=== PATIENT | female | born 1945 | race Caucasian/White ===

== ENCOUNTER 2024-02-18 20:51 | Observation (INO) | payer MEDICARE, SELFPAY ==
[2024-02-18 20:55] VITALS: BP 126/65; PULSE 62; TEMP 37.3
--- NOTE | 2024-02-18 21:01 | CT_ITS ---
The [address] [address] Patient Name: CRUZ GREEN MRN: [facility]:[id number] date: 1945 Sex: F Assigned Patient Location: ED.MAIN Current Patient Location: ER Accession/Order Number: [id number] Exam Date: 02/18/2024 21:30 Report Date: 02/18/2024 21:51 At the request of: GIRMA MARKER Procedure: CT cervical spine wo con EXAM: CT cervical spine wo con CLINICAL INDICATION: fall COMPARISON: None. TECHNIQUE: CT scanning of the cervical spine was performed in the axial plane. Coronal and sagittal reconstructed images were performed and viewed. FINDINGS: No acute fracture. The spine is in anatomic alignment. Moderate multilevel degenerative disc and facet disease. The prevertebral soft tissues are unremarkable. 9 mm hypoattenuating right thyroid lobe nodule. CT/CT cervical spine wo con IMPRESSION: No acute fracture. Right thyroid lobe nodule. Consider outpatient workup with dedicated thyroid ultrasound if not previously performed. Electronically authenticated by: JULISSA DIAZ Date: 02/18/2024 21:51
--- NOTE | 2024-02-18 21:01 | XR_ITS ---
The [address] [address] Patient Name: CRUZ GREEN MRN: [id number] date: 1945 Sex: F Assigned Patient Location: ED.MAIN Current Patient Location: ER Accession/Order Number: [id number] Exam Date: 02/18/2024 21:30 Report Date: 02/18/2024 22:12 At the request of: GIRMA MARKER Procedure: XR hip LT 2V w/ pelvis EXAM: XR hip LT 2V w/ pelvis HISTORY: fall, hip pain COMPARISON: No comparison pelvic hip imaging available at the time of dictation. TECHNIQUE: 3 views left hip pelvic x-rays FINDINGS: Mild shortening of the left femoral neck on the first 2 images but not seen on the last third image. No dislocation at the hip joint. Diffuse bony demineralization. Severe arthrosis at the bilateral hip joints, bilateral sacroiliac joints, and symphysis pubic joint. XR/XR hip LT 2V w/ pelvis IMPRESSION: Mild shortening of the left femoral neck on the first 2 images but not seen on the last 3rd image. Diffuse bony demineralization make it difficult to assess for any discrete fracture line by radiograph. Recommend cross-sectional imaging to better evaluate for any subtle subcapital impaction fracture line. Electronically authenticated by: PRABHA NAQVI Date: 02/18/2024 22:12
--- NOTE | 2024-02-18 21:02 | ED_ITS ---
HPI HPI - General Adult General Chief complaint: Extremity Injury, Lower Stated complaint: FALL Time Seen by Provider: 02/18/24 20:57 Mode of arrival: ambulance History of Present Illness HPI narrative: This 78-year-old female who is a resident at the [facility] is brought to the emergency department by EMS after she had a fall. The fall was unwitnessed. She initially had a nosebleed which has resolved and was gesturing that her left hip hurt. The patient is status post CVA with aphasia and right hemiparesis. She has been at the [facility] for the past 2 days and has been receiving subcutaneous heparin. Additional history was obtained from the patient's daughter. The patient had a stroke on December 31. She was initially evaluated at [facility] and found to have carotid artery disease. She was transferred to [facility] [place] where she had a carotid surgery that lasted approximately 10 hours. The daughter states that the patient was able to move all of her extremities and speak until after the carotid surgery. After that she has had right hemiparesis any aphasia. She was sent to [facility] in [place] for brief rehab and then transferred to the [facility]. The patient's daughter is very distraught stating that a DNR was supposed to be signed earlier today at the [facility] but did not get signed. The patient is adamant that she does not want to go to [place] [facility] again. The patient's daughter requested that I signed DNR paperwork for her. I explained DNR comfort care versus comfort care arrest and DNR comfort care paperwork was instituted. Related Data Home Medications ?Medication ?Instructions ?Recorded ?Confirmed aspirin 81 mg capsule 81 mg PO DAILY 02/18/24 02/18/24 cholecalciferol (vitamin D3) 50 50 mcg PO DAILY 02/18/24 02/18/24 mcg (2,000 unit) capsule (D3) diclofenac sodium 1 % topical gel 4 g topical QID 02/18/24 02/18/24 (Aspercreme Arthritis Pain) heparin (porcine) 1,000 unit/mL 5,000 unit subcut TID 02/18/24 02/18/24 injection solution levetiracetam 100 mg/mL oral 750 mg PO Q12H 02/18/24 02/18/24 solution lidocaine 4 % topical patch 1 patch topical DAILY 02/18/24 02/18/24 (Aspercreme (lidocaine)) mirtazapine 15 mg tablet 15 mg PO DAILY 02/18/24 02/18/24 oxycodone 5 mg tablet 5 mg PO Q8H PRN pain 02/18/24 02/18/24 ticagrelor 90 mg tablet (Brilinta) 90 mg PO DAILY 02/18/24 02/18/24 Allergies Allergy/AdvReac Type Severity Reaction Status Date / Time No Known Drug Allergies Allergy Verified 02/18/24 21:10 Opioid HPI Opioid Management Most Recent Opioid Data: No Data to Display Review of Systems ROS Status of ROS 10 or more systems reviewed and unremark able except as noted in history and below Exam Narrative Exam Narrative: Nurses note and vital signs reviewed and patient is not hypoxic. General: Awake and alert but a phasic elderly female, she is able to say yes or no, she is use of her left arm and hand. Left lower extremity is mildly shortened and her knee is bent Skin: Warm, dry, no pallor noted. There is no rash noted. Head: Normocephalic, atraumatic Eye: Normal conjunctiva, no drainage, EOMI. PERRL Ears, Nose, Mouth, and Throat: oral mucosa is moist. No notable facial droop,No active nasal bleeding Neck: no appreciable tenderness and pt shakes her head NO when I palpated her neck and asked if her neck hurt Cardiovascular: Regular Rate and Rhythm S1S2, pulses are brisk and equal bilaterally Respiratory: Patient is in no distress, no accessory muscle use, lungs are clear to auscultation, no wheezing, rales or rhonchi Back: non-tender, no CVA tenderness bilaterally to percussion. GI: Normal bowel sounds, no tenderness to palpation, no masses appreciated. No rebound, guarding, or rigidity noted. Musculoskeletal: Right hemiparesis, tenderness to left proximal femur, ROM was not attempted, left knee is bent and she is not using the left lower extremity, it does not appear to be shortened Neurological: aphasic with right hemiparesis Constitutional Vital Signs, click to edit/add: Last Vital Signs Temp 99.2 F 02/18/24 20:55 Pulse 62 02/18/24 20:55 Resp 18 02/18/24 20:55 BP 126/65 02/18/24 20:55 Course Vital Signs Vital signs: Vital Signs Temperature 99.2 F 02/18/24 20:55 Pulse Rate 62 02/18/24 20:55 Respiratory Rate 18 02/18/24 20:55 Blood Pressure 126/65 02/18/24 20:55 Temperature 99.2 F 02/18/24 20:55 Pulse Rate 62 02/18/24 20:55 Respiratory Rate 18 02/18/24 20:55 Blood Pressure 126/65 02/18/24 20:55 Medical Decision Making MDM Narrative Medical decision making narrative: This 78-year-old female was brought to the emergency department by EMS from the [facility] where she had a fall. She has been receiving subcutaneous heparin injections since being there. She had an unwitnessed fall at the [facility]. History is obtained from the [facility] staff, EMS and her daughter. The valentin phan suffered a stroke on December 31 and was taken to [facility] and ultimately transferred to [facility] in [place] where she had carotid surgery. The patient's daughter states that after the carotid surgery she has been aphasic and had right hemiparesis. She was transferred from [facility] to [facility] in [place] and then to the [facility] for rehab. According to EMS the patient was complaining of pain in the left hip area and they were concerned that she had a broken hip. She was given 25 ?g of fentanyl prior to arrival. Patient is able to speak one or 2 words including yes, no and speak her daughter's name. She has some tenderness in the left proximal femur area but is able to bend at the knee. CT scan of the brain, cervical spine and x-ray of the left hip was ordered. CT scan of the brain shows acute subarachnoid hemorrhage. CT scan of the cervical spine is negative for acute fracture. X-ray of the hip show some shortening of the extremity and a CT scan of the hip was ordered. The patient's daughter also explained to me that DNR paperwork was supposed to be signed by the [facility] physician earlier today but did not get signed. The results of the CT scan of the brain was discussed with the patient's daughter as well as the patient. The patient's daughter initially thought transferring her to [place] where she had been in the past would be a good idea , since she had been there in the recent past, however the patient became extremely upset with this and was crying and communicating with her daughter that she did not want to go. The daughter is distraught but does not wish to refuse the patient and her wishes. We discussed the DNR protocols and ultimately DNR comfort care protocol was instituted. I did explain to the patient's daughter that we do not have neurology or neurosurgery here but she could possibly be observed. The daughter verbalizes understanding of this and communicates to me that the DNR comfort care paperwork is appropriate and she does not wish to have her mother transferred. She was medicated with 4mg IV morphine and 4mg IV zofran for the left hip/leg pain. CT scan of the left hip was reviewed by radiology and is negative for fracture. Pt is agreeable to being admitted here overnight and daughter is also in agreement with this plan Case was discussed with the hospitalist and she is accepted for admission, med/surg, observation status Medical Records Medical records narrative: The [address] [address] [address] Scan Report Signed Patient: CRUZ GREEN MR#: [id number] : 1945 Acct:[id number] Age/Sex: 78 / F ADM Date: 02/18/24 Loc: ER Attending Dr: Ordering Physician: Mildred Goldman Date of Service: 02/18/24 Procedure(s): CT cervical spine wo con Accession Number(s): [id number] cc: Dorian Harrison M.D.~ The [address] [address] Patient Name: CRUZ GREEN MRN: [id number] date: 1945 Sex: F Assigned Patient Location: ED.MAIN Current Patient Location: ER Accession/Order Number: [id number] Exam Date: 02/18/2024 21:30 Report Date: 02/18/2024 21:51 At the request of: MILDRED GOLDMAN Procedure: CT cervical spine wo con EXAM: CT cervical spine wo con CLINICAL INDICATION: fall COMPARISON: None. TECHNIQUE: CT scanning of the cervical spine was performed in the axial plane. Coronal and sagittal reconstructed images were performed and viewed. FINDINGS: No acute fracture. The spine is in anatomic alignment. Moderate multilevel degenerative disc and facet disease. The prevertebral soft tissues are unremarkable. 9 mm hypoattenuating right thyroid lobe nodule. CT/CT cervical spine wo con IMPRESSION: No acute fracture. Right thyroid lobe nodule. Consider outpatient workup with dedicated thyroid ultrasound if not previously performed. Electronically authenticated by: JULISSA DIAZ Date: 02/18/2024 21:[address] [address] [address] Scan Report Signed Patient: CRUZ GREEN MR#: [id number] : 1945 Acct:[id number] Age/Sex: 78 / F ADM Date: 02/18/24 Loc: ER Attending Dr: Ordering Physician: Mildred Goldman Date of Service: 02/18/24 Procedure(s): CT head/brain wo con Accession Number(s): [id number] cc: Dorian Harrison M.D.~ The [place] [address] Patient Name: CRUZ GREEN MRN: [id number] date: 1945 Sex: F Assigned Patient Location: ED.MAIN Current Patient Location: ER Accession/Order Number: [id number] Exam Date: 02/18/2024 21:30 Report Date: 02/18/2024 22:04 At the request of: MILDRED GOLDMAN Procedure: CT head/brain wo con INDICATION: 78 years old; Female. Unwitnessed fall. TECHNIQUE: CT Head (ax/cor/sag reformats). Ionizing radiation dose reduced via iterative reconstruction/FBP blend and body size kV/mA adjustment. Comparison: None FINDINGS: POSTOPERATIVE CHANGES: None. BRAIN PARENCHYMA: Subarachnoid hemorrhage is seen within cortical sulci in the left temporoparietal region. No mass effect is seen. No midline shift or herniation is present. Old lacunar infarction is present in the right saima. Old infarctions are seen in the cerebellar hemispheres bilaterally. Old lacunar infarction in the head of the caudate on the left. Old lacunar infarction in the left thalamus. White matter is normal for age. VENTRICLES/EXTRA-AXIAL SPACES: Enlarged, consistent with atrophy. SINUSES/MASTOIDS: Mucoperiosteal thickening within a posterior ethmoid air cell on the left. Bilateral sphenoid sinus thickening. María bullosa on the right. Nasal septal deviation to the left with spur formation. Mastoids and middle ears are clear. There is a degree of mastoid sclerosis on the left. MSK: No displaced or depressed calvarial fracture. OTHER: No hyperdense intraluminal thrombus. Vascular calcifications are present. CT/CT head/brain wo con IMPRESSION: 1. Subarachnoid hemorrhage within cortical sulci in the left temporoparietal region. 2. Multiple areas of chronic infarction and nonspecific white matter changes. 3. Atrophy. 4. Vascular calcifications. A telephone call regarding the findings in examination was made to and acknowledged by Dr. Goldman in the emergency department at 10:04 PM on 02/18/2024. Electronically authenticated by: DORYS SMALL Date: 02/18/2024 22:04 [place] [address] XRay Report Signed Patient: CRUZ GREEN MR#: [id number] : 1945 Acct:[id number] Age/Sex: 78 / F ADM Date: 02/18/24 Loc: ER Attending Dr: Ordering Physician: Mildred Goldman Date of Service: 02/18/24 Procedure(s): XR hip LT 2V w/ pelvis Accession Number(s): [id number] cc: Dorian Harrison M.D.; Mildred Goldman~ [place] [address] Patient Name: CRUZ GREEN MRN: [id number] date: 1945 Sex: F Assigned Patient Location: ED.MAIN Current Patient Location: ER Accession/Order Number: [id number] Exam Date: 02/18/2024 21:30 Report Date: 02/18/2024 22:12 At the request of: MILDRED GOLDMAN Procedure: XR hip LT 2V w/ pelvis EXAM: XR hip LT 2V w/ pelvis HISTORY: fall, hip pain COMPARISON: No comparison pelvic hip imaging available at the time of dictation. TECHNIQUE: 3 views left hip pelvic x-rays FINDINGS: Mild shortening of the left femoral neck on the first 2 images but not seen on the last third image. No dislocation at the hip joint. Diffuse bony demineralization. Severe arthrosis at the bilateral hip joints, bilateral sacroiliac joints, and symphysis pubic joint. XR/XR hip LT 2V w/ pelvis IMPRESSION: Mild shortening of the left femoral neck on the first 2 images but not seen on the last 3rd image. Diffuse bony demineralization make it difficult to assess for any discrete fracture line by radiograph. Recommend cross-sectional imaging to better evaluate for any subtle subcapital impaction fracture line. Electronically authenticated by: PRABHA NAQVI Date: 02/18/2024 22:12 [place] [address] CT Scan Report Draft Patient: CRUZ GREEN MR#: [id number] : 1945 Acct:[id number] Age/Sex: 78 / F ADM Date: 02/18/24 Loc: ER Attending Dr: Ordering Physician: Mildred Goldman Date of Service: 02/18/24 Procedure(s): CT hip LT wo con Accession Number(s): [id number] cc: ~ [place] [address] Patient Name: CRUZ GREEN MRN: [id number] date: 1945 Sex: F Assigned Patient Location: ER Current Patient Location: ER Accession/Order Number: [id number] Exam Date: 02/18/2024 23:15 Report Date: 02/18/2024 23:54 At the request of: MILDRED GOLDMAN Procedure: CT hip LT wo con Initial impression only. CT/CT hip LT wo con IMPRESSION: 1. Osteopenia. No acute fracture is seen. 2. Mild to moderate left hip joint osteoarthritis. Electronically authenticated by: YANET HOLLIDAY Date: 02/18/2024 23:54 Discharge Plan Discharge Chief Complaint: Extremity Injury, Lower Clinical Impression: Fall from standing, Subarachnoid hemorrhage, Contusion of hip, left Patient Disposition: Admitted as Observation Time of Disposition Decision: 00:12 Condition: Fair Prescriptions / Home Meds: No Action levetiracetam 100 mg/mL solution 750 mg PO Q12H mirtazapine 15 mg tablet 15 mg PO DAILY oxycodone 5 mg tablet 5 mg PO Q8H PRN (Reason: pain) Brilinta 90 mg tablet 90 mg PO DAILY aspirin 81 mg capsule 81 mg PO DAILY diclofenac sodium [Aspercreme Arthritis Pain] 1 % gel 4 g topical QID Rx Instructions: apply to single knee, ankle, foot; for foot includes sole/toes/top of foot heparin (porcine) 1,000 unit/mL solution 5,000 unit subcut TID cholecalciferol (vitamin D3) [D3-2000] 50 mcg (2,000 unit) capsule 50 mcg PO DAILY lidocaine [Aspercreme (lidocaine)] 4 % adhesive patch,medicated 1 patch topical DAILY Rx Instructions: may leave on for up to 12 hrs Print Language: Bhutanese Referrals: Dorian Harrison MD [Primary Care Provider] - 1 week
--- NOTE | 2024-02-18 21:45 | CT_ITS ---
The [address] [address] Patient Name: CRUZ GREEN MRN: [id number] date: 1945 Sex: F Assigned Patient Location: ED.MAIN Current Patient Location: ER Accession/Order Number: [id number] Exam Date: 02/18/2024 21:30 Report Date: 02/18/2024 22:04 At the request of: GIRMA GOLDMAN Procedure: CT head/brain wo con INDICATION: 78 years old; Female. Unwitnessed fall. TECHNIQUE: CT Head (ax/cor/sag reformats). Ionizing radiation dose reduced via iterative reconstruction/FBP blend and body size kV/mA adjustment. Comparison: None FINDINGS: POSTOPERATIVE CHANGES: None. BRAIN PARENCHYMA: Subarachnoid hemorrhage is seen within cortical sulci in the left temporoparietal region. No mass effect is seen. No midline shift or herniation is present. Old lacunar infarction is present in the right saima. Old infarctions are seen in the cerebellar hemispheres bilaterally. Old lacunar infarction in the head of the caudate on the left. Old lacunar infarction in the left thalamus. White matter is normal for age. VENTRICLES/EXTRA-AXIAL SPACES: Enlarged, consistent with atrophy. SINUSES/MASTOIDS: Mucoperiosteal thickening within a posterior ethmoid air cell on the left. Bilateral sphenoid sinus thickening. María bullosa on the right. Nasal septal deviation to the left with spur formation. Mastoids and middle ears are clear. There is a degree of mastoid sclerosis on the left. MSK: No displaced or depressed calvarial fracture. OTHER: No hyperdense intraluminal thrombus. Vascular calcifications are present. CT/CT head/brain wo con IMPRESSION: 1. Subarachnoid hemorrhage within cortical sulci in the left temporoparietal region. 2. Multiple areas of chronic infarction and nonspecific white matter changes. 3. Atrophy. 4. Vascular calcifications. A telephone call regarding the findings in examination was made to and acknowledged by Dr. Goldman in the emergency department at 10:04 PM on 02/18/2024. Electronically authenticated by: DORYS SMALL Date: 02/18/2024 22:04
--- NOTE | 2024-02-18 22:18 | CT_ITS ---
The [address] [address] Patient Name: CRUZ GREEN MRN: [id number] date: 1945 Sex: F Assigned Patient Location: ER Current Patient Location: ER Accession/Order Number: [id number] Exam Date: 02/18/2024 23:15 Report Date: 02/19/2024 00:03 At the request of: GIRMA ZAMORA Procedure: CT hip LT wo con EXAM: CT hip LT wo con HISTORY: Fall, hip pain, unwitnessed fall. Left hip pain. COMPARISON: X-rays 02/18/2024. TECHNIQUE: Multiple axial unenhanced CT images of the left hip were supplemented with 2-D coronal and sagittal reformations. Dose reduction techniques were achieved by using automated exposure control and/or adjustment of mA and/or kV according to patient size and/or use of iterative reconstruction technique. FINDINGS: Bones are osteopenic. Bony pelvis appears preserved, as seen. Mild to moderate marginal spur involving the left hip. Left hip is normally located. Left femoral head appears smooth. Left femoral neck is maintained. Mild to moderate calcific plaque is seen. Small left inguinal hernia containing fat. Major tendon origins and insertions along the left hip appear preserved. Left sciatic nerve appears unremarkable. CT/CT hip LT wo con IMPRESSION: 1. Osteopenia. No acute fracture is seen. 2. Mild to moderate left hip joint osteoarthritis. Electronically authenticated by: YANET HOLLIDAY Date: 02/19/2024 00:03
[2024-02-19] MEDS: MORPHINE SULFATE 4 MG/ML VIAL IV (00:08)
[2024-02-19] MEDS: ONDANSETRON PF 4 MG/2 ML VIAL IV (00:09)
[2024-02-19 00:12] VITALS: BP 145/79; PULSE 76; O2SAT 98
[2024-02-19 01:16] VITALS: BP 136/73; PULSE 53; TEMP 36.2; O2SAT 96; BMI 22.2
[2024-02-19 01:35] VITALS: PULSE 53; O2SAT 96
[2024-02-19 02:18] LABS: Prothrombin Time 9.8 sec (9.0-11.6)
[2024-02-19 02:19] LABS: Alanine Aminotransferase 27 U/L (14-59); Albumin Globulin Ratio 0.8; Albumin Level 2.6 g/dL (3.4-5.0); Alkaline Phosphatase 87 U/L (46-116); Anion Gap 11.5; Aspartate Amino Transferase 35 U/L (15-37); BUN Creatinine Ratio 12.9; Bilirubin Total 0.2 mg/dL (0.2-1.0); Carbon Dioxide 24.4 mmol/L (21.0-32.0); Chloride 109 mmol/L (98-107); Estimated GFR (African America 44 (>=60); Estimated GFR (Non-African Ame 36 (>=60); Globulin 3.3 g/dL; Glucose 106 mg/dL (74-106); Potassium 4.9 mmol/L (3.5-5.1); Sodium 140 mmol/L (136-145); Total Protein 5.9 g/dL (6.4-8.2)
[2024-02-19 02:21] LABS: INR <0.93
[2024-02-19 02:37] LABS: Basophils Percent Auto 0.3 % (0.2-2.0); Eosinophils Absolute Auto 0.1 10^3/uL (0.0-0.7); Eosinophils Percent Auto 1.8 % (0.9-7.0); Hematocrit 35.3 % (36.0-48.0); Hemoglobin 10.9 g/dL (12.0-16.0); Immature Granulocytes Abs Auto 0.04 10^3/uL (0.00-0.03); Immature Granulocytes Pct Auto 0.5 % (0.0-0.5); Lymphocytes Absolute Auto 1.4 10^3/uL (1.2-3.8); Lymphocytes Percent Auto 18.7 % (20.5-60.0); Mean Corpuscular HGB Conc 30.9 g/dL (29.9-35.2); Mean Corpuscular Hemoglobin 29.5 pg (26.7-34.0); Mean Corpuscular Volume 95.7 fL (81.0-99.0); Mean Platelet Volume 9.7 fL (9.5-13.5); Monocytes Absolute Auto 0.7 10^3/uL (0.3-0.8); Monocytes Percent Auto 9.2 % (1.7-12.0); Neutrophils Absolute Auto 5.3 10^3/uL (1.4-6.5); Neutrophils Percent Auto 69.5 % (43.0-75.0); Platelet Count 342 10^3/uL (150-450); Red Blood Count 3.69 10^6/uL (4.20-5.40); Red Cell Distribution Width 16.8 % (11.0-15.0); White Blood Count 7.6 10^3/uL (4.0-11.0)
[2024-02-19 03:14] LABS: Bilirubin Urine NEGATIVE (NEGATIVE); Blood Urine NEGATIVE (NEGATIVE); Clarity Urine CLEAR (CLEAR); Color Urine LT. YELLOW (YELLOW); Glucose Urine UA NEGATIVE (NEGATIVE); Ketones Urine TRACE mg/dL (NEGATIVE); Leukocyte Esterase Urine SMALL (NEGATIVE); Nitrite Urine NEGATIVE (NEGATIVE); Protein Urine NEGATIVE (NEG/TRACE); Specific Gravity Urine 1.025 (1.005-1.025); Urobilinogen Urine 0.2 EU/dL (0.2-1.0); pH Urine 5.5 (5.0-9.0)
[2024-02-19 03:20] LABS: Bacteria Urine SMALL #/HPF (NONE SEEN); Cast Seen? SEEN #/LPF (NONE SEEN); Crystals Seen? None Seen #/HPF (None Seen); Mucus Urine NONE SEEN (NONE SEEN); Squamous Epithelial Cell Urine MODERATE #/LPF (NONE/RARE)
[2024-02-19 03:21] LABS: Hyaline Casts Urine RARE; Urine Culture Indicated YES
[2024-02-19 09:00] VITALS: BP 107/45; BP 86/59; PULSE 63; TEMP 37.2; O2SAT 93
--- NOTE | 2024-02-19 09:29 | SWNOTE1 ---
LACEY sent email to Guicho at [facility] and Guicho confirmed that pt is at [facility] skilled for rehab.
[2024-02-19] MEDS: OXYCODONE HCL 5 MG TABLET PO (09:31)
[2024-02-19] MEDS: LEVETIRACETAM 500 MG in 0.9 % SODIUM CHLORIDE 100 ML 420 MG IV (09:31)
[2024-02-19] MEDS: MIRTAZAPINE 15 MG TABLET PO (09:32)
[2024-02-19] MEDS: LIDOCAINE 5% PATCH 1 PATCH TOPICAL (09:32)
[2024-02-19] MEDS: CHOLECALCIFEROL (VITAMIN D3) 25 MCG/1,000 UNITS TABLET 50 MCG PO (09:32)
[2024-02-19] MEDS: 0.9 % SODIUM CHLORIDE 500 ML 250 ML IV (09:38)
--- NOTE | 2024-02-19 09:56 | P.HP_ITS ---
<Statement entered by Sabrina Enriquez, - 02/20/24 09:50> This documentation has been reviewed and approved.I have also seen and assessed patient and agree to the above findings and plan of care. HPI H&P: HPI History of Present Illness Chief complaint: FALL SAH LEFT HIP CONTUSION Narrative: 02/19/24 0900 This is a 78-year-old female patient with a past medical history as outlined below significant for recent CVA (01/01/2024 with subsequent carotid endarterectom y with worsened right-sided symptoms post endarterectomy and seizure activity on EEG; who presented to the ED from a local SNF last night after suffering an unwitnessed fall. Cause of the fall is unclear, but it appears the patient was trying to put herself to bed from her wheelchair and she is unable to stand and walk independently. She complained of left hip pain after the fall and the limb appeared to be shortened. She was brought to the ED for further evaluation. Workup in the ED was negative for acute fracture of the hip. Initial x-ray indicated shortening of the femur with no obvious fracture. A follow-up CT of the hip and pelvis showed no acute fracture or dislocation. CT of the cervical spine was negative for fracture but did show incidental thyroid nodule. CT of the head revealed subarachnoid hemorrhage in the left temporoparietal region, without mass effect, midline shift, or herniation. Multiple old areas of infarction were noted. The patient adamantly refuses transfer to tertiary facility for specialty neurology and neurosurgery care. She was admitted in our facility in observation for neurologic monitoring early this morning. At the time of my exam the patient is resting in bed. She was initially restless and tearful and nodded her head yes to hip pain when questioned. She was repositioned and her pain improved. Her daughter is at the bedside and giv es a full history of the patient's recent medical history. At baseline she has severe residual right-sided hemiparesis and expressive aphasia. She is normally only able to say yes , no , and her daughter's name Nuvia . Interestingly, she was able to be more expressive last night when she was refusing transfer. Per the patient's daughter, the patient's neurologic status is stable at her [facility]. She will be seen by PT/OT/[employer] services today. Nursing will monitor for neurologic changes. If she remains stable discharged back to her local SNF is possible as the patient is a DNR CC and is refusing interventional care for her new subarachnoid hemorrhage. We did briefly discuss possible hospice admission, and the patient's daughter would like to continue pursuing strengthening for now. If the patient shows any further decline in her neurologic status, then hospice would be considered. DISCHARGE: As the pt is at her baseline neurologic status and she is refusing transfer for interventional neurology care, she is being discharged back to her SNF in stable condition. Her home aspirin, brilinta, and heparin have been held d/t her acute subarachnoid hemorrhage. She should follow up with neurology as soon as possible to discuss if these should be resumed. Aggressive PO/OT/[employer] services should be continued at the SNF. Opioid HPI Opioid Management Most Recent Opioid Data: Last Pain Assessment 02/19/24 11:47 Last MAR Pain Assessment 02/19/24 10:30 Last ORT Total Score 0 02/19/24 01:16 Last ORT Risk Category Low Risk 02/19/24 01:16 Review of Systems ROS Status of ROS unobtainable due to medical condition (Near total expressive aphasia) PFSH [facility] Medical History (Updated 02/19/24 @ 11:25 by Kaelyn Calderón NP) Seizure-like activity ?R56.9 - Unspecified convulsions (ICD-10) Hyperlipidemia ?E78.5 - Hyperlipidemia, unspecified (ICD-10) HTN (hypertension) ?I10 - Essential (primary) hypertension (ICD-10) CKD stage 3a, GFR 45-59 ml/min ?N18.31 - Chronic kidney disease, stage 3a (ICD-10) Expressive aphasia ?R47.01 - Aphasia (ICD-10) CVA, old, hemiparesis ?I69.359 - Hemiplegia and hemiparesis following cerebral infarction affecting unspecified side (ICD-10) Family History (Updated 02/19/24 @ 01:24 by Noemi Garcia) Other Family history of cancer Family history of hypertension Family history of myocardial infarction Family history of stroke Social History (Updated 02/19/24 @ 01:25 by Noemi Garcia) Within the past year, how often did you have a drink containing alcohol: never Score interpretation: A score less than 3 is consistent with normal alcohol consumption. Smoking status: Never smoker Non-prescribed substance use: denies use Previous occupational history: Retired Are you now , , , , never or living with a partner: In a typical week, how many times do you talk on the telephone with family, friends, or neighbors: 3 or more times per week How often do you get together with friends or relatives: 3 or more times per week Do you think of yourself as: straight/heterosexual Gender Identity: female Meds Home Medications and Allergies Home Medications ?Medication ?Instructions ?Recorded ?Confirmed ?Type aspirin 81 mg capsule 81 mg PO DAILY 02/18/24 02/18/24 History cholecalciferol (vitamin D3) 50 50 mcg PO DAILY 02/18/24 02/18/24 History mcg (2,000 unit) capsule (D3-2000) diclofenac sodium 1 % topical gel 4 g topical QID 02/18/24 02/18/24 History (Aspercreme Arthritis Pain) heparin (porcine) 1,000 unit/mL 5,000 unit subcut TID 02/18/24 02/18/24 History injection solution levetiracetam 100 mg/mL oral 750 mg PO Q12H 02/18/24 02/18/24 History solution lidocaine 4 % topical patch 1 patch topical DAILY 02/18/24 02/18/24 History (Aspercreme (lidocaine)) mirtazapine 15 mg tablet 15 mg PO DAILY 02/18/24 02/18/24 History oxycodone 5 mg tablet 5 mg PO Q8H PRN pain 02/18/24 02/18/24 History ticagrelor 90 mg tablet (Brilinta) 90 mg PO DAILY 02/18/24 02/18/24 History Allergies Allergy/AdvReac Type Severity Reaction Status Date / Time No Known Drug Allergies Allergy Verified 02/18/24 21:10 Exam Constitutional Vital Signs, click to edit/add: Last Vital Signs Temp 97.2 F L 02/19/24 01:16 Pulse 53 L 02/19/24 01:35 Resp 18 02/19/24 01:35 BP 136/73 02/19/24 01:16 Pulse Ox 96 02/19/24 01:35 O2 Del Method Room Air 02/19/24 01:35 Common normals: alert and well nourished Exam limitations: physical limitations (R side hemiparesis) and other l imitations (Expressive aphasia) General appearance: cooperative (within physical limitations) Orientation/consciousness: Yes awake Other: Unable to fully assess orientation or confusion d/t near total expressive aphasia HENMT Common normals: normocephalic, hearing grossly normal bilaterally, external nose normal and moist oral mucous membranes Head and scalp: normocephalic Eye Common normals: PERRL, EOMs intact bilaterally, conjunctivae normal and no scleral icterus Alignment: alignment normal Eyelid: eyelids normal Neck & C-Spine Common normals: full ROM, supple and no JVD Chest Common normals: inspection of chest normal Chest: symmetrical chest wall rise Respiratory Common normals: normal respiratory effort, no retractions, no use of accessory muscles and clear to auscultation bilaterally Cardio Common normals: no JVD, regular rate, regular rhythm, S1 normal heart sound, S2 normal heart sound, no gallops, no clicks, no murmurs, no rub and peripheral pulses 2+ throughout GI Common normals: Normal to inspection, nondistended, normoactive bowel sounds present, soft to palpation, non-tender, no hepatosplenomegaly, no masses and no bruits Bladder/kidney exam: bladder normal to palpation Extremity Common normals: normal capillary refill General: normal exam except as noted and edema (Tr LLE, 1+ RLE); no clubbing and no cyanosis Left lower extremity: hip joint Left hip: palpation (Tender) Neuro [place] Coma Scale: GCS not evaluated Sensorium/orientation: awake and alert Speech: expressive aphasia (Near total) Motor exam: other (Chronic R side hemiparesis, R facial droop) Psych Speech: other (Near total expressive aphasia) Results Labs Labs: Short CBC 02/19/24 Range/Units 01:56 WBC 7.6 (4.0-11.0) 10^3/uL Hgb 10.9 L (12.0-16.0) g/dL Hct 35.3 L (36.0-48.0) % Plt Count 342 (150-450) 10^3/uL BMP 02/19/24 01:56 Sodium 140 Potassium 4.9 Chloride 109 H Carbon Dioxide 24.4 BUN 18.0 Creatinine 1.40 H Glucose 106 Calcium 10.0 Liver Function 02/19/24 Range/Units 01:56 Total Bilirubin 0.2 (0.2-1.0) mg/dL AST 35 (15-37) U/L ALT 27 (14-59) U/L Alkaline Phosphatase 87 (46-116) U/L Albumin 2.6 L (3.4-5.0) g/dL Urine 02/19/24 Range/Units 03:02 Urine Color Lt. yellow (YELLOW) Urine Clarity Clear (CLEAR) Urine pH 5.5 (5.0-9.0) Ur Specific [place] 1.025 (1.005-1.025) Urine Protein Negative (NEG/TRACE) mg/dL Urine Glucose (UA) Negative (NEGATIVE) mg/dL Pulse Oximetry Attestation: I have reviewed the pertinent pulse oximetry results. Imaging L Hip/Pelvis X-ray: Attestation: I have reviewed the pertinent imaging results. Radiologist's impression: IMPRESSION: Mild shortening of the left femoral neck on the first 2 images but not seen on the last 3rd image. Diffuse bony demineralization make it difficult to assess for any discrete fracture line by radiograph. Recommend cross-sectional imaging to better evaluate for any subtle subcapital impaction fracture line. CT Scan - L Hip/Pelvis: Attestation: I have reviewed the pertinent imaging results. Radiologist's impression: IMPRESSION: 1. Osteopenia. No acute fracture is seen. 2. Mild to moderate left hip joint osteoarthritis. CT scan - head: Attestation: I have reviewed the pertinent imaging results. Radiologist's impression: IMPRESSION: 1. Subarachnoid hemorrhage within cortical sulci in the left temporoparietal region. 2. Multiple areas of chronic infarction and nonspecific white matter changes. 3. Atrophy. 4. Vascular calcifications. CT Scan - Cervical Spine: Attestation: I have reviewed the pertinent imaging results. Radiologist's impression: IMPRESSION: No acute fracture. Right thyroid lobe nodule. Consider outpatient workup with dedicated thyroid ultrasound if not previously performed. Assessment and Plan Assessment and Plan (1) Subarachnoid hemorrhage: Assessment and Plan: Acute * Adm observation * 2/2 to unwitnessed fall last night * Pt refusing transfer to tertiary center or interventional management * Pt made DNR CC in the ED * Neuro checks q8h to monitor for neurologic decline * Per daughter at bedside, pt is at her baseline neurologic status * If no decline is noted for the next several hrs, pt will likely be discharged back to the SNF for continued rehab therapy * Discussed with pt's daughter, if pt experiences neurologic decline then hospice/comfort care could be considered at the SNF. She verbalizes understanding. (2) Unwitnessed fall: Assessment and Plan: Acute * Fall at SNF last night * Family suspects pt was trying to put herself to bed, but she is unable to stand by herself (3) JAMEE (acute kidney injury): Assessment and Plan: Acute * Mild JAMEE on CKD3a * NS 500 ml bolus over 2 hrs * Encourage increased PO fluid intake (4) Contusion of hip, left: Assessment and Plan: Acute * No fracture identified on hip XR or CT hip * PRN IVP MS or Oxycodone (5) CVA, old, hemiparesis: Assessment and Plan: Chronic * R side residual hemiparesis (6) CKD stage 3a, GFR 45-59 ml/min: Assessment and Plan: Chronic * Pt at risk for dehydration and JAMEE d/t expressive aphasia and mild dysphagia from CVA * Push oral fluids (7) Seizure-like activity: Assessment and Plan: Chronic * Continue home Keppra Urinary Catheter Management Urinary Catheter Management Urethral: Cath placed during this visit: yes Urethral indwelling: Yes Reason for continuing: decision to DC catheter Insertion date: 02/19/24 Insertion time: 02:50
--- NOTE | 2024-02-19 10:20 | SWNOTE1 ---
SW did reach out to Guicho at [facility] to see if pt can return within 24 hours since she is in observation and she would not have to be precerted again. LACEY waiting to hear back. Daughter spoke with Guicho at [facility] and daughter is paying to hold the bed.
--- NOTE | 2024-02-19 12:00 | CM.NOTE ---
Rounds made with Dr. Enriquez, pt resting quietly eyes closed. Dr. Enriquez talked with pt's granddaughter regarding plan of care. Pt and family wishes were to not be transferred to a higher level of care for intervention. Code status was changed to DNRCC. Family wishes are to send patient back to attempt to resume skilled therapy, if she were to decline than consult hospice care.
--- NOTE | 2024-02-19 12:12 | SWNOTE1 ---
LACEY called Guicho at [facility] to check if pt can come back without precert. Guicho is waiting to hear from here boss. LACEY did send Guicho an email to let her know the plan is for discharge today. LACEY updated family and let them know we are waiting to hear from the [facility].
--- NOTE | 2024-02-19 13:14 | SWNOTE1 ---
LACEY sent Guicho another email and called. She had someone in her office and they will have her call once done.
[2024-02-19 13:46] VITALS: BP 99/56; PULSE 47; TEMP 37.2; O2SAT 95
[2024-02-19] MEDS: LEVETIRACETAM 250 MG TABLET PO (13:50)
--- NOTE | 2024-02-19 15:55 | CM.NOTE ---
Called and scheduled f/u appt with Dr. Olvera and updated discharge paperwork.
--- NOTE | 2024-02-19 16:04 | SWNOTE1 ---
After several conversations and waiting for phone call back, LACEY did receive phone call from Johanna at [facility]. She apologized for the confusion and voiced they are taking the patient back and to go ahead and set up transport. LACEY set up [facility] for 4:30pm. LACEY notified family and [facility] of time. LACEY took packet out to [facility]. LACEY had already faxed over face sheet, ED note, H&P, med list, PT/OT/ST notes, labs, vitals, daignostic imaging, and med list to [facility] earlier today. LACEY faxed over dc med rec as well. Pt is returning to [facility] skilled.
== END 2024-02-19 16:50 ==
LOC: ER 02-19 00:23 → MS 02-19 01:13
PROVIDERS: Nurse Practitioner Acute Care; Admitting Provider Family Medicine; Emergency Provider Emergency Medicine; PCP Family Medicine; Visit Provider Nurse Practitioner
DX: S06.6X0A Traumatic subarachnoid hemorrhage without loss of consciousness, initial encounter (principal); N17.9 Acute kidney failure, unspecified; N18.31 Chronic kidney disease, stage 3a; S70.02XA Contusion of left hip, initial encounter; I69.351 Hemiplegia and hemiparesis following cerebral infarction affecting right dominant side; R56.9 Unspecified convulsions; E78.5 Hyperlipidemia, unspecified; I12.9 Hypertensive chronic kidney disease with stage 1 through stage 4 chronic kidney disease, or unspecified chronic kidney disease; I25.10 Atherosclerotic heart disease of native coronary artery without angina pectoris; I69.320 Aphasia following cerebral infarction; W19.XXXA Unspecified fall, initial encounter; Z79.82 Long term (current) use of aspirin; Z79.899 Other long term (current) drug therapy; Z66 Do not resuscitate
CPT/HCPCS: 36415; 51702; 70450; 72125; 73502; 73700; 80053; 81001; 85025; 85610; 87086; 92610; 96365; 96375; 97162; 97165; 99285; G0378

== ENCOUNTER 2024-04-13 13:31 | Outpatient (OUT) | payer MEDICARE, SELFPAY ==
--- NOTE | 2024-04-13 | CT_ITS ---
The [address] [address] Patient Name: CRUZ GREEN MRN: [id number] date: 1945 Sex: F Assigned Patient Location: CT Current Patient Location: Accession/Order Number: [id number] Exam Date: 04/13/2024 13:45 Report Date: 04/14/2024 13:31 At the request of: AMARILIS KEITH Procedure: CT head/brain wo con EXAMINATION: CT head/brain wo con HISTORY: Subarachnoid hemorrhage, ischemic stroke ; follow-up COMPARISON: CT head 02/18/2024 TECHNIQUE: Axial CT images were obtained without IV contrast. Dose reduction techniques were achieved by using automated exposure control and/or adjustment of mA and/or kV according to patient size and/or use of iterative reconstruction technique. FINDINGS: BRAIN: Clearing of previously seen subarachnoid blood within left sylvian fissure and temporal lobe sulci. No edema, hemorrhage, mass, acute infarction, or inappropriate atrophy. CSF SPACES: No hydrocephalus, subarachnoid hemorrhage, or mass. Appropriate for age. SKULL: No fracture, mass, or other significant visible lesion. SINUSES: No significant mucosal thickening or fluid on the limited views. ORBITS: No appreciable abnormality on the limited views. OTHER: Negative CT/CT head/brain wo con IMPRESSION: 1. Clearing of previously seen subarachnoid blood. No new or acute findings. 2. Stable age consistent atrophy and chronic small vessel ischemic changes. Electronically authenticated by: DANDRE JONES Date: 04/14/2024 13:31
== END 2024-04-13 13:32 | disposition home or self-care (01) ==
LOC: CT 13:31
PROVIDERS: PCP Family Medicine; Visit Provider Psychiatry & Neurology Neurology
DX: I60.9 Nontraumatic subarachnoid hemorrhage, unspecified (principal); Z86.73 Personal history of transient ischemic attack (TIA), and cerebral infarction without residual deficits; I77.9 Disorder of arteries and arterioles, unspecified
CPT/HCPCS: 70450

== ENCOUNTER 2024-04-17 15:06 | Inpatient (IN) | payer MEDICARE, SELFPAY ==
[2024-04-17] VITALS (17 sets, daily range): BP systolic 77–184; BP diastolic 37–95; PULSE 41–97; TEMP 36.4–36.6; O2SAT 93–99; BMI 22.1; BMI 17.5
--- OUTSIDE RECORDS SUMMARY | 2024-04-17 15:20 | XMS_ITS | CCD ---
Author Organization [facility] Care Team Providers Care Mixer Pigment Name Role Phone UNKNOWN, PCP Unavailable Unavailable KALLI, TAYLOR Unavailable Unavailable KALLI, TAYLOR Unavailable Unavailable COVERDAVENU GERMAIN Unavailable Unavailable STAPLETON, EARL Unavailable Unavailable STAPLETON, EARL Unavailable Unavailable STAPLETON, EARL Unavailable Unavailable Amarilis TORRES Primary Care Physician Amarilis Torres MD Primary Care Provider JENNYFER GUZMAN Attending Unavailable REF PROV, NOT IN SYSTEM Referring Unavaila SAMIR Echavarria Consulting Unavailable PATRICE, RADHA F Admitting Unavailable MARQUITA OSHEA Consulting Unavailable JELANI GIBSON Consulting Unavailable BENJAMÍN GARCIA Consulting Unavailable FERNANDO MCDANIEL Consulting Unavailable GLORIA OMER Consulting Unavailable PATRICE, RADHA F Referring Unavailable AMARILIS TORRES Primary Care Unavailable KEVIN LOPEZ Attending Unavailable KEVIN LOPEZ Admitting Unavailable JULISSA CAVANAUGH Consulting Unavailable DELMY ANDREWS Consulting Unavailable ANA MOLINA Consulting Unavailable BARRETT PALMER Consulting Unavailable KATHE SANTANA Consulting Unavailable COTTOJACLYNEL Consulting Unavailable AUDELIA JOQAUÍN Consulting Unavailable DORYS ROCKWELL Consulting Unavailable CELESTINO COTTO Attending Unavailable JACLYN COTTOEL Referring Unavailable KEANU RHODES Attending Unavailable Amarilis TORRES Primary Care Physician Amarilis TORRES Admitting Unavailable Amarilis TORRES Attending Unavailable Christiano Castillo Consulting Unavailable Daniel Brown Admitting Unavailable Daniel Brown Attending Unavailable MD Christiano Castillo Consulting Unavailable Calumet, Christiano Consulting Unavailable Calumet, Christiano Consulting Unavailable [place]um[place], Christiano Consulting Unavailable [place], Christiano Consulting Unavailable [place], Christiano Consulting Unavailable [place], Christiano Consulting Unavailable [place], Christiano Consulting Unavailable Benjamín Ibanez Attending Unavailable BROWN, Christopher Referring Unavailable BROWN, Christopher Attending Unavailable BROWN, Christopher Referring Unavailable Ayesha Hdz Attending Unavaila ble BROWN, Christopher Attending Unavailable BROWN, Christopher Attending Unavailable BROWN, Christopher Attending Unavailable BROWN, Christopher Attending Unavailable BROWN, Christopher Attending Unavailable BROWN, Christopher Attending Unavailable BROWN, Christopher Admitting Unavailable BROWN, Christopher Attending Unavailable BROWN, Christopher Admitting Unavailable ROZINA BETTENCOURT Attending Unavailable SAGAR, AMARILIS Attending Unavailable HUBERT ANN Referring Unavailable ROZINA BETTENCOURT Attending Unavailable Allergies Allergy Classification Reported Allergen(s) Allergy Type Date of Onset Reaction(s) Facility (1 source) No Known Medication Allergies; Translations: [No Known Medication Allergies] Propensity to adverse reactions (disorder) [facility] Repository Medications Current Medications Medication Drug Class(es) Dates Sig (Normalized) Sig (Original) amLODIPine 2.5 mg oral tablet (13 sources) Dihydropyridine Calcium Channel Salas Start: 11-11-2023 take 1 tablet by mouth once daily amLODIPine 2.5 mg Tab 2.5 mg = 1 tab(s), Oral, Daily, # 90 tab(s), Refills(s) 1, Pharmacy: [facility], 142.2, cm, 11/11/23 18:43:00 EST, Height/Length Dosing, 51.5, kg, 11/11/23 18:43:00 EST, Weight Dosing Start Date: 11/11/23 Status: Ordered Start: 05-10-2022 take 1 tablet by denisse th once daily amLODIPine 2.5 mg Tab 2.5 mg = 1 tab(s), Oral, Daily, # 90 tab(s), Refills(s) 1, Pharmacy: [facility] ([facility] ), 142.2, cm, 05/13/23 18:52:00 EDT, Height/Length Dosing, 55.4, kg, 05/13/23 18:52:00 EDT, Weight Dosing Start Date: 05/13/23 Status: Ordered aspirin 81 mg delayed release oral tablet (14 sources) Platelet Aggregation Inhibitor, Nonsteroidal Anti-inflammatory Drug Start: 05-10-2022 take 1 tablet by mouth once daily aspirin 81 mg Oral EC Tab 81 mg = 1 tab(s), Oral, Daily, # 90 tab(s), Refills(s) 1, Pharmacy: [facility] ([facility] ), 142.2, cm, 05/13/23 18:52:00 EDT, Height/Length Dosing, 55.4, kg, 05/13/23 18:52:00 EDT, Weight Dosing Start Date: 05/13/23 Status: Ordered atorvastatin 80 mg oral tablet (14 sources) HMG-CoA Reductase Inhibitor Start: 05-10-2022 take 1 tablet by mouth at bedtime atorvastatin 80 mg Tab 80 mg = 1 tab(s), Oral, Bedtime, # 90 tab(s), Refills(s) 1, Pharmacy: [facility], 142.2, cm, 11/11/23 18:43:00 EST, Height/Length Dosing, 51.5, kg, 11/11/23 18:43:00 EST, Weight Dosing Start Date: 11/11/23 Status: Ordered escitalopram 10 mg oral tablet (1 source) Serotonin Reuptake Inhibitor Start: 01-19-2024 take 1 tablet by mouth in the morning escitalopram (LEXAPRO) 10 mg tablet Take 1 tablet (10 mg total) by mouth in the morning. 0 01/19/2024 Active levETIRAcetam 750 mg oral tablet (1 source) Start: 01-19-2024 take 1 tablet by mouth in the morning, then take 1 tablet by mouth at bedtime levETIRAcetam (KEPPRA) 750 mg tablet Take 1 tablet (750 mg total) by mouth in the morning and 1 tablet (750 mg total) before bedtime. 0 01/19/2024 Active lisinopril 40 mg oral tablet (14 sources) Angiotensin Converting Enzyme Inhibitor Start: 05-10-2022 take 1 tablet by mouth once daily lisinopril 40 mg Tab 40 mg = 1 tab(s), Oral, Daily, # 90 tab(s), Refills(s) 1, Pharmacy: [facility], 142.2, cm, 11/11/23 18:43:00 EST, Height/Length Dosing, 51.5, kg, 11/11/23 18:43:00 EST, Weight Dosing Start Date: 11/11/23 Status: Ordered ticagrelor 90 mg oral tablet (1 source) Start: 01-19-2024 take 1 tablet by mouth once ticagrelor (BRILINTA) 90 mg tablet Take 1 tablet (90 mg total) by mouth every 12 (twelve) hours. 0 01/19/2024 Active Completed/Discontinued Medications Medication Drug Class(es) Dates Sig (Normalized) Sig (Original) 1 ml heparin sodium, porcine 5000 unt/ml injection (1 source) Unfractionated Heparin, Anti-coagulant Start: 01-19-2024 inject 1 mL by subcutaneous injection every eight hours heparin sodium,porcine (heparin, porcine,) 5,000 unit/mL injection Inject 1 mL (5,000 Units total) under the skin every 8 (eight) hours. VTE ppx, can discontinue once patient more ambulatory 0 01/19/2024 Active potassium chloride 20 meq extended release oral tablet (14 sources) Start: 11-11-2023 take 1 tablet by mouth once daily potassium chloride 20 mEq ER Tab 20 mEq = 1 tab(s), Oral, Daily, # 90 tab(s), Refills(s) 1, Pharmacy: [facility], 142.2, cm, 11/11/23 18:43:00 EST, Height/Length Dosing, 51.5, kg, 11/11/23 18:43:00 EST, Weight Dosing Start Date: 11/11/23 Status: Ordered Start: 05-13-2023 take 1 tablet by denisse th once daily potassium chloride 20 mEq ER Tab 20 mEq = 1 tab(s), Oral, Daily, # 90 tab(s), Refills(s) 1, Pharmacy: [facility] ([facility] ), 142.2, cm, 05/13/23 18:52:00 EDT, Height/Length Dosing, 55.4, kg, 05/13/23 18:52:00 EDT, Weight Dosing Start Date: 05/13/23 Status: Ordered Start: 11-12-2022 take 1 tablet by denisse th once daily potassium chloride 20 mEq ER Tab 20 mEq = 1 tab(s), Oral, Daily, # 90 tab(s), Refills(s) 1, Pharmacy: [facility] ([facility] ), 142.2, cm, 11/12/22 18:20:00 EST, Height/Length Dosing, 55.3, kg, 11/12/22 18:20:00 EST, Weight Dosing Start Date: 11/12/22 Status: Ordered Start: 05-10-2022 take 1 tablet by denisse th once daily potassium chloride 20 mEq ER Tab 20 mEq = 1 tab(s), Oral, Daily, # 90 tab(s), Refills(s) 1, Pharmacy: [facility], 142.2, cm, 05/10/22 16:27:00 EDT, Height/Length Dosing, 55.3, kg, 05/10/22 16:27:00 EDT, Weight Dosing Start Date: 05/10/22 Status: Ordered take 1 tablet by denisse th in the morning potassium chloride (KLOR-CON M 20) 20 MEQ CR tablet Take 1 tablet (20 mEq total) by mouth in the morning. 0 Active Problems Active Problems Problem Classification Problem Date Documented Da te Episodic/Chronic Acute cerebrovascular disease (20 sources) Cerebrovascular accident; Translations: [Cerebral infarction] Onset: 4 03-20-2020 Chronic Acute cerebrovascular disease (1 source) Neurological symptom; Translations: [NIHSS score 2] Episodic Administrative/social admission (2 sources) Other reduced mobility; Translations: [Other reduced mobility] Onset: 4 Episodic Cardiac dysrhythmias (3 sources) Bradycardia, unspecified; Translations: [Bradycardia, unspecified] Onset: 4 Episodic Chronic kidney disease (20 sources) Chronic kidney disease stage 3; Translations: [Chronic kidney disease, stage 3 unspecified] Onset: 2 Chronic Comment on above: linked HTN with CKD per outpatient CDI policy. Coronary atherosclerosis and other heart disease (18 sources) Coronary atherosclerosis; Translations: [Atherosclerotic heart disease of barrow coronary artery without angina pectoris] Onset: 2 Chronic Coronary atherosclerosis and other heart disease (4 sources) Presence of aortocoronary bypass graft; Translations: [Coronary angioplasty status] Onset: 4 Episodic Coronary atherosclerosis and other heart disease (1 source) Coronary atherosclerosis and other heart disease Onset: 8 Disorders of lipid metabolism (18 sources) Mixed hyperlipidemia; Translations: [Mixed hyperlipidemia] Onset: 2 Chronic Diverticulosis and diverticulitis (2 sources) Diverticulitis of large intestine without perforation or abscess without bleeding; Translations: [Diverticulitis of large intestine without perforation or abscess without bleeding] Onset: 4 Chronic E Codes: Fall (2 sources) Fall; Translations: [Unspecified fall, initial encounter] Onset: 4 Episodic E Codes: Place of occurrence (1 source) Bedroom of unspecified non-institutional (private) residence as the place of occurrence of the external cause; Translations: [Place of occurrence of accident or poisoning, noninstitutional place of residence (environment)] Episodic Epilepsy; convulsions (4 sources) Seizure; Translations: [Unspecified convulsions] Onset: 4 01-13-2024 Episodic Essential hypertension (15 sources) Essential hypertension; Translations: [Essential (primary) hypertension] Onset: 2 Chronic Essential hypertension (1 source) Essential hypertension Onset: 8 Hypertension with complications and secondary hypertension (3 sources) Chronic kidney disease due to hypertension; Translations: [Hypertensive chronic kidney disease with stage 1 through stage 4 chronic kidney disease, or unspecified chronic kidney disease] Onset: 3 Chronic Immunizations and screening for infectious disease (1 source) Vaccination given; Translations: [Encounter for immunization] Onset: 3 Episodic Late effects of cerebrovascular disease (12 sources) 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; 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] 03-20-2020 Chronic Malaise and fatigue (1 source) Asthenia; Translations: [Weakness] Onset: 4 Episodic Mood disorders (5 sources) Mood disorders; Translations: [Depression, unspecified] Onset: 4 01-02-2024 Noninfectious gastroenteritis (6 sources) Noninfectious enteritis; Translations: [Noninfective gastroenteritis and colitis, unspecified] Onset: 4 Episodic Occlusion or stenosis of precerebral arteries (6 sources) Carotid artery stenosis; Translations: [Occlusion and stenosis of unspecified carotid artery] Onset: 4 01-02-2024 Chronic Other aftercare (1 source) Long-term current use of aspirin; Translations: [senior care (current) use of aspirin] Episodic Other aftercare (1 source) Long-term current use of drug therapy; Translations: [Other watermaster (current) drug therapy] Episodic Other and ill-defined cerebrovascular disease (4 sources) Cerebral arterial aneurysm; Translations: [Cerebral aneurysm, nonruptured] Onset: 2 Chronic Other and ill-defined cerebrovascular disease (11 sources) Aneurysm of internal carotid artery 09-19-2020 Chronic Other circulatory disease (4 sources) History of transient ischemic attack; Translations: [Personal history of transient ischemic attack (TIA), and cerebral infarction without residual deficits] Onset: 2 Episodic Other circulatory disease (11 sources) History of cerebrovascular accident due to ischemia 03-11-2021 Episodic Other circulatory disease (2 sources) Low blood pressure; Translations: [Hypotension, unspecified] Onset: 4 01-13-2024 Episodic Other circulatory disease (1 source) Hypotension, unspecified; Translations: [Hypotension, unspecified] Onset: 4 Episodic Other connective tissue disease (1 source) Artificial knee joint present; Translations: [Presence of left artificial knee joint] Chronic Other connective tissue disease (7 sources) Recurrent falls ; Translations: [Repeated falls] Onset: 4 Episodic Other gastrointestinal disorders (2 sources) Incontinence of feces 11-14-2023 Episodic Other injuries and conditions due to external causes (1 source) History of fall; Translations: [History of falling] Episodic Other lower respiratory disease (1 source) Pleuritic pain; Translations: [Pleurodynia] Onset: 4 Episodic Other lower respiratory disease (3 sources) Rib pain 11-11-2023 Episodic Other nervous system disorders (2 sources) Dyslexia AND/OR speech dysfunction; Translations: [Dysarthria and anarthria] Onset: 2 Episodic Other nervous system disorders (11 sources) Dysarthria 07-19-2019 Episodic Other nervous system disorders (1 source) Incoordination; Translations: [Unspecified lack of coordination] Episodic Other nutritional; endocrine; and metabolic disorders (15 sources) Overweight; Translations: [Overweight] Onset: 2 Episodic Other nutritional; endocrine; and metabolic disorders (7 sources) Overweight in adulthood with body mass index of 25 or more but less than 30; Translations: [Body mass index (BMI) 27.0-27.9, adult] Onset: 2 Episodic Other nutritional; endocrine; and metabolic disorders (6 sources) Body mass index 25-29 - overweight 11-06-2021 Episodic Other nutritional; endocrine; and metabolic disorders (2 sources) Unintentional weight loss 11-14-2023 Episodic Residual codes; unclassified (2 sources) Peripheral edema 12-22-2023 Episodic Residual codes; unclassified (1 source) Pain, unspecified; Translations: [Pain, unspecified] Onset: 4 Episodic Residual codes; unclassified (2 sources) Other specified health status; Translations: [Other specified health status] Onset: 4 Episodic Residual codes; unclassified (2 sources) Other specified postprocedural states; Translations: [Other specified postprocedural states] Onset: 4 Episodic Thyroid disorders (2 sources) Other specified hypothyroidism; Translations: [Other specified hypothyroidism] Onset: 4 Chronic Unclassified (1 source) Dysarthria and anarthria / R47.1(ICD-10) Onset: 8 Unclassified (2 sources) 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 / I63.22(ICD-10) Onset: 8 Unclassified (1 source) Cerebral aneurysm, nonruptured / I67.1(ICD-10) Onset: 8 Unclassified (1 source) Athscl heart disease of barrow coronary artery w/o ang pctrs / I25.10(ICD-10) Onset: 8 Unclassified (1 source) Presence of left artificial knee joint / Z96.652(ICD-10) Onset: 8 Unclassified (1 source) Presence of aortocoronary bypass graft / Z95.1(ICD-10) Onset: 8 Unclassified (1 source) NIHSS score 1 / R29.701(ICD-10) Onset: 8 Unclassified (1 source) Presence of coronary angioplasty implant and graft / Z95.5(ICD-10) Onset: 8 Unclassified (2 sources) Body mass index 20-24 - normal 12-22-2023 Unclassified (2 sources) History of excision of intestinal structure 11-14-2023 Past or Other Problems Problem Classification Problem Date Documented Da te Episodic/Chronic Developmental disorders (11 sources) Expressive dysphasia Resolved: 05-10-2019 07-19-2019 Chronic Unclassified (1 source) 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; Translations: [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] Onset: 01-06-2018 Results Test Name Value Interpretation Reference Range Facility Office Visiton 03-04-2024 Follow-up visit [id number] Patrick Barrientos 1945 F Date Provider Department Center 03/04/2024 [id number] RHODES CARD [facility] No family history on file Level of Service:01663 [place] OFFICE/OUTPATIENT NEW MODERATE MDM 45 MINUTES Normal [facility] Prealbuminon 02-08-2024 Prealbumin [Mass/Vol] 20.6 mg/dL [facility]40.0 [facility] Comment on above: Performed By: #### C BCWD #### [facility] [address] [place] [id number] Culture, Urineon 02-07-2024 Culture, Urine ORDER#: [id number] OR DERED BY: BELEN HAQUE SOURCE: Urine Clean Catch Urine COLLECTED: 02/07/24 16:00 ANTIBIOTICS AT EARNESTINE.: RECEIVED : 02/07/24 16:00 Culture, Urine FINAL 02/09/24 11:04 Cult,Urine: NO SIGNIFICANT GROWTH Performed at [facility] [employer] [address] [place] [id number] Normal [facility] Comment on above: Performed By: #### C BCWD #### [facility] [address] [place] [id number] Urinalysis, reflex to micros copicon 02-07-2024 Bilirubin Ql (U) Negative Normal Negative [facility] Comment on above: Performed By: #### C BCWD #### [facility] [address] [place] [address] Clarity (U) Clear Normal Clear [facility] Comment on above: Performed By: #### C BCWD #### [facility] [address] [place] [address] Color (U) Yellow Normal Straw/Wheeler [facility] Comment on above: Performed By: #### C BCWD #### [facility] [address] [place] [address] Glucose Ql (U) Negative Normal Negative [facility] Comment on above: Performed By: #### C BCWD #### [facility] [address] [place] [address] Hemoglobin Ql (U) Negative Normal Negative [facility] Comment on above: Performed By: #### C BCWD #### [facility] [address] [place] [address] Ketones Ql (U) Negative Normal Negative [facility] Comment on above: Performed By: #### C BCWD #### [facility] [address] [place] [address] Leukocyte esterase Test strip Ql (U) SMALL Abnormal Negative [facility] Comment on above: Performed By: #### C BCWD #### [facility] [address] [place] [address] Nitrite Ql (U) Negative Normal Negative [facility] Comment on above: Performed By: #### C BCWD #### [facility] [address] [place] [address] pH (U) 5.0 [pH] Normal 5.0-9.0 [facility] Comment on above: Performed By: #### C BCWD #### [facility] [address] [place] [address] Protein Ql (U) Negative Normal Negative [facility] Comment on above: Performed By: #### C BCWD #### [facility] [address] [place] [address] Specific gravity (U) [Rel density] 1.020 Normal 1.005-1.03 [facility] Comment on above: Performed By: #### C BCWD #### [facility] [address] [place] [address] Urobilinogen Qn (U) 0.2 {Chan'U}/dL Normal < 2.0 [facility] Comment on above: Performed By: #### C BCWD #### [facility] [address] [place] [address] Urine Microscopicon 02-07-20 24 Urine Bacteria RARE Abnormal Negative [facility] Comment on above: Performed By: #### U YOUSIF #### [facility] [address] [place] [address] Urine Epithelial Cells Auto 0-2 Normal 0-5 [facility] Comment on above: Performed By: #### U YOUSIF #### [facility] [address] [place] [address] Urine Hyaline Casts Auto 1-3 Normal 0-5 [facility] Comment on above: Performed By: #### U YOUSIF #### [facility] [address] [place] [address] Urine RBC Auto 0-2 Normal 0-5 [facility] Comment on above: Performed By: #### U YOUSIF #### [facility] [address] [place] [address] Urine WBC Auto 20-50 Abnormal 0-5 [facility] Comment on above: Performed By: #### U YOUSIF #### [facility] [address] [place] [address] XR ABDOMEN (KUB) (SINGLE AP VIEW)on 02-07-2024 XR ABDOMEN (KUB) (SINGLE AP VIEW) EXAMINATION: ONE SUPINE XRAY VIEW(S) OF THE ABDOMEN 02/07/2024 11:29 am COMPARISON: None. HISTORY: ORDERING SYSTEM PROVIDED HISTORY: poor appetite TECHNOLOGIST PROVIDED HISTORY: Reason for exam:->poor appetite What reading provider will be dictating this exam?->CRC FINDINGS: Nonspecific bowel gas pattern without evidence of obstruction. No abnormal calcifications. No acute osseous abnormality. Colonic fecal retention involving the sigmoid colon. IMPRESSION: No evidence of bowel obstruction. Colonic fecal retention involving the sigmoid colon. Interpreted by: Donny Valadez MD Signed by: Donny Valadez MD 02/07/24 Final result Normal [facility] Basic Metabolic Panelon 04-1 Anion gap [Moles/Vol] 9 mmol/L Normal 9-15 [facility] Comment on above: Performed By: #### B MP #### [facility] [address] [place] [address] Calcium [Mass/Vol] 9.2 mg/dL Normal 8.5-9.9 [facility] Comment on above: Performed By: #### B MP #### [facility] [address] [place] [address] Chloride [Moles/Vol] 113 mmol/L Critically high 95-107 [facility] Comment on above: Performed By: #### B MP #### [facility] [address] [place] [address] CO2 [Moles/Vol] 17 mmol/L Low 20-31 [facility] Comment on above: Performed By: #### B MP #### [facility] [address] [place] [address] Creatinine [Mass/Vol] 1.03 mg/dL Critically high 0.50-0.90 [facility] Comment on above: Performed By: #### B MP #### [facility] [address] [place] [address] GFR 55.0 Low >60 [facility] Comment on above: Result Comment: Lesley atric calculator link https://www.kidney.org/professionals/kdoqi/gfr_calculatorped Effective Jul 29, 2022 These results are not intended for use in patients <18 years of age. eGFR results are calculated without a race factor using the 2020 CKD-EPI equation. Careful clinical correlation is recommended, particularly when comparing to results calculated using previous equations. The CKD-EPI equation is less accurate in patients with extremes of muscle mass, extra-renal metabolism of creatinine, excessive creatinine ingestion, or following therapy that affects renal tubular secretion. Performed By: #### B MP #### [facility] [address] [place] [address] Glucose [Mass/Vol] 77 mg/dL Normal 70-99 [facility] Comment on above: Performed By: #### B MP #### [facility] [address] [place] [address] Potassium [Moles/Vol] 4.8 mmol/L Normal 3.4-4.9 [facility] Comment on above: Performed By: #### B MP #### [facility] [address] [place] [address] Sodium [Moles/Vol] 139 mmol/L Normal 135-144 [facility] Comment on above: Performed By: #### B MP #### [facility] [address] [place] [address] Urea nitrogen [Mass/Vol] 35 mg/dL Critically high 8-23 [facility] Comment on above: Performed By: #### B MP #### [facility] [address] [place] [address] Basic Metabolic Panelon 04-1 0-2023 Anion gap [Moles/Vol] 11 mmol/L Normal 9-15 [facility] Comment on above: Performed By: #### B MP #### [facility] [address] [place] [address] Calcium [Mass/Vol] 9.7 mg/dL Normal 8.5-9.9 [facility] Comment on above: Performed By: #### B MP #### [facility] [address] [place] [address] Chloride [Moles/Vol] 110 mmol/L Critically high 95-107 [facility] Comment on above: Performed By: #### B MP #### [facility] [address] [place] [address] CO2 [Moles/Vol] 18 mmol/L Low 20-31 [facility] Comment on above: Performed By: #### B MP #### [facility] [address] [place] [address] Creatinine [Mass/Vol] 1.17 mg/dL Critically high 0.50-0.90 [facility] Comment on above: Performed By: #### B MP #### [facility] [address] [place] [address] GFR 47.2 Low >60 [facility] Comment on above: Result Comment: Pedi atric calculator link https://www.kidney.org/professionals/kdoqi/gfr_calculatorped Effective Jul 29, 2022 These results are not intended for use in patients <18 years of age. eGFR results are calculated without a race factor using the 2020 CKD-EPI equation. Careful clinical correlation is recommended, particularly when comparing to results calculated using previous equations. The CKD-EPI equation is less accurate in patients with extremes of muscle mass, extra-renal metabolism of creatinine, excessive creatinine ingestion, or following therapy that affects renal tubular secretion. Performed By: #### B MP #### [facility] [address] [place] [address] Glucose [Mass/Vol] 85 mg/dL Normal 70-99 [facility] Comment on above: Performed By: #### B MP #### [facility] [address] [place] [address] Potassium [Moles/Vol] 4.5 mmol/L Normal 3.4-4.9 [facility] Comment on above: Performed By: #### B MP #### [facility] [address] [place] [address] Sodium [Moles/Vol] 139 mmol/L Normal 135-144 [facility] Comment on above: Performed By: #### B MP #### [facility] [address] [place] [address] Urea nitrogen [Mass/Vol] 39 mg/dL Critically high 8-23 [facility] Comment on above: Performed By: #### B MP #### [facility] [address] [place] [address] Basic Metabolic Panelon 04-0 -2023 Anion gap [Moles/Vol] 8 mmol/L Low 9-15 [facility] Comment on above: Performed By: #### B MP #### [facility] [address] [place] [address] Calcium [Mass/Vol] 10.0 mg/dL Critically high 8.5-9.9 [facility] Comment on above: Performed By: #### B MP #### [facility] [address] [place] [address] Chloride [Moles/Vol] 111 mmol/L Critically high 95-107 [facility] Comment on above: Performed By: #### B MP #### [facility] [address] [place] [address] CO2 [Moles/Vol] 18 mmol/L Low 20-31 [facility] Comment on above: Performed By: #### B MP #### [facility] [address] [place] [address] Creatinine [Mass/Vol] 1.14 mg/dL Critically high 0.50-0.90 [facility] Comment on above: Performed By: #### B MP #### [facility] [address] [place] [address] GFR 48.7 Low >60 [facility] Comment on above: Result Comment: Pedi atric calculator link https://www.kidney.org/professionals/kdoqi/gfr_calculatorped Effective Jul 29, 2022 These results are not intended for use in patients <18 years of age. eGFR results are calculated without a race factor using the 2020 CKD-EPI equation. Careful clinical correlation is recommended, particularly when comparing to results calculated using previous equations. The CKD-EPI equation is less accurate in patients with extremes of muscle mass, extra-renal metabolism of creatinine, excessive creatinine ingestion, or following therapy that affects renal tubular secretion. Performed By: #### B MP #### [facility] [address] [place] [address] Glucose [Mass/Vol] 84 mg/dL Normal 70-99 [facility] Comment on above: Performed By: #### B MP #### [facility] [address] [place] [address] Potassium [Moles/Vol] 5.1 mmol/L Critically high 3.4-4.9 [facility] Comment on above: Performed By: #### B MP #### [facility] [address] [place] [address] Sodium [Moles/Vol] 137 mmol/L Normal 135-144 [facility] Comment on above: Performed By: #### B MP #### [facility] [address] [place] [address] Urea nitrogen [Mass/Vol] 38 mg/dL Critically high 8-23 [facility] Comment on above: Performed By: #### B MP #### [facility] [address] [place] [address] CBC With Platelet and Differ entialon 02-03-2024 Basophils (Bld) [#/Vol] 0.0 10*3/uL Normal 0.0-0.2 [facility] Comment on above: Performed By: #### C BCWD #### [facility] [address] [place] [address] Basophils/100 WBC (Bld) 0.4 % Normal [facility] Comment on above: Performed By: #### C BCWD #### [facility] [address] [place] [address] Eosinophils (Bld) [#/Vol] 0.2 10*3/uL Normal 0.0-0.7 [facility] Comment on above: Performed By: #### C BCWD #### [facility] [address] [place] [address] Eosinophils/100 WBC (Bld) 4.0 % Normal [facility] Comment on above: Performed By: #### C BCWD #### [facility] [address] [place] [address] Erythrocyte distribution width (RBC) [Ratio] 18.2 % Critically high 11.5-14.5 [facility] Comment on above: Performed By: #### C BCWD #### [facility] [address] [place] [address] Hematocrit (Bld) [Volume fraction] 36.7 % Low 37.0-47.0 [facility] Comment on above: Performed By: #### C BCWD #### [facility] [address] [place] [address] Hemoglobin (Bld) [Mass/Vol] 11.3 g/dL Low 12.0-16.0 [facility] Comment on above: Performed By: #### C BCWD #### [facility] [address] [place] [address] Lymphocytes (Bld) [#/Vol] 1.3 10*3/uL Normal 1.0-4.8 [facility] Comment on above: Performed By: #### C BCWD #### [facility] [address] [place] [address] Lymphocytes/100 WBC (Bld) 24.8 % Normal [facility] Comment on above: Performed By: #### C BCWD #### [facility] [address] [place] [address] MCH (RBC) [Entitic mass] 29.0 pg Normal 27.0-31.3 [facility] Comment on above: Performed By: #### C BCWD #### [facility] [address] [place] [address] MCHC 30.8 % Low 33.0-37.0 [facility] Comment on above: Performed By: #### C BCWD #### [facility] [address] [place] [address] MCV (RBC) [Entitic vol] 94.3 fL Normal 79.4-94.8 [facility] Comment on above: Performed By: #### C BCWD #### [facility] [address] [place] [address] Monocytes (Bld) [#/Vol] 0.4 10*3/uL Normal 0.2-0.8 [facility] Comment on above: Performed By: #### C BCWD #### [facility] [address] [place] [address] Monocytes/100 WBC (Bld) 8.0 % Normal [facility] Comment on above: Performed By: #### C BCWD #### [facility] [address] [place] [address] Neutrophils (Bld) [#/Vol] 3.3 10*3/uL Normal 1.4-6.5 [facility] Comment on above: Performed By: #### C BCWD #### [facility] [address] [place] [address] Neutrophils/100 WBC (Bld) 62.4 % Normal [facility] Comment on above: Performed By: #### C BCWD #### [facility] [address] [place] [address] Platelets (Bld) [#/Vol] 220 10*3/uL Normal 130-400 [facility] Comment on above: Performed By: #### C BCWD #### [facility] [address] [place] [address] RBC (Bld) [#/Vol] 3.89 10*6/uL Low 4.20-5.40 [facility] Comment on above: Performed By: #### C BCWD #### [facility] [address] [place] [address] WBC (Bld) [#/Vol] 5.2 10*3/uL Normal 4.8-10.8 [facility] Comment on above: Performed By: #### C BCWD #### [facility] [address] [place] [address] Culture, Urineon 02-02-2024 Culture, Urine ORDER#: [id number] OR DERED BY: BELEN HAQUE SOURCE: Urine Clean Catch Urine COLLECTED: 02/02/24 06:50 ANTIBIOTICS AT EARNESTINE.: RECEIVED : 02/03/24 06:38 Culture, Urine FINAL 02/04/24 10:13 Cult,Urine: NO SIGNIFICANT GROWTH Performed at [address] [address] Normal [facility] Comment on above: Performed By: #### C BCWD #### [facility] [address] [place] [address] Urinalysis, reflex to micros copicon 02-02-2024 Bilirubin Ql (U) Negative Normal Negative [facility] Comment on above: Performed By: #### B MP #### [facility] [address] [place] [address] Clarity (U) Clear Normal Clear [facility] Comment on above: Performed By: #### B MP #### [facility] [address] [place] [address] Color (U) Yellow Normal Straw/Wheeler [facility] Comment on above: Performed By: #### B MP #### [facility] [address] [place] [address] Glucose Ql (U) Negative Normal Negative [facility] Comment on above: Performed By: #### B MP #### [facility] [address] [place] [address] Hemoglobin Ql (U) Negative Normal Negative [facility] Comment on above: Performed By: #### B MP #### [facility] [address] [place] [address] Ketones Ql (U) Negative Normal Negative [facility] Comment on above: Performed By: #### B MP #### [facility] [address] [place] [address] Leukocyte esterase Test strip Ql (U) Negative Normal Negative [facility] Comment on above: Performed By: #### B MP #### [facility] [address] [place] [address] Nitrite Ql (U) Negative Normal Negative [facility] Comment on above: Performed By: #### B MP #### [facility] [address] [place] [address] pH (U) 5.0 [pH] Normal 5.0-9.0 [facility] Comment on above: Performed By: #### B MP #### [facility] [address] [place] [address] Protein Ql (U) Negative Normal Negative [facility] Comment on above: Performed By: #### B MP #### [facility] [address] [place] [address] Specific gravity (U) [Rel density] 1.026 Normal 1.005-1.03 [facility] Comment on above: Performed By: #### B MP #### [facility] [address] [place] [address] Urobilinogen Qn (U) 0.2 {Chan'U}/dL Normal < 2.0 [facility] Comment on above: Performed By: #### B MP #### [facility] [address] [place] [address] Thyroid Peroxidase(TPO) Abon 01-27-2024 Thyroid Peroxidase(TPO) Ab <4.0 Normal 0.0-25.0 [facility] Comment on above: Result Comment: Reference Range: <25.0 Negative 25.0-35.0 Equivocal >35.0 Positive When results are Equivocal, it is recommended to retest after 8-12 weeks. Performed at [facility], [address] [place] [id number] . Thyroxine Freeon 01-26-2024 Thyroxine Free 0.83 ng/dL Low 0.84-1.68 [facility] Comment on above: Performed By: #### F RT4 #### [facility] [address] [place] [address] Basic Metabolic Panelon 03-3 Anion gap [Moles/Vol] 9 mmol/L Normal 9-15 [facility] Comment on above: Performed By: #### B MP #### [facility] [address] [place] [address] Calcium [Mass/Vol] 9.6 mg/dL Normal 8.5-9.9 [facility] Comment on above: Performed By: #### B MP #### [facility] [address] [place] [address] Chloride [Moles/Vol] 107 mmol/L Normal 95-107 [facility] Comment on above: Performed By: #### B MP #### [facility] [address] [place] [address] CO2 [Moles/Vol] 23 mmol/L Normal 20-31 [facility] Comment on above: Performed By: #### B MP #### [facility] [address] [place] [address] Creatinine [Mass/Vol] 1.22 mg/dL Critically high 0.50-0.90 [facility] Comment on above: Performed By: #### B MP #### [facility] [address] [place] [address] GFR 44.9 Low >60 [facility] Comment on above: Result Comment: Pedi atric calculator link https://www.kidney.org/professionals/kdoqi/gfr_calculatorped Effective Jul 29, 2022 These results are not intended for use in patients <18 years of age. eGFR results are calculated without a race factor using the 2020 CKD-EPI equation. Careful clinical correlation is recommended, particularly when comparing to results calculated using previous equations. The CKD-EPI equation is less accurate in patients with extremes of muscle mass, extra-renal metabolism of creatinine, excessive creatinine ingestion, or following therapy that affects renal tubular secretion. Performed By: #### B MP #### [facility] [address] [place] [address] Glucose [Mass/Vol] 107 mg/dL Critically high 70-99 [facility] Comment on above: Performed By: #### B MP #### [facility] [address] [place] [address] Potassium [Moles/Vol] 4.9 mmol/L Normal 3.4-4.9 [facility] Comment on above: Performed By: #### B MP #### [facility] [address] [place] [address] Sodium [Moles/Vol] 139 mmol/L Normal 135-144 [facility] Comment on above: Performed By: #### B MP #### [facility] [address] [place] [address] Urea nitrogen [Mass/Vol] 19 mg/dL Normal 8-23 [facility] Comment on above: Performed By: #### B MP #### [facility] [address] [place] [address] Basic Metabolic Panelon 03-3 0-2023 Anion gap [Moles/Vol] 10 mmol/L Normal 9-15 [facility] Comment on above: Performed By: #### B MP #### [facility] [address] [place] [address] Calcium [Mass/Vol] 9.7 mg/dL Normal 8.5-9.9 [facility] Comment on above: Performed By: #### B MP #### [facility] [address] [place] [address] Chloride [Moles/Vol] 107 mmol/L Normal 95-107 [facility] Comment on above: Performed By: #### B MP #### [facility] [address] [place] [address] CO2 [Moles/Vol] 23 mmol/L Normal 20-31 [facility] Comment on above: Performed By: #### B MP #### [facility] [address] [place] [address] Creatinine [Mass/Vol] 1.22 mg/dL Critically high 0.50-0.90 [facility] Comment on above: Performed By: #### B MP #### [facility] [address] [place] [address] GFR 44.9 Low >60 [facility] Comment on above: Result Comment: Lesley orellanac calculator link https://www.kidney.org/professionals/kdoqi/gfr_calculatorped Effective Jul 29, 2022 These results are not intended for use in patients <18 years of age. eGFR results are calculated without a race factor using the 2020 CKD-EPI equation. Careful clinical correlation is recommended, particularly when comparing to results calculated using previous equations. The CKD-EPI equation is less accurate in patients with extremes of muscle mass, extra-renal metabolism of creatinine, excessive creatinine ingestion, or following therapy that affects renal tubular secretion. Performed By: #### B MP #### [facility] [address] [place] [address] Glucose [Mass/Vol] 81 mg/dL Normal 70-99 [facility] Comment on above: Performed By: #### B MP #### [facility] [address] [place] [address] Potassium [Moles/Vol] 5.1 mmol/L Critically high 3.4-4.9 [facility] Comment on above: Performed By: #### B MP #### [facility] [address] [place] [address] Sodium [Moles/Vol] 140 mmol/L Normal 135-144 [facility] Comment on above: Performed By: #### B MP #### [facility] [address] [place] [address] Urea nitrogen [Mass/Vol] 17 mg/dL Normal 8-23 [facility] Comment on above: Performed By: #### B MP #### [facility] [address] [place] [address] CBC With Platelet and Differ entialon 01-24-2024 Basophils (Bld) [#/Vol] 0.0 10*3/uL Normal 0.0-0.2 [facility] Comment on above: Performed By: #### C BCWD #### [facility] [address] [place] [address] Basophils/100 WBC (Bld) 0.4 % Normal [facility] Comment on above: Performed By: #### C BCWD #### [facility] [address] [place] [address] Eosinophils (Bld) [#/Vol] 0.2 10*3/uL Normal 0.0-0.7 [facility] Comment on above: Performed By: #### C BCWD #### [facility] [address] [place] [address] Eosinophils/100 WBC (Bld) 2.6 % Normal [facility] Comment on above: Performed By: #### C BCWD #### [facility] [address] [place] [address] Erythrocyte distribution width (RBC) [Ratio] 18.8 % Critically high 11.5-14.5 [facility] Comment on above: Performed By: #### C BCWD #### [facility] [address] [place] [address] Hematocrit (Bld) [Volume fraction] 39.1 % Normal 37.0-47.0 [facility] Comment on above: Performed By: #### C BCWD #### [facility] [address] [place] [address] Hemoglobin (Bld) [Mass/Vol] 11.8 g/dL Low 12.0-16.0 [facility] Comment on above: Performed By: #### C BCWD #### [facility] [address] [place] [address] Lymphocytes (Bld) [#/Vol] 1.0 10*3/uL Normal 1.0-4.8 [facility] Comment on above: Performed By: #### C BCWD #### [facility] [address] [place] [address] Lymphocytes/100 WBC (Bld) 14.0 % Normal [facility] Comment on above: Performed By: #### C BCWD #### [facility] [address] [place] [address] MCH (RBC) [Entitic mass] 28.2 pg Normal 27.0-31.3 [facility] Comment on above: Performed By: #### C BCWD #### [facility] [address] [place] [address] MCHC 30.2 % Low 33.0-37.0 [facility] Comment on above: Performed By: #### C BCWD #### [facility] [address] [place] [address] MCV (RBC) [Entitic vol] 93.5 fL Normal 79.4-94.8 [facility] Comment on above: Performed By: #### C BCWD #### [facility] [address] [place] [address] Monocytes (Bld) [#/Vol] 0.6 10*3/uL Normal 0.2-0.8 [facility] Comment on above: Performed By: #### C BCWD #### [facility] [address] [place] [address] Monocytes/100 WBC (Bld) 7.9 % Normal [facility] Comment on above: Performed By: #### C BCWD #### [facility] [address] [place] [address] Neutrophils (Bld) [#/Vol] 5.4 10*3/uL Normal 1.4-6.5 [facility] Comment on above: Performed By: #### C BCWD #### [facility] [address] [place] [address] Neutrophils/100 WBC (Bld) 74.7 % Normal [facility] Comment on above: Performed By: #### C BCWD #### [facility] [address] [place] [address] Platelets (Bld) [#/Vol] 322 10*3/uL Normal 130-400 [facility] Comment on above: Performed By: #### C BCWD #### [facility] [address] [place] [address] RBC (Bld) [#/Vol] 4.18 10*6/uL Low 4.20-5.40 [facility] Comment on above: Performed By: #### C BCWD #### [facility] [address] [place] [address] WBC (Bld) [#/Vol] 7.2 10*3/uL Normal 4.8-10.8 [facility] Comment on above: Performed By: #### C BCWD #### [facility] [address] [place] [address] TSH w/out Reflexon TSH w/out Reflex 45.450 uIU/mL Critically high 0.440-3.86 [facility] Comment on above: Performed By: #### T SH #### [facility] [address] [place] [address] Basic Metabolic Panelon 12-26 Anion gap [Moles/Vol] 9 mmol/L Normal 9-15 [facility] Comment on above: Order Comment: Erin wills has been rescheduled by [facility]ON[facility] at 01/21/2024 08:53 Reason: Pt care Collection has been rescheduled by [facility]ON[facility] at 01/21/2024 09:12 Reason: Patient not in room Performed By: #### B MP #### [facility] [address] [place] [address] Calcium [Mass/Vol] 9.9 mg/dL Normal 8.5-9.9 [facility] Comment on above: Order Comment: Erin ction has been rescheduled by GONMI at 01/21/2024 08:53 Reason: Pt care Collection has been rescheduled by [facility] at 01/21/2024 09:12 Reason: Patient not in room Performed By: #### B MP #### [facility] [address] [place] [address] Chloride [Moles/Vol] 102 mmol/L Normal 95-107 [facility] Comment on above: Order Comment: Erin wills has been rescheduled by GONMI at 01/21/2024 08:53 Reason: Pt care Collection has been rescheduled by [facility]ON[facility] at 01/21/2024 09:12 Reason: Patient not in room Performed By: #### B MP #### [facility] [address] [place] [address] CO2 [Moles/Vol] 24 mmol/L Normal 20-31 [facility] Comment on above: Order Comment: Erin wills has been rescheduled by [facility]ONMI at 01/21/2024 08:53 Reason: Pt care Collection has been rescheduled by [facility]ON[facility] at 01/21/2024 09:12 Reason: Patient not in room Performed By: #### B MP #### [facility] [address] [facility] [address] Creatinine [Mass/Vol] 0.85 mg/dL Normal 0.50-0.90 [facility] Comment on above: Order Comment: Erin wills has been rescheduled by GONMI at 01/21/2024 08:53 Reason: Pt care Collection has been rescheduled by [facility] at 01/21/2024 09:12 Reason: Patient not in room Performed By: #### B MP #### [facility] [address] [facility] [address] GFR 69.3 Normal >60 [facility] Comment on above: Order Comment: Erin wills has been rescheduled by [facility]ONMI at 01/21/2024 08:53 Reason: Pt care Collection has been rescheduled by [facility] at 01/21/2024 09:12 Reason: Patient not in room Result Comment: Lesley atric calculator link https://www.kidney.org/professionals/kdoqi/gfr_calculatorped Effective Jul 29, 2022 These results are not intended for use in patients <18 years of age. eGFR results are calculated without a race factor using the 2020 CKD-EPI equation. Careful clinical correlation is recommended, particularly when comparing to results calculated using previous equations. The CKD-EPI equation is less accurate in patients with extremes of muscle mass, extra-renal metabolism of creatinine, excessive creatinine ingestion, or following therapy that affects renal tubular secretion. Performed By: #### B MP #### [facility] [address] [place] [address] Glucose [Mass/Vol] 93 mg/dL Normal 70-99 [facility] Comment on above: Order Comment: Erin wills has been rescheduled by [facility]ONMI at 01/21/2024 08:53 Reason: Pt care Collection has been rescheduled by [facility] at 01/21/2024 09:12 Reason: Patient not in room Performed By: #### B MP #### [facility] [address] [place] [address] Potassium [Moles/Vol] 4.6 mmol/L Normal 3.4-4.9 [facility] Comment on above: Order Comment: Erin wills has been rescheduled by [facility]ON[facility] at 01/21/2024 08:53 Reason: Pt care Collection has been rescheduled by [facility] at 01/21/2024 09:12 Reason: Patient not in room Performed By: #### B MP #### [facility] [address] [place] [address] Sodium [Moles/Vol] 135 mmol/L Normal 135-144 [facility] Comment on above: Order Comment: Erin wills has been rescheduled by [facility]ONMI at 01/21/2024 08:53 Reason: Pt care Collection has been rescheduled by [facility] at 01/21/2024 09:12 Reason: Patient not in room Performed By: #### B MP #### [facility] [address] [place] [address] Urea nitrogen [Mass/Vol] 14 mg/dL Normal 8-23 [facility] Comment on above: Order Comment: Erin wills has been rescheduled by GONMI at 01/21/2024 08:53 Reason: Pt care Collection has been rescheduled by [facility] at 01/21/2024 09:12 Reason: Patient not in room Performed By: #### B MP #### [facility] [address] [place] [address] CBC With Platelet and Differ entialon 01-21-2024 Basophils (Bld) [#/Vol] 0.0 10*3/uL Normal 0.0-0.2 [facility] Comment on above: Order Comment: Erin wills has been rescheduled by [facility] at 01/21/2024 08:53 Reason: PtcareCollection has been rescheduled by [facility]ONMI at 01/21/2024 09:12 Reason:Patient not in room Performed By: #### C BCWD #### [facility] [address] [place] [address] Basophils/100 WBC (Bld) 0.4 % Normal [facility] Comment on above: Order Comment: Erin wills has been rescheduled by [facility]ONMI at 01/21/2024 08:53 Reason: PtcareCollection has been rescheduled by [facility]ON[facility] at 01/21/2024 09:12 Reason:Patient not in room Performed By: #### C BCWD #### [facility] [facility] [address] [facility] [place] [address] Eosinophils (Bld) [#/Vol] 0.3 10*3/uL Normal 0.0-0.7 [facility] Comment on above: Order Comment: Erin wills has been rescheduled by GONMI at 01/21/2024 08:53 Reason: PtcareCollection has been rescheduled by GONMI at 01/21/2024 09:12 Reason:Patient not in room Performed By: #### C BCWD #### [facility] [address] [place] [address] Eosinophils/100 WBC (Bld) 3.1 % Normal [facility] Comment on above: Order Comment: Erin wills has been rescheduled by GONMI at 01/21/2024 08:53 Reason: PtcareCollection has been rescheduled by GONMI at 01/21/2024 09:12 Reason:Patient not in room Performed By: #### C BCWD #### [facility] [address] [place] [address] Erythrocyte distribution width (RBC) [Ratio] 18.7 % Critically high 11.5-14.5 [facility] Comment on above: Order Comment: Erin ction has been rescheduled by GONMI at 01/21/2024 08:53 Reason: PtcareCollection has been rescheduled by GONMI at 01/21/2024 09:12 Reason:Patient not in room Performed By: #### C BCWD #### [facility] [address] [place] [address] Hematocrit (Bld) [Volume fraction] 39.9 % Normal 37.0-47.0 [facility] Comment on above: Order Comment: Erin ction has been rescheduled by GONMI at 01/21/2024 08:53 Reason: PtcareCollection has been rescheduled by GONMI at 01/21/2024 09:12 Reason:Patient not in room Performed By: #### C BCWD #### [facility] [address] [facility] [address] Hemoglobin (Bld) [Mass/Vol] 12.5 g/dL Normal 12.0-16.0 [facility] Comment on above: Order Comment: Erin wills has been rescheduled by GONMI at 01/21/2024 08:53 Reason: PtcareCollection has been rescheduled by GONMI at 01/21/2024 09:12 Reason:Patient not in room Performed By: #### C BCWD #### [facility] [address] [place] [address] Lymphocytes (Bld) [#/Vol] 1.1 10*3/uL Normal 1.0-4.8 [facility] Comment on above: Order Comment: Erin wills has been rescheduled by GONMI at 01/21/2024 08:53 Reason: PtcareCollection has been rescheduled by GONMI at 01/21/2024 09:12 Reason:Patient not in room Performed By: #### C BCWD #### [facility] [address] [place] [address] Lymphocytes/100 WBC (Bld) 12.7 % Normal [facility] Comment on above: Order Comment: Erin ction has been rescheduled by GONMI at 01/21/2024 08:53 Reason: PtcareCollection has been rescheduled by GONMI at 01/21/2024 09:12 Reason:Patient not in room Performed By: #### C BCWD #### [facility] [address] [place] [address] MCH (RBC) [Entitic mass] 28.5 pg Normal 27.0-31.3 [facility] Comment on above: Order Comment: Erin ction has been rescheduled by GONMI at 01/21/2024 08:53 Reason: PtcareCollection has been rescheduled by GONMI at 01/21/2024 09:12 Reason:Patient not in room Performed By: #### C BCWD #### [facility] [address] [place] [address] MCHC 31.3 % Low 33.0-37.0 [facility] Comment on above: Order Comment: Erin ction has been rescheduled by GONMI at 01/21/2024 08:53 Reason: PtcareCollection has been rescheduled by GONMI at 01/21/2024 09:12 Reason:Patient not in room Performed By: #### C BCWD #### [facility] [address] [facility] [place] [address] MCV (RBC) [Entitic vol] 91.1 fL Normal 79.4-94.8 [facility] Comment on above: Order Comment: Erin ction has been rescheduled by GONMI at 01/21/2024 08:53 Reason: PtcareCollection has been rescheduled by GONMI at 01/21/2024 09:12 Reason:Patient not in room Performed By: #### C BCWD #### [facility] [address] [facility] [place] [address] Monocytes (Bld) [#/Vol] 0.6 10*3/uL Normal 0.2-0.8 [facility] Comment on above: Order Comment: Erin ction has been rescheduled by GONMI at 01/21/2024 08:53 Reason: PtcareCollection has been rescheduled by GONMI at 01/21/2024 09:12 Reason:Patient not in room Performed By: #### C BCWD #### [facility] [address] [place] [address] Monocytes/100 WBC (Bld) 7.7 % Normal [facility] Comment on above: Order Comment: Erin ction has been rescheduled by GONMI at 01/21/2024 08:53 Reason: PtcareCollection has been rescheduled by GONMI at 01/21/2024 09:12 Reason:Patient not in room Performed By: #### C BCWD #### [facility] [address] [facility] [place] [address] Neutrophils (Bld) [#/Vol] 6.2 10*3/uL Normal 1.4-6.5 [facility] Comment on above: Order Comment: Erin ction has been rescheduled by GONMI at 01/21/2024 08:53 Reason: PtcareCollection has been rescheduled by GONMI at 01/21/2024 09:12 Reason:Patient not in room Performed By: #### C BCWD #### [facility] [address] [place] [address] Neutrophils/100 WBC (Bld) 75.3 % Normal [facility] Comment on above: Order Comment: Erin ction has been rescheduled by GONMI at 01/21/2024 08:53 Reason: PtcareCollection has been rescheduled by GONMI at 01/21/2024 09:12 Reason:Patient not in room Performed By: #### C BCWD #### [facility] [address] [place] [address] Platelets (Bld) [#/Vol] 359 10*3/uL Normal 130-400 [facility] Comment on above: Order Comment: Erin ction has been rescheduled by GONMI at 01/21/2024 08:53 Reason: PtcareCollection has been rescheduled by GONMI at 01/21/2024 09:12 Reason:Patient not in room Performed By: #### C BCWD #### [facility] [address] [place] [address] RBC (Bld) [#/Vol] 4.38 10*6/uL Normal 4.20-5.40 [facility] Comment on above: Order Comment: Colle ction has been rescheduled by GONMI at 01/21/2024 08:53 Reason: PtcareCollection has been rescheduled by GONMI at 01/21/2024 09:12 Reason:Patient not in room Performed By: #### C BCWD #### [facility] [address] [place] [address] WBC (Bld) [#/Vol] 8.3 10*3/uL Normal 4.8-10.8 [facility] Comment on above: Order Comment: Colle ction has been rescheduled by GONMI at 01/21/2024 08:53 Reason: PtcareCollection has been rescheduled by GONMI at 01/21/2024 09:12 Reason:Patient not in room Performed By: #### C BCWD #### [facility] [address] [place] [address] FL MODIFIED BARIUM SWALLOW W VIDEOon 01-21-2024 FL MODIFIED BARIUM SWALLOW W VIDEO EXAMINATION: MODIFIED BARIUM SWALLOW WAS PERFORMED IN CONJUNCTION WITH SPEECH PATHOLOGY SERVICES TECHNIQUE: Under fluoroscopic evaluation cineradiography/videoradiog chata recordings were performed in conjunction with the speech-language pathologist (PRODUCTION CLERK). Various liquid, solid and/or semi-solid barium preparations were used to assess swallowing function. FLUOROSCOPY DOSE AND TYPE: Radiation Exposure Index: Entrance dose Kerma mGy, 2.70, DAP 220.03 micro meredith per meter squared COMPARISON: None HISTORY: ORDERING SYSTEM PROVIDED HISTORY: Goal to upgrade diet TECHNOLOGIST PROVIDED HISTORY: Reason for exam:->Goal to upgrade diet What reading provider will be dictating this exam?->CRC FINDINGS: Fluoroscopic assistance was provided during modified barium swallowing study. IMPRESSION: Please see separate speech pathology report for full discussion of findings and recommendations. Interpreted by: Butch Edmonds MD Signed by: Butch Edmonds MD 01/22/24 Final result Normal [facility] Urinalysis, reflex to micros copicon 01-21-2024 Bilirubin Ql (U) Negative Normal Negative [facility] Comment on above: Performed By: #### C BCWD #### [facility] [address] [place] [address] Clarity (U) Clear Normal Clear [facility] Comment on above: Performed By: #### C BCWD #### [facility] [address] [place] [address] Color (U) Yellow Normal Straw/Wheeler [facility] Comment on above: Performed By: #### C BCWD #### [facility] [address] [place] [address] Glucose Ql (U) Negative Normal Negative [facility] Comment on above: Performed By: #### C BCWD #### [facility] [address] [place] [address] Hemoglobin Ql (U) TRACE Abnormal Negative [facility] Comment on above: Performed By: #### C BCWD #### [facility] [address] [place] [address] Ketones Ql (U) Negative Normal Negative [facility] Comment on above: Performed By: #### C BCWD #### [facility] [address] [place] [address] Leukocyte esterase Test strip Ql (U) MODERATE Abnormal Negative [facility] Comment on above: Performed By: #### C BCWD #### [facility] [address] [place] [address] Nitrite Ql (U) Negative Normal Negative [facility] Comment on above: Performed By: #### C BCWD #### [facility] [address] [place] [address] pH (U) 7.0 [pH] Normal 5.0-9.0 [facility] Comment on above: Performed By: #### C BCWD #### [facility] [address] [place] [address] Protein Ql (U) Negative Normal Negative [facility] Comment on above: Performed By: #### C BCWD #### [facility] [address] [place] [address] Specific gravity (U) [Rel density] 1.015 Normal 1.005-1.03 [facility] Comment on above: Performed By: #### C BCWD #### [facility] [address] [place] [address] Urobilinogen Qn (U) 0.2 {Chan'U}/dL Normal < 2.0 [facility] Comment on above: Performed By: #### C BCWD #### [facility] [address] [place] [address] Urine Microscopicon 01-21-20 24 Urine Fine Casts 1-3 Normal 0-5 [facility] Comment on above: Performed By: #### C BCWD #### [facility] [address] [place] [address] Bacteria LM.HPF (Urine sed) [#/Area] Negative Normal Negative [facility] Comment on above: Performed By: #### C BCWD #### [facility] [address] [place] [address] Urine Epithelial Cells Auto 0-2 Normal 0-5 [facility] Comment on above: Performed By: #### C BCWD #### [facility] [address] [place] [address] Urine Hyaline Casts Auto 5-10 Normal 0-5 [facility] Comment on above: Performed By: #### C BCWD #### [facility] [address] [place] [address] Urine RBC Auto 0-2 Normal 0-5 [facility] Comment on above: Performed By: #### C BCWD #### [facility] [address] [place] [address] Urine WBC Auto 20-50 Abnormal 0-5 [facility] Comment on above: Performed By: #### C BCWD #### [facility] [address] [place] [address] BASIC METABOLIC PANLon 01-18 Anion gap [Moles/Vol] 6 mmol/L Normal 5-15 [place] Comment on above: Performed By: #### C BCA #### [facility] ([id number]) [address] [place] [address] Calcium [Mass/Vol] 8.8 mg/dL Normal 8.5-10.5 [facility] Comment on above: Performed By: #### C BCA #### [facility] ([id number]) [address], [address] [place] [address] Chloride [Moles/Vol] 112 mmol/L High 98-109 [facility] Comment on above: Performed By: #### C BCA #### [facility] ([id number]) [address], [address] [place] [address] CO2 [Moles/Vol] 25 mmol/L Normal 22-32 [facility] Comment on above: Performed By: #### C BCA #### [facility] ([id number]) [address], [address] [place] [address] Creatinine [Mass/Vol] 0.93 mg/dL Normal 0.40-1.00 [place] Comment on above: Result Comment: METH OD TRACEABLE TO IDMS STANDARD Performed By: #### C BCA #### [facility] ([id number]) [address], [address] [place] [address] GFR/1.73 sq M.predicted among non-blacks MDRD (S/P/Bld) [Vol rate/Area] 63 mL/min/{1.73_m2} Normal >59 [facility] Comment on above: Result Comment: Reported eGFR is based on the CKD-EPI 2020 equation that does not use a race coefficient. Performed By: #### C BCA #### [facility] ([id number]) [address], [address] [place] [address] Glucose [Mass/Vol] 96 mg/dL Normal 65-99 [facility] Comment on above: Performed By: #### C BCA #### [facility] ([id number]) [address], [address] [place] [address] Potassium [Moles/Vol] 4.4 mmol/L Normal 3.5-5.0 [place] Comment on above: Performed By: #### C BCA #### [facility] ([id number]) [address], [address] [place] [address] Sodium [Moles/Vol] 143 mmol/L Normal 134-146 [facility] Comment on above: Performed By: #### C BCA #### [facility] ([id number]) [address], [address] [place] [address] Urea nitrogen [Mass/Vol] 18 mg/dL Normal 5-27 [facility] Comment on above: Performed By: #### C BCA #### [facility] ([id number]) [address], [address] [place] [address] COMPLETE BLOOD COUNTon 01-18 Erythrocyte distribution width (RBC) [Ratio] 19.3 % High 11.5-15.0 [facility] Comment on above: Performed By: #### C BCA #### [facility] ([id number]) [address], [address] [place] [address] Hematocrit (Bld) [Volume fraction] 34.6 % Low 35-47 [facility] Comment on above: Performed By: #### C BCA #### [facility] ([id number]) [address], [address] [place] [address] Hemoglobin (Bld) [Mass/Vol] 11.1 g/dL Low 11.7-15.5 [facility] Comment on above: Performed By: #### C BCA #### [facility] ([id number]) [address], [address] [place] [address] MCH (RBC) [Entitic mass] 28.5 pg Normal 27-34 [facility] Comment on above: Performed By: #### C BCA #### [facility] ([id number]) [address] [place] [address] MCHC (RBC) [Mass/Vol] 31.9 g/dL Low 32-36 [place] Comment on above: Performed By: #### C BCA #### [facility] ([id number]) [address], [address] [place] [address] MCV (RBC) [Entitic vol] 89 fL Normal 80-100 [facility] Comment on above: Performed By: #### C BCA #### [facility] ([id number]) [address], [address] [place] [address] Platelet mean volume (Bld) [Entitic vol] 8.6 fL Normal 7-12 [facility] Comment on above: Performed By: #### C BCA #### [facility] ([id number]) [address], [address] [place] [address] Platelets (Bld) [#/Vol] 288 10*3/uL Normal 150-450 [facility] Comment on above: Performed By: #### C BCA #### [facility] ([id number]) [address], [address] [place] [address] RBC COUNT 3.88 X10E12/L Normal 3.80-5.20 [facility] Comment on above: Performed By: #### C BCA #### [facility] ([id number]) [address], [address] [place] [address] WBC (Bld) [#/Vol] 9.9 10*3/uL Normal 4.0-11.0 [facility] Comment on above: Performed By: #### C BCA #### [facility] ([id number]) [address] [facility] [place] [address] Glucose Glucometer (BldC) [M ass/Vol]on 01-19-2024 Glucose [Mass/Vol] 106 mg/dL High 65-99 [facility] Glucose [Mass/Vol] 157 mg/dL High 65-99 [facility] Glucose [Mass/Vol] 106 mg/dL High 65-99 [facility] BASIC METABOLIC PANLon 01-17 Anion gap [Moles/Vol] 8 mmol/L Normal 5-15 [place] Comment on above: Performed By: #### C BCA #### [facility] ([id number]) [address] [facility] [place] [address] Calcium [Mass/Vol] 8.9 mg/dL Normal 8.5-10.5 [facility] Comment on above: Performed By: #### C BCA #### [facility] ([id number]) [address] [facility] [place] [address] Chloride [Moles/Vol] 112 mmol/L High 98-109 [facility] Comment on above: Performed By: #### C BCA #### [facility] ([id number]) [address] [facility] [place] [address] CO2 [Moles/Vol] 23 mmol/L Normal 22-32 [facility] Comment on above: Performed By: #### C BCA #### [facility] ([id number]) [address], [address] [place] [address] Creatinine [Mass/Vol] 1.07 mg/dL High 0.40-1.00 [place] Comment on above: Result Comment: METH OD TRACEABLE TO IDMS STANDARD Performed By: #### C BCA #### [facility] ([id number]) [address] [address] [place] [address] GFR/1.73 sq M.predicted among non-blacks MDRD (S/P/Bld) [Vol rate/Area] 53 mL/min/{1.73_m2} Low >59 [facility] Comment on above: Result Comment: Reported eGFR is based on the CKD-EPI 2020 equation that does not use a race coefficient. Performed By: #### C BCA #### [facility] ([id number]) [address] [address] [place] [address] Glucose [Mass/Vol] 109 mg/dL High 65-99 [facility] Comment on above: Performed By: #### C BCA #### [facility] ([id number]) [address] [address] [place] [address] Potassium [Moles/Vol] 3.6 mmol/L Normal 3.5-5.0 [place] Comment on above: Performed By: #### C BCA #### [facility] ([id number]) [address], [address] [place] [address] Sodium [Moles/Vol] 143 mmol/L Normal 134-146 [facility] Comment on above: Performed By: #### C BCA #### [facility] ([id number]) [address] [address] [place] [address] Urea nitrogen [Mass/Vol] 21 mg/dL Normal 5-27 [facility] Comment on above: Performed By: #### C BCA #### [facility] ([id number]) [address] [address] [place] [address] COMPLETE BLOOD COUNTon 01-17 Erythrocyte distribution width (RBC) [Ratio] 18.9 % High 11.5-15.0 [facility] Comment on above: Performed By: #### C BCA #### [facility] ([id number]) [address] [place] [address] Hematocrit (Bld) [Volume fraction] 35.0 % Normal 35-47 [facility] Comment on above: Performed By: #### C BCA #### [facility] ([id number]) [address], [address] [place] [address] Hemoglobin (Bld) [Mass/Vol] 11.6 g/dL Low 11.7-15.5 [facility] Comment on above: Performed By: #### C BCA #### [facility] ([id number]) [address], [address] [place] [address] MCH (RBC) [Entitic mass] 28.8 pg Normal 27-34 [facility] Comment on above: Performed By: #### C BCA #### [facility] ([id number]) [address], [address] [place] [address] MCHC (RBC) [Mass/Vol] 33.1 g/dL Normal 32-36 [place] Comment on above: Performed By: #### C BCA #### [facility] ([id number]) [address], [address] [place] [address] MCV (RBC) [Entitic vol] 87 fL Normal 80-100 [facility] Comment on above: Performed By: #### C BCA #### [facility] ([id number]) [address], [address] [place] [address] Platelet mean volume (Bld) [Entitic vol] 8.3 fL Normal 7-12 [facility] Comment on above: Performed By: #### C BCA #### [facility] ([id number]) [address] [place] [address] Platelets (Bld) [#/Vol] 331 10*3/uL Normal 150-450 [facility] Comment on above: Performed By: #### C BCA #### [facility] ([id number]) [address] [place] [address] RBC COUNT 4.03 X10E12/L Normal 3.80-5.20 [facility] Comment on above: Performed By: #### C BCA #### [facility] ([id number]) [address], [address] [place] [address] WBC (Bld) [#/Vol] 10.5 10*3/uL Normal 4.0-11.0 [facility] Comment on above: Performed By: #### C BCA #### [facility] ([id number]) [address] [place] [address] Glucose Glucometer (BldC) [M ass/Vol]on 01-18-2024 Glucose [Mass/Vol] 124 mg/dL High 65-99 [facility] Glucose [Mass/Vol] 149 mg/dL High 65-99 [facility] BASIC METABOLIC PANLon 01-16 Anion gap [Moles/Vol] 10 mmol/L Normal 5-15 [place] Comment on above: Performed By: #### C BCA #### [facility] ([id number]) [address], [address] [place] [address] Calcium [Mass/Vol] 8.6 mg/dL Normal 8.5-10.5 [facility] Comment on above: Performed By: #### C BCA #### [facility] ([id number]) [address] [place] [address] Chloride [Moles/Vol] 111 mmol/L High 98-109 [facility] Comment on above: Performed By: #### C BCA #### [facility] ([id number]) [address] [place] [address] CO2 [Moles/Vol] 19 mmol/L Low 22-32 [facility] Comment on above: Performed By: #### C BCA #### [facility] ([id number]) [address], [address] [place] [address] Creatinine [Mass/Vol] 0.94 mg/dL Normal 0.40-1.00 [place] Comment on above: Result Comment: METH OD TRACEABLE TO IDMS STANDARD Performed By: #### C BCA #### [facility] ([id number]) [address], [address] [place] [address] GFR/1.73 sq M.predicted among non-blacks MDRD (S/P/Bld) [Vol rate/Area] 62 mL/min/{1.73_m2} Normal >59 [facility] Comment on above: Result Comment: Reported eGFR is based on the CKD-EPI 2020 equation that does not use a race coefficient. Performed By: #### C BCA #### [facility] ([id number]) [address] [place] [address] Glucose [Mass/Vol] 72 mg/dL Normal 65-99 [facility] Comment on above: Performed By: #### C BCA #### [facility] ([id number]) [address], [address] [place] [address] Potassium [Moles/Vol] 3.9 mmol/L Normal 3.5-5.0 [place] Comment on above: Performed By: #### C BCA #### [facility] ([id number]) [address], [address] [place] [address] Sodium [Moles/Vol] 140 mmol/L Normal 134-146 [facility] Comment on above: Performed By: #### C BCA #### [facility] ([id number]) [address], [address] [place] [address] Urea nitrogen [Mass/Vol] 15 mg/dL Normal 5-27 [facility] Comment on above: Performed By: #### C BCA #### [facility] ([id number]) [address], [address] [place] [address] COMPLETE BLOOD COUNTon 01-16 Erythrocyte distribution width (RBC) [Ratio] 18.5 % High 11.5-15.0 [facility] Comment on above: Performed By: #### C BCA #### [facility] ([id number]) [address] [place] [address] Hematocrit (Bld) [Volume fraction] 35.3 % Normal 35-47 [facility] Comment on above: Performed By: #### C BCA #### [facility] ([id number]) [address] [place] [address] Hemoglobin (Bld) [Mass/Vol] 11.4 g/dL Low 11.7-15.5 [facility] Comment on above: Performed By: #### C BCA #### [facility] ([id number]) [address] [place] [address] MCH (RBC) [Entitic mass] 28.5 pg Normal 27-34 [facility] Comment on above: Performed By: #### C BCA #### [facility] ([id number]) [address] [place] [address] MCHC (RBC) [Mass/Vol] 32.3 g/dL Normal 32-36 [place] Comment on above: Performed By: #### C BCA #### [facility] ([id number]) [address], [address] [place] [address] MCV (RBC) [Entitic vol] 88 fL Normal 80-100 [facility] Comment on above: Performed By: #### C BCA #### [facility] ([id number]) [address], [address] [place] [address] Platelet mean volume (Bld) [Entitic vol] 8.5 fL Normal 7-12 [facility] Comment on above: Performed By: #### C BCA #### [facility] ([id number]) [address], [address] [place] [address] Platelets (Bld) [#/Vol] 332 10*3/uL Normal 150-450 [facility] Comment on above: Performed By: #### C BCA #### [facility] ([id number]) [address], [address] [place] [address] RBC COUNT 4.00 X10E12/L Normal 3.80-5.20 [facility] Comment on above: Performed By: #### C BCA #### [facility] ([id number]) [address], [address] [place] [address] WBC (Bld) [#/Vol] 10.3 10*3/uL Normal 4.0-11.0 [facility] Comment on above: Performed By: #### C BCA #### [facility] ([id number]) [address], [address] [place] [address] Glucose Glucometer (dC) [M ass/Vol]on 01-17-2024 Glucose [Mass/Vol] 137 mg/dL High 65-99 [facility] Glucose [Mass/Vol] 102 mg/dL High 65-99 [facility] Glucose [Mass/Vol] 75 mg/dL Normal 65-99 [facility] Glucose [Mass/Vol] 90 mg/dL Normal 65-99 [facility] MR BRAIN WO CONTon MR BRAIN WO CONT MR BRAIN WO CONT STUDY: MRI brain without contrast CLINICAL HISTORY: Neuro deficit, acute, stroke suspected COMPARISON: 01/10/2024. TECHNIQUE: Routine multiplanar multisequence MR imaging of the brain was performed without contrast. FINDINGS: Acute infarct left basal ganglia. Left-sided watershed distribution ischemia. No No ventricular outflow obstruction. No acute intracranial hemorrhage. Punctate microhemorrhage right perirolandic region, left parietal lobe. Asymmetric restricted diffusion left hippocampus, subtle findings within the right hippocampus or less readily evident [but likely present]. Mild/moderate global parenchymal volume loss with striking disproportionate hippocampal volume loss. Multifocal cerebellar insufflation, sequelae nonacute lacunar infarct right putamen. Cruciate sign within the central saima [series 6 image #8]. Unremarkable intracranial vascular flow voids. Unremarkable visualized suprahyoid neck, orbits, scalp soft tissues. Asymmetric left greater than right mastoid fluid. IMPRESSION: 1. Acute infarct left basal ganglia. Evolution of prior left watershed distribution ischemic change [no subacute]. 2. Asymmetric left greater than right hippocampal signal changes, suspect acute post ictal changes. 3. Strikingly disproportionate cerebellar volume loss, particularly affecting white matter. Findings may relate to sequelae of prior rhomboencephalitis, neurodegenerative condition [such as multisystem atrophy], end-stage Langerhans' cell histiocytosis, etc. Finalized by Min Fair MD on 01/17/2024 7:10 PM Normal [facility] BASIC METABOLIC PANLon 01-15 Anion gap [Moles/Vol] 9 mmol/L Normal 5-15 [place] Comment on above: Performed By: #### C BCA #### [facility] ([id number]) [address], [address] [place] [address] Calcium [Mass/Vol] 8.5 mg/dL Normal 8.5-10.5 [facility] Comment on above: Performed By: #### C BCA #### [facility] ([id number]) [address], [address] [place] [address] Chloride [Moles/Vol] 111 mmol/L High 98-109 [facility] Comment on above: Performed By: #### C BCA #### [facility] ([id number]) [address], [address] [place] [address] CO2 [Moles/Vol] 21 mmol/L Low 22-32 [facility] Comment on above: Performed By: #### C BCA #### [facility] ([id number]) [address], [address] [place] [address] Creatinine [Mass/Vol] 0.96 mg/dL Normal 0.40-1.00 [place] Comment on above: Result Comment: METH OD TRACEABLE TO IDMS STANDARD Performed By: #### C BCA #### [facility] ([id number]) [address], [address] [place] [address] GFR/1.73 sq M.predicted among non-blacks MDRD (S/P/Bld) [Vol rate/Area] 60 mL/min/{1.73_m2} Normal >59 [facility] Comment on above: Result Comment: Reported eGFR is based on the CKD-EPI 2020 equation that does not use a race coefficient. Performed By: #### C BCA #### [facility] ([id number]) [address], [address] [place] [address] Glucose [Mass/Vol] 88 mg/dL Normal 65-99 [facility] Comment on above: Performed By: #### C BCA #### [facility] ([id number]) [address], [address] [place] [address] Potassium [Moles/Vol] 4.1 mmol/L Normal 3.5-5.0 [place] Comment on above: Performed By: #### C BCA #### [facility] ([id number]) [address], [address] [place] [address] Sodium [Moles/Vol] 141 mmol/L Normal 134-146 [facility] Comment on above: Performed By: #### C BCA #### [facility] ([id number]) [address], [address] [place] [address] Urea nitrogen [Mass/Vol] 19 mg/dL Normal 5-27 [facility] Comment on above: Performed By: #### C BCA #### [facility] ([id number]) [address], [address] [place] [address] COMPLETE BLOOD COUNTon 01-15 Erythrocyte distribution width (RBC) [Ratio] 18.0 % High 11.5-15.0 [facility] Comment on above: Performed By: #### C BCA #### [facility] ([id number]) [address], [address] [place] [address] Hematocrit (Bld) [Volume fraction] 37.3 % Normal 35-47 [facility] Comment on above: Performed By: #### C BCA #### [facility] ([id number]) [address], [address] [place] [address] Hemoglobin (Bld) [Mass/Vol] 11.9 g/dL Normal 11.7-15.5 [facility] Comment on above: Performed By: #### C BCA #### [facility] ([id number]) [address], [address] [place] [address] MCH (RBC) [Entitic mass] 28.2 pg Normal 27-34 [facility] Comment on above: Performed By: #### C BCA #### [facility] ([id number]) [address], [address] [place] [address] MCHC (RBC) [Mass/Vol] 31.9 g/dL Low 32-36 [place] Comment on above: Performed By: #### C BCA #### [facility] ([id number]) [address], [address] [place] [address] MCV (RBC) [Entitic vol] 88 fL Normal 80-100 [facility] Comment on above: Performed By: #### C BCA #### [facility] ([id number]) [address], [address] [place] [address] Platelet mean volume (Bld) [Entitic vol] 8.1 fL Normal 7-12 [facility] Comment on above: Performed By: #### C BCA #### [facility] ([id number]) [address], [address] [place] [address] Platelets (Bld) [#/Vol] 340 10*3/uL Normal 150-450 [facility] Comment on above: Performed By: #### C BCA #### [facility] ([id number]) [address], [address] [place] [address] RBC COUNT 4.22 X10E12/L Normal 3.80-5.20 [facility] Comment on above: Performed By: #### C BCA #### [facility] ([id number]) [address], [address] [place] [address] WBC (Bld) [#/Vol] 11.7 10*3/uL High 4.0-11.0 [facility] Comment on above: Performed By: #### C BCA #### [facility] ([id number]) [address], [address] [place] [address] Glucose Glucometer (BldC) [M ass/Vol]on 01-16-2024 Glucose [Mass/Vol] 77 mg/dL Normal 65-99 [facility] Glucose [Mass/Vol] 85 mg/dL Normal 65-99 [facility] Glucose [Mass/Vol] 85 mg/dL Normal 65-99 [facility] Glucose [Mass/Vol] 102 mg/dL High 65-99 [facility] BASIC METABOLIC PANLon 01-14 Anion gap [Moles/Vol] 10 mmol/L Normal 5-15 [place] Comment on above: Performed By: #### C BCA #### [facility] ([id number]) [address], [address] [place] [address] Calcium [Mass/Vol] 8.7 mg/dL Normal 8.5-10.5 [facility] Comment on above: Performed By: #### C BCA #### [facility] ([id number]) [address], [address] [place] [address] Chloride [Moles/Vol] 111 mmol/L High 98-109 [facility] Comment on above: Performed By: #### C BCA #### [facility] ([id number]) [address], [address] [place] [address] CO2 [Moles/Vol] 22 mmol/L Normal 22-32 [facility] Comment on above: Performed By: #### C BCA #### [facility] ([id number]) [address], [address] [place] [address] Creatinine [Mass/Vol] 0.99 mg/dL Normal 0.40-1.00 [place] Comment on above: Result Comment: METH OD TRACEABLE TO IDMS STANDARD Performed By: #### C BCA #### [facility] ([id number]) [address], [address] [place] [address] GFR/1.73 sq M.predicted among non-blacks MDRD (S/P/Bld) [Vol rate/Area] 58 mL/min/{1.73_m2} Low >59 [facility] Comment on above: Result Comment: Reported eGFR is based on the CKD-EPI 2020 equation that does not use a race coefficient. Performed By: #### C BCA #### [facility] ([id number]) [address], [address] [place] [address] Glucose [Mass/Vol] 72 mg/dL Normal 65-99 [facility] Comment on above: Performed By: #### C BCA #### [facility] ([id number]) [address], [address] [place] [address] Potassium [Moles/Vol] 3.9 mmol/L Normal 3.5-5.0 [place] Comment on above: Performed By: #### C BCA #### [facility] ([id number]) [address], [address] [place] [address] Sodium [Moles/Vol] 143 mmol/L Normal 134-146 [facility] Comment on above: Performed By: #### C BCA #### [facility] ([id number]) [address], [address] [place] [address] Urea nitrogen [Mass/Vol] 18 mg/dL Normal 5-27 [facility] Comment on above: Performed By: #### C BCA #### [facility] ([id number]) [address], [address] [place] [address] COMPLETE BLOOD COUNTon 01-14 Erythrocyte distribution width (RBC) [Ratio] 17.4 % High 11.5-15.0 [facility] Comment on above: Performed By: #### C BCA #### [facility] ([id number]) [address], [address] [place] [address] Hematocrit (Bld) [Volume fraction] 35.7 % Normal 35-47 [facility] Comment on above: Performed By: #### C BCA #### [facility] ([id number]) [address], [address] [place] [address] Hemoglobin (Bld) [Mass/Vol] 11.4 g/dL Low 11.7-15.5 [facility] Comment on above: Performed By: #### C BCA #### [facility] ([id number]) [address], [address] [place] [address] MCH (RBC) [Entitic mass] 28.1 pg Normal 27-34 [facility] Comment on above: Performed By: #### C BCA #### [facility] ([id number]) [address], [address] [place] [address] MCHC (RBC) [Mass/Vol] 32.1 g/dL Normal 32-36 [place] Comment on above: Performed By: #### C BCA #### [facility] ([id number]) [address], [address] [place] [address] MCV (RBC) [Entitic vol] 88 fL Normal 80-100 [facility] Comment on above: Performed By: #### C BCA #### [facility] ([id number]) [address], [facility] [address] [place] [address] Platelet mean volume (Bld) [Entitic vol] 8.2 fL Normal 7-12 [facility] Comment on above: Performed By: #### C BCA #### [facility] ([id number]) [address] [address] [place] [address] Platelets (Bld) [#/Vol] 371 10*3/uL Normal 150-450 [facility] Comment on above: Performed By: #### C BCA #### [facility] ([id number]) [address], [facility] [address] [place] [address] RBC COUNT 4.07 X10E12/L Normal 3.80-5.20 [facility] Comment on above: Performed By: #### C BCA #### [facility] ([id number]) [address], [address] [address] WBC (Bld) [#/Vol] 12.1 10*3/uL High 4.0-11.0 [facility] Comment on above: Performed By: #### C BCA #### [facility] ([id number]) [address], [address] [place] [address] Glucose Glucometer (dC) [M ass/Vol]on 01-15-2024 Glucose [Mass/Vol] 90 mg/dL Normal 65-99 [facility] Glucose [Mass/Vol] 83 mg/dL Normal 65-99 [facility] Glucose [Mass/Vol] 63 mg/dL Low 65-99 [facility] Glucose [Mass/Vol] 67 mg/dL Normal 65-99 [facility] Glucose [Mass/Vol] 76 mg/dL Normal 65-99 [facility] Glucose [Mass/Vol] 67 mg/dL Normal 65-99 [facility] Glucose [Mass/Vol] 66 mg/dL Normal 65-99 [facility] BASIC METABOLIC PANLon 01-13 Anion gap [Moles/Vol] 10 mmol/L Normal 5-15 [place] Comment on above: Performed By: #### C BCA #### [facility] ([id number]) [address], [address] [place] [address] Calcium [Mass/Vol] 8.5 mg/dL Normal 8.5-10.5 [facility] Comment on above: Performed By: #### C BCA #### [facility] ([id number]) [address], [address] [place] [address] Chloride [Moles/Vol] 109 mmol/L Normal 98-109 [facility] Comment on above: Performed By: #### C BCA #### [facility] ([id number]) [address], [address] [place] [address] CO2 [Moles/Vol] 22 mmol/L Normal 22-32 [facility] Comment on above: Performed By: #### C BCA #### [facility] ([id number]) [address], [address] [place] [address] Creatinine [Mass/Vol] 0.93 mg/dL Normal 0.40-1.00 [place] Comment on above: Result Comment: METH OD TRACEABLE TO IDMS STANDARD Performed By: #### C BCA #### [facility] ([id number]) [address], [address] [place] [address] GFR/1.73 sq M.predicted among non-blacks MDRD (S/P/Bld) [Vol rate/Area] 63 mL/min/{1.73_m2} Normal >59 [facility] Comment on above: Result Comment: Reported eGFR is based on the CKD-EPI 2020 equation that does not use a race coefficient. Performed By: #### C BCA #### [facility] ([id number]) [address], [address] [place] [address] Glucose [Mass/Vol] 77 mg/dL Normal 65-99 [facility] Comment on above: Performed By: #### C BCA #### [facility] ([id number]) [address], [address] [place] [address] Potassium [Moles/Vol] 4.7 mmol/L Normal 3.5-5.0 [place] Comment on above: Result Comment: SPEC IMEN HEMOLYZED, RESULTS INCREASED MODERATELY HEMOLYZED Performed By: #### C BCA #### [facility] ([id number]) [address] [place] [address] Sodium [Moles/Vol] 141 mmol/L Normal 134-146 [facility] Comment on above: Performed By: #### C BCA #### [facility] ([id number]) [address], [address] [place] [address] Urea nitrogen [Mass/Vol] 18 mg/dL Normal 5-27 [facility] Comment on above: Performed By: #### C BCA #### [facility] ([id number]) [address], [address] [place] [address] COMPLETE BLOOD COUNTon 01-13 Erythrocyte distribution width (RBC) [Ratio] 17.5 % High 11.5-15.0 [facility] Comment on above: Performed By: #### C BCA #### [facility] ([id number]) [address], [address] [place] [address] Hematocrit (Bld) [Volume fraction] 35.4 % Normal 35-47 [facility] Comment on above: Performed By: #### C BCA #### [facility] ([id number]) [address], [address] [place] [address] Hemoglobin (Bld) [Mass/Vol] 11.6 g/dL Low 11.7-15.5 [facility] Comment on above: Performed By: #### C BCA #### [facility] ([id number]) [address], [address] [place] [address] MCH (RBC) [Entitic mass] 28.2 pg Normal 27-34 [facility] Comment on above: Performed By: #### C BCA #### [facility] ([id number]) [address], [address] [place] [address] MCHC (RBC) [Mass/Vol] 32.7 g/dL Normal 32-36 [place] Comment on above: Performed By: #### C BCA #### [facility] ([id number]) [address], [address] [place] [address] MCV (RBC) [Entitic vol] 86 fL Normal 80-100 [facility] Comment on above: Performed By: #### C BCA #### [facility] ([id number]) [address], [address] [place] [address] Platelet mean volume (Bld) [Entitic vol] 8.1 fL Normal 7-12 [facility] Comment on above: Performed By: #### C BCA #### [facility] ([id number]) [address], [address] [place] [address] Platelets (Bld) [#/Vol] 378 10*3/uL Normal 150-450 [facility] Comment on above: Performed By: #### C BCA #### [facility] ([id number]) [address], [address] [place] [address] RBC COUNT 4.10 X10E12/L Normal 3.80-5.20 [facility] Comment on above: Performed By: #### C BCA #### [facility] ([id number]) [address], [address] [place] [address] WBC (Bld) [#/Vol] 12.8 10*3/uL High 4.0-11.0 [facility] Comment on above: Performed By: #### C BCA #### [facility] ([id number]) [address], [address] [place] [address] Glucose Glucometer (BldC) [M ass/Vol]on 01-14-2024 Glucose [Mass/Vol] 69 mg/dL Normal 65-99 [facility] Glucose [Mass/Vol] 69 mg/dL Normal 65-99 [facility] Glucose [Mass/Vol] 73 mg/dL Normal 65-99 [facility] Glucose [Mass/Vol] 66 mg/dL Normal 65-99 [facility] Glucose [Mass/Vol] 72 mg/dL Normal 65-99 [facility] Glucose [Mass/Vol] 83 mg/dL Normal 65-99 [facility] XR ABDOMEN AP 1 VWon 024 XR ABDOMEN AP 1 VW XR ABDOMEN AP 1 VW Abdomen: HISTORY: Enteric tube placement. Single view of the abdomen was obtained. Enteric tube tip is within the mid stomach. Bowel gas pattern is nonspecific. No free air. IMPRESSION: Enteric tube tip within mid stomach. Finalized by Rojas Iglesias MD on 01/14/2024 7:42 PM Normal [facility] BASIC METABOLIC PANLon 01-12 Anion gap [Moles/Vol] 9 mmol/L Normal 5-15 [facility] Comment on above: Performed By: #### C BCA #### [facility] ([id number]) [address], [address] [place] [address] Calcium [Mass/Vol] 8.8 mg/dL Normal 8.5-10.5 [facility] Comment on above: Performed By: #### C BCA #### [facility] ([id number]) [address], [address] [place] [address] Chloride [Moles/Vol] 108 mmol/L Normal 98-109 [facility] Comment on above: Performed By: #### C BCA #### [facility] ([id number]) [address], [address] [place] [address] CO2 [Moles/Vol] 26 mmol/L Normal 22-32 [facility] Comment on above: Performed By: #### C BCA #### [facility] ([id number]) [address], [address] [place] [address] Creatinine [Mass/Vol] 0.96 mg/dL Normal 0.40-1.00 [place] Comment on above: Result Comment: METH OD TRACEABLE TO IDMS STANDARD Performed By: #### C BCA #### [facility] ([id number]) [address], [address] [place] [address] GFR/1.73 sq M.predicted among non-blacks MDRD (S/P/Bld) [Vol rate/Area] 60 mL/min/{1.73_m2} Normal >59 [facility] Comment on above: Result Comment: Reported eGFR is based on the CKD-EPI 2020 equation that does not use a race coefficient. Performed By: #### C BCA #### [facility] ([id number]) [address], [address] [place] [address] Glucose [Mass/Vol] 98 mg/dL Normal 65-99 [facility] Comment on above: Performed By: #### C BCA #### [facility] ([id number]) [address], [address] [place] [address] Potassium [Moles/Vol] 3.2 mmol/L Low 3.5-5.0 [place] Comment on above: Performed By: #### C BCA #### [facility] ([id number]) [address], [address] [place] [address] Sodium [Moles/Vol] 143 mmol/L Normal 134-146 [facility] Comment on above: Performed By: #### C BCA #### [facility] ([id number]) [address], [address] [place] [address] Urea nitrogen [Mass/Vol] 22 mg/dL Normal 5-27 [facility] Comment on above: Performed By: #### C BCA #### [facility] ([id number]) [address], [address] [place] [address] COMPLETE BLOOD COUNTon 01-12 Erythrocyte distribution width (RBC) [Ratio] 17.0 % High 11.5-15.0 [facility] Comment on above: Performed By: #### C BCA #### [facility] ([id number]) [address], [address] [place] [address] Hematocrit (Bld) [Volume fraction] 32.4 % Low 35-47 [facility] Comment on above: Performed By: #### C BCA #### [facility] ([id number]) [address], [address] [place] [address] Hemoglobin (Bld) [Mass/Vol] 10.7 g/dL Low 11.7-15.5 [facility] Comment on above: Performed By: #### C BCA #### [facility] ([id number]) [address], [address] [place] [address] MCH (RBC) [Entitic mass] 28.6 pg Normal 27-34 [facility] Comment on above: Performed By: #### C BCA #### [facility] ([id number]) [address], [address] [place] [address] MCHC (RBC) [Mass/Vol] 33.0 g/dL Normal 32-36 [place] Comment on above: Performed By: #### C BCA #### [facility] ([id number]) [address], [address] [place] [address] MCV (RBC) [Entitic vol] 87 fL Normal 80-100 [facility] Comment on above: Performed By: #### C BCA #### [facility] ([id number]) [address] [address] Platelet mean volume (Bld) [Entitic vol] 7.5 fL Normal 7-12 [facility] Comment on above: Performed By: #### C BCA #### [facility] ([id number]) [address], [address] [address] Platelets (Bld) [#/Vol] 374 10*3/uL Normal 150-450 [facility] Comment on above: Performed By: #### C BCA #### [facility] ([id number]) [address] [address] RBC COUNT 3.74 X10E12/L Low 3.80-5.20 [facility] Comment on above: Performed By: #### C BCA #### [facility] ([id number]) [address], [address] [address] WBC (Bld) [#/Vol] 10.8 10*3/uL Normal 4.0-11.0 [facility] Comment on above: Performed By: #### C BCA #### [facility] ([id number]) [address] [address] Glucose Glucometer (BldC) [M ass/Vol]on 01-13-2024 Glucose [Mass/Vol] 81 mg/dL Normal 65-99 [facility] Glucose [Mass/Vol] 91 mg/dL Normal 65-99 [facility] Glucose [Mass/Vol] 86 mg/dL Normal 65-99 [facility] Glucose [Mass/Vol] 85 mg/dL Normal 65-99 [facility] Glucose [Mass/Vol] 79 mg/dL Normal 65-99 [facility] POTASSIUMon 03-19-2024 Potassium [Moles/Vol] 3.5 mmol/L Normal 3.5-5.0 [place] Comment on above: Performed By: #### C BCA #### [facility] ([id number]) [address] [place] [address], [address] [place] [address] URINALYSISon 01-13-2024 Bilirubin Ql (U) Negative Normal NEG [facility] [facility] BLOOD/HGB Small Abnormal NEG [facility] Color (U) YELLOW Normal YELLOW [facility] Glucose Ql (U) Negative Normal NEG [facility] Ketones Ql (U) Negative Normal NEG [facility] Leukocyte esterase Test strip Ql (U) Large Abnormal NEG [facility] MUCOUS PRESENT Abnormal [facility] Nitrite Ql (U) Negative Normal NEG [facility] pH (U) 7.0 [pH] Normal 5.0-8.5 [facility] Protein Ql (U) 30 mg/dL Abnormal NEG [facility] R.B.CELLS 23 /hpf High 0-5 [facility] RENAL EPITHELIUM 4 /hpf High 0 [facility] Specific gravity (U) [Rel density] 1.012 Normal 1.003-1.03 5 [facility] TRANSITIONAL EPITH 1 /hpf High 0 [facility] TURBIDITY CLOUDY Abnormal CLEAR [facility] Urobilinogen Qn (U) 2 {Chan'U}/dL High <1.1 [facility] W.B.CELLS >720 High 0-5 [facility] WBC CLUMPS MANY Abnormal [facility] URINE CULTUREon 01-13-2024 Bacteria identified Cx Nom (U) CULTURE RESULTS >100,000 ORGANISMS/mL ESCHERICHIA COLI <1000 ORGANISMS/ML NORMAL URO GENITAL ILDA [ S = SUSCEPTIBLE R = RESISTANT I = INTERMEDIATE S-DO = Susceptible-dose dependent NS = Non-suscceptible NO = No Interpretation ] Organism: ESCHERICHIA COLI Antibiotic Interpretation YOUSIF Status AMPICILLIN S 8 F AMP/SULBACTAM S <=2/1 F CEFAZOLIN S <=4 F CEFTRIAXONE S <=1 F CIPROFLOXACIN S <=0.25 F GENTAMICIN S <=1 F LEVOFLOXACIN S <=0.12 F NITROFURANTOIN S <=16 F PIPERACIL/TAZOBACTAM S <=4 F TOBRAMYCIN S <=1 F TRIMETH/SULFAMETHOXAZOLE S <=/ F Susceptible [facility] Comment on above: Performed By: #### C BCA #### [facility] ([id number]) [address], [address] [place] [address] BASIC METABOLIC PANLon 01-11 Anion gap [Moles/Vol] 10 mmol/L Normal 5-15 [place] Comment on above: Performed By: #### C BCA #### [facility] ([id number]) [address], [address] [place] [address] Calcium [Mass/Vol] 9.1 mg/dL Normal 8.5-10.5 [facility] Comment on above: Performed By: #### C BCA #### [facility] ([id number]) [address], [address] [place] [address] Chloride [Moles/Vol] 109 mmol/L Normal 98-109 [facility] Comment on above: Performed By: #### C BCA #### [facility] ([id number]) [address], [address] [place] [address] CO2 [Moles/Vol] 24 mmol/L Normal 22-32 [facility] Comment on above: Performed By: #### C BCA #### [facility] ([id number]) [address], [address] [place] [address] Creatinine [Mass/Vol] 0.96 mg/dL Normal 0.40-1.00 [place] Comment on above: Result Comment: METH OD TRACEABLE TO IDMS STANDARD Performed By: #### C BCA #### [facility] ([id number]) [address], [address] [place] [address] GFR/1.73 sq M.predicted among non-blacks MDRD (S/P/Bld) [Vol rate/Area] 60 mL/min/{1.73_m2} Normal >59 [facility] Comment on above: Result Comment: Reported eGFR is based on the CKD-EPI 2020 equation that does not use a race coefficient. Performed By: #### C BCA #### [facility] ([id number]) [address], [address] [place] [address] Glucose [Mass/Vol] 84 mg/dL Normal 65-99 [facility] Comment on above: Performed By: #### C BCA #### [facility] ([id number]) [address] [address] [place] [address] Potassium [Moles/Vol] 3.7 mmol/L Normal 3.5-5.0 [place] Comment on above: Performed By: #### C BCA #### [facility] ([id number]) [address] [address] [place] [address] Sodium [Moles/Vol] 143 mmol/L Normal 134-146 [facility] Comment on above: Performed By: #### C BCA #### [facility] ([id number]) [address], [address] [place] [address] Urea nitrogen [Mass/Vol] 23 mg/dL Normal 5-27 [facility] Comment on above: Performed By: #### C BCA #### [facility] ([id number]) [address] [address] [place] [address] COMPLETE BLOOD COUNTon 01-11 Erythrocyte distribution width (RBC) [Ratio] 17.0 % High 11.5-15.0 [facility] Comment on above: Performed By: #### C BCA #### [facility] ([id number]) [address] [address] [place] [address] Hematocrit (Bld) [Volume fraction] 31.8 % Low 35-47 [facility] Comment on above: Performed By: #### C BCA #### [facility] ([id number]) [address], [address] [place] [address] Hemoglobin (Bld) [Mass/Vol] 10.6 g/dL Low 11.7-15.5 [facility] Comment on above: Performed By: #### C BCA #### [facility] ([id number]) [address], [address] [place] [address] MCH (RBC) [Entitic mass] 28.7 pg Normal 27-34 [facility] Comment on above: Performed By: #### C BCA #### [facility] ([id number]) [address], [address] [place] [address] MCHC (RBC) [Mass/Vol] 33.4 g/dL Normal 32-36 [place] Comment on above: Performed By: #### C BCA #### [facility] ([id number]) [address], [address] [place] [address] MCV (RBC) [Entitic vol] 86 fL Normal 80-100 [facility] Comment on above: Performed By: #### C BCA #### [facility] ([id number]) [address], [address] [place] [address] Platelet mean volume (Bld) [Entitic vol] 7.5 fL Normal 7-12 [facility] Comment on above: Performed By: #### C BCA #### [facility] ([id number]) [address], [address] [place] [address] Platelets (Bld) [#/Vol] 367 10*3/uL Normal 150-450 [facility] Comment on above: Performed By: #### C BCA #### [facility] ([id number]) [address] [place] [address] RBC COUNT 3.69 X10E12/L Low 3.80-5.20 [facility] Comment on above: Performed By: #### C BCA #### [facility] ([id number]) [address], [address] [address] WBC (Bld) [#/Vol] 10.9 10*3/uL Normal 4.0-11.0 [facility] Comment on above: Performed By: #### C BCA #### [facility] ([id number]) [address] [address] Glucose Glucometer (BldC) [M ass/Vol]on 01-12-2024 Glucose [Mass/Vol] 82 mg/dL Normal 65-99 [facility] Glucose [Mass/Vol] 69 mg/dL Normal 65-99 [facility] Glucose [Mass/Vol] 84 mg/dL Normal 65-99 [facility] Laboratory comment Luan (Repo rt)on 01-12-2024 SARS-CoV-2 (COVID-19) RNA ELSI+probe Ql (Unsp spec) [facility] Labs Report to Follow. Normal [facility] Comment on above: Performed By: #### C BCA #### [facility] ([id number]) [address], [address] [address] MAGNESIUMon 01-12-2024 Magnesium [Mass/Vol] 2.0 mg/dL Normal 1.8-2.6 [facility] Comment on above: Performed By: #### C BCA #### [facility] ([id number]) [address] [address] SARS CoV2 by NAAT/Molecularo n 01-12-2024 SARS-CoV-2 (COVID-19) RNA ELSI+probe Ql (Resp) SARS CoV 2 Not detected (qualifier value) NOTE The Xpert Xpress SARS-CoV-2 Plus test is a real-time RT-PCR test intended for the qualitative detection of nucleic acid from the SARS-CoV-2 from individuals suspected of COVID-19 by their healthcare provider. This test has not been validated in asymptomatic patients. The Xpert Xpress SARS-CoV-2 Plus test is intended for use by qualified and trained operators who are performing tests using either [employer] or [employer] systems and is limited to laboratories that meet the CLIA requirements to perform high and moderate complexity tests. The Xpert Xpress SARS-CoV-2 Plus test is only for use under the Food and Drug Administration's Emergency Use Authorization. Results are for the detection and identification of SARS-CoV-2 RNA, which is generally detectable in upper respiratory samples during the acute phase of infection. Positive results are indicative of active infection with SARS-CoV-2; clinical correlation with patient history and other diagnostic information is necessary to determine patient infection status. Positive results do not rule out bacterial infection or co-infection with other viruses. The agent detected may not be the definite cause of disease. Negative results do not preclude SARS-CoV-2 infection and should not be used as the sole basis for treatment or other patient management decisions. Negative results must be combined with clinical observations, patient history, and epidemiological information. An Invalid Result may occur with specimen-associated inhibition unable to be resolved with specimen repeat. Fact Sheet for Healthcare Providers: https://www.fda.gov/media/1 34007/download Fact Sheet for Patients: https://www.fda.gov/media/1 02126/download Normal NDET [facility] Comment on above: Performed By: #### C BCA #### [facility] ([id number]) [address] [address] BASIC METABOLIC PANLon 01-10 Anion gap [Moles/Vol] 13 mmol/L Normal 5-15 [place] Comment on above: Performed By: #### C BCA #### [facility] ([id number]) [address] [address] Calcium [Mass/Vol] 9.1 mg/dL Normal 8.5-10.5 [facility] Comment on above: Performed By: #### C BCA #### [facility] ([id number]) [address] [place] [address] Chloride [Moles/Vol] 106 mmol/L Normal 98-109 [facility] Comment on above: Performed By: #### C BCA #### [facility] ([id number]) [address], [address] [place] [address] CO2 [Moles/Vol] 22 mmol/L Normal 22-32 [facility] Comment on above: Performed By: #### C BCA #### [facility] ([id number]) [address] [address] [place] [address] Creatinine [Mass/Vol] 0.95 mg/dL Normal 0.40-1.00 [place] Comment on above: Result Comment: METH OD TRACEABLE TO IDMS STANDARD Performed By: #### C BCA #### [facility] ([id number]) [address], [address] [place] [address] GFR/1.73 sq M.predicted among non-blacks MDRD (S/P/Bld) [Vol rate/Area] 61 mL/min/{1.73_m2} Normal >59 [facility] Comment on above: Result Comment: Reported eGFR is based on the CKD-EPI 2020 equation that does not use a race coefficient. Performed By: #### C BCA #### [facility] ([id number]) [address], [address] [place] [address] Glucose [Mass/Vol] 86 mg/dL Normal 65-99 [facility] Comment on above: Performed By: #### C BCA #### [facility] ([id number]) [address] [address] [place] [address] Potassium [Moles/Vol] 3.5 mmol/L Normal 3.5-5.0 [place] Comment on above: Performed By: #### C BCA #### [facility] ([id number]) [address], [address] [place] [address] Sodium [Moles/Vol] 141 mmol/L Normal 134-146 [facility] Comment on above: Performed By: #### C BCA #### [facility] ([id number]) [address], [address] [place] [address] Urea nitrogen [Mass/Vol] 24 mg/dL Normal 5-27 [facility] Comment on above: Performed By: #### C BCA #### [facility] ([id number]) [address], [address] [place] [address] COMPLETE BLOOD COUNTon 01-10 Erythrocyte distribution width (RBC) [Ratio] 17.2 % High 11.5-15.0 [facility] Comment on above: Performed By: #### C BCA #### [facility] ([id number]) [address], [address] [place] [address] Hematocrit (Bld) [Volume fraction] 31.1 % Low 35-47 [facility] Comment on above: Performed By: #### C BCA #### [facility] ([id number]) [address], [address] [place] [address] Hemoglobin (Bld) [Mass/Vol] 10.4 g/dL Low 11.7-15.5 [facility] Comment on above: Performed By: #### C BCA #### [facility] ([id number]) [address], [address] [place] [address] MCH (RBC) [Entitic mass] 28.6 pg Normal 27-34 [facility] Comment on above: Performed By: #### C BCA #### [facility] ([id number]) [address], [address] [place] [address] MCHC (RBC) [Mass/Vol] 33.4 g/dL Normal 32-36 [place] Comment on above: Performed By: #### C BCA #### [facility] ([id number]) [address], [address] [place] [address] MCV (RBC) [Entitic vol] 86 fL Normal 80-100 [facility] Comment on above: Performed By: #### C BCA #### [facility] ([id number]) [address], [address] [place] [address] Platelet mean volume (Bld) [Entitic vol] 7.5 fL Normal 7-12 [facility] Comment on above: Performed By: #### C BCA #### [facility] ([id number]) [address] [address] [place] [address] Platelets (Bld) [#/Vol] 382 10*3/uL Normal 150-450 [facility] Comment on above: Performed By: #### C BCA #### [facility] ([id number]) [address], [facility] [address] [place] [address] RBC COUNT 3.63 X10E12/L Low 3.80-5.20 [facility] Comment on above: Performed By: #### C BCA #### [facility] ([id number]) [address], [address] [address] WBC (Bld) [#/Vol] 9.4 10*3/uL Normal 4.0-11.0 [facility] Comment on above: Performed By: #### C BCA #### [facility] ([id number]) [address], [address] [place] [address] CEREBRAL PERF ANALYSISon 01-11-[address]IS [address] CEREBRAL PERF ANALYSIS History: Carotid artery stenosis stroke, neurologic deficit. Comparison:Brain MRI 01/10/2024. Procedure: CT brain perfusion study performed using IV contrast without complication. Examination was performed with postprocessing in the 3-D lab under concurrent supervision on an independent workstation. Parametric maps generated included mean transit time, cerebral blood volume and cerebral blood flow. Contrast: 40 mL Omnipaque 350 Findings: Image quality: Excellent Arterial input function JC selected: Left MCA Venous outflow function JC: Torcula CT perfusion characteristics: Subtle subtle prolonged Tmax left watershed territory; similar subtle prolongation of Tmax . CBF<30% volume: 0 mL Tmax>6.0s volume: 0 mL Tmax>4.0s volume: 0 mL Mismatch volume: 0 mL Mismatch ratio: none Impression: Subtle prolonged Tmax left watershed territory, site of prior ischemia on recent brain MRI All CT scans at this facility use dose modulation, iterative reconstruction, and/or weight based dosing when appropriate to reduce radiation dose to as low as reasonably achievable. Finalized by Min Fair MD on 01/10/2024 10:50 PM Normal [facility] Glucose Glucometer (BldC) [M ass/Vol]on 01-11-2024 Glucose [Mass/Vol] 76 mg/dL Normal 65-99 [facility] Glucose [Mass/Vol] 93 mg/dL Normal 65-99 [facility] Glucose [Mass/Vol] 86 mg/dL Normal 65-99 [facility] Glucose [Mass/Vol] 71 mg/dL Normal 65-99 [facility] Glucose [Mass/Vol] 75 mg/dL Normal 65-99 [facility] MAGNESIUMon 01-11-2024 Magnesium [Mass/Vol] 2.0 mg/dL Normal 1.8-2.6 [facility] Comment on above: Performed By: #### C BCA #### [facility] ([id number]) [address], [address] [place] [address] POTASSIUMon 01-11-2024 Potassium [Moles/Vol] 4.1 mmol/L Normal 3.5-5.0 [place] Comment on above: Performed By: #### C BCA #### [facility] ([id number]) [address] [place] [address] Potassium [Moles/Vol] 3.6 mmol/L Normal 3.5-5.0 [place] Comment on above: Performed By: #### C BCA #### [facility] ([id number]) [address], [address] [place] [address] BASIC METABOLIC PANLon 01-09 Anion gap [Moles/Vol] 9 mmol/L Normal 5-15 [place] Comment on above: Performed By: #### C BCA, 62966-2, BMP, 55301-3 #### [facility] ([id number]) [address], [address] [place] [address] Calcium [Mass/Vol] 9.1 mg/dL Normal 8.5-10.5 [facility] Comment on above: Performed By: #### C BCA, 97802-3, BMP, 05041-0 #### [facility] ([id number]) [address], [address] [place] [address] Chloride [Moles/Vol] 106 mmol/L Normal 98-109 [facility] Comment on above: Performed By: #### C BCA, 42304-7, BMP, 28789-8 #### [facility] ([id number]) [address], [address] [place] [address] CO2 [Moles/Vol] 23 mmol/L Normal 22-32 [facility] Comment on above: Performed By: #### C BCA, 60317-0, BMP, 63884-3 #### [facility] ([id number]) [address], [address] [place] [address] Creatinine [Mass/Vol] 0.91 mg/dL Normal 0.40-1.00 [place] Comment on above: Result Comment: METH OD TRACEABLE TO IDMS STANDARD Performed By: #### C BCA, 31837-1, BMP, 75287-8 #### [facility] ([id number]) [address] [place] [address] GFR/1.73 sq M.predicted among non-blacks MDRD (S/P/Bld) [Vol rate/Area] 64 mL/min/{1.73_m2} Normal >59 [facility] Comment on above: Result Comment: Reported eGFR is based on the CKD-EPI 2020 equation that does not use a race coefficient. Performed By: #### C BCA, 20074-6, BMP, 14794-9 #### [facility] ([id number]) [address], [address] [place] [address] Glucose [Mass/Vol] 90 mg/dL Normal 65-99 [facility] Comment on above: Performed By: #### C BCA, 11438-1, BMP, 90780-5 #### [facility] ([id number]) [address] [address] [place] [address] Potassium [Moles/Vol] 3.8 mmol/L Normal 3.5-5.0 [place] Comment on above: Performed By: #### C BCA, 21142-3, BMP, 49531-3 #### [facility] ([id number]) [address], [address] [place] [address] Sodium [Moles/Vol] 138 mmol/L Normal 134-146 [facility] Comment on above: Performed By: #### C BCA, 29468-1, BMP, 80686-4 #### [facility] ([id number]) [address] [address] [place] [address] Urea nitrogen [Mass/Vol] 21 mg/dL Normal 5-27 [facility] Comment on above: Performed By: #### C BCA, 76235-3, BMP, 49373-4 #### [facility] ([id number]) [address] [address] [place] [address] COMPLETE BLOOD COUNTon 01-09 Erythrocyte distribution width (RBC) [Ratio] 17.0 % High 11.5-15.0 [facility] Comment on above: Performed By: #### C BCA, 57323-7, BMP, 07889-9 #### [facility] ([id number]) [address] [address] [place] [address] Hematocrit (Bld) [Volume fraction] 31.1 % Low 35-47 [facility] Comment on above: Performed By: #### Vidya ARTEAGA, 65245-1, BMP, 31386-6 #### [facility] ([id number]) [address], [facility] [address] [place] [address] Hemoglobin (Bld) [Mass/Vol] 10.2 g/dL Low 11.7-15.5 [facility] Comment on above: Performed By: #### Vidya ARTEAGA, 33744-9, BMP, 41850-6 #### [facility] ([id number]) [address] [facility] [address] [place] [address] MCH (RBC) [Entitic mass] 28.1 pg Normal 27-34 [facility] Comment on above: Performed By: #### Vidya ARTEAGA, 85275-5, BMP, 14123-1 #### [facility] ([id number]) [address], [facility] [address] [place] [address] MCHC (RBC) [Mass/Vol] 32.8 g/dL Normal 32-36 [place] Comment on above: Performed By: #### Vidya ARTEAGA, 20566-3, BMP, 73563-8 #### [facility] ([id number]) [address], [facility] [address] [place] [address] MCV (RBC) [Entitic vol] 86 fL Normal 80-100 [facility] Comment on above: Performed By: #### Vidya ARTEAGA, 79067-8, BMP, 14696-7 #### [facility] ([id number]) [address], [facility] [address] [place] [address] Platelet mean volume (Bld) [Entitic vol] 7.7 fL Normal 7-12 [facility] Comment on above: Performed By: #### Vidya ARTEAGA, 56741-9, BMP, 25227-5 #### [facility] ([id number]) [address], [address] [place] [address] Platelets (Bld) [#/Vol] 392 10*3/uL Normal 150-450 [facility] Comment on above: Performed By: #### Vidya ARTEAGA, 42730-8, BMP, 57222-7 #### [facility] ([id number]) [address] [place] [address] RBC COUNT 3.63 X10E12/L Low 3.80-5.20 [facility] Comment on above: Performed By: #### Vidya ARTEAGA, 86773-1, BMP, 82291-3 #### [facility] ([id number]) [address] [place] [address] WBC (Bld) [#/Vol] 13.9 10*3/uL High 4.0-11.0 [facility] Comment on above: Performed By: #### Vidya ARTEAGA, 04928-6, BMP, 52522-1 #### [facility] ([id number]) [address] [place] [address] Glucose Glucometer ([facility]) [M ass/Vol]on 01-10-2024 Glucose [Mass/Vol] 78 mg/dL Normal 65-99 [facility] Glucose [Mass/Vol] 75 mg/dL Normal 65-99 [facility] Glucose [Mass/Vol] 83 mg/dL Normal 65-99 [facility] MAGNESIUMon 01-10-2024 Magnesium [Mass/Vol] 2.0 mg/dL Normal 1.8-2.6 [facility] Comment on above: Performed By: #### Vidya ARTEAGA, 98359-3, BMP, 83288-4 #### [facility] ([id number]) [address] [place] [address] MR BRAIN WO CONTon MR BRAIN WO CONT MR BRAIN WO CONT MRI brain: HISTORY: Right-sided weakness. CVA. Multisequence multiplanar imaging of the brain was obtained and compared to prior exam dated 01/01/2024 chronic small vessel ischemic changes noted. There is cerebral and cerebellar atrophy. The diffusion-weighted images and corresponding ADC map show small focus of diffusion restriction within the left coronal radiata, left frontal subcortical white matter, and left parietal periventricular white matter. This is also seen on prior exam dated 01/01/2024. No new focus of diffusion restriction appreciated. There is no mass or shift. No evidence of acute intracranial ischemia. Chronic small vessel anemia changes present, moderate. Ventricles are nondilated. Paranasal sinuses appear clear. IMPRESSION: Multiple small foci of subacute ischemia within the left cerebral hemisphere superimposed upon atrophy and chronic ischemic changes. Finalized by Rojas Iglesias MD on 01/10/2024 6:26 PM Normal [facility] BASIC METABOLIC PANLon 01-08 Anion gap [Moles/Vol] 9 mmol/L Normal 5-15 [place] Comment on above: Performed By: #### 1 0839-9 #### [facility] ([id number]) [address] [place] [address] Calcium [Mass/Vol] 8.9 mg/dL Normal 8.5-10.5 [facility] Comment on above: Performed By: #### 1 0839-9 #### [facility] ([id number]) [address] [place] [address] Chloride [Moles/Vol] 107 mmol/L Normal 98-109 [facility] Comment on above: Performed By: #### 1 0839-9 #### [facility] ([id number]) [address], [address] [place] [address] CO2 [Moles/Vol] 24 mmol/L Normal 22-32 [facility] Comment on above: Performed By: #### 1 0839-9 #### [facility] ([id number]) [address], [address] [place] [address] Creatinine [Mass/Vol] 0.87 mg/dL Normal 0.40-1.00 [place] Comment on above: Result Comment: METH OD TRACEABLE TO IDMS STANDARD Performed By: #### 1 0839-9 #### [facility] ([id number]) [address], [address] [place] [address] GFR/1.73 sq M.predicted among non-blacks MDRD (S/P/Bld) [Vol rate/Area] 68 mL/min/{1.73_m2} Normal >59 [facility] Comment on above: Result Comment: Reported eGFR is based on the CKD-EPI 2020 equation that does not use a race coefficient. Performed By: #### 1 0839-9 #### [facility] ([id number]) [address], [address] [place] [address] Glucose [Mass/Vol] 107 mg/dL High 65-99 [facility] Comment on above: Performed By: #### 1 0839-9 #### [facility] ([id number]) [address], [address] [place] [address] Potassium [Moles/Vol] 3.9 mmol/L Normal 3.5-5.0 [place] Comment on above: Performed By: #### 1 0839-9 #### [facility] ([id number]) [address], [address] [place] [address] Sodium [Moles/Vol] 140 mmol/L Normal 134-146 [facility] Comment on above: Performed By: #### 1 0839-9 #### [facility] ([id number]) [address], [address] [place] [address] Urea nitrogen [Mass/Vol] 14 mg/dL Normal 5-27 [facility] Comment on above: Performed By: #### 1 0839-9 #### [facility] ([id number]) [address], [address] [place] [address] COMPLETE BLOOD COUNTon 01-08 Erythrocyte distribution width (RBC) [Ratio] 16.6 % High 11.5-15.0 [facility] Comment on above: Performed By: #### 1 0839-9 #### [facility] ([id number]) [address], [address] [place] [address] Hematocrit (Bld) [Volume fraction] 32.0 % Low 35-47 [facility] Comment on above: Performed By: #### 1 0839-9 #### [facility] ([id number]) [address], [address] [place] [address] Hemoglobin (Bld) [Mass/Vol] 10.6 g/dL Low 11.7-15.5 [facility] Comment on above: Performed By: #### 1 0839-9 #### [facility] ([id number]) [address], [address] [place] [address] MCH (RBC) [Entitic mass] 28.2 pg Normal 27-34 [facility] Comment on above: Performed By: #### 1 0839-9 #### [facility] ([id number]) [address], [address] [place] [address] MCHC (RBC) [Mass/Vol] 33.0 g/dL Normal 32-36 [place] Comment on above: Performed By: #### 1 0839-9 #### [facility] ([id number]) [address], [address] [place] [address] MCV (RBC) [Entitic vol] 86 fL Normal 80-100 [facility] Comment on above: Performed By: #### 1 0839-9 #### [facility] ([id number]) [address], [address] [place] [address] Platelet mean volume (Bld) [Entitic vol] 7.5 fL Normal 7-12 [facility] Comment on above: Performed By: #### 1 0839-9 #### [facility] ([id number]) [address], [address] [place] [address] Platelets (Bld) [#/Vol] 356 10*3/uL Normal 150-450 [facility] Comment on above: Performed By: #### 1 0839-9 #### [facility] ([id number]) [address], [address] [place] [address] RBC COUNT 3.74 X10E12/L Low 3.80-5.20 [facility] Comment on above: Performed By: #### 1 0839-9 #### [facility] ([id number]) [address], [address] [address] WBC (Bld) [#/Vol] 12.7 10*3/uL High 4.0-11.0 [facility] Comment on above: Performed By: #### 1 0839-9 #### [facility] ([id number]) [address], [address] [place] [address] Calcium.ionized (Bld) [Mass/ Vol]on 01-09-2024 IONIZED CALCIUM 4.9 mg/dL Normal 4.5-5.3 [facility] Comment on above: Performed By: #### 1 0839-9 #### [facility] ([id number]) [address], [address] [place] [address] Glucose Glucometer (BldC) [M ass/Vol]on 01-09-2024 Glucose [Mass/Vol] 91 mg/dL Normal 65-99 [facility] Glucose [Mass/Vol] 117 mg/dL High 65-99 [facility] Glucose [Mass/Vol] 83 mg/dL Normal 65-99 [facility] Glucose [Mass/Vol] 101 mg/dL High 65-99 [facility] MAGNESIUMon 01-09-2024 Magnesium [Mass/Vol] 2.0 mg/dL Normal 1.8-2.6 [facility] Comment on above: Performed By: #### 1 0839-9 #### [facility] ([id number]) [address], [address] [place] [address] Magnesium Ionized ISE (Bld) [Moles/Vol]on 01-09-2024 Magnesium [Moles/Vol] 0.55 mmol/L Normal 0.45-0.74 [facility] Comment on above: Result Comment: NEW REFERENCE RANGE Performed By: #### 1 0839-9 #### [facility] ([id number]) [address], [address] [place] [address] BASIC METABOLIC PANLon 01-07 Anion gap [Moles/Vol] 5 mmol/L Normal 5-15 [facility] Comment on above: Performed By: #### C BC, BMP, 69671-1, PINR, 3274-8 ####[facility] ([id number])[address], [place] [address] Calcium [Mass/Vol] 8.5 mg/dL Normal 8.5-10.5 [facility] Comment on above: Performed By: #### C BC, BMP, 52515-3, PINR, 3274-8 ####[facility] ([id number])[address], [address] [address] Chloride [Moles/Vol] 109 mmol/L Normal 98-109 [facility] Comment on above: Performed By: #### C BC, BMP, 28008-9, PINR, 3274-8 ####[facility] ([id number])[address], [address], [place] [address] CO2 [Moles/Vol] 25 mmol/L Normal 22-32 [facility] Comment on above: Performed By: #### C BC, BMP, 78838-2, PINR, 3274-8 ####[facility] ([id number])[address], [place] [address] Creatinine [Mass/Vol] 0.94 mg/dL Normal 0.40-1.00 [place] Comment on above: Result Comment: METH OD TRACEABLE TO IDMS STANDARD Performed By: #### C BC, BMP, 04636-6, PINR, 3274-8 ####[facility] ([id number])[address] [address] GFR/1.73 sq M.predicted among non-blacks MDRD (S/P/Bld) [Vol rate/Area] 62 mL/min/{1.73_m2} Normal >59 [facility] Comment on above: Result Comment: Reported eGFR is based on the CKD-EPI 2020 equation that does not use a race coefficient. Performed By: #### C BC, BMP, , PINR, 3274-8 ####[facility] ([id number])[address] [address] [place] [address] Glucose [Mass/Vol] 125 mg/dL High 65-99 [facility] Comment on above: Performed By: #### C MOISE, BMP, , PINR, 3274-8 ####[facility] ([id number])[address] [address] [address] Potassium [Moles/Vol] 3.8 mmol/L Normal 3.5-5.0 [place] Comment on above: Performed By: #### C BC, BMP, 45702-9, PINR, 3274-8 ####[facility] ([id number])[address] [address] [address] Sodium [Moles/Vol] 139 mmol/L Normal 134-146 [facility] Comment on above: Performed By: #### C BC, BMP, 13452-7, PINR, 3274-8 ####[facility] ([id number])[address] [address], [place] [address] Urea nitrogen [Mass/Vol] 12 mg/dL Normal 5-27 [facility] Comment on above: Performed By: #### C BC, BMP, , PINR, 3273-8 ####[facility] ([id number])[address], [address] [place] [address] COMPLETE BLOOD COUNTon 01-07 Erythrocyte distribution width (RBC) [Ratio] 16.7 % High 11.5-15.0 [facility] Comment on above: Performed By: #### C BC, BMP, , PINR, 4-8 ####[facility] ([id number])[address] [address] [place] [address] Hematocrit (Bld) [Volume fraction] 23.9 % Low 35-47 [facility] Comment on above: Performed By: #### C BC, BMP, , PINR, 3273-8 ####[facility] ([id number])[address] [address], [place] [address] Hemoglobin (Bld) [Mass/Vol] 7.7 g/dL Low 11.7-15.5 [facility] Comment on above: Performed By: #### C BC, BMP, , PINR, 3273-8 ####[facility] ([id number])[address] [address] [place] [address] MCH (RBC) [Entitic mass] 28.0 pg Normal 27-34 [facility] Comment on above: Performed By: #### C BC, BMP, , PINR, 4-8 ####[facility] ([id number])[address] [address] [place] [address] MCHC (RBC) [Mass/Vol] 32.4 g/dL Normal 32-36 [place] Comment on above: Performed By: #### C BC, BMP, , PINR, 3274-8 ####[facility] ([id number])[address], [address], [place] [address] MCV (RBC) [Entitic vol] 87 fL Normal 80-100 [facility] Comment on above: Performed By: #### C BC, BMP, , PINR, 3273-8 ####[facility] ([id number])[address], [address] [place] [address] Platelet mean volume (Bld) [Entitic vol] 7.6 fL Normal 7-12 [facility] Comment on above: Performed By: #### Vidya BC, BMP, , PINR, 327-8 ####[facility] ([id number])[address], [address] [place] [address] Platelets (Bld) [#/Vol] 293 10*3/uL Normal 150-450 [facility] Comment on above: Performed By: #### Vidya BC, BMP, , PINR, 3274-8 ####[facility] ([id number])[address], [address], [place] [address] RBC COUNT 2.76 X10E12/L Low 3.80-5.20 [facility] Comment on above: Performed By: #### Vidya BC, BMP, , PINR, 3274-8 ####[facility] ([id number])[address], [address] [place] [address] WBC (Bld) [#/Vol] 9.1 10*3/uL Normal 4.0-11.0 [facility] Comment on above: Performed By: #### Vidya BC, BMP, , PINR, 3274-8 ####[facility] ([id number])[address], [address], [place] [address] Glucose Glucometer (BldC) [M ass/Vol]on 01-08-2024 Glucose [Mass/Vol] 98 mg/dL Normal 65-99 [facility] Glucose [Mass/Vol] 111 mg/dL High 65-99 [facility] Glucose [Mass/Vol] 132 mg/dL High 65-99 [facility] Glucose [Mass/Vol] 129 mg/dL High 65-99 [facility] HGB AND HCTon 01-08-2024 Hematocrit (Bld) [Volume fraction] 30.8 % Low 35-47 [facility] Comment on above: Performed By: #### 2 823-3, ####[facility] ([id number])[address], [address] [place] [address] Hemoglobin (Bld) [Mass/Vol] 10.2 g/dL Low 11.7-15.5 [facility] Comment on above: Performed By: #### 2 823-3, ####[facility] ([id number])[address], [address] [place] [address] Heparin unfractionated Chrom ogenic method Qn (PPP)on 01-08-2024 ANTI XA UFH 0.23 IU/mL Low 0.30-0.70 [facility] Comment on above: Result Comment: Opti mal time for testing is 6 hrs post dosage This test is specific for monitoring patients on UFH, and is not recommended for use with other Anti-Xa medications. Performed By: #### C KANCHAN PHIPPS, 55294-6, PINR, 3274-8 ####[facility] ([id number])[address], [address] [place] [address] MAGNESIUMon 01-08-2024 Magnesium [Mass/Vol] 2.4 mg/dL Normal 1.8-2.6 [facility] Comment on above: Performed By: #### C KANCHAN PHIPPS, 04105-3, PINR, 3274-8 ####[facility] ([id number])[address], [address] [place] [address] POTASSIUMon 01-08-2024 Potassium [Moles/Vol] 4.1 mmol/L Normal 3.5-5.0 [place] Comment on above: Performed By: #### 2 823-3, ####[facility] ([id number])[address] [place] [address] PROTIME AND INRon 01-08-2024 INR Coag (PPP) [Relative time] 0.9 {INR} Normal 0.8-1.1 [facility] Comment on above: Performed By: #### C BC, BMP, , PINR, 3274-8 ####[facility] ([id number])[address], [place] [address] PT Coag (PPP) [Time] 11.0 s Normal 9.8-13.2 [facility] Comment on above: Performed By: #### C BC, BMP, , PINR, 3274-8 ####[facility] ([id number])[address] [address] ARTERIAL BLOOD GASon 024 DEENA'S TEST Normal [facility] Comment on above: Performed By: #### B MP #### [facility] ([id number]) [address], [address] [place] [address] BASE,DEFICIT 3.0 MMOL/L High 0.0-2.0 [facility] Comment on above: Performed By: #### B MP #### [facility] ([id number]) [address], [address] [place] [address] Body temperature 98.6 [degF] Normal 37.0 [facility] Comment on above: Performed By: #### B MP #### [facility] ([id number]) [address], [address] [place] [address] HCO3 (Bld) [Moles/Vol] 21.4 mmol/L Low 22-26 P [facility] Comment on above: Performed By: #### B MP #### [facility] ([id number]) [address], [address] [place] [address] INSP. O2 CONC. 40 % Normal [facility] Comment on above: Performed By: #### B MP #### [facility] ([id number]) [address], [address] [place] [address] Oxygen (Bld) [Partial pressure] 199 mm[Hg] High 80-100 [facility] Comment on above: Performed By: #### B MP #### [facility] ([id number]) [address], [address] [place] [address] Oxygen saturation in Blood 100.0 % Normal >90 [facility] Comment on above: Performed By: #### B MP #### [facility] ([id number]) [address], [address] [place] [address] OXYGEN SOURCE Vent Normal [facility] Comment on above: Performed By: #### B MP #### [facility] ([id number]) [address], [address] [place] [address] PCO2 33.5 MMHG Low 35-45 [facility] Comment on above: Performed By: #### B MP #### [facility] ([id number]) [address], [address] [place] [address] pH (Bld) 7.413 [pH] Normal 7.350-7.45 0 [facility] Comment on above: Performed By: #### B MP #### [facility] ([id number]) [address], [address] [place] [address] SAMPLE SITE Veronika Normal [facility] Comment on above: Performed By: #### B MP #### [facility] ([id number]) [address] [place] [address] SAMPLE TYPE ARTERIAL Normal [facility] Comment on above: Performed By: #### B MP #### [facility] ([id number]) [address], [address] [place] [address] BASIC METABOLIC PANLon 01-06 Anion gap [Moles/Vol] 9 mmol/L Normal 5-15 [place] Comment on above: Performed By: #### C BC, BMP, , PINR ####[facility] ([id number])[address], [address], [place] [address] Calcium [Mass/Vol] 8.7 mg/dL Normal 8.5-10.5 [facility] Comment on above: Performed By: #### C MOISE BMP, , PINR ####[facility] ([id number])[address], [address], [place] [address] Chloride [Moles/Vol] 109 mmol/L Normal 98-109 [facility] Comment on above: Performed By: #### C MOISE, BMP, , PINR ####[facility] ([id number])[address] [address], [place] [address] CO2 [Moles/Vol] 22 mmol/L Normal 22-32 [facility] Comment on above: Performed By: #### C BC, BMP, , PINR ####[facility] ([id number])[address], [place] [address] Creatinine [Mass/Vol] 1.08 mg/dL High 0.40-1.00 [place] Comment on above: Result Comment: METH OD TRACEABLE TO IDMS STANDARD Performed By: #### C BC, BMP, , PINR ####[facility] ([id number])[address] [address] GFR/1.73 sq M.predicted among non-blacks MDRD (S/P/Bld) [Vol rate/Area] 52 mL/min/{1.73_m2} Low >59 [facility] Comment on above: Result Comment: Reported eGFR is based on the CKD-EPI 2020 equation that does not use a race coefficient. Performed By: #### C MOISE [facility], , PINR ####[facility] ([id number])[address] [address] Glucose [Mass/Vol] 89 mg/dL Normal 65-99 [facility] Comment on above: Performed By: #### Vidya PHIPPS [facility], , PINR ####[facility] ([id number])[address] [address] Potassium [Moles/Vol] 3.8 mmol/L Normal 3.5-5.0 [place] Comment on above: Performed By: #### Vidya PHIPPS [facility], , PINR ####[facility] ([id number])[address] [address] Sodium [Moles/Vol] 140 mmol/L Normal 134-146 [facility] Comment on above: Performed By: #### Vidya PHIPPS [facility], , PINR ####[facility] ([id number])[address] [address] Urea nitrogen [Mass/Vol] 13 mg/dL Normal 5-27 [facility] Comment on above: Performed By: #### Vidya PHIPPS [facility], , PINR ####[facility] ([id number])[address] [address] COMPLETE BLOOD COUNTon 01-06 Erythrocyte distribution width (RBC) [Ratio] 16.7 % High 11.5-15.0 [facility] Comment on above: Performed By: #### C MOISE BMP, , PINR ####[facility] ([id number])[address], [place] [address] Hematocrit (Bld) [Volume fraction] 24.9 % Low 35-47 [facility] Comment on above: Performed By: #### C MOISE, BMP, , PINR ####[facility] ([id number])[address], [place] [address] Hemoglobin (Bld) [Mass/Vol] 8.2 g/dL Low 11.7-15.5 [facility] Comment on above: Performed By: #### C MOISE, BMP, , PINR ####[facility] ([id number])[address], [place] [address] MCH (RBC) [Entitic mass] 28.5 pg Normal 27-34 [facility] Comment on above: Performed By: #### C MOISE, [facility], , PINR ####[facility] ([id number])[address], [place] [address] MCHC (RBC) [Mass/Vol] 33.1 g/dL Normal 32-36 [place] Comment on above: Performed By: #### C MOISE BMP, , PINR ####[facility] ([id number])[address], [place] [address] MCV (RBC) [Entitic vol] 86 fL Normal 80-100 [facility] Comment on above: Performed By: #### C MOISE, BMP, , PINR ####[facility] ([id number])[address], [place] [address] Platelet mean volume (Bld) [Entitic vol] 7.6 fL Normal 7-12 [facility] Comment on above: Performed By: #### C MOISE, [facility], [address]-3, PINR ####[facility] ([id number])[address] [address] Platelets (Bld) [#/Vol] 275 10*3/uL Normal 150-450 [facility] Comment on above: Performed By: #### C BC, [facility], 68993-9, PINR ####[facility] ([id number])[address] [address], [place] [address] RBC COUNT 2.88 X10E12/L Low 3.80-5.20 [facility] Comment on above: Performed By: #### C MOISE, [facility], , PINR ####[facility] ([id number])[address] [address] WBC (Bld) [#/Vol] 9.7 10*3/uL Normal 4.0-11.0 [facility] Comment on above: Performed By: #### C MOISE, [facility], , PINR ####[facility] ([id number])[address] [address] FL SWALLOW MOTILITY FUNCTION on 01-07-2024 FL SWALLOW MOTILITY FUNCTION FL SWALLOW MOTILITY FUNCTION STUDY: Video fluoroscopic swallow study. CLINICAL HISTORY: Oropharyngeal dysphagia COMPARISON: None. FINDINGS: Lateral videofluoroscopy performed during administration of various media by speech therapy. Fluoroscopic time was 1 minute 26 seconds. Fluoroscopic dose (reference air kerma): 2.09 mGy. 12 cine runs captured electronically without additional radiation exposure. Zero fluoroscopic spot images obtained. FINDINGS: Drinks Thin barium: Penetration Mildly thick barium: No aspiration or penetration. Food Applesauce: No aspiration or penetration. Fruit: No aspiration or penetration. Cracker: No aspiration or penetration. IMPRESSION: * Abnormal examination, as detailed * Exam completed in conjunction with speech pathology. Correlate with dedicated speech pathology report for additional details and clinical recommendations. Approved by Resident: David Mercedes DO on 01/07/2024 4:01 PM Silvina Marvin MD have personally reviewed the image(s) and agree with and/or edited the report Finalized by Silvina Rodriguez MD on 01/07/2024 4:19 PM Normal [facility] Glucose Glucometer (BldC) [M ass/Vol]on 01-07-2024 Glucose [Mass/Vol] 117 mg/dL High 65-99 [facility] Glucose [Mass/Vol] 112 mg/dL High 65-99 [facility] Glucose [Mass/Vol] 82 mg/dL Normal 65-99 [facility] Glucose [Mass/Vol] 78 mg/dL Normal 65-99 [facility] Heparin unfractionated Chrom ogenic method Qn (PPP)on 01-07-2024 ANTI XA UFH 0.38 IU/mL Normal 0.30-0.70 [facility] Comment on above: Result Comment: Opti mal time for testing is 6 hrs post dosage This test is specific for monitoring patients on UFH, and is not recommended for use with other Anti-Xa medications. Performed By: #### B MP #### [facility] ([id number]) [address], [address] [place] [address] ANTI XA UFH 0.31 IU/mL Normal 0.30-0.70 [facility] Comment on above: Result Comment: Opti mal time for testing is 6 hrs post dosage This test is specific for monitoring patients on UFH, and is not recommended for use with other Anti-Xa medications. Performed By: #### 3 274-8 ####[facility] ([id number])[address], [place] [address] MAGNESIUMon 01-07-2024 Magnesium [Mass/Vol] 2.1 mg/dL Normal 1.8-2.6 [facility] Comment on above: Performed By: #### B MP #### [facility] ([id number]) [address] [place] [address] Magnesium [Mass/Vol] 1.7 mg/dL Low 1.8-2.6 [facility] Comment on above: Performed By: #### C [facility], [facility], , PINR ####[facility] ([id number])[address], [address] [place] [id number] Nonvisit Note - PTon 024 Nonvisit Note - PT cx Pt admitted to hospital [facility] POTASSIUMon 01-07-2024 Potassium [Moles/Vol] 4.7 mmol/L Normal 3.5-5.0 [place] Comment on above: Performed By: #### B MP #### [facility] ([id number]) [address], [address] [place] [id number] PROTIME AND INRon 01-07-2024 INR Coag (PPP) [Relative time] 1.0 {INR} Normal 0.8-1.1 [facility] Comment on above: Performed By: #### C [facility], , PINR ####[facility] ([id number])[address], [address] [place] [id number] PT Coag (PPP) [Time] 11.9 s Normal 9.8-13.2 [facility] Comment on above: Performed By: #### C KANCHAN PHIPPS, , PINR ####[facility] ([id number])[address], [address] [place] [address] XR CHEST 1 VWon 01-07-2024 XR CHEST 1 VW XR CHEST 1 VW Single view chest History:resp failure Difficulty breathing, shortness of breath Comparison: 01/06/2024 Findings: Single portable view of the chest. Stable endotracheal tube and enteric catheter. Stable right jugular catheter. Stable cardiomediastinal silhouette and prior median sternotomy. Impression: Stable tubes and lines with stable appearance of the chest. Finalized by Dorys Valentino MD on 01/07/2024 5:39 AM Normal [facility] ARTERIAL BLOOD GASon 03-12-2 024 DEENA'S TEST Normal [facility] Comment on above: Performed By: #### A BG ####[facility] ([id number])[address] [place] [address] BASE,DEFICIT 4.5 MMOL/L High 0.0-2.0 [facility] Comment on above: Performed By: #### A BG ####[facility] ([id number])[address] [place] [address] Body temperature 98.6 [degF] Normal 37.0 [facility] Comment on above: Performed By: #### A BG ####[facility] ([id number])[address] [place] [address] HCO3 (Bld) [Moles/Vol] 20.6 mmol/L Low 22-26 P [facility] Comment on above: Performed By: #### A BG ####[facility] ([id number])[address] [place] [address] INSP. O2 CONC. 40 % Normal [facility] Comment on above: Performed By: #### A BG ####[facility] ([id number])[address] [place] [address] Oxygen (Bld) [Partial pressure] 194 mm[Hg] High 80-100 [facility] Comment on above: Performed By: #### A BG ####[facility] ([id number])[address] [place] [address] Oxygen saturation in Blood 100.3 % Normal >90 [facility] Comment on above: Performed By: #### A BG ####[facility] ([id number])[address] [place] [address] PCO2 34.5 MMHG Low 35-45 [facility] Comment on above: Performed By: #### A BG ####[facility] ([id number])[address] [place] [address] pH (Bld) 7.384 [pH] Normal 7.350-7.45 0 [facility] Comment on above: Performed By: #### A BG ####[facility] ([id number])[address] [place] [address] SAMPLE SITE VERONIKA Normal [facility] Comment on above: Performed By: #### A BG ####[facility] ([id number])[address] [place] [address] SAMPLE TYPE Arterial Normal [facility] Comment on above: Performed By: #### A BG ####[facility] ([id number])[address] [place] [address] DEENA'S TEST Normal [facility] Comment on above: Performed By: #### C BCA #### [facility] ([id number]) [address], [address] [place] [address] BASE,DEFICIT 6.8 MMOL/L High 0.0-2.0 [facility] Comment on above: Performed By: #### C BCA #### [facility] ([id number]) [address], [address] [place] [address] Body temperature 98.6 [degF] Normal 37.0 [facility] Comment on above: Performed By: #### C BCA #### [facility] ([id number]) [address], [address] [place] [address] HCO3 (Bld) [Moles/Vol] 18.0 mmol/L Low 22-26 P [facility] Comment on above: Performed By: #### C BCA #### [facility] ([id number]) [address], [address] [place] [address] INSP. O2 CONC. 40 % Normal [facility] Comment on above: Performed By: #### C BCA #### [facility] ([id number]) [address], [address] [place] [address] Oxygen (Bld) [Partial pressure] 198 mm[Hg] High 80-100 [facility] Comment on above: Performed By: #### C BCA #### [facility] ([id number]) [address], [address] [place] [address] Oxygen saturation in Blood 100.4 % Normal >90 [facility] Comment on above: Performed By: #### C BCA #### [facility] ([id number]) [address], [address] [place] [address] PCO2 28.9 MMHG Low 35-45 [facility] Comment on above: Performed By: #### C BCA #### [facility] ([id number]) [address], [address] [place] [address] pH (Bld) 7.403 [pH] Normal 7.350-7.45 0 [facility] Comment on above: Performed By: #### C BCA #### [facility] ([id number]) [address], [address] [place] [address] SAMPLE SITE VERONIKA Normal [facility] Comment on above: Performed By: #### C BCA #### [facility] ([id number]) [address], [address] [place] [address] SAMPLE TYPE Arterial Normal [facility] Comment on above: Performed By: #### C BCA #### [facility] ([id number]) [address], [address] [place] [address] BASIC METABOLIC PANLon 01-05 Anion gap [Moles/Vol] 8 mmol/L Normal 5-15 [place] Comment on above: Performed By: #### C BC, BMP, PINR, 72976-3 ####[facility] ([id number])[address], [address] [address] Calcium [Mass/Vol] 8.0 mg/dL Low 8.5-10.5 [facility] Comment on above: Performed By: #### C BC, BMP, PINR, 51084-1 ####[facility] ([id number])[address], [address] [address] Chloride [Moles/Vol] 109 mmol/L Normal 98-109 [facility] Comment on above: Performed By: #### C BC, BMP, PINR, 97753-0 ####[facility] ([id number])[address] [address], [place] [address] CO2 [Moles/Vol] 22 mmol/L Normal 22-32 [facility] Comment on above: Performed By: #### C BC, BMP, PINR, 29395-5 ####[facility] ([id number])[address] [address] [place] [address] Creatinine [Mass/Vol] 1.13 mg/dL High 0.40-1.00 [place] Comment on above: Result Comment: METH OD TRACEABLE TO IDMS STANDARD Performed By: #### C BC, BMP, PINR, 98945-6 ####[facility] ([id number])[address] [address] [place] [address] GFR/1.73 sq M.predicted among non-blacks MDRD (S/P/Bld) [Vol rate/Area] 49 mL/min/{1.73_m2} Low >59 [facility] Comment on above: Result Comment: Reported eGFR is based on the CKD-EPI 2020 equation that does not use a race coefficient. Performed By: #### C BC, BMP, PINR, 37245-6 ####[facility] ([id number])[address] [address] [address] Glucose [Mass/Vol] 170 mg/dL High 65-99 [facility] Comment on above: Performed By: #### C BC, BMP, PINR, 93653-5 ####[facility] ([id number])[address], [address], [place] [address] Potassium [Moles/Vol] 4.5 mmol/L Normal 3.5-5.0 [place] Comment on above: Performed By: #### C BC, BMP, PINR, 14679-8 ####[facility] ([id number])[address], [address], [place] [address] Sodium [Moles/Vol] 139 mmol/L Normal 134-146 [facility] Comment on above: Performed By: #### C BC, BMP, PINR, 72355-0 ####[facility] ([id number])[address], [address], [place] [address] Urea nitrogen [Mass/Vol] 12 mg/dL Normal 5-27 [facility] Comment on above: Performed By: #### C BC, BMP, PINR, 10217-8 ####[facility] ([id number])[address], [address], [place] [address] Anion gap [Moles/Vol] 9 mmol/L Normal 5-15 [place] Comment on above: Performed By: #### C BC, 85027-0, 95626-2, PINR, 43525-8, BMP, 46525-4, LIVR ####[facility] ([id number])[address], [address], [place] [address] Calcium [Mass/Vol] 8.4 mg/dL Low 8.5-10.5 [facility] Comment on above: Performed By: #### C BC, 93898-9, 02735-2, PINR, 05056-2, BMP, 03061-3, LIVR ####[facility] ([id number])[address], [address], [place] [address] Creatinine [Mass/Vol] 1.16 mg/dL High 0.40-1.00 [place] Comment on above: Result Comment: METH OD TRACEABLE TO IDMS STANDARD Performed By: #### C BC, 36638-7, 23325-1, PINR, 18352-4, BMP, 79941-4, LIVR ####[facility] ([id number])[address] [address] GFR/1.73 sq M.predicted among non-blacks MDRD (S/P/Bld) [Vol rate/Area] 48 mL/min/{1.73_m2} Low >59 [facility] Comment on above: Result Comment: Reported eGFR is based on the CKD-EPI 2020 equation that does not use a race coefficient. Performed By: #### C BC, 88091-5, 66021-8, PINR, 05730-1, BMP, 02558-7, LIVR ####[facility] ([id number])[address] [address] Sodium [Moles/Vol] 139 mmol/L Normal 134-146 [facility] Comment on above: Performed By: #### C BC, 95664-3, 23323-8, PINR, 91407-7, BMP, 47182-8, LIVR ####[facility] ([id number])[address] [address] Urea nitrogen [Mass/Vol] 11 mg/dL Normal 5-27 [facility] Comment on above: Performed By: #### C BC, 26683-8, 58123-7, PINR, 53636-3, BMP, 10414-0, LIVR ####[facility] ([id number])[address] [address] BEDSIDE GLUCOSE LABon 2023 Glucose [Mass/Vol] 150 mg/dL High 65-99 [facility] Comment on above: Performed By: #### C BC, 80000-8, 15625-3, PINR, 75330-6, BMP, 79544-4, LIVR ####[facility] ([id number])[address] [address] [place] [address] COMPLETE BLOOD COUNTon 01-05 Erythrocyte distribution width (RBC) [Ratio] 16.6 % High 11.5-15.0 [facility] Comment on above: Performed By: #### C BC, BMP, PINR, 10016-4 ####[facility] ([id number])[address] [address], [place] [address] Hematocrit (Bld) [Volume fraction] 28.2 % Low 35-47 [facility] Comment on above: Performed By: #### C BC, BMP, PINR, 90469-8 ####[facility] ([id number])[address] [address], [place] [address] Hemoglobin (Bld) [Mass/Vol] 9.4 g/dL Low 11.7-15.5 [facility] Comment on above: Performed By: #### C BC, BMP, PINR, 94948-7 ####[facility] ([id number])[address] [address] [place] [address] MCH (RBC) [Entitic mass] 28.2 pg Normal 27-34 [facility] Comment on above: Performed By: #### C BC, BMP, PINR, 16066-8 ####[facility] ([id number])[address] [address] [address] MCHC (RBC) [Mass/Vol] 33.1 g/dL Normal 32-36 [place] Comment on above: Performed By: #### C BC, BMP, PINR, 07304-2 ####[facility] ([id number])[address] [address] [address] MCV (RBC) [Entitic vol] 85 fL Normal 80-100 [facility] Comment on above: Performed By: #### C BC, BMP, PINR, 04516-9 ####[facility] ([id number])[address] [place] [address] Platelet mean volume (Bld) [Entitic vol] 7.3 fL Normal 7-12 [facility] Comment on above: Performed By: #### C BC, BMP, PINR, 30472-8 ####[facility] ([id number])[address] [place] [address] Platelets (Bld) [#/Vol] 375 10*3/uL Normal 150-450 [facility] Comment on above: Performed By: #### C BC, BMP, PINR, 99159-7 ####[facility] ([id number])[address] [address] [place] [address] RBC COUNT 3.32 X10E12/L Low 3.80-5.20 [facility] Comment on above: Performed By: #### C BC, BMP, PINR, 36443-2 ####[facility] ([id number])[address] [address] [place] [address] WBC (Bld) [#/Vol] 16.5 10*3/uL High 4.0-11.0 [facility] Comment on above: Performed By: #### C BC, BMP, PINR, 10476-8 ####[facility] ([id number])[address] [address] [place] [address] Erythrocyte distribution width (RBC) [Ratio] 16.6 % High 11.5-15.0 [facility] Comment on above: Performed By: #### C BC, 48118-6, 97569-3, PINR, 37052-1, BMP, 96465-1, LIVR ####[facility] ([id number])[address] [address] [place] [address] Hematocrit (Bld) [Volume fraction] 30.3 % Low 35-47 [facility] Comment on above: Performed By: #### C BC, 03539-3, 44841-9, PINR, 04157-0, BMP, 18538-2, LIVR ####[facility] ([id number])[address] [address] [place] [address] Hemoglobin (Bld) [Mass/Vol] 9.9 g/dL Low 11.7-15.5 [facility] Comment on above: Performed By: #### C BC, 51416-7, 00484-2, PINR, 99969-3, BMP, 53900-8, LIVR ####[facility] ([id number])[address] [address] [place] [address] MCH (RBC) [Entitic mass] 27.8 pg Normal 27-34 [facility] Comment on above: Performed By: #### C BC, 20737-1, 72472-6, PINR, 97601-0, BMP, 99298-0, LIVR ####[facility] ([id number])[address] [address] MCHC (RBC) [Mass/Vol] 32.6 g/dL Normal 32-36 [place] Comment on above: Performed By: #### C BC, 03630-9, 50369-6, PINR, 16937-4, BMP, 75907-1, LIVR ####[facility] ([id number])[address] [address] [place] [address] MCV (RBC) [Entitic vol] 85 fL Normal 80-100 [facility] Comment on above: Performed By: #### C BC, 58263-6, 95323-3, PINR, 39049-0, BMP, 20580-7, LIVR ####[facility] ([id number])[address] [address] Platelet mean volume (Bld) [Entitic vol] 7.4 fL Normal 7-12 [facility] Comment on above: Performed By: #### C BC, 35796-1, 69405-0, PINR, 90264-8, BMP, 13081-5, LIVR ####[facility] ([id number])[address], [address] [place] [address] Platelets (Bld) [#/Vol] 432 10*3/uL Normal 150-450 [facility] Comment on above: Performed By: #### C BC, 61847-1, 64689-6, PINR, 33496-2, BMP, 43456-2, LIVR ####[facility] ([id number])[address] [address] RBC COUNT 3.55 X10E12/L Low 3.80-5.20 [facility] Comment on above: Performed By: #### C BC, 72702-6, 68570-7, PINR, 95159-1, BMP, 47587-7, LIVR ####[facility] ([id number])[address], [address] [place] [address] WBC (Bld) [#/Vol] 18.7 10*3/uL High 4.0-11.0 [facility] Comment on above: Performed By: #### C BC, 70633-3, 55852-0, PINR, 39543-1, BMP, 67596-0, LIVR ####[facility] ([id number])[address], [address] [place] [address], [place] [address] CT BRAIN WO CONTon CT BRAIN WO CONT CT BRAIN WO CONT CT BRAIN WO CONT 01/06/2024 5:34 PM INDICATION: Neuro deficit, acute, stroke suspected COMPARISON: CT head 01/01/2024 MR brain 01/01/2024 TECHNIQUE: Noncontrast CT images of the head were obtained. All CT scans at this facility use dose modulation, iterative reconstruction, and/or weight based dosing when appropriate to reduce radiation dose to as low as reasonably achievable. FINDINGS: BRAIN: No intraparenchymal or extra-axial hemorrhage. Patent basal cisterns. No mass effect or midline shift. Meredith-white differentiation is preserved. Similar hypoattenuation within the region of the left caudate. Mild burden of nonspecific focal areas of white matter hypoattenuation, likely similar areas seen on prior MRIs increased FLAIR signal. Mild cerebral atrophy and more moderate to severe cerebellar and brainstem atrophy. Likely remote lacunar infarcts and cerebellar hemispheres. VENTRICLES: No hydrocephalus. VASCULATURE: No hyperdense major artery or major dural venous sinus. PARANASAL SINUSES: Mild paranasal sinus mucosal thickening. Small polypoid lesion within the left sphenoid sinus. TEMPORAL BONE: Well-aerated middle ears and visualized mastoid air cells. ORBITS: Unremarkable. SOFT TISSUES: The visualized head and neck soft tissues are unremarkable. OSSEOUS STRUCTURES: No displaced fracture. Unremarkable skull base. Sclerosis of bone adjacent to left mastoid. IMPRESSION: 1. No definite acute intracranial abnormality. Follow-up MRI recommended if there is concern for progression of ischemia. 2. Indeterminate sclerotic bone adjacent to left mastoid. Further evaluation with MRI brain with contrast could be considered. This may relate to Paget's disease in the absence of a clinical history of malignancy or may be due to chronic inflammation. 3. Disproportionate cerebellar and brainstem atrophy. Finalized by Mauro Pedersen DO on 01/06/2024 7:01 PM Normal [facility] CT BRAIN WO CONT CT BRAIN WO CONT CLINICAL INFORMATION: Neuro deficit, acute, stroke suspected TECHNIQUE: CT BRAIN WO CONT CT images of the brain were obtained. Chronic small vessel ischemic changes noted. 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 No acute intracranial hemorrhage. Sinuses are clear. No calvarial abnormality. IMPRESSION: Chronic ischemic changes. All CT scans at this facility use dose modulation, iterative reconstruction, and/or weight based dosing when appropriate to reduce radiation dose to as low as reasonably achievable. Finalized by Rojas Iglesias MD on 01/05/2024 10:29 PM Normal [facility] CT CEREBRAL PERF ANALYSISon 01-06-[address]YSIS [address] CEREBRAL PERF ANALYSIS HISTORY: Carotid artery stenosis. Acute neuro deficit. COMPARISON: Noncontrast head CT from earlier this evening and carotid CTA from 01/02/2024 PROCEDURE: CT brain perfusion study performed using IV contrast without complication. Examination was performed with postprocessing under concurrent physician supervision on an independent workstation. Parametric maps generated included mean transit time, cerebral blood volume, cerebral blood flow and Tmax.. FINDINGS: CBF<30% volume: 0 mL Tmax>6.0s volume: 0 mL Mismatch volume: 0 mm Mismatch ratio: None Tmax 4-6 seconds: 30 milliliters IMPRESSION: * No evidence of core infarct. * Subthreshold Tmax affecting a total volume of 30 mL in both occipital lobes and the left temporal and parietal lobes All CT scans at this facility use dose modulation, iterative reconstruction, and/or weight based dosing when appropriate to reduce radiation dose to as low as reasonably achievable. Finalized by Immanuel Mcdonnell MD on 01/05/2024 11:24 PM Normal [facility] Fibrin D-dimer DDU (PPP) [Ma ss/Vol]on 01-06-2024 D DIMER 594 ng/mL DDU High <255 [facility] Comment on above: Result Comment: Results >=255ng/mL DDU: Results may be indicative of the presence of VTE. The use of the Wells score and further diagnostic tests should be considered. Elevated D-Dimer levels can also be associated with DIC, neoplasm, , trauma and liver disease. Elevated levels of rheumatoid factor may lead to an overestimation of the D-Dimer level. Performed By: #### C , 65879-8, 99432-3, PINR, 82513-8, BMP, 34151-4, LIVR ####[facility] ([id number])[address] [facility], [address] [place] [address] Fibrinogen Coagulation.deriv ed (PPP) [Mass/Vol]on 01-06-2024 FIBRINOGEN 460 mg/dL Normal 190-480 [facility] Comment on above: Performed By: #### C BC, 15511-1, 77804-7, PINR, 90875-6, BMP, 24485-7, LIVR ####[facility] ([id number])[address], [address] [place] [address] Glucose Glucometer (BldC) [M ass/Vol]on 01-06-2024 Glucose [Mass/Vol] 82 mg/dL Normal 65-99 [facility] Glucose [Mass/Vol] 88 mg/dL Normal 65-99 [facility] Glucose [Mass/Vol] 100 mg/dL High 65-99 [facility] Glucose [Mass/Vol] 111 mg/dL High 65-99 [facility] Heparin induced platelet IgG IA [OD]on 01-06-2024 HEPARIN PF4 ANTIBODY (HIT) 0.099 OD Normal <0.4 [facility] Comment on above: Result Comment: --- O.D. Interpretation--- < 0.400 Negative >= 0.400 Positive LIVER PANELon 01-06-2024 Albumin [Mass/Vol] 2.5 g/dL Low 3.2-5.3 [facility] Comment on above: Performed By: #### C MOISE, 38956-6, 89470-1, PINR, 62240-7, BMP, 88046-2, LIVR ####[facility] ([id number])[address], [address] [place] [address] ALP [Catalytic activity/Vol] 84 U/L Normal 39-130 [facility] Comment on above: Performed By: #### C BC, 31217-7, 58321-8, PINR, 94086-2, BMP, 11372-2, LIVR ####[facility] ([id number])[address], [address] [place] [address] ALT [Catalytic activity/Vol] 17 U/L Normal 0-31 [facility] Comment on above: Performed By: #### C BC, 39451-5, 52945-1, PINR, 50435-6, BMP, 67449-5, LIVR ####[facility] ([id number])[address] [place] [address] AST [Catalytic activity/Vol] 48 U/L High 0-41 [facility] Comment on above: Performed By: #### C BC, 17681-7, 40622-9, PINR, 10705-9, BMP, 92733-7, LIVR ####[facility] ([id number])[address] [place] [address] Bilirubin [Mass/Vol] 0.6 mg/dL Normal 0.3-1.2 [facility] Comment on above: Performed By: #### C BC, 48569-5, 27492-3, PINR, 70926-2, BMP, 06236-9, LIVR ####[facility] ([id number])[address] [address] Bilirubin.direct [Mass/Vol] 0.2 mg/dL Normal 0.0-0.4 [facility] Comment on above: Performed By: #### C BC, 35346-3, 35882-8, PINR, 08489-6, BMP, 00559-8, LIVR ####[facility] ([id number])[address] [place] [address] Protein [Mass/Vol] 4.8 g/dL Low 6.0-8.0 [facility] Comment on above: Performed By: #### C BC, 82442-2, 50509-8, PINR, 48431-0, BMP, 07879-9, LIVR ####[facility] ([id number])[address] [place] [address] Lactate (P charlene) [Moles/Vol]o n 01-06-2024 Lactate [Moles/Vol] 1.4 mmol/L Normal 0.4-2.0 [facility] Comment on above: Performed By: #### 3 2132-1 ####[facility] ([id number])[address], [place] [address] LACTATE W/REFLEX 2.4 mmol/L High 0.4-2.0 [facility] Comment on above: Performed By: #### C BC, 63553-7, 95553-3, PINR, 15708-8, BMP, 85955-5, LIVR ####[facility] ([id number])[address], [address] [place] [address] PROTIME AND INRon 01-06-2024 INR Coag (PPP) [Relative time] 1.6 {INR} High 0.8-1.1 [facility] Comment on above: Performed By: #### C BC, BMP, PINR, 96084-2 ####[facility] ([id number])[address], [address], [place] [address] PT Coag (PPP) [Time] 18.6 s High 9.8-13.2 [facility] Comment on above: Performed By: #### C BC, BMP, PINR, 85384-8 ####[facility] ([id number])[address], [place] [address] INR Coag (PPP) [Relative time] 1.3 {INR} High 0.8-1.1 [facility] Comment on above: Performed By: #### C BC, 74114-2, 60294-2, PINR, 35625-4, BMP, 53657-4, LIVR ####[facility] ([id number])[address], [address], [place] [address] PT Coag (PPP) [Time] 14.8 s High 9.8-13.2 [facility] Comment on above: Performed By: #### C BC, 50143-5, 91056-6, PINR, 53194-4, BMP, 53987-4, LIVR ####[facility] ([id number])[address], [address] [place] [address] XR CHEST 1 VWon 01-06-2024 XR CHEST 1 VW XR CHEST 1 VW Clinical History: Respiratory distress. Portable Upright chest: 01/06/2024 Comparison: 01/05/2024 Findings: A single portable view of the chest was obtained. Endotracheal tube tip is in the mid trachea. The enteric tube extends the left upper abdomen. A right IJ catheter terminates in the mid SVC region. There is no confluent alveolar opacity. No pneumothorax or pleural effusion is present. IMPRESSION: Support lines and tubes in place. No acute infiltrate. Finalized by Greg Pham MD on 01/06/2024 8:06 AM Normal [facility] XR CHEST 1 VW XR CHEST 1 VW XR CHEST 1 VW HISTORY: Central line placement COMPARISON: Chest radiograph 01/05/2024 at 10:43 PM FINDINGS: Portable AP view the chest obtained. Right internal jugular central venous catheter in place with tip projecting over the SVC. Endotracheal tube in stable position with tip projecting approximately 5.5 cm above the level of the allison. Sternotomy changes with suture line along the left lateral cardiac mediastinal silhouette The cardiomediastinal silhouette is stable. No pleural effusion. No consolidation. IMPRESSION: Right internal jugular line tip projects over the SVC. Grossly no acute pulmonary abnormality within the limitations of supine technique. Please note that we cannot reliably assess for pneumothorax on supine view. If you'd like to assess for pneumothorax consider upright view if possible. Approved by Resident: Hubert Harry DO on 01/06/2024 1:45 AM Neil Marvin MD have personally reviewed the image(s) and agree with and/or edited the report Finalized by Neil Croft MD on 01/06/2024 2:07 AM Normal [facility] XR CHEST 1 VW XR CHEST 1 VW Single view chest History: ETT. Intubation. Comparison: X-ray 01/01/2024. Findings: Single portable view of the chest. Interval intubation with endotracheal tube between the clavicles and 5.3 cm above the allison. Cardiac silhouette is normal in size. Trachea midline. No focal pulmonary consolidation. No pleural effusion. No pneumothorax. Minimal left basilar atelectasis. Impression: 1. Endotracheal tube in satisfactory position. Finalized by Paulie Sanders MD on 01/05/2024 11:27 PM Normal [facility] aPTT Coag (PPP) [Time]on aPTT Coag (Bld) [Time] 54 s High 26-37 [facility] Comment on above: Performed By: #### 1 4979-9 ####[facility] ([id number])[address], [address] [place] [address], [place] [address] aPTT Coag (Bld) [Time] 53 s High 26-37 [facility] Comment on above: Performed By: #### 1 4979-9 ####[facility] ([id number])[address], [address] [address] aPTT Coag (Bld) [Time] 60 s High 26-37 [facility] Comment on above: Performed By: #### C BC, BMP, PINR, 00153-4 ####[facility] ([id number])[address], [address], [place] [address] aPTT Coag (Bld) [Time] 47 s High 26-37 [facility] Comment on above: Performed By: #### C BC, 85363-3, 94192-2, PINR, 48382-7, BMP, 18652-2, LIVR ####[facility] ([id number])[address], [address], [place] [address] BASIC METABOLIC PANLon 01-04 Anion gap [Moles/Vol] 10 mmol/L Normal 5-15 [facility] Comment on above: Performed By: #### C BCA #### [facility] ([id number]) [address], [address] [place] [address] Calcium [Mass/Vol] 9.1 mg/dL Normal 8.5-10.5 [facility] Comment on above: Performed By: #### C BCA #### [facility] ([id number]) [address] [address] Chloride [Moles/Vol] 109 mmol/L Normal 98-109 [facility] Comment on above: Performed By: #### C BC, 52879-9, 27729-3, PINR, 40219-1, BMP, 68214-8, LIVR ####[facility] ([id number])[address] [address] Performed By: #### C BCA #### [facility] ([id number]) [address] [address] CO2 [Moles/Vol] 21 mmol/L Low 22-32 [facility] Comment on above: Performed By: #### C BC, 54214-7, 67666-8, PINR, 17981-4, BMP, 99606-8, LIVR ####[facility] ([id number])[address] [address] Performed By: #### C BCA #### [facility] ([id number]) [address] [address] Creatinine [Mass/Vol] 1.11 mg/dL High 0.40-1.00 [place] Comment on above: Result Comment: METH OD TRACEABLE TO IDMS STANDARD Performed By: #### C BCA #### [facility] ([id number]) [address] [address] GFR/1.73 sq M.predicted among non-blacks MDRD (S/P/Bld) [Vol rate/Area] 51 mL/min/{1.73_m2} Low >59 [facility] Comment on above: Result Comment: Reported eGFR is based on the CKD-EPI 2020 equation that does not use a race coefficient. Performed By: #### C BCA #### [facility] ([id number]) [address], [address] [place] [address] Glucose [Mass/Vol] 75 mg/dL Normal 65-99 [facility] Comment on above: Performed By: #### C BCA #### [facility] ([id number]) [address], [facility] [address] [place] [address] Potassium [Moles/Vol] 4.6 mmol/L Normal 3.5-5.0 [place] Comment on above: Performed By: #### C BC, 80897-4, 45739-2, PINR, 78730-7, BMP, 41997-0, LIVR ####[facility] ([id number])[address], [address], [place] [address] Performed By: #### C BCA #### [facility] ([id number]) [address], [address] [place] [address] Sodium [Moles/Vol] 140 mmol/L Normal 134-146 [facility] Comment on above: Performed By: #### C BCA #### [facility] ([id number]) [address], [address] [place] [address] Urea nitrogen [Mass/Vol] 10 mg/dL Normal 5-27 [facility] Comment on above: Performed By: #### C BCA #### [facility] ([id number]) [address], [address] [place] [address] Glucose Glucometer (BldC) [M ass/Vol]on 01-05-2024 Glucose [Mass/Vol] 84 mg/dL Normal 65-99 [facility] Insurance Correspondence Off iceon 01-05-2024 Insurance Correspondence Office [phone] [id number]#[id number] Normal [facility] PLATELET COUNT AND MPVon Platelet mean volume (Bld) [Entitic vol] 7.9 fL Normal 7-12 [facility] Comment on above: Performed By: #### C BCA #### [facility] ([id number]) [address], [address] [place] [address] Platelets (Bld) [#/Vol] 516 10*3/uL High 150-450 [facility] Comment on above: Performed By: #### C BCA #### [facility] ([id number]) [address], [address] [place] [address] aPTT Coag (PPP) [Time]on aPTT Coag (Bld) [Time] 140 s Critically high 26-37 [facility] Comment on above: Performed By: #### C BCA #### [facility] ([id number]) [address], [address] [place] [address] BASIC METABOLIC PANLon 01-03 Anion gap [Moles/Vol] 8 mmol/L Normal 5-15 [place] Comment on above: Performed By: #### C BCA #### [facility] ([id number]) [address], [address] [place] [address] Calcium [Mass/Vol] 9.0 mg/dL Normal 8.5-10.5 [facility] Comment on above: Performed By: #### C BCA #### [facility] ([id number]) [address], [address] [place] [address] Chloride [Moles/Vol] 110 mmol/L High 98-109 [facility] Comment on above: Performed By: #### C BCA #### [facility] ([id number]) [address], [address] [place] [address] CO2 [Moles/Vol] 25 mmol/L Normal 22-32 [facility] Comment on above: Performed By: #### C BCA #### [facility] ([id number]) [address], [address] [place] [address] Creatinine [Mass/Vol] 1.19 mg/dL High 0.40-1.00 [place] Comment on above: Result Comment: METH OD TRACEABLE TO IDMS STANDARD Performed By: #### C BCA #### [facility] ([id number]) [address], [address] [place] [address] GFR/1.73 sq M.predicted among non-blacks MDRD (S/P/Bld) [Vol rate/Area] 47 mL/min/{1.73_m2} Low >59 [facility] Comment on above: Result Comment: Reported eGFR is based on the CKD-EPI 2020 equation that does not use a race coefficient. Performed By: #### C BCA #### [facility] ([id number]) [address], [address] [place] [address] Glucose [Mass/Vol] 76 mg/dL Normal 65-99 [facility] Comment on above: Performed By: #### C BCA #### [facility] ([id number]) [address], [address] [place] [address] Potassium [Moles/Vol] 4.5 mmol/L Normal 3.5-5.0 [place] Comment on above: Performed By: #### C BCA #### [facility] ([id number]) [address], [address] [place] [address] Sodium [Moles/Vol] 143 mmol/L Normal 134-146 [facility] Comment on above: Performed By: #### C BCA #### [facility] ([id number]) [address], [address] [place] [address] Urea nitrogen [Mass/Vol] 12 mg/dL Normal 5-27 [facility] Comment on above: Performed By: #### C BCA #### [facility] ([id number]) [address], [address] [place] [address] CBC AND AUTO DIFFon 01-04-20 24 ABSOLUTE BASOPHIL 0.0 X10E9/L Normal 0.0-0.2 [facility] Comment on above: Performed By: #### C BCA #### [facility] ([id number]) [address], [address] [place] [address] ABSOLUTE NEUTROPHIL 5.0 X10E9/L Normal 1.5-6.6 [facility] Comment on above: Performed By: #### C BCA #### [facility] ([id number]) [address], [address] [place] [address] Basophils/100 WBC (Bld) 0.4 % Normal [facility] Comment on above: Performed By: #### C BCA #### [facility] ([id number]) [address], [address] [place] [address] Eosinophils (Bld) [#/Vol] 0.3 10*3/uL Normal 0.0-0.4 [facility] Comment on above: Performed By: #### C BCA #### [facility] ([id number]) [address], [address] [place] [address] Eosinophils/100 WBC (Bld) 3.9 % Normal [facility] Comment on above: Performed By: #### C BCA #### [facility] ([id number]) [address], [address] [place] [address] Erythrocyte distribution width (RBC) [Ratio] 16.9 % High 11.5-15.0 [facility] Comment on above: Performed By: #### C BCA #### [facility] ([id number]) [address], [address] [place] [address] Hematocrit (Bld) [Volume fraction] 34.6 % Low 35-47 [facility] Comment on above: Performed By: #### C BCA #### [facility] ([id number]) [address], [address] [place] [address] Hemoglobin (Bld) [Mass/Vol] 11.2 g/dL Low 11.7-15.5 [facility] Comment on above: Performed By: #### C BCA #### [facility] ([id number]) [address], [address] [place] [address] Lymphocytes (Bld) [#/Vol] 1.5 10*3/uL Normal 1.0-3.5 [facility] Comment on above: Performed By: #### C BCA #### [facility] ([id number]) [address], [address] [place] [address] Lymphocytes/100 WBC (Bld) 19.2 % Normal [facility] Comment on above: Performed By: #### C BCA #### [facility] ([id number]) [address], [address] [place] [address] MCH (RBC) [Entitic mass] 27.9 pg Normal 27-34 [facility] Comment on above: Performed By: #### C BCA #### [facility] ([id number]) [address], [address] [place] [address] MCHC (RBC) [Mass/Vol] 32.5 g/dL Normal 32-36 [place] Comment on above: Performed By: #### C BCA #### [facility] ([id number]) [address], [address] [place] [address] MCV (RBC) [Entitic vol] 86 fL Normal 80-100 [facility] Comment on above: Performed By: #### C BCA #### [facility] ([id number]) [address], [address] [place] [address] Monocytes (Bld) [#/Vol] 0.8 10*3/uL Normal 0-0.9 [facility] Comment on above: Performed By: #### C BCA #### [facility] ([id number]) [address], [address] [place] [address] Monocytes/100 WBC (Bld) 11.0 % Normal [facility] Comment on above: Performed By: #### C BCA #### [facility] ([id number]) [address], [address] [place] [address] Neutrophils/100 WBC (Bld) 65.5 % Normal [facility] Comment on above: Performed By: #### C BCA #### [facility] ([id number]) [address], [address] [place] [address] Platelet mean volume (Bld) [Entitic vol] 7.7 fL Normal 7-12 [facility] Comment on above: Performed By: #### C BCA #### [facility] ([id number]) [address], [address] [place] [address] Platelets (Bld) [#/Vol] 326 10*3/uL Normal 150-450 [facility] Comment on above: Performed By: #### C BCA #### [facility] ([id number]) [address], [address] [place] [address] RBC COUNT 4.03 X10E12/L Normal 3.80-5.20 [facility] Comment on above: Performed By: #### C BCA #### [facility] ([id number]) [address], [address] [place] [address] WBC (Bld) [#/Vol] 7.7 10*3/uL Normal 4.0-11.0 [facility] Comment on above: Performed By: #### C BCA #### [facility] ([id number]) [address], [address] [place] [address] Glucose Glucometer (BldC) [M ass/Vol]on 01-04-2024 Glucose [Mass/Vol] 86 mg/dL Normal 65-99 [facility] Glucose [Mass/Vol] 96 mg/dL Normal 65-99 [facility] Glucose [Mass/Vol] 110 mg/dL High 65-99 [facility] Glucose [Mass/Vol] 91 mg/dL Normal 65-99 [facility] BASIC METABOLIC PANLon 01-02 Anion gap [Moles/Vol] 9 mmol/L Normal 5-15 [place] Comment on above: Performed By: #### C BCA #### [facility] ([id number]) [address], [address] [place] [address] Calcium [Mass/Vol] 9.4 mg/dL Normal 8.5-10.5 [facility] Comment on above: Performed By: #### C BCA #### [facility] ([id number]) [address], [address] [place] [address] Chloride [Moles/Vol] 109 mmol/L Normal 98-109 [facility] Comment on above: Performed By: #### C BCA #### [facility] ([id number]) [address], [address] [place] [address] CO2 [Moles/Vol] 23 mmol/L Normal 22-32 [facility] Comment on above: Performed By: #### C BCA #### [facility] ([id number]) [address], [address] [place] [address] Creatinine [Mass/Vol] 1.01 mg/dL High 0.40-1.00 [place] Comment on above: Result Comment: METH OD TRACEABLE TO IDMS STANDARD Performed By: #### C BCA #### [facility] ([id number]) [address], [address] [place] [address] GFR/1.73 sq M.predicted among non-blacks MDRD (S/P/Bld) [Vol rate/Area] 57 mL/min/{1.73_m2} Low >59 [facility] Comment on above: Result Comment: Reported eGFR is based on the CKD-EPI 2020 equation that does not use a race coefficient. Performed By: #### C BCA #### [facility] ([id number]) [address] [address] [place] [address] Glucose [Mass/Vol] 80 mg/dL Normal 65-99 [facility] Comment on above: Performed By: #### C BCA #### [facility] ([id number]) [address] [address] Potassium [Moles/Vol] 4.1 mmol/L Normal 3.5-5.0 [place] Comment on above: Performed By: #### C BCA #### [facility] ([id number]) [address] [address] [place] [address] Sodium [Moles/Vol] 141 mmol/L Normal 134-146 [facility] Comment on above: Performed By: #### C BCA #### [facility] ([id number]) [address] [address] Urea nitrogen [Mass/Vol] 13 mg/dL Normal 5-27 [facility] Comment on above: Performed By: #### C BCA #### [facility] ([id number]) [address] [address] C Urineon 01-03-2024 Bacteria identified Cx Nom (U) Microbiology PROCEDURE: Urine Culture [R1] SOURCE: U CleanCatch BODY SITE: COLLECTED DATE/TIME: 01/01/2024 08:42 EST RECEIVED DATE/TIME: 01/01/2024 11:12 EST START DATE/TIME: 01/01/2024 11:12 EST FREE TEXT SOURCE: Benjamín Ibanez DO, DO, Kevin M. FINAL REPORTS Final Report [] Verified Date/Time: 01/03/2024 07:22 EST 75,000 cfu/ml Viridans Streptococcus Group Presumptive isolated. Therapeutic Options: Penicillin or ceftriaxone, with or without an aminoglycoside; vancomycin is used in cases of penicillin allergies and beta-lactam resistance. 100 cfu/ml Mixed skin contaminants Performing Locations R1: This test was performed at: [facility], [address] [place] [address], [address] , , Normal [facility] Comment on above: Performed By: #### 2 [id number], [id number] ####[facility] [address] [place] [address] CBC AND AUTO DIFFon 01-03-20 24 ABSOLUTE BASOPHIL 0.1 X10E9/L Normal 0.0-0.2 [facility] Comment on above: Performed By: #### C CHANDLER, 61902-7, BMP, 79749-1 #### [facility] ([id number]) [address], [address] [place] [address] ABSOLUTE NEUTROPHIL 6.8 X10E9/L High 1.5-6.6 [facility] Comment on above: Performed By: #### Vidya ARTEAGA, 14279-4, BMP, 80209-3 #### [facility] ([id number]) [address] [address] Basophils/100 WBC (Bld) 0.6 % Normal [facility] Comment on above: Performed By: #### Vidya BCA, 12106-8, BMP, 18840-6 #### [facility] ([id number]) [address] [address] [place] [address] Eosinophils (Bld) [#/Vol] 0.1 10*3/uL Normal 0.0-0.4 [facility] Comment on above: Performed By: #### Vidya BCA, 90526-6, BMP, 70898-3 #### [facility] ([id number]) [address], [address] [place] [address] Eosinophils/100 WBC (Bld) 1.6 % Normal [facility] Comment on above: Performed By: #### Vidya ARTEAGA, 63601-8, BMP, 36822-0 #### [facility] ([id number]) [address], [facility] [address] [place] [address] Erythrocyte distribution width (RBC) [Ratio] 16.9 % High 11.5-15.0 [facility] Comment on above: Performed By: #### C CHANDLER, 28403-9, BMP, 95280-6 #### [facility] ([id number]) [address], [facility] [address] [place] [address] Hematocrit (Bld) [Volume fraction] 39.9 % Normal 35-47 [facility] Comment on above: Performed By: #### Vidya ARTEAGA, 35201-5, BMP, 60842-7 #### [facility] ([id number]) [address], [facility] [address] [place] [address] Hemoglobin (Bld) [Mass/Vol] 13.0 g/dL Normal 11.7-15.5 [facility] Comment on above: Performed By: #### Vidya ARTEAGA, 75661-8, BMP, 20355-7 #### [facility] ([id number]) [address] [address] [place] [address] Lymphocytes (Bld) [#/Vol] 1.5 10*3/uL Normal 1.0-3.5 [facility] Comment on above: Performed By: #### Vidya BCA, 15502-2, BMP, 44678-8 #### [facility] ([id number]) [address] [address] [place] [address] Lymphocytes/100 WBC (Bld) 16.4 % Normal [facility] Comment on above: Performed By: #### Vidya BCA, 10511-5, BMP, 23947-7 #### [facility] ([id number]) [address], [address] [place] [address] MCH (RBC) [Entitic mass] 28.1 pg Normal 27-34 [facility] Comment on above: Performed By: #### Vidya BCA, 60746-7, BMP, 86030-8 #### [facility] ([id number]) [address], [address] [place] [address] MCHC (RBC) [Mass/Vol] 32.6 g/dL Normal 32-36 [place] Comment on above: Performed By: #### Vidya BCA, 39142-2, BMP, 98008-0 #### [facility] ([id number]) [address], [address] [place] [address] MCV (RBC) [Entitic vol] 86 fL Normal 80-100 [facility] Comment on above: Performed By: #### Vidya BCA, 35627-8, BMP, 44011-0 #### [facility] ([id number]) [address] [place] [address] Monocytes (Bld) [#/Vol] 0.7 10*3/uL Normal 0-0.9 [facility] Comment on above: Performed By: #### Vidya BCA, 88167-3, BMP, 85868-1 #### [facility] ([id number]) [address] [place] [address] Monocytes/100 WBC (Bld) 7.5 % Normal [facility] Comment on above: Performed By: #### Vidya BCA, 60691-4, BMP, 51618-3 #### [facility] ([id number]) [address] [place] [address] Neutrophils/100 WBC (Bld) 73.9 % Normal [facility] Comment on above: Performed By: #### Vidya BCA, 04909-1, BMP, 24709-4 #### [facility] ([id number]) [address] [place] [address] Platelet mean volume (Bld) [Entitic vol] 7.6 fL Normal 7-12 [facility] Comment on above: Performed By: #### C BCA, 00685-7, BMP, 41334-6 #### [facility] ([id number]) [address], [facility] [address] [place] [address] Platelets (Bld) [#/Vol] 453 10*3/uL High 150-450 [facility] Comment on above: Performed By: #### C BCA, 01614-9, BMP, 16735-6 #### [facility] ([id number]) [address], [facility] [address] [place] [address] RBC COUNT 4.63 X10E12/L Normal 3.80-5.20 [facility] Comment on above: Performed By: #### Vidya BCA, 98655-8, BMP, 72341-4 #### [facility] ([id number]) [address], [facility] [address] [place] [address] WBC (Bld) [#/Vol] 9.3 10*3/uL Normal 4.0-11.0 [facility] Comment on above: Performed By: #### Vidya BCA, 65316-6, BMP, 95311-8 #### [facility] ([id number]) [address] [place] [address] CT CTA CAROTIDon 01-03-[address] CTA CAROTID Indication: Fall new onset right-sided weakness and aphasia. TECHNIQUE: Enhanced CTA of the carotid arteries is performed utilizing 100 mL IV Omnipaque 350 contrast medium. Multiple 3-D maximum intensity projection images are rendered and reviewed. No prior comparison. FINDINGS: Lung apices are clear. Visualized thoracic aorta shows normal caliber. Great vessel origins are patent. Some calcification noted at left subclavian artery origin. Left vertebral artery arises independently from aortic arch. Nodular appearance to right thyroid present largest nodule measures 1 cm. Common carotid arteries are widely patent. Heavy calcification at the left internal carotid artery origin extends over a length of 13 mm and causes high-grade stenosis. Internal carotid arteries are then patent into the head. Mild calcification at right internal carotid artery origin causes mild stenosis. Some kinking within proximal right internal carotid artery noted coronal image 40. Vertebral arteries are small with multiple apparent areas of narrowing in the right vertebral artery greatest at the C1-2 level appears high-grade. Visualized soft tissues grossly symmetric apart from left thyroid. Bone windows show degenerative change. IMPRESSION: 1. Extensive calcific plaque causing high-grade stenosis proximal left internal carotid artery. Nascet criteria was utilized. Only mild narrowing origin right internal carotid artery. 2. Multiple focal areas of narrowing within right vertebral artery with very high-grade stenosis and/or occlusion distally at C1 and C2. Dissection is not excluded on this exam. No prior comparison. 3. Nodularity of right thyroid which could be better evaluated by ultrasound as clinically prudent. Largest nodule measures [address] scans at this facility use dose modulation, iterative reconstruction, and/or weight based dosing when appropriate to reduce radiation dose to as low as reasonably achievable. Finalized by Margaret Hardy MD on 01/02/2024 10:46 PM Normal [facility] Glucose Glucometer (BldC) [M ass/Vol]on 01-03-2024 Glucose [Mass/Vol] 108 mg/dL High 65-99 [facility] Glucose [Mass/Vol] 123 mg/dL High 65-99 [facility] Glucose [Mass/Vol] 65 mg/dL Normal 65-99 [facility] Lipid 1996 panelon 4 Cholesterol [Mass/Vol] 136 mg/dL Low 150-200 [facility] Comment on above: Performed By: #### C BCA #### [facility] ([id number]) [address], [address] [place] [address] Cholesterol in HDL [Mass/Vol] 47 mg/dL Normal >39 [facility] Comment on above: Result Comment: HDL <40 mg/dL - High Risk HDL > or = 40mg/dL- Desirable HDL >60 mg/dL - Negative Risk Performed By: #### C BCA #### [facility] ([id number]) [address], [address] [place] [address] Cholesterol in LDL [Mass/Vol] 69 mg/dL Normal <130 [facility] Comment on above: Result Comment: LDL <100 mg/dL - Desirable LDL >160 mg/dL - High Risk Performed By: #### C BCA #### [facility] ([id number]) [address], [address] [place] [address] Cholesterol in VLDL [Mass/Vol] 20 mg/dL Normal 0-30 [facility] Comment on above: Performed By: #### C BCA #### [facility] ([id number]) [address], [address] [place] [address] CHOLESTEROL:HDL 2.9 Normal 1.0-5.0 [facility] Comment on above: Performed By: #### C BCA #### [facility] ([id number]) [address], [address] [place] [address] Triglyceride [Mass/Vol] 98 mg/dL Normal 27-150 [facility] Comment on above: Performed By: #### C BCA #### [facility] ([id number]) [address], [address] [place] [address] TROPONIN Ion 01-03-2024 Troponin I.cardiac [Mass/Vol] 0.02 ng/mL Normal 0.00-0.04 [facility] Comment on above: Performed By: #### C BCA #### [facility] ([id number]) [address], [address] [place] [address] Troponin I.cardiac [Mass/Vol] 0.02 ng/mL Normal 0.00-0.04 [facility] Comment on above: Performed By: #### 1 0839-9 #### [facility] ([id number]) [address], [address] [place] [address] ABO/Rh History Checkon 01-01 ABO/Rh History Check Patient discharged prior Normal [facility] Comment on above: Performed By: #### 1 [id number], [id number], [id number], [id number] ####[facility] [address] [place] [address] BASIC METABOLIC PANLon 01-01 Anion gap [Moles/Vol] 8 mmol/L Normal 5-15 [place] Comment on above: Performed By: #### B MP #### [facility] ([id number]) [address], [address] [place] [address] Calcium [Mass/Vol] 8.9 mg/dL Normal 8.5-10.5 [facility] Comment on above: Performed By: #### B MP #### [facility] ([id number]) [address], [address] [place] [address] Chloride [Moles/Vol] 109 mmol/L Normal 98-109 [facility] Comment on above: Performed By: #### B MP #### [facility] ([id number]) [address], [address] [place] [address] CO2 [Moles/Vol] 22 mmol/L Normal 22-32 [facility] Comment on above: Performed By: #### B MP #### [facility] ([id number]) [address], [address] [place] [address] Creatinine [Mass/Vol] 0.87 mg/dL Normal 0.40-1.00 [place] Comment on above: Result Comment: METH OD TRACEABLE TO IDMS STANDARD Performed By: #### B MP #### [facility] ([id number]) [address] [place] [address] GFR/1.73 sq M.predicted among non-blacks MDRD (S/P/Bld) [Vol rate/Area] 68 mL/min/{1.73_m2} Normal >59 [facility] Comment on above: Result Comment: Reported eGFR is based on the CKD-EPI 2020 equation that does not use a race coefficient. Performed By: #### B MP #### [facility] ([id number]) [address] [place] [address] Glucose [Mass/Vol] 108 mg/dL High 65-99 [facility] Comment on above: Performed By: #### B MP #### [facility] ([id number]) [address] [place] [address] Potassium [Moles/Vol] 4.1 mmol/L Normal 3.5-5.0 [place] Comment on above: Performed By: #### B MP #### [facility] ([id number]) [address] [address] [place] [address] Sodium [Moles/Vol] 139 mmol/L Normal 134-146 [facility] Comment on above: Performed By: #### B MP #### [facility] ([id number]) [address] [address] Urea nitrogen [Mass/Vol] 13 mg/dL Normal 5-27 [facility] Comment on above: Performed By: #### B MP #### [facility] ([id number]) [address] [address] [address] [place] [address] CBC AND AUTO DIFFon 01-02-20 24 ABSOLUTE BASOPHIL 0.0 X10E9/L Normal 0.0-0.2 [facility] Comment on above: Performed By: #### C BCA #### [facility] ([id number]) [address] [place] [address] ABSOLUTE NEUTROPHIL 7.3 X10E9/L High 1.5-6.6 [facility] Comment on above: Performed By: #### C BCA #### [facility] ([id number]) [address], [address] [place] [address] Basophils/100 WBC (Bld) 0.4 % Normal [facility] Comment on above: Performed By: #### C BCA #### [facility] ([id number]) [address], [address] [place] [address] Eosinophils (Bld) [#/Vol] 0.2 10*3/uL Normal 0.0-0.4 [facility] Comment on above: Performed By: #### C BCA #### [facility] ([id number]) [address], [address] [place] [address] Eosinophils/100 WBC (Bld) 1.8 % Normal [facility] Comment on above: Performed By: #### C BCA #### [facility] ([id number]) [address], [address] [place] [address] Erythrocyte distribution width (RBC) [Ratio] 17.0 % High 11.5-15.0 [facility] Comment on above: Performed By: #### C BCA #### [facility] ([id number]) [address], [address] [place] [address] Hematocrit (Bld) [Volume fraction] 38.0 % Normal 35-47 [facility] Comment on above: Performed By: #### C BCA #### [facility] ([id number]) [address], [address] [place] [address] Hemoglobin (Bld) [Mass/Vol] 12.3 g/dL Normal 11.7-15.5 [facility] Comment on above: Performed By: #### C BCA #### [facility] ([id number]) [address], [address] [place] [address] Lymphocytes (Bld) [#/Vol] 0.8 10*3/uL Low 1.0-3.5 [facility] Comment on above: Performed By: #### C BCA #### [facility] ([id number]) [address], [address] [place] [address] Lymphocytes/100 WBC (Bld) 9.1 % Normal [facility] Comment on above: Performed By: #### C BCA #### [facility] ([id number]) [address], [address] [place] [address] MCH (RBC) [Entitic mass] 28.2 pg Normal 27-34 [facility] Comment on above: Performed By: #### C BCA #### [facility] ([id number]) [address], [address] [place] [address] MCHC (RBC) [Mass/Vol] 32.5 g/dL Normal 32-36 [facility] Comment on above: Performed By: #### C BCA #### [facility] ([id number]) [address], [address] [place] [address] MCV (RBC) [Entitic vol] 87 fL Normal 80-100 [facility] Comment on above: Performed By: #### C BCA #### [facility] ([id number]) [address], [address] [place] [address] Monocytes (Bld) [#/Vol] 0.6 10*3/uL Normal 0-0.9 [facility] Comment on above: Performed By: #### C BCA #### [facility] ([id number]) [address], [address] [place] [address] Monocytes/100 WBC (Bld) 6.6 % Normal [facility] Comment on above: Performed By: #### C BCA #### [facility] ([id number]) [address], [address] [place] [address] Neutrophils/100 WBC (Bld) 82.1 % Normal [facility] Comment on above: Performed By: #### C BCA #### [facility] ([id number]) [address], [address] [place] [address] Platelet mean volume (Bld) [Entitic vol] 7.5 fL Normal 7-12 [facility] Comment on above: Performed By: #### C BCA #### [facility] ([id number]) [address], [address] [place] [address] Platelets (Bld) [#/Vol] 371 10*3/uL Normal 150-450 [facility] Comment on above: Performed By: #### C BCA #### [facility] ([id number]) [address], [address] [place] [address] RBC COUNT 4.38 X10E12/L Normal 3.80-5.20 [facility] Comment on above: Performed By: #### C BCA #### [facility] ([id number]) [address], [address] [place] [address] WBC (Bld) [#/Vol] 8.9 10*3/uL Normal 4.0-11.0 [facility] Comment on above: Performed By: #### C BCA #### [facility] ([id number]) [address], [address] [place] [address] Glucose Glucometer (dC) [M ass/Vol]on 01-02-2024 Glucose [Mass/Vol] 111 mg/dL High 65-99 [facility] Glucose [Mass/Vol] 68 mg/dL Normal 65-99 [facility] Glucose [Mass/Vol] 72 mg/dL Normal 65-99 [facility] Glucose [Mass/Vol] 78 mg/dL Normal 65-99 [facility] HGB A1C (GLYCO-HGB)on 2023 Glucose [Mass/Vol] 105 mg/dL Normal [facility] Comment on above: Performed By: #### C BCA #### [facility] ([id number]) [address] [place] [address], [address] [place] [address] HbA1c (Bld) [Mass fraction] 5.3 % Normal 4.4-5.6 [facility] Comment on above: Result Comment: NOTE ADA Guidelines Result HgbA1c Normal : less than 5.7 % Prediabetes : 5.7 % to 6.4 % Diabetes : > 6.4 % Use with caution in patients with abnormal hemoglobin variants as the half-life of red blood cells and in vivo glycation rates are affected. Performed By: #### C BCA #### [facility] ([id number]) [address] [place] [address], [address] [place] [address] Insurance Correspondence Off iceon 01-02-2024 Insurance Correspondence Office [id number]#1.00TIFF Normal [facility] Monitor Recordon 01-02-2024 Monitor Record [id number]#1.00TIFF Normal [facility] Monitor Record [id number]#1.00TIFF Normal [facility] Progress Note-Physicianon Progress Note-Physician 1239- Call placed to [facility] for transfer of neurologic care. Spoke with Dr. Chicas with neuro intervention. He would like to evaluate her MRI scans to determine plan of action and we will reconference. Normal [facility] Comment on above: Result Comment: Elec tronically Signed By: Flor Poole\.br\Date and Time Signed: 01/01/24 12:55 EST\.br\Electronically Co-Signed By: Kevin TAMEZ, Daniel\.br\Date and Time Co-Signed: 01/02/24 13:52 EST Transfer Documentson 024 Transfer Documents [id number]#1.00TIFF Normal [facility] ABO/Rhon 01-01-2024 ABO/Rh Negative Invalid Interpretation Code [facility] Comment on above: Performed By: #### 1 [id number], 04601792, 5905020, 13955280 ####[facility] [address] [place] [address] ABSCon 01-01-2024 ABSC Gel Interp Negative Normal [facility] Comment on above: Performed By: #### 1 0588693, 57086183, 7812953, 80561847 ####[facility] [address] [place] [address] BLOOD BANKOrdered By: Tootie Yancey on 01-01-2024 ABO/Rh Interp Negative Invalid Interpretation Code [facility] BB Subsection ABSC Gel Interp Negative (01/01/24 6:42 AM) Normal [facility] BB Subsection Blood Bank ID#on 01-01-2024 BBID# [id number] Invalid Interpretation Code [facility] Comment on above: Performed By: #### 1 0180890, 90882878, 3572424, 42391067 ####[facility] [address] [place] [address] CBC w/Indiceson 01-01-2024 Erythrocyte distribution width (RBC) [Ratio] 17.1 % High 10.9-14.2 [facility] Comment on above: Performed By: #### 1 6582767, 1935538, 3837241, 39433809, 4282681, 0299600 ####[facility] [address] [place] [address] Hematocrit (Bld) [Volume fraction] 40.3 % Normal 34.0-46.0 [facility] Comment on above: Performed By: #### 1 4913426, 1214636, 9325224, 93416492, 3746712, 1922673 ####[facility] [address] [place] [address] Hemoglobin (Bld) [Mass/Vol] 12.7 g/dL Normal 12.0-16.0 [facility] Comment on above: Performed By: #### 1 1739395, 6693622, 6570999, 73980290, 1506575, 5884693 ####[place] [address] [place] [address]657 MCH (RBC) [Entitic mass] 27.3 pg Normal 27.0-34.0 [facility] Comment on above: Performed By: #### 1 5780811, 9264838, 4388167, 90123578, 3527790, 1627491 ####[place] [address]157 MCHC (RBC) [Mass/Vol] 31.6 g/dL Normal 31.4-36.0 [facility] Comment on above: Performed By: #### 1 9615109, 0533425, 6515564, 30266093, 3745779, 0476166 ####[place] [address]157 MCV (RBC) [Entitic vol] 86.4 fL Normal 80.0-100.0 [facility] Comment on above: Performed By: #### 1 4506604, 5713741, 7265139, 41664852, 9603195, 1348137 ####[place] 9335157 Platelet 485.0 E9/L Normal 150.0-500. 0 [facility] Comment on above: Performed By: #### 1 9606927, 6521086, 2511332, 70004710, 2851800, 5622728 ####[place] [address]335157 Platelet mean volume (Bld) [Entitic vol] 7.3 fL Normal 6.4-10.8 [facility] Comment on above: Performed By: #### 1 9569588, 5402967, 8437371, 28981633, 0245580, 0879179 ####[facility] [address] [place] [address] RBC (Bld) [#/Vol] 4.7 E12/L Normal 4.3-5.9 [facility] Comment on above: Performed By: #### 1 9028841, 1532627, 0364327, 37008693, 6429498, 1195670 ####[facility] [address] [place] [address] RBC size Nom (Bld) NORMAL Invalid Interpretation Code [facility] Comment on above: Performed By: #### 1 1926706, 1354560, 4952989, 55905156, 0012688, 5977841 ####[facility] [address] [place] [address] WBC corrected for nucl RBC Auto (Bld) [#/Vol] 10.2 E9/L Normal 4.0-11.0 [facility] Comment on above: Performed By: #### 1 1028112, 1774257, 2731428, 03628959, 6325908, 0982673 ####[facility] [address] [place] [address] CHEMISTRYOrdered By: Lab ROP User on 01-01-2024 Glucose [Mass/Vol] 154 mg/dL High 55 - 99 mg/dL [facility] POC Subsection Comment on above: Result Comment: Zhao chavez RN/ POC Device SN [id number] 1 Invalid Interpretation Code [facility] POC Subsection POC User ID [id number] 1 Invalid Interpretation Code [facility] POC Subsection POC Username CARMELINA ROMAN Invalid Interpretation Code [facility] POC Subsection CHEMISTRYOrdered By: SYSTEM SYSTEM on 01-01-2024 Albumin [Mass/Vol] 3.4 g/dL Normal 3.3 - 5.0 gm/dL [facility] Albumin/Globulin [Mass ratio] 1.0 {ratio} Low 1.1 - 2.2 [facility] ALP [Catalytic activity/Vol] 91 [iU]/d Normal 21 - 98 Int._Unit/ L [facility] ALT No additional P-5'-P [Catalytic activity/Vol] 7 [iU]/d Normal 6 - 46 Int._Unit/ L [facility] Anion gap [Moles/Vol] 13 mmol/L Normal 6 - 16 mEq/L [facility] AST [Catalytic activity/Vol] 12 [iU]/d Normal 5 - 43 Int._Unit/ L [facility] Bilirubin [Mass/Vol] 0.7 mg/dL Normal 0.0 - 1 .1 mg/dL [facility] Calcium [Mass/Vol] 9.7 mg/dL Normal 8.9 - 11. 1 mg/dL [facility] Chloride [Moles/Vol] 108 mmol/L Normal 101 - 1 11 mmol/L [facility] CO2 [Moles/Vol] 23 mmol/L Normal 21 - 31 mmol/L [facility] Creatinine [Mass/Vol] 1.0 mg/dL Normal 0.5 - 1.3 mg/dL [facility] eGFR 57 mL/min/1.73 m2 Low >=59mL/min /1.73 m2 [facility] Globulin (S) [Mass/Vol] 3.4 g/dL Normal 1.4 - 4.0 gm/dL [facility] Glucose [Mass/Vol] 89 mg/dL Normal 55 - 199 mg/dL [facility] Potassium [Moles/Vol] 4.5 mmol/L Normal 3.5 - 5.3 mmol/L [facility] Protein [Mass/Vol] 6.8 g/dL Normal 6.0 - 7.8 gm/dL [facility] Sodium [Moles/Vol] 139 mmol/L Normal 135 - 145 mmol/L [facility] Troponin 11.30 pg/mL Normal 10.10 - 27.10 pg/mL [facility] Comment on above: Interpretive Data: T he 95% CI (Confidence Interval) PPV (Positive Predictive Value) for myocardial infarction in females is 38 pg/mL, in males 51 pg/mL. The results should be used in conjunction with clinical conditions of myocardial infarction. (Access High Sensitivity Troponin I Instructions For Use, Zhang Shabnam, May 2018) Urea nitrogen [Mass/Vol] 12 mg/dL Normal 5 - 21 mg/dL [facility] Urea nitrogen/Creatinine [Mass ratio] 12 mg/mg Normal 10 - 20 [facility] CMPon 01-01-2024 Albumin [Mass/Vol] 3.4 g/dL Normal 3.3-5.0 [facility] Comment on above: Performed By: #### 1 9804632, 0407796, 7853474, 80943688, 1054983, 4398817 ####[facility] [address] [place] [address] Albumin/Globulin (S) [Mass conc ratio] 1.0 Low 1.1-2.2 [facility] Comment on above: Performed By: #### 1 3301880, 8516318, 5780839, 14250555, 6966371, 1647370 ####[facility] [address] [place] [address] ALP [Catalytic activity/Vol] 91 Int._Unit/L Normal 21-98 [facility] Comment on above: Performed By: #### 1 4713143, 8702395, 0192752, 83158526, 5813531, 6838018 ####[facility] [address] [place] [address] ALT No additional P-5'-P [Catalytic activity/Vol] 7 Int._Unit/L Normal 6-46 [facility] Comment on above: Performed By: #### 1 1659034, 7100738, 9853292, 42727078, 9383371, 1047939 ####[facility] [address] [place] [address] Anion gap [Moles/Vol] 13 mmol/L Normal 6-16 [facility] Comment on above: Performed By: #### 1 9381629, 5833779, 4728646, 56916661, 8964147, 1866871 ####[facility] [address] [place] [address] AST [Catalytic activity/Vol] 12 Int._Unit/L Normal 5-43 [facility] Comment on above: Performed By: #### 1 8737383, 2794648, 4564428, 62689167, 3400017, 7344360 ####[facility] [address] [place] [address] Bilirubin [Mass/Vol] 0.7 mg/dL Normal 0.0-1.1 [facility] Comment on above: Performed By: #### 1 9029137, 2001623, 0162772, 64418484, 2988656, 2964723 ####[facility] [address] [place] [address] Calcium [Mass/Vol] 9.7 mg/dL Normal 8.9-11.1 [facility] Comment on above: Performed By: #### 1 1990652, 5963741, 5376259, 13885141, 2772320, 5172586 ####[facility] [address] [place] [address] Chloride [Moles/Vol] 108 mmol/L Normal 101-111 [facility] Comment on above: Performed By: #### 1 3922715, 3377940, 4894635, 24348086, 8567540, 3073114 ####[facility] [address] [place] [address] CO2 [Moles/Vol] 23 mmol/L Normal 21-31 [facility] Comment on above: Performed By: #### 1 0481542, 3291477, 4384403, 47726823, 4603290, 5844958 ####[facility] [address] [place] [address] Creatinine [Mass/Vol] 1.0 mg/dL Normal 0.5-1.3 [facility] Comment on above: Performed By: #### 1 7636460, 4109872, 6649979, 56889697, 2048443, 2690513 ####[facility] [address] [place] [address] Globulin (S) [Mass/Vol] 3.4 g/dL Normal 1.4-4.0 [facility] Comment on above: Performed By: #### 1 4955036, 6044116, 3107185, 57326853, 6361871, 4488984 ####[facility] [address] [place] [address] Glucose [Mass/Vol] 89 mg/dL Normal 55-199 [facility] Comment on above: Performed By: #### 1 4725739, 3663072, 2504514, 70234223, 8295055, 6251154 ####[facility] [address] [place] [address] Potassium [Moles/Vol] 4.5 mmol/L Normal 3.5-5.3 [facility] Comment on above: Performed By: #### 1 2950215, 3443200, 9479817, 59585263, 9016752, 0596552 ####[facility] [address] [place] [address] Protein [Mass/Vol] 6.8 g/dL Normal 6.0-7.8 [facility] Comment on above: Performed By: #### 1 4751925, 8292521, 4487987, 05394602, 1237139, 6298581 ####[facility] [address] [place] [address] Sodium [Moles/Vol] 139 mmol/L Normal 135-145 [facility] Comment on above: Performed By: #### 1 4875949, 1311052, 5711902, 68684107, 9102921, 6087359 ####[facility] [address] [place] [address] Urea nitrogen [Mass/Vol] 12 mg/dL Normal 5-21 [facility] Comment on above: Performed By: #### 1 8037247, 9883732, 8295200, 50939739, 5073052, 7807796 ####[facility] [address] [place] [address] Urea nitrogen/Creatinine [Mass ratio] 12 No Units Normal 10-20 [facility] Comment on above: Performed By: #### 1 0888809, 5792806, 0000371, 56416544, 2102110, 9187876 ####[facility] [address] [place] [address] COAGULATIONOrdered By: Juana Mitchell on 03-07-2024 aPTT Coag (PPP) [Time] 37.2 s High 25.1 - 36.5 second(s) [facility] Comment on above: Interpretive Data: Juan Luis carlos 15 days - 4 weeks 1 - 5 months 6 - 11 months 1 - 5 years 6 - 10 years 11 - 17 years PTT Mean: 35.4 (27.6-45.6) Mean: 33.5 (24.8-40.7) Mean: 32.4 (25.1-40.7) Mean: 31.6 (24.0-39.2) Mean: 31.6 (26.9-38.7) Mean: 31.0 (24.6-38.4) Pediatric Reference ranges were obtained from a study by malik Kent prepared from 1437 samples obtained at 7 different centers using the same coagulation reagent and instrumentation as [facility]. Currently there are no coagulation studies available worldwide for children to 14 days, and no normal ranges. Heparin therapeutic range (represented by Anti-Factor Xa activity of 0.2 - 0.4 U/mL) corresponds to PTT of 56.6 - 109.0 sec. INR Coag (PPP) [Relative time] 0.93 {INR} Invalid Interpretation Code [facility] Comment on above: Interpretive Data: I NR results are specifically intended to assess patients stabilized on long-term Anticoagulation therapy suggested INR s Less Intensive Anticoagulation 2.0 3.0 Conventional Range 3.0 4.5 PT Coag (PPP) [Time] 10.4 s Normal 9.4 - 1 2.5 second(s) [facility] Comment on above: Interpretive Data: 1 5 days - 4 weeks 1 - 5 months 6 -11 months 1-5 years 6-10 years 11 -17 years Mean: 11.2 (9.5-12.6) Mean: 11.0 (9.7-12.8) Mean: 11.0 (9.8-13.0) Mean: 11.3 (9.9-13.4) Mean: 11.7 (10.0-14.6) Mean: 11.8 (10.0 - 14.1) Pediatric Reference ranges were obtained from a study by malik Kent prepared from [id number] samples obtained at 7 different centers using the same coagulation reagent and instrumentation as [facility] [place]. Currently there are no coagulation studies available worldwide for children to 14 days, and no normal ranges. CT Head or Brain w/o Contras ton 01-01-2024 CT Head or Brain w/o Contrast Exam Date/Time: 01/01/2024 07:11 EST Reason for Exam: Neuro deficit, acute, stroke suspected;Stroke Report IMPRESSION: NO EVIDENCE OF INTRACRANIAL HEMORRHAGE. CHRONIC FINDINGS. CLINICAL HISTORY: Stroke, Neuro deficit, acute, stroke suspected. COMMENT: Unenhanced images were obtained. The lateral ventricles, sylvian fissures, and cortical sulci bilaterally are dilated. There is no mass effect nor midline shift. There is a small focal area of low-attenuation involving the head of the left caudate nuclei and there is a small low-attenuation focus in the saima to the right of midline, consistent with old lacunar infarcts. There are areas of low-attenuation in the right and left cerebellar hemispheres, compatible with old infarcts. There are small subtle ill-defined areas of slightly decreased attenuation involving cerebral white matter bilaterally, that are nonspecific, but with small vessel ischemic changes suspected. There is no evidence of acute/recent intracranial hemorrhage nor extra-axial hematoma. No mass lesion is evident. No skull fracture is noted. There are calcifications of distal internal carotid and distal vertebral arteries. All CT scans at this facility use dose modulation, iterative reconstruction, and/or weight based dosing when appropriate to reduce radiation dose to as low as reasonably achievable. Ordering Provider: Benjamín Ibanez FINAL REPORT Dictated: 01/01/2024 8:14 am Nikita White M.D. Signed (Electronic Signature): 01/01/2024 8:14 am Signed by: Nikita White M.D. Transcribed by: TREVON Technologist: NATI Cabrera [facility] CT Spine Cervical w/o Kaya chatterjee 01-01-2024 CT Spine Cervical w/o Contrast Exam Date/Time: 01/01/2024 07:15 EST Reason for Exam: Abnormal Radiograph Report IMPRESSION: MULTILEVEL CERVICAL DEGENERATIVE CHANGES. NO EVIDENCE OF CERVICAL SPINE FRACTURE. CLINICAL HISTORY: Patient fell out of bed. Right shoulder pain. COMMENT: Unenhanced images were obtained. There is some degradation of image quality due to patient motion. 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 There is incidental incomplete bony fusion of the posterior arch of C1 in the midline. There is narrowing of interspaces from C3-C4 through C6-C7 and there are anterior and posterior marginal spurs of vertebral bodies at these levels. There are hypertrophic spurs of uncinate processes at C3-C4 bilaterally, C4-C5 on the right, C5-C6 on the left, and C6-C7 bilaterally. There are mild hypertrophic arthritic changes of some of the facet joints. The cervical vertebral bodies are maintained in height. No fracture nor subluxation is noted. Evaluation of cervical intervertebral disc is limited, but with posterior hypertrophic spurring, there are anterior extradural defects at the C3-C4, C4-C5, and C5-C6 levels, most prominent at C5-C6, where there is moderate focal spinal canal stenosis. There is no prevertebral retropharyngeal soft tissue swelling. Of incidental note, there are 1.1 cm and 0.5 cm focal areas of low attenuation in the right thyroid lobe and there are 0.2 and 0.3 cm focal areas of low-attenuation in the left thyroid lobe. Thyroid ultrasound is a consideration for further evaluation. There are calcifications at carotid bifurcations. All CT scans at this facility use dose modulation, iterative reconstruction, and/or weight based dosing when appropriate to reduce radiation dose to as low as reasonably achievable. Ordering Provider: Benjamín Ibanez FINAL REPORT Dictated: 01/01/2024 8:22 am Nikita White M.D. Signed (Electronic Signature): 01/01/2024 8:22 am Signed by: Nikita White M.D. Transcribed by: DP Technologist: NATI [facility] Capillary Glucose POCon Glucose [Mass/Vol] 154 mg/dL High 55-99 [facility] Comment on above: Result Comment: Zhao chavez RN/ Performed By: #### 2 [id number] ####[facility] [id number] [place] [address] Consent for Treatmenton Consent for Treatment [id number] [facility] ED Clinical Summaryon 2023 ED Clinical Summary (Inserted Image. Nata ble to display) [address] [address] ED Clinical Summary Person Information Name: ALICIA BARRIENTOS [place] Age: 78 Years : 1945 Sex: Female Language: Cape Verdean PCP: Amarilis TORRES MD Marital Status: Visit Id: Visit Reason: Fall; Trauma - minor; Shoulder pain-swelling; FALL RT SIDE PAIN Speciality: Acuity: 3 Enc Type: Inpatient Med Service: Emergency Arrival: 01/01/2024 06:22:07 Discharge: LOS: 000 04:16 Checkin: 01/01/2024 06:22:07 Checkout: 01/01/2024 10:38:14 Dispo Type: Admitted as IP to this [facility] EVENTS: Event Name Event Status Request Date/Time Start Date/Time Complete Date/Time Arrive Complete 01/01/2024 06:22:07 01/01/2024 06:22:07 01/01/2024 06:22:07 Document Home Meds Complete 01/01/2024 06:22:07 01/01/2024 09:09:03 01/01/2024 09:09:03 Triage Complete 01/01/2024 06:22:07 01/01/2024 06:38:32 01/01/2024 06:38:32 Bed Assign Complete 01/01/2024 06:30:51 01/01/2024 06:30:51 01/01/2024 06:30:51 Dr Exam Complete 01/01/2024 06:30:51 01/01/2024 06:54:16 01/01/2024 06:54:16 RN Exam Complete 01/01/2024 06:30:51 01/01/2024 06:47:39 01/01/2024 06:47:39 Trauma II Request 01/01/2024 06:43:07 Registration Complete 01/01/2024 06:45:33 01/01/2024 06:45:33 01/01/2024 06:45:33 Reg Complete Request 01/01/2024 06:45:33 Reg Bed Request Complete 01/01/2024 06:45:33 01/01/2024 06:45:33 01/01/2024 06:45:33 Fall Risk Request 01/01/2024 06:47:40 Registration Complete 01/01/2024 06:54:16 01/01/2024 06:57:34 01/01/2024 06:57:34 Trauma II Request 01/01/2024 06:55:57 NPO Request 01/01/2024 06:57:18 Pending Labs Inlab 01/01/2024 06:57:18 Lab Complete 01/01/2024 06:57:18 01/01/2024 08:58:42 Urine Collect Complete 01/01/2024 06:57:18 01/01/2024 08:58:42 Patient Care Request 01/01/2024 06:57:18 X-Ray Complete 01/01/2024 06:57:18 01/01/2024 07:14:54 01/01/2024 08:02:40 RT Request 01/01/2024 06:57:18 Blood Collect Request 01/01/2024 06:57:18 CT Complete 01/01/2024 06:57:18 01/01/2024 07:01:15 01/01/2024 07:11:12 EKG Complete 01/01/2024 06:57:45 01/01/2024 07:31:26 Pending Labs Complete 01/01/2024 06:58:59 01/01/2024 06:58:59 01/01/2024 07:14:14 Lab Complete 01/01/2024 06:58:59 01/01/2024 06:58:59 01/01/2024 07:14:14 CT Complete 01/01/2024 06:59:33 01/01/2024 07:01:15 01/01/2024 07:15:48 Pending Labs Complete 01/01/2024 06:59:38 01/01/2024 06:59:38 01/01/2024 07:10:49 Lab Complete 01/01/2024 06:59:38 01/01/2024 06:59:38 01/01/2024 07:10:49 RR Stroke Request 01/01/2024 07:00:51 Pending Labs Complete 01/01/2024 07:04:52 01/01/2024 07:04:52 01/01/2024 07:04:52 Meds Admin Complete 01/01/2024 07:12:06 01/01/2024 07:32:54 Pending Labs Complete 01/01/2024 08:02:03 01/01/2024 08:02:03 01/01/2024 08:02:03 Wet Read Request 01/01/2024 08:02:40 Pending Labs Collected 01/01/2024 08:50:32 01/01/2024 08:50:32 Lab Collected 01/01/2024 08:50:32 01/01/2024 08:50:32 Consult Request 01/01/2024 08:55:28 Hospitalist Consult Request 01/01/2024 08:55:28 Patient Care Request 01/01/2024 09:50:10 Consult Request 01/01/2024 09:50:10 NPO Request 01/01/2024 09:50:10 Pending Labs Request 01/01/2024 09:50:10 Lab Request 01/01/2024 09:50:10 Meds Admin Request 01/01/2024 09:50:10 Bed Request Request 01/01/2024 09:50:10 Reg Bed Request Complete 01/01/2024 09:50:10 01/01/2024 10:04:03 01/01/2024 10:04:03 Admit Request 01/01/2024 09:50:10 MRI Start 01/01/2024 09:50:10 01/01/2024 10:22:08 Patient Care Request 01/01/2024 10:04:03 Patient Care Request 01/01/2024 10:04:04 Patient Care Request 01/01/2024 10:04:04 Patient Care Request 01/01/2024 10:04:04 Patient Care Request 01/01/2024 10:04:04 Patient Care Request 01/01/2024 10:04:05 MRI Start 01/01/2024 10:21:03 01/01/2024 10:22:08 ADDRESS: [address] [facility] [id number] [facility] DOC NOTES: MEDICAL INFORMATION: Prescriptions Given: Medications to Continue with No Changes Other Medications amlodipine (amLODIPine 2.5 mg Tab) 1 Tablets By Mouth every day. Refills: 1. aspirin (aspirin 81 mg Oral EC Tab) 1 Tablets By Mouth every day. Refills: 1. atorvastatin (atorvastatin 80 mg Tab) 1 Tablets By Mouth at bedtime. Refills: 1. lisinopril (lisinopril 40 mg Tab) 1 Tablets By Mouth every day. Refills: 1. potassium chloride (potassium chloride 20 mEq ER Tab) 1 Tablets By Mouth every day. Refills: 1. PATIENT EDUCATION INFORMATION: Instructions: Follow up: DIAGNOSIS: Accidental fall; Right sided weakness [facility] ED Note-Physicianon 01-01-20 ED Note-Physician Basic Information Time Seen: eBnjamín Ibanez DO 01/01/2024 06:54 Chief Complaint states fell out of bed this am about one hour ago. pain to right shoulder/arm area. denies head injury. History of Present Illness 78-year-old female to the emergency department with chief complaint of accidental fall. Patient reports that approximately 1 hour prior to arrival she was attempting to get out of bed but noted she was weak on her right side. She reports this is not normal for her. When she tried to get up she fell onto the floor. She did not hit her head. She denies any injuries. Family reports she has a history of stroke with similar symptoms. Review of Systems A 10 point review of systems is negative except as noted above. Medical and Surgical History: Reviewed and noted Social history: Lives at home Tobacco: Denies Physical Exam Vitals & Measurements T: 36.6 ?C(Oral) HR: 57(Monitored) RR: 18 BP: 139/93 SpO2: 97% HT: 142 cm WT: 50.7 kg BMI: 25.14 Primary Survey Airway Intact Lung sounds clear and equal bilaterally Pulses full and equal to femoral, radial, and dorsalis pedis bilaterally Heart regular rate and rhythm Skin warm, dry, pink GCS 14, mild confusion Movement and sensation intact to all extremities Patient Fully Exposed. No evidence of traumatic injury Secondary Survey General: GCS 14; Alert HEENT: Head atraumatic; Facial bones stable; Eyes normal inspection, Pupils round, 4-2mm blt; No evidence of oropharyngeal trauma; No blood in the nares or septal hematoma; Tympanic Membranes intact, no hemotympanum or drainage Neck: Normal inspection; no midline C-spine tenderness; No tracheal deviation; No JVD Resp: Normal breath sounds, no wheeze or crackles; No chest wall tenderness, crepitus, or subcutaneous emphysema; No visible evidence of chest wall trauma; Chest rise symmetric; No respiratory distress Heart: Heart rate and rhythm regular; Carotid, radial, femoral, dorsalis pedis pulses +2 and equal bilaterally; No Murmurs Abdomen: Soft; Non-tender No ecchymosis or visible wounds to abdominal wall; No distention, guarding, rigidity, or rebound; Pelvis stable, no pain on compression MSK: All major joints with normal ROM. No deformities. No bony tenderness. No tenderness or step-offs to palpation of thoracic or lumbar spine; No ecchymosis or wounds to upper or lower back Neuro: Alert and oriented; Sensation intact and symmetric bilaterally; drift in the right upper and right lower extremities. Otherwise no focal deficits. See separate NIHSS document. Skin: Color normal; No rash; Warm; Dry Medical Decision Making 78-year-old female to the emergency department accidental fall at home. Vital stable, the patient is afebrile. No traumatic injuries were identified on exam. She initially did not report the weakness to nursing staff however divulges information to me upon my evaluation at which time stroke alert was called. She does have drift in the right upper and right lower extremity which family reports is new. Last known normal around 9 PM last evening. Time of discovery was 1 hour prior to arrival. She is not a tPA candidate as she is outside of the window. CBC and chemistry without significant abnormality. She did have some mild hypoglycemia which was corrected with D10 while the patient was NPO. CT head negative. CT C-spine negative. Chest x-ray without acute findings. EKG without major abnormality. Case is discussed with the hospitalist who agrees admit this patient to his service for stroke workup. Patient and her family members agree with this plan. Assessment/Plan Accidental fall (W19.XXXA: Unspecified fall, initial encounter) Right sided weakness (R53.1: Weakness) Orders: Dextrose 10% in Water intravenous solution, 200 mL, Soln-IV, IV, Once, Stop date 01/01/24 7:11:00 EST, STAT, Start date 01/01/24 7:11:00 EST, 800 mL/hr, Infuse over 15, minute(s), Total Vol (mL): 200 ABO/Rh ABO/Rh History Check Antibody Screen Blood Bank ID# Capillary Glucose POC Cardiac Monitoring CBC w/ Indices Communication Order Communication Order Comprehensive Metabolic Panel Continuous Pulse Oximetry CT Head or Brain w/o Contrast CT Spine Cervical w/o Contrast Dysphagia Screen ECG 12 Lead Adult ED Physician consult Hospitalist for continued care eGFR Extra SST Tube Neurological Assessment NPO Diet Oxygen Protocol PT PTT Rapid Response Form Routine Capillary Glucose POC Stroke Quality Measures Troponin 0 Hr. UA With Cult Reflex Urine Culture XR Chest Single View Medications Administered Given Dextrose 10% in Water IV Jazlyn 500 mL [F], 200 mL, IV Disposition Plan Patient Discharge Condition Stable Discharge Disposition Home Discharge Prescription List Prescriptions No active prescription medications Follow-up No qualifying data available Problem List/Past Medical History Ongoing Aneurysm of internal carotid artery At risk for falls Atherosclerosis of (more content not included)... [facility] Comment on above: Result Comment: Elec tronically Signed By: Benjamín Ibanez DO\.br\Date and Time Signed: 01/01/24 09:57 EST ED Patient Education Noteon 01-01-2024 ED Patient Education Note [facility] ED Patient Summaryon 024 ED Patient Summary (Inserted Image. Nata ble to display) [place] [id number] Patient Discharge Instructions Person Information Name: ALICIA BARRIENTOS Age: 78 Years Arrival Date: 01/01/2024 06:22:07 Discharge Diagnosis: Accidental fall; Right sided weakness Primary Care Physician: Amarilis TORRES MD Provider Information Primary Provider: Benjamín Ibanez DO Advanced Interventional Cardiologist:None The exam and treatment you received in the Emergency Department were for an urgent problem and are not intended as complete care. It is important that you follow up with a doctor, nurse practitioner, or physician?s assistant professor of philosophy for ongoing care. If your symptoms become worse or you do not improve as expected and you are unable to reach your usual health care provider, you should return to the Emergency Department. We are available 24 hours a day. ALICIA BARRIENTOS has been given the following list of patient education materials, prescriptions and follow-up instructions: Follow-up Instructions: In the event that this physician does not participate in your insurance network, please consult with your insurance company to find a nearby participating provider. Patient Education Materials: A MESSAGE TO ALL PATIENTS REGARDING OPIOIDS PRESCRIPTION OPIOIDS: WHAT YOU NEED TO KNOW Prescription opioids can be used to help relieve wrjjvhzg-af-iwquea pain and are often prescribed following a surgery or injury, or for certain health conditions. These medications can be an important part of the treatment but also come with serious risks. It is important to work with your healthcare provider to make sure you are getting the safest, most effective care. WHAT ARE THE RISKS AND SIDE EFFECTS OF OPIOID USE? Prescription opioids carry serious risks of addiction and overdose, especially with prolonged use. An opioid overdose, often marked by slowed breathing, can cause sudden . The use of prescription opioids can have a number of side effects as well, even when taken as directed: ? Tolerance?meaning you might need to take more of the medication for the same pain relief ? Physical dependence?meaning you have symptoms of withdrawal when a medication is stopped ? Increased sensitivity to pain ? Constipation ? Nausea, vomiting, and dry mouth ? Sleepiness and dizziness ? Confusion ? Depression ? Low levels of testosterone that can result in lower sex drive, energy, and strength ? Itching and sweating RISKS ARE GREATER WITH: ? History of drug misuse, substance use disorder, or overdose ? Mental health conditions (such as depression or anxiety) ? Sleep apnea ? Older age (65 years and older) ? Avoid alcohol while taking prescription opioids. Also, unless specifically advised by your health care provider, medications to avoid include: ? Benzodiazepines (such as Xanax or Valium) ? Muscle relaxants (such as Soma or Flexeril) ? Hypnotics (such as Ambien or Lunesta) ? Other prescription opioids KNOW YOUR OPTIONS Talk to your health care provider about ways to manage your pain that don?t involve prescription opioids. Some of these options may actually work better and have fewer risks and side effects. Options may include: ? Pain relievers such as acetaminophen, ibuprofen, and naproxen ? Some medication that are also used for depression or seizures ? Physical therapy and exercise ? Cognitive behavioral therapy, a psychological, goal-directed approach, in which patients learn how to modify physical, behavioral, and emotional triggers of pain and stress. IF YOU ARE PRESCRIBED OPIOIDS FOR PAIN: ? Never take opioids in greater amounts or more often than prescribed. ? Follow up with your primary health care provider. o Work together to create a plan on how to manage your pain. o Talk about ways to help manage your pain that don?t involve prescription opioids. o Talk about any and all concerns and side effects. ? Help prevent misuse and abuse o Never sell or share prescription opioids. o Never use another person?s prescription opioids. ? Store prescription opioids in a secure place and out of reach of others (this may include visitors, children, friends, and family). ? Safely dispose of unused prescription opioids: Find your community drug take-back program or your pharmacy mail-back program, or flush them down the toilet, following guidance from the Food and Drug Administration (www.fda.gov/Drugs/Resource sForYou). ? Visit www.cdc.gov/drugoverdose to learn about the risks of opioids abuse and overdose. ? If you believe you may be struggling with addiction, tell your health respiratory care technician and ask for guidance or call [facility]?S National Helpline at 2-789-186-YQIS. e Source: US Department of Health and Human Services/Center for Disease Control & Prevention [facility] Medications Given: Medication Do (more content not included)... [facility] ED Traumaon 01-01-2024 ED Trauma [id number] [facility] HEMATOLOGYOrdered By: SYSTEM SYSTEM on 01-01-2024 Erythrocyte distribution width (RBC) [Ratio] 17.1 % High 10.9 - 14.2 % Remisol Heme Hematocrit (Bld) [Volume fraction] 40.3 % Normal 34.0 - 46.0 % Remisol Heme Hemoglobin (Bld) [Mass/Vol] 12.7 g/dL Normal 12.0 - 16.0 gm/dL Remisol Heme MCH (RBC) [Entitic mass] 27.3 pg Normal 27.0 - 34.0 pg Remisol Heme MCHC (RBC) [Mass/Vol] 31.6 g/dL Normal 31.4 - 36.0 gm/dL Remisol Heme MCV (RBC) [Entitic vol] 86.4 fL Normal 80.0 - 100.0 fL Remisol Heme Platelet 485.0 E9/L Normal 150.0 - 500.0 E9/L Remisol Heme Platelet mean volume (Bld) [Entitic vol] 7.3 fL Normal 6.4 - 10.8 fL Remisol Heme RBC (Bld) [#/Vol] 4.7 E12/L Normal 4.3 - 5.9 E12/L Remisol Heme RBC size Nom (Bld) NORMAL *NA* (01/01/24 6:42 AM) Invalid Interpretation Code Remisol Heme WBC corrected for nucl RBC Auto (Bld) [#/Vol] 10.2 E9/L Normal 4.0 - 11.0 E9/L Remisol Heme Interdisciplinary Note - Erwin e Manageron 01-01-2024 Interdisciplinary Note - Hydrant Setter CRM to room to discuss DC planning. Patient is awake, alert and oriented. Patient Grandson in room and patient daughter comes in at end. Patient if from home. She verified her PCP, home DME and insurance. Patient is an inpatient, medicare form completed. Patient is here with a fall. She had MRA of neck and head, see results. Patient is assigned to Flor MUNOZ, see notes. Patient is pending a transfer to [place]. CRM provided contact info, white board updated. CRM following [facility] Comment on above: Result Comment: Elec tronically Signed By: Marleny Villasenor\.br\Date and Time Signed: 01/01/24 13:36 EST Interdisciplinary Note - PTo n 01-01-2024 Interdisciplinary Note - PT Order received and chart reviewed with nursing who reports pt to be discharged to another facility. Will d/c PT orders at this time [facility] Interdisciplinary Note - Spe ech Languageon 01-01-2024 Interdisciplinary Note - Speech Language ST 01/01/24 1445: per nursing, pt passed dysphagia screen. swallow eval not indicated at this time. nursing also reports there are no other speech/cog concerns. pt to be discharging to [facility], orders discharged at this time. [facility] Laboratory - Microbiology an d Antimicrobial susceptibilityOrdered By: Sonia Clinton on 01-01-2024 Bacteria identified Cx Nom (U) 75,000 cfu/ml Viridans Streptococcus Group Presumptive isolated. Therapeutic Options: Penicillin or ceftriaxone, with or without an aminoglycoside; vancomycin is used in cases of penicillin allergies and beta-lactam resistance. [facility] MRA Head w/o Contraston MRA Head w/o Contrast Exam Date/Time: 01/01/2024 11:23 EST Reason for Exam: CVA Report IMPRESSION: STABLE HEAD MRA FROM 02/04/2019. EXAM: MRA Head w/o Contrast DATE: 01/01/2024 10:22 AM CLINICAL HISTORY: CVA. COMPARISON: 02/04/2019. TECHNIQUE: Three-dimensional [id number] MRA of the intracranial arterial circulation was performed. Routine and volume rendered images were obtained on a three-dimensional workstation. Narrowings are estimated by NASCET criteria. FINDINGS: A moderate stenosis of the distal right middle cerebral artery and chronic vertebrobasilar disease with both posterior cerebral arteries predominantly supplied via the anterior circulation appears substantially similar to 02/04/2019. There is no other significant stenosis, branch occlusion, intracranial aneurysm, or other significant changes identified. Ordering Provider: Flor Johnson FINAL REPORT Dictated: 01/01/2024 11:45 am Elio Alexis MD Signed (Electronic Signature): 01/01/2024 11:45 am Signed by: Elio Alexis MD Transcribed by: TREVON Technologist: JOSE, Technical Comments None [facility] MRA Neck w/o Contraston MRA Neck w/o Contrast Exam Date/Time: 01/01/2024 11:23 EST Reason for Exam: CVA Report IMPRESSION: PROBABLE NEARLY OCCLUSIVE HIGH-GRADE PROXIMAL LEFT INTERNAL CAROTID ARTERY STENOSIS. 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 Critical communication: Flor Johnson AGACNP-BC was notified at approximately 12:05 PM on 01/01/2024. EXAM: MRA Neck w/o Contrast DATE: 01/01/2024 10:22 AM CLINICAL HISTORY: CVA. COMPARISON: None available. TECHNIQUE: 2D and 3D [id number] MRA of the neck arterial circulation was performed. Routine and volume rendered images were obtained on a three-dimensional workstation. Narrowings are estimated by NASCET criteria. FINDINGS: There is near signal loss of the proximal left internal carotid artery, most likely a probable nearly occlusive high-grade stenosis. There is no other significant stenosis identified in the neck. A very small caliber right vertebral artery is probably developmental variation. The patent left vertebral artery approximately 2 to 3 mm in caliber in the neck. Ordering Provider: Flor Johnson FINAL REPORT Dictated: 01/01/2024 12:06 pm Elio Alexis MD Signed (Electronic Signature): 01/01/2024 12:06 pm Signed by: Elio Alexis MD Transcribed by: TREVON Technologist: JOSE, Technical Comments None Normal [facility] MRI Brain w/o Contraston MRI Brain w/o Contrast Exam Date/Time: 01/01/2024 11:22 EST Reason for Exam: CVA Addendum ZAY BessCNJuan Luis-BC was notified at approximately 12:05 PM on 01/01/2024. Ordering Provider: Flor Johnson FINAL REPORT Dictated: 01/01/2024 12:06 pm Elio Alexis MD Signed (Electronic Signature): 01/01/2024 12:06 pm Signed by: Elio Alexis MD Transcribed by: TREVON Technologist: JOSE, Report IMPRESSION: SMALL UNCOMPLICATED ACUTE/SUBACUTE INFARCTS ALONG THE WATERSHED DISTRIBUTION OF THE LEFT CEREBRUM. CHRONIC, ATROPHIC, AND INVOLUTIONAL CHANGES, NOTED. EXAM: MRI Brain w/o Contrast DATE: 01/01/2024 10:22 AM CLINICAL HISTORY: CVA. COMPARISON: Head CT from earlier 01/01/2024 and head MRA 02/04/2019 TECHNIQUE: Multiplanar MR imaging of the head was performed without contrast. FINDINGS: Acute Change: Several small areas of restricted diffusion along the watershed distribution of the left cerebrum. Hemorrhage: A few punctate areas of hemosiderin and/or petechial hemorrhage. No organized hematoma or extra-axial hemorrhage. Mass Lesion/ Mass Effect: No evidence of an intracranial mass or extra-axial fluid collection. No significant mass effect. Chronic Change: Mild predominantly supratentorial white matter changes most consistent with chronic small vessel ischemic disease. Small chronic basal ganglia, brainstem, cerebellar lacunar infarcts. Parenchyma: Predominantly cerebellar and brainstem volume loss, similar to 02/04/2019. Ventricles: Normal caliber and morphology. Report Skull Base: Partially empty sella turcica. Craniocervical junction is normal. No significant marrow replacement process. Vasculature: Major intracranial arterial structures, and dural venous sinuses show typical flow void, suggesting patency. Other: Paranasal sinuses and mastoid air cells are clear. The orbits are unremarkable. The extracranial soft tissues are unremarkable. Ordering Provider: Flor Johnson FINAL REPORT Dictated: 01/01/2024 11:35 am Elio Alexis MD Signed (Electronic Signature): 01/01/2024 11:35 am Signed by: Elio Alexis MD Transcribed by: TREVON Technologist: JOSE, Report last revised on 01/01/2024 12:06 EST by Elio Alexis MD Normal [facility] Message from Medicareon Message from Medicare [id number]#1.00TIFF Normal [facility] PTon 01-01-2024 INR Coag (PPP) [Relative time] 0.93 {INR} Invalid Interpretation Code [facility] Comment on above: Result Comment: INR results are specifically intended to assess patients stabilized on long-term Anticoagulation therapy suggested INR?s ?Less Intensive Anticoagulation? 2.0 ? 3.0 Conventional Range 3.0 ? 4.5 Performed By: #### 1 [id number], [id number], 2855884, [id number], [id number], [id number] ####[facility] [address] [place] [address] PT Coag (PPP) [Time] 10.4 second(s) Normal 9.4-12.5 [facility] Comment on above: Result Comment: 15 d ays - 4 weeks 1 - 5 months 6 -11 months 1- 5 years 6-10 years 11 -17 years Mean: 11.2 (9.5-12.6) Mean: 11.0 (9.7-12.8) Mean: 11.0 (9.8-13.0) Mean: 11.3 (9.9-13.4) Mean: 11.7 (10.0-14.6) Mean: 11.8 (10.0 - 14.1) Pediatric Reference ranges were obtained from a study by Roberto Sibley, et al. prepared from 1437 samples obtained at 7 different centers using the same coagulation reagent and instrumentation as [facility]. Currently there are no coagulation studies available worldwide for children to 14 days, and no normal ranges. Performed By: #### 1 [id number], 8110093, 3783610, 35250732, 4441411, 0658013 ####[facility] [address] [place] [address] PTTon 01-01-2024 aPTT Coag (PPP) [Time] 37.2 second(s) High 25.1-36.5 [facility] Comment on above: Result Comment: Para meter 15 days - 4 weeks 1 - 5 months 6 - 11 months 1 - 5 years 6 - 10 years 11 - 17 years PTT Mean: 35.4 (27.6-45.6) Mean: 33.5 (24.8-40.7) Mean: 32.4 (25.1-40.7) Mean: 31.6 (24.0-39.2) Mean: 31.6 (26.9-38.7) Mean: 31.0 (24.6-38.4) Pediatric Reference ranges were obtained from a study by junior Kent al. prepared from 1437 samples obtained at 7 different centers using the same coagulation reagent and instrumentation as [facility]. Currently there are no coagulation studies available worldwide for children to 14 days, and no normal ranges. Heparin therapeutic range (represented by Anti-Factor Xa activity of 0.2 - 0.4 U/mL) corresponds to PTT of 56.6 - 109.0 sec. Performed By: #### 1 [id number], 8474541, 3495738, 81346510, 3416800, 5552351 ####[facility] [address] [place] [address] RAD - MRI Screening Formon 0 01-01-2024 RAD - MRI Screening Form [id number]#1.00TIFF Normal [facility] RAD - Preliminary Cat Scan R eporton 01-01-2024 RAD - Preliminary Cat Scan Report [id number]#1.00TIFF Normal [facility] Troponin 0 Hr.on 01-01-2024 Troponin 11.30 pg/mL Normal 10.10-27.1 0 [facility] Comment on above: Result Comment: The 95% CI (Confidence Interval) PPV (Positive Predictive Value) for myocardial infarction in females is 38 pg/mL, in males 51 pg/mL. The results should be used in conjunction with clinical conditions of myocardial infarction. (Access High Sensitivity Troponin I Instructions For Use, Zhang Shabnam, May 2018) Performed By: #### 1 [id number], 7401933, 8649495, [id number], 3039163, 6932639 ####[facility] [address] [place] [address] UA With Cult Reflexon 2023 Bacteria LM Ql (Urine sed) TRACE Normal Trace [facility] Comment on above: Performed By: #### 2 032649, [id number] ####[facility] [address] [place] [address] Bilirubin Ql (U) Negative Normal Negative [facility] Comment on above: Performed By: #### 2 241519, [id number] ####[facility] [address] [place] [address] Clarity (U) CLEAR Normal Clear [facility] Comment on above: Performed By: #### 2 758644, [id number] ####[facility] [address] [place] [address] Color (U) YELLOW Normal Yellow [facility] Comment on above: Performed By: #### 2 705602, [id number] ####[facility] [address] [place] [address] Crystals LM Ql (Urine sed) Present Normal [facility] Comment on above: Performed By: #### 2 334199, [id number] ####[facility] [address] [place] [address] Epithelial cells.squamous LM.HPF (Urine sed) [#/Area] 3-4 Normal 0-2 [facility] Comment on above: Performed By: #### 2 030675, [id number] ####[facility] [address] [place] [address] Glucose Test strip (U) [Mass/Vol] Negative Normal Negative [facility] Comment on above: Performed By: #### 2 948338, [id number] ####[facility] [address] [place] [address] Hemoglobin Ql (U) Negative Normal Negative [facility] Comment on above: Performed By: #### 2 704134, [id number] ####[address] [address] Ketones (U) [Mass/Vol] Negative Normal Negative [facility] Comment on above: Performed By: #### 2 112375, [id number] ####[address] [address] Drake.plasma/Drake .RBC (Bld) [Mass ratio] 0-3 Normal 0-3 [facility] Comment on above: Performed By: #### 2 912476, 86892724 ####[address] [address] Mucus Ql (Urine sed) TRACE Normal [facility] Comment on above: Performed By: #### 2 798619, 14696119 ####[address] [address] Nitrite Ql (U) Negative Normal Negative [facility] Comment on above: Performed By: #### 2 333422, 03292522 ####[address] [address] pH (U) 7.0 [pH] Invalid Interpretation Code 5.0-9.0 [facility] Comment on above: Performed By: #### 2 721311, [id number] ####[address] [address] Protein (U) [Mass/Vol] Negative Normal Negative [facility] Comment on above: Performed By: #### 2 515670, 97039789 ####[address] [address] Specific gravity (U) [Rel density] 1.010 Invalid Interpretation Code 1.005-1.03 0 [facility] Comment on above: Performed By: #### 2 129200, 59160042 ####[facility] [address] [place] [address] Type of Urine collection method Clean Catch Normal [facility] Comment on above: Performed By: #### 2 183777, [id number] ####[facility] [address] [place], [place] [address] Urobilinogen Qn (U) 0.2 {Chan'U}/dL Normal 0.0-1.0 [facility] Comment on above: Performed By: #### 2 565897, [id number] ####[place] [address] WBC Auto Ql (U) 1+ Abnormal Negative [facility] Comment on above: Performed By: #### 2 338061, [id number] ####[facility] [address] [place] [address] WBC LM.HPF (Urine sed) [#/Area] 6-15 Abnormal 0-5 [facility] Comment on above: Performed By: #### 2 470865, [id number] ####[facility] [address] [place] [address] URINALYSISOrdered By: Tootie Mitchell on 01-01-2024 Bacteria LM Ql (Urine sed) Trace /HPF Normal Trace/HPF [facility] UA Auto SS Bilirubin Ql (U) Negative (01/01/24 8:42 AM) Normal Negative [facility] UA Auto SS Clarity (U) Clear (01/01/24 8:42 AM) Normal Clear [facility] UA Auto SS Color (U) Yellow (01/01/24 8:42 AM) Normal Yellow [facility] UA Auto SS Crystals LM Ql (Urine sed) Present (01/01/24 8:42 AM) Normal [facility] UA Auto SS Epithelial cells.squamous LM.HPF (Urine sed) [#/Area] 3-4 /HPF Normal 0-2/HPF [facility] UA Auto SS Glucose Test strip (U) [Mass/Vol] Negative (01/01/24 8:42 AM) Normal Negative [facility] UA Auto SS Hemoglobin Ql (U) Negative (01/01/24 8:42 AM) Normal Negative [facility] UA Auto SS Ketones (U) [Mass/Vol] Negative (01/01/24 8:42 AM) Normal Negative [facility] UA Auto SS Drake.plasma/Drake .RBC (Bld) [Mass ratio] 0-3 /HPF Normal 0-3/HPF [facility] UA Auto SS Mucus Ql (Urine sed) Trace (01/01/24 8:42 AM) Normal [facility] UA Auto SS Nitrite Ql (U) Negative (01/01/24 8:42 AM) Normal Negative [facility] UA Auto SS pH (U) 7.0 *NA* (01/01/24 8:42 AM) Invalid Interpretation Code 5.0 - 9.0 [facility] UA Auto SS Protein (U) [Mass/Vol] Negative (01/01/24 8:42 AM) Normal Negative [facility] UA Auto SS Specific gravity (U) [Rel density] 1.010 *NA* (01/01/24 8:42 AM) Invalid Interpretation Code 1.005 - 1.030 [facility] UA Auto SS UA Spec Desc Clean Catch (01/01/24 8:42 AM) Normal [facility] UA Auto SS Urobilinogen Qn (U) 0.5794546 {Chan'U}/dL Normal 0.0 - 1.0 EU/dL [facility] UA Auto SS WBC Auto Ql (U) 1+ *ABN* (01/01/24 8:42 AM) Invalid Interpretation Code Negative [facility] UA Auto SS WBC LM.HPF (Urine sed) [#/Area] 6-15 /HPF Invalid Interpretation Code 0-5/HPF [facility] UA Auto SS XR Chest Single Viewon 12-31 XR Chest Single View Exam Date/Time: 01/01/2024 08:02 EST Reason for Exam: Chest pain Report IMPRESSION: NO EVIDENCE OF ACTIVE CARDIOPULMONARY DISEASE, BY PORTABLE CHEST RADIOGRAPHY. EXAM: XR Chest Single View DATE: 01/01/2024 7:42 AM CLINICAL HISTORY: Chest pain. COMPARISON: None available. TECHNIQUE: A portable upright AP radiograph of the chest was obtained. 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 There is no significant pulmonary infiltrate, vascular congestion, sizable pleural effusion, pneumothorax, or displaced fractures identified. Ordering Provider: Benjamín Ibanez FINAL REPORT Dictated: 01/01/2024 8:49 am Elio Alexis MD Signed (Electronic Signature): 01/01/2024 8:49 am Signed by: Elio Alexis MD Transcribed by: TREVON Technologist: NAYELY Technical Comments Radiation Dose: Ka,r in mGy = na DAP = na Normal [facility] eGFRon 01-01-2024 eGFR 57 mL/min/1.73 m2 Low >=59 [facility] Comment on above: Order Comment: Order added by Discern Expert. Performed By: #### 1 [id number], 8435190, 2231694, 81862651, 4317056, 4424913 ####[facility] [address] [place] [address] PT - Assessmentson PT - Assessments [id number]#1.00TIFF Normal [facility] PT - Assessments [id number]#1.00TIFF Normal [facility] Ambulatory Visit Summaryon 0 12-22-2023 Ambulatory Visit Summary ALICIA BARRIENTOS :1945 Visit Date:12/22/2023 Ambulatory Visit Instructions Your Diagnosis Recurrent falls while walking Chronic diarrhea Benign hypertension Chronic kidney disease, stage 3a Benign hypertension with chronic kidney disease, stage III Peripheral edema Unintentional weight loss Your Care Team Attending Physician - Amarilis TORRES MD Primary Care Physician - Amarilis TORRES MD This Is Your Medications List amlodipine (amLODIPine 2.5 mg Tab) aspirin (aspirin 81 mg Oral EC Tab) atorvastatin (atorvastatin 80 mg Tab) lisinopril (lisinopril 40 mg Tab) potassium chloride (potassium chloride 20 mEq ER Tab) Procedures Performed Partial resection of colon (11/07/2009), Choley, double bypass, Left total knee, Total hyst. Discharge Vitals Heart Rate (Peripheral) 64 Respiratory Rate 16 Blood Pressure 130/72 Height 142 cm Height 56 in Weight 49.7 kg Weight 109.34 lb BMI 24.65 What to do next Scheduled Follow-Up Appointments Friday 10:00 AM EST With: Where: [facility] 2023 10:00 AM EST With: Where: [facility] Friday 1:15 PM EST With: Where: [facility] Friday 9:15 AM EST With: Where: [facility] Friday 12:30 PM EDT With: Where: [facility] Friday 9:30 AM EDT With: Where: [facility] Friday 10:00 AM EDT With: Where: [facility] Friday 6:00 PM EDT With: Amarilis TORRES MD Where: [facility] [place] Normal [facility] Medicine Office/Clini c Noteon 12-22-2023 Family Medicine Office/Clinic Note Chief Complaint pt presents tonight for 6wk rechk diarrhea sx's, pt c/o bilat foot edema, needs AMV and shingrix History of Present Illness The patient is here for recheck of her balance issues and strength. She is involved in physical therapy and finds that it is beneficial. Her walker has 1 broken brake and they are working on repairing this. Her urinary symptoms have resolved with the medication Provided at the emergency room. Interestingly November 11 urine culture was negative in the office but by the when she was seen in the emergency room she grew out 100 colony-forming units of E. coli with significant bacterial load and symptoms. No longer having any dysuria or incontinence. When last seen had significant concerns about diarrhea. Stool studies were all negative. She took 2 doses of Imodium and her diarrhea resolved completely. Her bowels are moving normally. Has no abdominal pain cramping bloating. Her weight continues to decrease. She goes to the [facility] and receives Meals on Wheels periodically. . Sometimes, she would not eat anything for evening meal.. She eats toast and peanut butter for dinner frequently if her daughter and son-in-law are not home for dinner on time.. She does not want to give up meat but really does not like it as a source of protein. She likes eggs. Bilateral lower extremity edema is fluctuating. More noticeable the past couple months. Not tender. She has never tried Ensure. She does not use salt. She does not like crackers, chips, or peanuts. She does not eat much breakfast. She denies any shortness of breath or chest pain. She is able to lay down at night relatively flat. Denies nocturnal orthopnea. Still denies any sort of mood disorder. Sleep is generally very good at night Review of Systems PHQ Score Initial Depression Screen Score: 0 SCORE See HPI otherwise negative Physical Exam Vitals & Measurements HR: 64(Peripheral) RR: 16 BP: 130/72 SpO2: 95% HT: 56 in HT: 142 cm WT: 49.7 kg WT: 109.34 lb BMI: 24.65 Presenting alone. The patient is adequately groomed, reasonably hydrated. Normocephalic, atraumatic with corrected lenses. Conjunctiva clear. Pupils are symmetric. No scleral icterus. Supple. Auscultation of lungs clear but diminished. Regular rate and rhythm. Faint systolic ejection murmur, left sternal border. Soft, hyperactive bowel sounds, nontender. No organomegaly. Lower extremities do have pitting edema +1 below the knees . There is no skin breakdown. Pulses are +1. Psychiatric, cooperative, insightful. Ambulatory with a wheeled walker and a bench seat very short stature. Assessment/Plan 1. Recurrent falls while walking (R29.6: Repeated falls) Definitely improving through physical therapy managing balance. She is waiting to get her brake fixed on the walker. Ordered: Comprehensive Metabolic Panel Current tobacco non-user 1036F Depression Screening Negative 3352F Discharge medications reconciled with current medications in outpatient record 1111F Influenza immunization administered or previously received 4274F Lipid Panel Most recent diastolic blood pressure <80 mm Hg 3078F Most recent LDL-C < 100 mg/Dl 3048F Patient screen for fall risk: no falls in last year or 1 fall with no injury in last year 1101F Pneumonia Vax administered or previously received 4040F Prealbumin Systolic BP 130-139 mm Hg (Most Recent) 3075F 2. Chronic diarrhea (K52.9: Noninfective gastroenteritis and colitis, unspecified) Diarrhea has completely ceased. I have encouraged her to discontinue/defer the gastroenterology consult unless her symptoms recur. Ordered: Comprehensive Metabolic Panel Current tobacco non-user 1036F Depression Screening Negative 3352F Discharge medications reconciled with current medications in outpatient record 1111F Influenza immunization administered or previously received 4274F Lipid Panel Most recent diastolic blood pressure <80 mm Hg 3078F Most recent LDL-C < 100 mg/Dl 3048F Patient screen for fall risk: no falls in last year or 1 fall with no injury in last year 1101F Pneumonia Vax administered or previously received 4040F Prealbumin Systolic BP 130-139 mm Hg (Most Recent) 3075F 3. Benign hypertension (I10: Essential (primary) hypertension) The importance of the following were all reviewed with the patient: -Take Rx(s )as prescribed. There are simple Lifestyle Modifications that you can do to reduce your blood pressure. -Weight Reduction -Follow the DASH eating plan. More information about this eating plan can be found here: https://www.nhlbi.nih.gov/h ealth/health-topics/topics/ dash -Reduce Sodium (Salt) Intake to 2000mg per day. -Use Moderation when consuming alcohol. - To improve your health we recommend increasing your level of moderate exercise to at least 2.5 hrs per week. For more information, please visit the CDC Exercise and Fitness Recommendations at www.cdc.gov/physicalactivit y/basics/index.htm Ordered: Comprehe (more content not included)... Normal [facility] Comment on above: Result Comment: Elec tronically Signed By: Amarilis TORRES MD\.br\Date and Time Signed: 12/22/23 21:44 EST Patient Educationon 12-21-19 Patient Education Infectious Disease Diarrhea, Adult Diarrhea is frequent loose and watery bowel movements. Diarrhea can make you feel weak and cause you to become dehydrated. Dehydration can make you tired and thirsty, cause you to have a dry mouth, and decrease how often you urinate. Diarrhea typically lasts 2?3 days. However, it can last longer if it is a sign of something more serious. It is important to treat your diarrhea as told by your health care provider. Follow these instructions at home: Eating and drinking Follow these recommendations as told by your health care provider: ? Take an oral rehydration solution (ORS). This is an vgvk-bao-ldsjynn medicine that helps return your body to its normal balance of nutrients and water. It is found at pharmacies and retail stores. ? Drink plenty of fluids, such as water, ice chips, diluted fruit juice, and low-calorie sports drinks. You can drink milk also, if desired. ? Avoid drinking fluids that contain a lot of sugar or caffeine, such as energy drinks, sports drinks, and soda. ? Eat bland, jxhz-zw-ejcwqt foods in small amounts as you are able. These foods include bananas, applesauce, rice, lean meats, toast, and crackers. ? Avoid alcohol. ? Avoid spicy or fatty foods. Medicines ? Take mtgc-cgo-xlcapgi and prescription medicines only as told by your health care provider. ? If you were prescribed an antibiotic medicine, take it as told by your health care provider. Do not stop using the antibiotic even if you start to feel better. General instructions ? Wash your hands often using soap and water. If soap and water are not available, use a hand customer service receptionist. Others in the household should wash their hands as well. Hands should be washed: ? After using the toilet or changing a diaper. ? Before preparing, cooking, or serving food. ? While caring for a sick person or while visiting someone in a hospital. ? Drink enough fluid to keep your urine pale yellow. ? Rest at home while you recover. ? Watch your condition for any changes. ? Take a warm bath to relieve any burning or pain from frequent diarrhea episodes. ? Keep all follow-up visits as told by your health care provider. This is important. Contact a health care provider if: ? You have a fever. ? Your diarrhea gets worse. ? You have new symptoms. ? You cannot keep fluids down. ? You feel light-headed or dizzy. ? You have a headache. ? You have muscle cramps. Get help right away if: ? You have chest pain. ? You feel extremely weak or you faint. ? You have bloody or black stools or stools that look like tar. ? You have severe pain, cramping, or bloating in your abdomen. ? You have trouble breathing or you are breathing very quickly. ? Your heart is beating very quickly. ? Your skin feels cold and clammy. ? You feel confused. ? You have signs of dehydration, such as: ? Dark urine, very little urine, or no urine. ? Cracked lips. ? Dry mouth. ? Sunken eyes. ? Sleepiness. ? Weakness. Summary ? Diarrhea is frequent loose and sometimes watery bowel movements. Diarrhea can make you feel weak and cause you to become dehydrated. ? Drink enough fluids to keep your urine pale yellow. ? Make sure that you wash your hands after using the toilet. If soap and water are not available, use hand customer service receptionist. ? Contact a health care provider if your diarrhea gets worse or you have new symptoms. ? Get help right away if you have signs of dehydration. This information is not intended to replace advice given to you by your health care provider. Make sure you discuss any questions you have with your health care provider. Document Revised: 01/03/2023 Document Reviewed: 04/24/2022 [employer] Patient Education ? 2022 [employer]. [facility] PT - Home Exercise Programon 12-08-2023 PT - Home Exercise Program [id number]#1.00TIFF [facility] Consent for Treatmenton Consent for Treatment [id number]#1.00TIFF [facility] PT - Assessmentson PT - Assessments [id number]#1.00TIFF [facility] PT - Assessments [id number]#1.00TIFF [facility] PT - Consentson 12-01-2023 PT - Consents [id number]#1.00TIFF [facility] PT - Home Exercise Programon 12-01-2023 PT - Home Exercise Program [id number]#1.00TIFF [facility] C Urineon 11-18-2023 Bacteria identified Cx Nom (U) Microbiology PROCEDURE: Urine Culture [R1] SOURCE: U CleanCatch BODY SITE: COLLECTED DATE/TIME: 11/15/2023 15:55 EST RECEIVED DATE/TIME: 11/16/2023 07:59 EST START DATE/TIME: 11/16/2023 07:59 EST FREE TEXT SOURCE: Matilde Stahl PA-C, PA-C, Matilde Page FINAL REPORTS Final Report [] Verified Date/Time: 11/18/2023 11:22 EST >100,000 cfu/ml Escherichia coli SUSCEPTIBILITY RESULTS LEGEND: S=Susceptible, N/R=Not Reported, Blank=Data not available, or drug not advisable or tested, I=Intermediate, ESBL=Extended spectrum beta-lactamase, R=Resistant, TFG=Thymidine-dependent strain, EARNEST=Beta-lactamase positive, YOUSIF=mcg/m;(mg/L), S*=Predicted susceptible interp, R*=Predicted resistant interp EC Antibiotic YOUSIF Dilutn YOUSIF Interp Amikacin <=16 S Ampicillin <=8 S Ampicillin/ <=8/4 S Sulbactam Aztreonam <=4 S Cefazolin <=2 S Cefepime <=2 S Cefoxitin <=8 S Ceftazidime <=1 S Ceftazidime/ <=8 S Avibactam Ceftriaxone <=1 S Ciprofloxacin <=1 S Ertapenem <=0.5 S Gentamicin <=4 S Levofloxacin <=2 S Meropenem <=1 S Nitrofurantoin <=32 S Piperacillin/ <=16 S Tazobactam Tetracycline <=4 S Tigecycline <=2 S Tobramycin <=4 S Trimethoprim/ <=2/38 S Sulfa Performing Locations R1: This test was performed at: [facility], [address] [place] [address], [id number] , [place], Normal [facility] Comment on above: Performed By: #### 2 [id number], [id number] ####[address] [address] Giardia, Direct, EIAon 11-18 G. lamblia Ag IA Ql (Stl) Negative Invalid Interpretation Code Negative [facility] Comment on above: Result Comment: Perf ormed at: [address] [id number] PhD Donna Xie Performed By: #### 1 [id number], [id number], [id number], [id number], [id number], [id number] ####[address] [address] O & P EXAM, ROUTINE, REFLEXo n 11-18-2023 Ova and parasites identified Concentration Nom (Stl) Comment Invalid Interpretation Code [facility] Comment on above: Result Comment: No o va, cysts, or parasites seen. One negative specimen does not rule out the possibility of a parasitic infection. Performed at: [address] [id number] PhD Donna Xie Performed By: #### 1 [id number], [id number], 31796435, [id number], [id number], [id number] ####[address] [place] [address] O & P Exam, Routineon 2023 Ova and parasites identified LM Nom (Unsp spec) Final report Invalid Interpretation Code [facility] Comment on above: Result Comment: Thes e results were obtained using wet preparation(s) and trichrome stained smear. This test does not include testing for Cryptosporidium parvum, Cyclospora, or Microsporidia. Performed at: [address] [address] [place], [place] [id number] PhD Donna Xie Performed By: #### 1 [id number], [id number], [id number], [id number], [id number], [id number] ####[facility] [address] [place] [address] BMPon 11-15-2023 Anion gap [Moles/Vol] 12 mmol/L Normal 6-16 [facility] Comment on above: Performed By: #### 2 281292, 31862558, 6609305 ####[facility] [address] [place] [address] BUN/Creat Ratio 13 No Units Normal 10-20 [facility] Comment on above: Performed By: #### 2 914831, [id number], 8852991 ####[facility] [address] [place] [address] Calcium [Mass/Vol] 9.2 mg/dL Normal 8.9-11.1 [facility] Comment on above: Performed By: #### 2 348934, 50212756, 0940697 ####[facility] [address] [place] [address] Chloride [Moles/Vol] 109 mmol/L Normal 101-111 [facility] Comment on above: Performed By: #### 2 080168, 74988819, 4957788 ####[facility] [address] [place] [address] CO2 [Moles/Vol] 20 mmol/L Low 21-31 [facility] Comment on above: Performed By: #### 2 128516, 19126270, 4027630 ####[facility] [address] [place] [address] Creatinine [Mass/Vol] 1.2 mg/dL Normal 0.5-1.3 [facility] Comment on above: Performed By: #### 2 064461, [id number], 5880967 ####[address] [place] [address] Glucose [Mass/Vol] 104 mg/dL Normal 55-199 [facility] Comment on above: Performed By: #### 2 656621, 55347377, 0683619 ####[address] [address] Potassium [Moles/Vol] 4.3 mmol/L Normal 3.5-5.3 [facility] Comment on above: Performed By: #### 2 494463, 59727477, 7261635 ####[address] [address] Sodium [Moles/Vol] 137 mmol/L Normal 135-145 [facility] Comment on above: Performed By: #### 2 678521, 33533420, 1629830 ####[address] [address] Urea nitrogen [Mass/Vol] 16 mg/dL Normal 5-21 [facility] Comment on above: Performed By: #### 2 539899, 79948613, 2575622 ####[address] [address] CBC w/ Auto Diffon 4 Basophil Absolute 0.1 E9/L Normal 0.0-0.2 [facility] Comment on above: Performed By: #### 2 848879, 36181216, 5184865 ####[address] [address] Basophils/100 WBC (Bld) 0.5 % Normal 0.0-2.0 [facility] Comment on above: Performed By: #### 2 929611, 15783835, 7868263 ####[address] [address] Eos Absolute 0.1 E9/L Normal 0.0-0.5 [facility] Comment on above: Performed By: #### 2 179188, 75350377, 1222057 ####[facility] [address] [place] [address] Eosinophils/100 WBC (Bld) 0.8 % Normal 0.0-8.0 [facility] Comment on above: Performed By: #### 2 809643, 81350916, 0537035 ####[address] [address] Erythrocyte distribution width (RBC) [Ratio] 15.9 % High 10.9-14.2 [facility] Comment on above: Performed By: #### 2 797256, 85323377, 3925585 ####[address] [address] Hematocrit (Bld) [Volume fraction] 40.0 % Normal 34.0-46.0 [facility] Comment on above: Performed By: #### 2 315609, 18034165, 3504053 ####[address] [address] Hemoglobin (Bld) [Mass/Vol] 13.0 g/dL Normal 12.0-16.0 [facility] Comment on above: Performed By: #### 2 935991, 38283019, 5572104 ####[address] [address] Lymph Absolute 1.2 E9/L Normal 1.0-4.0 [facility] Comment on above: Performed By: #### 2 680243, 20189989, 2734577 ####[address] [address] Lymphocytes/100 WBC (Bld) 11.3 % Low 14.0-50.0 [facility] Comment on above: Performed By: #### 2 127433, 32015977, 1453137 ####[address] [address] MCH (RBC) [Entitic mass] 28.5 pg Normal 27.0-34.0 [facility] Comment on above: Performed By: #### 2 137002, 11679221, 7268932 ####[address] [address] MCHC (RBC) [Mass/Vol] 32.5 g/dL Normal 31.4-36.0 [facility] Comment on above: Performed By: #### 2 927716, 51888437, 8307114 ####[address] [address] MCV (RBC) [Entitic vol] 87.8 fL Normal 80.0-100.0 [facility] Comment on above: Performed By: #### 2 565485, 28381069, 4642814 ####[address] [address] [place] Absolute 0.8 E9/L Normal 0.2-1.0 [facility] Comment on above: Performed By: #### 2 834257, 35126141, 6382322 ####[address] [address] Monocytes/100 WBC (Bld) 7.1 % Normal 4.0-14.0 [facility] Comment on above: Performed By: #### 2 554633, 88908825, 2010387 ####[address] [address] Neutro Absolute 8.8 E9/L High 2.0-7.5 [facility] Comment on above: Performed By: #### 2 888703, 48413385, 4969281 ####[address] [address] Neutro Auto 80.3 % High 36.0-75.0 [facility] Comment on above: Performed By: #### 2 834973, 85417435, 0571288 ####[address] [address] Platelet 405.0 E9/L Normal 150.0-500. 0 [facility] Comment on above: Performed By: #### 2 079115, 93387525, 6762623 ####[facility] [address] [place] [address] Platelet mean volume (Bld) [Entitic vol] 7.0 fL Normal 6.4-10.8 [facility] Comment on above: Performed By: #### 2 677132, 52940081, 4320047 ####[facility] [address] [place] [address] RBC 4.6 E12/L Normal 4.3-5.9 [facility] Comment on above: Performed By: #### 2 938884, 03844642, 7682695 ####[address] [place] [address] WBC 10.9 E9/L Normal 4.0-11.0 [facility] Comment on above: Performed By: #### 2 517254, 96451175, 1941368 ####[address] [address] Consent for Treatmenton 10-28 Consent for Treatment [id number] Normal [facility] Discharge Instructionson Discharge Instructions [id number] Normal [facility] ED Clinical Summaryon 2023 ED Clinical Summary (Inserted Image. Nata ble to display) [address] [address] ED Clinical Summary Person Information Name: ALICIA BARRIENTOS [facility] Age: 78 Years : 1945 Sex: Female Language: Cape Verdean PCP: Amarilis TORRES MD Marital Status: Visit Id: Visit Reason: Dysuria; URINARY FREQ Speciality: Acuity: 3 Enc Type: Emergency Med Service: Emergency Arrival: 11/15/2023 15:00:03 Discharge: 11/15/2023 16:44:45 LOS: 000 01:44 Checkin: 11/15/2023 15:00:03 Checkout: 11/15/2023 16:44:45 Dispo Type: Home (Routine DC) EVENTS: Event Name Event Status Request Date/Time Start Date/Time Complete Date/Time Arrive Complete 11/15/2023 15:00:03 11/15/2023 15:00:03 11/15/2023 15:00:03 Document Home Meds Request 11/15/2023 15:00:03 Triage Complete 11/15/2023 15:00:03 11/15/2023 15:19:07 11/15/2023 15:19:07 Registration Complete 11/15/2023 15:04:09 11/15/2023 15:04:09 11/15/2023 15:04:09 Reg Complete Request 11/15/2023 15:04:09 Reg Bed Request Complete 11/15/2023 15:04:09 11/15/2023 15:04:09 11/15/2023 15:04:09 Pending Labs Complete 11/15/2023 15:05:09 11/15/2023 16:13:18 Lab Complete 11/15/2023 15:05:09 11/15/2023 16:13:18 Urine Collect Complete 11/15/2023 15:05:09 11/15/2023 16:13:18 Bed Assign Complete 11/15/2023 15:09:47 11/15/2023 15:09:47 11/15/2023 15:09:47 Dr Exam Complete 11/15/2023 15:09:47 11/15/2023 15:15:49 11/15/2023 15:15:49 RN Exam Complete 11/15/2023 15:09:47 11/15/2023 16:30:05 11/15/2023 16:30:05 Registration Request 11/15/2023 15:15:49 Dr Exam Complete 11/15/2023 15:17:35 11/15/2023 15:17:35 11/15/2023 15:17:35 Pending Labs Complete 11/15/2023 15:21:10 11/15/2023 15:49:59 Lab Complete 11/15/2023 15:21:10 11/15/2023 15:49:59 Pending Labs Complete 11/15/2023 15:32:30 11/15/2023 15:32:30 11/15/2023 15:49:59 Lab Complete 11/15/2023 15:32:30 11/15/2023 15:32:30 11/15/2023 15:49:59 Pending Labs Collected 11/15/2023 16:02:36 11/15/2023 16:02:36 Lab Collected 11/15/2023 16:02:36 11/15/2023 16:02:36 Meds Admin Complete 11/15/2023 16:32:33 11/15/2023 16:38:52 Discharge Complete 11/15/2023 16:34:46 11/15/2023 16:44:54 11/15/2023 16:44:54 Transfer Complete 11/15/2023 16:44:54 11/15/2023 16:44:54 11/15/2023 16:44:54 ADDRESS: [address] [facility] [id number] PHYS DOC NOTES: MEDICAL INFORMATION: Prescriptions Given: New Medications [facility], [address] [id number], [phone] cephalexin (Keflex 500 mg Cap) 1 Capsules By Mouth every 6 hours for 7 Days. Refills: 0. Medications to Continue with No Changes Other Medications amlodipine (amLODIPine 2.5 mg Tab) 1 Tablets By Mouth every day. Refills: 1. aspirin (aspirin 81 mg Oral EC Tab) 1 Tablets By Mouth every day. Refills: 1. atorvastatin (atorvastatin 80 mg Tab) 1 Tablets By Mouth at bedtime. Refills: 1. lisinopril (lisinopril 40 mg Tab) 1 Tablets By Mouth every day. Refills: 1. potassium chloride (potassium chloride 20 mEq ER Tab) 1 Tablets By Mouth every day. Refills: 1. PATIENT EDUCATION INFORMATION: Instructions: Urinary Tract Infection, Adult Follow up: With: Address: When: Amarilis TORRES [address] [place] [address], [facility] [place] [address] Business (1) In 3 days DIAGNOSIS: UTI (urinary tract infection) Normal [facility] ED Note-Physicianon 11-15-19 24 ED Note-Physician Basic Information Time Seen: Maribeth TUCKERMatilde Kaylee 11/15/2023 15:15 Chief Complaint recent diarrhea that was sent for fecal testing recently has stopped but pt. states she now has burning with urination that started today. increased frequency but doesn't go much per pt. denies fever/ chills/ N/V. History of Present Illness 78-year-old female presents to the ED with complaints of burning with urination. Patient states she has been having diarrhea for last couple weeks, has been seen by her PCP for this and has been taking Imodium which has been helping. Patient reports that she had fecal testing which was normal. Patient states that today she woke up with urinary frequency and urgency. States she feels like she has to go the bathroom all the time but only a little bit of urine comes out. It myles when she goes. No fevers, chills, nausea, vomiting. No back pain. No weakness. Otherwise doing well. Review of Systems All organ systems are reviewed. Pertinent positive and negative findings as mentioned in the HPI. Physical Exam Vitals & Measurements T: 36.6 ?C(Oral) HR: 94(Peripheral) RR: 18 BP: 129/76 SpO2: 97% HT: 142 cm WT: 51.5 kg BMI: 25.54 GENERAL APPEARANCE: Well developed, well nourished, alert and cooperative, and appears to be in no acute distress. HEAD: normocephalic, atraumatic EYES: PERRL, EOMI. Vision is grossly intact. EARS: External auditory canals clear, hearing grossly intact. NOSE: No nasal discharge. THROAT: Oral cavity and pharynx normal. Oral mucosa moist. CARDIAC: Normal heart sounds, no murmurs. Rhythm is regular. LUNGS: Clear to auscultation without rales, rhonchi, wheezing or diminished breath sounds. ABDOMEN: Soft, nondistended, nontender. No guarding or rebound. MUSCULOSKELETAL: Adequately aligned spine. ROM intact spine and extremities. No joint erythema or tenderness. BACK: No CVA tenderness NEUROLOGICAL: CN grossly intact. Strength and sensation symmetric and intact throughout. SKIN: Skin normal color, texture and turgor with no lesions or eruptions. Assessment/Plan UTI (urinary tract infection) (N39.0: Urinary tract infection, site not specified) Orders: cephalexin, 500 mg = 1 cap(s), Oral, QID, X 7 day(s), # 28 cap(s), Refills(s) 0, Pharmacy: [facility]/pharmacy #[id number], 142, cm, 11/15/23 15:19:00 EST, Height/Length Dosing, 51.5, kg, 11/15/23 15:19:00 EST, Weight Dosing cephalexin, 500 mg = 1 cap(s), Cap, Oral, Once, Stop date 11/15/23 16:31:00 EST, STAT, Start date 11/15/23 16:31:00 EST, 11/15/23 16:31:00 EST Basic Metabolic Panel CBC w/ Auto Diff eGFR UA With Cult Reflex Urine Culture 78-year-old female presents to the ED with complaints of urinary urgency, frequency, dysuria. In the ED patient is afebrile, vital signs are stable, no acute distress. Labs reviewed and noted, no concerning findings. Urinalysis positive for UTI with WBC, bacteria, nitrite noted. Patient was educated on results, will be treated with antibiotics. Patient discharged home with instructions to follow with PCP and is to return to the ED with any new or worsening symptoms. Patient voices understanding and is agreeable to plan. Medications Administered Given Keflex 500 mg Cap, 500 mg, Oral Disposition Plan Patient Discharge Condition improved, stable Discharge Disposition To home Discharge Prescription List Prescriptions Keflex 500 mg Cap, 500 mg= 1 cap(s), Oral, QID Follow-up With When Contact Information Amarilis TORRES In 3 days [address] [id number] [facility] (1) Additional Instructions: Patient Education Urinary Tract Infection, Adult Attestation Patient was treated and evaluated by the [facility]. The attending physician was in the Emergency Department at all times and supervised care. The case was discussed with the attending physician and diagnostics were reviewed as needed. 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 Medications Inpatient No active inpatient medications Home amLODIPine 2.5 mg Tab, 2.5 mg= 1 tab(s), Oral, Daily, 1 refills aspirin 81 (more content not included)... Normal [facility] Comment on above: Result Comment: Elec tronically Signed By: Matilde Stahl PA-C\.br\Date and Time Signed: 11/15/23 17:50 EST\.br\Electronically Co-Signed By: Benjamín Ibanez DO\.br\Date and Time Co-Signed: 11/15/23 19:01 EST ED Patient Education Noteon 11-15-2023 ED Patient Education Note Obstetrics and Gynecology Urinary Tract Infection, Adult A urinary tract infection (UTI) is an infection of any part of the urinary tract. The urinary tract includes the kidneys, ureters, bladder, and urethra. These organs make, store, and get rid of urine in the body. An upper UTI affects the ureters and kidneys. A lower UTI affects the bladder and urethra. What are the causes? Most urinary tract infections are caused by bacteria in your genital area around your urethra, where urine leaves your body. These bacteria grow and cause inflammation of your urinary tract. What increases the risk? You are more likely to develop this condition if: ? You have a urinary catheter that stays in place. ? You are not able to control when you urinate or have a bowel movement (incontinence). ? You are female and you: ? Use a spermicide or diaphragm for control. ? Have low estrogen levels. ? Are . ? You have certain genes that increase your risk. ? You are sexually active. ? You take antibiotic medicines. ? You have a condition that causes your flow of urine to slow down, such as: ? An enlarged prostate, if you are male. ? Blockage in your urethra. ? A kidney stone. ? A nerve condition that affects your bladder control (neurogenic bladder). ? Not getting enough to drink, or not urinating often. ? You have certain medical conditions, such as: ? Diabetes. ? A weak disease-fighting system (immunesystem). ? Sickle cell disease. ? Gout. ? Spinal cord injury. What are the signs or symptoms? Symptoms of this condition include: ? Needing to urinate right away (urgency). ? Frequent urination. This may include small amounts of urine each time you urinate. ? Pain or burning with urination. ? Blood in the urine. ? Urine that smells bad or unusual. ? Trouble urinating. ? Cloudy urine. ? Vaginal discharge, if you are female. ? Pain in the abdomen or the lower back. You may also have: ? Vomiting or a decreased appetite. ? Confusion. ? Irritability or tiredness. ? A fever or chills. ? Diarrhea. The first symptom in older adults may be confusion. In some cases, they may not have any symptoms until the infection has worsened. How is this diagnosed? This condition is diagnosed based on your medical history and a physical exam. You may also have other tests, including: ? Urine tests. ? Blood tests. ? Tests for STIs (sexually transmitted infections). If you have had more than one UTI, a cystoscopy or imaging studies may be done to determine the cause of the infections. How is this treated? Treatment for this condition includes: ? Antibiotic medicine. ? Zevo-hik-wfoscsa medicines to treat discomfort. ? Drinking enough water to stay hydrated. If you have frequent infections or have other conditions such as a kidney stone, you may need to see a health care provider who specializes in the urinary tract (urologist). In rare cases, urinary tract infections can cause sepsis. Sepsis is a life-threatening condition that occurs when the body responds to an infection. Sepsis is treated in the hospital with IV antibiotics, fluids, and other medicines. Follow these instructions at home: Medicines ? Take owno-fcr-cntmuev and prescription medicines only as told by your health care provider. ? If you were prescribed an antibiotic medicine, take it as told by your health care provider. Do not stop using the antibiotic even if you start to feel better. General instructions ? Make sure you: ? Empty your bladder often and completely. Do not hold urine for long periods of time. ? Empty your bladder after sex. ? Wipe from front to back after urinating or having a bowel movement if you are female. Use each tissue only one time when you wipe. ? Drink enough fluid to keep your urine pale yellow. ? Keep all follow-up visits. This is important. Contact a health care provider if: ? Your symptoms do not get better after 1?2 days. ? Your symptoms go away and then return. Get help right away if: ? You have severe pain in your back or your lower abdomen. ? You have a fever or chills. ? You have nausea or vomiting. Summary ? A urinary tract infection (UTI) is an infection of any part of the urinary tract, which includes the kidneys, ureters, bladder, and urethra. ? Most urinary tract infections are caused by bacteria in your genital area. ? Treatment for this condition often includes antibiotic medicines. ? If you were prescribed an antibiotic medicine, take it as told by your health care provider. Do not stop using the antibiotic even if you start to feel better. ? Keep all follow-up visits. This is important. This information is not intended to replace advice given to you by your health care provider. Make sure you discuss any questions you have with your health care provider. Document Revised: 05/25/2021 Document Revie (more content not included)... Normal [facility] ED Patient Summaryon 024 ED Patient Summary (Inserted Image. Nata ble to display) [place] [id number] Patient Discharge Instructions Person Information Name: SARITA BARRIENTOSLEY Chon Age: 78 Years Arrival Date: 11/15/2023 15:00:03 Discharge Diagnosis: UTI (urinary tract infection) Primary Care Physician: Amarilis TORRES MD Provider Information Primary Provider: Benjamín Ibanez DO Advanced Interventional Cardiologist:Matilde Stahl PA-C The exam and treatment you received in the Emergency Department were for an urgent problem and are not intended as complete care. It is important that you follow up with a doctor, nurse practitioner, or physician?s assistant professor of philosophy for ongoing care. If your symptoms become worse or you do not improve as expected and you are unable to reach your usual health care provider, you should return to the Emergency Department. We are available 24 hours a day. ALICIA BARRIENTOS has been given the following list of patient education materials, prescriptions and follow-up instructions: Follow-up Instructions: With: Address: When: Amarilis TORRES [address] [place] [address], [facility] [place] [phone] Business (1) In 3 days In the event that this physician does not participate in your insurance network, please consult with your insurance company to find a nearby participating provider. Patient Education Materials: Urinary Tract Infection, Adult A MESSAGE TO ALL PATIENTS REGARDING OPIOIDS PRESCRIPTION OPIOIDS: WHAT YOU NEED TO KNOW Prescription opioids can be used to help relieve frouzpji-cf-zxttud pain and are often prescribed following a surgery or injury, or for certain health conditions. These medications can be an important part of the treatment but also come with serious risks. It is important to work with your healthcare provider to make sure you are getting the safest, most effective care. WHAT ARE THE RISKS AND SIDE EFFECTS OF OPIOID USE? Prescription opioids carry serious risks of addiction and overdose, especially with prolonged use. An opioid overdose, often marked by slowed breathing, can cause sudden . The use of prescription opioids can have a number of side effects as well, even when taken as directed: ? Tolerance?meaning you might need to take more of the medication for the same pain relief ? Physical dependence?meaning you have symptoms of withdrawal when a medication is stopped ? Increased sensitivity to pain ? Constipation ? Nausea, vomiting, and dry mouth ? Sleepiness and dizziness ? Confusion ? Depression ? Low levels of testosterone that can result in lower sex drive, energy, and strength ? Itching and sweating RISKS ARE GREATER WITH: ? History of drug misuse, substance use disorder, or overdose ? Mental health conditions (such as depression or anxiety) ? Sleep apnea ? Older age (65 years and older) ? Avoid alcohol while taking prescription opioids. Also, unless specifically advised by your health care provider, medications to avoid include: ? Benzodiazepines (such as Xanax or Valium) ? Muscle relaxants (such as Soma or Flexeril) ? Hypnotics (such as Ambien or Lunesta) ? Other prescription opioids KNOW YOUR OPTIONS Talk to your health care provider about ways to manage your pain that don?t involve prescription opioids. Some of these options may actually work better and have fewer risks and side effects. Options may include: ? Pain relievers such as acetaminophen, ibuprofen, and naproxen ? Some medication that are also used for depression or seizures ? Physical therapy and exercise ? Cognitive behavioral therapy, a psychological, goal-directed approach, in which patients learn how to modify physical, behavioral, and emotional triggers of pain and stress. IF YOU ARE PRESCRIBED OPIOIDS FOR PAIN: ? Never take opioids in greater amounts or more often than prescribed. ? Follow up with your primary health care provider. o Work together to create a plan on how to manage your pain. o Talk about ways to help manage your pain that don?t involve prescription opioids. o Talk about any and all concerns and side effects. ? Help prevent misuse and abuse o Never sell or share prescription opioids. o Never use another person?s prescription opioids. ? Store prescription opioids in a secure place and out of reach of others (this may include visitors, children, friends, and family). ? Safely dispose of unused prescription opioids: Find your community drug take-back program or your pharmacy mail-back program, or flush them down the toilet, following guidance from the Food and Drug Administration (www.fda.gov/Drugs/Resource sForYou). ? Visit www.cdc.gov/drugoverdose to learn about the risks of opioids abuse and overdose. ? If you believe you may be struggling with addiction, tell your health respiratory care technician and ask for guidance or call [facility] (more content not included)... Normal [facility] UA With Cult Reflexon 2023 Bacteria LM Ql (Urine sed) 1+ /HPF Abnormal Trace [facility] Comment on above: Performed By: #### 2 [id number], [id number] ####[facility] [address] [place] [address] Bilirubin Ql (U) 1+ Abnormal Negative [facility] Comment on above: Performed By: #### 2 204036, [id number] ####[facility] [address] [place] [address] Clarity (U) SL CLOUDY Abnormal Clear [facility] Comment on above: Performed By: #### 2 826299, [id number] ####[facility] [address] [place] [address] Color (U) YELLOW Normal Yellow [facility] Comment on above: Performed By: #### 2 995637, [id number] ####[facility] [address] [place] [address] Epithelial cells.squamous LM.HPF (Urine sed) [#/Area] 0-2 Normal 0-2 [facility] Comment on above: Performed By: #### 2 157314, [id number] ####[facility] [address] [place] [address] Glucose Test strip (U) [Mass/Vol] Negative Normal Negative [facility] Comment on above: Performed By: #### 2 386533, [id number] ####[facility] [address] [place] [address] Hemoglobin Ql (U) 1+ Abnormal Negative [facility] Comment on above: Performed By: #### 2 389282, [id number] ####[facility] [address] [place] [address] Ketones (U) [Mass/Vol] Negative Normal Negative [facility] Comment on above: Performed By: #### 2 868256, [id number] ####[facility] [address] [place] [address] Drake.plasma/Drake .RBC (Bld) [Mass ratio] 4-20 Normal 0-3 [facility] Comment on above: Performed By: #### 2 077762, [id number] ####[facility] [address] [place] [address] Mucus Ql (Urine sed) TRACE Normal [facility] Comment on above: Performed By: #### 2 342892, [id number] ####[facility] [address] [place] [address] Nitrite Ql (U) Positive Abnormal Negative [facility] Comment on above: Performed By: #### 2 998438, [id number] ####[facility] [address] [place] [address] pH (U) 6.0 [pH] Invalid Interpretation Code 5.0-9.0 [facility] Comment on above: Performed By: #### 2 691024, [id number] ####[facility] [address] [place] [address] Protein (U) [Mass/Vol] Negative Normal Negative [facility] Comment on above: Performed By: #### 2 789924, [id number] ####[facility] [address] [place] [address] Specific gravity (U) [Rel density] 1.015 Invalid Interpretation Code 1.005-1.03 0 [facility] Comment on above: Performed By: #### 2 719586, [id number] ####[facility] [address] [place] [address] Type of Urine collection method Clean Catch Normal [facility] Comment on above: Performed By: #### 2 923431, [id number] ####[facility] [address] [place] [address] Urobilinogen Qn (U) 0.2 {Chan'U}/dL Normal 0.0-1.0 [facility] Comment on above: Performed By: #### 2 432786, [id number] ####[facility] [address] [place] [address] WBC Auto Ql (U) 2+ Abnormal Negative [facility] Comment on above: Performed By: #### 2 316536, [id number] ####[facility] [address] [place] [address] WBC LM.HPF (Urine sed) [#/Area] 26-30 Abnormal 0-5 [facility] Comment on above: Performed By: #### 2 011412, [id number] ####[facility] [address] [place] [address] eGFRon 11-15-2023 eGFR 46 mL/min/1.73 m2 Low >=59 [facility] Comment on above: Order Comment: Order added by Discern Expert. Performed By: #### 2 647666, [id number], [id number] ####[facility] [address] [place] [address] C Urineon 11-14-2023 Bacteria identified Cx Nom (U) Microbiology PROCEDURE: Urine Culture [R1] SOURCE: U Random BODY SITE: COLLECTED DATE/TIME: 11/11/2023 19:03 EST RECEIVED DATE/TIME: 11/12/2023 17:45 EST START DATE/TIME: 11/12/2023 17:45 EST FREE TEXT SOURCE: BRINA TAMEZ, Amarilis TORRES MD, Amarilis FINAL REPORTS Final Report [] Verified Date/Time: 11/14/2023 10:08 EST 1,000 cfu/ml Mixed skin contaminants Performing Locations R1: This test was performed at: [facility], [address] [place] [address], [address] , , [facility] Comment on above: Performed By: #### 2 849751 ####[facility] [address] [place] [address] Enteric Panel by PCRon 11-13 C. coli+jejuni+upsaliensi s DNA ELSI+non-probe Ql (Stl) Not detected [facility] Comment on above: Result Comment: Test ing was performed utilizing reverse straddle truck driver (RT), polymerase chain reaction (PCR), and array hybridization to detect specific gastrointestinal microbial nucleic acid gene sequences associated with the following pathogenic bacteria and viruses:Campylobacter Group (composed of C. coli, C. jejuni, and C. mayito), Salmonella species, Shigella species (including S. dysenteriae, S. boydii, S. sonnei and S. flexneri), Vibrio Group (composed of V. cholera and V. parahaemolyticus), Yersinia enterocolitica, Norovirus GI/GII, and Rotavirus A. In addition, EPdetects Shiga toxin 1 gene and Shiga toxin 2 gene virulence markers. Shiga toxin producing E. coli (STEC) typically harbor one or both genes that encode for Shiga toxins 1 and 2. Campylobacter group, Salmonella species, Shigella species, Vibrio group, Rotavirus A, Shiga Toxin 1, Shiga Toxin 2, Norovirus GI/GII, and Yersinia enterocolitica were tested by Verigene nulcleic acid test. Performed By: #### 1 [id number], 02254460, 72196284, [id number], [id number], [id number] ####[facility] [address] [place] [address] E. coli stx1+stx2 genes ELSI+non-probe Ql (Stl) Negative Normal [facility] Comment on above: Performed By: #### 1 1366889, 72262726, 02782031, [id number], [id number], [id number] ####[facility] [address] [place] [id number] Enteric Panel by PCR Negative Normal Fish er [facility] Enteric Panel Intrl QC Pass Normal Fi [facility] Comment on above: Result Comment: Test ing was performed utilizing reverse straddle truck driver (RT), polymerase chain reaction (PCR), and array hybridization to detect specific gastrointestinal microbial nucleic acid gene sequences associated with the following pathogenic bacteria and viruses:Campylobacter Group (composed of C. coli, C. jejuni, and C. mayito), Salmonella species, Shigella species (including S. dysenteriae, S. boydii, S. sonnei and S. flexneri), Vibrio Group (composed of V. cholera and V. parahaemolyticus), Yersinia enterocolitica, Norovirus GI/GII, and Rotavirus A. In addition, EPdetects Shiga toxin 1 gene and Shiga toxin 2 gene virulence markers. Shiga toxin producing E. coli (STEC) typically harbor one or both genes that encode for Shiga toxins 1 and 2. Performed By: #### 1 9502615, 59578999, 38328731, [id number], [id number], [id number] ####[facility] [address] [place] [address] Norovirus genogroup I+II RNA ELSI+non-probe Ql (Stl) Not detected Normal [facility] Comment on above: Performed By: #### 1 0096901, 55733955, 94414077, [id number], [id number], [id number] ####[facility] [address] [place] [address] Rotavirus A RNA ELSI+non-probe Ql (Stl) Not detected Normal [facility] Comment on above: Performed By: #### 1 9182518, 21284455, 77104830, [id number], 603752725, [id number] ####[facility] [address] [place] [address] S. enterica+bongori DNA ELSI+non-probe Ql (Stl) Not detected Normal [facility] Comment on above: Result Comment: This test result should be correlated with clinical presentations and medical history by a healthcare provider to determine its clinical significance. Performed By: #### 1 0198856, 74515191, 25134816, [id number], 492361703, [id number] ####[place] [address]157 Shigella species+EIEC invasion plasmid antigen H ipaH gene ELSI+non-probe Ql (Stl) Not detected Normal [facility] Comment on above: Performed By: #### 1 9071820, 89614912, 31960308, [id number], 262353090, [id number] ####[facility] [address] [place] [address] V. cholerae+parahaemolyti cus+vulnificus DNA ELSI+non-probe Ql (Stl) Not detected Normal [facility] Comment on above: Performed By: #### 1 7121920, 04222627, 84829907, 8530263943, 108587028, [id number] ####[facility] [address] [place] [address] Y. enterocolitica DNA ELSI+non-probe Ql (Stl) Not detected Normal [facility] Comment on above: Performed By: #### 1 1208837, 78554726, 98449346, 6077967857, 711997031, [id number] ####[facility] [address] [place] [address] C. diff by PCRon 11-12-2023 C. diff by PCR Specimen Negative fo r toxigenic C. difficile by DNA amplification. Duplicate specimens will not be accepted on this patient for the next 7 days. Published data on the sensitivity of molecular assays suggest there is no diagnostic value in repeat testing of samples in close time sequence. Normal Negative [facility] Comment on above: Result Comment: This test result should be correlated with clinical presentations and medical history by a healthcare provider to determine its clinical significance.\.br\.br\ Other Comment: Order added by Discern Expert. Clostridium difficile by PCR Negative Normal Negative [facility] Comment on above: Order Comment: Order added by Discern Expert. Result Comment: This test result should be correlated with clinical presentations and medical history by a healthcare provider to determine its clinical significance. Performed By: #### 1 7207259, 69713376, 38593756, [id number], 403566460, [id number] ####[facility] [address] [place] [address] CDiff PCRon 11-12-2023 CDiff PCR Specimen has been fo und to be acceptable for C. difficile testing. Normal [facility] Cdiff Specimen Acceptable Acceptable Normal [facility] Comment on above: Performed By: #### 1 4492181, 18054463, 24833630, 8607625353, 369471250, [id number] ####[facility] [address] [place] [address] Order Cancelled No, PCR to follow Normal Fi [facility] Comment on above: Performed By: #### 1 1126096, 21817784, 83263363, [id number], 360745373, [id number] ####[facility] [address] [place] [address] Ambulatory Visit Summaryon 0 11-11-2023 Ambulatory Visit Summary ALICIA BARRIENTOS :1945 Visit Date:11/11/2023 Ambulatory Visit Instructions Your Diagnosis Recurrent falls while walking, Falls frequently Chronic diarrhea Rib pain on left side Chronic kidney disease, stage 3a Benign hypertension Benign hypertension with chronic kidney disease, stage III History of cerebrovascular accident (CVA) due to ischemia Aneurysm of internal carotid artery Atherosclerosis of barrow coronary artery Mixed hyperlipidemia Overweight Chronic kidney disease, stage 3 unspecified Tests Performed Urnls Dip Stick Auto w/ Microscopy POC 615[address] Your Care Team Attending Physician - Amarilis TORRES MD Primary Care Physician - Amarilis TORRES MD This Is Your Medications List amlodipine (amLODIPine 2.5 mg Tab) aspirin (aspirin 81 mg Oral EC Tab) atorvastatin (atorvastatin 80 mg Tab) lisinopril (lisinopril 40 mg Tab) potassium chloride (potassium chloride 20 mEq ER Tab) Procedures Performed Choley, double bypass, Left total knee, Total hyst. Discharge Vitals Temperature (Temporal Artery) 36.9 ?C Heart Rate (Peripheral) 65 Respiratory Rate 16 Blood Pressure 120/70 Height 142.2 cm Height 56 in Weight 51.5 kg Weight 113.3 lb BMI 25.47 What to do next Scheduled Follow-Up Appointments Friday 6:20 PM EST With: Amarilis TORRES MD Where: [facility] [place] Normal [facility] Family Medicine Office/Clini c Noteon 11-11-2023 Family Medicine Office/Clinic Note Chief Complaint 6mo chk up, rf meds to [facility]. pt states she has fallen 3-4 times in the last couple months and has been experiencing pain under left rib cage, pt also c/o of diarrhea that comes on very quickly and decreased appetite, needs shingrix History of Present Illness The patient is here for health maintenance checkup. The patient has had several falls and complaints of pain under her rib cage. She has fallen about 4 times in the last several months. Her last fall was about 3 or 4 weeks ago. She was sitting at home by herself because the bus was picking her up at 10. She walked into her bedroom and her legs gave out. She tried to get up, but she could not. She cried, prayed, and finally crawled over to the phone. She laid there for about 45 minutes. She called the grandsons who helped her up immediately. She also fell at [facility] too. She did not have any warning signs. She is not walking as well as she was before. She does not use her walker with regularity if family is around because they usually hold her hand.. She was using a walker at [facility], but the day after the fall, her boys took her to the store and bought a cane so she can use it in the house. She used to walk every day outdoors but now she hardly walks at all due to the cold weather and going to the [facility] every day.. She has leg cramps at nighttime. Absolutely denies any acute sudden neurologic deficit such as facial droop or unilateral weakness despite history of CVA. She has not been eating well lately. She completely lost her appetite. She knows she has to eat, but sometimes she only eats 1 meal a day. As soon as she eats, she has to go to the bathroom for a bowel movement. This has been going on for the last 1 to 2 months. She has at least 4 to 5 bowel movements a day. Up to 8 maximum. Her stools are runny. No one has been sick at the house. She has not traveled. She has not changed anything in her foods or water source. Sometimes water makes her go to the bathroom. She does not drink much pop. She used to get bladder infections with pain. She is always cold. She has not taken any antibiotics recently for dental or sinus issues. She eats food at the [facility] on [address]. The diarrhea does wake her up from sleep sometimes Very acutely denies any rectal bleeding. Has had a partial bowel resection at [facility] for diverticulitis. Believes it was at least 10 to 12 years ago. Chart is not demonstrating this history. Currently no severe pain in the abdomen. No fevers or chills. She has left lower rib pain. It hurts her more when she lays in bed. Distinctly remembers landing on it when she fell. I did review with son-in-law that his had called earlier in the day regarding concerns about mom's emotional health and change behaviors see note in the chart Review of Systems PHQ Score Initial Depression Screen Score: 0 SCORE See HPI otherwise negative Physical Exam Vitals & Measurements T: 36.9 ?C(Temporal Artery) HR: 65(Peripheral) RR: 16 BP: 120/70 SpO2: 93% HT: 56 in HT: 142.2 cm WT: 51.5 kg WT: 113.3 lb BMI: 25.47 The patient is well hydrated, adequately groomed, very short stature. Ambulates with a wheeled walker. Conjunctivae clear. Pupils are symmetric, non-icteric sclerae. Oropharynx is pink and moist. Supple. No JVD, no bruits. Auscultation of the lungs diminished to auscultation. Regular rate and rhythm. No murmur, gallop, or rub. Abdomen: Overweight, hyperactive bowel sounds, nontender. No organomegaly. Rectal exam deferred. Exquisitely tender along the left lateral rib cage in the mid axillary line, but no crepitance. Skin is warm, dry, pale. She is not demonstrating any tremors. Fire [employer] strength is symmetric. Range of motion in the upper and lower extremities within normal limits. Flexion and extension of the hips, the knees, the ankles all within normal limits with good strength. No obvious tremor. Cooperative with reasonable insight Assessment/Plan 1. Recurrent falls while walking (R29.6: Repeated falls) Moderately concerned by patient's persistent recurrent falls. Certainly with cerebrovascular disease this could be progressing but I do have concerns for generalized deconditioning. Agreeable to physical therapy consultation. Encouraged continued use of a walker, cane good lighting and notify me of further injuries. May need to give consideration to an emergency call button Ordered: Body Mass Index (BMI) documented 3008F Current tobacco non-user 1036F Depression Screening Negative 3352F Discharge medications reconciled with current medications in outpatient record 1111F Fall Risk Screen 2 or more w/injury 1100F [facility] Outpatient Physical Therapy Evaluate Patient, Develop a Plan of Care, & Implement Plan Influenza immunization administered or previously received 4274F Most recent diastolic blood pressure <80 mm Hg 3078F Most recent LDL-C < 100 mg/Dl 3048F Pneumonia Vax administered or previously received 4040F Systolic BP <130 mm Hg (Most R (more content not included)... Normal [facility] Comment on above: Result Comment: Elec tronically Signed By: BRIAN TAMEZ, Amarilis\.br\Date and Time Signed: 11/11/23 23:22 EST Patient Educationon 11-09-19 24 Patient Education Nephrology Chronic Kidney Disease, Adult Chronic kidney disease (CKD) occurs when the kidneys are slowly and permanently damaged over a long period of time. The kidneys are a pair of organs that do many important jobs in the body, including: ? Removing waste and extra fluid from the blood to make urine. ? Making hormones that maintain the amount of fluid in tissues and blood vessels. ? Maintaining the right amount of fluids and chemicals in the body. A small amount of kidney damage may not cause problems, but a large amount of damage may make it hard or impossible for the kidneys to work right. Steps must be taken to slow kidney damage or to stop it from getting worse. If steps are not taken, the kidneys may stop working permanently (end-stage renal disease, or ESRD). Most of the time, CKD does not go away, but it can often be controlled. People who have CKD are usually able to live full lives. What are the causes? The most common causes of this condition are diabetes and high blood pressure (hypertension). Other causes include: ? Cardiovascular diseases. These affect the heart and blood vessels. ? Kidney diseases. These include: ? Glomerulonephritis, or inflammation of the tiny filters in the kidneys. ? Interstitial nephritis. This is swelling of the small tubes of the kidneys and of the surrounding structures. ? Polycystic kidney disease, in which clusters of fluid-filled sacs form within the kidneys. ? Renal vascular disease. This includes disorders that affect the arteries and veins of the kidneys. ? Diseases that affect the body's defense system (immune system). ? A problem with urine flow. This may be caused by: ? Kidney stones. ? Cancer. ? An enlarged prostate, in males. ? A kidney infection or urinary tract infection (UTI) that keeps coming back. ? Vasculitis. This is swelling or inflammation of the blood vessels. What increases the risk? Your chances of having kidney disease increase with age. The following factors may make you more likely to develop this condition: ? A family history of kidney disease or kidney failure. Kidney failure means the kidneys can no longer work right. ? Certain genetic diseases. ? Taking medicines often that are damaging to the kidneys. ? Being around or being in contact with toxic substances. ? Obesity. ? A history of tobacco use. What are the signs or symptoms? Symptoms of this condition include: ? Feeling very tired (lethargic) and having less energy. ? Swelling, or edema, of the face, legs, ankles, or feet. ? Nausea or vomiting, or loss of appetite. ? Confusion or trouble concentrating. ? Muscle twitches and cramps, especially in the legs. ? Dry, itchy skin. ? A metallic taste in the mouth. ? Producing less urine, or producing more urine (especially at night). ? Shortness of breath. ? Trouble sleeping. CKD may also result in not having enough red blood cells or hemoglobin in the blood (anemia) or having weak bones (bone disease). Symptoms develop slowly and may not be obvious until the kidney damage becomes severe. It is possible to have kidney disease for years without having symptoms. How is this diagnosed? This condition may be diagnosed based on: ? Blood tests. ? Urine tests. ? Imaging tests, such as an ultrasound or a CT scan. ? A kidney biopsy. This involves removing a sample of kidney tissue to be looked at under a microscope. Results from these tests will help to determine how serious the CKD is. How is this treated? There is no cure for most cases of this condition, but treatment usually relieves symptoms and prevents or slows the worsening of the disease. Treatment may include: ? Diet changes, which may require you to avoid alcohol and foods that are high in salt, potassium, phosphorous, and protein. ? Medicines. These may: ? Lower blood pressure. ? Control blood sugar (glucose). ? Relieve anemia. ? Relieve swelling. ? Protect your bones. ? Improve the balance of salts and minerals in your blood (electrolytes). ? Dialysis, which is a type of treatment that removes toxic waste from the body. It may be needed if you have kidney failure. ? Managing any other conditions that are causing your CKD or making it worse. Follow these instructions at home: Medicines ? Take ugef-slc-nzygmzg and prescription medicines only as told by your health care provider. The amount of some medicines that you take may need to be changed. ? Do not take any new medicines unless approved by your health care provider. Many medicines can make kidney damage worse. ? Do not take any vitamin and mineral supplements unless approved by your health care provider. Many nutritional supplements can make kidney damage worse. Lifestyle ? Do not use any products that contain nicotine or tobacco, such as cigarettes, e-cigarettes, and chewing tobacco. If you need help quitting, ask your (more content not included)... Normal [facility] Auto Diffon 10-10-2023 Basophils/100 WBC (Bld) 0.4 % Normal 0.0-2.0 [facility] Comment on above: Order Comment: Order Added by Discern Expert. Performed By: #### 1 [id number], 2432710, 2238559, 9815070, 8961283 ####[facility] [address] [place] [address] Basophils/Leukocytes Auto (Bld) [Pure # fraction] 0.1 E9/L Normal 0.0-0.2 [facility] Comment on above: Order Comment: Order Added by Discern Expert. Performed By: #### 1 5344834, 2796485, 2951072, 8435505, 1233643 ####[address] [place] [address] Eosinophils/100 WBC (Bld) 1.3 % Normal 0.0-8.0 [facility] Comment on above: Order Comment: Order Added by Discern Expert. Performed By: #### 1 3773797, 5015151, 9583572, 5722779, 3776368 ####[address] [address] Eosinophils/Leukocytes Auto (Bld) [Pure # fraction] 0.2 E9/L Normal 0.0-0.5 [facility] Comment on above: Order Comment: Order Added by Discern Expert. Performed By: #### 1 7392385, 4491299, 6601657, 5900096, 6230048 ####[address] [address] Lymphocytes/100 WBC (Bld) 9.0 % Low 14.0-50.0 [facility] Comment on above: Order Comment: Order Added by Discern Expert. Performed By: #### 1 1405050, 1063360, 9771960, 3442534, 7231775 ####[address] [place] [address] Lymphocytes/Leukocytes Auto (Bld) [Pure # fraction] 1.3 E9/L Normal 1.0-4.0 [facility] Comment on above: Order Comment: Order Added by Discern Expert. Performed By: #### 1 7006345, 0526381, 7760957, 9048900, 3738640 ####[address] [address] Monocytes/100 WBC (Bld) 9.5 % Normal 4.0-14.0 [facility] Comment on above: Order Comment: Order Added by Discern Expert. Performed By: #### 1 0988173, 2566760, 1885279, 0197234, 4384625 ####[address] [place] [address] Monocytes/Leukocytes Auto (Bld) [Pure # fraction] 1.3 E9/L High 0.2-1.0 [facility] Comment on above: Order Comment: Order Added by Discern Expert. Performed By: #### 1 5404082, 5169860, 0332060, 1919671, 2565367 ####[address] [address] Neutrophils/100 WBC (Bld) 79.8 % High 36.0-75.0 [facility] Comment on above: Order Comment: Order Added by Discern Expert. Performed By: #### 1 9063586, 5116173, 5865778, 6997238, 7186968 ####[address] [address] Neutrophils/Leukocytes Auto (Bld) [Pure # fraction] 11.3 E9/L High 2.0-7.5 [facility] Comment on above: Order Comment: Order Added by Discern Expert. Performed By: #### 1 8633749, 9681022, 8014732, 0618185, 1096789 ####[address] [address] CBC w/ Auto Diffon 3 Erythrocyte distribution width (RBC) [Ratio] 13.6 % Normal 10.9-14.2 [facility] Comment on above: Performed By: #### 1 1078390, 4970263, 1655543, 2270963, 4400442 ####[address] [address] Hematocrit (Bld) [Volume fraction] 39.9 % Normal 34.0-46.0 [facility] Comment on above: Performed By: #### 1 6310301, 3059255, 2694328, 2656381, 5682689 ####[facility] [address] [place] [address] Hemoglobin (Bld) [Mass/Vol] 13.1 g/dL Normal 12.0-16.0 [facility] Comment on above: Performed By: #### 1 2470659, 6174441, 1021068, 6581650, 2274882 ####[address] [address] MCH (RBC) [Entitic mass] 28.4 pg Normal 27.0-34.0 [facility] Comment on above: Performed By: #### 1 1207946, 0475551, 9834674, 3771258, 1704751 ####[address] [address] MCHC (RBC) [Mass/Vol] 32.9 g/dL Normal 31.4-36.0 [facility] Comment on above: Performed By: #### 1 7734531, 7883416, 0191918, 9696652, 7999154 ####[address] [address] MCV (RBC) [Entitic vol] 86.4 fL Normal 80.0-100.0 [facility] Comment on above: Performed By: #### 1 9667229, 0191577, 1487054, 7129982, 8542266 ####[address] [address] Platelet mean volume (Bld) [Entitic vol] 7.4 fL Normal 6.4-10.8 [facility] Comment on above: Performed By: #### 1 1986278, 0801741, 3140562, 0541972, 6928149 ####[address] [address] Platelets (Bld) [#/Vol] 473.0 E9/L Normal 150.0-500. 0 [facility] Comment on above: Performed By: #### 1 5826926, 7162863, 3271830, 6776736, 1791598 ####[facility] [place] [address] RBC (Bld) [#/Vol] 4.6 E12/L Normal 4.3-5.9 [facility] Comment on above: Performed By: #### 1 4198121, 2412717, 1063374, 2700483, 8964973 ####[facility] [address] [place] [address] WBC corrected for nucl RBC Auto (Bld) [#/Vol] 14.2 E9/L High 4.0-11.0 [facility] Comment on above: Performed By: #### 1 4099356, 6562617, 2868941, 8774785, 6766977 ####[address] [address] CMPon 10-10-2023 Albumin [Mass/Vol] 3.0 g/dL Low 3.3-5.0 [facility] Comment on above: Performed By: #### 1 1912048, 9633015, 4964127, 4566553, 5510724 ####[address] [place] [address] Albumin/Globulin [Mass ratio] 0.9 {ratio} Low 1.1-2.2 [facility] Comment on above: Performed By: #### 1 3311619, 3010638, 7278322, 4253670, 1953147 ####[address] [place] [address] Alk Phos 88 Int._Unit/L Normal 21-98 [facility] Comment on above: Performed By: #### 1 8280724, 0988319, 0917049, 8393372, 1847829 ####[address] [place] [address] ALT 20 Int._Unit/L Normal 6-46 [facility] Comment on above: Performed By: #### 1 8927611, 4538150, 7124894, 4765886, 4498486 ####[facility] [address] [place] [address] Anion gap [Moles/Vol] 12 mmol/L Normal 6-16 [facility] Comment on above: Performed By: #### 1 3901821, 3513295, 9479762, 7948051, 6593904 ####[facility] [address] [place] [address] AST 29 Int._Unit/L Normal 5-43 [facility] Comment on above: Performed By: #### 1 0766602, 8400944, 4547988, 7772178, 9895108 ####[facility] [address] [place] [address] Bili Total 0.5 mg/dL Normal 0.0-1.1 [facility] Comment on above: Performed By: #### 1 3264322, 8066999, 3848790, 4815659, 6600641 ####[facility] [address] [place] [address] BUN/Creat Ratio 14 No Units Normal 10-20 [facility] Comment on above: Performed By: #### 1 1728149, 1671611, 2504402, 9746468, 2811302 ####[facility] [address] [place] [address] Calcium [Mass/Vol] 9.8 mg/dL Normal 8.9-11.1 [facility] Comment on above: Performed By: #### 1 1147240, 8470785, 4104131, 7538751, 4258401 ####[facility] [address] [place] [address] Chloride [Moles/Vol] 108 mmol/L Normal 101-111 [facility] Comment on above: Performed By: #### 1 1391054, 8663054, 4311534, 3585734, 4175680 ####[facility] [address] [place] [address] CO2 [Moles/Vol] 22 mmol/L Normal 21-31 [facility] Comment on above: Performed By: #### 1 7871372, 8836952, 3275812, 5959229, 2166676 ####[facility] [address] [place] [address] Creatinine [Mass/Vol] 1.0 mg/dL Normal 0.5-1.3 [facility] Comment on above: Performed By: #### 1 0966602, 9659942, 5587415, 9463402, 1684923 ####[facility] [address] [place] [address] Globulin (S) [Mass/Vol] 3.5 g/dL Normal 1.4-4.0 [facility] Comment on above: Performed By: #### 1 4155917, 2902594, 9834390, 4013558, 2303231 ####[facility] [address] [place] [address] Glucose [Mass/Vol] 103 mg/dL Normal 55-199 [facility] Comment on above: Performed By: #### 1 0069764, 8075935, 6903765, 4210384, 4333225 ####[facility] [address] [place] [address] Potassium [Moles/Vol] 4.7 mmol/L Normal 3.5-5.3 [facility] Comment on above: Performed By: #### 1 3978571, 4701688, 9767932, 7183892, 1144577 ####[facility] [address] [place] [address] Protein [Mass/Vol] 6.5 g/dL Normal 6.0-7.8 [facility] Comment on above: Performed By: #### 1 8044731, 3464959, 6215014, 3614768, 7602747 ####[facility] [address] [place] [address] Sodium [Moles/Vol] 137 mmol/L Normal 135-145 [facility] Comment on above: Performed By: #### 1 4051906, 0246566, 3439624, 5171300, 5596137 ####[facility] [address] [place] [address] Urea nitrogen [Mass/Vol] 14 mg/dL Normal 5-21 [facility] Comment on above: Performed By: #### 1 4581733, 2701739, 6573866, 5662190, 9754568 ####[facility] [address] [place] [address] Consent for Treatmenton 09-26 Consent for Treatment [id number] Normal [facility] Lipid Panelon 10-10-2023 Cholesterol [Mass/Vol] 108 mg/dL Low 120-200 [facility] Comment on above: Performed By: #### 1 9615355, 3570997, 7534846, 8869512, 9028101 ####[facility] [address] [place] [address] Cholesterol in HDL [Mass/Vol] 43 mg/dL Invalid Interpretation Code [facility] Comment on above: Result Comment: '>= 60 LOW RISK' '<= 40 HIGH RISK' Performed By: #### 1 3555429, 6977384, 8530761, 2230344, 5052500 ####[facility] [address] [place] [address] Cholesterol in LDL [Mass/Vol] 56 mg/dL Normal <=129 [facility] Comment on above: Performed By: #### 1 0778098, 5449394, 8307359, 8134039, 3515894 ####[facility] [address] [place] [address] Cholesterol in VLDL [Mass/Vol] 13 mg/dL Normal 7-40 [facility] Comment on above: Performed By: #### 1 4137979, 8979325, 0475850, 4269755, 3741764 ####[facility] [address] [place] [address] Triglyceride [Mass/Vol] 66 mg/dL Normal <=149 [facility] Comment on above: Performed By: #### 1 6436217, 6771157, 4804318, 1596733, 9589025 ####[facility] [address] [place] [address] Reminderson 10-10-2023 Reminders - From: Amarilis TORRES MD To: [facility] - Clinical; Sent: 10/10/2023 14:13:29 EST Show up: 10/10/2023 14:13:00 EST Subject: Ambulatory Reminder regarding labs Due Date/Time: 10/11/2023 14:12:00 EST Please notify patient CBC is stable without anemia. Kidney functions have improved, continue maintaining good fluid hydration with water. Liver functions and electrolytes and glucose are stable. Lipids are very well-controlled therefore no change in the treatment regimen Results: Date Result Name Ind Value Ref Range 10/10/2023 8:59 WBC ((H)) 14.2 E9/L (4.0 - 11.0) 10/10/2023 8:59 RBC 4.6 E12/L (4.3 - 5.9) 10/10/2023 8:59 HGB 13.1 gm/dL (12.0 - 16.0) 10/10/2023 8:59 Hct 39.9 % (34.0 - 46.0) 10/10/2023 8:59 MCV 86.4 fL (80.0 - 100.0) 10/10/2023 8:59 MCH 28.4 pg (27.0 - 34.0) 10/10/2023 8:59 MCHC 32.9 gm/dL (31.4 - 36.0) 10/10/2023 8:59 RDW 13.6 % (10.9 - 14.2) 10/10/2023 8:59 Platelet 473.0 E9/L (150.0 - 500.0) 10/10/2023 8:59 MPV 7.4 fL (6.4 - 10.8) 10/10/2023 8:59 Neutro Auto ((H)) 79.8 % (36.0 - 75.0) 10/10/2023 8:59 Lymph Auto ((L)) 9.0 % (14.0 - 50.0) 10/10/2023 8:59 [place] Auto 9.5 % (4.0 - 14.0) 10/10/2023 8:59 Eos Auto 1.3 % (0.0 - 8.0) 10/10/2023 8:59 Basophil Auto 0.4 % (0.0 - 2.0) 10/10/2023 8:59 Neutro Absolute ((H)) 11.3 E9/L (2.0 - 7.5) 10/10/2023 8:59 Lymph Absolute 1.3 E9/L (1.0 - 4.0) 10/10/2023 8:59 [place] Absolute ((H)) 1.3 E9/L (0.2 - 1.0) 10/10/2023 8:59 Eos Absolute 0.2 E9/L (0.0 - 0.5) 10/10/2023 8:59 Basophil Absolute 0.1 E9/L (0.0 - 0.2) 10/10/2023 8:59 Glucose Lvl 103 mg/dL (55 - 199) 10/10/2023 8:59 BUN 14 mg/dL (5 - 21) 10/10/2023 8:59 Creatinine 1.0 mg/dL (0.5 - 1.3) 10/10/2023 8:59 eGFR ((L)) 57 mL/min/1.73 m2 (>=59 - ) 10/10/2023 8:59 BUN/Creat Ratio 14 (10 - 20) 10/10/2023 8:59 Sodium Lvl 137 mmol/L (135 - 145) 10/10/2023 8:59 Potassium Lvl 4.7 mmol/L (3.5 - 5.3) 10/10/2023 8:59 Chloride 108 mmol/L (101 - 111) 10/10/2023 8:59 CO2 22 mmol/L (21 - 31) 10/10/2023 8:59 AGAP 12 mEq/L (6 - 16) 10/10/2023 8:59 Calcium Lvl 9.8 mg/dL (8.9 - 11.1) 10/10/2023 8:59 Alk Phos 88 Int._Unit/L (21 - 98) 10/10/2023 8:59 ALT 20 Int._Unit/L (6 - 46) 10/10/2023 8:59 AST 29 Int._Unit/L (5 - 43) 10/10/2023 8:59 Total Protein 6.5 gm/dL (6.0 - 7.8) 10/10/2023 8:59 Albumin Lvl ((L)) 3.0 gm/dL (3.3 - 5.0) 10/10/2023 8:59 Globulin 3.5 gm/dL (1.4 - 4.0) 10/10/2023 8:59 A/G Ratio ((L)) 0.9 (1.1 - 2.2) 10/10/2023 8:59 Bili Total 0.5 mg/dL (0.0 - 1.1) 10/10/2023 8:59 Chol ((L)) 108 mg/dL (120 - 200) 10/10/2023 8:59 Trig 66 mg/dL ( - <=149) 10/10/2023 8:59 HDL 43 mg/dL 10/10/2023 8:59 LDL Direct 56 mg/dL ( - <=129) 10/10/2023 8:59 VLDL 13 mg/dL (7 - 40) Pt Notified, voiced understanding Normal [facility] eGFRon 10-10-2023 eGFR 57 mL/min/1.73 m2 Low >=59 [facility] Comment on above: Order Comment: Order added by Discern Expert. Performed By: #### 1 [id number], 5073149, 4854046, 9473027, 5858942 ####[facility] [address] [place] [address] Consent for Immunizationon 0 05-14-2023 Consent for Immunization [id number]:127 Normal [facility] Ambulatory Visit Summaryon 0 05-13-2023 Ambulatory Visit Summary LORENZOFAUSTO ALICIA Givens :1945 Visit Date:05/13/2023 Ambulatory Visit Instructions Your Diagnosis Chronic kidney disease, stage 3a Benign hypertension with chronic kidney disease, stage III Benign hypertension Atherosclerosis of barrow coronary artery Aneurysm of internal carotid artery Mixed hyperlipidemia History of cerebrovascular accident (CVA) due to ischemia Overweight BMI 27.0-27.9,adult Encounter for immunization Your Care Team Attending Physician - Amarilis TORRES MD Primary Care Physician - Amarilis TORRES MD This Is Your Medications List amlodipine (amLODIPine 2.5 mg Tab) aspirin (aspirin 81 mg Oral EC Tab) atorvastatin (atorvastatin 80 mg Tab) lisinopril (lisinopril 40 mg Tab) potassium chloride (potassium chloride 20 mEq ER Tab) Procedures Performed Choley, double bypass, Left total knee, Total hyst. Discharge Vitals Heart Rate (Peripheral) 52 Respiratory Rate 16 Blood Pressure 138/82 Height 56 in Height 142.2 cm Weight 121.88 lb Weight 55.4 kg BMI 27.4 What to do next Scheduled Follow-Up Appointments Friday 3:30 PM EDT With: Where: [facility] Katharina Invalid Interpretation Code [address] [place] [address]- \. br\ You Need to Schedule the Following Appointmen ts\.br\ Follow Up with BRIAN TAMEZ, CHRISTOPHER Guerra When: Within 6 months\.br \ Comments:\ .br\ get labs at [facility] in advance perhaps in September, see me in October\.b r\ Where:\.br \ [address] [facility]\. br\ [place] [address]-\.br \ \. br\ You Need to Complete the Following\ .br\ CBC w/ Auto Diff, Blood, Routine collect, *Est. 05/13/23 due within 6 months, Order for future visit, Lab Collect, Chronic renal impairment , stage 3 (moderate) [facility] Family Medicine Office/Clini c Noteon 05-13-2023 Family Medicine Office/Clinic Note Chief Complaint 6mo chk up, needs tetanus & shingrix, rf meds to optum History of Present Illness Presenting for general checkup. Compliant with all current medications. Blood pressures are not routinely followed but no sense of elevation, denies lower extremity edema, palpitations syncope shortness of breath headache or visual disturbance. Absolutely no issues with TIA symptomatology or stroke recurrence. Speech has been relatively stable. Reviewed labs from earlier in the year, chronic renal insufficiency. Admits that she probably does not drink as much water as she should. No urinary symptoms no problems with bowels. She has had shingles vaccine in the distant past when it was a single dose. She defers current dose. She is agreeable to tetanus booster today. Mood is fairly stable. Sleeps well at night. Family remains very supportive and she does go to the [facility] to 5 days/week. She loves to play Euchre!! Review of Systems PHQ Score Initial Depression Screen Score: 0 see HPI otherwise neg Physical Exam Vitals & Measurements HR: 52(Peripheral) RR: 16 BP: 138/82 SpO2: 95% HT: 56 in HT: 142.2 cm WT: 55.4 kg WT: 121.88 lb BMI: 27.4 Constitutional: Well-groomed adequately hydrated. HEENT: Wearing corrective lenses conjunctiva clear pupils are symmetric. Grossly normal speech. Neck is supple no overt JVD or bruits. Cardiothoracic: Regular rate and rhythm. Distant heart sounds no murmur gallop or rub. Peripheral pulses +1 no edema Respiratory: CTA bilaterally Abdomen/GI: Soft nontender no organomegaly Genitourinary: Deferred Musculoskeletal: Well-developed. Short stature. Neurologic: Ambulatory with a wheeled walker. No discrete tremors. Integument: Skin warm and dry pale. No petechiae or bruising Psychiatric: Cooperative insightful talkative Assessment/Plan 1. Chronic kidney disease, stage 3a (N18.31: Chronic kidney disease, stage 3a) Reviewed with patient the utmost importance of always maintaining good fluid hydration and avoiding any OTC anti-inflammatories which act as nephrotoxic substances. Encouraging her to drink more water on a daily basis and certainly before laboratories. 2. Benign hypertension with chronic kidney disease, stage III (I12.9: Hypertensive chronic kidney disease with stage 1 through stage 4 chronic kidney disease, or unspecified chronic kidney disease) Blood pressure is well controlled on recheck. Understands that long-term hypertension certainly increases the risk of kidney disease. Compliance with medication diet and lifestyle very important Ordered: CBC w/ Auto Diff Comprehensive Metabolic Panel Lipid Panel 3. Benign hypertension (I10: Essential (primary) hypertension) The importance of the following were all reviewed with the patient: -Take Rx(s )as prescribed. There are simple Lifestyle Modifications that you can do to reduce your blood pressure. -Weight Reduction -Follow the DASH eating plan. More information about this eating plan can be found here: https://www.nhlbi.nih.gov/h ealth/health-topics/topics/ dash -Reduce Sodium (Salt) Intake to 2000mg per day. -Use Moderation when consuming alcohol. - To improve your health we recommend increasing your level of moderate exercise to at least 2.5 hrs per week. For more information, please visit the CDC Exercise and Fitness Recommendations at www.cdc.gov/physicalactivit y/basics/index.htm Ordered: CBC w/ Auto Diff Comprehensive Metabolic Panel Lipid Panel 4. Atherosclerosis of barrow coronary artery (I25.10: Atherosclerotic heart disease of barrow coronary artery without angina pectoris) History of CAD. Remains compliant with calcium salas OZZY inhibitor aspirin and high intensity statin to prevent cardiovascular disease progression. Always remain vigilant for anginal equivalents. Ordered: CBC w/ Auto Diff Comprehensive Metabolic Panel Lipid Panel 5. 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 She is having no symptomatology or worsening of symptoms. Agrees to continue diligent anticoagulation with aspirin high intensity statin and blood pressure control. Always seek emergent care with any acute TIA symptomatology as time is brain Ordered: CBC w/ Auto Diff Comprehensive Metabolic Panel Lipid Panel 6. Mixed hyperlipidemia (E78.2: Mixed hyperlipidemia) Maintaining high intensity statin along with dietary compliance to prevent cardiovascular and cerebrovascular disease risk progression Ordered: CBC w/ Auto Diff Comprehensive Metabolic Panel Lipid Panel 7. 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 Ordered: CBC w/ Auto Diff Comprehensive Metabolic Panel Lipid Panel 8. Overweight (E66.3: Overweight) The standard range for ages 18 and older is >=18.5 and < 25 kg/m2. Your BMI toda (more content not included)... Normal [facility] Comment on above: Result Comment: Elec tronically Signed By: BRIAN TAMEZ, Amarilis\.br\Date and Time Signed: 05/13/23 19:21 EDT Patient Educationon 05-11-20 Patient Education Nephrology Chronic Kidney Disease, Adult Chronic kidney disease is when lasting damage happens to the kidneys slowly over a long time. The kidneys help to: ? Make pee (urine). ? Make hormones. ? Keep the right amount of fluids and chemicals in the body. Most often, this disease does not go away. You must take steps to help keep the kidney damage from getting worse. If steps are not taken, the kidneys might stop working forever. What are the causes? ? Diabetes. ? High blood pressure. ? Diseases that affect the heart and blood vessels. ? Other kidney diseases. ? Diseases of the body's disease-fighting system. ? A problem with the flow of pee. ? Infections of the organs that make pee, store it, and take it out of the body. ? Swelling or irritation of your blood vessels. What increases the risk? ? Getting older. ? Having someone in your family who has kidney disease or kidney failure. ? Having a disease caused by genes. ? Taking medicines often that harm the kidneys. ? Being near or having contact with harmful substances. ? Being very overweight. ? Using tobacco now or in the past. What are the signs or symptoms? ? Feeling very tired. ? Having a swollen face, legs, ankles, or feet. ? Feeling like you may vomit or vomiting. ? Not feeling hungry. ? Being confused or not able to focus. ? Twitches and cramps in the leg muscles or other muscles. ? Dry, itchy skin. ? A taste of metal in your mouth. ? Making less pee, or making more pee. ? Shortness of breath. ? Trouble sleeping. You may also become anemic or get weak bones. Anemic means there is not enough red blood cells or hemoglobin in your blood. You may get symptoms slowly. You may not notice them until the kidney damage gets very bad. How is this treated? Often, there is no cure for this disease. Treatment can help with symptoms and help keep the disease from getting worse. You may need to: ? Avoid alcohol. ? Avoid foods that are high in salt, potassium, phosphorous, and protein. ? Take medicines for symptoms and to help control other conditions. ? Have dialysis. This treatment gets harmful waste out of your body. ? Treat other problems that cause your kidney disease or make it worse. Follow these instructions at home: Medicines ? Take tcse-omx-msostem and prescription medicines only as told by your doctor. ? Do not take any new medicines, vitamins, or supplements unless your doctor says it is okay. Lifestyle ? Do not smoke or use any products that contain nicotine or tobacco. If you need help quitting, ask your doctor. ? If you drink alcohol: ? Limit how much you use to: ? 0?1 drink a day for women who are not . ? 0?2 drinks a day for men. ? Know how much alcohol is in your drink. In the [place] one drink equals one 12 oz bottle of beer (355 mL), one 5 oz glass of wine (148 mL), or one 1? oz glass of hard liquor (44 mL). ? Stay at a healthy weight. If you need help losing weight, ask your doctor. General instructions ? Follow instructions from your doctor about what you cannot eat or drink. ? Track your blood pressure at home. Tell your doctor about any changes. ? If you have diabetes, track your blood sugar. ? Exercise at least 30 minutes a day, 5 days a week. ? Keep your shots (vaccinations) up to date. ? Keep all follow-up visits. Where to find more information ? [place] [employer]: www.aakp.org ? National Kidney Foundation: www.kidney.org ? [place] [employer]: www.akfinc.org ? Life Options: www.lifeoptions.org ? Kidney School: www.kidneyschool.org Contact a doctor if: ? Your symptoms get worse. ? You get new symptoms. Get help right away if: ? You get symptoms of end-stage kidney disease. These include: ? Headaches. ? Losing feeling in your hands or feet. ? Easy bruising. ? Having hiccups often. ? Chest pain. ? Shortness of breath. ? Lack of menstrual periods, in women. ? You have a fever. ? You make less pee than normal. ? You have pain or you bleed when you pee or poop. These symptoms may be an emergency. Get help right away. Call your local emergency services (911 in the [place] ? Do not wait to see if the symptoms will go away. ? Do not drive yourself to the hospital. Summary ? Chronic kidney disease is when lasting damage happens to the kidneys slowly over a long time. ? Causes of this disease include diabetes and high blood pressure. ? Often, there is no cure for this disease. Treatment can help symptoms and help keep the disease from getting worse. ? Treatment may involve lifestyle changes, medicines, and dialysis. This information is not intended to replace advice given to you by your health care provider. Make sure you discuss any questions you have with your health care provider. Document Revised: 01/17/2021 Document Revie (more content not included)... Normal [facility] CHEMISTRYOrdered By: SYSTEM SYSTEM on 11-30-2022 Albumin [Mass/Vol] 3.9 g/dL Normal 3.3 - 5.0 gm/dL [facility] Albumin/Globulin [Mass ratio] 1.3 {ratio} Normal 1.1 - 2.2 [facility] ALP [Catalytic activity/Vol] 96 [iU]/d Normal 21 - 98 Int._Unit/ L [facility] ALT No additional P-5'-P [Catalytic activity/Vol] 11 [iU]/d Normal 6 - 46 Int._Unit/ L [facility] Anion gap [Moles/Vol] 12 mmol/L Normal 6 - 16 mEq/L [facility] AST [Catalytic activity/Vol] 18 [iU]/d Normal 5 - 43 Int._Unit/ L [facility] Bilirubin [Mass/Vol] 1.0 mg/dL Normal 0.0 - 1 .1 mg/dL [facility] Calcium [Mass/Vol] 9.6 mg/dL Normal 8.9 - 11. 1 mg/dL [facility] Chloride [Moles/Vol] 106 mmol/L Normal 101 - 1 11 mmol/L [facility] Cholesterol [Mass/Vol] 158 mg/dL Normal 120 - 200 mg/dL [facility] Cholesterol in HDL [Mass/Vol] 73 mg/dL Invalid Interpretation Code [facility] Cholesterol in LDL [Mass/Vol] 78 mg/dL Normal <=129mg/dL [facility] Cholesterol in VLDL [Mass/Vol] 9 mg/dL Normal 7 - 40 mg/dL [facility] CO2 [Moles/Vol] 26 mmol/L Normal 21 - 31 mmol/L [facility] Creatinine [Mass/Vol] 1.2 mg/dL Normal 0.5 - 1.3 mg/dL [facility] GFR/1.73 sq M.predicted among blacks MDRD (S/P/Bld) [Vol rate/Area] 53 mL/min/1.73 m2 Low >=59mL/min /1.73 m2 [facility] [place] S GFR/1.73 sq M.predicted among non-blacks MDRD (S/P/Bld) [Vol rate/Area] 43 mL/min/1.73 m2 Low >=59mL/min /1.73 m2 [facility] Chem S Globulin (S) [Mass/Vol] 3.1 g/dL Normal 1.4 - 4.0 gm/dL [facility] Glucose [Mass/Vol] 79 mg/dL Normal 55 - 199 mg/dL [facility] Potassium [Moles/Vol] 4.6 mmol/L Normal 3.5 - 5.3 mmol/L [facility] Protein [Mass/Vol] 7.0 g/dL Normal 6.0 - 7.8 gm/dL [facility] Sodium [Moles/Vol] 139 mmol/L Normal 135 - 145 mmol/L [facility] Triglyceride [Mass/Vol] 46 mg/dL Normal <=149mg/dL [facility] Urea nitrogen [Mass/Vol] 19 mg/dL Normal 5 - 21 mg/dL [facility] Urea nitrogen/Creatinine [Mass ratio] 16 mg/mg Normal 10 - 20 [facility] HEMATOLOGYOrdered By: SYSTEM SYSTEM on 11-30-2022 Basophils/100 WBC (Bld) 0.6 % Normal 0.0 - 2.0 % [facility] Basophils/Leukocytes Auto (Bld) [Pure # fraction] 0.0 E9/L Normal 0.0 - 0.2 E9/L [facility] Eosinophils/100 WBC (Bld) 4.9 % Normal 0.0 - 8.0 % [facility] Eosinophils/Leukocytes Auto (Bld) [Pure # fraction] 0.3 E9/L Normal 0.0 - 0.5 E9/L [facility] Lymphocytes/100 WBC (Bld) 21.4 % Normal 14.0 - 50.0 % [facility] Lymphocytes/Leukocytes Auto (Bld) [Pure # fraction] 1.5 E9/L Normal 1.0 - 4.0 E9/L [facility] Monocytes/100 WBC (Bld) 5.9 % Normal 4.0 - 14.0 % [facility] Monocytes/Leukocytes Auto (Bld) [Pure # fraction] 0.4 E9/L Normal 0.2 - 1.0 E9/L [facility] Neutrophils/100 WBC (Bld) 67.2 % Normal 36.0 - 75.0 % [facility] Neutrophils/Leukocytes Auto (Bld) [Pure # fraction] 4.7 E9/L Normal 2.0 - 7.5 E9/L [facility] HEMATOLOGYOrdered By: Janina Stoll on 11-30-2022 Erythrocyte distribution width (RBC) [Ratio] 14.5 % High 10.9 - 14.2 % [facility] Hematocrit (Bld) [Volume fraction] 49.7 % High 34.0 - 46.0 % [facility] Hemoglobin (Bld) [Mass/Vol] 16.3 g/dL High 12.0 - 16.0 gm/dL [facility] MCH (RBC) [Entitic mass] 29.4 pg Normal 27.0 - 34.0 pg [facility] MCHC (RBC) [Mass/Vol] 32.9 g/dL Normal 31.4 - 36.0 gm/dL [facility] MCV (RBC) [Entitic vol] 89.4 fL Normal 80.0 - 100.0 fL [facility] Platelet mean volume (Bld) [Entitic vol] 8.6 fL Normal 6.4 - 10.8 fL [facility] Platelets (Bld) [#/Vol] 257.0 E9/L Normal 150.0 - 500.0 E9/L [facility] RBC (Bld) [#/Vol] 5.6 E12/L Normal 4.3 - 5.9 E12/L [facility] WBC corrected for nucl RBC Auto (Bld) [#/Vol] 6.9 E9/L Normal 4.0 - 11.0 E9/L [facility] CHEMISTRYOrdered By: SYSTEM SYSTEM on 05-22-2022 Anion gap [Moles/Vol] 12 mmol/L Normal 6 - 16 mEq/L [facility] Calcium [Mass/Vol] 9.5 mg/dL Normal 8.9 - 11. 1 mg/dL [facility] Chloride [Moles/Vol] 107 mmol/L Normal 101 - 1 11 mmol/L [facility] CO2 [Moles/Vol] 24 mmol/L Normal 21 - 31 mmol/L [facility] Creatinine [Mass/Vol] 1.3 mg/dL Normal 0.5 - 1.3 mg/dL [facility] GFR/1.73 sq M.predicted among blacks MDRD (S/P/Bld) [Vol rate/Area] 48 mL/min/1.73 m2 Low >=59mL/min /1.73 m2 [facility] Chem S GFR/1.73 sq M.predicted among non-blacks MDRD (S/P/Bld) [Vol rate/Area] 40 mL/min/1.73 m2 Low >=59mL/min /1.73 m2 [facility] S Glucose [Mass/Vol] 66 mg/dL Normal 55 - 199 mg/dL [facility] Potassium [Moles/Vol] 4.7 mmol/L Normal 3.5 - 5.3 mmol/L [facility] Sodium [Moles/Vol] 138 mmol/L Normal 135 - 145 mmol/L [facility] Urea nitrogen [Mass/Vol] 32 mg/dL High 5 - 21 mg/dL [facility] Urea nitrogen/Creatinine [Mass ratio] 25 mg/mg High 10 - 20 [facility] CHEMISTRYOrdered By: SYSTEM SYSTEM on 05-18-2022 Albumin [Mass/Vol] 3.9 g/dL Normal 3.3 - 5.0 gm/dL [facility] Albumin/Globulin [Mass ratio] 1.3 {ratio} Normal 1.1 - 2.2 [facility] ALP [Catalytic activity/Vol] 92 [iU]/d Normal 21 - 98 Int._Unit/ L [facility] ALT No additional P-5'-P [Catalytic activity/Vol] 13 [iU]/d Normal 6 - 46 Int._Unit/ L [facility] Anion gap [Moles/Vol] 8 mmol/L Normal 6 - 16 mEq/L [facility] AST [Catalytic activity/Vol] 21 [iU]/d Normal 5 - 43 Int._Unit/ L [facility] Bilirubin [Mass/Vol] 1.0 mg/dL Normal 0.0 - 1 .1 mg/dL [facility] Calcium [Mass/Vol] 9.7 mg/dL Normal 8.9 - 11. 1 mg/dL [facility] Chloride [Moles/Vol] 113 mmol/L High 101 - 1 11 mmol/L [facility] Cholesterol [Mass/Vol] 158 mg/dL Normal 120 - 200 mg/dL [facility] Cholesterol in HDL [Mass/Vol] 72 mg/dL Invalid Interpretation Code [facility] Cholesterol in LDL [Mass/Vol] 58 mg/dL Normal <=129mg/dL [facility] Cholesterol in VLDL [Mass/Vol] 13 mg/dL Normal 7 - 40 mg/dL [facility] CO2 [Moles/Vol] 26 mmol/L Normal 21 - 31 mmol/L [facility] Creatinine [Mass/Vol] 1.6 mg/dL High 0.5 - 1.3 mg/dL [facility] GFR/1.73 sq M.predicted among blacks MDRD (S/P/Bld) [Vol rate/Area] 38 mL/min/1.73 m2 Low >=59mL/min /1.73 m2 [facility] [place] S GFR/1.73 sq M.predicted among non-blacks MDRD (S/P/Bld) [Vol rate/Area] 31 mL/min/1.73 m2 Low >=59mL/min /1.73 m2 [facility] [place] Chem S Globulin (S) [Mass/Vol] 3.0 g/dL Normal 1.4 - 4.0 gm/dL [facility] Glucose [Mass/Vol] 84 mg/dL Normal 55 - 199 mg/dL [facility] Potassium [Moles/Vol] 4.9 mmol/L Normal 3.5 - 5.3 mmol/L [facility] Protein [Mass/Vol] 6.9 g/dL Normal 6.0 - 7.8 gm/dL [facility] Sodium [Moles/Vol] 142 mmol/L Normal 135 - 145 mmol/L [facility] Triglyceride [Mass/Vol] 66 mg/dL Normal <=149mg/dL [facility] Urea nitrogen [Mass/Vol] 25 mg/dL High 5 - 21 mg/dL [facility] Urea nitrogen/Creatinine [Mass ratio] 16 mg/mg Normal 10 - 20 [facility] Discharge Summaryon 02-22-20 18 Discharge Summary Send Summary:Dischar ge Summary Providers:Provider Role Provider Name? Referring Coverdale, Venu J? Attending Taylor Mahan? Consulting Hubert Hurd? Primary Sachin, Melodie Christensen? Primary Unknown, PcpNote Recipients: Unknown, Pcp, MDDischarge:Summary:Admissi on Date: .06-Jan-2018 09:34:00Discharge Date: [id number] Physician at Discharge: Alonso Mahandmission Reason: CVAFinal Discharge Diagnoses: StrokeProcedures: NoneCondition at Discharge: SatisfactoryDisposition at Discharge: Senior Living FacilityVital Signs:See chartPhysical Exam:See ChartHospital Course:patient is a 72-year-old female who came to the ency room due todifficulty walking and having difficulty talkig. According to the patien sheis having difficulty with her balance for the pas2 days she denies ss orspinninshe also has been havingdifficulty with talking which she feels that she has tothink before we anything which is unusual for herAt baseline patient is alert and appropriate and is usually taking care of herhusbandNeurology was consulted and work up is notable for recent bilateral cerebellarpatchy strokes. Started on aspirin and plavixShe was seen by PTOT and did well sent to acute rehabDischarge Information:and Continuing Care:Discharge Instructions:Activity: activity with assistance. May not drive.Nutrition/Diet: resume normal dietLabs: Lab Test(s): Basic Metabolic Panel, CBC Comments: Recommend CBC/BMP 2-3x/week or as clinically indicated butDefer to Facility MD/NPAdditional Orders: Vital Signs: Recommend BID but Defer to Facility MD/MANAGER CAREER Additional Instructions: Please follow up with cerebrovascularneurology (such as Jose Maria Kaiser, Jarrell) for post stroke follow upin 4-6 weeksChrist [id number] [place], [place] [address]Eihatt: or or - Call to schedulePlease follow up with neuro surgery for aneurysm recommendations--Referral has been made to biology research assistant service awaiting outpatient referralRehab Services: Occupational Therapy Orders: [facility] Physical Therapy Orders: Eval and Treat ([facility])Infectious Disease: PPD Status: not given MRSA: no VRE: no C. Diff: no Other Resistant Organism: no Isolation Type: noneCare Recommendation: I recommend that INPATIENT care is required at:: Acute rehab Estimated Stay: Convalescent stay < 30 daysFollow Up Appointments:Follow-Up Appointment 01: Physician/Dept/Service: Your PCP Reason for Referral: hospital follow up ,general health maintenanceand medication refills Call to Schedule in: 1 weekFollow-Up Appointment 02: Physician/Dept/Service: As aboveDischarge Medications: Home Medication lisinopril 10 mg oral tablet - 1 tab(s) orally once a day atorvastatin 80 mg oral tablet - 1 tab(s) orally once a day clopidogrel 75 mg oral tablet - 1 tab(s) orally once a day Continue ASA + Plavix combined therapy Recommend to stop Plavix after 90 days & continue aspirin therapy thereafteras monotherapy senna 8.6 mg oral tablet - 2 tab(s) orally once a day docusate sodium 100 mg oral capsule - 1 cap(s) orally 2 times a day aspirin 81 mg oral tablet, chewable - 1 tab(s) orally once a day Continue ASA + Plavix combined therapy Recommend to stop Plavix after 90 days & continue aspirin therapy thereafteras monotherapy PRN MedicationLab Results - Pending: NoneRadiology Results - Pending: NoneSignature/Cosignature/A ttestation:Attending Only - Shared Visit with Advanced Practice Provider This is asharedvisit. I have reviewed the Advanced Practice Provider?s encounter note,approve the Advanced Practice Provider?s documentation, and provide thefollowing additional information from my personal encounter.Comments/ Additional Findingsagree with Ike Mahan MDElectronic Signatures:Suraj Jensen (ROLL EDGE STITCHER HAND-PULP MILL OPERATOR) (Signed 21-Feb-2018 08:10) Authored: Send Summary, Summary Content, Ongoing Care,Signature/Cosignature/ AttestationTaylor Mahan) (Signed 26-Feb-2018 06:54) Authored: Ongoing Care, Signature/Cosignature/Attes tation Co-Signer: Send Summary, Summary Content, Ongoing Care,Signature/Cosignature/ AttestationLast Updated: 26-Feb-2018 06:54 by Taylor Mahan) Normal [facility] Basic Metabolic Panelon 12-26 Anion gap 14 mmol/L Normal 10-20 [facility] Comment on above: Performed By: #### 1 [id number] ####[facility] [address] [address] Bicarbonate (HCO3) 24 mmol/L Normal 21-32 [facility] Comment on above: Performed By: #### 1 [id number] ####[facility] [address] [address] BUN/Creatinine Ratio 14 mg/mg Normal 5-25 [facility] Comment on above: Performed By: #### 1 550389 ####[address] [address] Calcium 9.7 mg/dL Normal 8.6-10.3 [facility] Comment on above: Performed By: #### 1 085749 ####[address] [address] Chloride 107 mmol/L Normal 98-107 [facility] Comment on above: Performed By: #### 1 [id number] ####[address] [address] Creatinine 0.90 mg/dL Normal 0.50-1.05 [facility] Comment on above: Performed By: #### 1 790807 ####[address] [address] eGFR (MDRD) mL/min/{1.73_m2} Normal [facility] Comment on above: Result Comment: Inte rpretation for Chronic Kidney Disease:Stages 1&2 >60 Healthy or potential kidney damage.Mild decrease of GFR.Stage 3 30-59 Moderate decrease of GFR.Stage 4 15-29 Severe decrease of GFR.Stage 5 <15 Kidney failure or on dialysis. Performed By: #### 1 [id number] ####[address] [address] Glucose mass conc 90 mg/dL Normal 70-100 [facility] Comment on above: Performed By: #### 1 534957 ####[address] [address] Potassium molar conc 3.9 mmol/L Normal 3.5-5.1 [facility] Comment on above: Performed By: #### 1 068632 ####[address] [address] Sodium 141 mmol/L Normal 136-145 [facility] Comment on above: Performed By: #### 1 590339 ####[address] [address] Urea nitrogen 13 mg/dL Normal 6-23 [facility] Comment on above: Performed By: #### 1 286959 ####[address] [address] CBCon 01-21-2018 Erythrocyte distribution width Auto Ratio (RBC) 14.1 % Normal 12.0-15.4 [facility] Comment on above: Performed By: #### 2 701501 ####[address] [address] Erythrocytes (RBC) 5.10 10*6/uL Normal 3.85-5.10 [facility] Comment on above: Performed By: #### 2 994094 ####[address] [address] Hematocrit (HCT) 46.9 % High 36.5-46.6 [facility] Comment on above: Performed By: #### 2 117672 ####[address] [address] Hemoglobin mass conc (Bld) 15.3 g/dL Normal 11.8-15.3 [facility] Comment on above: Performed By: #### 2 392020 ####[address] [address] MCH 30.0 pg Normal 27.5-33.0 [facility] Comment on above: Performed By: #### 2 635504 ####[address] [address] MCHC mass conc (RBC) 32.6 g/dL Normal 30.1-35.0 [facility] Comment on above: Performed By: #### 2 [id number] ####[address] [address] MCV 92.0 fL Normal 85.4-100.0 [facility] Comment on above: Performed By: #### 2 [id number] ####[place] [address] [address] Platelet mean volume (PMV) 10.6 fL Normal 9.9-12.1 [facility] Comment on above: Performed By: #### 2 624950 ####[place] [address] [address] Platelets 257 10*3/uL Normal 155-404 [facility] Comment on above: Performed By: #### 2 262533 ####[place] [address] [address] RDW SD 46.2 fL Normal 39.3-48.6 [facility] Comment on above: Performed By: #### 2 722844 ####[address] [address] WBC (Leukocytes) 7.4 10*3/uL Normal 4.4-9.9 [facility] Comment on above: Performed By: #### 2 775186 ####[address] [address] Basic Metabolic Panelon 12-26 Anion gap 14 mmol/L Normal 10-20 [facility] Comment on above: Performed By: #### 1 223086 ####[address] [address] Bicarbonate (HCO3) 24 mmol/L Normal 21-32 [facility] Comment on above: Performed By: #### 1 618248 ####[address] [address] BUN/Creatinine Ratio 19 mg/mg Normal 5-25 [facility] Comment on above: Performed By: #### 1 986515 ####[address] [address] Calcium 9.8 mg/dL Normal 8.6-10.3 [facility] Comment on above: Performed By: #### 1 925692 ####[address] [address] Chloride 105 mmol/L Normal 98-107 [facility] Comment on above: Performed By: #### 1 496534 ####[address] [address] Creatinine 0.80 mg/dL Normal 0.50-1.05 [facility] Comment on above: Performed By: #### 1 292952 ####[address] [address] eGFR (MDRD) mL/min/{1.73_m2} Normal [facility] Comment on above: Result Comment: Inte rpretation for Chronic Kidney Disease:Stages 1&2 >60 Healthy or potential kidney damage.Mild decrease of GFR.Stage 3 30-59 Moderate decrease of GFR.Stage 4 15-29 Severe decrease of GFR.Stage 5 <15 Kidney failure or on dialysis. Performed By: #### 1 344081 ####[address] [address] Glucose mass conc 87 mg/dL Normal 70-100 [facility] Comment on above: Performed By: #### 1 829835 ####[address] [address] Potassium molar conc 3.6 mmol/L Normal 3.5-5.1 [facility] Comment on above: Performed By: #### 1 127172 ####[address] [address] Sodium 139 mmol/L Normal 136-145 [facility] Comment on above: Performed By: #### 1 918917 ####[address] [address] Urea nitrogen 15 mg/dL Normal 6-23 [facility] Comment on above: Performed By: #### 1 959459 ####[address] [address] CBCon 01-14-2018 Erythrocyte distribution width Auto Ratio (RBC) 14.1 % Normal 12.0-15.4 [facility] Comment on above: Performed By: #### 2 591717 ####[address] [address] Erythrocytes (RBC) 5.33 10*6/uL High 3.85-5.10 [facility] Comment on above: Performed By: #### 2 090637 ####[address] [address] Hematocrit (HCT) 48.9 % High 36.5-46.6 [facility] Comment on above: Performed By: #### 2 309782 ####[facility]oy [address] [address] Hemoglobin mass conc (Bld) 16.0 g/dL High 11.8-15.3 [facility] Comment on above: Performed By: #### 2 456143 ####[address] [address] MCH 30.0 pg Normal 27.5-33.0 [facility] Comment on above: Performed By: #### 2 722556 ####[place] [address] [address] MCHC mass conc (RBC) 32.7 g/dL Normal 30.1-35.0 [facility] Comment on above: Performed By: #### 2 375978 ####[address] [address] MCV 91.7 fL Normal 85.4-100.0 [facility] Comment on above: Performed By: #### 2 177171 ####[address] [address] Platelet mean volume (PMV) 10.7 fL Normal 9.9-12.1 [facility] Comment on above: Performed By: #### 2 191985 ####[address] [address] Platelets 241 10*3/uL Normal 155-404 [facility] Comment on above: Performed By: #### 2 237246 ####[address] [address] RDW SD 46.5 fL Normal 39.3-48.6 [facility] Comment on above: Performed By: #### 2 461136 ####[address] [address] WBC (Leukocytes) 7.7 10*3/uL Normal 4.4-9.9 [facility] Comment on above: Performed By: #### 2 600934 ####[address] [address] Basic Metabolic Panelon 12-25 Anion gap 14 mmol/L Normal 10-20 [facility] Comment on above: Performed By: #### 1 934678 ####[address] [address] Bicarbonate (HCO3) 24 mmol/L Normal 21-32 [facility] Comment on above: Performed By: #### [id number] ####[address] [address] BUN/Creatinine Ratio 13 mg/mg Normal 5-25 [facility] Comment on above: Performed By: #### [id number] ####[address] [address] Calcium 9.9 mg/dL Normal 8.6-10.3 [facility] Comment on above: Performed By: #### 335570 ####[address] [address] Chloride 106 mmol/L Normal 98-107 [facility] Comment on above: Performed By: #### 740189 ####[address] [address] Creatinine 1.00 mg/dL Normal 0.50-1.05 [facility] Comment on above: Performed By: #### 602929 ####[address] [address] eGFR (MDRD) 54 mL/min/{1.73_m2} Normal [facility] Comment on above: Result Comment: Inte rpretation for Chronic Kidney Disease:Stages 1&2 >60 Healthy or potential kidney damage.Mild decrease of GFR.Stage 3 30-59 Moderate decrease of GFR.Stage 4 15-29 Severe decrease of GFR.Stage 5 <15 Kidney failure or on dialysis. Performed By: #### 095438 ####[address] [address] Glucose mass conc 75 mg/dL Normal 70-100 [facility] Comment on above: Performed By: #### [id number] ####[address] [address] Potassium molar conc 3.5 mmol/L Normal 3.5-5.1 [facility] Comment on above: Performed By: #### [id number] ####[address] [address] Sodium 141 mmol/L Normal 136-145 [facility] Comment on above: Performed By: #### 152424 ####[address] [address] Urea nitrogen 13 mg/dL Normal 6-23 [facility] Comment on above: Performed By: #### 1 160903 ####[address] [address] CBCon 01-10-2018 Erythrocyte distribution width Auto Ratio (RBC) 14.3 % Normal 12.0-15.4 [facility] Comment on above: Performed By: #### 2 684422 ####[address] [address] Erythrocytes (RBC) 5.28 10*6/uL High 3.85-5.10 [facility] Comment on above: Performed By: #### 2 088667 ####[address] [address] Hematocrit (HCT) 49.3 % High 36.5-46.6 [facility] Comment on above: Performed By: #### 2 911508 ####[address] [address] Hemoglobin mass conc (Bld) 16.1 g/dL High 11.8-15.3 [facility] Comment on above: Performed By: #### 2 542540 ####[address] [address] MCH 30.5 pg Normal 27.5-33.0 [facility] Comment on above: Performed By: #### 2 684515 ####[address] [address] MCHC mass conc (RBC) 32.7 g/dL Normal 30.1-35.0 [facility] Comment on above: Performed By: #### 2 630648 ####[address] [address] MCV 93.4 fL Normal 85.4-100.0 [facility] Comment on above: Performed By: #### 2 453153 ####[address] [address] Platelet mean volume (PMV) 10.9 fL Normal 9.9-12.1 [facility] Comment on above: Performed By: #### 2 409345 ####[address] [address] Platelets 236 10*3/uL Normal 155-404 [facility] Comment on above: Performed By: #### 2 985007 ####[facility] [id number] [place] [address] RDW SD 47.0 fL Normal 39.3-48.6 [facility] Comment on above: Performed By: #### 2 994194 ####[facility] [place] [address] WBC (Leukocytes) 6.9 10*3/uL Normal 4.4-9.9 [facility] Comment on above: Performed By: #### 2 646291 ####[facility] [id number] [place] [address] BASIC METABOLIC PANELon 12-25 Anion gap 11 mmol/L Normal 10 - [address] [facility] Comment on above: Performed By: #### B MP ####[facility] [id number] [place] [address] Bicarbonate (HCO3) 26 mmol/L Normal 21 - 32 [facility] Comment on above: Performed By: #### B MP ####[facility] [id number] [place] [address] Calcium 10.0 mg/dL Normal 8.6 - 10.[address] [facility] Comment on above: Performed By: #### B MP ####[facility] [id number] [place] [id number] Chloride 107 mmol/L Normal 98 - [address] [facility] Comment on above: Performed By: #### B MP ####[facility] [id number] [place] [id number] Creatinine 0.92 mg/dL Normal 0.50 - 1.[address] [facility] Comment on above: Performed By: #### B MP ####[facility] [id number] [place] [id number] eGFR (non-black) 73 mL/min/{1.73_m2} Normal >[address] [facility] Comment on above: Result Comment: CALC ULATIONS OF ESTIMATED GFR ARE PERFORMED USING THE MDRD STUDY EQUATION FOR THE IDMS-TRACEABLE CREATININE METHODS. CLIN CHEM 2007;53:766-72 Performed By: #### B MP ####[facility] [id number] [place] [address] eGFR (non-black) 60 mL/min/{1.73_m2} Invalid Interpretation Code >[address] [facility] Comment on above: Performed By: #### B MP ####[id number] [place] [id number] Glucose mass conc 122 mg/dL High 74 - 99 [facility] Comment on above: Performed By: #### B MP ####[id number] [place] [id number] Potassium molar conc 4.1 mmol/L Normal 3.5 - 5.3 [facility] Comment on above: Performed By: #### B MP ####[id number] [place] [id number] Sodium 140 mmol/L Normal 136 - [address] [facility] Comment on above: Performed By: #### B MP ####[id number] [place] [id number] Urea nitrogen 12 mg/dL Normal 6 - [address] [facility] Comment on above: Performed By: #### B MP ####[id number] [place] [id number] CBCon 01-09-2018 Erythrocyte distribution width Auto Ratio (RBC) 13.4 % Normal 11.5 - 14.[address] [facility] Comment on above: Performed By: #### B MP ####[id number] [place] [id number] Erythrocytes (RBC) 5.55 x10E12/L High 4.00 - 5.[address] [facility] Comment on above: Performed By: #### B MP ####[id number] [place] [id number] Hematocrit (HCT) 50.8 % High 36.0 - 46.[address] [facility] Comment on above: Performed By: #### B MP ####[id number] [place] [id number] Hemoglobin mass conc (Bld) 16.9 g/dL High 12.0 - 16.[address] [facility] Comment on above: Performed By: #### B MP ####[facility] [id number] [place] [address] MCHC mass conc (RBC) 33.3 g/dL Normal 32.0 - 36.[address] [facility] Comment on above: Performed By: #### B MP ####[facility] [id number] [place] [address] MCV 92 fL Normal 80 - [address] [facility] Comment on above: Performed By: #### B MP ####[facility] [id number] [place] [address] Platelets 240 10*3/uL Normal 150 - [address] [facility] Comment on above: Performed By: #### B MP ####[facility] [id number] [place] [address] WBC (Leukocytes) 7.9 10*3/uL Normal 4.4 - 11.3 [facility] Comment on above: Performed By: #### B MP ####[facility] [id number] [place] [address] Daily Progress Note-Medicine on 01-09-2018 Daily Progress Note-Medicine Service: MedicineSubjective Data:ALICIA BARRIENTOS is a 72 year old Female who is Hospital Day # 4.PT in bed without issuesNo new deficitsshe Denies chest pain / pressure / palpitations / lightheadedness / dizziness /syncope / BORRERO or SOB / cough / nausea / vomiting / diarrhea / fever / chills /weakness / weight changesEcho still pending.Overnight Events: Patient had an uneventful night.Objective Data:Objective Information: T P R BP PcV5Vyeam 36.5 50 18 149/73 91%Date/Time 01/09 7:29 01/09 7:29 01/09 7:29 01/09 7:29 01/09 7:29Range (36.4C - 36.8C ) (50 - 67 ) (18 - 19 ) (131 - 153 )/(55 - 95 ) (91%- 95% )Pain at Rest reported at 01/09 4:25: 0 T P R BP PmB3Sznfb 36.5 50 18 149/73 91%Date/Time 01/09 7:29 01/09 7:29 01/09 7:29 01/09 7:29 01/09 7:29Range (36.4C - 36.8C ) (50 - 67 ) (18 - 19 ) (131 - 153 )/(55 - 95 ) (91%- 95% )Physical Exam:Constitutional: Well developed, awake/alert/oriented x3, no distress, alert andcooperativeEyes: PERRL, EOMI, clear scleraENMT: mucous membranes moist, no apparent injury, no lesions seenHead/Neck: Neck supple, no apparent injury, thyroid without mass or tenderness,No JVD, trachea midline, no bruitsRespiratory/Thorax: Patent airways, CTAB, normal breath sounds with good chestexpansion, thorax symmetricCardiovascular: Regular, rate and rhythm, no murmurs, 2+ equal pulses of theextremities, normal S 1and S 2Gastrointestinal: Nondistended, soft, non-tender, no rebound tenderness orguarding, no masses palpable, no organomegaly, +BS, no bruitsMusculoskeletal: ROM intact, no joint swelling, normal strengthExtremities: normal extremities, no cyanosis edema, contusions or wounds, noclubbingNeurological: alert oriented x3 finger nose slow but intact heel murphy ok gait not teted motor nonfocalsppech dysarthria mildLymphatic: No significant lymphadenopathyPsychologica l: Appropriate mood and behaviorSkin: Warm and dry, no lesions, no rashesMedication:Medication s:CARDIOVASCULAR AGENTS:1. Lisinopril: 10 mg Oral DailyCENTRAL NERVOUS SYSTEM AGENTS:1. Acetaminophen: 650 mg Oral Every 6 Hours PRN2. Aspirin Chewable: 81 mg Oral DailyCOAGULATION MODIFIERS:1. Enoxaparin SubCutaneous: 40 mg SubCutaneous Every 24 Hours2. Clopidogrel: 75 mg Oral DailyGASTROINTESTINAL AGENTS:1. Docusate: 100 mg Oral 2 Times a Day2. Sennosides: 2 tablet(s) Oral DailyMETABOLIC AGENTS:1. Atorvastatin: 80 mg Oral DailyNUTRITIONAL PRODUCTS:1. Sodium Chloride 0.9% Infusion: 1000 mL IntraVenous Recent Lab Results:Results:I have reviewed these laboratory results:Troponin I, Serum Trending ViewResult 09-Jan-2018 06:22:00 08-Jan-2018 05:56:00Troponin I, Serum <0.02 0.02Complete Blood Count 08-Jan-2018 05:56:00Result ValueWhite Blood Cell Count 7.0Red Blood Cell Count 5.57 HHGB 16.8 HHCT 49.1 HMCV 88MCHC 34.2PLT 232RDW-CV 13.2Basic Metabolic Panel 08-Jan-2018 05:56:00Result ValueGlucose, Serum 89NA 141K 4.0CL 108 HBicarbonate, Serum 24Anion Gap, Serum 13BUN 10CREAT 0.88GFR-Non >60GFR- >60Calcium, Serum 9.9Brain Natriuretic Peptide 08-Jan-2018 05:56:00Result ValueBrain Natriuretic Peptide 159 HRadiology Results:Results:Impression: 25-35% stenosis involving the proximal left internal carotid arteryOcclusion of the right vertebral artery MRA Neck without Contrast [Jan 07 2018 5:33PM]Impression:1.There are multiple acute or subacute infarcts in the bilateralcerebellum. There is no acute intracranial hemorrhage. There is nomass effect.2. There are findings of probable chronic small vessel ischemicchanges.3. There is minimal to no flow related enhancement in the rightintradural vertebral artery. The left intradural vertebral artery isdiffusely small size. There is segmental marked narrowing of the midand distal portions of the basilar artery due to atheroscleroticdisease. There is origin of the bilateral posterior cerebralarteries, normal variant. There is no stenosis of the anteriorcirculation.4. There is a 2 mm inferiorly orientated focal outpouching arisingfrom the paraophthalmic segment of the left ICA which is mostconsistent with an aneurysm. 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 There is no acute intracranial hemorrhage. There is nomass effect.2. There are findings of probable chronic small vessel ischemicchanges.3. There is minimal to no flow related enhancement in the rightintradural vertebral artery. The left intradural vertebral artery isdiffusely small size. There is segmental marked narrowing of the midand distal portions of the basilar artery due to atheroscleroticdisease. There is origin of the bilateral posterior cerebralarteries, normal variant. There is no stenosis of the anteriorcirculation.4. There is a 2 mm inferiorly orientated focal outpouching arisingfrom the paraophthalmic segment of the left ICA which is mostconsistent with an aneurysm. MRI Brain w/wo Contrast [Jan 06 2018 3:53PM]Impression:MRI Brain w/wo Contrast [Jan 06 2018 2:50PM]Impression:MRI Brain w/wo Contrast [Jan 06 2018 1:59PM]Impression:No focal infiltrate or pneumothorax is identified. Xray Chest 1 View [Jan 06 2018 10:54AM]Impression:No evidence of acute cortical ischemia or intracranial hemorrhage.Chronic changes of volume loss and small vessel ischemic disease.No evidence of intracranial hemorrhage or displaced skull fracture. CT Head without Contrast [Jan 06 2018 10:47AM]Assessment and Plan:Assessment:72 year old female HPI & PMHx as per H&P Labs, vitals, and consulting notesreviewed and appreciated. Pt discussed with Dr. Mahan, seen and examined. Alllabs, VS and previous plan of care reviewed.A/P - As Ophelia Jensen MSN, ROLL EDGE STITCHER HAND-PULP MILL OPERATOR-In collaboration with Dr. William McnealAtlantiCare Regional [facility]Office: [phone]: [phone]: [phone] [facility] [address] [place], [place] [address]Impression 1: cvaPlan for Impression 1: -jeanne cerebellar patchy strokes -Neurology following input noted and appreciated -C/w stroke protocol -C/w PTOT -C/w ASA and plavix (stop plavix after 90 days) - aneurysm recommendations from neurosurgery as out patient -Echo ordered 01/06 & STILL pending for reasons unclear REordered for discharge priorityImpression 2: htnPlan for Impression 2: -stable-resumed regimen, see ordersImpression 3: hyperlipidemiaPlan for Impression 3: cont with statin for nowImpression 4: cadPlan for Impression 4: Will order monitor for dischargeImpression 5: VTE PPxPlan for Impression 5: -See ordersImpression 6: Discharge PlanningPlan for Impression 6: -Pending labs and echoSignature/Cosignature/A ttestation:Attending Only - Shared Visit with Advanced Practice Provider This is asharedvisit. I have reviewed the Advanced Practice Provider?s encounter note,approve the Advanced Practice Provider?s documentation, and provide thefollowing additional information from my personal encounter.Comments/ Additional Findingspt seen with MANAGER CAREER earlier todayno distresschest clearcvs heart sounds regularext no edemaabdo soft nontende r bs active, no massescns alert oriented q2evnmbs dysarthria presentlabs revieweda/p cont with asa, plavix, statinresumed ramiprilecho notedwill dc to acute rehabVijay Kalli, MDdischarge planning > 35 minElectronic Signatures:Suraj Jensen (ROLL EDGE STITCHER HAND-PULP MILL OPERATOR) (Signed 09-Jan-2018 10:06) Authored: Service, Subjective Data, Objective Data, Assessment and Plan,Signature/Cosignature/ AttestationTaylor Mahan) (Signed 09-Jan-2018 23:58) Authored: Signature/Cosignature/Attes tation Co-Signer: Service, Subjective Data, Objective Data, Assessment and Plan,Signature/Cosignature/ AttestationLast Updated: 09-Jan-2018 23:58 by Taylor Mahan) Normal [facility] Discharge [id number] 16- 018 Discharge Profile2 Discharge Orders:Anticipated Discharge Date:? Anticipated Discharge Date 09-[id number]:activit y with assistance.May not drive.Diet:? Diet resume normal dietLabs 1:? Lab Test(s) Basic Metabolic Panel, CBC? Comments Recommend CBC/BMP 2-3x/week or as clinically indicated but DefertoFacility MD/NPAdditional Orders:? Vital Signs Recommend BID but Defer to Facility MD/MANAGER CAREER? Additional InstructionsPlease follow up with cerebrovascular neurology (such as Jose Maria Kaiser,Jarrell) for post stroke follow up in 4-6 weeksChrist HospitalDepartment [facility] [id number] Immanuel [place], [place] [address]Eswocu: or or - Call to schedulePlease follow up with neuro surgery for aneurysm recommendations--Referral has been made to biology research assistant service awaiting outpatient referralCall Provider If (Homegoing Patients):Fever of 100.4 F (38 C) or higher.Chills.Vomiting (throwing up) and not able to eat or drink for 12 hours.3 or more loose, watery bowel movements in 24 hours (diarrhea).Any new concerning symptoms.Please see your primary care physician for follow up. If symptoms worsen,please call 911 and return to ER immediately.Hospital Course (Home Care/Gold Form):Hospital Course:? Hospital Course: include significant abnormal lab valuespatient is a 72-year-old female who came to the ency room due todifficulty walking and having difficulty talkig. According to the patien shahrzadis having difficulty with her balance for the pas2 days she denies ss orspinninshe also has been havingdifficulty with talking which she feels that she has tothink before we anything which is unusual for herAt baseline patient is alert and appropriate and is usually taking care of herhusbandNeurology was consulted and work up is notable for recent bilateral cerebellarpatchy strokes. Started on aspirin and plavixShe was seen by PTOT and did well sent to acute rehabInfectious Disease:? PPD Status not given? MRSA no? VRE no? C. Diff no? Other Resistant Organism no? Isolation Type noneGold Form Orders:Care Recommendation:? I recommend that INPATIENT care is required at: Acute rehab? Estimated Stay Convalescent stay < 30 days? Prognosis Good? Rehab Potential/Function Improve? Provider Certification I certify that inpatient care is required at thelevelrecommended above. To the best of my knowledge, all information provided aboutthe individual is a true and accurate reflection of the individual's condition.Therapy Orders:? Occupational Therapy Orders Eval and Treat ([facility])? Physical Therapy Orders Eval and Treat ([facility])Provider Follow Up:? Physician To Follow at Skilled/Rehab Attending Physician at Skilled/RehabProvider FINAL REVIEW of Orders:Final Review:? Final Review of Medication Reconciliation and Orders Completed by Physician? Reviewing Provider Taylor Mahan MD at 09-Jan-2018 17:51:05Appointments:Follow -Up Appointment 01:? Physician/Dept/Service Your PCP? Reason for Referral hospital follow up ,general health maintenance andmedication refills? Call to Schedule in 1 weekFollow-Up Appointment 02:? Physician/Dept/Service As aboveGold Form - Char Dust Cleaner And Salvager Summary:Community Support:? Support System Dtr - JoyceReferral Information:? Referral To Rehab? Referring Facility [facility]? Contact Name YISEL Nelson? Contact Insurance 1:? Insurance See Face SheetSocial Security:? Social Security Number See Face SheetMental & Functional Status:? Mental/Behavioral Status alert, calm, oriented? Oriented to person, time and place? Functional Status Prior To Admission Pt was living with spouse. She wasindependent prior to admisison? Capacity For Independent Living/Health And Human Performance Professor Plan Rehab and return homeElectronic Signatures:Silvina Meng (TRAFFIC SIGN ERECTION SUPERVISOR-S) (Signed 09-Jan-2018 16:20) Authored: Gold Form - Char Dust Cleaner And Salvager Suraj Pavon (ROLL EDGE STITCHER HAND-PULP MILL OPERATOR) (Signed 09-Jan-2018 10:18) Authored: Discharge Orders, Hospital Course (Home Care/Gold Form), Gold FormOrders, Provider FINAL REVIEW of Orders, Appointments, Gold Form - SocialServices SummaryTaylor Mahan) (Signed 09-Jan-2018 17:51) Authored: Provider FINAL REVIEW of OrdersLast Updated: 09-Jan-2018 17:51 by Taylor Mahan) Normal [facility] Echocardiogramon 01-09-2018 Echocardiogram [facility] , [address] [place] [address] and [id number] ECHOCARDIOGRAM REPORT Patient Name: ALICIA Mcknight Physician: [id number] Abdi Vyas MDStudy Date: 01/09/2018 Referring Taylor Mahan MD Physician:MRN/PID: [id number] PCP: unknownAccession/Order#: [id number] Department [facility] Non Invasive Location:Date of : 1945 Fellow:Gender: F Nurse: Latonya Martin Date: 01/06/2018 Conference Planner: Hubert Crable RDCSAdmission Status: Inpatient - Additional Staff: RoutineHeight: 147.00 cm CC Report to: [address] [place], [place] [address]jaWeight: 65.70 kg Study Type: EchocardiogramBSA: 1.59 a0Bfppi Pressure: 140 /81 mmHgDiagnosis/ICD: I67.89 Other cerebrovascular diseaseIndication: StrokeProcedure/CPT: Echo Complete w/Full Doppler (93140)Patient History:Pertinent History: TIA.Study Detail: The following Echo studies were performed: 2D, M-Mode, Doppler and color flow. Poor endocardial definition precludes accurate assessment of left ventricular function and Image quality for this study is poor. Technically challenging study due to poor acoustic windows and body habitus. A bubble study was not performed. PHYSICIAN INTERPRETATION:Left Ventricle: The left ventricular systolic function is normal, with an estimated ejection fraction of 60%. The left ventricular cavity size is normal. There is mild left ventricular hypertrophy. Spectral Doppler shows an impaired relaxation pattern of left ventricular diastolic filling.Left Atrium: The left atrium is moderately dilated.Right Ventricle: The right ventricle is upper limits of normal in size. There is normal right ventricular global systolic function.Right Atrium: The right atrium is upper limits of normal in size.Aortic Valve: The aortic valve is probably trileaflet. There is trivial aortic valve regurgitation. The peak instantaneous gradient of the aortic valve is 7.6 mmHg.Mitral Valve: The mitral valve is normal in structure. There is no evidence of mitral valve regurgitation.Tricuspid Valve: The tricuspid valve was not well visualized. No evidence of tricuspid regurgitation.Pulmonic Valve: The pulmonic valve is not well visualized. The pulmonic valve regurgitation was not well visualized.Pericardium: There is a trivial pericardial effusion.Aorta: The aortic root was not well visualized. CONCLUSIONS: 1. The left ventricular systolic function is normal with a 60% estimated ejection fraction. 2. Poorly visualized anatomical structures due to suboptimal image quality. 3. Spectral Doppler shows an impaired relaxation pattern of left ventricular diastolic filling. 4. The left atrium is moderately dilated.QUANTITATIVE DATA SUMMARY:2D MEASUREMENTS: Normal Ranges:IVSd: 1.50 cm (0.6-1.1cm)LVPWd: 1.10 cm (0.6-1.1cm)LVIDd: 4.00 cm (3.9-5.9cm)LVIDs: 2.30 cmLV Mass Index: 117.7 g/m2LV % FS 42.5 %LA VOLUME: Normal Ranges:LA Vol A4C: 88.9 ml (22+/-6mL/m2)LA Vol A2C: 68.6 mlLA Vol BP: 80.9 mlLA Vol Index A4C: 56.1 ml/m2LA Vol Index A2C: 43.2 ml/m2LA Vol Index BP: 51.0 ml/m2LA Area A4C: 24.4 cm2LA Area A2C: 22.2 cm2LA [place] A4C: 5.7 cmLA [place] A2C: 6.1 cmLA Volume Index: 50.9 ml/l6I-RSZI MEASUREMENTS: Normal Ranges:Ao Root: 2.70 cm (2.0-3.7cm)AORTA MEASUREMENTS: Normal Ranges:Asc Ao, d: 2.80 cm (2.1-3.4cm)LV SYSTOLIC FUNCTION BY 2D PLANIMETRY (MOD): Normal Ranges:EF-A4C View: 71.4 % (>55%)EF-A2C View: 63.3 %EF-Biplane: 67.2 %LV DIASTOLIC FUNCTION: Normal Ranges:MV Peak E: 0.38 m/s (0.7-1.2 m/s)MV Peak A: 0.87 m/s (0.42-0.7 m/s)E/A Ratio: 0.44 (1.0-2.2)MV lateral e' 0.08 m/sMV medial e' 0.04 m/sMV A Dur: 120.00 msecE/e' Ratio: 5.10 (<8.0)PulmV Sys Neymar: 38.50 cm/sPulmV Romero Neymar: 26.70 cm/sPulmV S/D Neymar: 1.40PulmV A Revs Neymar: 30.80 cm/sPulmV A Revs Dur: 130.00 msecMITRAL VALVE: Normal Ranges:MV Vmax: 0.90 m/s (<1.3m/s)MV peak P.2 mmHg (<5mmHg)MV mean P.0 mmHg (<48mmHg)MV DT: 303 msec (150-240msec)AORTIC VALVE: Normal Ranges:AoV Vmax: 1.38 m/s (<1.7m/s)AoV Peak P.6 mmHg (<20mmHg)LVOT Max Neymar: 1.11 m/s (<1.1m/s)LVOT VTI: 19.80 cmLVOT Diameter: 1.80 cm (1.8-2.4cm)AoV Area,Vmax: 2.05 cm2 (2.5-4.5cm2)RIGHT VENTRICLE:RV 1 2.84 cmRV 2 2.83 cmRV 3 5.22 cmTAPSE: 20.2 mmRV s' 0.11 m/sPULMONIC VALVE: Normal Ranges:PV Max Neymar: 0.5 m/s (0.6-0.9m/s)PV Max P.1 mmHgPulmonary Veins:PulmV A Revs Dur: 130.00 msecPulmV A Revs Neymar: 30.80 cm/sPulmV Romero Neymar: 26.70 cm/sPulmV S/D Neymar: 1.40PulmV Sys Neymar: 38.50 cm/s [id number] Abdi Vyas MDElectronically signed on 01/09/2018 at 2:39:03 PM Final Normal [facility] TROPONIN Ion 01-09-2018 Troponin I.cardiac mass conc ng/mL Normal 0.00 - 0.[address] [facility] Comment on above: Result Comment: LESS THAN 0.04 NG/ML: NEGATIVEREPEAT TESTING IN FOUR TO SIX HOURSIF CLINICALLY INDICATED.0.04 - 0.5 NG/ML: CONSISTENT WITH POSSIBLECARDIAC DAMAGE AND POSSIBLE INCREASEDCLINICAL RISK.SERIAL MEASUREMENTS MAY HELP ASSESS EXTENT OFMYOCARDIAL DAMAGE.>0.5 NG/ML: CONSISTENT WITH CARDIAC DAMAGE,INCREASED CLINICAL RISK AND MYOCARDIALINFARCTION. SERIAL MEASUREMENTS MAY HELPASSESS EXTENT OF MYOCARDIAL DAMAGE..Note: Troponin I testing is performed using [facility] Direct result comparisons should onlybe made within the same method. Performed By: #### P TINR ####[facility] [id number] [place] [address] BASIC METABOLIC PANELon 12-25 Anion gap 13 mmol/L Normal 10 - [address] [facility] Comment on above: Performed By: #### P TINR ####[facility] [id number] [place] [address] Bicarbonate (HCO3) 24 mmol/L Normal 21 - 32 [facility] Comment on above: Performed By: #### P TINR ####[facility] [id number] [place] [address] Calcium 9.9 mg/dL Normal 8.6 - 10.[address] [facility] Comment on above: Performed By: #### P TINR ####[id number] [place] [id number] Chloride 108 mmol/L High 98 - [address] [facility] Comment on above: Performed By: #### P TINR ####[id number] [place] [id number] Creatinine 0.88 mg/dL Normal 0.50 - 1.[address] [facility] Comment on above: Performed By: #### P TINR ####[id number] [place] [id number] eGFR (non-black) mL/min/{1.73_m2} Normal >[address] [facility] Comment on above: Result Comment: CALC ULATIONS OF ESTIMATED GFR ARE PERFORMED USING THE MDRD STUDY EQUATION FOR THE IDMS-TRACEABLE CREATININE METHODS. CLIN CHEM 2007;53:766-72 Performed By: #### P TINR ####[facility] [id number] [place] [address] Glucose mass conc 89 mg/dL Normal 74 - 99 [facility] Comment on above: Performed By: #### P TINR ####[facility] [id number] [place] [id number] Potassium molar conc 4.0 mmol/L Normal 3.5 - 5.3 [facility] Comment on above: Performed By: #### P TINR ####[facility] [id number] [place] [address] Sodium 141 mmol/L Normal 136 - [address] [facility] Comment on above: Performed By: #### P TINR ####[id number] [place] [id number] Urea nitrogen 10 mg/dL Normal 6 - [address] [facility] Comment on above: Performed By: #### P TINR ####[facility] [id number] [place] [id number] BNPon 01-08-2018 BNP 159 pg/mL High 0 - [address] [facility] Comment on above: Result Comment: . <1 00 pg/mL - Heart failure [id number] pg/mL - Intermediate probability of acute heart. failure exacerbation. Correlate with clinical. context and patient history. >=300 pg/mL - Heart Failure likely. Correlate with clinical. context and patient history.BNP testing is performed using different testingmethodology [facility]. Direct result comparisons shouldonly be made within the same method. Performed By: #### P TINR ####[facility] [id number] [place] [id number] CBCon 01-08-2018 Erythrocyte distribution width Auto Ratio (RBC) 13.2 % Normal 11.5 - 14.[address] [facility] Comment on above: Performed By: #### P TINR ####[facility] [id number] [place] [id number] Erythrocytes (RBC) 5.57 x10E12/L High 4.00 - 5.[address] [facility] Comment on above: Performed By: #### P TINR ####[facility] [id number] [place] [id number] Hematocrit (HCT) 49.1 % High 36.0 - 46.[address] [facility] Comment on above: Performed By: #### P TINR ####[facility] [id number] [place] [id number] Hemoglobin mass conc (Bld) 16.8 g/dL High 12.0 - 16.[address] [facility] Comment on above: Performed By: #### P TINR ####[facility] [id number] [place] [id number] MCHC mass conc (RBC) 34.2 g/dL Normal 32.0 - 36.[address] [facility] Comment on above: Performed By: #### P TINR ####[facility] [id number] [place] [address] MCV 88 fL Normal 80 - [address] [facility] Comment on above: Performed By: #### P TINR ####[facility] [facility] [id number] [place] [address] Platelets 232 10*3/uL Normal 150 - [address] [facility] Comment on above: Performed By: #### P TINR ####[facility] [id number] [place] [address] WBC (Leukocytes) 7.0 10*3/uL Normal 4.4 - 11.3 [facility] Comment on above: Performed By: #### P TINR ####[facility] [id number] [place] [address] Daily Progress Note-Medicine on 01-08-2018 Daily Progress Note-Medicine Service: MedicineSubjective Data:ALICIA BARRIENTOS is a 72 year old Female who is Hospital Day # 3.Pt in bed with no new complaints. Still some trouble with word finding andweaknesswalking with alker.Overnight Events: Patient had an uneventful night.Objective Data:Objective Information: T P R BP UtD0Gwtbi 36.6 49 18 152/57 93%Date/Time 01/08 4:45 01/08 4:45 01/08 4:45 01/08 4:45 01/08 4:45Range (36.4C - 36.6C ) (48 - 57 ) (14 - 18 ) (141 - 174 )/(57 - 84 ) (93%- 98% ) T P R BP TsH4Ztroa 36.6 49 18 152/57 93%Date/Time 01/08 4:45 01/08 4:45 01/08 4:45 01/08 4:45 01/08 4:45Range (36.4C - 36.6C ) (48 - 57 ) (14 - 18 ) (141 - 174 )/(57 - 84 ) (93%- 98% )Physical Exam:Constitutional: Well developed, awake/alert/oriented x3, no distress, alert andcooperativeEyes: PERRL, EOMI, clear scleraENMT: mucous membranes moist, no apparent injury, no lesions seenHead/Neck: Neck supple, no apparent injury, thyroid without mass or tenderness,No JVD, trachea midline, no bruitsRespiratory/Thorax: Patent airways, CTAB, normal breath sounds with good chestexpansion, thorax symmetricCardiovascular: Regular, rate and rhythm, no murmurs, 2+ equal pulses of theextremities, normal S 1and S 2Gastrointestinal: Nondistended, soft, non-tender, no rebound tenderness orguarding, no masses palpable, no organomegaly, +BS, no bruitsMusculoskeletal: ROM intact, no joint swelling, normal strengthExtremities: normal extremities, no cyanosis edema, contusions or wounds, noclubbingNeurological: alert oriented x3 finger nose slow but intact heel murphy ok gait not teted motor nonfocalsppech dysarthria mildLymphatic: No significant lymphadenopathyPsychologica l: Appropriate mood and behaviorSkin: Warm and dry, no lesions, no rashesMedication:Medication s:CENTRAL NERVOUS SYSTEM AGENTS:1. Acetaminophen: 650 mg Oral Every 6 Hours PRN2. Aspirin Chewable: 81 mg Oral DailyCOAGULATION MODIFIERS:1. Enoxaparin SubCutaneous: 40 mg SubCutaneous Every 24 Hours2. Clopidogrel: 75 mg Oral DailyGASTROINTESTINAL AGENTS:1. Docusate: 100 mg Oral 2 Times a Day2. Sennosides: 2 tablet(s) Oral DailyMETABOLIC AGENTS:1. Atorvastatin: 80 mg Oral DailyNUTRITIONAL PRODUCTS:1. Sodium Chloride 0.9% Infusion: 1000 mL IntraVenous RADIOLOGIC AGENTS:1. Gadobenate Dimeglumine (MultiHance-Radiology Contrast): 14.96 mLIntraVenous Push OnceRecent Lab Results:Results:I have reviewed these laboratory results:Complete Blood Count Trending ViewResult 08-Jan-2018 05:56:00 07-Jan-2018 07:15:00White Blood Cell Count 7.0 7.2Red Blood Cell Count 5.57 H 5.45 HHGB 16.8 H 16.6 HHCT 49.1 H 50.4 HMCV 88 92MCHC 34.2 32.9PLT 232 238RDW-CV 13.2 13.5Basic Metabolic Panel Trending ViewResult 08-Jan-2018 05:56:00 07-Jan-2018 07:15:00Glucose, Serum 89 92NA 141 140K 4.0 4.0CL 108 H 107Bicarbonate, Serum 24 25Anion Gap, Serum 13 12BUN 10 10CREAT 0.88 0.88GFR-Non >60 >60GFR- >60 >60Calcium, Serum 9.9 9.9Brain Natriuretic Peptide 08-Jan-2018 05:56:00Result ValueBrain Natriuretic Peptide 159 HTroponin I, Serum 08-Jan-2018 05:56:00Result ValueTroponin I, Serum 0.02Lipid Panel 07-Jan-2018 07:15:00Result ValueCholesterol, Serum 196 . AGE DESIRABLE BORDERLINE HIGH HIGH 0-19 Y 0 - 169 170 - 199 >/= 200 20-24 Y 0 - 189 190 - 224 >/= 225 >24 Y 0 - 199 200 - 239 >/= 240 All ranges are based on fasting sampHDL Cholesterol, Serum 44.9 . AGE VERY LOW LOW NORMAL HIGH 0-19 Y < 35 < 40 40-45 ---- 20-24 Y ---- < 40 >45 ---- >24 Y ---- < 40 40-60 >60.Cholesterol/HDL Ratio 4.4 REF VALUESDESIRABLE < 3.4HIGH RISK > 5.0LDL, Level 127 . NEAR BORD AGE DESIRABLE OPTIMAL HIGH HIGH VERY HIGH 0-19 Y 0 - 109 --- 110-129 >/= 130 ---- 20-24 Y 0 - 119 --- 120-159 >/= 160 ---- >24 Y 0 - HVLDL, Serum 24Triglycerides, Serum 119 . AGE DESIRABLE BORDERLINE HIGH HIGH VERY HIGH 0 D-90 D 19 - 174 ---- ---- ----91 D- 9 Y 0 - 74 75 - 99 >/= 100 ---- 10-19 Y 0 - 89 90 - 129 >/= 130 ----Hemoglobin A1C, Level 07-Jan-2018 07:15:00Result ValueEstimated Average Glucose 88Hemoglobin A1C, Level 4.7 Diagnosis of Diabetes-Adults Non-Diabetic: < or = 5.6% Increased risk for developing diabetes: 5.7-6.4% Diagnostic of diabetes: > or = 6.5%. Monitoring of Diabetes Age (y) Therapeutic Goal (%) Adults: >1Radiology Results:Results:No Results have been selected. Please select Results from the AvailableResults list before marking as Reviewed.Impression:25-35% stenosis involving the proximal left internal carotid arteryOcclusion of the right vertebral artery MRA Neck without Contrast [Jan 07 2018 5:33PM]Impression:1.There are multiple acute or subacute infarcts in the bilateralcerebellum. There is no acute intracranial hemorrhage. There is nomass effect.2. There are findings of probable chronic small vessel ischemicchanges.3. There is minimal to no flow related enhancement in the rightintradural vertebral artery. The left intradural vertebral artery isdiffusely small size. There is segmental marked narrowing of the midand distal portions of the basilar artery due to atheroscleroticdisease. There is origin of the bilateral posterior cerebralarteries, normal variant. There is no stenosis of the anteriorcirculation.4. There is a 2 mm inferiorly orientated focal outpouching arisingfrom the paraophthalmic segment of the left ICA which is mostconsistent with an aneurysm. 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 There is no acute intracranial hemorrhage. There is nomass effect.2. There are findings of probable chronic small vessel ischemicchanges.3. There is minimal to no flow related enhancement in the rightintradural vertebral artery. The left intradural vertebral artery isdiffusely small size. There is segmental marked narrowing of the midand distal portions of the basilar artery due to atheroscleroticdisease. There is origin of the bilateral posterior cerebralarteries, normal variant. There is no stenosis of the anteriorcirculation.4. There is a 2 mm inferiorly orientated focal outpouching arisingfrom the paraophthalmic segment of the left ICA which is mostconsistent with an aneurysm. MRI Brain w/wo Contrast [Jan 06 2018 3:53PM]Impression:MRI Brain w/wo Contrast [Jan 06 2018 2:50PM]Impression:MRI Brain w/wo Contrast [Jan 06 2018 1:59PM]Impression:No focal infiltrate or pneumothorax is identified. Xray Chest 1 View [Jan 06 2018 10:54AM]Assessment and Plan:Assessment:72 year old female HPI & PMHx as per H&P Labs, vitals, and consulting notesreviewed and appreciated. Pt discussed with Dr. Mahan, seen and examined. Alllabs, VS and previous plan of care reviewed.A/P - As belowSuraj Jensen MSN, ROLL EDGE STITCHER HAND-PULP MILL OPERATOR-In collaboration with Dr. William Foreman [facility]Office: [phone]: [phone]: [phone] [facility] [address] [place], [place] [address]Impression 1: cvaPlan for Impression 1: -jeanne cerebellar -Neurology following input noted and appreciated -C/w stroke protocol -C/w PTOT-C/w ASA and plavixImpression 2: htnPlan for Impression 2: hold medsresume tomorrowImpression 3: hyperlipidemiaPlan for Impression 3: cont with statin for nowImpression 4: cadPlan for Impression 4: monitor for arrythmia on telewill likely need a montior if neuro agreesImpression 5: VTE PPxPlan for Impression 5: -See ordersImpression 6: Discharge PlanningPlan for Impression 6: -Pending resolution of the above-Agree Pt will need rehab d/w Pt and familySignature/Cosignature /Attestation:Attending Only - Shared Visit with Advanced Practice Provider This is asharedvisit. I have reviewed the Advanced Practice Provider?s encounter note,approve the Advanced Practice Provider?s documentation, and provide thefollowing additional information from my personal encounter.Comments/ Additional Findingspt seen above notedecho pendingwill cont with currentresume bP meds tomorrowdc plan ac rehabTaylor Mahan MDElectronic Signatures:Suraj Jensen (ROLL EDGE STITCHER HAND-PULP MILL OPERATOR) (Signed 08-Jan-2018 10:50) Authored: Service, Subjective Data, Objective Data, Assessment and Plan,Signature/Cosignature/ AttestationTaylor Mahan) (Signed 09-Jan-2018 05:58) Authored: Subjective Data, Assessment and Plan,Signature/Cosignature/ Attestation Co-Signer: Service, Subjective Data, Objective Data, Assessment and Plan,Signature/Cosignature/ AttestationLast Updated: 09-Jan-2018 05:58 by Taylor Mahan) Normal [facility] Daily Progress Hugk-Gmspx-Mf monica 01-08-2018 Daily Progress Jhjc-Uvemj-Yuorfhg Service: Neuro-GeneralSubjective Data:ALICIA BARRIENTOS is a 72 year old Female who is Hospital Day # 3.Additional Information:No new complaints. She walked with PT.Objective Data:Objective Information: T P R BP TjD1Jqiwe 36.6 49 18 152/57 93%Date/Time 01/08 4:45 01/08 4:45 01/08 4:45 01/08 4:45 01/08 4:45Range (36.4C - 36.6C ) (48 - 57 ) (14 - 18 ) (141 - 174 )/(57 - 84 ) (93%- 98% )Physical Exam:Neurological: Seated in bedside chair. Alert and appropriate in conversation.Occasional stutter but no dysarthria. Facial motor function symmetric. R fingerto nose moderately ataxic, L intact.Medication:Medicatio ns: Continuous Medications -----1. Sodium Chloride 0.9% Infusion: 1000 mL IntraVenous Scheduled Medications -----1. Aspirin Chewable: 81 mg Oral Daily2. Atorvastatin: 80 mg Oral Daily3. Clopidogrel: 75 mg Oral Daily4. Docusate: 100 mg Oral 2 Times a Day5. Enoxaparin SubCutaneous: 40 mg SubCutaneous Every 24 Hours6. Gadobenate Dimeglumine (MultiHance-Radiology Contrast): 14.96 mLIntraVenous Push Once7. Sennosides: 2 tablet(s) Oral Daily PRN Medications -----1. Acetaminophen: 650 mg Oral Every 6 HoursRadiology Results:Results:Echo is pendingAssessment and Plan:Assessment:Stable s/p recent bilateral cerebellar patchy strokes.Echo pending.Continue aspirin and clopidogrel.Will benefit from rehab.Signature/Cosignature /Attestation:Provider/Team Contact Info-Pager Number [phone] Signatures:Hubert Hurd) (Signed 08-Jan-2018 14:18) Authored: Service, Subjective Data, Objective Data, Assessment and Plan,Signature/Cosignature/ AttestationLast Updated: 08-Jan-2018 14:18 by Hubert Hurd) Normal [facility] TROPONIN Ion 01-08-2018 Troponin I.cardiac mass conc 0.02 ng/mL Normal 0.00 - 0.[address] [facility] Comment on above: Result Comment: LESS THAN 0.04 NG/ML: NEGATIVEREPEAT TESTING IN FOUR TO SIX HOURSIF CLINICALLY INDICATED.0.04 - 0.5 NG/ML: CONSISTENT WITH POSSIBLECARDIAC DAMAGE AND POSSIBLE INCREASEDCLINICAL RISK.SERIAL MEASUREMENTS MAY HELP ASSESS EXTENT OFMYOCARDIAL DAMAGE.>0.5 NG/ML: CONSISTENT WITH CARDIAC DAMAGE,INCREASED CLINICAL RISK AND MYOCARDIALINFARCTION. SERIAL MEASUREMENTS MAY HELPASSESS EXTENT OF MYOCARDIAL DAMAGE..Note: Troponin [facility] testing [facility] performed [facility] Direct result comparisons should onlybe made within the same method. Performed By: #### P TINR ####[id number] [place] [id number] BASIC METABOLIC PANELon 12-25 Anion gap 12 mmol/L Normal 10 - [address] [facility] Comment on above: Performed By: #### C BCDF ####[facility] [id number] [place] [id number] Bicarbonate (HCO3) 25 mmol/L Normal 21 - 32 [facility] Comment on above: Performed By: #### C BCDF ####[facility] [id number] [place] [address] Calcium 9.9 mg/dL Normal 8.6 - 10.[address] [facility] Comment on above: Performed By: #### C BCDF ####[facility] [id number] [place] [address] Chloride 107 mmol/L Normal 98 - [address] [facility] Comment on above: Performed By: #### C BCDF ####[facility] [id number] [place] [address] Creatinine 0.88 mg/dL Normal 0.50 - 1.[address] [facility] Comment on above: Performed By: #### C BCDF ####[facility] [id number] [place] [address] eGFR (non-black) mL/min/{1.73_m2} Normal >[address] [facility] Comment on above: Result Comment: CALC ULATIONS OF ESTIMATED GFR ARE PERFORMED USING THE MDRD STUDY EQUATION FOR THE IDMS-TRACEABLE CREATININE METHODS. CLIN CHEM 2007;53:766-72 Performed By: #### C BCDF ####[facility] [id number] [place] [id number] Glucose mass conc 92 mg/dL Normal 74 - 99 [facility] Comment on above: Performed By: #### C BCDF ####[id number] [place] [id number] Potassium molar conc 4.0 mmol/L Normal 3.5 - 5.3 [facility] Comment on above: Performed By: #### C BCDF ####[facility] [id number] [place] [id number] Sodium 140 mmol/L Normal 136 - [address] [facility] Comment on above: Performed By: #### C BCDF ####[facility] [id number] [place] [address] Urea nitrogen 10 mg/dL Normal 6 - [address] [facility] Comment on above: Performed By: #### C BCDF ####[facility] [id number] [place] [address] CBCon 01-07-2018 Erythrocyte distribution width Auto Ratio (RBC) 13.5 % Normal 11.5 - 14.[address] [facility] Comment on above: Performed By: #### C BCDF ####[facility] [id number] [place] [address] Erythrocytes (RBC) 5.45 x10E12/L High 4.00 - 5.[address] [facility] Comment on above: Performed By: #### C BCDF ####[facility] [id number] [place] [address] Hematocrit (HCT) 50.4 % High 36.0 - 46.[address] [facility] Comment on above: Performed By: #### C BCDF ####[facility] [id number] [place] [address] Hemoglobin mass conc (Bld) 16.6 g/dL High 12.0 - 16.[address] [facility] Comment on above: Performed By: #### C BCDF ####[facility] [id number] [place] [address] MCHC mass conc (RBC) 32.9 g/dL Normal 32.0 - 36.[address] [facility] Comment on above: Performed By: #### C BCDF ####[facility] [id number] [place] [address] MCV 92 fL Normal 80 - [address] [facility] Comment on above: Performed By: #### C BCDF ####[facility] [id number] [place] [address] Platelets 238 10*3/uL Normal 150 - [address] [facility] Comment on above: Performed By: #### C BCDF ####[facility] [id number] [place] [address] WBC (Leukocytes) 7.2 10*3/uL Normal 4.4 - 11.3 [facility] Comment on above: Performed By: #### C BCDF ####[facility] [id number] [place] [address] Consult - Neuro-Generalon Consult - Neuro-General Service:Service:Service: GeneralConsult:Consult requested by (Attending Name): Dr. Aleman: StrokeHistory of Present Illness:HPI:72 yo R handed woman with past medical hx significant for HTN,dyslipidemia, CAD s/p CABG in 1998, coronary stent, left TKA.Evaluated today accompanied by daughter and sisters who are at bedside.Patient lives with , who is infirm s/p ICH about 10 years ago, and ishis caregiver. She indicates she is supposed to be taking daily aspirin buthasn't been regularly.She indicates onset a few days ago of instability on her feet and difficultygetting her words out when speaking. 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 Incidental 2 mm LICA paraophthalmic aneurysm.She feels about the same at present, though speech seems a little better. Hasbeen assisted by nursing to go to and from bathroom. Has been able to sipliquids without evident dysphagia. Had a mild headache yesterday which resolvedwith Tylenol.Neck MRA wasn't done. Echo is pending.Review Family/Social History and ROS:Review Family/Social History and ROS:Social Hx: Never smokerFamily Hx: Negative for strokeConstitutional: NEGATIVE: Fever, ChillsEyes: NEGATIVE: Vision Loss/ ChangeENMT: COMMENTS: No acute hearing change or tinnitusRespiratory: NEGATIVE: Shortness of BreathCardiac: NEGATIVE: Chest PainGastrointestinal: NEGATIVE: VomitingGenitourinary: COMMENTS: No incontinenceMusculoskeletal : POSITIVE: Pain; COMMENTS: L shoulderNeurological: COMMENTS: Per HPISkin: NEGATIVE: Rash Allergies:? No Known Allergies:Objective:Objecti ve Information: T P R BP BmN9Uercz 35.8 47 14 170/64 99%Date/Time 01/07 8:38 01/07 8:38 01/07 8:38 01/07 8:38 01/07 8:38Range (35.8C - 37.2C ) (47 - 80 ) (14 - 22 ) (131 - 170 )/(53 - 99 ) (96%- 99% )Highest temp of 37.2 C was recorded at 01/06 20:01Physical Exam:Constitutional: Sitting up in bedside chair, no distressCardiovascular: Regular rhythm, no murmur, no carotid bruitsNeurological: Clear sensorium without fluctuation. Oriented to self, date,Lance. Recent recall 2/3 improving to 3 with multiple choice cue. Remote recallintact for details of past medical hx. Attention and concentration: 02/28 WORLDbackward. [facility] for [facility] information. All modalities oflanguage intact. Fluent without paraphasic errors. Funduscopic exam not wellseen OU. PERRL, EOMI without nystagmus, visual nair full to confrontationtested binocularly, facial movements and pin sensation intact, mildly hard ofhearing, palatal rise symmetric and no dysarthria, shrug 5/5, tongue protrudesmidline and moves normally. Muscle bulk and tone normal, no drift/asymmetry offinger taps, 5/5 power throughout except 4+ L deltoid confounded by shoulderpain. Tendon reflexes 1+ at biceps/brachioradialis/knee s, neutral plantars.Finger-->nose and heel-->murphy mildly ataxic R, intact L. CASEY slower R comparedto L. Pin and light touch sensation symmetric over hands. Station mildlyunsteady. Gait over a few steps moderately broad based, slow and tentative(with balance assist), not requiring weightbearing assist.General Neurology:General Neurology Extensive Exam: Documented aboveMedications:Medication s: Continuous Medications -----1. Sodium Chloride 0.9% Infusion: 1000 mL IntraVenous Scheduled Medications -----1. Aspirin Chewable: 81 mg Oral Daily2. Atorvastatin: 80 mg Oral Daily3. Docusate: 100 mg Oral 2 Times a Day4. Enoxaparin SubCutaneous: 40 mg SubCutaneous Every 24 Hours5. Gadobenate Dimeglumine (MultiHance-Radiology Contrast): 14.96 mLIntraVenous Push Once6. Sennosides: 2 tablet(s) Oral Daily PRN Medications -----1. 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.Recommend:Neck MRAEcho pendingTelemetryAspirin + Plavix x 90 days, then can reduce to antiplatelet monotherapyNeurosurgery consult (inpatient or outpatient) for aneurysm recommendationsPT/OTDacrystal r is concerned patient should go to rehab rather than directly homebecause of 's care needs; advised her to discuss w/ SW.Outpatient followup with stroke neurology in 2-3 months.Signature/Cosignatur e/Attestation:Provider/Team Contact Info-Pager Number [phone] Signatures:Hubert Hurd) (Signed 07-Jan-2018 12:30) Authored: Service, History of Present Illness, Review Family/Social Historyand ROS, Allergies, Objective, Assessment/Recommendations, Signature/Cosignature/Attes tationLast Updated: 07-Jan-2018 12:30 by Hubert Hurd) Normal [facility] HEMOGLOBIN A1Con 01-07-2018 Glucose mass conc 88 mg/dL Normal [facility] Comment on above: Performed By: #### P TINR ####[facility] [id number] [place] [address] Hemoglobin A1c/Hemoglobin.total mass fraction (Bld) 4.7 % Normal [facility] Comment on above: Result Comment: Diag nosis of Diabetes-Adults Non-Diabetic: < or = 5.6% Increased risk for developing diabetes: 5.7-6.4% Diagnostic of diabetes: > or = 6.5%. Monitoring of Diabetes Age (y) Therapeutic Goal (%) Adults: >18 <7.0 Pediatrics: 13-18 <7.5 7-12 <8.0 0- 6 7.5-8.5 [employer]. Diabetes Care 33(S1), Oct 2009. Performed By: #### P TINR ####[facility] [id number] [place] [address] History and Physicalon 01-07 History and Physical History of Present Illness:Admission Reason: cvaHPI:patient is a 72-year-old female who came to the ency room due todifficulty walking and having difficulty talkig. According to the patien sheis having difficulty with her balance for the pas2 days she denies ss orspinninshe also has been havingdifficulty with talking which she feels that she has tothink before we anything which is unusual for herAt baseline patient is alert and appropriate and [facility] significant for hypertension hyperlipidemia coronaryartery disease status post CABG in 1998 and also had a stent placed about a yraogsurgery left TKA, cabgallergies she is intolerant of statinsmeds reviewed see med listGen.: No weight loss, fatigue, anorexia, insomnia, fever.Eyes: No vision loss, double vision, drainage, eye pain.ENT: No pharyngitis, dry mouth.Cardiac: No chest pain, palpitations, syncope, near syncope.Pulmonary: No shortness of breath, cough, hemoptysis.Heme/lymph: No swollen glands, fever, bleeding.GI: No abdominal pain, change in bowel habits, melena, hematemesis,hematochezia, nausea, vomiting, diarrhea.: No discharge, dysuria, frequency, urgency, hematuria.Musculoskeletal: No limb pain, joint pain, joint swelling.Skin: No rashes.Psych: No depression, anxiety, suicidality, homicidality.Review of systems is otherwise negative unless stated above or in history ofpresent illness.Comorbidities:? Comorbid Conditions hypertensionFamily History:Family History: reviewed and not pertinent to presenting problemCancer: yesCAD: yesSocial History:Social History:Smoking Status never smokerAlcohol Use denies Allergies:? No Known Allergies:Review of Systems:Constitutional: NEGATIVE: Fever, Chills, Anorexia, Weight Loss, MalaiseEyes: NEGATIVE: Blurry Vision, Drainage, Diploplia, Redness, Vision Loss/ChangeObjective:Object betzaida Information: T P R BP HhM0Yderc 35.8 47 14 170/64 99%Date/Time 01/07 8:38 01/07 8:38 01/07 8:38 01/07 8:38 01/07 8:38Range (35.8C - 37.2C ) (47 - 80 ) (14 - 22 ) (131 - 188 )/(53 - 119 )(95% - 99% )Highest temp of 37.2 C was recorded at 01/06 20:01 Weights01/06 20:10: Weight in kg (Weight (kg)) 65.73 20:10: Weight in lbs ((lbs)) 1453 20:10: BMI (kg/m2) (BMI (kg/m2)) 30.28Physical Exam:Constitutional: Well developed, awake/alert/oriented x3, no distress, alert andcooperativeEyes: PERRL, EOMI, clear scleraENMT: mucous membranes moist, no apparent injury, no lesions seenHead/Neck: Neck supple, no apparent injury, thyroid without mass or tenderness,No JVD, trachea midline, no bruitsRespiratory/Thorax: Patent airways, CTAB, normal breath sounds with good chestexpansion, thorax symmetricCardiovascular: Regular, rate and rhythm, no murmurs, 2+ equal pulses of theextremities, normal S 1and S 2Gastrointestinal: Nondistended, soft, non-tender, no rebound tenderness orguarding, no masses palpable, no organomegaly, +BS, no bruitsMusculoskeletal: ROM intact, no joint swelling, normal strengthExtremities: normal extremities, no cyanosis edema, contusions or wounds, noclubbingNeurological: alert oriented x3 finger nose slow but intact heel murphy ok gait not teted motor nonfocalsppech dysarthria mildLymphatic: No significant lymphadenopathyPsychologica l: Appropriate mood and behaviorSkin: Warm and dry, no lesions, no rashesMedications:Medicatio ns: Continuous Medications -----1. Sodium Chloride 0.9% Infusion: 1000 mL IntraVenous Scheduled Medications -----1. Aspirin Chewable: 81 mg Oral Daily2. Atorvastatin: 80 mg Oral Daily3. Docusate: 100 mg Oral 2 Times a Day4. Enoxaparin SubCutaneous: 40 mg SubCutaneous Every 24 Hours5. Gadobenate Dimeglumine (MultiHance-Radiology Contrast): 14.96 mLIntraVenous Push Once6. Sennosides: 2 tablet(s) Oral Daily PRN Medications -----1. Acetaminophen: 650 mg Oral Every 6 HoursRecent Lab Results:Results:I have reviewed these laboratory results:Lipid Panel 07-Jan-2018 07:15:00Result ValueCholesterol, Serum 196 . AGE DESIRABLE BORDERLINE HIGH HIGH 0-19 Y 0 - 169 170 - 199 >/= 200 20-24 Y 0 - 189 190 - 224 >/= 225 >24 Y 0 - 199 200 - 239 >/= 240 All ranges are based on fasting sampHDL Cholesterol, Serum 44.9 . AGE VERY LOW LOW NORMAL HIGH 0-19 Y < 35 < 40 40-45 ---- 20-24 Y ---- < 40 >45 ---- >24 Y ---- < 40 40-60 >60.Cholesterol/HDL Ratio 4.4 REF VALUESDESIRABLE < 3.4HIGH RISK > 5.0LDL, Level 127 . NEAR BORD AGE DESIRABLE OPTIMAL HIGH HIGH VERY HIGH 0-19 Y 0 - 109 --- 110-129 >/= 130 ---- 20-24 Y 0 - 119 --- 120-159 >/= 160 ---- >24 Y 0 - HVLDL, Serum 24Triglycerides, Serum 119 . AGE DESIRABLE BORDERLINE HIGH HIGH VERY HIGH 0 D-90 D 19 - 174 ---- ---- ----91 D- 9 Y 0 - 74 75 - 99 >/= 100 ---- 10-19 Y 0 - 89 90 - 129 >/= 130 ----Complete Blood Count 07-Jan-2018 07:15:00Result ValueWhite Blood Cell Count 7.2Red Blood Cell Count 5.45 HHGB 16.6 HHCT 50.4 HMCV 92MCHC 32.9PLT 238RDW-CV 13.5Basic Metabolic Panel Trending ViewResult 07-Jan-2018 07:15:00 06-Jan-2018 10:18:00Glucose, Serum 92 94NA 140 139K 4.0 3.9CL 107 104Bicarbonate, Serum 25 25Anion Gap, Serum 12 14BUN 10 11CREAT 0.88 1.01GFR-Non >60 54 AGFR- >60 65Calcium, Serum 9.9 10.6 HComplete Blood Count + Differential 06-Jan-2018 10:18:00Result ValueWhite Blood Cell Count 7.5Red Blood Cell Count 5.86 HHGB 17.8 HHCT 53.7 HMCV 92MCHC 33.1PLT 252RDW-CV 13.3Neutrophil % 71.6Immature Granulocytes % 0.4Lymphocyte % 17.4Monocyte % 7.6Eosinophil % 2.7Basophil % 0.3Neutrophil Count 5.36Lymphocyte Count 1.30Monocyte Count 0.57Eosinophil Count 0.20Basophil Count 0.02PT + INR, Plasma 06-Jan-2018 10:18:00Result ValueProthrombin Time, Plasma 11.3International Normalized Ratio, Plasma 1.0Troponin I, Serum 06-Jan-2018 10:18:00Result ValueTroponin I, Serum <0.02Radiology Results:Results:No Results have been selected. 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 There is no acute intracranial hemorrhage. There is nomass effect.2. There are findings of probable chronic small vessel ischemicchanges.3. There is minimal to no flow related enhancement in the rightintradural vertebral artery. The left intradural vertebral artery isdiffusely small size. There is segmental marked narrowing of the midand distal portions of the basilar artery due to atheroscleroticdisease. There is origin of the bilateral posterior cerebralarteries, normal variant. There is no stenosis of the anteriorcirculation.4. There is a 2 mm inferiorly orientated focal outpouching arisingfrom the paraophthalmic segment of the left ICA which is mostconsistent with an aneurysm. 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 There is no acute intracranial hemorrhage. There is nomass effect.2. There are findings of probable chronic small vessel ischemicchanges.3. There is minimal to no flow related enhancement in the rightintradural vertebral artery. The left intradural vertebral artery isdiffusely small size. There is segmental marked narrowing of the midand distal portions of the basilar artery due to atheroscleroticdisease. There is origin of the bilateral posterior cerebralarteries, normal variant. There is no stenosis of the anteriorcirculation.4. There is a 2 mm inferiorly orientated focal outpouching arisingfrom the paraophthalmic segment of the left ICA which is mostconsistent with an aneurysm. MRI Brain w/wo Contrast [Jan 06 2018 3:53PM]Impression:MRI Brain w/wo Contrast [Jan 06 2018 2:50PM]Impression:MRI Brain w/wo Contrast [Jan 06 2018 1:59PM]Impression:No focal infiltrate or pneumothorax is identified. Xray Chest 1 View [Jan 06 2018 10:54AM]Impression:No evidence of acute cortical ischemia or intracranial hemorrhage.Chronic changes of volume loss and small vessel ischemic disease.No evidence of intracranial hemorrhage or displaced skull fracture. CT Head without Contrast [Jan 06 2018 10:47AM]Assessment and Plan:Impression 1: cvaPlan for Impression 1: jeanne cerebellar check echo neurostroke protocolImpression 2: htnPlan for Impression 2: hold medsImpression 3: hyperlipidemiaPlan for Impression 3: cont with statin for nowhowever can consider livoloImpression 4: cadPlan for Impression 4: monitor for arrythmia on telewill likely need a montior if neuro agreesSignatures/Attestatio n/Certification:Attending Provider ? Inpatient Certification Statement I certify thispatient?brielle for inpatient care based on the above documentation including; the orderto admit as inpatient, the anticipated length of stay, diagnosis, problem listand plan of care, and discharge plan.Electronic Signatures:Taylor Mahan) (Signed 07-Jan-2018 09:46) Authored: History of Present Illness, Comorbidities, Family History, SocialHistory, Allergies, Review of Systems, Objective, Assessment and Plan,Signatures/Attestation /CertificationLast Updated: 07-Jan-2018 09:46 by Taylor Mahan) Normal [facility] LIPID PANEL (CORONARY RISK 2 )on 01-07-2018 Cholesterol 196 mg/dL Normal 0 - [address] [facility] Comment on above: Result Comment: . AG E DESIRABLE BORDERLINE HIGH HIGH 0-19 Y 0 - 169 170 - 199 >/= 200 20-24 Y 0 - 189 190 - 224 >/= 225 >24 Y 0 - 199 200 - 239 >/= 240 All ranges are based on fasting samples. Specific therapeutic targets will vary based on patient-specific cardiac risk.. Pediatric guidelines reference:Pediatrics 2011, 128(S5). Adult guidelines reference: NCEP ATPIII Guidelines, KEN 2001, 258:2486-97. Venipuncture immediately after or during the administration of Metamizole may lead to falsely low results. Testing should be performed immediately prior to Metamizole dosing. Performed By: #### C BCDF ####[facility] [id number] [place] [address] Cholesterol in VLDL mass conc 24 mg/dL Normal 0 - [address] [facility] Comment on above: Performed By: #### C BCDF ####[id number] [place] [address] Cholesterol to HDL Ratio 4.4 {ratio} Normal [facility] Comment on above: Result Comment: REF VALUESDESIRABLE < 3.4HIGH RISK > 5.0 Performed By: #### C BCDF ####[id number] [place] [address] HDL Cholesterol 44.9 mg/dL Normal [facility] Comment on above: Result Comment: . AG E VERY LOW LOW NORMAL HIGH 0-19 Y < 35 < 40 40-45 ---- 20-24 Y ---- < 40 >45 ---- >24 Y ---- < 40 40-60 >60. Performed By: #### C BCDF ####[facility] [id number] [place] [address] LDL Cholesterol 127 mg/dL High 0 - [address] [facility] Comment on above: Result Comment: . TIM TAPIA AGE DESIRABLE OPTIMAL HIGH HIGH VERY HIGH 0-19 Y 0 - 109 --- 110-129 >/= 130 ---- 20-24 Y 0 - 119 --- 120-159 >/= 160 ---- >24 Y 0 - 99 100-129 130-159 160-189 >/=190. Performed By: #### C BCDF ####[facility] [id number] [place] [address] Triglyceride 119 mg/dL Normal 0 - [address] [facility] Comment on above: Result Comment: . AG E DESIRABLE BORDERLINE HIGH HIGH VERY HIGH 0 D-90 D 19 - 174 ---- ---- ----91 D- 9 Y 0 - 74 75 - 99 >/= 100 ---- 10-19 Y 0 - 89 90 - 129 >/= 130 ---- 20-24 Y 0 - 114 115 - 149 >/= 150 ---- >24 Y 0 - 149 150 - 199 200- 499 >/= 500. Venipuncture immediately after or during the administration of Metamizole may lead to falsely low results. Testing should be performed immediately prior to Metamizole dosing. Performed By: #### C BCDF ####[facility] [id number] [place] [address] NR MRA NECK WO.Con 8 NR MRA NECK WO.C Name: ALICIA BARRIENTOS STUDY:MRA NECK WO.C; 01/07/2018 4:30 pm INDICATION:Signs/Symptoms: Stroke. COMPARISON:None. ORDERING CLINICIAN:HUBERT HURD TECHNIQUE:Time of flight MRA of the neck was performed. The images werereviewed as source images and in multiplanar reformats and maximumintensity projections. FINDINGS:All there is mild approximately 25 and 35% stenosis involving theproximal left internal carotid artery by NASCET criteria. There islack of flow signal within the right vertebral artery consistent withocclusion of this vessel. The remainder of the cervical vasculatureis patent. IMPRESSION:25-35% stenosis involving the proximal left internal carotid artery Occlusion of the right vertebral arteryElectronically signed by: PRABHA GOMEZ MD Normal [facility] Admission Risk Screen - Adul ton 01-06-2018 Admission Risk Screen - Adult Allergies: Allergies:? No Known Allergies:Patient Verification:? New W ID Band Applied in my Department yes? Patient Identity Verified By patient? ID Band FULL Name, include Middle, spelling matches patient's ID used forverification yes? ID Band Matches Patient ID used for Verfication yes? ID Band MRN Matches EMR MRN yesAdvance Directive:? Advance Directive Medical yes? Advance Directive type Living Will, Durable Power of Generator Switchboard Operator forHealthcare? Living Will Availability Living Will not available now? Living Will Requested 06-Jan-2018? Durable Power of Generator Switchboard Operator Availability DPOA not available now? Durable Power of Generator Switchboard Operator Requested 06-Jan-2018? Durable Power of Generator Switchboard Operator contact (name and number) daughter [phone]? Advance Directive Mental Health not applicableFalls Screen:Type of Assessment admissionModerate Risk Factors patient care equipment (scds, iv?s, chest tubes, jackson,etc)High Risk Factors gait instabilityFall Injury Risk noneFall Injury Risk Conclusion high falls risk with low injury riskUniversal Safety Interventions WDL *orient to call system *instruct to callforassistance before getting out of bed *non-slip footwear when patient is out ofbed *call abdul in reach *personal items and telephone in reach *physically safeenvironment (no spills or clutter) *bed in lowest position with wheels locked*appropriate side rails in place *room/bathroom lighting operational, lightcord in reach *appropriate signage on doorFall and Injury Risk Interventions supervised toileting (mandatory for allhighrisk patients), exit (bed/chair) alarms (mandatory for all high risk patients),bed alarm - zero scale to ensure bed alarm operation, educate pt/family,educate patient/family for risk for injury (fractures and bleeding)Family Violence Screen:? Are you or have you been threatened or abused physically, emotionally, orsexually by anyone? no (1)? Do you feel UNSAFE going back to the place where you are living? no (1)? Clinical assessment: Are there any apparent signs of injuries/behaviors thatcould be related to abuse/neglect no (1)? Social Service Consult for abuse/neglect needed this visit? noFunctional screen:? Functional Screen: In the recent/past 2-4 weeks, patient or family havenoticed a significant change in speech or language, a significant change infunction affecting balance, or the ability to safely transfer or ambulate (Andis not on bedrest)Learning Assessment (Patient):? Patient is Able to be Assessed for Learning yes? Factors Influencing Readiness to Learn acuteness of illness? Factors that Impact Ability to Learn none? Devices/Methods Used to Communicate none? Learning Preferences verbal instruction? Cultural Considerations none? Developmental Considerations none? Muslim Considerations catholicLearning Assessment (Other Learner):? Other learner available noSuicide/Depression Screen:? During the past month, have you often been bothered by feeling down,depressed or hopeless? no (1)? During the past month, have you often had little interest or pleasure indoing things? no (1)? Have you had any thoughts of harming yourself? no (1)? Have you had any thoughts of harming anyone else? no (1)Adult Nutrition Screen:? Have you recently lost weight without trying no? Have you been eating poorly because of a decreased appetite no? MST Score 0? Risk MST = 0 or 1 Not at risk. Eating well with little or no weight loss? Nutrition Consult needed this visit? no? Can Patient Participate in Room Service? yes? Patient requires Paper Dishes/Plastic Utensils noPain Screen:? Pain Scale numerical 0-10? Pain Scale Education teaching provided? Current Pain Level 0 = None? Acceptable Pain Level 0 = None? Expression of Pain (nonverbal) none? Chronic Pain noSpiritual Screen:? Are there any cultural, spiritual, christianity practices/values/needs that areimportant for us to know? yes catholicCAGE:Is this an injured patient at a Trauma Center ([facility] / [facility]): no (1)Vaccinations:Vaccination - Influenza Vaccination Screen:? Is it flu season? (between and ) Yes? Screening for identified contraindications to influenza vaccination patientalready received vaccine this seasonVaccination - Pneumonia Vaccination Screen:? Patient has received a previous pneumonia vaccine: yesBraden:Skin - Sameer Scale:? Sameer: Sensory Perception (response to environment) (4) no impairment? Sameer: Moisture (degree skin exposed to moisture) (4) rarely moist? Sameer: Activity (ability to walk) (3) walks occasionally? Sameer: Mobility (amount/control of body movement) (4) no limitation? Sameer: Nutrition (quality of food intake) (3) adequate? Sameer: Friction and Shear (3) no apparent problem? Sameer: Score 21Significant Indicatiors:Significant Indicators: CompletePressure Injury:Pressure Injury Present on Admission noElectronic Signatures:Elva Lyon (RN) (Signed 06-Jan-2018 20:19) Authored: Admission Risk Screens, Vaccinations, Sameer, Pressure InjuryLast Updated: 06-Jan-2018 20:19 by Elva Lyon (RN)References:1. Data Referenced From Risk Screen - Adult Emergency 01/06/2018 11:[address] [facility] BASIC METABOLIC PANELon - Anion gap 14 mmol/L Normal 10 - [address] [facility] Comment on above: Performed By: #### B MP ####[facility] [id number] [place] [address] Bicarbonate (HCO3) 25 mmol/L Normal 21 - 32 [facility] Comment on above: Performed By: #### B MP ####[id number] [place] [id number] Calcium 10.6 mg/dL High 8.6 - 10.[address] [facility] Comment on above: Performed By: #### B MP ####[id number] [place] [id number] Chloride 104 mmol/L Normal 98 - [address] [facility] Comment on above: Performed By: #### B MP ####[id number] [place] [id number] Creatinine 1.01 mg/dL Normal 0.50 - 1.[address] [facility] Comment on above: Performed By: #### B MP ####[id number] [place] [id number] eGFR (non-black) 65 mL/min/{1.73_m2} Normal >[address] [facility] Comment on above: Result Comment: CALC ULATIONS OF ESTIMATED GFR ARE PERFORMED USING THE MDRD STUDY EQUATION FOR THE IDMS-TRACEABLE CREATININE METHODS. CLIN CHEM 2007;53:766-72 Performed By: #### B MP ####[id number] [place] [id number] eGFR (non-black) 54 mL/min/{1.73_m2} Invalid Interpretation Code >[address] [facility] Comment on above: Performed By: #### B MP ####[facility] [id number] [place] [id number] Glucose mass conc 94 mg/dL Normal 74 - 99 [facility] Comment on above: Performed By: #### B MP ####[id number] [place] [id number] Potassium molar conc 3.9 mmol/L Normal 3.5 - 5.3 [facility] Comment on above: Performed By: #### B MP ####[id number] [place] [id number] Sodium 139 mmol/L Normal 136 - [address] [facility] Comment on above: Performed By: #### B MP ####[id number] [place] [id number] Urea nitrogen 11 mg/dL Normal 6 - [address] [facility] Comment on above: Performed By: #### B MP ####[facility] [id number] [place] [id number] CBC AND DIFFERENTIALon 01-06 % AUTOMATED IMMATURE GRAN 0.4 % Normal 0.0 - 0.[address] [facility] Comment on above: Result Comment: Perc ent differential counts (%) should be interpreted in the context of the absolute cell counts (cells/L). Performed By: #### C BCDF ####[facility] [id number] [place] [id number] % NEUTROPHIL 71.6 % Normal 40.0 - 80.[address] [facility] Comment on above: Performed By: #### C BCDF ####[id number] [place] [id number] Basophils/100 WBC Auto (Bld) 0.02 x10E9/L Normal 0.00 - 0.[address] [facility] Comment on above: Performed By: #### C BCDF ####[id number] [place] [address] Basophils/100 WBC Auto (Bld) 0.3 % Normal 0.0 - 2.[address] [facility] Comment on above: Performed By: #### C BCDF ####[id number] [place] [id number] Eosinophils 0.20 10*3/uL Normal 0.00 - 0.[address] [facility] Comment on above: Performed By: #### C BCDF ####[id number] [place] [id number] Eosinophils/100 leukocytes 2.7 % Normal 0.0 - 6.[address] [facility] Comment on above: Performed By: #### C BCDF ####[id number] [place] [id number] Erythrocyte distribution width Auto Ratio (RBC) 13.3 % Normal 11.5 - 14.[address] [facility] Comment on above: Performed By: #### C BCDF ####[id number] [place] [id number] Erythrocytes (RBC) 5.86 x10E12/L High 4.00 - 5.[address] [facility] Comment on above: Performed By: #### C BCDF ####[id number] [place] [id number] Hematocrit (HCT) 53.7 % High 36.0 - 46.[address] [facility] Comment on above: Performed By: #### C BCDF ####[id number] [place] [id number] Hemoglobin mass conc (Bld) 17.8 g/dL High 12.0 - 16.[address] [facility] Comment on above: Performed By: #### C BCDF ####[id number] [place] [id number] Lymphocytes 1.30 10*3/uL Normal 0.80 - 3.[address] [facility] Comment on above: Performed By: #### C BCDF ####[id number] [place] [id number] Lymphocytes/100 leukocytes 17.4 % Normal 13.0 - 44.[address] [facility] Comment on above: Performed By: #### C BCDF ####[facility] [id number] [place] [address] MCHC mass conc (RBC) 33.1 g/dL Normal 32.0 - 36.[address] [facility] Comment on above: Performed By: #### C BCDF ####[facility] [id number] [place] [address] MCV 92 fL Normal 80 - [address] [facility] Comment on above: Performed By: #### C BCDF ####[facility] [id number] [facility] [place] [address] Monocytes 0.57 10*3/uL Normal 0.05 - 0.[address] [facility] Comment on above: Performed By: #### C BCDF ####[facility] [id number] [place] [address] Monocytes/100 leukocytes 7.6 % Normal 2.0 - 10.[address] [facility] Comment on above: Performed By: #### C BCDF ####[facility] [id number] [place] [address] Neutrophils 5.36 10*3/uL Normal 1.60 - 5.[address] [facility] Comment on above: Performed By: #### C BCDF ####[facility] [id number] [place] [address] Platelets 252 10*3/uL Normal 150 - [address] [facility] Comment on above: Performed By: #### C BCDF ####[facility] [id number] [facility] [place] [place] [address] WBC (Leukocytes) 7.5 10*3/uL Normal 4.4 - 11.3 [facility] Comment on above: Performed By: #### C BCDF ####[facility] [id number] [facility] [place] [address] CHEST 1 VIEWon 01-06-2018 CHEST 1 VIEW Name: ALICIA BARRIENTOS STUDY: CHEST 1 VIEW; 01/06/2018 10:30 am INDICATION:Signs/Symptoms: aphasia. COMPARISON:None. ORDERING CLINICIAN:VENU SOLER FINDINGS:A single AP portable radiograph of the chest was obtained. Multiplecardiac monitoring leads are seen over the chest. Sternal wires andmediastinal surgical clips are present. No focal infiltrate, pleuraleffusion or pneumothorax is identified. The cardiac silhouette isprominent, similar to the prior study. IMPRESSION:No focal infiltrate or pneumothorax is identified.Electronically signed by: GILBERTO MORTON MD Normal [facility] CT HEAD WO CONTRASTon 2017 CT HEAD WO CONTRAST Name: ALICIA BARRIENTOS STUDY:CT HEAD WO CONTRAST; 01/06/2018 10:33 am INDICATION:Signs/Symptoms: aphasia. COMPARISON:None. ORDERING CLINICIAN:VENU SOLER TECHNIQUE:Noncontrast axial CT scan of head was performed. Angled reformats inbrain and bone windows were generated. The images were reviewed inbone, brain, blood and soft tissue windows. FINDINGS:The ventricles, cisterns and sulci are prominent, consistent withmild diffuse volume loss. There are areas of nonspecific white matterhypodensity, which are probably age-related or microvascular innature. Meredith-white differentiation is intact and there is no evidence ofacute cortical infarct. No mass, mass effect or midline shift isseen. There is no evidence of hemorrhage. Tiny area of hypodensity inthe superior left caudate may be due to remote lacunar infarct. The visualized paranasal sinuses are clear. Nasal septal deviation tothe left. IMPRESSION:No evidence of acute cortical ischemia or intracranial hemorrhage.Chronic changes of volume loss and small vessel ischemic disease. No evidence of intracranial hemorrhage or displaced skull fracture.Electronically signed by: FRANCIOSE ARCOS MD Normal [facility] Discharge Planning Noteon Discharge Planning Note Discharge Needs Assessment:? Discharge Planning Assessment Date 06-Jan-2018? Readmission Within the Last 30 Days no previous admission in last 30 daysPatient Learning:? Factors that Impact Ability to Learn none(1)Discharge Planning:Discharge Plannin01/06/18 Social Work ED Review [id number] year old Female presents with complaint(s) of confusion(1)EMS reports thatpt family states she has been more confused with unsteady gait the past fewdays. Pt is tearful and states that she feels she cannot get her words out andjust doesn't feel right. Pt moves all extremities. AOx4.Pt. was reviewed in ED to determine if eligible for ED intercept based oninsurance . Pt. is not qualified for ER intercept: non participating insuranceplan.No previous admissions within last 30 days.No advance directives noted in medical record.I met with pt. at bedside who stated she lives at home with her who isdependent on caregivers. Currently, her daughter's mother -in-law is with lacho while she is at the hospital.Pt. states she provides all care for , is able to drive, prepare mealsand complete her IDLS and ADLS.She does not use any equipment at home and does not have any home health carefor herself or at this time. Her uses a walker and receivesoutpt. therapy which she drives him to.She has support from her daughter Nirmala Au [phone] (Lives [place], [place]).Uyen Mcconnell TRAFFIC SIGN ERECTION SUPERVISOR-S3/ 1425Met withpt. at bedside regarding D/C needs. Pt. originally from home withspouse, she is the caregiver for spouse. States she was independent at home, noHHC. They have cane, walker, wheelchair, and grab bars in shower and by toilet.No other needs identified at this time. PT/OT recommends rehab, pt. agreeableat this time. LACEY made aware.Anne Marie Palmer, LUIS3/ SOCIAL WORK NOTE 11:09SW met with patient and confirmed above. Patient was alert and oriented x3 andrequested that her daughter Nirmala ([phone]) be involved in dischargeplanning. LACEY discussed PT/OT rec for Acute Rehab. [facility] and patient would like [facility].Patient/daughter inquired about possibility of patient's going tofacility with patient while she receives rehab. LACEY explained that it wouldlikely be private pay or necessity for a pending medicaid number for patient'shusband to be placed somewhere without a skillable need. SW also explainedthat he would not be able to stay at [facility] with patient.SW offered ongoing support and guidance not only for patient, but in assistingto find ongoing care for patient's while she is hospitalized. SW alsodiscussed costs associated with transportation to [place], and options. Referralmade, pending acceptance, precert, and medically readiness before discharge.-Megan Brady STEELE-S3 1605Pt has been accepted at [facility]. Precert has been initiated. Willfollow.CEDRIC Nelson-S3 1632Pt is stable for transfer. Precert has been obtained. [facility]. Family is transporting pt, leaving between 6 - 6:30pm. RNgiven number for report. Discharge information given to community organization worker.CEDRIC Nelson-SFinal Disposition/Discharge:Dispo sition/Discharge Information:Discharge/Trans rashmi Information:? Discharge/Transfer Date/Time 09-Jan-2018 18:30? Discharged Accompanied By spouse? Discharge Mode wheelchair? Transportation Method private car? Valuables/Medications/Belon gings Returned yes? Final Disposition Rehab Facility or UnitElectronic Signatures:Silvina Meng (TRAFFIC SIGN ERECTION SUPERVISOR-S) (Signed 09-Jan-2018 16:33) Authored: Discharge Planning Amelia Adames (RN) (Signed 09-Jan-2018 21:01) Authored: Final Disposition/DischargeMelchr Elaine castellanos (MEDICAL IMAGING SPECIALIST) (Signed 06-Jan-2018 16:57) Authored: Discharge Planning Anette Gill (RN) (Signed 07-Jan-2018 14:32) Authored: Discharge Planning Megan Can (TRAFFIC SIGN ERECTION SUPERVISOR) (Signed 08-Jan-2018 11:19) Authored: Discharge Planning NoteLast Updated: 09-Jan-2018 21:01 by Amelia Alfred (RN)References:1. Data Referenced From Risk Screen - Adult Emergency 01/06/2018 11:[address] [facility] NR MRA HEAD W/O Con 01-07-20 18 NR MRA HEAD W/O C Name: ALICIA BARRIENTOS STUDY:MRI BRAIN WO; NR MRA HEAD W/O C; 01/06/2018 2:35 pm INDICATION:Signs/Symptoms: tia. COMPARISON:CT head from 01/06/2018 [id number] ORDERING CLINICIAN:VENU SOLER TECHNIQUE:Axial T2, FLAIR, DWI and sagittal and coronal T1 weighted images ofbrain were acquired.Tfhy-tv-[id number] MRA of the head was performed. The images werereviewed as source images and in multiplanar reformats and maximumintensity projections. FINDINGS:MRI BRAIN: CSF Spaces:The ventricles and sulci are prominent due to age related diffusecerebral volume loss. Basilar cisterns are patent. Parenchyma:There are multiple foci of restricted diffusion in the bilateralcerebellum which are most consistent with acute or subacute infarcts.There is no mass effect. There is no hemorrhagic transformation. There are scattered foci of T2 hyperintensity in the bilateralcerebral hemispheric white matter which are probably sequela ofchronic small vessel ischemic changes. There is an old lacunarinfarct in the left caudate body. Paranasal Sinuses and Mastoids:Visualized paranasal sinuses and mastoid air cells are unremarkable. MRA: Anterior circulation: There is expected flow signal in bilateralintracranial internal carotid arteries, bilateral carotid terminals,bilateral proximal anterior and middle cerebral arteries. Posterior circulation: There is minimal to no flow related enhancement in the rightintradural vertebral artery. The left intradural vertebral artery isdiffusely small size. There is segmental marked narrowing of the midand distal portions of the basilar artery due to atheroscleroticdisease. There is origin of the bilateral posterior cerebral arterieswhich arises from supraclinoid segments of the bilateral internalcarotid arteries. There is a 2 mm inferiorly orientated focal outpouching arising fromparaophthalmic segment of the left ICA (axial 3D time of flightsequence slice 82 of 130) which is most consistent with an aneurysm. IMPRESSION:1. 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 There is no acute intracranial hemorrhage. There is nomass effect. 2. There are findings of probable chronic small vessel ischemicchanges. 3. There is minimal to no flow related enhancement in the rightintradural vertebral artery. The left intradural vertebral artery isdiffusely small size. There is segmental marked narrowing of the midand distal portions of the basilar artery due to atheroscleroticdisease. There is origin of the bilateral posterior cerebralarteries, normal variant. There is no stenosis of the anteriorcirculation. 4. There is a 2 mm inferiorly orientated focal outpouching arisingfrom the paraophthalmic segment of the left ICA which is mostconsistent with an aneurysm. I personally reviewed the images/study and I agree with the findingsas stated. This study was interpreted at [facility], [place], [place].Electronically signed by: ROZINA MULLEN MD Normal [facility] NR MRI BRAIN WOon 01-06-2018 NR MRI BRAIN WO Name: ALICIA BARRIENTOS STUDY:MRI BRAIN WO; NR MRA HEAD W/O C; 01/06/2018 2:35 pm INDICATION:Signs/Symptoms: tia. COMPARISON:CT head from 01/06/2018 [id number] ORDERING CLINICIAN:VENU SOLER TECHNIQUE:Axial T2, FLAIR, DWI and sagittal and coronal T1 weighted images ofbrain were acquired.[id number]-ln-sxhhbr MRA of the head was performed. The images werereviewed as source images and in multiplanar reformats and maximumintensity projections. FINDINGS:MRI BRAIN: CSF Spaces:The ventricles and sulci are prominent due to age related diffusecerebral volume loss. Basilar cisterns are patent. Parenchyma:There are multiple foci of restricted diffusion in the bilateralcerebellum which are most consistent with acute or subacute infarcts.There is no mass effect. There is no hemorrhagic transformation. There are scattered foci of T2 hyperintensity in the bilateralcerebral hemispheric white matter which are probably sequela ofchronic small vessel ischemic changes. There is an old lacunarinfarct in the left caudate body. Paranasal Sinuses and Mastoids:Visualized paranasal sinuses and mastoid air cells are unremarkable. MRA: Anterior circulation: There is expected flow signal in bilateralintracranial internal carotid arteries, bilateral carotid terminals,bilateral proximal anterior and middle cerebral arteries. Posterior circulation: There is minimal to no flow related enhancement in the rightintradural vertebral artery. The left intradural vertebral artery isdiffusely small size. There is segmental marked narrowing of the midand distal portions of the basilar artery due to atheroscleroticdisease. There is origin of the bilateral posterior cerebral arterieswhich arises from supraclinoid segments of the bilateral internalcarotid arteries. There is a 2 mm inferiorly orientated focal outpouching arising fromparaophthalmic segment of the left ICA (axial 3D time of flightsequence slice 82 of 130) which is most consistent with an aneurysm. IMPRESSION:1. 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 There is no acute intracranial hemorrhage. There is nomass effect. 2. There are findings of probable chronic small vessel ischemicchanges. 3. There is minimal to no flow related enhancement in the rightintradural vertebral artery. The left intradural vertebral artery isdiffusely small size. There is segmental marked narrowing of the midand distal portions of the basilar artery due to atheroscleroticdisease. There is origin of the bilateral posterior cerebralarteries, normal variant. There is no stenosis of the anteriorcirculation. 4. There is a 2 mm inferiorly orientated focal outpouching arisingfrom the paraophthalmic segment of the left ICA which is mostconsistent with an aneurysm. I personally reviewed the images/study and I agree with the findingsas stated. This study was interpreted at [facility], [place], [place].Electronically signed by: ROZINA MULLEN MD Normal [facility] PT/INRon 01-06-2018 INR Coag RelTime (PPP) 1.0 {INR} Normal 0.9 - 1.[address] [facility] Comment on above: Performed By: #### P TINR ####[facility] [id number] [place] [address] Prothrombin time (PT) Coag time (PPP) 11.3 s Normal 9.8 - 12.[address] [facility] Comment on above: Performed By: #### P TINR ####[facility] [id number] [place] [address] Patient Profile - Adult v2on 01-06-2018 Patient Profile - Adult v2 Profile:Initial Info:How to be Addressed Jamari Language Preferred EnglishAre you currently using the Personal Electronic Health Record or [employer] noAre you interested in learning more about [facility] for the management of yourhealth not at this timeStated Reason for Admission unable to find words and unsteady balanceArrived From homeEmployment Status retired(1)Patient Belongings remains with patientPatient Belongings Remaining with Patient jewelry; vision aids; clothingMedications Brought to Hospital noGeneral Health:Weight in kg 65.7 kilogram(s)Weight in lbs 145 pound(s)Height in feet 4 feetHeight in inches 10 inch(es)Height in cm 147.3 centimeter(s)BMI (kg/m2) 30.28 square meterWeight Method actual (measured)Scale Type bedHeight Method statedRSP Based Care:How would you like to participate in your care? keep me updatedWhat is the number one concern for you during this hospitalization? I amconcerned about my speech, unable to find wordsWhat is the most important thing we can do to support you during thishospitalization? get me home so I can take care of my husbandIs there anything we need to know to best care for you? noSubstance:Current or Former Substance Use never: Cigarette/Tobacco, Alcohol, StreetDrugsHealth Mgmt:Symptoms/Conditions Managed at Home cardiovascularCardiovascula r Symptoms/Conditions hypertensionCardiovascular Management not managedRelationship/Environ :Primary Source of Support/Comfort child(jeaneth)Lives With spouseLiving Arrangements houseResource/Environmental Concerns noneAnticipated Transition To home with help/servicesServices Anticipated at Transition rehabilitation servicesSignificant Indicators CompleteInformation Review:? Allergies, Home Meds and Significant Events have been Reviewed and Verifiedwith Patient/Family yesALLERGY, INTOLERANCE, ADVERSE EVENT: Allergies:? No Known Allergies: ActiveElectronic Signatures:Elva Lyon (RN) (Signed 06-Jan-2018 20:15) Authored: Profile, Additional InformationLast Updated: 06-Jan-2018 20:15 by Elva Lyon (LUIS)References:1. Data Referenced From Social Work Assessment 01/06/2018 4:[address] [facility] Provider Note - EDon 018 Provider Note - ED Time Seen:? Time See n 06-Jan-2018 10:03Triage Vital Signs:? Triage Information Most recent Vital Sign Value Date Temp (F): 97.5 01-06-2018 09:54 Temp (C): 36.3 01-06-2018 09:54 Heart Rate (beats/min): 60 01-06-2018 09:54 Respirations (breaths/min): 22 01-06-2018 09:54 SpO2 (%): 99 01-06-2018 09:54 BP Systolic (mm Hg): 188 01-06-2018 09:54 BP Diastolic (mm Hg): 119 01-06-2018 09:54History of Present Illness:This 72 year old Female presents with complaint(s) of confusion(1)EMS reportsthat pt family states she has been more confused with unsteady gait the pastfew days. Pt is tearful and states that she feels she cannot get her words outand just doesn't feel right. Pt moves all extremities. AOx4(1)History of Presenting Illness - Additional:? Complaint HPI: Alic[facility]rient[facility] a 72 [facility]. She reports that her symptoms beganyesterday and worsened this morning. However, she states that her daughternoted her symptoms awhile ago . She describes the symptoms by stating, Ican't get my words out. The patient confirms trouble balancing and chronicright knee pain which she attributes to the need for an additional cortisoneshot from her Orthopedist. She denies PMHx of CVA or TIA. Patient reports thather walking was unsteady this morning on the way back to her house from gettingthe mail, but she was able to make breakfast for her prior to arrivalin the ED.PSHx: Left Knee Replacement, CABGSHx: MarriedAllergy, Intolerance, Adverse Event: Allergies:? No Known Allergies: ActiveOutpatient Medication, Review/Add Medications:* Outpatient Medication Status not yet specifiedHISTORY ATTESTATION:? Attestation I have reviewed and confirmed nurse's/medic's notes forpatient'smedications, allergies, medical history, and surgical historyReview of Systems:? All Other Systems all other systems reviewed and are negative? Musculoskeletal comments Positive right knee pain? Neurological POSITIVE: gait abnormality comments Positive aphasiaVital Signs:? Objective Information T P R BP SpO2 O2(LPM) %FiO2 [id number] 12:59:00- 60 18 147/77 96 roomair, no hpwcehqwwjtbuubpsv32-Xlq-83 18 12:13:00- 64 20 175/104 95 roomair, no rrofpgtmsvaevtksvu13-Qff-42 18 10:34:00- 62 20 154/103 98 roomair, no stibrpshqqejbznlxx65-Dbz-94 18 09:54:00- 36.3 60 22 188/119 99room air, no respiratorysupportPHYSICAL EXAM:? CONSTITUTIONAL: Tearful. Well appearing, well nourished, awake, alert,oriented to person, place, time/situation.? ENMT: Airway patent, ears with clear tympanic membranes bilaterally. Nasalmucosa clear. Mouth with normal mucosa. Throat has no vesicles, nooropharyngeal exudates and uvula is midline.? EYES: Conjunctiva pink, sclera anicteric, pupils equal, round and reactive tolight.? CARDIAC: Normal rate, regular rhythm. No carotid bruits. Heart sounds S1, S2. No murmurs, rubs or gallops. PMI non-displaced? RESPIRATORY: No retractions or use of accessory muscles. Breath sounds clearand equal bilaterally.? GASTROINTESTINAL: Abdomen soft and non-distended, without tenderness, reboundor guarding. Bowel sounds normal.? GENITOURINARY: No costovertebral angle tenderness. Normal external genitalia.? MUSCULOSKELETAL: Neck non-tender, good range of motion. No cyanosis,clubbing, or edema. Normal tone and strength x 4 extremities.? NEUROLOGICAL: Aphasia. Alert and oriented, cranial nerves grossly intact,imrptl-jr-lpei intact, symmetric smile.See NIH Stroke Documentation Section for further information.? SKIN: Skin normal color for race, warm, dry and intact. No evidence of traumaor lesions.? PSYCHIATRIC: Alert and oriented to person, place, time/situation. No apparentrisk to self or others.? HEME LYMPH: No adenopathy or splenomegaly. No cervical or inguinallymphadenopathy.Lab Results:? ResultsI have reviewed these laboratory results:Complete Blood Count + Differential 06-Jan-2018 10:18:00Result ValueWhite Blood Cell Count 7.5Red Blood Cell Count 5.86 HHGB 17.8 HHCT 53.7 HMCV 92MCHC 33.1PLT 252RDW-CV 13.3Neutrophil % 71.6Immature Granulocytes % 0.4Lymphocyte % 17.4Monocyte % 7.6Eosinophil % 2.7Basophil % 0.3Neutrophil Count 5.36Lymphocyte Count 1.30Monocyte Count 0.57Eosinophil Count 0.20Basophil Count 0.02Basic Metabolic Panel 06-Jan-2018 10:18:00Result ValueGlucose, Serum 94NA 139K 3.9CL 104Bicarbonate, Serum 25Anion Gap, Serum 14BUN 11CREAT 1.01GFR-Non 54 AGFR- 65Calcium, Serum 10.6 HPT + INR, Plasma 06-Jan-2018 10:18:00Result ValueProthrombin Time, Plasma 11.3International Normalized Ratio, Plasma 1.0Troponin I, Serum 06-Jan-2018 10:18:00Result ValueTroponin I, Serum <0.02Diagnostic Imaging Results Review:Radiology Results:? ResultsImpression:No focal infiltrate or pneumothorax is identified. Xray Chest 1 View [Jan 06 2018 10:54AM]Impression:No evidence of acute cortical ischemia or intracranial hemorrhage.Chronic changes of volume loss and small vessel ischemic disease.No evidence of intracranial hemorrhage or displaced skull fracture. CT Head without Contrast [Jan 06 2018 10:47AM]Stroke Documentation:NIH Stroke Scale:? Time 09:55? NIH 1a. Level of Consciousness (0) Alert; keenly responsive? NIH 1b. LOC Questions (0) Answers both questions correctly? NIH 1c. LOC Commands (0) Performs both tasks correctly? NIH 2. Best Gaze (0) Normal? NIH 3. Visual (0) No visual loss? NIH 4. Facial Palsy (0) Normal symmetrical movements? NIH 5a. Motor Arm, Left (0) No drift; limb holds 90 (or 45) degrees secs? NIH 5b. Motor Arm, Right (0) No drift; limb holds 90 (or 45) degrees secs? NIH 6a. Motor Leg, Left (0) No drift; leg holds 30 degree position for full 5secs? NIH 6b. Motor Leg, Right (0) No drift; leg holds 30 degree position forfull5 secs? NIH 8. Sensory (0) Normal; no sensory loss? NIH 9. Best Language (1) Oxjr-yw-yipzlfus aphasia; some obvious loss offluency or facility of comprehension, w/o significant limitation on ideasexpressed or form of expression. Reduction of speech and/or comprehension,however, makes conversation about provided material difficult or impossible.?For example, in conversation about provided materials, examiner can identifypicture or naming card content from patient's response.? NIH 11. Extinction and Inattention (Formerly Neglect) (0) No abnormality? NIH Stroke Scale: Total Score 1Medical Decision Making:? Discussed Clinical and Radiological Findings With patient, family? Data Reviewed vital signs, nurses notes? Diagnosis Counseling I had a detailed discussion with the patient and/orguardian regarding the historical points, exam findings, and any diagnosticresults supporting the discharge/admit diagnosis.Diagnoses/Visit Problems:? TIA (transient ischemic attack):DISCHARGE DISPOSITION:? Disposition: admittedCONDITION ON DISPO:? Condition on Disposition stableMEDICATION RECONCILIATION/DISCHARGE MEDS:* Outpatient Medication Status not yet specifiedAttestation:CRITIC AL CARE:? Is This a Critically Ill Patient noCo-Sign/Attestation:Comme nts/ Additional Findings:Daniela Marvin am scribing for and in the presence of Dr. Soler.Electronic Signatures:Venu Soler) (Signed 06-Jan-2018 13:29) Entered: Stroke Documentation, Medical Decision Making, Attestation Authored: Time Seen / ED Notes, Triage Vital Signs, History of PresentIllness, Patient History, History Attestation, ROS, Vital Signs, Physical Exam,Lab Results Review, Diagnostic Imaging Results Review, Stroke Documentation,Medical Decision Making, ED Disposition (REQUIRED), AttestationDaniela Culp (Scribe) (Entered 06-Jan-2018 10:39) Entered: Time Seen / ED Notes, Triage Vital Signs, History of Present Illness,Patient History, History Attestation, ROS, Vital Signs, Physical Exam, LabResults Review, Diagnostic Imaging Results Review, Stroke Documentation, EDDisposition (REQUIRED), AttestationLast Updated: 06-Jan-2018 13:29 by Venu Soler)References:1. Data Referenced From Triage - ED 01/06/2018 9:[address] [facility] Risk Screen - Adult Emergenc yon 01-06-2018 Risk Screen - Adult Emergency Preferred Language:Preferred Language:? Preferred Language for Discussing Health Care (patient/designee) EnglishAdvanced Directives:? Advance Directive Medical noFamily Violence Adult:Abuse Screen:? Are you or have you been threatened or abused physically, emotionally, orsexually by anyone? no? Do you feel UNSAFE going back to the place where you are living? no? Clinical assessment: Are there any apparent signs of injuries/behaviors thatcould be related to abuse/neglect noSuicide / Depression:Suicide/Depressi on Screen:? During the past month, have you often been bothered by feeling down,depressed or hopeless? no? During the past month, have you often had little interest or pleasure indoing things? no? Have you had any thoughts of harming yourself? no (1)? Have you had any thoughts of harming anyone else? no (1)Learning Assessment (Patient):Learning Assessment (Patient):? Patient is Able to be Assessed for Learning yes? Factors Influencing Readiness to Learn acuteness of illness? Factors that Impact Ability to Learn none? Devices/Methods Used to Communicate none? Learning Preferences verbal instruction; written material? Cultural Considerations none? Developmental Considerations none? Muslim Considerations noneLearning Assessment (Other Learner):Learning Assessment (Other Learner):? Other learner available noFall Risk Adult:Falls Risk:? Altered Mobility unsteady gait? Change in Mental Status yes? Relevant Medical History / Diagnosis vertigo, unknown? Fall History none? Altered Elimination no? Medications that Might Alter: equilibrium, cognitive judgement or severity ofinjury unknown? Sensory Deficit no? UNABLE or UNWILLING to Follow Directions no? Patient Identified as a Falls Risk yesPressure Injury:Pressure Injury Present on Admission noRespiratory / Cough /TB:ED / TB / Cough / Respiratory Screen:? Do you have a cough? noSmoking/Social History (Required age 13 or older):Smoking Status: never smokerAdmission Risk Screen:? Significant Indicators CompleteCAGE:CAGE:Is this an injured patient at a Trauma Center ([facility] / [facility]): noElectronic Signatures:Nancy Zapata (HALIE) (Signed 06-Jan-2018 11:31) Authored: Preferred Language, Advanced Directives, Family Violence Adult,Suicide / Depression, Learning Assessment (Patient), Learning Assessment (OtherLearner), Fall Risk Adult, Pressure Injury, Respiratory / Cough /TB,Smoking/Social History (Required age 13 or older), CAGELast Updated: 06-Jan-2018 11:31 by Nancy Zapata (HALIE)References:1. Data Referenced From Triage - ED 01/06/2018 9:[address] [facility] TROPONIN Ion 01-06-2018 Troponin I.cardiac mass conc ng/mL Normal 0.00 - 0.[address] [facility] Comment on above: Result Comment: LESS THAN 0.04 NG/ML: NEGATIVEREPEAT TESTING IN FOUR TO SIX HOURSIF CLINICALLY INDICATED.0.04 - 0.5 NG/ML: CONSISTENT WITH POSSIBLECARDIAC DAMAGE AND POSSIBLE INCREASEDCLINICAL RISK.SERIAL MEASUREMENTS MAY HELP ASSESS EXTENT OFMYOCARDIAL DAMAGE.>0.5 NG/ML: CONSISTENT WITH CARDIAC DAMAGE,INCREASED CLINICAL RISK AND MYOCARDIALINFARCTION. SERIAL MEASUREMENTS MAY HELPASSESS EXTENT OF MYOCARDIAL DAMAGE..Note: [facility]roponin [facility] Direct result comparisons should onlybe made within the same method. Performed By: #### T ROP2 ####[facility] [id number] [place] [address] Triage - EDon 01-06-2018 Triage - ED Chart Review:CHIEF COMPLAINTSHILUIS F BARRIENTOS is a Female patient with a chief complaint of confusion.Onset of the Complaint: [id number] Complaints: EMS reports that pt family states she has been more confusedwith unsteady gait the past few days. Pt is tearful and states that she feelsshe cannot get her words out and just doesn't feel right. Pt moves allextremities. [id number] Date/Time: 06-Jan-2018 09:54Vital Signs:Temperature: 97.5F ( 36.3C) taken tympanicBlood Pressure: 188/119 Mean:Heart Rate: 60Respiratory Rate: 22Pulse Oximetry: 99% on room air, no respiratory support. Height: 4 feet 10.00inches. 147.3 CMWeight: 165.0 pounds. Calculated 74.8 kg. (stated)Calculated BMI (kg/m2): 34.474 Calculated BSA (m2) 1.75Cough lasting greater than 3 weeks: noTravel outside of [place]: Mendyergies: noPatient has suicidal thoughts: noPatient has homicidal thoughts: noESI: 2Last Known Well: unknownPAINPain Scale Used: WILDAPast Medical History:? Past Medical History Reviewed noElectronic Signatures:Nancy Zapata (HALIE) (Signed 06-Jan-2018 09:57) Authored: Triage, Past Medical HistoryLast Updated: 06-Jan-2018 09:57 by Nancy Zapata (HALIE) Normal [facility] Vital Signs Date Time Vital Sign Value Performing Clinician Facility 01-07-2024 05:30-0400 SaO2% (BldA) [Mass fraction] 100 % JENNYFER GUZMAN [facility] Comment on above: Performed By: #### BMP #### [facility] ([id number]) [address] [place] [address], [address] [place] [address] 01-02-2024 14:00-0500 Hourly Rounding [facility] 01-02-2024 14:00-0500 Promise to Return [facility] 01-02-2024 01:00-0500 Body temperature 97.88 [degF] [facility] 01-02-2024 01:00-0500 Diastolic blood pressure 82 mm[Hg] [facility] 01-02-2024 01:00-0500 Heart rate 53 /min [facility] 01-02-2024 01:00-0500 Hourly Rounding [facility] 01-02-2024 01:00-0500 Mean blood pressure 97 mm[Hg] [facility] 01-02-2024 01:00-0500 Promise to Return [facility] 01-02-2024 01:00-0500 SaO2% (BldA) [Mass fraction] 100 % [facility] 01-02-2024 00:00-0500 [facility] 01-02-2024 00:00-0500 [facility] 01-01-2024 19:30-0500 Diastolic blood pressure 69 mm[Hg] [facility] 01-01-2024 19:30-0500 Heart rate 60 /min [facility] 01-01-2024 19:30-0500 Mean blood pressure 88 mm[Hg] mehul [facility] 01-01-2024 19:30-0500 Respiratory rate 16 /min [facility] 01-01-2024 19:30-0500 Systolic blood pressure 126 mm[Hg] [facility] 01-01-2024 19:29-0500 Diastolic blood pressure 77 mm[Hg] mehul [facility] 01-01-2024 19:29-0500 Heart rate 62 /min [facility] 01-01-2024 19:29-0500 Mean blood pressure 101 mm[Hg] [facility] 01-01-2024 19:29-0500 Systolic blood pressure 149 mm[Hg] [facility] 01-01-2024 19:27-0500 Heart rate 48 /min [facility] 01-01-2024 16:19-0500 Heart rate 62 /min [facility] 01-01-2024 16:19-0500 SaO2% (BldA) [Mass fraction] 97 % [facility] 01-01-2024 16:15-0500 Mean blood pressure 101 mm[Hg] [facility] 01-01-2024 16:12-0500 Body temperature 98.06 [degF] [facility] 01-01-2024 12:29-0500 SaO2% (BldA) [Mass fraction] 97 % [facility] 01-01-2024 11:59-0500 Heart rate 48 /min [facility] 01-01-2024 11:58-0500 Mean blood pressure 84 mm[Hg] [facility] 01-01-2024 11:57-0500 Body temperature 97.7 [degF] [facility] 01-01-2024 11:42-0500 Blood Pressure Location [facility] 01-01-2024 10:14-0500 Respiratory rate 12 /min [facility] 01-01-2024 09:33-0500 Respiratory rate 14 /min [facility] 01-01-2024 07:33-0500 Respiratory rate 26 /min [facility] 01-01-2024 07:11-0500 gluc 64 mg/dL [facility] 11-11-2023 18:34-0500 Blood Pressure Location Amarilis TORRES [facility] 11-11-2023 18:34-0500 Body temperature 98.42 [degF] Amarilis TORRES [facility] 11-11-2023 18:34-0500 Diastolic blood pressure 70 mm[Hg] Amarilis TORRES [facility] 11-11-2023 18:34-0500 Heart rate 65 /min Amarilis TORRES [facility] 11-11-2023 18:34-0500 Respiratory rate 16 /min Amarilis TORRES [facility] 11-11-2023 18:34-0500 SaO2% (BldA) [Mass fraction] 93 % Christopher BROWN [facility] 11-11-2023 18:34-0500 Systolic blood pressure 120 mm[Hg] Christopher BROWN [facility] 05-13-2023 19:06-0400 Diastolic blood pressure 82 mm[Hg] Christopher BROWN [facility] 05-13-2023 19:06-0400 Mean blood pressure 101 mm[Hg] Christopher BROWN [facility] 05-13-2023 19:06-0400 Systolic blood pressure 138 mm[Hg] Christopher BROWN [facility] 05-13-2023 18:49-0400 Blood Pressure Location Christopher BROWN [facility] 05-13-2023 18:49-0400 Diastolic blood pressure 80 mm[Hg] Christopher BROWN [facility] 05-13-2023 18:49-0400 Heart rate 52 /min Christopher BROWN [facility] 05-13-2023 18:49-0400 Respiratory rate 16 /min Christopher BROWN [facility] 05-13-2023 18:49-0400 SaO2% (BldA) [Mass fraction] 95 % Christopher BROWN [facility] 05-13-2023 18:49-0400 Systolic blood pressure 140 mm[Hg] Christopher BROWN [facility] 11-12-2022 18:14-0500 Blood Pressure Location Christopher BROWN [facility] 11-12-2022 18:14-0500 Diastolic blood pressure 80 mm[Hg] Christopher BROWN [facility] 11-12-2022 18:14-0500 Heart rate 65 /min Christopher BROWN [facility] 11-12-2022 18:14-0500 Respiratory rate 16 /min Christopher BROWN [facility] 11-12-2022 18:14-0500 SaO2% (BldA) [Mass fraction] 97 % Christopher BROWN [facility] 11-12-2022 18:14-0500 Systolic blood pressure 136 mm[Hg] Christopher BROWN [facility] 05-10-2022 16:24-0400 Blood Pressure Location Christrandyer BROWN [facility] 05-10-2022 16:24-0400 Body temperature 97.16 [degF] Christrandyer BROWN [facility] [place] 05-10-2022 16:24-0400 Diastolic blood pressure 60 mm[Hg] Christopher BROWN [facility] [place] 05-10-2022 16:24-0400 Heart rate 54 /min Christopher BROWN [facility] 05-10-2022 16:24-0400 SaO2% (BldA) [Mass fraction] 95 % Christopher BROWN [facility] 05-10-2022 16:24-0400 Systolic blood pressure 120 mm[Hg] Thongdimitris BRIAN [facility] Encounters Encounter Date Encounter Type Care Provider Facility Start: 04-06-2024 End: 04-06-2024 ambulatory AMARILIS KEITH Not Available Start: 03-04-2024 End: 03-04-2024 ambulatory [facility] Start: 01-29-2024 ambulatory Amarilis TORRES Facil ity:[facility] Start: 01-26-2024 Evaluation and manag ement of inpatient CELESTINO COTTO [facility] Start: 01-23-2024 Telephone encounter [facility] Start: 01-20-2024 End: 01-20-2024 ambulatory [facility] Start: 01-19-2024 End: 02-12-2024 Evaluation and management of inpatient KEVIN LOPEZ [facility] Start: 01-13-2024 Telephone encounter [facility] Comment on above: Hospital Follow-up Start: 01-05-2024 Orders Only Candis Velázquez RN [facility] Start: 01-02-2024 Encounter for preprocedural cardiovascular examination [facility] Start: 01-02-2024 End: 01-19-2024 Evaluation and management of inpatient [facility] Start: 01-02-2024 ambulatory [facility] Start: 01-02-2024 ambulatory [facility] Start: 01-01-2024 End: 01-02-2024 Evaluation and management of inpatient Christiano Castillo Facility:[facility] Start: 01-01-2024 End: 01-02-2024 Evaluation and management of inpatient Daniel Brown [facility] Start: 12-31-2023 End: 12-31-2023 ambulatory ROZINA D DOLCE Not Available Start: 12-22-2023 End: 12-22-2023 ambulatory Thongdimitris TORRES Facility:[facility] Start: 12-01-2023 End: 03-30-2024 [facility] Start: 12-01-2023 End: 03-30-2024 Coordination of care plan Amarilis TORRES [facility] Start: 11-17-2023 [facility]ulatory [facility] Start: 11-15-2023 End: 11-15-2023 Emergency department patient visit Benjamín Ibanez Facility:[facility] Start: 11-12-2023 End: 11-12-2023 ambulatory Thongdimitris TORRES Facility:[facility] Start: 11-12-2023 End: 11-12-2023 Lab Drop [facility] Start: 11-11-2023 End: 11-11-2023 Lab Drop off Amarilis TORRES [facility] Start: 11-11-2023 End: 11-11-2023 [facility]ulatory [facility] Start: 11-11-2023 End: 11-11-2023 Patient encounter [facility] Start: 10-15-2023 End: 10-15-2023 ambulatory ROZINA BETTENCOURT Not Available Start: 10-10-2023 End: 10-10-2023 [facility]ulatory [facility] Start: 06-13-2023 ambulatory Thongdimitris TORRES Facil ity: [place] Start: 05-13-2023 End: 05-13-2023 ambulatory Thongdimitris TORRES Facility:[facility] Start: 05-13-2023 End: 05-13-2023 Patient encounter procedure Thongdimitris BRIAN [facility] Start: 11-30-2022 End: 11-30-2022 Patient encounter procedure Amarilis TORRES [facility] Start: 11-12-2022 End: 11-12-2022 Patient encounter procedure Amarilis TORRES [facility] [place] Start: 05-22-2022 End: 05-22-2022 Patient encounter procedure Amarilis TORRES [facility] Start: 05-18-2022 End: 05-18-2022 Patient encounter procedure Amarilis TORRES [facility] Start: 05-10-2022 End: 05-10-2022 Patient encounter procedure Amarilis TORRES [facility] [place] Start: 01-09-2018 End: 01-22-2018 Ambulatory EARL STAPLETON Facility:[id number] Start: 01-06-2018 End: 01-09-2018 Evaluation and management of inpatient PCP UNKNOWN Facility:[facility] Procedures Date Procedure Procedure Detail Performing Clinician Start: 01-02-2024 Adult depression screening assessment Candis Velázquez RN Start: 11-07-2009 Partial resection of colon Thongdimitris BRIAN Comment on above: approx date, details not available Choley 1 Thongrandyashanti CARLISLE Comment on above: 1989 Choley 2 Amarilis CARLISLE Comment on above: 1989 double bypass 2 Amarilis TORRES Comment on above: double bypass 3 Thongdimitris BRIAN Comment on above: 1998- [facility] Left total knee 3 Michel TORRES Comment on above: 2016 Left total knee 4 Michel TORRES Comment on above: 2016 Total hyst 4 Amarilis REICH WN Comment on above: 1988 Total hyst 5 Amarilis REICH WN Comment on above: 1988 Plan of Treatment Date Care Activity Detail Author Start: 05-13-2033 DTaP,Tdap and Td Vaccines (2 - Td or Tdap) DTaP,Tdap and Td Vaccines (2 - Td or Tdap) [facility] Start: 01-18-2025 Adult BMI Screening Adult BMI Screening [facility] Start: 01-12-2025 Adult BMI Screening Adult BMI Screening [facility] Start: 01-04-2025 Adult BMI Screening Adult BMI Screening [facility] Start: 01-04-2025 Tobacco Screening Tobacco Screening [facility] Start: 01-01-2025 Depression Screening Depression Screening [facility] Start: 06-21-2024 ambulatory Ambulatory Facility:[facility] Start: 02-26-2024 End: 02-26-2024 Patient encounter procedure 02/26/2024 3:00 PM EDT Office Visit [facility] [address] [place] [address] [phone] Comfort Andujar MD [address] [place] [address], [address], [address], [address] [place] [address] [facility] Start: 02-10-2024 End: 02-10-2024 Patient encounter procedure 02/10/2024 3:30 PM EDT Office Visit [facility] [address] [place] [phone] Teena Bryson PA-C [address] [place] [address] [address] [place] [address] [facility] Start: 02-02-2024 End: 02-02-2024 Patient encounter procedure 02/02/2024 11:00 AM EDT Office Visit [facility] [address] [place] [address] [place] [address] Pippa Copeland, [employer]LL [employer]GE STITCHER [employer] M[employer] 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 [address] ALEJANDRE, [address] [address] [facility] Start: 06-27-2023 COVID-19 Vaccine ( season) COVID-19 Vaccine () [facility] Start: 2009 Fall Risk Screening Fall Risk Screening [facility] Start: 1994 Administration of varicella zoster vaccine Zoster (Shingles) Vaccine (1 of 2) [facility] Start: 1944 Medicare Annual Wellness Visit Medicare Annual Wellness Visit [facility] Immunizations Immunization Date Immunization Notes Care Provider Fa cility 09-01-2023 influenza virus vacc ine, unspecified formulation Amarilis TORRES [facility] 05-13-2023 tetanus toxoid, redu enio diphtheria toxoid, and acellular pertussis vaccine, adsorbed Amarilis TORRES [facility] 09-07-2022 influenza virus vacc ine, unspecified formulation Amarilis TORRES [facility] 09-07-2022 SARS-CoV-2 (COVID-19 ) [id number] Amarilis TORRES [facility] 09-18-2021 influenza virus vacc ine, unspecified formulation Amarilis TORRES [facility] 09-18-2021 SARS-CoV-2 (COVID-19 ) mRNA BNT-162b2 vax Amarilis TORRES [facility] 02-01-2021 pneumococcal polysaccharide vaccine, 23 valent Amarilis TORRES [facility] [place] Comment on above: Early/Late Reason: E raquel/Late Reason: Other : re- entered 12-23-2020 SARS-CoV-2 (COVID-19 ) mRNA BNT-162b2 vax Amarilis TORRES [facility] [place] Comment on above: Result Comment: gvn @ [facility] 12-02-2020 SARS-CoV-2 (COVID-19 ) mRNA BNT-162b2 vax Amarilis TORRES [facility] [place] Comment on above: Result Comment: 2nd dose received , noted on [employer] 09-19-2020 influenza, high dose seasonal, preservative-free Amarilis TORRES [facility] [place] 08-23-2019 influenza, high dose seasonal, preservative-free Amarilis TORRES [facility] [place] 08-21-2018 influenza virus vacc ine, unspecified formulation Amarilis TORRES [facility] [place] 08-21-2018 pneumococcal conjuga te vaccine, 13 valent Amarilis TORRSE [facility] [place] Payers Date Payer Category Payer Medicare [employer] MED[employer] UHC MEDICARE ADVANTAGE PPO [id number] 2023-Present [phone] [address] [address] [place] [address] [id number] 2023 Private Health Insurance [id number] 2022 Medicare [id number] 1944 Unknown [id number] 2.16.840.1.731544.3.579 .2.1286 1944 Unknown [id number] 2.16.840.1.975182.3.579 .2.128 1944 Unknown [id number] 2.16.840.1.442424.3.579 .2.128 1944 Unknown [id number] 2.16.840.1.876969.3.579 .2.128 1944 Unknown [id number] 2.16.840.1.552600.3.579 .2.128 1944 Unknown [id number] 2.16.840.1.146439.3.579 .2.128 1944 Unknown [id number] 2.16.840.1.267315.3.579 .2.128 1944 Unknown [id number] 2.16.840.1.160446.3.579 .2.128 1944 Unknown [id number] 2.16.840.1.983701.3.579 .2.128 1944 Unknown [id number] 2.16.840.1.579330.3.579 .2.182 1944 Unknown [id number] 2.16.840.1.688995.3.579 .2.182 1944 Unknown [id number] 2.16.840.1.076827.3.579 .2.727 1944 Unknown [id number] 2.16.840.1.593354.3.579 .2.727 1944 Unknown [id number] 2.16.840.1.745065.3.579 .2.727 1944 Unknown [id number] 2.16.840.1.349041.3.579 .2.727 1944 Unknown [id number] 2.16.840.1.246071.3.579 .2.727 1944 Unknown [id number] 2.16.840.1.959765.3.579 .2.727 1944 Unknown [id number] 2.16.840.1.640101.3.579 .2.727 1944 Unknown [id number] 2.16.840.1.685823.3.579 .2.727 1944 Unknown [id number] 2.16.840.1.806836.3.579 .2.727 1944 Unknown [id number] 2.16.840.1.840989.3.579 .2.727 1944 Unknown [id number] 2.16.840.1.180811.3.579 .2.727 1944 Unknown [id number] 2.16.840.1.093792.3.579 .2.727 1944 Unknown [id number] 2.16.840.1.584056.3.579 .2.1259 1944 Unknown [id number] 2.16.840.1.592467.3.579 .2.1259 1944 Unknown [id number] 2.16.840.1.670413.3.579 .2.1259 Private Health Insurance [id number] Unknown [id number] Social History Date Type Detail Facility Start: 11-06-2021 End: 12-22-2023 Tobacco smoking status Never smoked tobacco (finding) [facility] Comment on above: denies Tobacco smoking status Never [facility] [place] Comment on above: denies Start: 01-02-2024 End: 01-05-2024 Sex Assigned At Female [facility] Start: 01-02-2024 Tobacco use and exposure Smokeless tobacco non-user [facility] Re[facility] Start: 01-05-2024 End: 01-06-2024 Alcohol intake Lifetime non-drinker (finding) [email or web address] Start: 01-02-2024 End: 01-05-2024 History of Social function [facility] Re[facility] Has the tracx, or Just around Us threatened to shut off services in your home in past 12Mo No [facility] How often to you hav e a drink containing alcohol? Never [facility] Re[facility] Start: 1945 Sex Assigned At Not on file P [id number] [facility] Medical Equipment Procedure Code Equipment Code Equipment Original Text Equipment Identifier Dates Patch Cv 8x.8cm N-Pyrg Tpr End Photofix Decellularized Bvn Rpl [id number] - [id number] Start: 01-05-2024 Goals Date Patient Goal Desired Activity /State Personal health goal Comment on above: Formatting of this n ote might be different from the original. Evaluation of progress towards goal: to discharge safely back home with her daughter and son in law. Functional Status Date Assessment Result Facility 01-01-2024 Functional Status N/A [facility] 01-01-2024 Functional Status [facility] 11-11-2023 Functional Status N/A [facility] 05-13-2023 Functional Status N/A [facility] 11-12-2022 Functional Status N/A [facility] Clinical Notes 04-28-2022 to 03-04-2024 Telephone Encounter - Deisi Alcala [facility] - 01/23/2024 8:52 AM EDTTelephone Encounter - Deisi Alcala [facility] - 01/23/2024 8:52 AM EDTTelephone Encounter - Maryanne Barajas - 01/13/2024 7:56 AM EDT Note Date & Type Note Facility 03-04-2024 Note New patient here to establish care. Ref from Dr. Ann for CVA. She has hx of CABG in 1998, PCI to the ramus, carotid artery stenosis s/p CEA in December 2023. She was recently admitted to [facility] in [place] and consulted by cardiology for bradycardia and possible 2nd degree AV block. Patient is nonverbal and is here today with son in law. She denies chest pain and SOB. Current medication list from senior living does not show she is taking aspirin, Brilinta, or statin. She was diagnosed with subarachnoid hemorrhage in [facility] ED on 02/17. Review of Systems Reason unable to perform ROS: able to tell me yes or no. Cardiovascular: Positive for leg swelling (minimal). Musculoskeletal: Positive for myalgias. Neurological: Positive for paresthesias. All other systems reviewed and are negative. [facility] 03-04-2024 Note [facility] Note Reason for cardiology consult: Bradycardia Chief Complaint: No complaints HPI: Alicia Barrientos is a 78 y.o. female with past medical history of coronary artery disease, s/p CABG in 1991, she underwent PTCA of ramus intermedius 2014 using bare-metal stent, she had a prior strokes and the last 1 left however with imbalanced gait that she used to use a walker, she had recent stroke on 01/01/2024 of which she recovered rather quickly but she was found to have significant left carotid internal artery stenosis and she underwent left carotid endarterectomy on 01/05/[address] [facility], which was complicated by severe right-sided weakness, aphasia and dysphagia postsurgery. 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 Cotto no high-grade AV block or pauses were noted therefore medical management with avoidance of AV lovely blockers was recommended , she also has history of hypertension, hyperlipidemia, diverticulitis s/p lap colectomy of the sigmoid colon with colorectal anastomosis, history of chronic kidney disease, hypothyroidism, anxiety and depression The patient was discharged to a senior living [place]. On 02/18/2024 she was brought to the [facility] emergency room after she fell and she was found to have subarachnoid hemorrhoid. She refused to go to [place], she signed DNR papers, aspirin and Brilinta were discontinued. Of note her vital signs in the emergency room are stable with pulse of 62, respiratory rate 18 and blood pressure 126/65. I also reviewed her vital signs in the senior living and they have been stable with a heart rate between 51 and 77 and her blood pressure in the 110s to 120s over 60-80 and O2 saturation has been above 94% in room air. She is here today to establish cardiac care locally. Her son in law is with her. She states that she has been improving and engaging better with physical therapy and with the senior living personnel over the last couple weeks. She needs two-person assistance to get up and walk around. She has some movement in her right arm but the right leg is very weak. She is able to eat without aspiration. She can speak in 3-4 word sentences per his report. She denies chest pain or shortness of breath at rest or with activities. The son-in-law confirms that no reported such symptoms. No orthopnea or paroxysmal nocturnal dyspnea. He states that she had imbalance and dizziness since her first stroke about 6 years ago. She denies palpitation. She has been having right lower extremity edema because she cannot move it much. Patient denies smoking, alcohol or illicit drugs. Cardiology ROS: GENERAL: Denies fever, chills, night sweats, weight loss. HEENT: Denies changes in vision, photophobia, changes in hearing, epistaxis, oral bleeding. CARDIOVASCULAR: Denies chest pain, exertional dyspnea, orthopnea/PND, lower extremity edema, palpitations, lightheadedness/dizziness. RESPIRATORY: Denies SOB, coughing, wheezing GI: Denies abdominal pain, nausea/vomiting, heartburn, melena/hematochezia. RENAL: Denies dysuria, hematuria, flank pain. MSK: Denies muscle weakness/pain, arthralgias/joint pain. NEUROLOGIC: Denies LOC, and right-sided weakness more so over the right leg than the right arm, she has expressive aphasia. SKIN: Denies abnormal rashes or bleeding. PSYCH: Denies significant anxiety, depression, sleep disturbances. Past Medical History She has a past medical history of Carotid artery stenosis, Coronary artery disease, Hyperlipidemia, Hypertension, and Stroke ([facility]). Surgical History She has a past surgical history that includes Coronary artery bypass graft; Coronary stent placement; Cardiac catheterization; and Carotid endarterectomy. Social History She has no history on file for tobacco use, alcohol use, and drug use. Family History No family history on file. Allergies Patient has no allergy information on record. Medications No current outpatient medications on file. Last Recorded Vitals There were no vitals taken for this visit. Physical Examination: GENERAL: alert and oriented x3, well developed, in no acute distress. HEAD: atraumatic, normocephalic. EYES: INOCENCIO, EOMI. NECK: trachea midline, no JVD present, no carotid bruits present. CARDIAC: S1, S2 present. RRR. No murmur, rubs, or gallops. RESPIRATORY: CTAB, no increased effort of breathing, no rales, rhonchi, or wheezing. ABDOMEN: soft, nontender, nondistended. EXTREMITIES: no lower extremity edema, peripheral pulses are 2+ bilaterally. No rash/skin discoloration present. NEURO: She is alert, it is hard to evaluate orientation due to aphasia, she has expressive aphasia how (more content not included)... [facility] 01-23-2024 Miscellaneous Notes Phoned and spoke with patient's daughter in regards to scheduling a follow up from most recent hospital stay and per daughter patient was taken from [facility] to [facility] and once patient is discharged from [facility] will most likely go to a senior living. Per daughter is unsure whether or not the follow up will be needed and will call if it is. documented in this encounter [facility] 01-23-2024 Telephone encounter Note Phoned and spoke with patient's daughter in regards to scheduling a follow up from most recent hospital stay and per daughter patient was taken from [facility] to [facility] and once patient is discharged from [facility] will most likely go to a senior living. Per daughter is unsure whether or not the follow up will be needed and will call if it is. [facility] 01-13-2024 Miscellaneous Notes Message from the 01/12/24 discharge list per RRK. He signed off patient care from [facility] Carotid Endarterectomy Post op watershed CVA Sinus Bradycardia ASCVD with prior CABG Preserved LV Fxn Patient to f/u in 1 to 2 weeks post d/c bvb PT IS STILL ADMITTED documented in this encounter [facility] 01-13-2024 Telephone encounter Note Message from the 01/12/24 discharge list per RRK. He signed off patient care from [facility] Carotid Endarterectomy Post op watershed CVA Sinus Bradycardia ASCVD with prior CABG Preserved LV Fxn Patient to f/u in 1 to 2 weeks post d/c bvb [facility] 01-13-2024 Telephone encounter Note PT IS STILL ADMITTED [facility] 01-12-2024 Note Admission and Discha rge Information Admit Date/Time:01/01/2024 09:48 Admitting Physician - Kevin TAMEZ, Daniel Consulting Physician - Christiano Castillo MD Admitting Diagnoses: Discharge Order Date Discharge Patient - Ordered -- 01/01/24 14:00:00 EST, transferred to tertiary care center, pending bed assignment Discharge Diagnoses 1. Acute CVA (cerebrovascular accident), 01/01/2024 2. Carotid artery stenosis with cerebral infarction, 01/01/2024 Accidental fall, 01/01/2024 Fall, 01/01/2024 Right sided weakness, 01/01/2024 Shoulder pain-swelling, 01/01/2024 Trauma - minor, 01/01/2024 Procedure History Partial resection of colon (11/07/2009), Choley, double bypass, Left total knee, Total hyst. Hospital Course This is a 78-year-old female with a history significant for prior CVA approximately 6 years ago, hypertension, hyperlipidemia that presented to the emergency department after a fall. She did not strike her head or have LOC. She was attempting to get out of bed and was able to stand. There is some weakness observed to the right side. She did report associated mental fogginess as well as difficulty with her speech, although this is chronic from her prior CVA. She does take a daily aspirin but did not take her dose this morning. CT brain completed in ED. Plan for MRI/MRA brain and neck as well as further CVA protocol orders. MRA of neck without contrast demonstrates probable nearly occlusive high-grade proximal left internal carotid artery stenosis. These results were called to this provider at 01/01/24 at 1205 pm. 1215: Patient and family made aware of MRA results and the plan to call tertiary facilities for transfer and more definitive care. They are agreeable to this plan. [facility] initially called for assistance and it was mentioned that the majority of the neuro services are provided by [facility]. 1239- Call placed to [facility] for transfer of neurologic care. Spoke with Dr. Chicas with neuro intervention. He would like to evaluate her MRI scans to determine plan of action and we will reconference. 1355- Did reconference with Dr. Chicas at [facility]. He has accepted her to neuro step down. We are pending a bed assignment. They would like to complete intervention tomorrow if possible. Plan to hold all antihypertensives, dose with 300 mg of one time dose of plavix as well as continue with daily asa. Once bed assignment is obtained, she will be transferred for further definitive care. Significant Findings (01/01/2024 11:23 EST MRA Neck w/o Contrast) Reason For Exam CVA POWERSCRIBE REPORT IMPRESSION: PROBABLE NEARLY OCCLUSIVE HIGH-GRADE PROXIMAL LEFT INTERNAL CAROTID ARTERY STENOSIS. 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 Critical communication: Flor Johnson [facility]- was notified at approximately 12:05 PM on 01/01/2024. EXAM: MRA Neck w/o Contrast DATE: 01/01/2024 10:22 AM CLINICAL HISTORY: CVA. COMPARISON: None available. TECHNIQUE: 2D and 3D [id number] MRA of the neck arterial circulation was performed. Routine and volume rendered images were obtained on a three-dimensional workstation. Narrowings are estimated by NASCET criteria. FINDINGS: There is near signal loss of the proximal left internal carotid artery, most likely a probable nearly occlusive high-grade stenosis. There is no other significant stenosis identified in the neck. A very small caliber right vertebral artery is probably developmental variation. The patent left vertebral artery approximately 2 to 3 mm in caliber in the neck. Ordering Provider: Flor Johnson [facility] FINAL REPORT Dictated: 01/01/2024 12:06 pm Elio Alexis MD Signed (Electronic Signature): 01/01/2024 12:06 pm Signed by: Elio Alexis MD Transcribed by: TREVON Technologist: JOSE, [1] Physical Exam General: alert, no acute distress Skin: warm, dry Head: no trauma, normocephalic Neck: Trachea midline, no adenopathy, no tenderness Eye: normal conjunctiva, sclera clear ENMT: TM's clear, oral mucosa moist, no pharyngeal erythema or exudate. Pupils 2 mm and briskly react Cardiovascular: regular rate and rhythm, normal peripheral perfusion Respiratory: Lungs CTA, respirations non labored Chest wall: no deformity. Gastrointestinal: soft, non distended, no tenderness, no guarding. Back: No tenderness, Normal ROM, Normal alignment. Extremities: no deformity, no trauma Neurological: oriented x 4, LOC appropriate for age, CN II-XII intact, motor strength decreased on right, sensation decreased on right, speech aphasic mild (not new finding for her) Psychiatric: cooperative, affect appropriate for age, normal judgement, normal psychiatric thoughts. Tests Performed Cervical Spine CT w/o Contrast CT Head or Brain w/o Contrast MRA Head w/o Contrast MRA Neck w/o Contrast MRI B (more content not included)... [facility] Comment on above: Result Comment: Elec tronically Signed By: Flor Poole\.br\Date and Time Signed: 01/11/24 11:29 EDT\.br\Electronically Co-Signed By: Daniel Brown MD\.br\Date and Time Co-Signed: 01/12/24 07:34 EDT 01-02-2024 Note 1355- Did reconferen ce with Dr. Chicas at [facility]. He has accepted her to neuro step down. We are pending a bed assignment. They would like to complete intervention tomorrow if possible. Plan to hold all antihypertensives, dose with 300 mg of one time dose of plavix as well as continue with daily asa. [facility] Comment on above: Result Comment: Elec tronically Signed By: Flor Poole\.br\Date and Time Signed: 01/01/24 14:00 EST\.br\Electronically Co-Signed By: Kevin TAMEZ, Daniel\.br\Date and Time Co-Signed: 01/02/24 22:26 EST 01-02-2024 Hospital Discharg e instructions Patient Education 01/02/2024 13:11:34 Core Measures: Stroke (Cerebrovascular Accident) [facility] [place] Stroke (Cerebrovascular Accident) A stroke is acute of brain tissue, and it is a neurologic emergency. A stroke can cause permanent loss of function of the central nervous system (brain). If the symptoms of a stroke end without complications in 24 hours, it is diagnosed as a transient ischemic attack (TIA). If the symptoms are not resolved within 24 hours, it is defined as a stroke. CAUSES A stroke is caused by a decrease of oxygen supply to an area of your brain. It is usually the result of a small blood clot or hardening of the arteries. Blockages in, or damage to, the carotid arteries leading to the brain can also cause a stroke. Bleeding in the brain can cause, or accompany, a stroke. SYMPTOMS These symptoms usually develop suddenly (or may be newly present upon awakening from sleep): Loss of vision. Double vision. Confusion. Numbness or weakness on one side of the face or body. Inability to speak (aphasia). DIAGNOSIS Your caregiver can often determine the presence or absence of a stroke based on your symptoms, history, and examination. A CT scan of the brain is usually performed to confirm the stroke, look for causes, and determine the severity. Other tests may be done to find the cause of the stroke, including: An EKG and heart monitoring. An echocardiogram (ultrasound evaluation of the heart). An ultrasound evaluation of your carotid arteries. Determination of blood oxygen level and blood tests. PREVENTION The likelihood of a stroke can be decreased by appropriate treatment of high blood pressure, high cholesterol, diabetes, and by stopping smoking. RISK FACTORS: If you have been told by your doctor or nurse practitioner that you have any of the following risk factors for stroke, work with your health respiratory care technician to control them. High Blood Pressure: High blood pressure is one of the main causes of stroke. It is the most important risk factor to control. Take your blood pressure medication, lose weight, increase your activity, and limit your salt intake to help control your blood pressure.Take your your blood pressure and write it down and then take them to your next doctor's appointment. Smoking: If you smoke: QUIT! We can help. Please call [facility] at [phone] ([facility] [place] or [phone], ext. [phone] Diabetes: Work with your healthcare professional to keep your blood sugar under control. Check your blood sugar and take the results to your next doctor's visit. Take your medications as directed. Eating a healthy diet and exercising will also help keep your diabetes under control. For information on [facility] please call, . Carotid or other Artery Diseases: The carotid arteries in your neck carry blood to the brain. A stroke can be caused by a blood clot blocking an artery that has been damaged by a fatty buildup inside the artery wall. Discuss ways to manage this with your health care provider. Atrial Fibrillation (A Fib): In A fib, your heart does not have a normal beat. This may allow clots to form and puts you at a greater risk for having a stroke. Work with your health care provider to control your A fib. Your doctor may order special medication that helps prevent clots from forming. High blood cholesterol or high blood fats: High cholesterol increases your risk of stroke. Exercise regularly, but talk to your health care provider first. A diet low in fat and cholesterol can help. If you have any questions about a low fat, low cholesterol diet, you can call our [facility] driver's license examiner at [phone] Ext. [phone]. The goal for total cholesterol is less than 200, and for LDL or the bad cholesterol is less than 100. Lifestyle Management: You increase your risk of stroke if you are overweight or obese, are not very active, or drink too much alcohol. Enjoy a diet rich in fruits and vegetables. Exercise regularly and drink alcohol in moderation or no more than two drinks a day for men and no more than one drink a day for non- women, or don't drink at all. This will help decrease your risk of stroke. Oral Contraceptives: Taking control pills or the pill can be a risk factor for stroke especially if you smoke. Discuss using the oral contraceptives and your risk of stroke with your health respiratory care technician. TREATMENT TIME IS OF THE ESSENCE! Medications to dissolve a blood clot can only be used within four and a half hours of the onset of symptoms. After that time, treatment of stroke depends on duration of symptoms, severity, and cause. Medications and diet measures may be used to address diabetes, high blood pressure, and other risk factors. Physical therapy, speech therapy, and occupational therapy specialists will assess you and work to improve any functions impaired by the stroke. Measures will be taken to prevent short and shelter complications, including aspiration pneumonia, blood clots in the legs, bedsores, and falls. HOME CARE INSTRUCTIONS Care at home after a stroke can be complicated. Medications Blood thinners may be used to prevent another stroke. Blood thinners need to be used exactly as instructed. Medicines may also be used to control risk factors for a stroke. Be sure you understand all your medication instructions. It is very important to not run out of your medicine. Get more while you still have a one-week supply. Do not stop taking your medicine without speaking to your healthcare professional. Take all of your medications or an updated list of your medications to all of your doctor's appointments. Physical, occupational, and speech therapy Ongoing therapy is often necessary to maximize recovery after a stroke. If you have been advised to use a walker or a cane, use it at all times. Be sure you keep your therapy appointments. Diet Certain diets may be prescribed to address high blood pressure, high cholesterol, or diabetes. Foods may need to be a special consistency (soft, pureed, small bites) to avoid food going into your lungs or choking. Home safety A safe home environment is important to reduce the risk of falls. Your caregiver may arrange for specialists to evaluate your home. Grab bars in the bedroom and bathroom are often important. Your caregiver may arrange for special equipment to be used at home, such as raised toilets and a seat for the shower. It s important to know and control your risk factors, but it is also important to recognize the signs and symptoms of stroke/TIA and know what to do: Call 911 if any of these things happen: Sudden numbness or weakness of the face, arm, or leg especially on one side of the body. Sudden confusion, trouble speaking, or understanding. Sudden trouble seeing in one or both eyes. Sudden trouble walking, dizziness, loss of balance or coordination Sudden severe headache with no known cause * It is very important for you to follow-up with your Primary Care Doctor and your Neurologist after you go home. Make sure that you keep your doctor visits. Remember: TIME LOST is BRAIN LOST Resources: for more information on strokes, log onto www.[email or web address] or www.strokeassociation.org or call the [place] [employer] at [phone]) 836- 2541. Revised 10/2018 Follow Up Care 01/01/2024 06:23:28 With:Amarilis TORRES Address: [address] [place], [place] [id number] Business (1) When: Unknown [facility] 01-02-2024 Note Basic Information Admit Date/Time:01/01/2024 09:48 Chief Complaint fell out of bed History of Present Illness This is a 78-year-old female with a history significant for prior CVA approximately 6 years ago, hypertension, hyperlipidemia that presented to the emergency department after a fall. She did not strike her head or have LOC. She was attempting to get out of bed and was able to stand. There is some weakness observed to the right side. She did report associated mental fogginess as well as difficulty with her speech, although this is chronic from her prior CVA. She does take a daily aspirin but did not take her dose this morning. There has been no blurred vision, headaches or diplopia. No complaints of difficulty chewing or swallowing. In the emergency department she did receive a stat CT of the brain. She did have mild hypertension. CBC unremarkable, chemistry unremarkable. UA with mild leukoesterase otherwise unremarkable. Prior urinalysis historically grows E. coli. She was referred to medicine team for CVA rule out. Review of Systems Constitutional: no fever, no chills, no sweats, mild weakness Skin: no Jaundice, no rash, no lesions, nopetechiae ENMT: no ear pain, no sore throat, no congestion, no hoarseness Respiratory: no shortness of breath, no cough, no orthopnea, no wheezing Cardiovascular: no chest pain, no palpitations, mild edema Gastrointestinal: no nausea, no vomiting, mild diarrhea, no GI bleeding Genitourinary: no dysuria, no hematuria, no discharge, no pain Musculoskeletal: no back pain, no trauma Neurologic: no headache, no dizziness, no numbness, mild weakness Psychiatric: no sleeping problems, no irritability, no mood swings/depression. Heme/Lymph: no bleeding tendency, no bruising tendency, no petechiae, no swollen nodes Allergy/Immunologic: no seasonal allergies, no food allergies, no recurrent infections, no impaired immunity Additional ROS info: Except as noted in the above Review of Systems and in the History of Present Illness all other systems have been reviewed and are negative or noncontributory. Scoring Schmidt Fall Risk Score: 85 High (01/01/24) Physical Exam Vitals & Measurements T: 36.5 ?C(Oral) TMIN: 36.5 ?C(Oral) TMAX: 36.9 ?C(Oral) HR: 48(Monitored) RR: 12 BP: 113/70 SpO2: 97% HT: 142 cm WT: 48.5 kg General: alert, no acute distress Skin: warm, dry Head: no trauma, normocephalic Neck: Trachea midline, no adenopathy, no tenderness Eye: normal conjunctiva, sclera clear ENMT: TM's clear, oral mucosa moist, no pharyngeal erythema or exudate. Pupils 2 mm and briskly react Cardiovascular: regular rate and rhythm, normal peripheral perfusion Respiratory: Lungs CTA, respirations non labored Chest wall: no deformity. Gastrointestinal: soft, non distended, no tenderness, no guarding. Back: No tenderness, Normal ROM, Normal alignment. Extremities: no deformity, no trauma Neurological: oriented x 4, LOC appropriate for age, CN II-XII intact, motor strength decreased on right, sensation decreased on right, speech aphasic mild (not new finding for her) Psychiatric: cooperative, affect appropriate for age, normal judgement, normal psychiatric thoughts. Lab Results WBC: 10.2 E9/L (01/01/24 06:42:00) RBC: 4.7 E12/L (01/01/24 06:42:00) HGB: 12.7 gm/dL (01/01/24 06:42:00) Hct: 40.3 % (01/01/24 06:42:00) MCV: 86.4 fL (01/01/24 06:42:00) MCH: 27.3 pg (01/01/24 06:42:00) MCHC: 31.6 gm/dL (01/01/24 06:42:00) RDW: 17.1 % High (01/01/24 06:42:00) Platelet: 485 E9/L (01/01/24 06:42:00) MPV: 7.3 fL (01/01/24 06:42:00) RBC Morph: NORMAL (01/01/24:42:00) PT: 10.4 second(s) (01/01/24 06:42:00) INR: 0.93 (01/01/24 06:42:00) PTT: 37.2 second(s) High (01/01/24 06:42:00) Glucose Lvl: 89 mg/dL (01/01/24 06:42:00) BUN: 12 mg/dL (01/01/24 06:42:00) Creatinine: 1 mg/dL (01/01/24 06:42:00) eGFR: 57 mL/min/1.73 m2 Low (01/01/24 06:42:00) BUN/Creat Ratio: 12 (01/01/24 06:42:00) Sodium Lvl: 139 mmol/L (01/01/24 06:42:00) Potassium Lvl: 4.5 mmol/L (01/01/24 06:42:00) Chloride: 108 mmol/L (01/01/24 06:42:00) CO2: 23 mmol/L (01/01/24 06:42:00) AGAP: 13 mEq/L (01/01/24 06:42:00) Calcium Lvl: 9.7 mg/dL (01/01/24 06:42:00) Alk Phos: 91 Int._Unit/L (01/01/24 06:42:00) ALT: 7 Int._Unit/L (01/01/24 06:42:00) AST: 12 Int._Unit/L (01/01/24 06:42:00) Total Protein: 6.8 gm/dL (01/01/24 06:42:00) Albumin Lvl: 3.4 gm/dL (01/01/24 06:42:00) Globulin: 3.4 gm/dL (01/01/24 06:42:00) A/G Ratio: 1 Low (01/01/24 06:42:00) Bili Total: 0.7 mg/dL (01/01/24 06:42:00) Troponin: 11.3 pg/mL (01/01/24 06:42:00) Glucose Cap: 154 mg/dL High (01/01/24 08:01:00) POC Device SN: [id number] (01/01/24 08:01:00) POC User ID: [id number] (01/01/24 08:01:00) POC Username: CARMELINA ROMAN (01/01/24 08:01:00) UA Spec Desc: Clean Catch (01/01/24 08:42:00) UA Color: Yellow2 (01/01/24 08:42:00) UA Clarity: Clear2 (01/01/24 08:42:00) UA Spec Grav: 1.010 (01/01/24 08:42:00) UA pH: 7.0 (12/31 (more content not included)... [facility] Comment on above: Result Comment: Elec tronically Signed By: Flor Poole\.br\Date and Time Signed: 01/01/24 16:25 EST\.br\Electronically Co-Signed By: Daniel Brown MD\.br\Date and Time Co-Signed: 01/02/24 13:43 EST 01-01-2024 Evaluation + Plan note Extrac ana from: Title:Admission H & P Author:Flor Poole Date:01/01/24 1. Acute CVA (cerebrovascula r accident) (I63.9: Cerebral infarction, unspecified) 2/2 secondary to high-grade stenosis of the left proximal internal carotid artery with resultant watershed small acute/subacute ischemic infarcts to the left cerebrum NIH scorin PLAN: Stroke protocol order set Neurology consult MRI brain/MRA brain and neck these were completed and provided results as above --> Plan to transfer to tertiary center for intervention contacted Tertiary center waiting call back Neuro checks q 4 hours Dysphagia screening, she did pass her dysphagia screen PT/OT/ST Continuous cardiac monitoring Serial cardiac enzyme panel Lipid panel Hemoglobin A1C Aspirin 81 mg daily High-intensity statin 2. Carotid artery stenosis with cerebral infarction (I63.239: Cerebral infarction due to unspecified occlusion or stenosis of unspecified carotid artery) As above Orders: ondansetron, 4 mg = 2 mL, Injection, IV Push, q6hr PRN Nausea/Vomiting, Routine, Start date 01/01/24 9:48:00 EST, 01/01/24 9:48:00 EST Ambulate with Assistance Basic Metabolic Panel Below the Knee Intermittent Pneumatic Compression Device Cardiac Monitoring CBC w/ Auto Diff Communication Order Communication Order Physician to Nursing Consult to Neurology Dysphagia Screen Evaluate Need For Continued Telemetry HgbA1c Intake and Output Lipid Panel Magnesium Level MRA Head w/o Contrast MRA Neck w/o Contrast MRI Brain w/o Contrast Neurological Assessment Notify Provider Vital Signs Notify Provider Vital Signs NPO Diet Occupational Therapy Evaluate Patient, Develop a Plan of Care and Implement Plan Physical Therapy Evaluate Patient, Develop a Plan of Care and Implement Plan Precautions Speech Language Pathology Evaluate Patient, Develop a Plan of Care and Implement Plan Speech Language Pathology Swallow Eval; Evaluate Pt, Develop a Plan of Care & Implement Plan Stroke Education Stroke Quality Measures TSH With T4fr Reflex Weight Extracted from: Title:ED Note Author:Benjamín Ibanez DO Date: Accidental fall (W19.XXXA: U nspecified fall, initial encounter) Right sided weakness (R53.1: Weakness) Orders: Dextrose 10% in Water intravenous solution, 200 mL, Soln-IV, IV, Once, Stop date 01/01/24 7:11:00 EST, STAT, Start date 01/01/24 7:11:00 EST, 800 mL/hr, Infuse over 15, minute(s), Total Vol (mL): 200 ABO/Rh ABO/Rh History Check Antibody Screen Blood Bank ID# Capillary Glucose POC Cardiac Monitoring CBC w/ Indices Communication Order Communication Order Comprehensive Metabolic Panel Continuous Pulse Oximetry CT Head or Brain w/o Contrast CT Spine Cervical w/o Contrast Dysphagia Screen ECG 12 Lead Adult ED Physician consult Hospitalist for continued care eGFR Extra SST Tube Neurological Assessment NPO Diet Oxygen Protocol PT PTT Rapid Response Form Routine Capillary Glucose POC Stroke Quality Measures Troponin 0 Hr. UA With Cult Reflex Urine Culture XR Chest Single View Future Appointments Appointment Date:01/05/2024 12:30:00 PM Scheduled Provider: Location:.[facility] [place] Appointment Type:PT 45 (FT) Appointment Date:01/07/2024 09:15:00 AM Scheduled Provider: [facility] Appoint[facility] Type:PT 45 (FT) Appointment Date:01/14/2024 10:00:00 AM Scheduled Provider: [facility] Appointment Type:PT Re-Eval 45 (FT) Appointment Date:06/21/2024 06:00:00 PM Scheduled Provider:[facility]: [facility] Future Scheduled Tests Laboratory* Prealbumin 12/22/23 * Comprehensive Metabolic Panel 12/22/23 * Lipid Panel 12/22/23 [facility]03-07-2024 NoteOT order received and chart reviewed. No OT evaluation complete this date as Pt is being transferred to per nurse.[facility]01-14-2024 Hospital Discharge instructions Patient Education 11/09/2023 12:59:21 Chronic Kidney Disease, Adult Chronic Kidney Disease, Adult Chronic kidney disease (CKD) occurs when the kidneys are slowly and permanently damaged over a longperiod of time. The kidneys are a pair of organs that do many important jobs in the body, including: Removing waste and extra fluid from the blood to make urine. Making hormones that maintain the amount of fluid in tissues and blood vessels. Maintaining the right amount of fluids and chemicals in the body. A small amount of kidney damage may not cause problems, but a large amount of damage may make it hard or impossible for the kidneys to work right. Steps must be taken to slow kidney damage or to stopit from getting worse. If steps are not taken, the kidneys may stop working permanently (end-stage renal disease, or ESRD). Most of the time, CKD does not go away, but it can often be controlled. People who have CKD are usually able to live full lives. What are the causes? The most common causes of this condition are diabetes and high blood pressure (hypertension). Other causes include: Cardiovascular diseases. These affect the heart and blood vessels. Kidney diseases. These include: ?Glomerulonephritis, or inflammation of the tiny filters in the kidneys. ?Interstitial nephritis. This is swelling of the small tubes of the kidneys and of the surrounding structures. ?Polycystic kidney disease, in which clusters of fluid-filled sacs form within the kidneys. ?Renal vascular disease. This includes disorders that affect the arteries and veins of the kidneys. Diseases that affect the body's defense system (immune system). A problem with urine flow. This may be caused by: ?Kidney stones. ?Cancer. ?An enlarged prostate, in males. A kidney infection or urinary tract infection (UTI) that keeps coming back. Vasculitis. This is swelling or inflammation of the blood vessels. What increases the risk? Your chances of having kidney disease increase with age. The following factors may make you more likely to develop this condition: A family history of kidney disease or kidney failure. Kidney failure means the kidneys can no longer work right. Certain genetic diseases. Taking medicines often that are damaging to the kidneys. Being around or being in contact with toxic substances. Obesity. A history of tobacco use. What are the signs or symptoms? Symptoms of this condition include: Feeling very tired (lethargic) and having less energy. Swelling, or edema, of the face, legs, ankles, or feet. Nausea or vomiting, or loss of appetite. Confusion or trouble concentrating. Muscle twitches and cramps, especially in the legs. Dry, itchy skin. A metallic taste in the mouth. Producing less urine, or producing more urine (especially at night). Shortness of breath. Trouble sleeping. CKD may also result in not having enough red blood cells or hemoglobin in the blood (anemia) or having weak bones (bone disease). Symptoms develop slowly and may not be obvious until the kidney damage becomes severe. It is possible to have kidney disease for years without having symptoms. How is this diagnosed? This condition may be diagnosed based on: Blood tests. Urine tests. Imaging tests, such as an ultrasound or a CT scan. A kidney biopsy. This involves removing a sample of kidney tissue to be looked at under a microscope. Results from these tests will help to determine how serious the CKD is. How is this treated? There is no cure for most cases of this condition, but treatment usually relieves symptoms and prevents or slows the worsening of the disease. Treatment may include: Diet changes, which may require you to avoid alcohol and foods that are high in salt, potassium, phosphorous, and protein. Medicines. These may: ?Lower blood pressure. ?Control blood sugar (glucose). ?Relieve anemia. ?Relieve swelling. ?Protect your bones. ?Improve the balance of salts and minerals in your blood (electrolytes). Dialysis, which is a type of treatment that removes toxic waste from the body. It may be needed if you have kidney failure. Managing any other conditions that are causing your CKD or making it worse. Follow these instructions at home: Medicines Take rmjx-ihh-uplfetm and prescription medicines only as told by your health care provider. The amount of some medicines that you take may need to be changed. Do not take any new medicines unless approved by your health care provider. Many medicines can makekidney damage worse. Do not take any vitamin and mineral supplements unless approved by your health care provider. Many nutritional supplements can make kidney damage worse. Lifestyle Do not use any products that contain nicotine or tobacco, such as cigarettes, e- cigarettes, and chewing tobacco. If you need help quitting, ask your health care provider. If you drink alcohol: ?Limit how much you use to: ?0 1 drink a day for women who are not . ?0 2 drinks a day for men. ?Know how much alcohol is in your drink. In the [place] one drink equals one 12 oz bottle of beer (355 mL), one 5 oz glass of wine (148 mL), or one 1 oz glass of hard liquor (44 mL). Maintain a healthy weight. If you need help, ask your health care provider. General instructions Follow instructions from your health care provider about eating or drinking restrictions, includingany prescribed diet. Track your blood pressure at home. Report changes in your blood pressure as told. If you are being treated for diabetes, track your blood glucose levels as told. Start or continue an exercise plan. Exercise at least 30 minutes a day, 5 days a week. Keep your immunizations up to date as told. Keep all follow-up visits. This is important. Where to find more information [place] [employer] Patients: www.aakp.org National Kidney Foundation: www.kidney.org [place] [employer]: www.akfinc.org Life Options: www.lifeoptions.org Kidney School: www.kidneyschool.org Contact a health care provider if: Your symptoms get worse. You develop new symptoms. Get help right away if: You develop symptoms of ESRD. These include: ?Headaches. ?Numbness in your hands or feet. ?Easy bruising. ?Frequent hiccups. ?Chest pain. ?Shortness of breath. ?Lack of menstrual periods, in women. You have a fever. You are producing less urine than usual. You have pain or bleeding when you urinate or when you have a bowel movement. These symptoms may represent a serious problem that is an emergency. Do not wait to see if the symptoms will go away. Get medical help right away. Call your local emergency services (911 in the [place] Do not drive yourself to the hospital. Summary Chronic kidney disease (CKD) occurs when the kidneys become damaged slowly over a long period of time. The most common causes of this condition are diabetes and high blood pressure (hypertension). There is no cure for most cases of CKD, but treatment usually relieves symptoms and prevents or slows the worsening of the disease. Treatment may include a combination of lifestyle changes, medicines, and dialysis. This information is not intended to replace advice given to you by your health care provider. Make sure you discuss any questions you have with your health care provider. Document Revised: 01/17/2021 Document Reviewed: 01/17/2021 [employer] Patient Education 2022 [employer]. Follow Up Care 05/13/2023 19:20:05 With:Amarilis TORRES MD, FAM Address: When:6 weeks Comments:labs will be called [facility] [place] 07-16-2023 Hospital Discharge instructions Patient Education 05/11/2023 07:58:11 Chronic Kidney Disease, Adult, Lflx-uk-Xisc Chronic Kidney Disease, Adult Chronic kidney disease is when lasting damage happens to the kidneys slowly over a long time. The kidneys help to: Make pee (urine). Make hormones. Keep the right amount of fluids and chemicals in the body. Most often, this disease does not go away. You must take steps to help keep the kidney damage from getting worse. If steps are not taken, the kidneys might stop working forever. What are the causes? Diabetes. High blood pressure. Diseases that affect the heart and blood vessels. Other kidney diseases. Diseases of the body's disease-fighting system. A problem with the flow of pee. Infections of the organs that make pee, store it, and take it out of the body. Swelling or irritation of your blood vessels. What increases the risk? Getting older. Having someone in your family who has kidney disease or kidney failure. Having a disease caused by genes. Taking medicines often that harm the kidneys. Being near or having contact with harmful substances. Being very overweight. Using tobacco now or in the past. What are the signs or symptoms? Feeling very tired. Having a swollen face, legs, ankles, or feet. Feeling like you may vomit or vomiting. Not feeling hungry. Being confused or not able to focus. Twitches and cramps in the leg muscles or other muscles. Dry, itchy skin. A taste of metal in your mouth. Making less pee, or making more pee. Shortness of breath. Trouble sleeping. You may also become anemic or get weak bones. Anemic means there is not enough red blood cells or hemoglobin in your blood. You may get symptoms slowly. You may not notice them until the kidney damage gets very bad. How is this treated? Often, there is no cure for this disease. Treatment can help with symptoms and help keep the disease from getting worse. You may need to: Avoid alcohol. Avoid foods that are high in salt, potassium, phosphorous, and protein. Take medicines for symptoms and to help control other conditions. Have dialysis. This treatment gets harmful waste out of your body. Treat other problems that cause your kidney disease or make it worse. Follow these instructions at home: Medicines Take ubgk-unh-bvngsln and prescription medicines only as told by your doctor. Do not take any new medicines, vitamins, or supplements unless your doctor says it is okay. Lifestyle Do not smoke or use any products that contain nicotine or tobacco. If you need help quitting, ask your doctor. If you drink alcohol: ?Limit how much you use to: ?0 1 drink a day for women who are not . ?0 2 drinks a day for men. ?Know how much alcohol is in your drink. In the [place] one drink equals one 12 oz bottle of beer (355 mL), one 5 oz glass of wine (148 mL), or one 1 oz glass of hard liquor (44 mL). Stay at a healthy weight. If you need help losing weight, ask your doctor. General instructions Follow instructions from your doctor about what you cannot eat or drink. Track your blood pressure at home. Tell your doctor about any changes. If you have diabetes, track your blood sugar. Exercise at least 30 minutes a day, 5 days a week. Keep your shots (vaccinations) up to date. Keep all follow-up visits. Where to find more information [place] [employer] Patients: www.aakp.org National Kidney Foundation: www.kidney.org [place] [employer]: www.akfinc.org Life Options: www.lifeoptions.org Kidney School: www.kidneyschool.org Contact a doctor if: Your symptoms get worse. You get new symptoms. Get help right away if: You get symptoms of end-stage kidney disease. These include: ?Headaches. ?Losing feeling in your hands or feet. ?Easy bruising. ?Having hiccups often. ?Chest pain. ?Shortness of breath. ?Lack of menstrual periods, in women. You have a fever. You make less pee than normal. You have pain or you bleed when you pee or poop. These symptoms may be an emergency. Get help right away. Call your local emergency services (911 int [place] Do not wait to see if the symptoms will go away. Do not drive yourself to the hospital. Summary Chronic kidney disease is when lasting damage happens to the kidneys slowly over a long time. Causes of this disease include diabetes and high blood pressure. Often, there is no cure for this disease. Treatment can help symptoms and help keep the disease from getting worse. Treatment may involve lifestyle changes, medicines, and dialysis. This information is not intended to replace advice given to you by your health care provider. Make sure you discuss any questions you have with your health care provider. Document Revised: 01/17/2021 Document Reviewed: 01/17/2021 [employer] Patient Education 2022 [employer] Follow Up Care 11/12/2022 18:45:16 With:Amarilis TORRES MD, FAM Address: [address] [place] [address] [place] [address]- When:6 months Comments:get labs at [facility] [place] perhaps in September, see me in October [facility] [place] 01-17-2023 Hospital Discharge instructions Patient Education 11/12/2022 21:35:59 Ischemic Stroke Ischemic Stroke An ischemic stroke (cerebrovascular accident, or CVA) is the sudden of brain tissue that occurs when an area of the brain does not get enough oxygen. It is a medical emergency that must be treated right away. An ischemic stroke can cause permanent loss of brain function. This can cause problems with how different parts of your body function. What are the causes? This condition is caused by a decrease of oxygen supply to an area of the brain, which may be the result of: A small blood clot (embolus) or a buildup of plaque in the blood vessels (atherosclerosis) that blocks blood flow in the brain. An abnormal heart rhythm (atrial fibrillation). A blocked or damaged artery in the head or neck. Sometimes the cause of stroke is not known (cryptogenic). What increases the risk? Certain factors may make you more likely to develop this condition. Some of these factors are things that you can change, such as: Obesity. Smoking cigarettes. Taking oral control, especially if you also use tobacco. Physical inactivity. Excessive alcohol use. Use of illegal drugs, especially cocaine and methamphetamine. Other risk factors include: High blood pressure (hypertension). High cholesterol. Diabetes mellitus. Heart disease. Being , , , or . Being over age 60. Family history of stroke. Previous history of blood clots, stroke, or transient ischemic attack (TIA). Sickle cell disease. Being a woman with a history of preeclampsia. Migraine headache. Sleep apnea. Irregular heartbeats, such as atrial fibrillation. Chronic inflammatory diseases, such as rheumatoid arthritis or lupus. Blood clotting disorders (hypercoagulable state). What are the signs or symptoms? Symptoms of this condition usually develop suddenly, or you may notice them after waking up from sleep. Symptoms may include sudden: Weakness or numbness in your face, arm, or leg, especially on one side of your body. Trouble walking or difficulty moving your arms or legs. Loss of balance or coordination. Confusion. Slurred speech (dysarthria). Trouble speaking, understanding speech, or both (aphasia). Vision changes such as double vision, blurred vision, or loss of vision in one or both eyes. Dizziness. Nausea and vomiting. Severe headache with no known cause. The headache is often described as the worst headache ever experienced. If possible, make note of the exact time that you last felt like your normal self and what time your symptoms started. Tell your health care provider. If symptoms come and go, this could be a sign of a warning stroke, or TIA. Get help right away, even if you feel better. How is this diagnosed? This condition may be diagnosed based on: Your symptoms, your medical history, and a physical exam. CT scan of the brain. MRI. CT angiogram. This test uses a computer to take X-rays of your arteries. A dye may be injected intoyour blood to show the inside of your blood vessels more clearly. MRI angiogram. This is a type of MRI that is used to evaluate the blood vessels. Cerebral angiogram. This test uses X-rays and a dye to show the blood vessels in the brain and neck. You may need to see a health care provider who specializes in stroke care. A stroke specialist can be seen in person or through communication using telephone or television technology (telemedicine). Other tests may also be done to find the cause of the stroke, such as: Electrocardiogram (ECG). Continuous heart monitoring. Echocardiogram. Transesophageal echocardiogram (LATONYA). Carotid ultrasound. A scan of the brain circulation. Blood tests. Sleep study to check for sleep apnea. How is this treated? Treatment for this condition will depend on the duration, severity, and cause of your symptoms and on the area of the brain affected. It is very important to get treatment at the first sign of strokesymptoms. Some treatments work better if they are done within 3 6 hours of the onset of stroke symptoms. These initial treatments may include: Aspirin. Medicines to control blood pressure. Medicine given by injection to dissolve the blood clot (thrombolytic). Treatments given directly to the affected artery to remove or dissolve the blood clot. Other treatment options may include: Oxygen. IV fluids. Medicines to thin the blood (anticoagulants or antiplatelets). Procedures to increase blood flow. Medicines and changes to your diet may be used to help treat and manage risk factors for stroke, such as diabetes, high cholesterol, and high blood pressure. After a stroke, you may work with physical, speech, mental health, or occupational therapists to help you recover. Follow these instructions at home: Medicines Take vuuu-ycl-jwgmiak and prescription medicines only as told by your health care provider. If you were told to take a medicine to thin your blood, such as aspirin or an anticoagulant, take it exactly as told by your health care provider. ?Taking too much blood-thinning medicine can cause bleeding. ?If you do not take enough blood-thinning medicine, you will not have the protection that you need against another stroke and other problems. Understand the side effects of taking anticoagulant medicine. When taking this type of medicine, make sure you: ?Hold pressure over any cuts for longer than usual. ?Tell your dentist and other health care providers that you are taking anticoagulants before you have any procedures that may cause bleeding. ?Avoid activities that may cause trauma or injury. Eating and drinking Follow instructions from your health care provider about diet. Eat healthy foods. If your ability to swallow was affected by the stroke, you may need to take steps to avoid choking,such as: ?Taking small bites when eating. ?Eating foods that are soft or pureed. Safety Follow instructions from your health care team about physical activity. Use a walker or cane as told by your health care provider. Take steps to create a safe home environment in order to reduce the risk of falls. This may include: ?Having your home looked at by specialists. ?Installing grab bars in the bedroom and bathroom. ?Using safety equipment, such as raised toilets and a seat in the shower. General instructions Do not use any tobacco products, such as cigarettes, chewing tobacco, and e- cigarettes. If you needhelp quitting, ask your health care provider. Limit alcohol intake to no more than 1 drink a day for non women and 2 drinks a day for men. One drink equals 12 oz of beer, 5 oz of wine, or 1 oz of hard liquor. If you need help to stop using drugs or alcohol, ask your health care provider about a referral to a program or specialist. Maintain an active and healthy lifestyle. Get regular exercise as told by your health care provider. Keep all follow-up visits as told by your health care provider, including visits with all specialists on your health care team. This is important. How is this prevented? Your risk of another stroke can be decreased by managing high blood pressure, high cholesterol, diabetes, heart disease, sleep apnea, and obesity. It can also be decreased by quitting smoking, limiting alcohol, and staying physically active. Your health care provider will continue to work with you on measures to prevent short-term and long-term complications of stroke. Get help right away if: You have any symptoms of a stroke. BE FAST is an easy way to remember the main warning signs of astroke: ?B - Balance. Signs are dizziness, sudden trouble walking, or loss of balance. ?E - Eyes. Signs are trouble seeing or a sudden change in vision. ?F - Face. Signs are sudden weakness or numbness of the face, or the face or eyelid drooping on oneside. ?A - Arms. Signs are weakness or numbness in an arm. This happens suddenly and usually on one side of the body. ?S - Speech. Signs are sudden trouble speaking, slurred speech, or trouble understanding what people say. ?T - Time. Time to call emergency services. Write down what time symptoms started. You have other signs of a stroke, such as: ?A sudden, severe headache with no known cause. ?Nausea or vomiting. ?Seizure. These symptoms may represent a serious problem that is an emergency. Do not wait to see if the symptoms will go away. Get medical help right away. Call your local emergency services (911 in the [place] Do not drive yourself to the hospital. Summary An ischemic stroke (cerebrovascular accident, or CVA) is the sudden of brain tissue that occurs when an area of the brain does not get enough oxygen. Symptoms of this condition usually develop suddenly, or you may notice them after waking up from sleep. It is very important to get treatment at the first sign of stroke symptoms. Stroke is a medical emergency that must be treated right away. This information is not intended to replace advice given to you by your health care provider. Make sure you discuss any questions you have with your health care provider. Document Released: 10/13/2006 Document Revised: 07/02/2019 Document Reviewed: 01/08/2017 [employer] Patient Education 2020 [employer]. Follow Up Care 05/10/2022 16:43:10 With:Amarilis TORRES MD, FAM Address: [address] [place] [id number]- When:6 months Comments:get labs at [facility] soon orders in [facility] [place] 07-03-2022 Hospital Discharge instructions Patient Education 04/28/2022 21:59:47 Managing Your Hypertension Managing Your Hypertension Hypertension is commonly called high blood pressure. This is when the force of your blood pressing against the valdez of your arteries is too strong. Arteries are blood vessels that carry blood from your heart throughout your body. Hypertension forces the heart to work harder to pump blood, and may cause the arteries to become narrow or stiff. Having untreated or uncontrolled hypertension can cause heart attack, stroke, kidney disease, and other problems. What are blood pressure readings? A blood pressure reading consists of a higher number over a lower number. Ideally, your blood pressure should be below 120/80. The first ( top ) number is called the systolic pressure. It is a measure of the pressure in your arteries as your heart beats. The second ( bottom ) number is called the diastolic pressure. It is a measure of the pressure in your arteries as the heart relaxes. What does my blood pressure reading mean? Blood pressure is classified into four stages. Based on your blood pressure reading, your health care provider may use the following stages to determine what type of treatment you need, if any. Systolic pressure and diastolic pressure are measured in a unit called mm Hg. Normal Systolic pressure: below 120. Diastolic pressure: below 80. Elevated Systolic pressure: 120-129. Diastolic pressure: below 80. Hypertension stage 1 Systolic pressure: 130-139. Diastolic pressure: 80-89. Hypertension stage 2 Systolic pressure: 140 or above. Diastolic pressure: 90 or above. What health risks are associated with hypertension? Managing your hypertension is an important responsibility. Uncontrolled hypertension can lead to: A heart attack. A stroke. A weakened blood vessel (aneurysm). Heart failure. Kidney damage. Eye damage. Metabolic syndrome. Memory and concentration problems. What changes can I make to manage my hypertension? Hypertension can be managed by making lifestyle changes and possibly by taking medicines. Your health care provider will help you make a plan to bring your blood pressure within a normal range. Eating and drinking Eat a diet that is high in fiber and potassium, and low in salt (sodium), added sugar, and fat. An example eating plan is called the DASH (Dietary Approaches to Stop Hypertension) diet. To eat this way: ?Eat plenty of fresh fruits and vegetables. Try to fill half of your plate at each meal with fruitsand vegetables. ?Eat whole grains, such as whole wheat pasta, brown rice, or whole grain bread. Fill about one quarter of your plate with whole grains. ?Eat low-fat diary products. ?Avoid fatty cuts of meat, processed or cured meats, and poultry with skin. Fill about one quarter of your plate with lean proteins such as fish, chicken without skin, beans, eggs, and tofu. ?Avoid premade and processed foods. These tend to be higher in sodium, added sugar, and fat. Reduce your daily sodium intake. Most people with hypertension should eat less than 1,500 mg of sodium a day. Limit alcohol intake to no more than 1 drink a day for non women and 2 drinks a day for men. One drink equals 12 oz of beer, 5 oz of wine, or 1 oz of hard liquor. Lifestyle Work with your health care provider to maintain a healthy body weight, or to lose weight. Ask what an ideal weight is for you. Get at least 30 minutes of exercise that causes your heart to beat faster (aerobic exercise) most days of the week. Activities may include walking, swimming, or biking. Include exercise to strengthen your muscles (resistance exercise), such as weight lifting, as part of your weekly exercise routine. Try to do these types of exercises for 30 minutes at least 3 days aweek. Do not use any products that contain nicotine or tobacco, such as cigarettes and e-cigarettes. If you need help quitting, ask your health care provider. Control any long-term (chronic) conditions you have, such as high cholesterol or diabetes. Monitoring Monitor your blood pressure at home as told by your health care provider. Your personal target blood pressure may vary depending on your medical conditions, your age, and other factors. Have your blood pressure checked regularly, as often as told by your health care provider. Working with your health care provider Review all the medicines you take with your health care provider because there may be side effects or interactions. Talk with your health care provider about your diet, exercise habits, and other lifestyle factors that may be contributing to hypertension. Visit your health care provider regularly. Your health care provider can help you create and adjustyour plan for managing hypertension. Will I need medicine to control my blood pressure? Your health care provider may prescribe medicine if lifestyle changes are not enough to get your blood pressure under control, and if: Your systolic blood pressure is 130 or higher. Your diastolic blood pressure is 80 or higher. Take medicines only as told by your health care provider. Follow the directions carefully. Blood pressure medicines must be taken as prescribed. The medicine does not work as well when you skip doses. Skipping doses also puts you at risk for problems. Contact a health care provider if: You think you are having a reaction to medicines you have taken. You have repeated (recurrent) headaches. You feel dizzy. You have swelling in your ankles. You have trouble with your vision. Get help right away if: You develop a severe headache or confusion. You have unusual weakness or numbness, or you feel faint. You have severe pain in your chest or abdomen. You vomit repeatedly. You have trouble breathing. Summary Hypertension is when the force of blood pumping through your arteries is too strong. If this condition is not controlled, it may put you at risk for serious complications. Your personal target blood pressure may vary depending on your medical conditions, your age, and other factors. For most people, a normal blood pressure is less than 120/80. Hypertension is managed by lifestyle changes, medicines, or both. Lifestyle changes include weight loss, eating a healthy, low-sodium diet, exercising more, and limiting alcohol. This information is not intended to replace advice given to you by your health care provider. Make sure you discuss any questions you have with your health care provider. Document Released: 07/07/2013 Document Revised: 02/04/2020 Document Reviewed: 09/10/2017 [employer] Patient Education 2020 [employer]. 04/28/2022 21:58:17 Coronary Artery Disease, Female Coronary Artery Disease, Female Coronary artery disease (CAD) is a condition in which the arteries that lead to the heart (coronaryarteries) become narrow or blocked. The narrowing or blockage can lead to decreased blood flow to the heart. Prolonged reduced blood flow can cause a heart attack (myocardial infarction or NE). This condition may also be called coronary heart disease. Because CAD is the leading cause of in women, it is important to understand what causes this condition and how it is treated. What are the causes? CAD is most often caused by atherosclerosis. This is the buildup of fat and cholesterol (plaque) onthe inside of the arteries. Over time, the plaque may narrow or block the artery, reducing blood flow to the heart. Plaque can also become weak and break off within a coronary artery and cause a sudden blockage. Other less common causes of CAD include: A blood clot or a piece of a blood clot or other substance that blocks the flow of blood in a coronary artery (embolism). A tearing of the artery (spontaneous coronary artery dissection). An enlargement of an artery (aneurysm). Inflammation (vasculitis) in the artery wall. What increases the risk? The following factors may make you more likely to develop this condition: Age. Women over age 55 are at a greater risk of CAD. Family history of CAD. High blood pressure (hypertension). Diabetes. High cholesterol levels. Tobacco use. Lack of exercise. Menopause. ?All postmenopausal women are at greater risk of CAD. ?Women who have experienced menopause between the ages of 40 45 (early menopause) are at a higher risk of CAD. ?Women who have experienced menopause before age 40 (premature menopause) are at a very high risk of CAD. Excessive alcohol use. A diet high in saturated and trans fats, such as fried food and processed meat. Other possible risk factors include: High stress levels. Depression. Obesity. Sleep apnea. What are the signs or symptoms? Many people do not have any symptoms during the early stages of CAD. As the condition progresses, symptoms may include: Chest pain (angina). The pain can: ?Feel like crushing or squeezing, or like a tightness, pressure, fullness, or heaviness in the chest. ?Last more than a few minutes or can stop and recur. The pain tends to get worse with exercise or stress and to fade with rest. Pain in the arms, neck, jaw, ear, or back. Unexplained heartburn or indigestion. Shortness of breath. Nausea. Sudden cold sweats. Sudden light-headedness. Fluttering or fast heartbeat (palpitations). Many women have chest discomfort and the other symptoms. However, women often have unusual (atypical) symptoms, such as: Fatigue. Vomiting. Unexplained feelings of nervousness or anxiety. Unexplained weakness. Dizziness or fainting. How is this diagnosed? This condition is diagnosed based on: Your family and medical history. A physical exam. Tests, including: ?A test to check the electrical signals in your heart (electrocardiogram). ?Exercise stress test. This looks for signs of blockage when the heart is stressed with exercise, such as running on a treadmill. ?Pharmacologic stress test. This test looks for signs of blockage when the heart is being stressed with a medicine. ?Blood tests. ?Coronary angiogram. This is a procedure to look at the coronary arteries to see if there is any blockage. During this test, a dye is injected into your arteries so they appear on an X-ray. ?Coronary artery CT scan. This CT scan helps detect calcium deposits in your coronary arteries. Calcium deposits are an indicator of CAD. ?A test that uses sound waves to take a picture of your heart (echocardiogram). ?Chest X-ray. How is this treated? This condition may be treated by: Healthy lifestyle changes to reduce risk factors. Medicines such as: ?Antiplatelet medicines and blood-thinning medicines, such as aspirin. These help to prevent blood clots. ?Nitroglycerin. ?Blood pressure medicines. ?Cholesterol-lowering medicine. Coronary angioplasty and stenting. During this procedure, a thin, flexible tube is inserted througha blood vessel and into a blocked artery. A balloon or similar device on the end of the tube is inflated to open up the artery. In some cases, a small, mesh tube (stent) is inserted into the artery to keep it open. Coronary artery bypass surgery. During this surgery, veins or arteries from other parts of the bodyare used to create a bypass around the blockage and allow blood to reach your heart. Follow these instructions at home: Medicines Take [id number] and prescription medicines only as told by your health care provider. Do not take the following medicines unless your health care provider approves: ?NSAIDs, such as ibuprofen, naproxen, or celecoxib. ?Vitamin supplements that contain vitamin A, vitamin E, or both. ?Hormone replacement therapy that contains estrogen with or without progestin. Lifestyle Follow an exercise program approved by your health care provider. Aim for 150 minutes of moderate exercise or 75 minutes of vigorous exercise each week. Maintain a healthy weight or lose weight as approved by your health care provider. Learn to manage stress or try to limit your stress. Ask your health care provider for suggestions if you need help. Get screened for depression and seek treatment, if needed. Do not use any products that contain nicotine or tobacco, such as cigarettes, e- cigarettes, and chewing tobacco. If you need help quitting, ask your health care provider. Do not use illegal drugs. Eating and drinking Follow a heart-healthy diet. A dietitian can help educate you about healthy food options and changes. In general, eat plenty of fruits and vegetables, lean meats, and whole grains. Avoid foods high in: ?Sugar. ?Salt (sodium). ?Saturated fats, such as processed or fatty meat. ?Trans fats, such as fried food. Use healthy cooking methods such as roasting, grilling, broiling, baking, poaching, steaming, or stir-frying. Do not drink alcohol if: ?Your health care provider tells you not to drink. ?You are , may be , or are planning to become . If you drink alcohol: ?Limit how much you have to 0 1 drink a day. ?Be aware of how much alcohol is in your drink. In the [place] one drink equals one 12 oz bottle of beer (355 mL), one 5 oz glass of wine (148 mL), or one 1 oz glass of hard liquor (44 mL). General instructions Manage any other health conditions, such as hypertension and diabetes. These conditions affect yourheart. Your health care provider may ask you to monitor your blood pressure. Ideally, your blood pressure should be below 130/80. Keep all follow-up visits as told by your health care provider. This is important. Get help right away if: You have pain in your chest, neck, ear, arm, jaw, stomach, or back that: ?Lasts more than a few minutes. ?Is recurring. ?Is not relieved by taking medicine under your tongue (sublingual nitroglycerin). You have profuse sweating without cause. You have unexplained: ?Heartburn or indigestion. ?Shortness of breath or difficulty breathing. ?Fluttering or fast heartbeat (palpitations). ?Nausea or vomiting. ?Fatigue. ?Feelings of nervousness or anxiety. ?Weakness. ?Diarrhea. You have sudden light-headedness or dizziness. You faint. You feel like hurting yourself or think about taking your own life. These symptoms may represent a serious problem that is an emergency. Do not wait to see if the symptoms will go away. Get medical help right away. Call your local emergency services (911 in the [place] Do not drive yourself to the hospital. Summary Coronary artery disease (CAD) is a condition in which the arteries that lead to the heart (coronaryarteries) become narrow or blocked. The narrowing or blockage can lead to a heart attack. Many women have chest discomfort and other common symptoms of CAD. However, women often have unusual (atypical) symptoms, such as fatigue, vomiting, weakness, or dizziness. CAD can be treated with lifestyle changes, medicines, surgery, or a combination of these treatments. This information is not intended to replace advice given to you by your health care provider. Make sure you discuss any questions you have with your health care provider. Document Released: 01/04/2013 Document Revised: 07/02/2019 Document Reviewed: 06/22/2019 [employer] Patient Education 2020 [employer]. Follow Up Care 11/06/2021 18:51:23 With:Amarilis TORRES MD [facility] Address: [address] [place], [place] [id number]- When:6 months Comments:get labs at [facility] Evaluation + Plan note Future Appointments Appointment Date:11/12/2022 06:20:00 PM Scheduled Provider:Amarilis TORRES MD Location:[facility] Appointment Type: Open Future Scheduled Tests Laboratory* Comprehensive Metabolic Panel 04/28/22 * Lipid Panel 04/28/22 [facility] Evaluation + Plan note Future Appointments Appointment Date:11/12/2022 06:20:00 PM Scheduled Provider:[facility] Appointment Date:05/13/2023 06:40:00 PM Scheduled Provider:Amarilis TORRES MD Location:[facility] Appointment Type: Open Future Scheduled Tests Laboratory* CBC w/ Auto Diff 11/11/22 * Comprehensive Metabolic Panel 11/11/22 * Lipid Panel 11/11/22 [facility] Evaluation + Plan note Future Appointments Appointment Date:05/13/2023 06:40:00 PM Scheduled Provider:[facility]RES [facility] Future App[facility]ments Appointment Date:06/06/2023 03:30:00 PM Scheduled [facility] Subsequent Appointment Date:11/11/2023 06:20:00 PM Scheduled Provider:Amarilis TORRES MD Location:[facility] Appointment Type: Open Future Scheduled Tests Laboratory* CBC w/ Auto Diff 05/13/23 * Comprehensive Metabolic Panel 05/13/23 * Lipid Panel 05/13/23 [facility] Evaluation + Plan note Future Appointments Appointment Date:12/22/2023 06:20:00 PM Scheduled Provider:Amarilis TORRES MD Location:[facility] Appointment Type: Open Future Scheduled Tests Laboratory* Giardia lamblia, Direct Detection EIA 11/11/23 * O & P Exam, Routine 11/11/23 * Rotavirus Ab 11/11/23 * Clostridium Difficile PCR 11/11/23 * Enteric Panel by PCR 11/11/23 [facility] Evaluation + Plan note Future Appointments Appointment Date:12/22/2023 06:20:00 PM Scheduled Provider:Amarilis TORRES MD Location:[facility] Appointment Type: Open Diagnostic Tests Pending * Urine Culture 11/11/23 Future Scheduled Tests Laboratory* Giardia lamblia, Direct Detection EIA 11/11/23 * O & P Exam, Routine 11/11/23 * Rotavirus Ab 11/11/23 * Clostridium Difficile PCR 11/11/23 * [facility] Appointment Date:12/22/2023 06:20:00 PM Scheduled Provider:Amarilis TORRES MD Location:[facility] Appointment Type: Open Diagnostic Tests Pending * Enteric Panel by PCR 11/12/23 * O & P Exam, Routine 11/12/23 * Giardia lamblia, Direct Detection EIA [facility] Appointment Date:06/21/2024 06:00:00 PM Scheduled Provider:Amarilis TORRES MD Location:[facility] Appointment Type: Open Future Scheduled Tests Laboratory* Prealbumin 12/22/23 * Comprehensive Metabolic Panel 12/22/23 * Lipid [facility] No data available for this section [facility] Discharge instructions No data available for this section [facility] filedocumented in this encounter [facility] filed[facility] No data available for this section [facility] [place] Summary Purpose Family History No Family History Records FoundNo Family History Records Found No data available for this section No data available for this section No data available for this section No data available for this section No Family History Records FoundNo Family History Records FoundNo Family History Records FoundNo Family History Records Found No data available for this section No Family History Records FoundNo Family History Records Found Advance Directives No Advanced Directives Records FoundLatest Code Status on File Code Status Date Activated Date Inactivated Comments Full Code 01/02/2024 5:07 AM Latest Code Status on File Code Status Date Activated Date Inactivated Comments Full Code 01/02/2024 5:07 AM 01/19/2024 8:19 PM Additional Source Comments INFORMATION SOURCE (unrecogn ized section and content) DATE CREATED AUTHOR 04/16/[address] [facility] DATE CREATED AUTHOR AUTHOR'S ORGANIZ ATION 04/16/2018 [facility] DATE CREATED AUTHOR AUTHOR'S ORGANIZ ATION 01/08/2024 [facility] DATE CREATED AUTHOR AUTHOR'S ORGANIZ ATION 01/22/2024 [facility] DATE CREATED AUTHOR AUTHOR[facility]S ORGANIZ ATION [facility] [place] DATE CREATED AUTHOR AUTHOR'S ORGANIZ ATION 03/06/2024 [facility] DATE CREATED AUTHOR AUTHOR'S ORGANIZ ATION 04/01/2024 [facility] DATE CREATED AUTHOR AUTHOR'S ORGANIZ ATION 04/06/[address] [facility] dical Specialists EPIC Care Team (unrecognized sect ion and content) [employer] Relationship Specialty Start Date End Date Amarilis Torres MD [address] [place] [address] PCP - General Family Medicine 01/02/24 [employer] Relationship Specialty Start Date End Date Amarilis Torres MD [address] [place] [address] PCP - General Family Medicine 01/02/24 Reason for Visit (unrecogniz ed section and content) Reason Onset Date Comments Hospital Follow-up 01/13/2024 FOR RECORDS PERTAINING TO PATIENTS WHO ARE OR HAVE BEEN ENROLLED IN A CHEMICAL DEPENDENCY/SUBSTANCEABUSE PROGRAM, SOME INFORMATION MAY BE OMITTED. This clinical summary was aggregated from multiple sources. Caution should be exercised in using it in the provision of clinical care. This summary normalizes information from multiple sources, and as a consequence, information in this document may materially change the coding, format and clinical context of patient data. In addition, data may be omitted in some cases. CLINICAL DECISIONS SHOULD BE BASED ON THE PRIMARY CLINICAL RECORDS. [employer] provides no warranty or guarantee of the accuracy or completeness of information in this document.
--- NOTE | 2024-04-17 15:24 | ED_ITS ---
HPI - Altered Mental Status General Chief Complaint: Altered Mental Status Stated Complaint: Confusion Time Seen by Provider: 04/17/24 15:11 Source: caregiver Mode of arrival: ambulance Limitations: language barrier and altered mental status History of Present Illness HPI narrative: This patient was brought to us by squad from a care facility. I reviewed her previous records and her daughter is here with her updating me. The were considering transferring her to an assisted care facility this week but over the last 48 hours or so she has had increasing agitation and anxiety and confusion. She suffered a severe stroke prior to and during a recent surgical procedure for carotid endarterectomy. She has not been able to speak since that stroke and she has had no ability to use her right side since the stroke. Her daughter says she is remarkably different over the last 48 hours. They thought that she might have a UTI so they gave her, they tried to give her a dose of an antibiotic today but we do not have any urine results. She is DNR CC and the family does not want any heroic measures but they are not opposed to working her up to see what the cause of her agitation is to see if there are anything that might be treated simply. Related Data Home Medications ?Medication ?Instructions ?Recorded ?Confirmed aspirin 81 mg capsule 81 mg PO DAILY 02/18/24 04/17/24 cholecalciferol (vitamin D3) 50 50 mcg PO DAILY 02/18/24 04/17/24 mcg (2,000 unit) capsule (D3-2000) diclofenac sodium 1 % topical gel 4 g topical QID 02/18/24 04/17/24 (Aspercreme Arthritis Pain) levetiracetam 100 mg/mL oral 750 mg PO Q12H 02/18/24 04/17/24 solution lidocaine 4 % topical patch 1 patch topical DAILY 02/18/24 04/17/24 (Aspercreme (lidocaine)) mirtazapine 15 mg tablet 15 mg PO DAILY 02/18/24 04/17/24 oxycodone 5 mg tablet 5 mg PO Q8H PRN pain 02/18/24 04/17/24 ticagrelor 90 mg tablet (Brilinta) 90 mg PO DAILY 02/18/24 02/18/24 acetaminophen 325 mg tablet 650 mg PO Q6H PRN fever or pain 04/17/24 04/17/24 (Non-Aspirin) atorvastatin 80 mg tablet 80 mg PO BEDTIME 04/17/24 04/17/24 baclofen 10 mg tablet 10 mg PO BID 04/17/24 04/17/24 ciprofloxacin HCl 500 mg tablet 500 mg PO BID 04/17/24 04/17/24 (Cipro) levothyroxine 75 mcg tablet 75 mcg PO DAILY 04/17/24 04/17/24 Allergies Allergy/AdvReac Type Severity Reaction Status Date / Time No Known Drug Allergies Allergy Verified 02/18/24 21:10 [facility] Medical History (Updated 04/17/24 @ 19:05 by Immanuel Aponte MD) Seizure-like activity ?R56.9 - Unspecified convulsions (ICD-10) Hyperlipidemia ?E78.5 - Hyperlipidemia, unspecified (ICD-10) HTN (hypertension) ?I10 - Essential (primary) hypertension (ICD-10) CKD stage 3a, GFR 45-59 ml/min ?N18.31 - Chronic kidney disease, stage 3a (ICD-10) Expressive aphasia ?R47.01 - Aphasia (ICD-10) CVA, old, hemiparesis ?I69.359 - Hemiplegia and hemiparesis following cerebral infarction affecting unspecified side (ICD-10) Family History (Updated 02/19/24 @ 01:24 by Noemi Garcia) Other Family history of cancer Family history of hypertension Family history of myocardial infarction Family history of stroke Social History (Updated 02/19/24 @ 01:25 by Noemi Garcia) Within the past year, how often did you have a drink containing alcohol: never Score interpretation: A score less than 3 is consistent with normal alcohol consumption. Smoking status: Never smoker Non-prescribed substance use: denies use Previous occupational history: Retired Are you now , , , , never or living with a partner: In a typical week, how many times do you talk on the telephone with family, friends, or neighbors: 3 or more times per week How often do you get together with friends or relatives: 3 or more times per week Do you think of yourself as: straight/heterosexual Gender Identity: female Exam Narrative Exam Narrative: Patient on arrival was following simple commands such as squeezing her fingers and opening her mouth. She seemed to recognize me as a physician and recognized her family. But she is lying on her side control and crying and sobbing. She is aphasic and cannot tell us if she is having any pain or difficulty breathing or chest discomfort but does not seem to be. Her vital sign noted. Her twelve- lead EKG shows sinus rhythm with some bradycardia. She does have good pulses but her blood pressure is in the 90-100 systolic range. Her skin and integument were normal with no breakdown or decubitus ulceration. Her Her lungs were clear with no wheeze rales or rhonchi. Heart sounds are regular. Her belly is soft and supple with no tenderness or bowel abdomen is not distended she does not have withdrawal to palpation. Extremities do not show any evidence of phlebitis DVT or edema. ENT does not show any evidence of infection either. Constitutional Vital Signs, click to edit/add: Last Vital Signs Temp 97.8 F 04/17/24 15:15 Pulse 58 L 04/17/24 18:41 Resp 17 04/17/24 18:41 BP 110/56 04/17/24 18:49 Pulse Ox 96 04/17/24 18:41 O2 Del Method Room Air 04/17/24 15:15 Course Vital Signs Vital signs: Vital Signs Temperature 97.8 F 04/17/24 15:15 Pulse Rate 97 H 04/17/24 15:15 Respiratory Rate 18 04/17/24 15:15 Blood Pressure 184/95 H 04/17/24 15:15 Pulse Oximetry 97 04/17/24 15:15 Oxygen Delivery Method Room Air 04/17/24 15:15 Temperature 97.8 F 04/17/24 15:15 Pulse Rate 58 L 04/17/24 18:41 Respiratory Rate 17 04/17/24 18:41 Blood Pressure 110/56 04/17/24 18:49 Pulse Oximetry 96 04/17/24 18:41 Oxygen Delivery Method Room Air 04/17/24 15:15 MDM - Altered Mental Status MDM Narrative Medical decision making narrative: This patient's had recently a massive stroke and was doing relatively stable where the family was gone transfer to assisted living but she has had a deterioration over the last 48 hours. She is DNR CC. The family confirmed that. We will do a workup on her including a CT scan of her head. She has had a previous subarachnoid hemorrhage and they did not want that treated. Here today her repeat CT scan does not show any acute findings. Her EKG did have some bradycardia but they do not want a pacemaker or transferred to a cardiology center. I will speak to the hospitalist. Lab Data Labs: Lab Results 04/17/24 04/17/24 Range/Units 15:46 15:50 WBC 9.8 (4.0-11.0) 10^3/uL RBC 4.30 (4.20-5.40) 10^6/uL Hgb 11.9 L (12.0-16.0) g/dL Hct 38.7 (36.0-48.0) % MCV 90.0 (81.0-99.0) fL MCH 27.7 (26.7-34.0) pg MCHC 30.7 (29.9-35.2) g/dL RDW 14.1 (11.0-15.0) % Plt Count 344 (150-450) 10^3/uL MPV 9.6 (9.5-13.5) fL Neut % (Auto) 84.4 H (43.0-75.0) % Lymph % (Auto) 11.9 L (20.5-60.0) % [place] % (Auto) 2.7 (1.7-12.0) % Eos % (Auto) 0.4 L (0.9-7.0) % Baso % (Auto) 0.2 (0.2-2.0) % Neut # (Auto) 8.3 H (1.4-6.5) 10^3/uL Lymph # (Auto) 1.2 (1.2-3.8) 10^3/uL [place] # (Auto) 0.3 (0.3-0.8) 10^3/uL Eos # (Auto) 0.0 (0.0-0.7) 10^3/uL Baso # (Auto) 0.0 (0.0-0.1) 10^3/uL Abs Immat Gran (auto) 0.04 H (0.00-0.03) 10^3/uL Imm/Tot Granulo (auto) 0.4 (0.0-0.5) % Sodium 145 (136-145) mmol/L Potassium 3.9 (3.5-5.1) mmol/L Chloride 110 H (98-107) mmol/L Carbon Dioxide 24.4 (21.0-32.0) mmol/L Anion Gap 14.5 BUN 18.0 (7.0-18.0) mg/dL Creatinine 1.38 H (0.55-1.02) mg/dL Est GFR ( Amer) 45 L (>=60) Est GFR (Non-Af Amer) 37 L (>=60) BUN/Creatinine Ratio 13.0 Glucose 101 (74-106) mg/dL Calcium 9.5 (8.5-10.1) mg/dL Total Bilirubin 0.5 (0.2-1.0) mg/dL AST 15 (15-37) U/L ALT 9 L (14-59) U/L Alkaline Phosphatase 112 (46-116) U/L Troponin I High Sens 23.6 (4.0-51.3) pg/mL Total Protein 6.2 L (6.4-8.2) g/dL Albumin 2.7 L (3.4-5.0) g/dL Globulin 3.5 g/dL Albumin/Globulin Ratio 0.8 Urine Color Lt. yellow (YELLOW) Urine Clarity Clear (CLEAR) Urine pH 7.0 (5.0-9.0) Ur Specific [place] 1.020 (1.005-1.025) Urine Protein 100 A (NEG/TRACE) mg/dL Urine Glucose (UA) Negative (NEGATIVE) mg/dL Urine Ketones Trace A (NEGATIVE) mg/dL Urine Occult Blood Trace-i (NEGATIVE) Urine Nitrite Negative (NEGATIVE) Urine Bilirubin Negative (NEGATIVE) Urine Urobilinogen 0.2 (0.2-1.0) EU/dL Ur Leukocyte Esterase Negative (NEGATIVE) Urine RBC 2-5 A (0-2) #/HPF Urine WBC 0-2 A (NONE SEEN) #/HPF Ur Squamous Epith Cells Rare (NONE/RARE) #/LPF Urine Crystals None seen (None Seen) #/HPF Urine Bacteria Moderate A (NONE SEEN) #/HPF Urine Casts None seen (NONE SEEN) #/LPF Urine Mucus None seen (NONE SEEN) Ur Culture Indicated? Yes Discharge Plan Discharge Chief Complaint: Altered Mental Status Clinical Impression: Altered mental status Patient Disposition: Admitted as Observation Time of Disposition Decision: 19:04 Prescriptions / Home Meds: No Action levetiracetam 100 mg/mL solution 750 mg PO Q12H mirtazapine 15 mg tablet 15 mg PO DAILY oxycodone 5 mg tablet 5 mg PO Q8H PRN (Reason: pain) Brilinta 90 mg tablet 90 mg PO DAILY Hold Instructions: Until you follow up with Neurology to discuss aspirin 81 mg capsule 81 mg PO DAILY Hold Instructions: Until you follow up with Neurology to discuss diclofenac sodium [Aspercreme Arthritis Pain] 1 % gel 4 g topical QID Rx Instructions: apply to single knee, ankle, foot; for foot includes sole/toes/top of foot cholecalciferol (vitamin D3) [D3-2000] 50 mcg (2,000 unit) capsule 50 mcg PO DAILY lidocaine [Aspercreme (lidocaine)] 4 % adhesive patch,medicated 1 patch topical DAILY Rx Instructions: may leave on for up to 12 hrs atorvastatin 80 mg tablet 80 mg PO BEDTIME levothyroxine 75 mcg tablet 75 mcg PO DAILY ciprofloxacin HCl [Cipro] 500 mg tablet 500 mg PO BID baclofen 10 mg tablet 10 mg PO BID acetaminophen [Non-Aspirin] 325 mg tablet 650 mg PO Q6H PRN (Reason: fever or pain) Print Language: Lao Referrals: Dorian Harrison MD [Primary Care Provider] - 1 week
--- NOTE | 2024-04-17 15:25 | CT_ITS ---
The [address] [address] Patient Name: CRUZ GREEN MRN: [id number] date: 1945 Sex: F Assigned Patient Location: ER Current Patient Location: ER Accession/Order Number: [id number] Exam Date: 04/17/2024 16:20 Report Date: 04/17/2024 17:37 At the request of: RAMIREZ SAEED Procedure: CT head/brain wo con EXAMINATION: CT head/brain wo con, 04/17/2024 4:20 PM EDT HISTORY: Recent fall/change mental status. COMPARISON: 02/18/24. TECHNIQUE: CT scan of the head was performed without IV contrast. CT dose reduction technique was used, including Automated Exposure Control. FINDINGS: BRAIN PARENCHYMA/CSF SPACES: Ventricles are normal in size for age. There is no hemorrhage, mass effect or midline shift. Moderate low attenuation in the white matter consistent with chronic microvascular ischemia. There is a hypodensity in the right saima. This appears unchanged. PARANASAL SINUSES: Mild bilateral ethmoid sinus mucosal thickening. SKULL BASE AND CALVARIUM: Normal. EXTRACRANIAL SOFT TISSUES: Normal. CT/CT head/brain wo con IMPRESSION: 1. No acute intracranial abnormality. 2. Atrophy and chronic white matter small vessel ischemic changes. MRI would be more sensitive for acute infarct if clinically indicated. Electronically authenticated by: TOMAS HARRISON Date: 04/17/2024 17:37
[2024-04-17] MEDS: 0.9 % SODIUM CHLORIDE 1,000 ML 1000 ML IV (15:34)
[2024-04-17] MEDS: LORAZEPAM 2 MG/ML VIAL 1 MG IM (15:34)
[2024-04-17 15:56] LABS: Basophils Percent Auto 0.2 % (0.2-2.0); Eosinophils Percent Auto 0.4 % (0.9-7.0); Hematocrit 38.7 % (36.0-48.0); Hemoglobin 11.9 g/dL (12.0-16.0); Immature Granulocytes Abs Auto 0.04 10^3/uL (0.00-0.03); Immature Granulocytes Pct Auto 0.4 % (0.0-0.5); Lymphocytes Absolute Auto 1.2 10^3/uL (1.2-3.8); Lymphocytes Percent Auto 11.9 % (20.5-60.0); Mean Corpuscular HGB Conc 30.7 g/dL (29.9-35.2); Mean Corpuscular Hemoglobin 27.7 pg (26.7-34.0); Mean Platelet Volume 9.6 fL (9.5-13.5); Monocytes Absolute Auto 0.3 10^3/uL (0.3-0.8); Monocytes Percent Auto 2.7 % (1.7-12.0); Neutrophils Absolute Auto 8.3 10^3/uL (1.4-6.5); Neutrophils Percent Auto 84.4 % (43.0-75.0); Platelet Count 344 10^3/uL (150-450); Red Cell Distribution Width 14.1 % (11.0-15.0); White Blood Count 9.8 10^3/uL (4.0-11.0)
[2024-04-17 15:58] LABS: Bilirubin Urine NEGATIVE (NEGATIVE); Blood Urine TRACE-I (NEGATIVE); Clarity Urine CLEAR (CLEAR); Color Urine LT. YELLOW (YELLOW); Glucose Urine UA NEGATIVE (NEGATIVE); Ketones Urine TRACE mg/dL (NEGATIVE); Leukocyte Esterase Urine NEGATIVE (NEGATIVE); Nitrite Urine NEGATIVE (NEGATIVE); Protein Urine 100 mg/dL (NEG/TRACE); Urobilinogen Urine 0.2 EU/dL (0.2-1.0)
[2024-04-17 16:00] LABS: Urine Microscopic Indicated YES
[2024-04-17 16:14] LABS: Bacteria Urine MODERATE #/HPF (NONE SEEN); Cast Seen? NONE SEEN #/LPF (NONE SEEN); Crystals Seen? None Seen #/HPF (None Seen); Mucus Urine NONE SEEN (NONE SEEN); Squamous Epithelial Cell Urine RARE #/LPF (NONE/RARE); Urine Culture Indicated YES; WBC Urine 0-2 #/HPF (NONE SEEN)
[2024-04-17 16:14] LABS: Alanine Aminotransferase 9 U/L (14-59); Albumin Globulin Ratio 0.8; Albumin Level 2.7 g/dL (3.4-5.0); Alkaline Phosphatase 112 U/L (46-116); Anion Gap 14.5; Aspartate Amino Transferase 15 U/L (15-37); Bilirubin Total 0.5 mg/dL (0.2-1.0); Calcium 9.5 mg/dL (8.5-10.1); Carbon Dioxide 24.4 mmol/L (21.0-32.0); Chloride 110 mmol/L (98-107); Estimated GFR (African America 45 (>=60); Estimated GFR (Non-African Ame 37 (>=60); Globulin 3.5 g/dL; Glucose 101 mg/dL (74-106); Potassium 3.9 mmol/L (3.5-5.1); Sodium 145 mmol/L (136-145); Total Protein 6.2 g/dL (6.4-8.2); Troponin I High Sensitivity 23.6 pg/mL (4.0-51.3)
--- NOTE | 2024-04-17 17:56 | XR_ITS ---
The [address] [address] Patient Name: CRUZ GREEN MRN: [id number] date: 1945 Sex: F Assigned Patient Location: ER Current Patient Location: ED.MAIN Accession/Order Number: [id number] Exam Date: 04/17/2024 18:10 Report Date: 04/17/2024 19:28 At the request of: RAMIREZ SAEED Procedure: XR chest 1V EXAM: XR chest 1V COMPARISON: None available. CLINICAL INDICATION: Change in mental status. FINDINGS: Median sternotomy wires. Patient is rotated, limiting evaluation of the cardiomediastinal silhouette. No focal consolidation. No pleural effusion. No pneumothorax. No evidence of acute osseous abnormality. XR/XR chest 1V IMPRESSION: 1. Patient is rotated. 2. No acute findings. Electronically authenticated by: VINITA LYLES Date: 04/17/2024 19:28
--- NOTE | 2024-04-17 18:37 | ECG_ITS ---
The [facility] Test Date: 2024-04-17 Pat Name: CRUZ GREEN Department: Room: - Gender: Female [employer]: : 1945 Requested By: [id number] Order Number: [id number] Reading MD: AVIVA GARCIA Measurements Intervals [place] Rate: 44 P: 60 CT: 174 QRS: 78 QRSD: 98 T: 136 QT: 504 QTc: 456 Interpretive Statements 1102 Sinus arrhythmia 1130 Sinus bradycardia 4564 Twave abnormality, possible lateral ischemia 9150 abnormal ECG No previous ECG available for comparison Electronically Signed On 04-18-2024 7:00:49 EDT by AVIVA GARCIA
--- NOTE | 2024-04-17 19:53 | PC.NURSE ---
report called to [facility]
[2024-04-17 19:57] LABS: Troponin I High Sensitivity 41.6 pg/mL (4.0-51.3)
--- OUTSIDE RECORDS SUMMARY | 2024-04-17 20:07 | XMS_ITS | CCD ---
Author Organization [facility] Care Team Providers Care Stitch Burnisher Name Role Phone UNKNOWN, PCP Unavailable Unavailable [...] SANTANA Consulting Unavailable COTTOJACLYNEL Consulting Unavailable AUDELIA JOAQUÍN Consulting Unavailable DORYS ROCKWELL Consulting Unavailable CELESTINO COTTO Attending Unavailable JACLYN COTTOEL Referring Unavailable KEANU RHODES Attending Unavailable Amarilis TORRES Primary Care Physician [phone] Amarilis TORRES Admitting Unavailable Amarilis TORRES Attending Unavailable Christiano Castillo Consulting Unavailable Daniel Brown Admitting Unavailable Daniel Brown Attending Unavailable MD Christiano Castillo Consulting Unavailable Baldwin, Christiano Consulting Unavailable Baldwin, Christiano Consulting Unavailable Baldwin, Christiano Consulting Unavailable Baldwin, Christiano Consulting Unavailable Baldwin, Christiano Consulting Unavailable Baldwin, Christiano Consulting Unavailable Baldwin, Christiano Consulting Unavailable Benjamín Ibanez Attending Unavailable [...] Medication Allergies] Propensity to adverse reactions (disorder) [facility] Repository Medications Current Medications Medication Drug Class(es) [...] tab(s), Refills(s) 1, Pharmacy: [facility] ([email or web address] ), 142.2, cm, 05/13/23 18:52:00 [...] tab(s), Refills(s) 1, Pharmacy: [facility] ([email or web address] ), 142.2, cm, 05/13/23 18:52:00 [...] tab(s), Refills(s) 1, Pharmacy: [facility] ([facility] ), 142.2, cm, 05/13/23 18:52:00 EDT, Height/Length Dosing, 55.4, kg, 05/13/23 18:52:00 EDT, Weight Dosing Start Date: 05/13/23 Status: Ordered Start: 11-12-2022 take 1 tablet by denisse th once daily potassium chloride 20 mEq ER Tab 20 mEq = 1 tab(s), Oral, Daily, # 90 tab(s), Refills(s) 1, Pharmacy: [facility] ([facility] ), 142.2, cm, 11/12/22 18:20:00 [...] Coronary atherosclerosis; Translations: [Atherosclerotic heart disease of [place] coronary artery without angina pectoris] Onset: 2 [...] source) Long-term current use of aspirin; Translations: [FCI (current) use of aspirin] Episodic Other aftercare (1 source) Long-term current use of drug therapy; Translations: [Other watermelon inspector (current) drug therapy] Episodic Other and ill-defined [...] Unclassified (1 source) 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 Prealbuminon 02-08-2024 Prealbumin [Mass/Vol] 20.6 mg/dL Normal 20.0-40.0 [facility] Comment on above: Performed By: #### C BCWD #### [facility] [address] [place] [id number] Culture, Urineon 02-07-2024 Culture, Urine ORDER#: [id number] OR DERED BY: BELEN HAQUE SOURCE: Urine Clean Catch Urine COLLECTED: 02/07/24 16:00 ANTIBIOTICS AT EARNESTINE.: RECEIVED : 02/07/24 16:00 Culture, Urine FINAL 02/09/24 11:04 Cult,Urine: NO SIGNIFICANT GROWTH Performed at [facility] [address] [place] [address] Normal [facility] Comment on above: Performed By: #### C BCWD #### [facility] [address] [place] [id number] Urinalysis, reflex to micros copicon 02-07-2024 Bilirubin Ql (U) Negative Normal Negative [facility] Comment on above: Performed By: #### C BCWD #### [facility] [address] [place] [address] Clarity (U) Clear Normal Clear [facility] Comment on above: Performed By: #### C BCWD #### [facility] [address] [place] [address] Color (U) Yellow Normal Straw/Inyo [facility] Comment on above: Performed By: #### C BCWD #### [facility] [address] [place] [address] Glucose Ql (U) Negative Normal Negative [facility] Comment on above: Performed By: #### C BCWD #### [facility] [address] [place] [address] Hemoglobin Ql (U) Negative Normal Negative [facility] Comment on above: Performed By: #### C BCWD #### [facility] [address] [place] [address] Ketones Ql (U) Negative Normal Negative [facility] Comment on above: Performed By: #### C BCWD #### [facility] [address] [place] [address] Leukocyte esterase Test strip Ql (U) SMALL Abnormal Negative [facility] Comment on above: Performed By: #### C BCWD #### [facility] [address] [place] [address] Nitrite Ql (U) Negative Normal Negative [facility] Comment on above: Performed By: #### C BCWD #### [facility] [address] [place] [address] pH (U) 5.0 [pH] Normal 5.0-9.0 [facility] Comment on above: Performed By: #### C BCWD #### [facility] [address] [place] [address] Protein Ql (U) Negative Normal Negative [facility] Comment on above: Performed By: #### C BCWD #### [facility] [address] [place] [address] Specific gravity (U) [Rel density] 1.020 Normal 1.005-1.03 [facility] Comment on above: Performed By: #### C BCWD #### [facility] [address] [place] [address] Urobilinogen Qn (U) 0.2 {Chan'U}/dL Normal < 2.0 [facility] Comment on above: Performed By: #### C BCWD #### [facility] [address] [place] [address] Urine Microscopicon 02-07-20 24 Urine Bacteria RARE Abnormal Negative [facility] Comment on above: Performed By: #### U YOUSIF #### [facility] [address] [place] [address] Urine Epithelial Cells Auto 0-2 Normal 0-5 [facility] Comment on above: Performed By: #### U YOUSIF #### [facility] [address] [place] [address] Urine Hyaline Casts Auto 1-3 Normal 0-5 [facility] Comment on above: Performed By: #### U YOUSIF #### [facility] [address] [place] [address] Urine RBC Auto 0-2 Normal 0-5 [facility] Comment on above: Performed By: #### U YOUSIF #### [facility] [address] [place] [address] Urine WBC Auto 20-50 Abnormal 0-5 [facility] Comment on above: Performed By: #### U YOUSIF #### [facility] [address] [place] [address] XR ABDOMEN (KUB) (SINGLE AP VIEW)on 02-07-2024 [...] Donny Valadez MD 02/07/24 Final result Normal [facility] Basic Metabolic Panelon 04-1 Anion gap [Moles/Vol] 9 mmol/L Normal 9-15 [facility] Comment on above: Performed By: #### B MP #### [facility] [address] [place] [address] Calcium [Mass/Vol] 9.2 mg/dL Normal 8.5-9.9 [facility] Comment on above: Performed By: #### B MP #### [facility] [address] [place] [address] Chloride [Moles/Vol] 113 mmol/L Critically high 95-107 [facility] Comment on above: Performed By: #### B MP #### [facility] [address] [place] [address] CO2 [Moles/Vol] 17 mmol/L Low 20-31 [facility] Comment on above: Performed By: #### B MP #### [facility] [address] [place] [address] Creatinine [Mass/Vol] 1.03 mg/dL Critically high 0.50-0.90 [facility] Comment on above: Performed By: #### B MP #### [facility] [address] [place] [address] GFR 55.0 Low >60 [facility] Comment on above: Result Comment: Lesley [...] secretion. Performed By: #### B MP #### [facility] [address] [place] [address] Glucose [Mass/Vol] 77 mg/dL Normal 70-99 [facility] Comment on above: Performed By: #### B MP #### [facility] [address] [place] [address] Potassium [Moles/Vol] 4.8 mmol/L Normal 3.4-4.9 [facility] Comment on above: Performed By: #### B MP #### [facility] [address] [place] [address] Sodium [Moles/Vol] 139 mmol/L Normal 135-144 [facility] Comment on above: Performed By: #### B MP #### [facility] [address] [place] [address] Urea nitrogen [Mass/Vol] 35 mg/dL Critically high 8-23 [facility] Comment on above: Performed By: #### B MP #### [facility] [address] [place] [address] Basic Metabolic Panelon 04-1 0-2023 Anion gap [Moles/Vol] 11 mmol/L Normal 9-15 [facility] Comment on above: Performed By: #### B MP #### [facility] [address] [place] [address] Calcium [Mass/Vol] 9.7 mg/dL Normal 8.5-9.9 [facility] Comment on above: Performed By: #### B MP #### [facility] [address] [place] [address] Chloride [Moles/Vol] 110 mmol/L Critically high 95-107 [facility] Comment on above: Performed By: #### B MP #### [facility] [address] [place] [address] CO2 [Moles/Vol] 18 mmol/L Low 20-31 [facility] Comment on above: Performed By: #### B MP #### [facility] [address] [place] [address] Creatinine [Mass/Vol] 1.17 mg/dL Critically high 0.50-0.90 [facility] Comment on above: Performed By: #### B MP #### [facility] [address] [place] [address] GFR 47.2 Low >60 [facility] Comment on above: Result Comment: Pedi [...] secretion. Performed By: #### B MP #### [facility] [address] [place] [address] Glucose [Mass/Vol] 85 mg/dL Normal 70-99 [facility] Comment on above: Performed By: #### B MP #### [facility] [address] [place] [address] Potassium [Moles/Vol] 4.5 mmol/L Normal 3.4-4.9 [facility] Comment on above: Performed By: #### B MP #### [facility] [address] [place] [address] Sodium [Moles/Vol] 139 mmol/L Normal 135-144 [facility] Comment on above: Performed By: #### B MP #### [facility] [address] [place] [address] Urea nitrogen [Mass/Vol] 39 mg/dL Critically high 8-23 [facility] Comment on above: Performed By: #### B MP #### [facility] [address] [place] [address] Basic Metabolic Panelon 04-0 -2023 Anion gap [Moles/Vol] 8 mmol/L Low 9-15 [facility] Comment on above: Performed By: #### B MP #### [facility] [address] [place] [address] Calcium [Mass/Vol] 10.0 mg/dL Critically high 8.5-9.9 [facility] Comment on above: Performed By: #### B MP #### [facility] [address] [place] [address] Chloride [Moles/Vol] 111 mmol/L Critically high 95-107 [facility] Comment on above: Performed By: #### B MP #### [facility] [address] [place] [address] CO2 [Moles/Vol] 18 mmol/L Low 20-31 [facility] Comment on above: Performed By: #### B MP #### [facility] [address] [place] [address] Creatinine [Mass/Vol] 1.14 mg/dL Critically high 0.50-0.90 [facility] Comment on above: Performed By: #### B MP #### [facility] [address] [place] [address] GFR 48.7 Low >60 [facility] Comment on above: Result Comment: Pedi [...] secretion. Performed By: #### B MP #### [facility] [address] [place] [address] Glucose [Mass/Vol] 84 mg/dL Normal 70-99 [facility] Comment on above: Performed By: #### B MP #### [facility] [address] [place] [address] Potassium [Moles/Vol] 5.1 mmol/L Critically high 3.4-4.9 [facility] Comment on above: Performed By: #### B MP #### [facility] [address] [place] [address] Sodium [Moles/Vol] 137 mmol/L Normal 135-144 [facility] Comment on above: Performed By: #### B MP #### [facility] [address] [place] [address] Urea nitrogen [Mass/Vol] 38 mg/dL Critically high 8-23 [facility] Comment on above: Performed By: #### B MP #### [facility] [address] [place] [address] CBC With Platelet and Differ entialon 02-03-2024 Basophils (Bld) [#/Vol] 0.0 10*3/uL Normal 0.0-0.2 [facility] Comment on above: Performed By: #### C BCWD #### [facility] [address] [place] [address] Basophils/100 WBC (Bld) 0.4 % Normal [facility] Comment on above: Performed By: #### C BCWD #### [facility] [address] [place] [address] Eosinophils (Bld) [#/Vol] 0.2 10*3/uL Normal 0.0-0.7 [facility] Comment on above: Performed By: #### C BCWD #### [facility] [address] [place] [address] Eosinophils/100 WBC (Bld) 4.0 % Normal [facility] Comment on above: Performed By: #### C BCWD #### [facility] [address] [place] [address] Erythrocyte distribution width (RBC) [Ratio] 18.2 % Critically high 11.5-14.5 [facility] Comment on above: Performed By: #### C BCWD #### [facility] [address] [place] [address] Hematocrit (Bld) [Volume fraction] 36.7 % Low 37.0-47.0 [facility] Comment on above: Performed By: #### C BCWD #### [facility] [address] [place] [address] Hemoglobin (Bld) [Mass/Vol] 11.3 g/dL Low 12.0-16.0 [facility] Comment on above: Performed By: #### C BCWD #### [facility] [address] [place] [address] Lymphocytes (Bld) [#/Vol] 1.3 10*3/uL Normal 1.0-4.8 [facility] Comment on above: Performed By: #### C BCWD #### [facility] [address] [place] [address] Lymphocytes/100 WBC (Bld) 24.8 % Normal [facility] Comment on above: Performed By: #### C BCWD #### [facility] [address] [place] [address] MCH (RBC) [Entitic mass] 29.0 pg Normal 27.0-31.3 [facility] Comment on above: Performed By: #### C BCWD #### [facility] [address] [place] [address] MCHC 30.8 % Low 33.0-37.0 [facility] Comment on above: Performed By: #### C BCWD #### [facility] [address] [place] [address] MCV (RBC) [Entitic vol] 94.3 fL Normal 79.4-94.8 [facility] Comment on above: Performed By: #### C BCWD #### [facility] [address] [place] [address] Monocytes (Bld) [#/Vol] 0.4 10*3/uL Normal 0.2-0.8 [facility] Comment on above: Performed By: #### C BCWD #### [facility] [address] [place] [address] Monocytes/100 WBC (Bld) 8.0 % Normal [facility] Comment on above: Performed By: #### C BCWD #### [facility] [address] [place] [address] Neutrophils (Bld) [#/Vol] 3.3 10*3/uL Normal 1.4-6.5 [facility] Comment on above: Performed By: #### C BCWD #### [facility] [address] [place] [address] Neutrophils/100 WBC (Bld) 62.4 % Normal [facility] Comment on above: Performed By: #### C BCWD #### [facility] [address] [place] [address] Platelets (Bld) [#/Vol] 220 10*3/uL Normal 130-400 [facility] Comment on above: Performed By: #### C BCWD #### [facility] [address] [place] [address] RBC (Bld) [#/Vol] 3.89 10*6/uL Low 4.20-5.40 [facility] Comment on above: Performed By: #### C BCWD #### [facility] [address] [place] [address] WBC (Bld) [#/Vol] 5.2 10*3/uL Normal 4.8-10.8 [facility] Comment on above: Performed By: #### C BCWD #### [facility] [address] [place] [address] Culture, Urineon 02-02-2024 Culture, Urine ORDER#: [id number] OR DERED BY: BELEN HAQUE SOURCE: Urine Clean Catch Urine COLLECTED: 02/02/24 06:50 ANTIBIOTICS AT EARNESTINE.: RECEIVED : 02/03/24 06:38 Culture, Urine FINAL 02/04/24 10:13 Cult,Urine: NO SIGNIFICANT GROWTH Performed at [address] [address] Normal [facility] Comment on above: Performed By: #### C BCWD #### [facility] [address] [place] [address] Urinalysis, reflex to micros copicon 02-02-2024 Bilirubin Ql (U) Negative Normal Negative [facility] Comment on above: Performed By: #### B MP #### [facility] [address] [place] [address] Clarity (U) Clear Normal Clear [facility] Comment on above: Performed By: #### B MP #### [facility] [address] [place] [address] Color (U) Yellow Normal Straw/Inyo [facility] Comment on above: Performed By: #### B MP #### [facility] [address] [place] [address] Glucose Ql (U) Negative Normal Negative [facility] Comment on above: Performed By: #### B MP #### [facility] [address] [place] [address] Hemoglobin Ql (U) Negative Normal Negative [facility] Comment on above: Performed By: #### B MP #### [facility] [address] [place] [address] Ketones Ql (U) Negative Normal Negative [facility] Comment on above: Performed By: #### B MP #### [facility] [address] [place] [address] Leukocyte esterase Test strip Ql (U) Negative Normal Negative [facility] Comment on above: Performed By: #### B MP #### [facility] [address] [place] [address] Nitrite Ql (U) Negative Normal Negative [facility] Comment on above: Performed By: #### B MP #### [facility] [address] [place] [address] pH (U) 5.0 [pH] Normal 5.0-9.0 [facility] Comment on above: Performed By: #### B MP #### [facility] [address] [place] [address] Protein Ql (U) Negative Normal Negative [facility] Comment on above: Performed By: #### B MP #### [facility] [address] [place] [address] Specific gravity (U) [Rel density] 1.026 Normal 1.005-1.03 [facility] Comment on above: Performed By: #### B MP #### [facility] [address] [place] [address] Urobilinogen Qn (U) 0.2 {Chan'U}/dL Normal < 2.0 [facility] Comment on above: Performed By: #### B MP #### [facility] [address] [place] [address] Thyroid Peroxidase(TPO) Abon 01-27-2024 Thyroid Peroxidase(TPO) Ab <4.0 Normal 0.0-25.0 [facility] Comment on above: Result Comment: Reference Range: <25.0 Negative 25.0-35.0 Equivocal >35.0 Positive When results are Equivocal, it is recommended to retest after 8-12 weeks. Performed at [facility], [address] [place] [id number] . Thyroxine Freeon 01-26-2024 Thyroxine Free 0.83 ng/dL Low 0.84-1.68 [facility] Comment on above: Performed By: #### F RT4 #### [facility] [address] [place] [address] Basic Metabolic Panelon 03-3 Anion gap [Moles/Vol] 9 mmol/L Normal 9-15 [facility] Comment on above: Performed By: #### B MP #### [facility] [address] [place] [address] Calcium [Mass/Vol] 9.6 mg/dL Normal 8.5-9.9 [facility] Comment on above: Performed By: #### B MP #### [facility] [address] [place] [address] Chloride [Moles/Vol] 107 mmol/L Normal 95-107 [facility] Comment on above: Performed By: #### B MP #### [facility] [address] [place] [address] CO2 [Moles/Vol] 23 mmol/L Normal 20-31 [facility] Comment on above: Performed By: #### B MP #### [facility] [address] [place] [address] Creatinine [Mass/Vol] 1.22 mg/dL Critically high 0.50-0.90 [facility] Comment on above: Performed By: #### B MP #### [facility] [address] [place] [address] GFR 44.9 Low >60 [facility] Comment on above: Result Comment: Pedi [...] secretion. Performed By: #### B MP #### [facility] [address] [place] [address] Glucose [Mass/Vol] 107 mg/dL Critically high 70-99 [facility] Comment on above: Performed By: #### B MP #### [facility] [address] [place] [address] Potassium [Moles/Vol] 4.9 mmol/L Normal 3.4-4.9 [facility] Comment on above: Performed By: #### B MP #### [facility] [address] [place] [address] Sodium [Moles/Vol] 139 mmol/L Normal 135-144 [facility] Comment on above: Performed By: #### B MP #### [facility] [address] [place] [address] Urea nitrogen [Mass/Vol] 19 mg/dL Normal 8-23 [facility] Comment on above: Performed By: #### B MP #### [facility] [address] [place] [address] Basic Metabolic Panelon 03-3 0-2023 Anion gap [Moles/Vol] 10 mmol/L Normal 9-15 [facility] Comment on above: Performed By: #### B MP #### [facility] [address] [place] [address] Calcium [Mass/Vol] 9.7 mg/dL Normal 8.5-9.9 [facility] Comment on above: Performed By: #### B MP #### [facility] [address] [place] [address] Chloride [Moles/Vol] 107 mmol/L Normal 95-107 [facility] Comment on above: Performed By: #### B MP #### [facility] [address] [place] [address] CO2 [Moles/Vol] 23 mmol/L Normal 20-31 [facility] Comment on above: Performed By: #### B MP #### [facility] [address] [place] [address] Creatinine [Mass/Vol] 1.22 mg/dL Critically high 0.50-0.90 [facility] Comment on above: Performed By: #### B MP #### [facility] [address] [place] [address] GFR 44.9 Low >60 [facility] Comment on above: Result Comment: Lesley [...] secretion. Performed By: #### B MP #### [facility] [address] [place] [address] Glucose [Mass/Vol] 81 mg/dL Normal 70-99 [facility] Comment on above: Performed By: #### B MP #### [facility] [address] [place] [address] Potassium [Moles/Vol] 5.1 mmol/L Critically high 3.4-4.9 [facility] Comment on above: Performed By: #### B MP #### [facility] [address] [place] [address] Sodium [Moles/Vol] 140 mmol/L Normal 135-144 [facility] Comment on above: Performed By: #### B MP #### [facility] [address] [place] [address] Urea nitrogen [Mass/Vol] 17 mg/dL Normal 8-23 [facility] Comment on above: Performed By: #### B MP #### [facility] [address] [place] [address] CBC With Platelet and Differ entialon 01-24-2024 Basophils (Bld) [#/Vol] 0.0 10*3/uL Normal 0.0-0.2 [facility] Comment on above: Performed By: #### C BCWD #### [facility] [facility] [address] [place] [address] Basophils/100 WBC (Bld) 0.4 % Normal [facility] Comment on above: Performed By: #### C BCWD #### [facility] [address] [place] [address] Eosinophils (Bld) [#/Vol] 0.2 10*3/uL Normal 0.0-0.7 [facility] Comment on above: Performed By: #### C BCWD #### [facility] [address] [place] [address] Eosinophils/100 WBC (Bld) 2.6 % Normal [facility] Comment on above: Performed By: #### C BCWD #### [facility] [address] [place] [address] Erythrocyte distribution width (RBC) [Ratio] 18.8 % Critically high 11.5-14.5 [facility] Comment on above: Performed By: #### C BCWD #### [facility] [address] [place] [address] Hematocrit (Bld) [Volume fraction] 39.1 % Normal 37.0-47.0 [facility] Comment on above: Performed By: #### C BCWD #### [facility] [address] [place] [address] Hemoglobin (Bld) [Mass/Vol] 11.8 g/dL Low 12.0-16.0 [facility] Comment on above: Performed By: #### C BCWD #### [facility] [address] [place] [address] Lymphocytes (Bld) [#/Vol] 1.0 10*3/uL Normal 1.0-4.8 [facility] Comment on above: Performed By: #### C BCWD #### [facility] [address] [place] [address] Lymphocytes/100 WBC (Bld) 14.0 % Normal [facility] Comment on above: Performed By: #### C BCWD #### [facility] [address] [place] [address] MCH (RBC) [Entitic mass] 28.2 pg Normal 27.0-31.3 [facility] Comment on above: Performed By: #### C BCWD #### [facility] [address] [place] [address] MCHC 30.2 % Low 33.0-37.0 [facility] Comment on above: Performed By: #### C BCWD #### [facility] [address] [place] [address] MCV (RBC) [Entitic vol] 93.5 fL Normal 79.4-94.8 [facility] Comment on above: Performed By: #### C BCWD #### [facility] [address] [place] [address] Monocytes (Bld) [#/Vol] 0.6 10*3/uL Normal 0.2-0.8 [facility] Comment on above: Performed By: #### C BCWD #### [facility] [address] [place] [address] Monocytes/100 WBC (Bld) 7.9 % Normal [facility] Comment on above: Performed By: #### C BCWD #### [facility] [address] [place] [address] Neutrophils (Bld) [#/Vol] 5.4 10*3/uL Normal 1.4-6.5 [facility] Comment on above: Performed By: #### C BCWD #### [facility] [address] [place] [address] Neutrophils/100 WBC (Bld) 74.7 % Normal [facility] Comment on above: Performed By: #### C BCWD #### [facility] [address] [place] [address] Platelets (Bld) [#/Vol] 322 10*3/uL Normal 130-400 [facility] Comment on above: Performed By: #### C BCWD #### [facility] [address] [place] [address] RBC (Bld) [#/Vol] 4.18 10*6/uL Low 4.20-5.40 [facility] Comment on above: Performed By: #### C BCWD #### [facility] [address] [place] [address] WBC (Bld) [#/Vol] 7.2 10*3/uL Normal 4.8-10.8 [facility] Comment on above: Performed By: #### C BCWD #### [facility] [address] [place] [address] TSH w/out Reflexon TSH w/out Reflex 45.450 uIU/mL Critically high 0.440-3.86 [facility] Comment on above: Performed By: #### T SH #### [facility] [address] [place] [address] Basic Metabolic Panelon 12-26 Anion gap [Moles/Vol] 9 mmol/L Normal 9-15 [facility] Comment on above: Order Comment: Erin wills has been rescheduled by [facility] at 01/21/2024 08:53 Reason: Pt care Collection has been rescheduled by [facility] at 01/21/2024 09:12 Reason: Patient not in room Performed By: #### B MP #### [facility] [address] [place] [address] Calcium [Mass/Vol] 9.9 mg/dL Normal 8.5-9.9 [facility] Comment on above: Order Comment: Erin ction has been rescheduled by GONMI at 01/21/2024 08:53 Reason: Pt care Collection has been rescheduled by [facility] at 01/21/2024 09:12 Reason: Patient not in room Performed By: #### B MP #### [facility] [address] [place] [address] Chloride [Moles/Vol] 102 mmol/L Normal 95-107 [facility] Comment on above: Order Comment: Erin wills has been rescheduled by GONMI at 01/21/2024 08:53 Reason: Pt care Collection has been rescheduled by [facility] at 01/21/2024 09:12 Reason: Patient not in room Performed By: #### B MP #### [facility] [address] [place] [address] CO2 [Moles/Vol] 24 mmol/L Normal 20-31 [facility] Comment on above: Order Comment: Erin wills has been rescheduled by [facility]ONMI at 01/21/2024 08:53 Reason: Pt care Collection has been rescheduled by [facility] at 01/21/2024 09:12 Reason: Patient not in room Performed By: #### B MP #### [facility] [address] [facility] [address] Creatinine [Mass/Vol] 0.85 mg/dL Normal 0.50-0.90 [facility] Comment on above: Order Comment: Erin wills has been rescheduled by [facility]ON[facility] at 01/21/2024 08:53 Reason: Pt care Collection has been rescheduled by [facility] at 01/21/2024 09:12 Reason: Patient not in room Performed By: #### B MP #### [facility] [address] [facility] [address] GFR 69.3 Normal >60 [facility] Comment on above: Order Comment: Erin [...] secretion. Performed By: #### B MP #### [facility] [address] [place] [address] Glucose [Mass/Vol] 93 mg/dL Normal 70-99 [facility] Comment on above: Order Comment: Erin wills has been rescheduled by [facility]ON[facility] at 01/21/2024 08:53 Reason: Pt care Collection has been rescheduled by [facility] at 01/21/2024 09:12 Reason: Patient not in room Performed By: #### B MP #### [facility] [address] [place] [address] Potassium [Moles/Vol] 4.6 mmol/L Normal 3.4-4.9 [facility] Comment on above: Order Comment: Erin wills has been rescheduled by [facility]ON[facility] at 01/21/2024 08:53 Reason: Pt care Collection has been rescheduled by [facility] at 01/21/2024 09:12 Reason: Patient not in room Performed By: #### B MP #### [facility] [address] [place] [address] Sodium [Moles/Vol] 135 mmol/L Normal 135-144 [facility] Comment on above: Order Comment: Erin wills has been rescheduled by [facility] at 01/21/2024 08:53 Reason: Pt care Collection has been rescheduled by [facility] at 01/21/2024 09:12 Reason: Patient not in room Performed By: #### B MP #### [facility] [address] [place] [address] Urea nitrogen [Mass/Vol] 14 mg/dL Normal 8-23 [facility] Comment on above: Order Comment: Erin wills has been rescheduled by [facility]ON[facility] at 01/21/2024 08:53 Reason: Pt care Collection has been rescheduled by [facility] at 01/21/2024 09:12 Reason: Patient not in room Performed By: #### B MP #### [facility] [address] [place] [address] CBC With Platelet and Differ entialon 01-21-2024 Basophils (Bld) [#/Vol] 0.0 10*3/uL Normal 0.0-0.2 [facility] Comment on above: Order Comment: Erin wills has been rescheduled by [facility] at 01/21/2024 08:53 Reason: PtcareCollection has been rescheduled by [facility] at 01/21/2024 09:12 Reason:Patient not in room Performed By: #### C BCWD #### [facility] [address] [place] [address] Basophils/100 WBC (Bld) 0.4 % Normal [facility] Comment on above: Order Comment: Erin wills has been rescheduled by [facility] at 01/21/2024 08:53 Reason: PtcareCollection has been rescheduled by [facility] at 01/21/2024 09:12 Reason:Patient not in room Performed By: #### C BCWD #### [facility] [address] [facility] [place] [address] Eosinophils (Bld) [#/Vol] 0.3 10*3/uL Normal 0.0-0.7 [facility] Comment on above: Order Comment: Erin wills has been rescheduled by [facility]ONMI at 01/21/2024 08:53 Reason: PtcareCollection has been rescheduled by [facility] at 01/21/2024 09:12 Reason:Patient not in room Performed By: #### C BCWD #### [facility] [address] [place] [address] Eosinophils/100 WBC (Bld) 3.1 % Normal [facility] Comment on above: Order Comment: Erin wills has been rescheduled by [facility]ONMI at 01/21/2024 08:53 Reason: PtcareCollection has been rescheduled by [facility] at 01/21/2024 09:12 Reason:Patient not in room Performed By: #### C BCWD #### [facility] [address] [facility] [place] [address] Erythrocyte distribution width (RBC) [Ratio] 18.7 % Critically high 11.5-14.5 [facility] Comment on above: Order Comment: Erin ction has been rescheduled by GONMI at 01/21/2024 08:53 Reason: PtcareCollection has been rescheduled by [facility] at 01/21/2024 09:12 Reason:Patient not in room Performed By: #### C BCWD #### [facility] [address] [place] [address] Hematocrit (Bld) [Volume fraction] 39.9 % Normal 37.0-47.0 [facility] Comment on above: Order Comment: Erin ction has been rescheduled by GONMI at 01/21/2024 08:53 Reason: PtcareCollection has been rescheduled by [facility] at 01/21/2024 09:12 Reason:Patient not in room Performed By: #### C BCWD #### [facility] [address] [facility] [address] Hemoglobin (Bld) [Mass/Vol] 12.5 g/dL Normal 12.0-16.0 [facility] Comment on above: Order Comment: Erin wills has been rescheduled by [facility]ONMI at 01/21/2024 08:53 Reason: PtcareCollection has been rescheduled by [facility]ON[facility] at 01/21/2024 09:12 Reason:Patient not in room Performed By: #### C BCWD #### [facility] [address] [place] [address] Lymphocytes (Bld) [#/Vol] 1.1 10*3/uL Normal 1.0-4.8 [facility] Comment on above: Order Comment: Erin wills has been rescheduled by [facility]ONMI at 01/21/2024 08:53 Reason: PtcareCollection has been rescheduled by [facility] at 01/21/2024 09:12 Reason:Patient not in room Performed By: #### C BCWD #### [facility] [address] [place] [address] Lymphocytes/100 WBC (Bld) 12.7 % Normal [facility] Comment on above: Order Comment: Erin ction has been rescheduled by GONMI at 01/21/2024 08:53 Reason: PtcareCollection has been rescheduled by [facility]ONMI at 01/21/2024 09:12 Reason:Patient not in room Performed By: #### C BCWD #### [facility] [address] [place] [address] MCH (RBC) [Entitic mass] 28.5 pg Normal 27.0-31.3 [facility] Comment on above: Order Comment: Erin ction has been rescheduled by GONMI at 01/21/2024 08:53 Reason: PtcareCollection has been rescheduled by [facility] at 01/21/2024 09:12 Reason:Patient not in room Performed By: #### C BCWD #### [facility] [address] [place] [address] MCHC 31.3 % Low 33.0-37.0 [facility] Comment on above: Order Comment: Erin ction has been rescheduled by GONMI at 01/21/2024 08:53 Reason: PtcareCollection has been rescheduled by [facility]MI at 01/21/2024 09:12 Reason:Patient not in room Performed By: #### C BCWD #### [facility] [address] [facility] [place] [address] MCV (RBC) [Entitic vol] 91.1 fL Normal 79.4-94.8 [facility] Comment on above: Order Comment: Erin ction has been rescheduled by GONMI at 01/21/2024 08:53 Reason: PtcareCollection has been rescheduled by [facility]ONMI at 01/21/2024 09:12 Reason:Patient not in room Performed By: #### C BCWD #### [facility] [address] [facility] [place] [address] Monocytes (Bld) [#/Vol] 0.6 10*3/uL Normal 0.2-0.8 [facility] Comment on above: Order Comment: Erin ction has been rescheduled by GONMI at 01/21/2024 08:53 Reason: PtcareCollection has been rescheduled by [facility]ONMI at 01/21/2024 09:12 Reason:Patient not in room Performed By: #### C BCWD #### [facility] [address] [place] [address] Monocytes/100 WBC (Bld) 7.7 % Normal [facility] Comment on above: Order Comment: Erin ction has been rescheduled by GONMI at 01/21/2024 08:53 Reason: PtcareCollection has been rescheduled by [facility]ONMI at 01/21/2024 09:12 Reason:Patient not in room Performed By: #### C BCWD #### [facility] [address] [facility] [place] [address] Neutrophils (Bld) [#/Vol] 6.2 10*3/uL Normal 1.4-6.5 [facility] Comment on above: Order Comment: Erin ction has been rescheduled by GONMI at 01/21/2024 08:53 Reason: PtcareCollection has been rescheduled by [facility]ONMI at 01/21/2024 09:12 Reason:Patient not in room Performed By: #### C BCWD #### [facility] [address] [place] [address] Neutrophils/100 WBC (Bld) 75.3 % Normal [facility] Comment on above: Order Comment: Erin ction has been rescheduled by GONMI at 01/21/2024 08:53 Reason: PtcareCollection has been rescheduled by GONMI at 01/21/2024 09:12 Reason:Patient not in room Performed By: #### C BCWD #### [facility] [address] [place] [address] Platelets (Bld) [#/Vol] 359 10*3/uL Normal 130-400 [facility] Comment on above: Order Comment: Erin ction has been rescheduled by GONMI at 01/21/2024 08:53 Reason: PtcareCollection has been rescheduled by GONMI at 01/21/2024 09:12 Reason:Patient not in room Performed By: #### C BCWD #### [facility] [address] [place] [address] RBC (Bld) [#/Vol] 4.38 10*6/uL Normal 4.20-5.40 [facility] Comment on above: Order Comment: Colle ction has been rescheduled by GONMI at 01/21/2024 08:53 Reason: PtcareCollection has been rescheduled by [facility]ONMI at 01/21/2024 09:12 Reason:Patient not in room Performed By: #### C BCWD #### [facility] [address] [place] [address] WBC (Bld) [#/Vol] 8.3 10*3/uL Normal 4.8-10.8 [facility] Comment on above: Order Comment: Colle ction has been rescheduled by GONMI at 01/21/2024 08:53 Reason: PtcareCollection has been rescheduled by GONMI at 01/21/2024 09:12 Reason:Patient not in room Performed By: #### C BCWD #### [facility] [address] [place] [address] FL MODIFIED BARIUM SWALLOW W VIDEOon 01-21-2024 FL MODIFIED BARIUM SWALLOW W VIDEO EXAMINATION: MODIFIED BARIUM SWALLOW WAS PERFORMED IN CONJUNCTION WITH SPEECH PATHOLOGY SERVICES TECHNIQUE: Under fluoroscopic evaluation cineradiography/videoradiog chata recordings were performed in conjunction with the speech-language pathologist (TECHNOLOGY INFUSION SPECIALIST). Various liquid, solid and/or semi-solid barium preparations [...] Butch Edmonds MD 01/22/24 Final result Normal [facility] Urinalysis, reflex to micros copicon 01-21-2024 Bilirubin Ql (U) Negative Normal Negative [facility] Comment on above: Performed By: #### C BCWD #### [facility] [address] [place] [address] Clarity (U) Clear Normal Clear [facility] Comment on above: Performed By: #### C BCWD #### [facility] [address] [place] [address] Color (U) Yellow Normal Straw/Inyo [facility] Comment on above: Performed By: #### C BCWD #### [facility] [address] [place] [address] Glucose Ql (U) Negative Normal Negative [facility] Comment on above: Performed By: #### C BCWD #### [facility] [address] [place] [address] Hemoglobin Ql (U) TRACE Abnormal Negative [facility] Comment on above: Performed By: #### C BCWD #### [facility] [address] [place] [address] Ketones Ql (U) Negative Normal Negative [facility] Comment on above: Performed By: #### C BCWD #### [facility] [address] [place] [address] Leukocyte esterase Test strip Ql (U) MODERATE Abnormal Negative [facility] Comment on above: Performed By: #### C BCWD #### [facility] [address] [place] [address] Nitrite Ql (U) Negative Normal Negative [facility] Comment on above: Performed By: #### C BCWD #### [facility] [address] [place] [address] pH (U) 7.0 [pH] Normal 5.0-9.0 [facility] Comment on above: Performed By: #### C BCWD #### [facility] [address] [place] [address] Protein Ql (U) Negative Normal Negative [facility] Comment on above: Performed By: #### C BCWD #### [facility] [address] [place] [address] Specific gravity (U) [Rel density] 1.015 Normal 1.005-1.03 [facility] Comment on above: Performed By: #### C BCWD #### [facility] [address] [place] [address] Urobilinogen Qn (U) 0.2 {Chan'U}/dL Normal < 2.0 [facility] Comment on above: Performed By: #### C BCWD #### [facility] [address] [place] [address] Urine Microscopicon 01-21-20 24 Urine Fine Casts 1-3 Normal 0-5 [facility] Comment on above: Performed By: #### C BCWD #### [facility] [address] [place] [address] Bacteria LM.HPF (Urine sed) [#/Area] Negative Normal Negative [facility] Comment on above: Performed By: #### C BCWD #### [facility] [address] [place] [address] Urine Epithelial Cells Auto 0-2 Normal 0-5 [facility] Comment on above: Performed By: #### C BCWD #### [facility] [address] [place] [address] Urine Hyaline Casts Auto 5-10 Normal 0-5 [facility] Comment on above: Performed By: #### C BCWD #### [facility] [address] [place] [address] Urine RBC Auto 0-2 Normal 0-5 [facility] Comment on above: Performed By: #### C BCWD #### [facility] [address] [place] [address] Urine WBC Auto 20-50 Abnormal 0-5 [facility] Comment on above: Performed By: #### C BCWD #### [facility] [address] [place] [address] BASIC METABOLIC PANLon 01-18 Anion gap [Moles/Vol] 6 mmol/L Normal 5-15 [facility] Comment on above: Performed By: #### C BCA #### [facility] ([id number]) [address] [place] [address] Calcium [Mass/Vol] 8.8 mg/dL Normal 8.5-10.5 [facility] Comment on above: Performed By: #### C BCA #### [facility] ([id number]) [address], [address] [place] [address] Chloride [Moles/Vol] 112 mmol/L High 98-109 [facility] Comment on above: Performed By: #### C BCA #### [facility] ([id number]) [address] [place] [address] CO2 [Moles/Vol] 25 mmol/L Normal 22-32 [facility] Comment on above: Performed By: #### C BCA #### [facility] ([id number]) [address] [place] [address] Creatinine [Mass/Vol] 0.93 mg/dL Normal 0.40-1.00 [facility] Comment on above: Result Comment: METH OD TRACEABLE TO IDMS STANDARD Performed By: #### C BCA #### [facility] ([id number]) [address], [address] [place] [address] GFR/1.73 sq M.predicted among non-blacks MDRD (S/P/Bld) [Vol rate/Area] 63 mL/min/{1.73_m2} Normal >59 [facility] Comment on above: Result Comment: Reported eGFR is based on the CKD-EPI 2020 equation that does not use a race coefficient. Performed By: #### C BCA #### [facility] ([id number]) [address] [place] [address] Glucose [Mass/Vol] 96 mg/dL Normal 65-99 [facility] Comment on above: Performed By: #### C BCA #### [facility] ([id number]) [address] [place] [address] Potassium [Moles/Vol] 4.4 mmol/L Normal 3.5-5.0 [facility] Comment on above: Performed By: #### C BCA #### [facility] ([id number]) [address] [place] [address] Sodium [Moles/Vol] 143 mmol/L Normal 134-146 [facility] Comment on above: Performed By: #### C BCA #### [facility] ([id number]) [address] [place] [address] Urea nitrogen [Mass/Vol] 18 mg/dL Normal 5-27 [facility] Comment on above: Performed By: #### C BCA #### [facility] ([id number]) [address] [place] [address] COMPLETE BLOOD COUNTon 01-18 Erythrocyte distribution width (RBC) [Ratio] 19.3 % High 11.5-15.0 [facility] Comment on above: Performed By: #### C BCA #### [facility] ([id number]) [address] [place] [address] Hematocrit (Bld) [Volume fraction] 34.6 % Low 35-47 [facility] Comment on above: Performed By: #### C BCA #### [facility] ([id number]) [address] [place] [address] Hemoglobin (Bld) [Mass/Vol] 11.1 g/dL Low 11.7-15.5 [facility] Comment on above: Performed By: #### C BCA #### [facility] ([id number]) [address] [place] [address] MCH (RBC) [Entitic mass] 28.5 pg Normal 27-34 [facility] Comment on above: Performed By: #### C BCA #### [facility] ([id number]) [address] [place] [address] MCHC (RBC) [Mass/Vol] 31.9 g/dL Low 32-36 [facility] Comment on above: Performed By: #### C BCA #### [facility] ([id number]) [address] [place] [address] MCV (RBC) [Entitic vol] 89 fL Normal 80-100 [facility] Comment on above: Performed By: #### C BCA #### [facility] ([id number]) [address] [place] [address] Platelet mean volume (Bld) [Entitic vol] 8.6 fL Normal 7-12 [facility] Comment on above: Performed By: #### C BCA #### [facility] ([id number]) [address] [place] [address] Platelets (Bld) [#/Vol] 288 10*3/uL Normal 150-450 [facility] Comment on above: Performed By: #### C BCA #### [facility] ([id number]) [address] [place] [address] RBC COUNT 3.88 X10E12/L Normal 3.80-5.20 [facility] Comment on above: Performed By: #### C BCA #### [facility] ([id number]) [address] [place] [address] WBC (Bld) [#/Vol] 9.9 10*3/uL Normal 4.0-11.0 [facility] Comment on above: Performed By: #### C BCA #### [facility] ([id number]) [address] [address] [place] [address] Glucose Glucometer (BldC) [M ass/Vol]on 01-19-2024 Glucose [Mass/Vol] 106 mg/dL High 65-99 [facility] Glucose [Mass/Vol] 157 mg/dL High 65-99 [facility] Glucose [Mass/Vol] 106 mg/dL High 65-99 [facility] BASIC METABOLIC PANLon 01-17 Anion gap [Moles/Vol] 8 mmol/L Normal 5-15 [facility] Comment on above: Performed By: #### C BCA #### [facility] ([id number]) [address] [facility], [address] [place] [address] Calcium [Mass/Vol] 8.9 mg/dL Normal 8.5-10.5 [facility] Comment on above: Performed By: #### C BCA #### [facility] ([id number]) [address] [facility], [address] [place] [address] Chloride [Moles/Vol] 112 mmol/L High 98-109 [facility] Comment on above: Performed By: #### C BCA #### [facility] ([id number]) [address] [facility], [address] [place] [address] CO2 [Moles/Vol] 23 mmol/L Normal 22-32 [facility] Comment on above: Performed By: #### C BCA #### [facility] ([id number]) [address], [address] [place] [address] Creatinine [Mass/Vol] 1.07 mg/dL High 0.40-1.00 [facility] Comment on above: Result Comment: METH OD TRACEABLE TO IDMS STANDARD Performed By: #### C BCA #### [facility] ([id number]) [address] [address] [place] [address] GFR/1.73 sq M.predicted among non-blacks MDRD (S/P/Bld) [Vol rate/Area] 53 mL/min/{1.73_m2} Low >59 [facility] Comment on above: Result Comment: Reported eGFR is based on the CKD-EPI 2020 equation that does not use a race coefficient. Performed By: #### C BCA #### [facility] ([id number]) [address] [address] [place] [address] Glucose [Mass/Vol] 109 mg/dL High 65-99 [facility] Comment on above: Performed By: #### C BCA #### [facility] ([id number]) [address] [address] [place] [address] Potassium [Moles/Vol] 3.6 mmol/L Normal 3.5-5.0 [facility] Comment on above: Performed By: #### C BCA #### [facility] ([id number]) [address], [address] [place] [address] Sodium [Moles/Vol] 143 mmol/L Normal 134-146 [facility] Comment on above: Performed By: #### C BCA #### [facility] ([id number]) [address] [address] [place] [address] Urea nitrogen [Mass/Vol] 21 mg/dL Normal 5-27 [facility] Comment on above: Performed By: #### C BCA #### [facility] ([id number]) [address] [address] [place] [address] COMPLETE BLOOD COUNTon 01-17 Erythrocyte distribution width (RBC) [Ratio] 18.9 % High 11.5-15.0 [facility] Comment on above: Performed By: #### C BCA #### [facility] ([id number]) [address], [address] [place] [address] Hematocrit (Bld) [Volume fraction] 35.0 % Normal 35-47 [facility] Comment on above: Performed By: #### C BCA #### [facility] ([id number]) [address], [address] [place] [address] Hemoglobin (Bld) [Mass/Vol] 11.6 g/dL Low 11.7-15.5 [facility] Comment on above: Performed By: #### C BCA #### [facility] ([id number]) [address], [address] [place] [address] MCH (RBC) [Entitic mass] 28.8 pg Normal 27-34 [facility] Comment on above: Performed By: #### C BCA #### [facility] ([id number]) [address], [address] [place] [address] MCHC (RBC) [Mass/Vol] 33.1 g/dL Normal 32-36 [facility] Comment on above: Performed By: #### C BCA #### [facility] ([id number]) [address], [address] [place] [address] MCV (RBC) [Entitic vol] 87 fL Normal 80-100 [facility] Comment on above: Performed By: #### C BCA #### [facility] ([id number]) [address], [address] [place] [address] Platelet mean volume (Bld) [Entitic vol] 8.3 fL Normal 7-12 [facility] Comment on above: Performed By: #### C BCA #### [facility] ([id number]) [address] [place] [address] Platelets (Bld) [#/Vol] 331 10*3/uL Normal 150-450 [facility] Comment on above: Performed By: #### C BCA #### [facility] ([id number]) [address] [place] [address] RBC COUNT 4.03 X10E12/L Normal 3.80-5.20 [facility] Comment on above: Performed By: #### C BCA #### [facility] ([id number]) [address], [address] [place] [address] WBC (Bld) [#/Vol] 10.5 10*3/uL Normal 4.0-11.0 [facility] Comment on above: Performed By: #### C BCA #### [facility] ([id number]) [address] [place] [address] Glucose Glucometer (BldC) [M ass/Vol]on 01-18-2024 Glucose [Mass/Vol] 124 mg/dL High 65-99 [facility] Glucose [Mass/Vol] 149 mg/dL High 65-99 [facility] BASIC METABOLIC PANLon 01-16 Anion gap [Moles/Vol] 10 mmol/L Normal 5-15 [facility] Comment on above: Performed By: #### C BCA #### [facility] ([id number]) [address], [address] [place] [address] Calcium [Mass/Vol] 8.6 mg/dL Normal 8.5-10.5 [facility] Comment on above: Performed By: #### C BCA #### [facility] ([id number]) [address] [place] [address] Chloride [Moles/Vol] 111 mmol/L High 98-109 [facility] Comment on above: Performed By: #### C BCA #### [facility] ([id number]) [address] [place] [address] CO2 [Moles/Vol] 19 mmol/L Low 22-32 [facility] Comment on above: Performed By: #### C BCA #### [facility] ([id number]) [address], [address] [place] [address] Creatinine [Mass/Vol] 0.94 mg/dL Normal 0.40-1.00 [facility] Comment on above: Result Comment: METH OD TRACEABLE TO IDMS STANDARD Performed By: #### C BCA #### [facility] ([id number]) [address], [address] [place] [address] GFR/1.73 sq M.predicted among non-blacks MDRD (S/P/Bld) [Vol rate/Area] 62 mL/min/{1.73_m2} Normal >59 [facility] Comment on above: Result Comment: Reported eGFR is based on the CKD-EPI 2020 equation that does not use a race coefficient. Performed By: #### C BCA #### [facility] ([id number]) [address], [address] [place] [address] Glucose [Mass/Vol] 72 mg/dL Normal 65-99 [facility] Comment on above: Performed By: #### C BCA #### [facility] ([id number]) [address], [address] [place] [address] Potassium [Moles/Vol] 3.9 mmol/L Normal 3.5-5.0 [facility] Comment on above: Performed By: #### C BCA #### [facility] ([id number]) [address], [address] [place] [address] Sodium [Moles/Vol] 140 mmol/L Normal 134-146 [facility] Comment on above: Performed By: #### C BCA #### [facility] ([id number]) [address], [address] [place] [address] Urea nitrogen [Mass/Vol] 15 mg/dL Normal 5-27 [facility] Comment on above: Performed By: #### C BCA #### [facility] ([id number]) [address], [address] [place] [address] COMPLETE BLOOD COUNTon 01-16 Erythrocyte distribution width (RBC) [Ratio] 18.5 % High 11.5-15.0 [facility] Comment on above: Performed By: #### C BCA #### [facility] ([id number]) [address] [place] [address] Hematocrit (Bld) [Volume fraction] 35.3 % Normal 35-47 [facility] Comment on above: Performed By: #### C BCA #### [facility] ([id number]) [address] [place] [address] Hemoglobin (Bld) [Mass/Vol] 11.4 g/dL Low 11.7-15.5 [facility] Comment on above: Performed By: #### C BCA #### [facility] ([id number]) [address] [place] [address] MCH (RBC) [Entitic mass] 28.5 pg Normal 27-34 [facility] Comment on above: Performed By: #### C BCA #### [facility] ([id number]) [address], [address] [place] [address] MCHC (RBC) [Mass/Vol] 32.3 g/dL Normal 32-36 [facility] Comment on above: Performed By: #### C BCA #### [facility] ([id number]) [address], [address] [place] [address] MCV (RBC) [Entitic vol] 88 fL Normal 80-100 [facility] Comment on above: Performed By: #### C BCA #### [facility] ([id number]) [address], [address] [place] [address] Platelet mean volume (Bld) [Entitic vol] 8.5 fL Normal 7-12 [facility] Comment on above: Performed By: #### C BCA #### [facility] ([id number]) [address], [address] [place] [address] Platelets (Bld) [#/Vol] 332 10*3/uL Normal 150-450 [facility] Comment on above: Performed By: #### C BCA #### [facility] ([id number]) [address], [address] [place] [address] RBC COUNT 4.00 X10E12/L Normal 3.80-5.20 [facility] Comment on above: Performed By: #### C BCA #### [facility] ([id number]) [address], [address] [place] [address] WBC (Bld) [#/Vol] 10.3 10*3/uL Normal 4.0-11.0 [facility] Comment on above: Performed By: #### C BCA #### [facility] ([id number]) [address], [address] [place] [address] Glucose Glucometer (dC) [M ass/Vol]on 01-17-2024 Glucose [Mass/Vol] 137 mg/dL High 65-99 [facility] Glucose [Mass/Vol] 102 mg/dL High 65-99 [facility] Glucose [Mass/Vol] 75 mg/dL Normal 65-99 [facility] Glucose [Mass/Vol] 90 mg/dL Normal 65-99 [facility] MR BRAIN WO CONTon MR BRAIN WO [...] Fair MD on 01/17/2024 7:10 PM Normal [facility] BASIC METABOLIC PANLon 01-15 Anion gap [Moles/Vol] 9 mmol/L Normal 5-15 [facility] Comment on above: Performed By: #### C BCA #### [facility] ([id number]) [address] [place] [address] Calcium [Mass/Vol] 8.5 mg/dL Normal 8.5-10.5 [facility] Comment on above: Performed By: #### C BCA #### [facility] ([id number]) [address], [address] [place] [address] Chloride [Moles/Vol] 111 mmol/L High 98-109 [facility] Comment on above: Performed By: #### C BCA #### [facility] ([id number]) [address] [place] [address] CO2 [Moles/Vol] 21 mmol/L Low 22-32 [facility] Comment on above: Performed By: #### C BCA #### [facility] ([id number]) [address] [place] [address] Creatinine [Mass/Vol] 0.96 mg/dL Normal 0.40-1.00 [facility] Comment on above: Result Comment: METH OD TRACEABLE TO IDMS STANDARD Performed By: #### C BCA #### [facility] ([id number]) [address] [place] [address] GFR/1.73 sq M.predicted among non-blacks MDRD (S/P/Bld) [Vol rate/Area] 60 mL/min/{1.73_m2} Normal >59 [facility] Comment on above: Result Comment: Reported eGFR is based on the CKD-EPI 2020 equation that does not use a race coefficient. Performed By: #### C BCA #### [facility] ([id number]) [address], [address] [place] [address] Glucose [Mass/Vol] 88 mg/dL Normal 65-99 [facility] Comment on above: Performed By: #### C BCA #### [facility] ([id number]) [address], [address] [place] [address] Potassium [Moles/Vol] 4.1 mmol/L Normal 3.5-5.0 [facility] Comment on above: Performed By: #### C BCA #### [facility] ([id number]) [address], [address] [place] [address] Sodium [Moles/Vol] 141 mmol/L Normal 134-146 [facility] Comment on above: Performed By: #### C BCA #### [facility] ([id number]) [address], [address] [place] [address] Urea nitrogen [Mass/Vol] 19 mg/dL Normal 5-27 [facility] Comment on above: Performed By: #### C BCA #### [facility] ([id number]) [address], [address] [place] [address] COMPLETE BLOOD COUNTon 01-15 Erythrocyte distribution width (RBC) [Ratio] 18.0 % High 11.5-15.0 [facility] Comment on above: Performed By: #### C BCA #### [facility] ([id number]) [address] [place] [address] Hematocrit (Bld) [Volume fraction] 37.3 % Normal 35-47 [facility] Comment on above: Performed By: #### C BCA #### [facility] ([id number]) [address], [address] [place] [address] Hemoglobin (Bld) [Mass/Vol] 11.9 g/dL Normal 11.7-15.5 [facility] Comment on above: Performed By: #### C BCA #### [facility] ([id number]) [address] [place] [address] MCH (RBC) [Entitic mass] 28.2 pg Normal 27-34 [facility] Comment on above: Performed By: #### C BCA #### [facility] ([id number]) [address] [place] [address] MCHC (RBC) [Mass/Vol] 31.9 g/dL Low 32-36 [facility] Comment on above: Performed By: #### C BCA #### [facility] ([id number]) [address] [place] [address] MCV (RBC) [Entitic vol] 88 fL Normal 80-100 [facility] Comment on above: Performed By: #### C BCA #### [facility] ([id number]) [address], [address] [place] [address] Platelet mean volume (Bld) [Entitic vol] 8.1 fL Normal 7-12 [facility] Comment on above: Performed By: #### C BCA #### [facility] ([id number]) [address], [address] [place] [address] Platelets (Bld) [#/Vol] 340 10*3/uL Normal 150-450 [facility] Comment on above: Performed By: #### C BCA #### [facility] ([id number]) [address] [place] [address] RBC COUNT 4.22 X10E12/L Normal 3.80-5.20 [facility] Comment on above: Performed By: #### C BCA #### [facility] ([id number]) [address] [place] [address] WBC (Bld) [#/Vol] 11.7 10*3/uL High 4.0-11.0 [facility] Comment on above: Performed By: #### C BCA #### [facility] ([id number]) [address] [place] [address] Glucose Glucometer (BldC) [M ass/Vol]on 01-16-2024 Glucose [Mass/Vol] 77 mg/dL Normal 65-99 [facility] Glucose [Mass/Vol] 85 mg/dL Normal 65-99 [facility] Glucose [Mass/Vol] 85 mg/dL Normal 65-99 [facility] Glucose [Mass/Vol] 102 mg/dL High 65-99 [facility] BASIC METABOLIC PANLon 01-14 Anion gap [Moles/Vol] 10 mmol/L Normal 5-15 [facility] Comment on above: Performed By: #### C BCA #### [facility] ([id number]) [address] [place] [address] Calcium [Mass/Vol] 8.7 mg/dL Normal 8.5-10.5 [facility] Comment on above: Performed By: #### C BCA #### [facility] ([id number]) [address] [place] [address] Chloride [Moles/Vol] 111 mmol/L High 98-109 [facility] Comment on above: Performed By: #### C BCA #### [facility] ([id number]) [address] [place] [address] CO2 [Moles/Vol] 22 mmol/L Normal 22-32 [facility] Comment on above: Performed By: #### C BCA #### [facility] ([id number]) [address] [place] [address] Creatinine [Mass/Vol] 0.99 mg/dL Normal 0.40-1.00 [facility] Comment on above: Result Comment: METH OD TRACEABLE TO IDMS STANDARD Performed By: #### C BCA #### [facility] ([id number]) [address] [place] [address] GFR/1.73 sq M.predicted among non-blacks MDRD (S/P/Bld) [Vol rate/Area] 58 mL/min/{1.73_m2} Low >59 [facility] Comment on above: Result Comment: Reported eGFR is based on the CKD-EPI 2020 equation that does not use a race coefficient. Performed By: #### C BCA #### [facility] ([id number]) [address] [place] [address] Glucose [Mass/Vol] 72 mg/dL Normal 65-99 [facility] Comment on above: Performed By: #### C BCA #### [facility] ([id number]) [address] [place] [address] Potassium [Moles/Vol] 3.9 mmol/L Normal 3.5-5.0 [facility] Comment on above: Performed By: #### C BCA #### [facility] ([id number]) [address] [place] [address] Sodium [Moles/Vol] 143 mmol/L Normal 134-146 [facility] Comment on above: Performed By: #### C BCA #### [facility] ([id number]) [address] [place] [address] Urea nitrogen [Mass/Vol] 18 mg/dL Normal 5-27 [facility] Comment on above: Performed By: #### C BCA #### [facility] ([id number]) [address] [place] [address] COMPLETE BLOOD COUNTon 01-14 Erythrocyte distribution width (RBC) [Ratio] 17.4 % High 11.5-15.0 [facility] Comment on above: Performed By: #### C BCA #### [facility] ([id number]) [address] [place] [address] Hematocrit (Bld) [Volume fraction] 35.7 % Normal 35-47 [facility] Comment on above: Performed By: #### C BCA #### [facility] ([id number]) [address] [place] [address] Hemoglobin (Bld) [Mass/Vol] 11.4 g/dL Low 11.7-15.5 [facility] Comment on above: Performed By: #### C BCA #### [facility] ([id number]) [address] [place] [address] MCH (RBC) [Entitic mass] 28.1 pg Normal 27-34 [facility] Comment on above: Performed By: #### C BCA #### [facility] ([id number]) [address] [place] [address] MCHC (RBC) [Mass/Vol] 32.1 g/dL Normal 32-36 [facility] Comment on above: Performed By: #### C BCA #### [facility] ([id number]) [address] [place] [address] MCV (RBC) [Entitic vol] 88 fL Normal 80-100 [facility] Comment on above: Performed By: #### C BCA #### [facility] ([id number]) [address] [facility] [address] [place] [address] Platelet mean volume (Bld) [Entitic vol] 8.2 fL Normal 7-12 [facility] Comment on above: Performed By: #### C BCA #### [facility] ([id number]) [address] [address] [place] [address] Platelets (Bld) [#/Vol] 371 10*3/uL Normal 150-450 [facility] Comment on above: Performed By: #### C BCA #### [facility] ([id number]) [address] [facility] [address] [place] [address] RBC COUNT 4.07 X10E12/L Normal 3.80-5.20 [facility] Comment on above: Performed By: #### C BCA #### [facility] ([id number]) [address] [address] WBC (Bld) [#/Vol] 12.1 10*3/uL High 4.0-11.0 [facility] Comment on above: Performed By: #### C BCA #### [facility] ([id number]) [address] [place] [address] Glucose Glucometer (dC) [M ass/Vol]on 01-15-2024 Glucose [Mass/Vol] 90 mg/dL Normal 65-99 [facility] Glucose [Mass/Vol] 83 mg/dL Normal 65-99 [facility] Glucose [Mass/Vol] 63 mg/dL Low 65-99 [facility] Glucose [Mass/Vol] 67 mg/dL Normal 65-99 [facility] Glucose [Mass/Vol] 76 mg/dL Normal 65-99 [facility] Glucose [Mass/Vol] 67 mg/dL Normal 65-99 [facility] Glucose [Mass/Vol] 66 mg/dL Normal 65-99 [facility] BASIC METABOLIC PANLon 01-13 Anion gap [Moles/Vol] 10 mmol/L Normal 5-15 [facility] Comment on above: Performed By: #### C BCA #### [facility] ([id number]) [address] [place] [address] Calcium [Mass/Vol] 8.5 mg/dL Normal 8.5-10.5 [facility] Comment on above: Performed By: #### C BCA #### [facility] ([id number]) [address] [place] [address] Chloride [Moles/Vol] 109 mmol/L Normal 98-109 [facility] Comment on above: Performed By: #### C BCA #### [facility] ([id number]) [address] [place] [address] CO2 [Moles/Vol] 22 mmol/L Normal 22-32 [facility] Comment on above: Performed By: #### C BCA #### [facility] ([id number]) [address] [place] [address] Creatinine [Mass/Vol] 0.93 mg/dL Normal 0.40-1.00 [facility] Comment on above: Result Comment: METH OD TRACEABLE TO IDMS STANDARD Performed By: #### C BCA #### [facility] ([id number]) [address] [place] [address] GFR/1.73 sq M.predicted among non-blacks MDRD (S/P/Bld) [Vol rate/Area] 63 mL/min/{1.73_m2} Normal >59 [facility] Comment on above: Result Comment: Reported eGFR is based on the CKD-EPI 2020 equation that does not use a race coefficient. Performed By: #### C BCA #### [facility] ([id number]) [address] [place] [address] Glucose [Mass/Vol] 77 mg/dL Normal 65-99 [facility] Comment on above: Performed By: #### C BCA #### [facility] ([id number]) [address] [place] [address] Potassium [Moles/Vol] 4.7 mmol/L Normal 3.5-5.0 [facility] Comment on above: Result Comment: SPEC IMEN HEMOLYZED, RESULTS INCREASED MODERATELY HEMOLYZED Performed By: #### C BCA #### [facility] ([id number]) [address], [address] [place] [address] Sodium [Moles/Vol] 141 mmol/L Normal 134-146 [facility] Comment on above: Performed By: #### C BCA #### [facility] ([id number]) [address], [address] [place] [address] Urea nitrogen [Mass/Vol] 18 mg/dL Normal 5-27 [facility] Comment on above: Performed By: #### C BCA #### [facility] ([id number]) [address], [address] [place] [address] COMPLETE BLOOD COUNTon 01-13 Erythrocyte distribution width (RBC) [Ratio] 17.5 % High 11.5-15.0 [facility] Comment on above: Performed By: #### C BCA #### [facility] ([id number]) [address], [address] [place] [address] Hematocrit (Bld) [Volume fraction] 35.4 % Normal 35-47 [facility] Comment on above: Performed By: #### C BCA #### [facility] ([id number]) [address] [address] [place] [address] Hemoglobin (Bld) [Mass/Vol] 11.6 g/dL Low 11.7-15.5 [facility] Comment on above: Performed By: #### C BCA #### [facility] ([id number]) [address], [address] [place] [address] MCH (RBC) [Entitic mass] 28.2 pg Normal 27-34 [facility] Comment on above: Performed By: #### C BCA #### [facility] ([id number]) [address], [address] [place] [address] MCHC (RBC) [Mass/Vol] 32.7 g/dL Normal 32-36 [facility] Comment on above: Performed By: #### C BCA #### [facility] ([id number]) [address], [address] [place] [address] MCV (RBC) [Entitic vol] 86 fL Normal 80-100 [facility] Comment on above: Performed By: #### C BCA #### [facility] ([id number]) [address], [address] [place] [address] Platelet mean volume (Bld) [Entitic vol] 8.1 fL Normal 7-12 [facility] Comment on above: Performed By: #### C BCA #### [facility] ([id number]) [address], [address] [place] [address] Platelets (Bld) [#/Vol] 378 10*3/uL Normal 150-450 [facility] Comment on above: Performed By: #### C BCA #### [facility] ([id number]) [address], [address] [place] [address] RBC COUNT 4.10 X10E12/L Normal 3.80-5.20 [facility] Comment on above: Performed By: #### C BCA #### [facility] ([id number]) [address], [address] [place] [address] WBC (Bld) [#/Vol] 12.8 10*3/uL High 4.0-11.0 [facility] Comment on above: Performed By: #### C BCA #### [facility] ([id number]) [address], [address] [place] [address] Glucose Glucometer (BldC) [M ass/Vol]on 01-14-2024 Glucose [Mass/Vol] 69 mg/dL Normal 65-99 [facility] Glucose [Mass/Vol] 69 mg/dL Normal 65-99 [facility] Glucose [Mass/Vol] 73 mg/dL Normal 65-99 [facility] Glucose [Mass/Vol] 66 mg/dL Normal 65-99 [facility] Glucose [Mass/Vol] 72 mg/dL Normal 65-99 [facility] Glucose [Mass/Vol] 83 mg/dL Normal 65-99 [facility] XR ABDOMEN AP 1 VWon 024 XR ABDOMEN AP 1 VW XR ABDOMEN AP 1 VW Abdomen: HISTORY: Enteric tube placement. Single view of the abdomen was obtained. Enteric tube tip is within the mid stomach. Bowel gas pattern is nonspecific. No free air. IMPRESSION: Enteric tube tip within mid stomach. Finalized by Rojas Iglesias MD on 01/14/2024 7:42 PM Normal [facility] BASIC METABOLIC PANLon 01-12 Anion gap [Moles/Vol] 9 mmol/L Normal 5-15 [facility] Comment on above: Performed By: #### C BCA #### [facility] ([id number]) [address], [address] [place] [address] Calcium [Mass/Vol] 8.8 mg/dL Normal 8.5-10.5 [facility] Comment on above: Performed By: #### C BCA #### [facility] ([id number]) [address], [address] [place] [address] Chloride [Moles/Vol] 108 mmol/L Normal 98-109 [facility] Comment on above: Performed By: #### C BCA #### [facility] ([id number]) [address], [address] [place] [address] CO2 [Moles/Vol] 26 mmol/L Normal 22-32 [facility] Comment on above: Performed By: #### C BCA #### [facility] ([id number]) [address], [address] [place] [address] Creatinine [Mass/Vol] 0.96 mg/dL Normal 0.40-1.00 [facility] Comment on above: Result Comment: METH OD TRACEABLE TO IDMS STANDARD Performed By: #### C BCA #### [facility] ([id number]) [address], [address] [place] [address] GFR/1.73 sq M.predicted among non-blacks MDRD (S/P/Bld) [Vol rate/Area] 60 mL/min/{1.73_m2} Normal >59 [facility] Comment on above: Result Comment: Reported eGFR is based on the CKD-EPI 2020 equation that does not use a race coefficient. Performed By: #### C BCA #### [facility] ([id number]) [address], [address] [place] [address] Glucose [Mass/Vol] 98 mg/dL Normal 65-99 [facility] Comment on above: Performed By: #### C BCA #### [facility] ([id number]) [address], [address] [place] [address] Potassium [Moles/Vol] 3.2 mmol/L Low 3.5-5.0 [facility] Comment on above: Performed By: #### C BCA #### [facility] ([id number]) [address], [address] [place] [address] Sodium [Moles/Vol] 143 mmol/L Normal 134-146 [facility] Comment on above: Performed By: #### C BCA #### [facility] ([id number]) [address], [address] [place] [address] Urea nitrogen [Mass/Vol] 22 mg/dL Normal 5-27 [facility] Comment on above: Performed By: #### C BCA #### [facility] ([id number]) [address], [address] [place] [address] COMPLETE BLOOD COUNTon 01-12 Erythrocyte distribution width (RBC) [Ratio] 17.0 % High 11.5-15.0 [facility] Comment on above: Performed By: #### C BCA #### [facility] ([id number]) [address] [place] [address] Hematocrit (Bld) [Volume fraction] 32.4 % Low 35-47 [facility] Comment on above: Performed By: #### C BCA #### [facility] ([id number]) [address] [place] [address] Hemoglobin (Bld) [Mass/Vol] 10.7 g/dL Low 11.7-15.5 [facility] Comment on above: Performed By: #### C BCA #### [facility] ([id number]) [address], [address] [place] [address] MCH (RBC) [Entitic mass] 28.6 pg Normal 27-34 [facility] Comment on above: Performed By: #### C BCA #### [facility] ([id number]) [address], [address] [place] [address] MCHC (RBC) [Mass/Vol] 33.0 g/dL Normal 32-36 [facility] Comment on above: Performed By: #### C BCA #### [facility] ([id number]) [address], [address] [place] [address] MCV (RBC) [Entitic vol] 87 fL Normal 80-100 [facility] Comment on above: Performed By: #### C BCA #### [facility] ([id number]) [address] [address] Platelet mean volume (Bld) [Entitic vol] 7.5 fL Normal 7-12 [facility] Comment on above: Performed By: #### C BCA #### [facility] ([id number]) [address], [address] [address] Platelets (Bld) [#/Vol] 374 10*3/uL Normal 150-450 [facility] Comment on above: Performed By: #### C BCA #### [facility] ([id number]) [address] [address] RBC COUNT 3.74 X10E12/L Low 3.80-5.20 [facility] Comment on above: Performed By: #### C BCA #### [facility] ([id number]) [address], [address] [address] WBC (Bld) [#/Vol] 10.8 10*3/uL Normal 4.0-11.0 [facility] Comment on above: Performed By: #### C BCA #### [facility] ([id number]) [address] [address] Glucose Glucometer (BldC) [M ass/Vol]on 01-13-2024 Glucose [Mass/Vol] 81 mg/dL Normal 65-99 [facility] Glucose [Mass/Vol] 91 mg/dL Normal 65-99 [facility] Glucose [Mass/Vol] 86 mg/dL Normal 65-99 [facility] Glucose [Mass/Vol] 85 mg/dL Normal 65-99 [facility] Glucose [Mass/Vol] 79 mg/dL Normal 65-99 [facility] POTASSIUMon 03-19-2024 Potassium [Moles/Vol] 3.5 mmol/L Normal 3.5-5.0 [facility] Comment on above: Performed By: #### C BCA #### [facility] ([id number]) [address] [place] [address], [address] [place] [address] URINALYSISon 01-13-2024 Bilirubin Ql (U) Negative Normal NEG [facility] BLOOD/HGB Small Abnormal NEG [facility] Color (U) YELLOW Normal YELLOW [facility] Glucose Ql (U) Negative Normal NEG [facility] Ketones Ql (U) Negative Normal NEG [facility] Leukocyte esterase Test strip Ql (U) Large Abnormal NEG [facility] MUCOUS PRESENT Abnormal [facility] Nitrite Ql (U) Negative Normal NEG [facility] pH (U) 7.0 [pH] Normal 5.0-8.5 [facility] Protein Ql (U) 30 mg/dL Abnormal NEG [facility] R.B.CELLS 23 /hpf High 0-5 [facility] RENAL EPITHELIUM 4 /hpf High 0 [facility] Specific gravity (U) [Rel density] 1.012 Normal 1.003-1.03 5 [facility] TRANSITIONAL EPITH 1 /hpf High 0 [facility] TURBIDITY CLOUDY Abnormal CLEAR [facility] Urobilinogen Qn (U) 2 {Chan'U}/dL High <1.1 [facility] W.B.CELLS >720 High 0-5 [facility] WBC CLUMPS MANY Abnormal [facility] URINE CULTUREon 01-13-2024 Bacteria identified Cx [...] <=1 F TRIMETH/SULFAMETHOXAZOLE S <=/ F Susceptible [facility] Comment on above: Performed By: #### C BCA #### [facility] ([id number]) [address], [address] [place] [address] BASIC METABOLIC PANLon 01-11 Anion gap [Moles/Vol] 10 mmol/L Normal 5-15 [facility] Comment on above: Performed By: #### C BCA #### [facility] ([id number]) [address], [address] [place] [address] Calcium [Mass/Vol] 9.1 mg/dL Normal 8.5-10.5 [facility] Comment on above: Performed By: #### C BCA #### [facility] ([id number]) [address], [address] [place] [address] Chloride [Moles/Vol] 109 mmol/L Normal 98-109 [facility] Comment on above: Performed By: #### C BCA #### [facility] ([id number]) [address], [address] [place] [address] CO2 [Moles/Vol] 24 mmol/L Normal 22-32 [facility] Comment on above: Performed By: #### C BCA #### [facility] ([id number]) [address], [address] [place] [address] Creatinine [Mass/Vol] 0.96 mg/dL Normal 0.40-1.00 [facility] Comment on above: Result Comment: METH OD TRACEABLE TO IDMS STANDARD Performed By: #### C BCA #### [facility] ([id number]) [address], [address] [place] [address] GFR/1.73 sq M.predicted among non-blacks MDRD (S/P/Bld) [Vol rate/Area] 60 mL/min/{1.73_m2} Normal >59 [facility] Comment on above: Result Comment: Reported eGFR is based on the CKD-EPI 2020 equation that does not use a race coefficient. Performed By: #### C BCA #### [facility] ([id number]) [address], [address] [place] [address] Glucose [Mass/Vol] 84 mg/dL Normal 65-99 [facility] Comment on above: Performed By: #### C BCA #### [facility] ([id number]) [address] [address] [place] [address] Potassium [Moles/Vol] 3.7 mmol/L Normal 3.5-5.0 [facility] Comment on above: Performed By: #### C BCA #### [facility] ([id number]) [address] [address] [place] [address] Sodium [Moles/Vol] 143 mmol/L Normal 134-146 [facility] Comment on above: Performed By: #### C BCA #### [facility] ([id number]) [address], [address] [place] [address] Urea nitrogen [Mass/Vol] 23 mg/dL Normal 5-27 [facility] Comment on above: Performed By: #### C BCA #### [facility] ([id number]) [address] [address] [place] [address] COMPLETE BLOOD COUNTon 01-11 Erythrocyte distribution width (RBC) [Ratio] 17.0 % High 11.5-15.0 [facility] Comment on above: Performed By: #### C BCA #### [facility] ([id number]) [address] [address] [place] [address] Hematocrit (Bld) [Volume fraction] 31.8 % Low 35-47 [facility] Comment on above: Performed By: #### C BCA #### [facility] ([id number]) [address], [address] [place] [address] Hemoglobin (Bld) [Mass/Vol] 10.6 g/dL Low 11.7-15.5 [facility] Comment on above: Performed By: #### C BCA #### [facility] ([id number]) [address], [address] [place] [address] MCH (RBC) [Entitic mass] 28.7 pg Normal 27-34 [facility] Comment on above: Performed By: #### C BCA #### [facility] ([id number]) [address], [address] [place] [address] MCHC (RBC) [Mass/Vol] 33.4 g/dL Normal 32-36 [facility] Comment on above: Performed By: #### C BCA #### [facility] ([id number]) [address], [address] [place] [address] MCV (RBC) [Entitic vol] 86 fL Normal 80-100 [facility] Comment on above: Performed By: #### C BCA #### [facility] ([id number]) [address], [address] [place] [address] Platelet mean volume (Bld) [Entitic vol] 7.5 fL Normal 7-12 [facility] Comment on above: Performed By: #### C BCA #### [facility] ([id number]) [address], [address] [place] [address] Platelets (Bld) [#/Vol] 367 10*3/uL Normal 150-450 [facility] Comment on above: Performed By: #### C BCA #### [facility] ([id number]) [address] [place] [address] RBC COUNT 3.69 X10E12/L Low 3.80-5.20 [facility] Comment on above: Performed By: #### C BCA #### [facility] ([id number]) [address], [address] [address] WBC (Bld) [#/Vol] 10.9 10*3/uL Normal 4.0-11.0 [facility] Comment on above: Performed By: #### C BCA #### [facility] ([id number]) [address] [address] Glucose Glucometer (BldC) [M ass/Vol]on 01-12-2024 Glucose [Mass/Vol] 82 mg/dL Normal 65-99 [facility] Glucose [Mass/Vol] 69 mg/dL Normal 65-99 [facility] Glucose [Mass/Vol] 84 mg/dL Normal 65-99 [facility] Laboratory comment Luan (Repo rt)on 01-12-2024 SARS-CoV-2 (COVID-19) RNA ELSI+probe Ql (Unsp spec) [facility] Report to Follow. Normal [facility] Comment on above: Performed By: #### C BCA #### [facility] ([id number]) [address] [address] MAGNESIUMon 01-12-2024 Magnesium [Mass/Vol] 2.0 mg/dL Normal 1.8-2.6 [facility] Comment on above: Performed By: #### C BCA #### [facility] ([id number]) [address] [address] SARS CoV2 by NAAT/Molecularo n 01-12-2024 SARS-CoV-2 [...] operators who are performing tests using either [employer] or [employer] systems and is limited to laboratories that [...] repeat. Fact Sheet for Healthcare Providers: https://www.fda.gov/media/1 21911/download Fact Sheet for Patients: https://www.fda.gov/media/1 41471/download Normal NDET [facility] Comment on above: Performed By: #### C BCA #### [facility] ([id number]) [address] [address] BASIC METABOLIC PANLon 01-10 Anion gap [Moles/Vol] 13 mmol/L Normal 5-15 [facility] Comment on above: Performed By: #### C BCA #### [facility] ([id number]) [address] [address] Calcium [Mass/Vol] 9.1 mg/dL Normal 8.5-10.5 [facility] Comment on above: Performed By: #### C BCA #### [facility] ([id number]) [address] [place] [address] Chloride [Moles/Vol] 106 mmol/L Normal 98-109 [facility] Comment on above: Performed By: #### C BCA #### [facility] ([id number]) [address], [address] [place] [address] CO2 [Moles/Vol] 22 mmol/L Normal 22-32 [facility] Comment on above: Performed By: #### C BCA #### [facility] ([id number]) [address] [address] [place] [address] Creatinine [Mass/Vol] 0.95 mg/dL Normal 0.40-1.00 [facility] Comment on above: Result Comment: METH OD TRACEABLE TO IDMS STANDARD Performed By: #### C BCA #### [facility] ([id number]) [address] [place] [address] GFR/1.73 sq M.predicted among non-blacks MDRD (S/P/Bld) [Vol rate/Area] 61 mL/min/{1.73_m2} Normal >59 [facility] Comment on above: Result Comment: Reported eGFR is based on the CKD-EPI 2020 equation that does not use a race coefficient. Performed By: #### C BCA #### [facility] ([id number]) [address] [place] [address] Glucose [Mass/Vol] 86 mg/dL Normal 65-99 [facility] Comment on above: Performed By: #### C BCA #### [facility] ([id number]) [address] [address] [place] [address] Potassium [Moles/Vol] 3.5 mmol/L Normal 3.5-5.0 [facility] Comment on above: Performed By: #### C BCA #### [facility] ([id number]) [address] [place] [address] Sodium [Moles/Vol] 141 mmol/L Normal 134-146 [facility] Comment on above: Performed By: #### C BCA #### [facility] ([id number]) [address] [place] [address] Urea nitrogen [Mass/Vol] 24 mg/dL Normal 5-27 [facility] Comment on above: Performed By: #### C BCA #### [facility] ([id number]) [address], [address] [place] [address] COMPLETE BLOOD COUNTon 01-10 Erythrocyte distribution width (RBC) [Ratio] 17.2 % High 11.5-15.0 [facility] Comment on above: Performed By: #### C BCA #### [facility] ([id number]) [address], [address] [place] [address] Hematocrit (Bld) [Volume fraction] 31.1 % Low 35-47 [facility] Comment on above: Performed By: #### C BCA #### [facility] ([id number]) [address], [address] [place] [address] Hemoglobin (Bld) [Mass/Vol] 10.4 g/dL Low 11.7-15.5 [facility] Comment on above: Performed By: #### C BCA #### [facility] ([id number]) [address] [place] [address] MCH (RBC) [Entitic mass] 28.6 pg Normal 27-34 [facility] Comment on above: Performed By: #### C BCA #### [facility] ([id number]) [address] [place] [address] MCHC (RBC) [Mass/Vol] 33.4 g/dL Normal 32-36 [facility] Comment on above: Performed By: #### C BCA #### [facility] ([id number]) [address], [address] [place] [address] MCV (RBC) [Entitic vol] 86 fL Normal 80-100 [facility] Comment on above: Performed By: #### C BCA #### [facility] ([id number]) [address] [place] [address] Platelet mean volume (Bld) [Entitic vol] 7.5 fL Normal 7-12 [facility] Comment on above: Performed By: #### C BCA #### [facility] ([id number]) [address] [address] [place] [address] Platelets (Bld) [#/Vol] 382 10*3/uL Normal 150-450 [facility] Comment on above: Performed By: #### C BCA #### [facility] ([id number]) [address] [facility] [address] [place] [address] RBC COUNT 3.63 X10E12/L Low 3.80-5.20 [facility] Comment on above: Performed By: #### C BCA #### [facility] ([id number]) [address] [address] WBC (Bld) [#/Vol] 9.4 10*3/uL Normal 4.0-11.0 [facility] Comment on above: Performed By: #### C BCA #### [facility] ([id number]) [address], [address] [place] [address] CEREBRAL PERF ANALYSISon 01-11-2024 CT CEREBRAL [...] Fair MD on 01/10/2024 10:50 PM Normal [facility] Glucose Glucometer (BldC) [M ass/Vol]on 01-11-2024 Glucose [Mass/Vol] 76 mg/dL Normal 65-99 [facility] Glucose [Mass/Vol] 93 mg/dL Normal 65-99 [facility] Glucose [Mass/Vol] 86 mg/dL Normal 65-99 [facility] Glucose [Mass/Vol] 71 mg/dL Normal 65-99 [facility] Glucose [Mass/Vol] 75 mg/dL Normal 65-99 [facility] MAGNESIUMon 01-11-2024 Magnesium [Mass/Vol] 2.0 mg/dL Normal 1.8-2.6 [facility] [place] Comment on above: Performed By: #### C BCA #### [facility] ([id number]) [address] [place] [address] POTASSIUMon 01-11-2024 Potassium [Moles/Vol] 4.1 mmol/L Normal 3.5-5.0 [facility] Comment on above: Performed By: #### C BCA #### [facility] ([id number]) [address] [place] [address] Potassium [Moles/Vol] 3.6 mmol/L Normal 3.5-5.0 [facility] Comment on above: Performed By: #### C BCA #### [facility] ([id number]) [address] [place] [address] BASIC METABOLIC PANLon 01-09 Anion gap [Moles/Vol] 9 mmol/L Normal 5-15 [facility] Comment on above: Performed By: #### C BCA, 98978-6, BMP, 88783-2 #### [facility] ([id number]) [address] [place] [address] Calcium [Mass/Vol] 9.1 mg/dL Normal 8.5-10.5 [facility] Comment on above: Performed By: #### C BCA, 41486-4, BMP, 93748-1 #### [facility] ([id number]) [address] [place] [address] Chloride [Moles/Vol] 106 mmol/L Normal 98-109 [facility] Comment on above: Performed By: #### C BCA, 69935-7, BMP, 95550-5 #### [facility] ([id number]) [address] [place] [address] CO2 [Moles/Vol] 23 mmol/L Normal 22-32 [facility] Comment on above: Performed By: #### C BCA, 32591-9, BMP, 45189-9 #### [facility] ([id number]) [address] [place] [address] Creatinine [Mass/Vol] 0.91 mg/dL Normal 0.40-1.00 [facility] Comment on above: Result Comment: METH OD TRACEABLE TO IDMS STANDARD Performed By: #### C BCA, 22034-5, BMP, 60683-4 #### [facility] ([id number]) [address], [address] [place] [address] GFR/1.73 sq M.predicted among non-blacks MDRD (S/P/Bld) [Vol rate/Area] 64 mL/min/{1.73_m2} Normal >59 [facility] Comment on above: Result Comment: Reported eGFR is based on the CKD-EPI 2020 equation that does not use a race coefficient. Performed By: #### C BCA, 34218-0, BMP, 99653-1 #### [facility] ([id number]) [address] [place] [address] Glucose [Mass/Vol] 90 mg/dL Normal 65-99 [facility] Comment on above: Performed By: #### C BCA, 26013-7, BMP, 32938-0 #### [facility] ([id number]) [address] [address] [place] [address] Potassium [Moles/Vol] 3.8 mmol/L Normal 3.5-5.0 [facility] Comment on above: Performed By: #### C BCA, 56533-2, BMP, 84400-5 #### [facility] ([id number]) [address] [place] [address] Sodium [Moles/Vol] 138 mmol/L Normal 134-146 [facility] Comment on above: Performed By: #### C BCA, 60987-2, BMP, 48136-7 #### [facility] ([id number]) [address] [address] [place] [address] Urea nitrogen [Mass/Vol] 21 mg/dL Normal 5-27 [facility] Comment on above: Performed By: #### C BCA, 47602-2, BMP, 15910-5 #### [facility] ([id number]) [address] [address] [place] [address] COMPLETE BLOOD COUNTon 01-09 Erythrocyte distribution width (RBC) [Ratio] 17.0 % High 11.5-15.0 [facility] Comment on above: Performed By: #### C BCA, 87312-0, BMP, 04655-6 #### [facility] ([id number]) [address] [address] [place] [address] Hematocrit (Bld) [Volume fraction] 31.1 % Low 35-47 [facility] Comment on above: Performed By: #### Vidya ARTEAGA, 38694-3, BMP, 42753-2 #### [facility] ([id number]) [address], [facility] [address] [place] [address] Hemoglobin (Bld) [Mass/Vol] 10.2 g/dL Low 11.7-15.5 [facility] Comment on above: Performed By: #### Vidya ARTEAGA, 62188-2, BMP, 40369-6 #### [facility] ([id number]) [address] [facility] [address] [place] [address] MCH (RBC) [Entitic mass] 28.1 pg Normal 27-34 [facility] Comment on above: Performed By: #### Vidya ARTEAGA, 52797-8, BMP, 65444-9 #### [facility] ([id number]) [address], [facility] [address] [place] [address] MCHC (RBC) [Mass/Vol] 32.8 g/dL Normal 32-36 [facility] Comment on above: Performed By: #### Vidya ARTEAGA, 96713-9, BMP, 33995-5 #### [facility] ([id number]) [address], [facility] [address] [place] [address] MCV (RBC) [Entitic vol] 86 fL Normal 80-100 [facility] Comment on above: Performed By: #### Vidya ARTEAGA, 55006-4, BMP, 69106-9 #### [facility] ([id number]) [address], [facility] [address] [place] [address] Platelet mean volume (Bld) [Entitic vol] 7.7 fL Normal 7-12 [facility] Comment on above: Performed By: #### Vidya ARTEAGA, 44275-8, BMP, 17817-0 #### [facility] ([id number]) [address], [address] [place] [address] Platelets (Bld) [#/Vol] 392 10*3/uL Normal 150-450 [facility] Comment on above: Performed By: #### Vidya ARTEAGA, 66663-3, BMP, 73992-7 #### [facility] ([id number]) [address], [address] [place] [address] RBC COUNT 3.63 X10E12/L Low 3.80-5.20 [facility] Comment on above: Performed By: #### Vidya ARTEAGA, 69213-0, BMP, 93588-7 #### [facility] ([id number]) [address], [address] [place] [address] WBC (Bld) [#/Vol] 13.9 10*3/uL High 4.0-11.0 [facility] Comment on above: Performed By: #### Vidya ARTEAGA, 03803-4, BMP, 01758-5 #### [facility] ([id number]) [address], [address] [place] [address] Glucose Glucometer ([facility]) [M ass/Vol]on 01-10-2024 Glucose [Mass/Vol] 78 mg/dL Normal 65-99 [facility] Glucose [Mass/Vol] 75 mg/dL Normal 65-99 [facility] Glucose [Mass/Vol] 83 mg/dL Normal 65-99 [facility] MAGNESIUMon 01-10-2024 Magnesium [Mass/Vol] 2.0 mg/dL Normal 1.8-2.6 [facility] Comment on above: Performed By: #### Vidya ARTEAGA, 73082-0, BMP, 69452-9 #### [facility] ([id number]) [address], [address] [place] [address] MR BRAIN WO CONTon MR BRAIN WO [...] Iglesias MD on 01/10/2024 6:26 PM Normal [facility] BASIC METABOLIC PANLon 01-08 Anion gap [Moles/Vol] 9 mmol/L Normal 5-15 [facility] Comment on above: Performed By: #### 1 0839-9 #### [facility] ([id number]) [address], [address] [place] [address] Calcium [Mass/Vol] 8.9 mg/dL Normal 8.5-10.5 [facility] Comment on above: Performed By: #### 1 0839-9 #### [facility] ([id number]) [address], [address] [place] [address] Chloride [Moles/Vol] 107 mmol/L Normal 98-109 [facility] Comment on above: Performed By: #### 1 0839-9 #### [facility] ([id number]) [address], [address] [place] [address] CO2 [Moles/Vol] 24 mmol/L Normal 22-32 [facility] Comment on above: Performed By: #### 1 0839-9 #### [facility] ([id number]) [address], [address] [place] [address] Creatinine [Mass/Vol] 0.87 mg/dL Normal 0.40-1.00 [facility] Comment on above: Result Comment: METH OD TRACEABLE TO IDMS STANDARD Performed By: #### 1 0839-9 #### [facility] ([id number]) [address], [address] [place] [address] GFR/1.73 sq M.predicted among non-blacks MDRD (S/P/Bld) [Vol rate/Area] 68 mL/min/{1.73_m2} Normal >59 [facility] Comment on above: Result Comment: Reported eGFR is based on the CKD-EPI 2020 equation that does not use a race coefficient. Performed By: #### 1 0839-9 #### [facility] ([id number]) [address], [address] [place] [address] Glucose [Mass/Vol] 107 mg/dL High 65-99 [facility] Comment on above: Performed By: #### 1 0839-9 #### [facility] ([id number]) [address], [address] [place] [address] Potassium [Moles/Vol] 3.9 mmol/L Normal 3.5-5.0 [facility] Comment on above: Performed By: #### 1 0839-9 #### [facility] ([id number]) [address], [address] [place] [address] Sodium [Moles/Vol] 140 mmol/L Normal 134-146 [facility] Comment on above: Performed By: #### 1 0839-9 #### [facility] ([id number]) [address], [address] [place] [address] Urea nitrogen [Mass/Vol] 14 mg/dL Normal 5-27 [facility] Comment on above: Performed By: #### 1 0839-9 #### [facility] ([id number]) [address], [address] [place] [address] COMPLETE BLOOD COUNTon 01-08 Erythrocyte distribution width (RBC) [Ratio] 16.6 % High 11.5-15.0 [facility] Comment on above: Performed By: #### 1 0839-9 #### [facility] ([id number]) [address], [address] [place] [address] Hematocrit (Bld) [Volume fraction] 32.0 % Low 35-47 [facility] Comment on above: Performed By: #### 1 0839-9 #### [facility] ([id number]) [address], [address] [place] [address] Hemoglobin (Bld) [Mass/Vol] 10.6 g/dL Low 11.7-15.5 [facility] Comment on above: Performed By: #### 1 0839-9 #### [facility] ([id number]) [address], [address] [place] [address] MCH (RBC) [Entitic mass] 28.2 pg Normal 27-34 [facility] Comment on above: Performed By: #### 1 0839-9 #### [facility] ([id number]) [address], [address] [place] [address] MCHC (RBC) [Mass/Vol] 33.0 g/dL Normal 32-36 [facility] Comment on above: Performed By: #### 1 0839-9 #### [facility] ([id number]) [address] [place] [address] MCV (RBC) [Entitic vol] 86 fL Normal 80-100 [facility] Comment on above: Performed By: #### 1 0839-9 #### [facility] ([id number]) [address], [address] [place] [address] Platelet mean volume (Bld) [Entitic vol] 7.5 fL Normal 7-12 [facility] Comment on above: Performed By: #### 1 0839-9 #### [facility] ([id number]) [address], [address] [place] [address] Platelets (Bld) [#/Vol] 356 10*3/uL Normal 150-450 [facility] Comment on above: Performed By: #### 1 0839-9 #### [facility] ([id number]) [address], [address] [place] [address] RBC COUNT 3.74 X10E12/L Low 3.80-5.20 [facility] Comment on above: Performed By: #### 1 0839-9 #### [facility] ([id number]) [address], [address] [address] WBC (Bld) [#/Vol] 12.7 10*3/uL High 4.0-11.0 [facility] Comment on above: Performed By: #### 1 0839-9 #### [facility] ([id number]) [address], [address] [place] [address] Calcium.ionized (Bld) [Mass/ Vol]on 01-09-2024 IONIZED CALCIUM 4.9 mg/dL Normal 4.5-5.3 [facility] Comment on above: Performed By: #### 1 0839-9 #### [facility] ([id number]) [address], [address] [place] [address] Glucose Glucometer (BldC) [M ass/Vol]on 01-09-2024 Glucose [Mass/Vol] 91 mg/dL Normal 65-99 [facility] Glucose [Mass/Vol] 117 mg/dL High 65-99 [facility] Glucose [Mass/Vol] 83 mg/dL Normal 65-99 [facility] Glucose [Mass/Vol] 101 mg/dL High 65-99 [facility] MAGNESIUMon 01-09-2024 Magnesium [Mass/Vol] 2.0 mg/dL Normal 1.8-2.6 [facility] Comment on above: Performed By: #### 1 0839-9 #### [facility] ([id number]) [address], [address] [place] [address] Magnesium Ionized ISE (Bld) [Moles/Vol]on 01-09-2024 Magnesium [Moles/Vol] 0.55 mmol/L Normal 0.45-0.74 [facility] Comment on above: Result Comment: NEW REFERENCE RANGE Performed By: #### 1 0839-9 #### [facility] ([id number]) [address] [place] [address] BASIC METABOLIC PANLon 01-07 Anion gap [Moles/Vol] 5 mmol/L Normal 5-15 [facility] Comment on above: Performed By: #### C BC, BMP, 63997-4, PINR, 3274-8 ####[facility] ([id number])[address], [place] [address] Calcium [Mass/Vol] 8.5 mg/dL Normal 8.5-10.5 [facility] Comment on above: Performed By: #### C BC, BMP, 93079-2, PINR, 3274-8 ####[facility] ([id number])[address] [address] Chloride [Moles/Vol] 109 mmol/L Normal 98-109 [facility] Comment on above: Performed By: #### C BC, BMP, 49739-4, PINR, 3274-8 ####[facility] ([id number])[address], [place] [address] CO2 [Moles/Vol] 25 mmol/L Normal 22-32 [facility] Comment on above: Performed By: #### C BC, BMP, 77024-7, PINR, 3274-8 ####[facility] ([id number])[address], [place] [address] Creatinine [Mass/Vol] 0.94 mg/dL Normal 0.40-1.00 [facility] Comment on above: Result Comment: METH OD TRACEABLE TO IDMS STANDARD Performed By: #### C BC, BMP, 11552-3, PINR, 3274-8 ####[facility] ([id number])[address] [address] GFR/1.73 sq M.predicted among non-blacks MDRD (S/P/Bld) [Vol rate/Area] 62 mL/min/{1.73_m2} Normal >59 [facility] Comment on above: Result Comment: Reported eGFR is based on the CKD-EPI 2020 equation that does not use a race coefficient. Performed By: #### C BC, BMP, , PINR, 3274-8 ####[facility] ([id number])[address] [address] [place] [address] Glucose [Mass/Vol] 125 mg/dL High 65-99 [facility] Comment on above: Performed By: #### C MOISE, BMP, , PINR, 3274-8 ####[facility] ([id number])[address] [address] [address] Potassium [Moles/Vol] 3.8 mmol/L Normal 3.5-5.0 [facility] Comment on above: Performed By: #### C BC, BMP, 26473-5, PINR, 3274-8 ####[facility] ([id number])[address] [address] [address] Sodium [Moles/Vol] 139 mmol/L Normal 134-146 [facility] Comment on above: Performed By: #### C BC, BMP, 90368-9, PINR, 3274-8 ####[facility] ([id number])[address] [address] [address] Urea nitrogen [Mass/Vol] 12 mg/dL Normal 5-27 [facility] Comment on above: Performed By: #### C BC, BMP, , PINR, 3273-8 ####[facility] ([id number])[address] [place] [address] COMPLETE BLOOD COUNTon 01-07 Erythrocyte distribution width (RBC) [Ratio] 16.7 % High 11.5-15.0 [facility] Comment on above: Performed By: #### C BC, BMP, , PINR, 4-8 ####[facility] ([id number])[address] [address] [place] [address] Hematocrit (Bld) [Volume fraction] 23.9 % Low 35-47 [facility] Comment on above: Performed By: #### C BC, BMP, , PINR, 3273-8 ####[facility] ([id number])[address] [address] [address] Hemoglobin (Bld) [Mass/Vol] 7.7 g/dL Low 11.7-15.5 [facility] Comment on above: Performed By: #### C BC, BMP, , PINR, 3273-8 ####[facility] ([id number])[address] [address] [place] [address] MCH (RBC) [Entitic mass] 28.0 pg Normal 27-34 [facility] Comment on above: Performed By: #### C BC, BMP, , PINR, 4-8 ####[facility] ([id number])[address] [address] [place] [address] MCHC (RBC) [Mass/Vol] 32.4 g/dL Normal 32-36 [facility] Comment on above: Performed By: #### C BC, BMP, , PINR, 3274-8 ####[facility] ([id number])[address], [place] [address] MCV (RBC) [Entitic vol] 87 fL Normal 80-100 [facility] Comment on above: Performed By: #### C BC, BMP, , PINR, 3273-8 ####[facility] ([id number])[address] [place] [address] Platelet mean volume (Bld) [Entitic vol] 7.6 fL Normal 7-12 [facility] Comment on above: Performed By: #### Vidya BC, BMP, , PINR, 327-8 ####[facility] ([id number])[address] [place] [address] Platelets (Bld) [#/Vol] 293 10*3/uL Normal 150-450 [facility] Comment on above: Performed By: #### Vidya BC, BMP, , PINR, 3274-8 ####[facility] ([id number])[address], [place] [address] RBC COUNT 2.76 X10E12/L Low 3.80-5.20 [facility] Comment on above: Performed By: #### Vidya BC, BMP, , PINR, 3274-8 ####[facility] ([id number])[address] [place] [address] WBC (Bld) [#/Vol] 9.1 10*3/uL Normal 4.0-11.0 [facility] Comment on above: Performed By: #### Vidya BC, BMP, , PINR, 3274-8 ####[facility] ([id number])[address], [place] [address] Glucose Glucometer (BldC) [M ass/Vol]on 01-08-2024 Glucose [Mass/Vol] 98 mg/dL Normal 65-99 [facility] Glucose [Mass/Vol] 111 mg/dL High 65-99 [facility] Glucose [Mass/Vol] 132 mg/dL High 65-99 [facility] Glucose [Mass/Vol] 129 mg/dL High 65-99 [facility] HGB AND HCTon 01-08-2024 Hematocrit (Bld) [Volume fraction] 30.8 % Low 35-47 [facility] Comment on above: Performed By: #### 2 823-3, ####[facility] ([id number])[address] [place] [address] Hemoglobin (Bld) [Mass/Vol] 10.2 g/dL Low 11.7-15.5 [facility] Comment on above: Performed By: #### 2 823-3, ####[facility] ([id number])[address], [address] [place] [address] Heparin unfractionated Chrom ogenic method Qn (PPP)on 01-08-2024 ANTI XA UFH 0.23 IU/mL Low 0.30-0.70 [facility] Comment on above: Result Comment: Opti mal time for testing is 6 hrs post dosage This test is specific for monitoring patients on UFH, and is not recommended for use with other Anti-Xa medications. Performed By: #### C KANCHAN PHIPPS, 80129-0, PINR, 3274-8 ####[facility] ([id number])[address] [place] [address] MAGNESIUMon 01-08-2024 Magnesium [Mass/Vol] 2.4 mg/dL Normal 1.8-2.6 [facility] Comment on above: Performed By: #### C KANCHAN PHIPPS, 04809-5, PINR, 3274-8 ####[facility] ([id number])[address], [address] [place] [address] POTASSIUMon 01-08-2024 Potassium [Moles/Vol] 4.1 mmol/L Normal 3.5-5.0 [facility] Comment on above: Performed By: #### 2 823-3, ####[facility] ([id number])[address] [place] [address] PROTIME AND INRon 01-08-2024 INR Coag (PPP) [Relative time] 0.9 {INR} Normal 0.8-1.1 [facility] Comment on above: Performed By: #### C BC, BMP, , PINR, 3274-8 ####[facility] ([id number])[address] [address] PT Coag (PPP) [Time] 11.0 s Normal 9.8-13.2 [facility] Comment on above: Performed By: #### C BC, BMP, , PINR, 3274-8 ####[facility] ([id number])[address] [address] ARTERIAL BLOOD GASon 024 DEENA'S TEST Normal [facility] Comment on above: Performed By: #### B MP #### [facility] ([id number]) [address] [place] [address] BASE,DEFICIT 3.0 MMOL/L High 0.0-2.0 [facility] Comment on above: Performed By: #### B MP #### [facility] ([id number]) [address] [place] [address] Body temperature 98.6 [degF] Normal 37.0 [facility] Comment on above: Performed By: #### B MP #### [facility] ([id number]) [address] [place] [address] HCO3 (Bld) [Moles/Vol] 21.4 mmol/L Low 22-26 [facility] Comment on above: Performed By: #### B MP #### [facility] ([id number]) [address] [place] [address] INSP. O2 CONC. 40 % Normal [facility] Comment on above: Performed By: #### B MP #### [facility] ([id number]) [address] [place] [address] Oxygen (Bld) [Partial pressure] 199 mm[Hg] High 80-100 [facility] Comment on above: Performed By: #### B MP #### [facility] ([id number]) [address] [place] [address] Oxygen saturation in Blood 100.0 % Normal >90 [facility] Comment on above: Performed By: #### B MP #### [facility] ([id number]) [address] [place] [address] OXYGEN SOURCE Vent Normal [facility] Comment on above: Performed By: #### B MP #### [facility] ([id number]) [address] [place] [address] PCO2 33.5 MMHG Low 35-45 [facility] Comment on above: Performed By: #### B MP #### [facility] ([id number]) [address] [place] [address] pH (Bld) 7.413 [pH] Normal 7.350-7.45 0 [facility] Comment on above: Performed By: #### B MP #### [facility] ([id number]) [address] [place] [address] SAMPLE SITE Veronika Normal [facility] Comment on above: Performed By: #### B MP #### [facility] ([id number]) [address] [place] [address] SAMPLE TYPE ARTERIAL Normal [facility] Comment on above: Performed By: #### B MP #### [facility] ([id number]) [address] [place] [address] BASIC METABOLIC PANLon 01-06 Anion gap [Moles/Vol] 9 mmol/L Normal 5-15 [facility] Comment on above: Performed By: #### C BC, BMP, , PINR ####[facility] ([id number])[address], [place] [address] Calcium [Mass/Vol] 8.7 mg/dL Normal 8.5-10.5 [facility] Comment on above: Performed By: #### C MOISE BMP, , PINR ####[facility] ([id number])[address], [place] [address] Chloride [Moles/Vol] 109 mmol/L Normal 98-109 [facility] Comment on above: Performed By: #### C MOISE, BMP, , PINR ####[facility] ([id number])[address] [address], [place] [address] CO2 [Moles/Vol] 22 mmol/L Normal 22-32 [facility] Comment on above: Performed By: #### C BC, BMP, , PINR ####[facility] ([id number])[address], [place] [address] Creatinine [Mass/Vol] 1.08 mg/dL High 0.40-1.00 [facility] Comment on above: Result Comment: METH OD TRACEABLE TO IDMS STANDARD Performed By: #### C BC, BMP, , PINR ####[facility] ([id number])[address] [address] GFR/1.73 sq M.predicted among non-blacks MDRD (S/P/Bld) [Vol rate/Area] 52 mL/min/{1.73_m2} Low >59 [facility] Comment on above: Result Comment: Reported eGFR is based on the CKD-EPI 2020 equation that does not use a race coefficient. Performed By: #### C MOISE [facility], , PINR ####[facility] ([id number])[address] [address] Glucose [Mass/Vol] 89 mg/dL Normal 65-99 [facility] Comment on above: Performed By: #### Vidya PHIPPS [facility], , PINR ####[facility] ([id number])[address] [address] Potassium [Moles/Vol] 3.8 mmol/L Normal 3.5-5.0 [facility] Comment on above: Performed By: #### Vidya PHIPPS [facility], , PINR ####[facility] ([id number])[address] [address] Sodium [Moles/Vol] 140 mmol/L Normal 134-146 [facility] Comment on above: Performed By: #### Vidya PHIPPS [facility], , PINR ####[facility] ([id number])[address] [address] Urea nitrogen [Mass/Vol] 13 mg/dL Normal 5-27 [facility] Comment on above: Performed By: #### Vidya [place]PS [place] [facility], , PINR ####[facility] ([id number])[address] [address] COMPLETE BLOOD COUNTon 01-06 Erythrocyte distribution width (RBC) [Ratio] 16.7 % High 11.5-15.0 [facility] Comment on above: Performed By: #### C MOISE BMP, , PINR ####[facility] ([id number])[address], [place] [address] Hematocrit (Bld) [Volume fraction] 24.9 % Low 35-47 [facility] Comment on above: Performed By: #### C MOISE, BMP, , PINR ####[facility] ([id number])[address], [address], [place] [address] Hemoglobin (Bld) [Mass/Vol] 8.2 g/dL Low 11.7-15.5 [facility] Comment on above: Performed By: #### C MOISE, BMP, , PINR ####[facility] ([id number])[address], [address], [place] [address] MCH (RBC) [Entitic mass] 28.5 pg Normal 27-34 [facility] Comment on above: Performed By: #### C MOISE, [facility], , PINR ####[facility] ([id number])[address], [place] [address] MCHC (RBC) [Mass/Vol] 33.1 g/dL Normal 32-36 [facility] Comment on above: Performed By: #### C MOISE BMP, , PINR ####[facility] ([id number])[address], [place] [address] MCV (RBC) [Entitic vol] 86 fL Normal 80-100 [facility] Comment on above: Performed By: #### C MOISE, BMP, , PINR ####[facility] ([id number])[address], [place] [address] Platelet mean volume (Bld) [Entitic vol] 7.6 fL Normal 7-12 [facility] Comment on above: Performed By: #### C MOISE, [facility], [address]-3, PINR ####[facility] ([id number])[address] [address] Platelets (Bld) [#/Vol] 275 10*3/uL Normal 150-450 [facility] Comment on above: Performed By: #### C BC, [facility], [address]-5, PINR ####[facility] ([id number])[address] [address] [address] RBC COUNT 2.88 X10E12/L Low 3.80-5.20 [facility] Comment on above: Performed By: #### C MOISE, [facility], , PINR ####[facility] ([id number])[address] [address] WBC (Bld) [#/Vol] 9.7 10*3/uL Normal 4.0-11.0 [facility] Comment on above: Performed By: #### C MOISE, [facility], , PINR ####[facility] ([id number])[address] [address] FL SWALLOW MOTILITY FUNCTION on 01-07-2024 FL [...] Rodriguez MD on 01/07/2024 4:19 PM Normal [facility] Glucose Glucometer (BldC) [M ass/Vol]on 01-07-2024 Glucose [Mass/Vol] 117 mg/dL High 65-99 [facility] Glucose [Mass/Vol] 112 mg/dL High 65-99 [facility] Glucose [Mass/Vol] 82 mg/dL Normal 65-99 [facility] Glucose [Mass/Vol] 78 mg/dL Normal 65-99 [facility] Heparin unfractionated Chrom ogenic method Qn (PPP)on 01-07-2024 ANTI XA UFH 0.38 IU/mL Normal 0.30-0.70 [facility] Comment on above: Result Comment: Opti mal time for testing is 6 hrs post dosage This test is specific for monitoring patients on UFH, and is not recommended for use with other Anti-Xa medications. Performed By: #### B MP #### [facility] ([id number]) [address], [address] [place] [address] ANTI XA UFH 0.31 IU/mL Normal 0.30-0.70 [facility] Comment on above: Result Comment: Opti mal time for testing is 6 hrs post dosage This test is specific for monitoring patients on UFH, and is not recommended for use with other Anti-Xa medications. Performed By: #### 3 274-8 ####[facility] ([id number])[address] [address] MAGNESIUMon 01-07-2024 Magnesium [Mass/Vol] 2.1 mg/dL Normal 1.8-2.6 [facility] Comment on above: Performed By: #### B MP #### [facility] ([id number]) [address], [address] [place] [address] Magnesium [Mass/Vol] 1.7 mg/dL Low 1.8-2.6 [facility] Comment on above: Performed By: #### C MOISE, [facility], , PINR ####[facility] ([id number])[address], [address] [place] [address] Nonvisit Note - PTon 024 Nonvisit Note - PT cx Pt admitted to hospital [facility] POTASSIUMon 01-07-2024 Potassium [Moles/Vol] 4.7 mmol/L Normal 3.5-5.0 [facility] Comment on above: Performed By: #### B MP #### [facility] ([id number]) [address], [address] [place] [address] PROTIME AND INRon 01-07-2024 INR Coag (PPP) [Relative time] 1.0 {INR} Normal 0.8-1.1 [facility] Comment on above: Performed By: #### C MOISE [facility], , PINR ####[facility] ([id number])[address], [address] [place] [address] PT Coag (PPP) [Time] 11.9 s Normal 9.8-13.2 [facility] [place] Comment on above: Performed By: #### C KANCHAN PHIPPS, , PINR ####[facility] ([id number])[address], [address] [place] [address] XR CHEST 1 VWon 01-07-2024 XR CHEST [...] Valentino MD on 01/07/2024 5:39 AM Normal [facility] ARTERIAL BLOOD GASon 03-12-2 024 DEENA'S TEST Normal [facility] Comment on above: Performed By: #### A BG ####[facility] ([id number])[address] [facility] [place] [place] [address] BASE,DEFICIT 4.5 MMOL/L High 0.0-2.0 [facility] Comment on above: Performed By: #### A BG ####[facility] ([id number])[address] [facility] [place] [place] [facility] [address] Body temperature 98.6 [degF] Normal 37.0 [facility] Comment on above: Performed By: #### A BG ####[facility] ([id number])[address] [place] [address] HCO3 (Bld) [Moles/Vol] 20.6 mmol/L Low 22-26 [facility] Comment on above: Performed By: #### A BG ####[facility] ([id number])[address] [place] [address] INSP. O2 CONC. 40 % Normal [facility] Comment on above: Performed By: #### A BG ####[facility] ([id number])[address] [place] [address] Oxygen (Bld) [Partial pressure] 194 mm[Hg] High 80-100 [facility] Comment on above: Performed By: #### A BG ####[facility] ([id number])[address] [place] [address] Oxygen saturation in Blood 100.3 % Normal >90 [facility] Comment on above: Performed By: #### A BG ####[facility] ([id number])[address] [facility] [place] [place] [facility] [address] PCO2 34.5 MMHG Low 35-45 [facility] Comment on above: Performed By: #### A BG ####[facility] ([id number])[address] [place] [address] pH (Bld) 7.384 [pH] Normal 7.350-7.45 0 [facility] Comment on above: Performed By: #### A BG ####[facility] ([id number])[address] [place] [address] SAMPLE SITE VERONIKA Normal [facility] Comment on above: Performed By: #### A BG ####[facility] ([id number])[address] [place] [address] SAMPLE TYPE Arterial Normal [facility] Comment on above: Performed By: #### A BG ####[facility] ([id number])[address] [place] [address] DEENA'S TEST Normal [facility] Comment on above: Performed By: #### C BCA #### [facility] ([id number]) [address], [address] [place] [address] BASE,DEFICIT 6.8 MMOL/L High 0.0-2.0 [facility] Comment on above: Performed By: #### C BCA #### [facility] ([id number]) [address], [address] [place] [address] Body temperature 98.6 [degF] Normal 37.0 [facility] Comment on above: Performed By: #### C BCA #### [facility] ([id number]) [address], [address] [place] [address] HCO3 (Bld) [Moles/Vol] 18.0 mmol/L Low 22-26 [facility] Comment on above: Performed By: #### C BCA #### [facility] ([id number]) [address], [address] [place] [address] INSP. O2 CONC. 40 % Normal [facility] Comment on above: Performed By: #### C BCA #### [facility] ([id number]) [address], [address] [place] [address] Oxygen (Bld) [Partial pressure] 198 mm[Hg] High 80-100 [facility] Comment on above: Performed By: #### C BCA #### [facility] ([id number]) [address], [address] [place] [address] Oxygen saturation in Blood 100.4 % Normal >90 [facility] Comment on above: Performed By: #### C BCA #### [facility] ([id number]) [address], [address] [place] [address] PCO2 28.9 MMHG Low 35-45 [facility] Comment on above: Performed By: #### C BCA #### [facility] ([id number]) [address], [address] [place] [address] pH (Bld) 7.403 [pH] Normal 7.350-7.45 0 [facility] Comment on above: Performed By: #### C BCA #### [facility] ([id number]) [address], [address] [place] [address] SAMPLE SITE VERONIKA Normal [facility] Comment on above: Performed By: #### C BCA #### [facility] ([id number]) [address], [address] [place] [address] SAMPLE TYPE Arterial Normal [facility] Comment on above: Performed By: #### C BCA #### [facility] ([id number]) [address], [address] [place] [address] BASIC METABOLIC PANLon 01-05 Anion gap [Moles/Vol] 8 mmol/L Normal 5-15 [facility] Comment on above: Performed By: #### C BC, BMP, PINR, 60078-4 ####[facility] ([id number])[address], [place] [address] Calcium [Mass/Vol] 8.0 mg/dL Low 8.5-10.5 [facility] Comment on above: Performed By: #### C BC, BMP, PINR, 89683-4 ####[facility] ([id number])[address], [place] [address] Chloride [Moles/Vol] 109 mmol/L Normal 98-109 [facility] Comment on above: Performed By: #### C BC, BMP, PINR, 73392-2 ####[facility] ([id number])[address] [address] [address] CO2 [Moles/Vol] 22 mmol/L Normal 22-32 [facility] Comment on above: Performed By: #### C BC, BMP, PINR, 28242-4 ####[facility] ([id number])[address] [address] [place] [address] Creatinine [Mass/Vol] 1.13 mg/dL High 0.40-1.00 [facility] Comment on above: Result Comment: METH OD TRACEABLE TO IDMS STANDARD Performed By: #### C BC, BMP, PINR, 59063-4 ####[facility] ([id number])[address] [address] [place] [address] GFR/1.73 sq M.predicted among non-blacks MDRD (S/P/Bld) [Vol rate/Area] 49 mL/min/{1.73_m2} Low >59 [facility] Comment on above: Result Comment: Reported eGFR is based on the CKD-EPI 2020 equation that does not use a race coefficient. Performed By: #### C BC, BMP, PINR, 15538-2 ####[facility] ([id number])[address] [address], [place] [address] Glucose [Mass/Vol] 170 mg/dL High 65-99 [facility] Comment on above: Performed By: #### C BC, BMP, PINR, 84864-3 ####[facility] ([id number])[address], [address], [place] [address] Potassium [Moles/Vol] 4.5 mmol/L Normal 3.5-5.0 [facility] Comment on above: Performed By: #### C BC, BMP, PINR, 90947-3 ####[facility] ([id number])[address], [address], [place] [address] Sodium [Moles/Vol] 139 mmol/L Normal 134-146 [facility] Comment on above: Performed By: #### C BC, BMP, PINR, 03353-0 ####[facility] ([id number])[address], [place] [address] Urea nitrogen [Mass/Vol] 12 mg/dL Normal 5-27 [facility] Comment on above: Performed By: #### C BC, BMP, PINR, 73523-0 ####[facility] ([id number])[address], [place] [address] Anion gap [Moles/Vol] 9 mmol/L Normal 5-15 [facility] Comment on above: Performed By: #### C BC, 92761-7, 94403-9, PINR, 54028-5, BMP, 22468-0, LIVR ####[facility] ([id number])[address], [place] [address] Calcium [Mass/Vol] 8.4 mg/dL Low 8.5-10.5 [facility] Comment on above: Performed By: #### C BC, 17988-5, 36462-6, PINR, 00235-3, BMP, 85114-8, LIVR ####[facility] ([id number])[address], [place] [address] Creatinine [Mass/Vol] 1.16 mg/dL High 0.40-1.00 [facility] Comment on above: Result Comment: METH OD TRACEABLE TO IDMS STANDARD Performed By: #### C BC, 98898-3, 24659-5, PINR, 67637-5, BMP, 02305-7, LIVR ####[facility] ([id number])[address] [address] GFR/1.73 sq M.predicted among non-blacks MDRD (S/P/Bld) [Vol rate/Area] 48 mL/min/{1.73_m2} Low >59 [facility] Comment on above: Result Comment: Reported eGFR is based on the CKD-EPI 2020 equation that does not use a race coefficient. Performed By: #### C BC, 12227-5, 71612-4, PINR, 96354-2, BMP, 89918-3, LIVR ####[facility] ([id number])[address] [address] Sodium [Moles/Vol] 139 mmol/L Normal 134-146 [facility] Comment on above: Performed By: #### C BC, 95945-3, 89969-7, PINR, 75548-5, BMP, 45589-5, LIVR ####[facility] ([id number])[address] [address] Urea nitrogen [Mass/Vol] 11 mg/dL Normal 5-27 [facility] Comment on above: Performed By: #### C BC, 59483-2, 75887-8, PINR, 78220-5, BMP, 48011-3, LIVR ####[facility] ([id number])[address] [address] BEDSIDE GLUCOSE LABon 2023 Glucose [Mass/Vol] 150 mg/dL High 65-99 [facility] Comment on above: Performed By: #### C BC, 47935-0, 42080-3, PINR, 93405-9, BMP, 88266-0, LIVR ####[facility] ([id number])[address] [address] [place] [address] COMPLETE BLOOD COUNTon 01-05 Erythrocyte distribution width (RBC) [Ratio] 16.6 % High 11.5-15.0 [facility] Comment on above: Performed By: #### C BC, BMP, PINR, 33304-1 ####[facility] ([id number])[address] [address] [address] Hematocrit (Bld) [Volume fraction] 28.2 % Low 35-47 [facility] Comment on above: Performed By: #### C BC, BMP, PINR, 28009-7 ####[facility] ([id number])[address] [address] [address] Hemoglobin (Bld) [Mass/Vol] 9.4 g/dL Low 11.7-15.5 [facility] Comment on above: Performed By: #### C BC, BMP, PINR, 33350-9 ####[facility] ([id number])[address] [address] [place] [address] MCH (RBC) [Entitic mass] 28.2 pg Normal 27-34 [facility] Comment on above: Performed By: #### C BC, BMP, PINR, 47173-8 ####[facility] ([id number])[address] [address], [place] [address] MCHC (RBC) [Mass/Vol] 33.1 g/dL Normal 32-36 [facility] Comment on above: Performed By: #### C BC, BMP, PINR, 01455-1 ####[facility] ([id number])[address] [address], [place] [address] MCV (RBC) [Entitic vol] 85 fL Normal 80-100 [facility] Comment on above: Performed By: #### C BC, BMP, PINR, 79074-3 ####[facility] ([id number])[address] [place] [address] Platelet mean volume (Bld) [Entitic vol] 7.3 fL Normal 7-12 [facility] Comment on above: Performed By: #### C BC, BMP, PINR, 19415-2 ####[facility] ([id number])[address] [place] [address] Platelets (Bld) [#/Vol] 375 10*3/uL Normal 150-450 [facility] Comment on above: Performed By: #### C BC, BMP, PINR, 56177-0 ####[facility] ([id number])[address] [address] [place] [address] RBC COUNT 3.32 X10E12/L Low 3.80-5.20 [facility] Comment on above: Performed By: #### C BC, BMP, PINR, 50224-5 ####[facility] ([id number])[address] [address] [place] [address] WBC (Bld) [#/Vol] 16.5 10*3/uL High 4.0-11.0 [facility] Comment on above: Performed By: #### C BC, BMP, PINR, 60850-0 ####[facility] ([id number])[address] [address] [place] [address] Erythrocyte distribution width (RBC) [Ratio] 16.6 % High 11.5-15.0 [facility] Comment on above: Performed By: #### C BC, 95134-1, 10535-3, PINR, 16390-9, BMP, 50589-6, LIVR ####[facility] ([id number])[address] [address] [place] [address] Hematocrit (Bld) [Volume fraction] 30.3 % Low 35-47 [facility] Comment on above: Performed By: #### C BC, 64407-4, 12800-8, PINR, 82293-9, BMP, 48817-3, LIVR ####[facility] ([id number])[address] [address] [place] [address] Hemoglobin (Bld) [Mass/Vol] 9.9 g/dL Low 11.7-15.5 [facility] Comment on above: Performed By: #### C BC, 47344-6, 25980-3, PINR, 29144-0, BMP, 60531-0, LIVR ####[facility] ([id number])[address] [address] [place] [address] MCH (RBC) [Entitic mass] 27.8 pg Normal 27-34 [facility] Comment on above: Performed By: #### C BC, 48475-2, 95512-2, PINR, 62725-6, BMP, 94870-7, LIVR ####[facility] ([id number])[address] [address] MCHC (RBC) [Mass/Vol] 32.6 g/dL Normal 32-36 [facility] Comment on above: Performed By: #### C BC, 76417-0, 17432-5, PINR, 94187-3, BMP, 19427-2, LIVR ####[facility] ([id number])[address] [address] [place] [address] MCV (RBC) [Entitic vol] 85 fL Normal 80-100 [facility] Comment on above: Performed By: #### C BC, 58052-0, 10033-6, PINR, 44887-0, BMP, 29699-8, LIVR ####[facility] ([id number])[address], [place] [address] Platelet mean volume (Bld) [Entitic vol] 7.4 fL Normal 7-12 [facility] Comment on above: Performed By: #### C BC, 29258-9, 23189-6, PINR, 22222-2, BMP, 24044-1, LIVR ####[facility] ([id number])[address] [place] [address] Platelets (Bld) [#/Vol] 432 10*3/uL Normal 150-450 [facility] Comment on above: Performed By: #### C BC, 98809-8, 29678-2, PINR, 95514-1, BMP, 41231-1, LIVR ####[facility] ([id number])[address], [place] [address] RBC COUNT 3.55 X10E12/L Low 3.80-5.20 [facility] Comment on above: Performed By: #### C BC, 04340-6, 34721-8, PINR, 34986-4, BMP, 21706-7, LIVR ####[facility] ([id number])[address] [place] [address] WBC (Bld) [#/Vol] 18.7 10*3/uL High 4.0-11.0 [facility] Comment on above: Performed By: #### C BC, 91089-6, 51740-5, PINR, 18466-0, BMP, 43697-6, LIVR ####[facility] ([id number])[address] [place] [address], [place] [address] [place] BRAIN WO CONTon CT BRAIN WO [...] Pedersen DO on 01/06/2024 7:01 PM Normal [facility] CT BRAIN WO CONT CT BRAIN WO [...] Iglesias MD on 01/05/2024 10:29 PM Normal [facility] CT CEREBRAL PERF ANALYSISon 01-06-2024 CT CEREBRAL [...] Mcdonnell MD on 01/05/2024 11:24 PM Normal [facility] Fibrin D-dimer DDU (PPP) [Ma ss/Vol]on 01-06-2024 D DIMER 594 ng/mL DDU High <255 [facility] Comment on above: Result Comment: Results >=255ng/mL [...] D-Dimer level. Performed By: #### C , 28838-7, 01917-5, PINR, 19911-1, BMP, 85090-8, LIVR ####[facility] ([id number])[address] [facility] [address] [place] [id number] Fibrinogen Coagulation.deriv ed (PPP) [Mass/Vol]on 01-06-2024 FIBRINOGEN 460 mg/dL Normal 190-480 [facility] Comment on above: Performed By: #### C BC, 37405-3, 42657-9, PINR, 12177-0, BMP, 38414-7, LIVR ####[facility] ([id number])[address], [address] [place] [id number] Glucose Glucometer (BldC) [M ass/Vol]on 01-06-2024 Glucose [Mass/Vol] 82 mg/dL Normal 65-99 [facility] Glucose [Mass/Vol] 88 mg/dL Normal 65-99 [facility] Glucose [Mass/Vol] 100 mg/dL High 65-99 [facility] Glucose [Mass/Vol] 111 mg/dL High 65-99 [facility] Heparin induced platelet IgG IA [OD]on 01-06-2024 HEPARIN PF4 ANTIBODY (HIT) 0.099 OD Normal <0.4 [facility] Comment on above: Result Comment: --- O.D. Interpretation--- < 0.400 Negative >= 0.400 Positive LIVER PANELon 01-06-2024 Albumin [Mass/Vol] 2.5 g/dL Low 3.2-5.3 [facility] Comment on above: Performed By: #### C MOISE, 12465-0, 06848-3, PINR, 49187-7, BMP, 84282-8, LIVR ####[facility] ([id number])[address], [address] [place] [id number] ALP [Catalytic activity/Vol] 84 U/L Normal 39-130 [facility] Comment on above: Performed By: #### C BC, 92218-4, 33820-1, PINR, 62441-7, BMP, 05020-1, LIVR ####[facility] ([id number])[address], [address] [place] [address]75 ALT [Catalytic activity/Vol] 17 U/L Normal 0-31 [facility] Comment on above: Performed By: #### C BC, 55057-2, 67259-0, PINR, 80594-3, BMP, 35433-3, LIVR ####[facility] LAB ([id number])[address], [address]TO[facility] [place] [address] AST [Catalytic activity/Vol] 48 U/L High 0-41 [facility] Comment on above: Performed By: #### C BC, 53986-5, 99466-0, PINR, 23273-6, BMP, 64621-4, LIVR ####[facility] ([id number])[address], [address]TO[facility] [place] [address] Bilirubin [Mass/Vol] 0.6 mg/dL Normal 0.3-1.2 [facility] [place] Comment on above: Performed By: #### C BC, 10855-4, 27752-5, PINR, 39623-8, BMP, 36285-5, LIVR ####[facility] ([id number])[address], [address], [place] [address] Bilirubin.direct [Mass/Vol] 0.2 mg/dL Normal 0.0-0.4 [facility] Comment on above: Performed By: #### C BC, 24389-2, 28678-9, PINR, 99640-8, BMP, 18139-2, LIVR ####[facility] ([id number])[address], [address]TO[facility] [place] [address] Protein [Mass/Vol] 4.8 g/dL Low 6.0-8.0 [facility] Comment on above: Performed By: #### C BC, 98020-5, 54488-9, PINR, 98049-1, BMP, 94815-4, LIVR ####[facility] ([id number])[address] [place] [address] Lactate (P charlene) [Moles/Vol]o n 01-06-2024 Lactate [Moles/Vol] 1.4 mmol/L Normal 0.4-2.0 [facility] Comment on above: Performed By: #### 3 2132-1 ####[facility] ([id number])[address], [place] [address] LACTATE W/REFLEX 2.4 mmol/L High 0.4-2.0 [facility] Comment on above: Performed By: #### C BC, 05522-5, 85008-0, PINR, 18250-4, BMP, 01281-7, LIVR ####[facility] ([id number])[address] [place] [address] PROTIME AND INRon 01-06-2024 INR Coag (PPP) [Relative time] 1.6 {INR} High 0.8-1.1 [facility] Comment on above: Performed By: #### C BC, BMP, PINR, 22517-1 ####[facility] ([id number])[address], [address], [place] [address] PT Coag (PPP) [Time] 18.6 s High 9.8-13.2 [facility] [place] Comment on above: Performed By: #### C BC, BMP, PINR, 43566-8 ####[facility] ([id number])[address], [address], [place] [address] INR Coag (PPP) [Relative time] 1.3 {INR} High 0.8-1.1 [facility] Comment on above: Performed By: #### C BC, 84029-9, 28924-3, PINR, 50019-0, BMP, 35044-9, LIVR ####[facility] ([id number])[address], [address], [place] [address] PT Coag (PPP) [Time] 14.8 s High 9.8-13.2 [facility] [place] Comment on above: Performed By: #### C BC, 79371-1, 03517-4, PINR, 50846-3, BMP, 83374-6, LIVR ####[facility] ([id number])[address], [address] [place] [address] XR CHEST 1 VWon 01-06-2024 XR CHEST [...] Pham MD on 01/06/2024 8:06 AM Normal [facility] XR CHEST 1 VW XR CHEST 1 [...] Croft MD on 01/06/2024 2:07 AM Normal [facility] XR CHEST 1 VW XR CHEST 1 [...] Sanders MD on 01/05/2024 11:27 PM Normal [facility] aPTT Coag (PPP) [Time]on aPTT Coag (Bld) [Time] 54 s High 26-37 Pr [facility] Comment on above: Performed By: #### 1 4979-9 ####[facility] ([id number])[address], [address] [place] [address], [place] [address] aPTT Coag (Bld) [Time] 53 s High 26-37 Pr [facility] Comment on above: Performed By: #### 1 4979-9 ####[facility] ([id number])[address], [address], [place] [address] aPTT Coag (Bld) [Time] 60 s High 26-37 Pr [facility] Comment on above: Performed By: #### C BC, BMP, PINR, 48397-8 ####[facility] ([id number])[address], [address], [place] [address] aPTT Coag (Bld) [Time] 47 s High 26-37 Pr [facility] Comment on above: Performed By: #### C BC, 40470-7, 01181-5, PINR, 87132-4, BMP, 10388-8, LIVR ####[facility] ([id number])[address], [place] [address] BASIC METABOLIC PANLon 01-04 Anion gap [Moles/Vol] 10 mmol/L Normal 5-15 [facility] Comment on above: Performed By: #### C BCA #### [facility] ([id number]) [address], [address] [place] [address] Calcium [Mass/Vol] 9.1 mg/dL Normal 8.5-10.5 [facility] Comment on above: Performed By: #### C BCA #### [facility] ([id number]) [address] [address] Chloride [Moles/Vol] 109 mmol/L Normal 98-109 [facility] [place] Comment on above: Performed By: #### C BC, 73408-9, 55430-3, PINR, 42624-8, BMP, 07513-2, LIVR ####[facility] ([id number])[address] [address] Performed By: #### C BCA #### [facility] ([id number]) [address] [address] CO2 [Moles/Vol] 21 mmol/L Low 22-32 [facility] Comment on above: Performed By: #### C BC, 84361-9, 89741-9, PINR, 05821-0, BMP, 56301-6, LIVR ####[facility] ([id number])[address] [address] Performed By: #### C BCA #### [facility] ([id number]) [address] [address] Creatinine [Mass/Vol] 1.11 mg/dL High 0.40-1.00 [facility] Comment on above: Result Comment: METH OD TRACEABLE TO IDMS STANDARD Performed By: #### C BCA #### [facility] ([id number]) [address] [address] GFR/1.73 sq M.predicted among non-blacks MDRD (S/P/Bld) [Vol rate/Area] 51 mL/min/{1.73_m2} Low >59 [facility] Comment on above: Result Comment: Reported eGFR is based on the CKD-EPI 2020 equation that does not use a race coefficient. Performed By: #### C BCA #### [facility] ([id number]) [address], [address] [place] [address] Glucose [Mass/Vol] 75 mg/dL Normal 65-99 [facility] Comment on above: Performed By: #### C BCA #### [facility] ([id number]) [address], [facility] [address] [place] [address] Potassium [Moles/Vol] 4.6 mmol/L Normal 3.5-5.0 [facility] Comment on above: Performed By: #### C BC, 19911-4, 97998-7, PINR, 02215-4, BMP, 48119-4, LIVR ####[facility] ([id number])[address], [address] [address] Performed By: #### C BCA #### [facility] ([id number]) [address], [address] [place] [address] Sodium [Moles/Vol] 140 mmol/L Normal 134-146 [facility] Comment on above: Performed By: #### C BCA #### [facility] ([id number]) [address], [address] [place] [address] Urea nitrogen [Mass/Vol] 10 mg/dL Normal 5-27 [facility] Comment on above: Performed By: #### C BCA #### [facility] ([id number]) [address], [address] [place] [address] Glucose Glucometer (BldC) [M ass/Vol]on 01-05-2024 Glucose [Mass/Vol] 84 mg/dL Normal 65-99 [facility] Insurance Correspondence Off iceon 01-05-2024 Insurance Correspondence Office [phone] [id number]#[id number] Normal [facility] PLATELET COUNT AND MPVon Platelet mean volume (Bld) [Entitic vol] 7.9 fL Normal 7-12 [facility] Comment on above: Performed By: #### C BCA #### [facility] ([id number]) [address], [address] [place] [address] Platelets (Bld) [#/Vol] 516 10*3/uL High 150-450 [facility] Comment on above: Performed By: #### C BCA #### [facility] ([id number]) [address], [address] [place] [address] aPTT Coag (PPP) [Time]on aPTT Coag (Bld) [Time] 140 s Critically high 26-37 [facility] Comment on above: Performed By: #### C BCA #### [facility] ([id number]) [address], [address] [place] [address] BASIC METABOLIC PANLon 01-03 Anion gap [Moles/Vol] 8 mmol/L Normal 5-15 [facility] Comment on above: Performed By: #### C BCA #### [facility] ([id number]) [address], [address] [place] [address] Calcium [Mass/Vol] 9.0 mg/dL Normal 8.5-10.5 [facility] Comment on above: Performed By: #### C BCA #### [facility] ([id number]) [address], [address] [place] [address] Chloride [Moles/Vol] 110 mmol/L High 98-109 [facility] [place] Comment on above: Performed By: #### C BCA #### [facility] ([id number]) [address], [address] [place] [address] CO2 [Moles/Vol] 25 mmol/L Normal 22-32 [facility] Comment on above: Performed By: #### C BCA #### [facility] ([id number]) [address], [address] [place] [address] Creatinine [Mass/Vol] 1.19 mg/dL High 0.40-1.00 [facility] Comment on above: Result Comment: METH OD TRACEABLE TO IDMS STANDARD Performed By: #### C BCA #### [facility] ([id number]) [address], [address] [place] [address] GFR/1.73 sq M.predicted among non-blacks MDRD (S/P/Bld) [Vol rate/Area] 47 mL/min/{1.73_m2} Low >59 [facility] Comment on above: Result Comment: Reported eGFR is based on the CKD-EPI 2020 equation that does not use a race coefficient. Performed By: #### C BCA #### [facility] ([id number]) [address], [address] [place] [address] Glucose [Mass/Vol] 76 mg/dL Normal 65-99 [facility] Comment on above: Performed By: #### C BCA #### [facility] ([id number]) [address], [address] [place] [address] Potassium [Moles/Vol] 4.5 mmol/L Normal 3.5-5.0 [facility] Comment on above: Performed By: #### C BCA #### [facility] ([id number]) [address], [address] [place] [address] Sodium [Moles/Vol] 143 mmol/L Normal 134-146 [facility] Comment on above: Performed By: #### C BCA #### [facility] ([id number]) [address], [address] [place] [address] Urea nitrogen [Mass/Vol] 12 mg/dL Normal 5-27 [facility] Comment on above: Performed By: #### C BCA #### [facility] ([id number]) [address], [address] [place] [address] CBC AND AUTO DIFFon 01-04-20 24 ABSOLUTE BASOPHIL 0.0 X10E9/L Normal 0.0-0.2 [facility] Comment on above: Performed By: #### C BCA #### [facility] ([id number]) [address], [address] [place] [address] ABSOLUTE NEUTROPHIL 5.0 X10E9/L Normal 1.5-6.6 [facility] [place] Comment on above: Performed By: #### C BCA #### [facility] ([id number]) [address], [address] [place] [address] Basophils/100 WBC (Bld) 0.4 % Normal [facility] Comment on above: Performed By: #### C BCA #### [facility] ([id number]) [address], [address] [place] [address] Eosinophils (Bld) [#/Vol] 0.3 10*3/uL Normal 0.0-0.4 [facility] Comment on above: Performed By: #### C BCA #### [facility] ([id number]) [address], [address] [place] [address] Eosinophils/100 WBC (Bld) 3.9 % Normal [facility] Comment on above: Performed By: #### C BCA #### [facility] ([id number]) [address], [address] [place] [address] Erythrocyte distribution width (RBC) [Ratio] 16.9 % High 11.5-15.0 [facility] Comment on above: Performed By: #### C BCA #### [facility] ([id number]) [address], [address] [place] [address] Hematocrit (Bld) [Volume fraction] 34.6 % Low 35-47 [facility] Comment on above: Performed By: #### C BCA #### [facility] ([id number]) [address], [address] [place] [address] Hemoglobin (Bld) [Mass/Vol] 11.2 g/dL Low 11.7-15.5 [facility] Comment on above: Performed By: #### C BCA #### [facility] ([id number]) [address], [address] [place] [address] Lymphocytes (Bld) [#/Vol] 1.5 10*3/uL Normal 1.0-3.5 [facility] Comment on above: Performed By: #### C BCA #### [facility] ([id number]) [address], [address] [place] [address] Lymphocytes/100 WBC (Bld) 19.2 % Normal [facility] Comment on above: Performed By: #### C BCA #### [facility] ([id number]) [address] [place] [address] MCH (RBC) [Entitic mass] 27.9 pg Normal 27-34 [facility] Comment on above: Performed By: #### C BCA #### [facility] ([id number]) [address], [address] [place] [address] MCHC (RBC) [Mass/Vol] 32.5 g/dL Normal 32-36 [facility] Comment on above: Performed By: #### C BCA #### [facility] ([id number]) [address], [address] [place] [address] MCV (RBC) [Entitic vol] 86 fL Normal 80-100 [facility] Comment on above: Performed By: #### C BCA #### [facility] ([id number]) [address], [address] [place] [address] Monocytes (Bld) [#/Vol] 0.8 10*3/uL Normal 0-0.9 [facility] Comment on above: Performed By: #### C BCA #### [facility] ([id number]) [address], [address] [place] [address] Monocytes/100 WBC (Bld) 11.0 % Normal [facility] Comment on above: Performed By: #### C BCA #### [facility] ([id number]) [address], [address] [place] [address] Neutrophils/100 WBC (Bld) 65.5 % Normal [facility] Comment on above: Performed By: #### C BCA #### [facility] ([id number]) [address], [address] [place] [address] Platelet mean volume (Bld) [Entitic vol] 7.7 fL Normal 7-12 [facility] Comment on above: Performed By: #### C BCA #### [facility] ([id number]) [address], [address] [place] [address] Platelets (Bld) [#/Vol] 326 10*3/uL Normal 150-450 [facility] Comment on above: Performed By: #### C BCA #### [facility] ([id number]) [address], [address] [place] [address] RBC COUNT 4.03 X10E12/L Normal 3.80-5.20 [facility] Comment on above: Performed By: #### C BCA #### [facility] ([id number]) [address], [address] [place] [address] WBC (Bld) [#/Vol] 7.7 10*3/uL Normal 4.0-11.0 [facility] Comment on above: Performed By: #### C BCA #### [facility] ([id number]) [address], [address] [place] [address] Glucose Glucometer (BldC) [M ass/Vol]on 01-04-2024 Glucose [Mass/Vol] 86 mg/dL Normal 65-99 [facility] Glucose [Mass/Vol] 96 mg/dL Normal 65-99 [facility] Glucose [Mass/Vol] 110 mg/dL High 65-99 [facility] Glucose [Mass/Vol] 91 mg/dL Normal 65-99 [facility] BASIC METABOLIC PANLon 01-02 Anion gap [Moles/Vol] 9 mmol/L Normal 5-15 [facility] Comment on above: Performed By: #### C BCA #### [facility] ([id number]) [address], [address] [place] [address] Calcium [Mass/Vol] 9.4 mg/dL Normal 8.5-10.5 [facility] Comment on above: Performed By: #### C BCA #### [facility] ([id number]) [address], [address] [place] [address] Chloride [Moles/Vol] 109 mmol/L Normal 98-109 [facility] Comment on above: Performed By: #### C BCA #### [facility] ([id number]) [address], [address] [place] [address] CO2 [Moles/Vol] 23 mmol/L Normal 22-32 [facility] Comment on above: Performed By: #### C BCA #### [facility] ([id number]) [address], [address] [place] [address] Creatinine [Mass/Vol] 1.01 mg/dL High 0.40-1.00 [facility] Comment on above: Result Comment: METH OD TRACEABLE TO IDMS STANDARD Performed By: #### C BCA #### [facility] ([id number]) [address], [address] [place] [address] GFR/1.73 sq M.predicted among non-blacks MDRD (S/P/Bld) [Vol rate/Area] 57 mL/min/{1.73_m2} Low >59 [facility] Comment on above: Result Comment: Reported eGFR is based on the CKD-EPI 2020 equation that does not use a race coefficient. Performed By: #### C BCA #### [facility] ([id number]) [address] [address] [place] [address] Glucose [Mass/Vol] 80 mg/dL Normal 65-99 [facility] Comment on above: Performed By: #### C BCA #### [facility] ([id number]) [address] [address] Potassium [Moles/Vol] 4.1 mmol/L Normal 3.5-5.0 [facility] Comment on above: Performed By: #### C BCA #### [facility] ([id number]) [address] [address] [place] [address] Sodium [Moles/Vol] 141 mmol/L Normal 134-146 [facility] Comment on above: Performed By: #### C BCA #### [facility] ([id number]) [address] [address] Urea nitrogen [Mass/Vol] 13 mg/dL Normal 5-27 [facility] Comment on above: Performed By: #### C BCA #### [facility] ([id number]) [address] [address] C Urineon 01-03-2024 Bacteria identified Cx Nom [...] Locations R1: This test was performed at: [facility], [address] [place] [address], [address] , , Normal [facility] Comment on above: Performed By: #### 2 [id number], [id number] ####[facility] [address] [place] [address] CBC AND AUTO DIFFon 01-03-20 24 ABSOLUTE BASOPHIL 0.1 X10E9/L Normal 0.0-0.2 [facility] Comment on above: Performed By: #### C CHANDLER, 39429-3, BMP, 30946-9 #### [facility] ([id number]) [address], [address] [place] [address] ABSOLUTE NEUTROPHIL 6.8 X10E9/L High 1.5-6.6 [facility] Comment on above: Performed By: #### Vidya ARTEAGA, 74127-3, BMP, 76684-7 #### [facility] ([id number]) [address] [address] Basophils/100 WBC (Bld) 0.6 % Normal [facility] Comment on above: Performed By: #### Vidya BCA, 87750-1, BMP, 18342-7 #### [facility] ([id number]) [address] [address] [place] [address] Eosinophils (Bld) [#/Vol] 0.1 10*3/uL Normal 0.0-0.4 [facility] Comment on above: Performed By: #### Vidya BCA, 87875-9, BMP, 61372-8 #### [facility] ([id number]) [address] [place] [address] Eosinophils/100 WBC (Bld) 1.6 % Normal [facility] Comment on above: Performed By: #### Vidya ARTEAGA, 73598-8, BMP, 59004-8 #### [facility] ([id number]) [address], [facility] [address] [place] [address] Erythrocyte distribution width (RBC) [Ratio] 16.9 % High 11.5-15.0 [facility] Comment on above: Performed By: #### C CHANDLER, 09124-0, BMP, 74571-2 #### [facility] ([id number]) [address], [facility] [address] [place] [address] Hematocrit (Bld) [Volume fraction] 39.9 % Normal 35-47 [facility] Comment on above: Performed By: #### Vidya ARTEAGA, 83298-3, BMP, 05212-5 #### [facility] ([id number]) [address], [facility] [address] [place] [address] Hemoglobin (Bld) [Mass/Vol] 13.0 g/dL Normal 11.7-15.5 [facility] Comment on above: Performed By: #### Vidya ARTEAGA, 03643-5, BMP, 60766-2 #### [facility] ([id number]) [address] [address] [place] [address] Lymphocytes (Bld) [#/Vol] 1.5 10*3/uL Normal 1.0-3.5 [facility] Comment on above: Performed By: #### Vidya BCA, 99239-3, BMP, 50185-9 #### [facility] ([id number]) [address] [address] [place] [address] Lymphocytes/100 WBC (Bld) 16.4 % Normal [facility] Comment on above: Performed By: #### Vidya BCA, 03060-4, BMP, 58677-5 #### [facility] ([id number]) [address] [place] [address] MCH (RBC) [Entitic mass] 28.1 pg Normal 27-34 [facility] Comment on above: Performed By: #### Vidya BCA, 19078-8, BMP, 18330-5 #### [facility] ([id number]) [address] [place] [address] MCHC (RBC) [Mass/Vol] 32.6 g/dL Normal 32-36 [facility] Comment on above: Performed By: #### Vidya BCA, 94048-3, BMP, 36128-8 #### [facility] ([id number]) [address] [place] [address] MCV (RBC) [Entitic vol] 86 fL Normal 80-100 [facility] Comment on above: Performed By: #### Vidya BCA, 48869-0, BMP, 24998-1 #### [facility] ([id number]) [address] [place] [address] Monocytes (Bld) [#/Vol] 0.7 10*3/uL Normal 0-0.9 [facility] Comment on above: Performed By: #### Vidya BCA, 73778-2, BMP, 91027-5 #### [facility] ([id number]) [address], [address] [place] [address] Monocytes/100 WBC (Bld) 7.5 % Normal [facility] Comment on above: Performed By: #### Vidya BCA, 82479-2, BMP, 86532-2 #### [facility] ([id number]) [address], [address] [place] [address] Neutrophils/100 WBC (Bld) 73.9 % Normal [facility] Comment on above: Performed By: #### Vidya BCA, 33273-8, BMP, 93569-1 #### [facility] ([id number]) [address], [address] [place] [address] Platelet mean volume (Bld) [Entitic vol] 7.6 fL Normal 7-12 [facility] Comment on above: Performed By: #### C BCA, 02214-0, BMP, 75365-9 #### [facility] ([id number]) [address], [facility] [address] [place] [address] Platelets (Bld) [#/Vol] 453 10*3/uL High 150-450 [facility] Comment on above: Performed By: #### C BCA, 48501-6, BMP, 04322-6 #### [facility] ([id number]) [address] [facility] [address] [place] [address] RBC COUNT 4.63 X10E12/L Normal 3.80-5.20 [facility] Comment on above: Performed By: #### Vidya BCA, 20287-4, BMP, 29677-7 #### [facility] ([id number]) [address] [facility] [address] [place] [address] WBC (Bld) [#/Vol] 9.3 10*3/uL Normal 4.0-11.0 [facility] Comment on above: Performed By: #### Vidya BCA, 89848-5, BMP, 04831-0 #### [facility] ([id number]) [address], [address] [place] [address] CT CTA CAROTIDon 01-03-2024 CT CTA CAROTID [...] Hardy MD on 01/02/2024 10:46 PM Normal [facility] Glucose Glucometer (BldC) [M ass/Vol]on 01-03-2024 Glucose [Mass/Vol] 108 mg/dL High 65-99 [facility] Glucose [Mass/Vol] 123 mg/dL High 65-99 [facility] Glucose [Mass/Vol] 65 mg/dL Normal 65-99 [facility] Lipid 1996 panelon 4 Cholesterol [Mass/Vol] 136 mg/dL Low 150-200 [facility] Comment on above: Performed By: #### C BCA #### [facility] ([id number]) [address], [address] [place] [address] Cholesterol in HDL [Mass/Vol] 47 mg/dL Normal >39 [facility] Comment on above: Result Comment: HDL <40 mg/dL - High Risk HDL > or = 40mg/dL- Desirable HDL >60 mg/dL - Negative Risk Performed By: #### C BCA #### [facility] ([id number]) [address], [address] [place] [address] Cholesterol in LDL [Mass/Vol] 69 mg/dL Normal <130 [facility] Comment on above: Result Comment: LDL <100 mg/dL - Desirable LDL >160 mg/dL - High Risk Performed By: #### C BCA #### [facility] ([id number]) [address], [address] [place] [address] Cholesterol in VLDL [Mass/Vol] 20 mg/dL Normal 0-30 [facility] Comment on above: Performed By: #### C BCA #### [facility] ([id number]) [address], [address] [place] [address] CHOLESTEROL:HDL 2.9 Normal 1.0-5.0 [facility] Comment on above: Performed By: #### C BCA #### [facility] ([id number]) [address], [address] [place] [address] Triglyceride [Mass/Vol] 98 mg/dL Normal 27-150 [facility] Comment on above: Performed By: #### C BCA #### [facility] ([id number]) [address], [address] [place] [address] TROPONIN Ion 01-03-2024 Troponin I.cardiac [Mass/Vol] 0.02 ng/mL Normal 0.00-0.04 [facility] Comment on above: Performed By: #### C BCA #### [facility] ([id number]) [address], [address] [place] [address] Troponin I.cardiac [Mass/Vol] 0.02 ng/mL Normal 0.00-0.04 [facility] Comment on above: Performed By: #### 1 0839-9 #### [facility] ([id number]) [address], [address] [place] [address] ABO/Rh History Checkon 01-01 ABO/Rh History Check Patient discharged prior Normal [facility] Comment on above: Performed By: #### 1 [id number], [id number], [id number], [id number] ####[facility] [address] [place] [address] BASIC METABOLIC PANLon 01-01 Anion gap [Moles/Vol] 8 mmol/L Normal 5-15 [facility] Comment on above: Performed By: #### B MP #### [facility] ([id number]) [address], [address] [place] [address] Calcium [Mass/Vol] 8.9 mg/dL Normal 8.5-10.5 [facility] Comment on above: Performed By: #### B MP #### [facility] ([id number]) [address], [address] [place] [address] Chloride [Moles/Vol] 109 mmol/L Normal 98-109 [facility] [place] Comment on above: Performed By: #### B MP #### [facility] ([id number]) [address], [address] [place] [address] CO2 [Moles/Vol] 22 mmol/L Normal 22-32 [facility] Comment on above: Performed By: #### B MP #### [facility] ([id number]) [address], [address] [place] [address] Creatinine [Mass/Vol] 0.87 mg/dL Normal 0.40-1.00 [facility] Comment on above: Result Comment: METH OD TRACEABLE TO IDMS STANDARD Performed By: #### B MP #### [facility] ([id number]) [address] [place] [address] GFR/1.73 sq M.predicted among non-blacks MDRD (S/P/Bld) [Vol rate/Area] 68 mL/min/{1.73_m2} Normal >59 [facility] Comment on above: Result Comment: Reported eGFR is based on the CKD-EPI 2020 equation that does not use a race coefficient. Performed By: #### B MP #### [facility] ([id number]) [address] [place] [address] Glucose [Mass/Vol] 108 mg/dL High 65-99 [facility] Comment on above: Performed By: #### B MP #### [facility] ([id number]) [address] [place] [address] Potassium [Moles/Vol] 4.1 mmol/L Normal 3.5-5.0 [facility] Comment on above: Performed By: #### B MP #### [facility] ([id number]) [address] [place] [address] Sodium [Moles/Vol] 139 mmol/L Normal 134-146 [facility] Comment on above: Performed By: #### B MP #### [facility] ([id number]) [address] [address] Urea nitrogen [Mass/Vol] 13 mg/dL Normal 5-27 [facility] Comment on above: Performed By: #### B MP #### [facility] ([id number]) [address] [place] [address] CBC AND AUTO DIFFon 01-02-20 24 ABSOLUTE BASOPHIL 0.0 X10E9/L Normal 0.0-0.2 [facility] Comment on above: Performed By: #### C BCA #### [facility] ([id number]) [address] [place] [address] ABSOLUTE NEUTROPHIL 7.3 X10E9/L High 1.5-6.6 [facility] [place] Comment on above: Performed By: #### C BCA #### [facility] ([id number]) [address], [address] [place] [address] Basophils/100 WBC (Bld) 0.4 % Normal [facility] Comment on above: Performed By: #### C BCA #### [facility] ([id number]) [address] [place] [address] Eosinophils (Bld) [#/Vol] 0.2 10*3/uL Normal 0.0-0.4 [facility] Comment on above: Performed By: #### C BCA #### [facility] ([id number]) [address] [place] [address] Eosinophils/100 WBC (Bld) 1.8 % Normal [facility] Comment on above: Performed By: #### C BCA #### [facility] ([id number]) [address], [address] [place] [address] Erythrocyte distribution width (RBC) [Ratio] 17.0 % High 11.5-15.0 [facility] Comment on above: Performed By: #### C BCA #### [facility] ([id number]) [address] [place] [address] Hematocrit (Bld) [Volume fraction] 38.0 % Normal 35-47 [facility] Comment on above: Performed By: #### C BCA #### [facility] ([id number]) [address] [place] [address] Hemoglobin (Bld) [Mass/Vol] 12.3 g/dL Normal 11.7-15.5 [facility] Comment on above: Performed By: #### C BCA #### [facility] ([id number]) [address] [place] [address] Lymphocytes (Bld) [#/Vol] 0.8 10*3/uL Low 1.0-3.5 [facility] Comment on above: Performed By: #### C BCA #### [facility] ([id number]) [address] [place] [address] Lymphocytes/100 WBC (Bld) 9.1 % Normal [facility] Comment on above: Performed By: #### C BCA #### [facility] ([id number]) [address] [place] [address] MCH (RBC) [Entitic mass] 28.2 pg Normal 27-34 [facility] Comment on above: Performed By: #### C BCA #### [facility] ([id number]) [address], [address] [place] [address] MCHC (RBC) [Mass/Vol] 32.5 g/dL Normal 32-36 [facility] Comment on above: Performed By: #### C BCA #### [facility] ([id number]) [address] [place] [address] MCV (RBC) [Entitic vol] 87 fL Normal 80-100 [facility] Comment on above: Performed By: #### C BCA #### [facility] ([id number]) [address] [place] [address] Monocytes (Bld) [#/Vol] 0.6 10*3/uL Normal 0-0.9 [facility] Comment on above: Performed By: #### C BCA #### [facility] ([id number]) [address] [place] [address] Monocytes/100 WBC (Bld) 6.6 % Normal [facility] Comment on above: Performed By: #### C BCA #### [facility] ([id number]) [address], [address] [place] [address] Neutrophils/100 WBC (Bld) 82.1 % Normal [facility] Comment on above: Performed By: #### C BCA #### [facility] ([id number]) [address], [address] [place] [address] Platelet mean volume (Bld) [Entitic vol] 7.5 fL Normal 7-12 [facility] Comment on above: Performed By: #### C BCA #### [facility] ([id number]) [address] [place] [address] Platelets (Bld) [#/Vol] 371 10*3/uL Normal 150-450 [facility] Comment on above: Performed By: #### C BCA #### [facility] ([id number]) [address] [place] [address] RBC COUNT 4.38 X10E12/L Normal 3.80-5.20 [facility] Comment on above: Performed By: #### C BCA #### [facility] ([id number]) [address] [place] [address] WBC (Bld) [#/Vol] 8.9 10*3/uL Normal 4.0-11.0 [facility] Comment on above: Performed By: #### C BCA #### [facility] ([id number]) [address] [place] [address] Glucose Glucometer (dC) [M ass/Vol]on 01-02-2024 Glucose [Mass/Vol] 111 mg/dL High 65-99 [facility] Glucose [Mass/Vol] 68 mg/dL Normal 65-99 [facility] Glucose [Mass/Vol] 72 mg/dL Normal 65-99 [facility] Glucose [Mass/Vol] 78 mg/dL Normal 65-99 [facility] HGB A1C (GLYCO-HGB)on 2023 Glucose [Mass/Vol] 105 mg/dL Normal [facility] Comment on above: Performed By: #### C BCA #### [facility] ([id number]) [address] [place] [address], [address] [place] [address] HbA1c (Bld) [Mass fraction] 5.3 % Normal 4.4-5.6 [facility] Comment on above: Result Comment: NOTE ADA Guidelines Result HgbA1c Normal : less than 5.7 % Prediabetes : 5.7 % to 6.4 % Diabetes : > 6.4 % Use with caution in patients with abnormal hemoglobin variants as the half-life of red blood cells and in vivo glycation rates are affected. Performed By: #### C BCA #### [facility] ([id number]) [address] [place] [address], [address] [place] [address] Insurance Correspondence Off iceon 01-02-2024 Insurance Correspondence Office [id number]#1.00TIFF Normal [facility] Monitor Recordon 01-02-2024 Monitor Record [id number]#1.00TIFF Normal [facility] Monitor Record [id number]#1.00TIFF Normal [facility] Progress Note-Physicianon Progress Note-Physician 1239- Call placed to [facility] for transfer of neurologic care. Spoke with Dr. Chicas with neuro intervention. He would like to evaluate her MRI scans to determine plan of action and we will reconference. Normal [facility] Comment on above: Result Comment: Elec tronically Signed By: Flor Poole\.br\Date and Time Signed: 01/01/24 12:55 EST\.br\Electronically Co-Signed By: Kevin TAMEZ, Daniel\.br\Date and Time Co-Signed: 01/02/24 13:52 EST Transfer Documentson 024 Transfer Documents [id number]#1.00TIFF Normal [facility] ABO/Rhon 01-01-2024 ABO/Rh Negative Invalid Interpretation Code [facility] Comment on above: Performed By: #### 1 [id number], 24144598, 0740056, [id number] ####[facility] [address] [place] [address] ABSCon 01-01-2024 ABSC Gel Interp Negative Normal [facility] Comment on above: Performed By: #### 1 9034122, 73129885, 8514970, 61443255 ####[facility] [address] [place] [address] BLOOD BANKOrdered By: Tootie Yancey on 01-01-2024 ABO/Rh Interp Negative Invalid Interpretation Code [facility] BB Subsection ABSC Gel Interp Negative (01/01/24 6:42 AM) Normal [facility] BB Subsection Blood Bank ID#on 01-01-2024 BBID# [id number] Invalid Interpretation Code [facility] Comment on above: Performed By: #### 1 [id number], 23604738, 9184639, 79286113 ####[facility] [address] [place] [address] CBC w/Indiceson 01-01-2024 Erythrocyte distribution width (RBC) [Ratio] 17.1 % High 10.9-14.2 [facility] Comment on above: Performed By: #### 1 2780830, 5000391, 0440088, 59943253, 8338429, 8123362 ####[facility] [address] [place] [address] Hematocrit (Bld) [Volume fraction] 40.3 % Normal 34.0-46.0 [facility] Comment on above: Performed By: #### 1 7451121, 5825915, 7386625, 14842071, 0686913, 6316606 ####[facility] [address] [place] [address] Hemoglobin (Bld) [Mass/Vol] 12.7 g/dL Normal 12.0-16.0 [facility] Comment on above: Performed By: #### 1 2690039, 6413819, 9262700, 95436348, 2468272, 9537509 ####[place] [address] [place] [address] MCH (RBC) [Entitic mass] 27.3 pg Normal 27.0-34.0 [facility] Comment on above: Performed By: #### 1 7204792, 4229149, 5078874, 58457322, 1620236, 5475073 ####[place] [address] MCHC (RBC) [Mass/Vol] 31.6 g/dL Normal 31.4-36.0 [facility] Comment on above: Performed By: #### 1 8956327, 6105933, 2810392, 05065550, 3848463, 5414980 ####[place] [address] MCV (RBC) [Entitic vol] 86.4 fL Normal 80.0-100.0 [facility] Comment on above: Performed By: #### 1 7571155, 6253933, 9162627, 23141824, 2979107, 2522667 ####[place] [address] Platelet 485.0 E9/L Normal 150.0-500. 0 [facility] Comment on above: Performed By: #### 1 6400250, 5352343, 2969524, 57168152, 3268452, 6429056 ####[place] [address] Platelet mean volume (Bld) [Entitic vol] 7.3 fL Normal 6.4-10.8 [facility] Comment on above: Performed By: #### 1 7334716, 1471687, 7137773, 69359744, 6360329, 2150855 ####[facility] [address] [place] [address] RBC (Bld) [#/Vol] 4.7 E12/L Normal 4.3-5.9 [facility] Comment on above: Performed By: #### 1 6430714, 2858987, 5387960, 55315783, 8209122, 5942980 ####[facility] [address] [place] [address] RBC size Nom (Bld) NORMAL Invalid Interpretation Code [facility] Comment on above: Performed By: #### 1 4716247, 9786625, 3004652, 70516857, 6332280, 0892141 ####[facility] [address] [place] [address] WBC corrected for nucl RBC Auto (Bld) [#/Vol] 10.2 E9/L Normal 4.0-11.0 [facility] Comment on above: Performed By: #### 1 4487785, 8475476, 9079076, 53026699, 7899977, 1241350 ####[facility] [address] [place] [address] CHEMISTRYOrdered By: Lab ROP User on 01-01-2024 Glucose [Mass/Vol] 154 mg/dL High 55 - 99 mg/dL [facility] POC Subsection Comment on above: Result Comment: Zhao chavez RN/ POC Device SN [id number] 1 Invalid Interpretation Code [facility] POC Subsection POC User ID [id number] 1 Invalid Interpretation Code [facility] POC Subsection POC Username CARMELINA ROMAN Invalid Interpretation Code [facility] POC Subsection CHEMISTRYOrdered By: SYSTEM SYSTEM on [...] 01-01-2024 Albumin [Mass/Vol] 3.4 g/dL Normal 3.3-5.0 [facility] Comment on above: Performed By: #### 1 4017112, 4419736, 5105458, 44680647, 1874441, 2092157 ####[facility] [address] [place] [address] Albumin/Globulin (S) [Mass conc ratio] 1.0 Low 1.1-2.2 [facility] Comment on above: Performed By: #### 1 5196825, 4291542, 3785858, 79850190, 8105542, 4002820 ####[facility] [address] [place] [address] ALP [Catalytic activity/Vol] 91 Int._Unit/L Normal 21-98 [facility] Comment on above: Performed By: #### 1 4936243, 7999186, 2036503, 91486900, 0380145, 2767839 ####[facility] [address] [place] [address] ALT No additional P-5'-P [Catalytic activity/Vol] 7 Int._Unit/L Normal 6-46 [facility] Comment on above: Performed By: #### 1 0605855, 2178875, 1793569, 40049017, 3085852, 4760171 ####[facility] [address] [place] [address] Anion gap [Moles/Vol] 13 mmol/L Normal 6-16 [facility] Comment on above: Performed By: #### 1 7729530, 4121608, 2406646, 91622086, 7241748, 4391359 ####[facility] [address] [place] [address] AST [Catalytic activity/Vol] 12 Int._Unit/L Normal 5-43 [facility] Comment on above: Performed By: #### 1 5065519, 9197721, 4506668, 12383181, 7701903, 7861286 ####[facility] [address] [place] [address] Bilirubin [Mass/Vol] 0.7 mg/dL Normal 0.0-1.1 [facility] Comment on above: Performed By: #### 1 9788858, 8162785, 1403951, 45479269, 8843687, 5282502 ####[facility] [address] [place] [address] Calcium [Mass/Vol] 9.7 mg/dL Normal 8.9-11.1 [facility] Comment on above: Performed By: #### 1 0735822, 0744851, 5826365, 31770486, 1466698, 1464885 ####[facility] [address] [place] [address] Chloride [Moles/Vol] 108 mmol/L Normal 101-111 [facility] Comment on above: Performed By: #### 1 1145148, 8633441, 5238497, 72904893, 9881510, 3559928 ####[facility] [address] [place] [address] CO2 [Moles/Vol] 23 mmol/L Normal 21-31 [facility] Comment on above: Performed By: #### 1 8773124, 4456029, 2415411, 45108134, 5090554, 5978164 ####[facility] [address] [place] [address] Creatinine [Mass/Vol] 1.0 mg/dL Normal 0.5-1.3 [facility] Comment on above: Performed By: #### 1 0765055, 0975823, 1470566, 46074204, 7953911, 1671854 ####[facility] [address] [place] [address] Globulin (S) [Mass/Vol] 3.4 g/dL Normal 1.4-4.0 [facility] Comment on above: Performed By: #### 1 5880479, 3640858, 8319076, 91681460, 1912858, 2632324 ####[facility] [address] [place] [address] Glucose [Mass/Vol] 89 mg/dL Normal 55-199 [facility] Comment on above: Performed By: #### 1 1578637, 6811447, 6455365, 29225569, 8775822, 9574954 ####[facility] [address] [place] [address] Potassium [Moles/Vol] 4.5 mmol/L Normal 3.5-5.3 [facility] Comment on above: Performed By: #### 1 0507451, 1683244, 9136042, 27858671, 0720443, 2935311 ####[facility] [address] [place] [address] Protein [Mass/Vol] 6.8 g/dL Normal 6.0-7.8 [facility] Comment on above: Performed By: #### 1 1174865, 5979225, 2538564, 21213465, 8762986, 0700726 ####[facility] [address] [place] [address] Sodium [Moles/Vol] 139 mmol/L Normal 135-145 [facility] Comment on above: Performed By: #### 1 5859987, 8967291, 9230594, 18825724, 5159583, 4901346 ####[facility] [address] [place] [address] Urea nitrogen [Mass/Vol] 12 mg/dL Normal 5-21 [facility] Comment on above: Performed By: #### 1 0681677, 1124933, 8247457, 85307231, 8046813, 6685306 ####[facility] [address] [place] [address] Urea nitrogen/Creatinine [Mass ratio] 12 No Units Normal 10-20 [facility] Comment on above: Performed By: #### 1 9589936, 4328655, 7386852, 55340177, 2293717, 0787712 ####[facility] [address] [place] [address] COAGULATIONOrdered By: Juana Mitchell on 03-07-2024 aPTT Coag (PPP) [Time] 37.2 s High 25.1 - 36.5 second(s) [facility] Auto Coag Comment on above: Interpretive Data: [...] the same coagulation reagent and instrumentation as [facility]. Currently there are no coagulation studies available worldwide for children to 14 days, and no normal ranges. Heparin therapeutic range (represented by Anti-Factor Xa activity of 0.2 - 0.4 U/mL) corresponds to PTT of 56.6 - 109.0 sec. INR Coag (PPP) [Relative time] 0.93 {INR} Invalid Interpretation Code [facility] Auto Coag Comment on above: Interpretive Data: I NR results are specifically intended to assess patients stabilized on long-term Anticoagulation therapy suggested INR s Less Intensive Anticoagulation 2.0 3.0 Conventional Range 3.0 4.5 PT Coag (PPP) [Time] 10.4 s Normal 9.4 - 1 2.5 second(s) [facility] Auto Coag Comment on above: Interpretive Data: [...] the same coagulation reagent and instrumentation as [facility]. Currently there are no coagulation studies available [...] M.D. Transcribed by: TREVON Technologist: NATI Cabrera [facility] CT Spine Cervical w/o Kaya chatterjee 01-01-2024 [...] M.D. Transcribed by: DP Technologist: NATI Normal [facility] Capillary Glucose POCon Glucose [Mass/Vol] 154 mg/dL High 55-99 [facility] Comment on above: Result Comment: Zhao chavez RN/ Performed By: #### 2 [id number] ####[facility] [address] [place] [address] Consent for Treatmenton Consent for Treatment [id number]#1.00TIFF Normal [facility] ED Clinical Summaryon 2023 ED Clinical Summary (Inserted Image. Nata ble to display) [address] [address] ED Clinical Summary Person Information Name: ALICIA BARRIENTOS [place] Age: 78 Years : 1945 Sex: Female Language: German PCP: Amarilis TORRES MD Marital Status: Visit Id: Visit Reason: Fall; Trauma - minor; Shoulder pain-swelling; FALL RT SIDE PAIN Speciality: Acuity: 3 Enc Type: Inpatient Med Service: Emergency Arrival: 01/01/2024 06:22:07 Discharge: LOS: 000 04:16 Checkin: 01/01/2024 06:22:07 Checkout: 01/01/2024 10:38:14 Dispo Type: Admitted as IP to this [facility] EVENTS: Event Name Event Status Request Date/Time [...] 01/01/2024 10:21:03 01/01/2024 10:22:08 ADDRESS: [address] [facility] [id number] [facility] DOC NOTES: MEDICAL INFORMATION: Prescriptions Given: [...] DIAGNOSIS: Accidental fall; Right sided weakness Normal [facility] ED Note-Physicianon 01-01-20 ED Note-Physician Basic Information Time Seen: Benjamín Ibanez DO 01/01/2024 06:54 Chief Complaint states [...] Atherosclerosis of (more content not included)... Normal [facility] Comment on above: Result Comment: Elec tronically Signed By: Benjamín Ibanez DO\.br\Date and Time Signed: 01/01/24 09:57 EST ED Patient Education Noteon 01-01-2024 ED Patient Education Note Normal [facility] ED Patient Summaryon 024 ED Patient Summary (Inserted Image. Nata ble to display) [place] [id number] Patient Discharge Instructions Person Information Name: ALICIA BARRIENTOS Age: 78 Years Arrival Date: 01/01/2024 06:22:07 Discharge Diagnosis: Accidental fall; Right sided weakness Primary Care Physician: Amarilis TORRES MD Provider Information Primary Provider: Benjamín Ibanez DO Advanced Bull Driver:None The exam and treatment you received in the Emergency Department were for an urgent problem and are not intended as complete care. It is important that you follow up with a doctor, nurse practitioner, or physician?s assistant film editor for ongoing care. If your symptoms become [...] opioids can be used to help relieve qxaztwfy-qe-yybimt pain and are often prescribed following a [...] be struggling with addiction, tell your health critical care cns and ask for guidance or call [facility]?S National Helpline at 6-968-202-VVUD. g Source: [place] Department of Health and Human Services/Center for Disease Control & Prevention [facility] Medications Given: Medication Do (more content not included)... Normal [facility] ED Traumaon 01-01-2024 ED Trauma [id number]#1.00TIFF Normal [facility] HEMATOLOGYOrdered By: SYSTEM SYSTEM on 01-01-2024 Erythrocyte [...] Erwin e Manageron 01-01-2024 Interdisciplinary Note - Punch Finisher CRM to room to discuss DC planning. [...] notes. Patient is pending a transfer to [place]. CRM provided contact info, white board updated. CRM following Normal [facility] Comment on above: Result Comment: Elec tronically Signed By: Marleny Villasenor\.br\Date and Time Signed: 01/01/24 13:36 EST Interdisciplinary Note - PTo n 01-01-2024 Interdisciplinary Note - PT Order received and chart reviewed with nursing who reports pt to be discharged to another facility. Will d/c PT orders at this time Normal [facility] Interdisciplinary Note - Spe ech Languageon 01-01-2024 Interdisciplinary Note - Speech Language ST 01/01/24 1445: per nursing, pt passed dysphagia screen. swallow eval not indicated at this time. nursing also reports there are no other speech/cog concerns. pt to be discharging to [facility], orders discharged at this time. Normal [facility] Laboratory - Microbiology an d Antimicrobial susceptibilityOrdered By: Sonia Clinton on 01-01-2024 Bacteria identified Cx Nom (U) 75,000 cfu/ml Viridans Streptococcus Group Presumptive isolated. Therapeutic Options: Penicillin or ceftriaxone, with or without an aminoglycoside; vancomycin is used in cases of penicillin allergies and beta-lactam resistance. [facility] MRA Head w/o Contraston MRA Head w/o Contrast Exam Date/Time: 01/01/2024 11:23 EST Reason for Exam: CVA Report IMPRESSION: STABLE HEAD MRA FROM 02/04/2019. EXAM: MRA Head w/o Contrast DATE: 01/01/2024 10:22 AM CLINICAL HISTORY: CVA. COMPARISON: 02/04/2019. TECHNIQUE: Three-dimensional tprt-xe-bbuzxt MRA of the intracranial arterial circulation was [...] TREVON Technologist: JOSE, Technical Comments None Normal [facility] MRA Neck w/o Contraston MRA Neck w/o [...] COMPARISON: None available. TECHNIQUE: 2D and 3D nzwo-kb-dazxzw MRA of the neck arterial circulation was [...] TREVON Technologist: JOSE, Technical Comments None Normal [facility] MRI Brain w/o Contraston MRI Brain w/o [...] 12:06 EST by Elio Alexis MD Normal [facility] Message from Medicareon Message from Medicare [id number]#1.00TIFF Normal [facility] PTon 01-01-2024 INR Coag (PPP) [Relative time] 0.93 {INR} Invalid Interpretation Code [facility] Comment on above: Result Comment: INR results are specifically intended to assess patients stabilized on long-term Anticoagulation therapy suggested INR?s ?Less Intensive Anticoagulation? 2.0 ? 3.0 Conventional Range 3.0 ? 4.5 Performed By: #### 1 7930109, 0806082, 2510396, 19989706, 6514650, 0881391 ####[facility] [address] [place] [address] PT Coag (PPP) [Time] 10.4 second(s) Normal 9.4-12.5 [facility] Comment on above: Result Comment: 15 d ays - 4 weeks 1 - 5 months 6 -11 months 1- 5 years 6-10 years 11 -17 years Mean: 11.2 (9.5-12.6) Mean: 11.0 (9.7-12.8) Mean: 11.0 (9.8-13.0) Mean: 11.3 (9.9-13.4) Mean: 11.7 (10.0-14.6) Mean: 11.8 (10.0 - 14.1) Pediatric Reference ranges were obtained from a study by Roberto [place], et al. prepared from 1437 samples obtained at 7 different centers using the same coagulation reagent and instrumentation as [facility]. Currently there are no coagulation studies available worldwide for children to 14 days, and no normal ranges. Performed By: #### 1 5655068, 5407797, 8493544, 91980915, 8686228, 3567133 ####[facility] [address] [place] [address] PTTon 01-01-2024 aPTT Coag (PPP) [Time] 37.2 second(s) High 25.1-36.5 [facility] Comment on above: Result Comment: Para meter [...] the same coagulation reagent and instrumentation as [facility]. Currently there are no coagulation studies available worldwide for children to 14 days, and no normal ranges. Heparin therapeutic range (represented by Anti-Factor Xa activity of 0.2 - 0.4 U/mL) corresponds to PTT of 56.6 - 109.0 sec. Performed By: #### 1 9635103, 4452580, 4365413, 47865134, 4454714, 4517356 ####[facility] [address] [place] [address] RAD - MRI Screening Formon 0 01-01-2024 RAD - MRI Screening Form [id number]#1.00TIFF Normal [facility] RAD - Preliminary Cat Scan R eporton 01-01-2024 RAD - Preliminary Cat Scan Report [id number]#1.00TIFF Normal [facility] Troponin 0 Hr.on 01-01-2024 Troponin 11.30 pg/mL Normal 10.10-27.1 0 [facility] Comment on above: Result Comment: The 95% CI (Confidence Interval) PPV (Positive Predictive Value) for myocardial infarction in females is 38 pg/mL, in males 51 pg/mL. The results should be used in conjunction with clinical conditions of myocardial infarction. (Access High Sensitivity Troponin I Instructions For Use, Zhang Shabnam, May 2018) Performed By: #### 1 3221558, 9328715, 2207673, 72855921, 7325961, 5145328 ####[facility] [address] [place] [address] UA With Cult Reflexon 2023 Bacteria LM Ql (Urine sed) TRACE Normal Trace [facility] Comment on above: Performed By: #### 2 474872, 83703316 ####[facility] [address] [place] [address] Bilirubin Ql (U) Negative Normal Negative [facility] Comment on above: Performed By: #### 2 105249, 58337037 ####[facility] [address] [place] [address] Clarity (U) CLEAR Normal Clear [facility] Comment on above: Performed By: #### 2 987884, 27689505 ####[facility] [address] [place] [address] Color (U) YELLOW Normal Yellow [facility] Comment on above: Performed By: #### 2 232356, 66788864 ####[facility] [address] [place] [address] Crystals LM Ql (Urine sed) Present Normal [facility] Comment on above: Performed By: #### 2 589599, 47446526 ####[facility] [address] [place] [address] Epithelial cells.squamous LM.HPF (Urine sed) [#/Area] 3-4 Normal 0-2 [facility] Comment on above: Performed By: #### 2 598979, 38745093 ####[facility] [address] [place] [address] Glucose Test strip (U) [Mass/Vol] Negative Normal Negative [facility] Comment on above: Performed By: #### 2 355534, 62757660 ####[facility] [address] [place] [address] Hemoglobin Ql (U) Negative Normal Negative [facility] Comment on above: Performed By: #### 2 952462, 01104384 ####[address] [address] Ketones (U) [Mass/Vol] Negative Normal Negative [facility] Comment on above: Performed By: #### 2 183564, 08192898 ####[address] [address] Omak.plasma/Omak .RBC (Bld) [Mass ratio] 0-3 Normal 0-3 [facility] Comment on above: Performed By: #### 2 853693, 81835416 ####[address] [address] Mucus Ql (Urine sed) TRACE Normal Fish [facility] Comment on above: Performed By: #### 2 511042, 79530804 ####[address] [address] Nitrite Ql (U) Negative Normal Negative [facility] Comment on above: Performed By: #### 2 835578, 95879565 ####[address] [address] pH (U) 7.0 [pH] Invalid Interpretation Code 5.0-9.0 [facility] Comment on above: Performed By: #### 2 495296, 04369362 ####[address] [address] Protein (U) [Mass/Vol] Negative Normal Negative [facility] Comment on above: Performed By: #### 2 800630, 90122209 ####[address] [address] Specific gravity (U) [Rel density] 1.010 Invalid Interpretation Code 1.005-1.03 0 [facility] Comment on above: Performed By: #### 2 389970, 44249323 ####[facility] [address] [place] [address] Type of Urine collection method Clean Catch Normal [facility] Comment on above: Performed By: #### 2 205210, 22664144 ####[facility] [address] [place], [place] [address] Urobilinogen Qn (U) 0.2 {Chan'U}/dL Normal 0.0-1.0 [facility] Comment on above: Performed By: #### 2 910215, 02300080 ####[place] [address] WBC Auto Ql (U) 1+ Abnormal Negative [facility] Comment on above: Performed By: #### 2 304592, 98980426 ####[facility] [address] [place] [address] WBC LM.HPF (Urine sed) [#/Area] 6-15 Abnormal 0-5 [facility] Comment on above: Performed By: #### 2 155717, 53027552 ####[facility] [address] [place] [address] URINALYSISOrdered By: Tootie Mitchell on 01-01-2024 Bacteria [...] AM) Normal Negative [facility] UA Auto SS Omak.plasma/Omak .RBC (Bld) [Mass ratio] 0-3 /HPF Normal 0-3/HPF [facility] UA Auto SS Mucus Ql (Urine sed) Trace (01/01/24 8:42 AM) Normal [facility] UA Auto SS Nitrite Ql (U) Negative (01/01/24 8:42 AM) Normal Negative [facility] UA Auto SS pH (U) 7.0 *NA* (01/01/24 8:42 AM) Invalid Interpretation Code 5.0 - 9.0 [facility] UA Auto SS Protein (U) [Mass/Vol] Negative (01/01/24 8:42 AM) Normal Negative [facility] UA Auto SS Specific gravity (U) [Rel density] 1.010 *NA* (01/01/24 8:42 AM) Invalid Interpretation Code 1.005 - 1.030 [facility] UA Auto SS UA Spec Desc Clean Catch (01/01/24 8:42 AM) Normal [facility] UA Auto SS Urobilinogen Qn (U) 0.5140410 {Chan'U}/dL Normal 0.0 - 1.0 EU/dL FT UA Auto SS WBC Auto Ql (U) 1+ *ABN* (01/01/24 8:42 AM) Invalid Interpretation Code Negative [facility] UA Auto SS WBC LM.HPF (Urine sed) [...] mGy = na DAP = na Normal [facility] eGFRon 01-01-2024 eGFR 57 mL/min/1.73 m2 Low >=59 [facility] Comment on above: Order Comment: Order added by Discern Expert. Performed By: #### 1 8798200, 8723928, 7164469, 93192202, 5596089, 7632372 ####[facility] [address] [place] [address] PT - Assessmentson PT - Assessments [id number]#1.00TIFF Normal [facility] PT - Assessments [id number]#1.00TIFF Normal [facility] Ambulatory Visit Summaryon 0 12-22-2023 Ambulatory Visit [...] PM EDT With: Amarilis TORRES MD Where: [facility] Medicine [place] Normal [facility] Medicine Office/Clini c Noteon 12-22-2023 Family Medicine [...] continues to decrease. She goes to the [facility] and receives Meals on [...] Ordered: Comprehe (more content not included)... Normal [facility] Comment on above: Result Comment: Elec tronically [...] oral rehydration solution (ORS). This is an kqvy-dxl-rfsxass medicine that helps return your body to [...] sports drinks, and soda. ? Eat bland, jjfz-sm-ofbeik foods in small amounts as you are able. These foods include bananas, applesauce, rice, lean meats, toast, and crackers. ? Avoid alcohol. ? Avoid spicy or fatty foods. Medicines ? Take ihkg-mws-wmgxbfk and prescription medicines only as told by your health care provider. ? If you were prescribed an antibiotic medicine, take it as told by your health care provider. Do not stop using the antibiotic even if you start to feel better. General instructions ? Wash your hands often using soap and water. If soap and water are not available, use a hand wire tinner. Others in the household should wash their [...] and water are not available, use hand wire tinner. ? Contact a health care provider if your diarrhea gets worse or you have new symptoms. ? Get help right away if you have signs of dehydration. This information is not intended to replace advice given to you by your health care provider. Make sure you discuss any questions you have with your health care provider. Document Revised: 01/03/2023 Document Reviewed: 04/24/2022 [employer] Patient Education ? 2022 Book A Boat. [facility] PT - Home Exercise Programon 12-08-2023 PT - Home Exercise Program [id number]#1.00TIFF [facility] Consent for Treatmenton Consent for Treatment [id number]#1.00TIFF [facility] PT - Assessmentson PT - Assessments [id number]#1.00TIFF [facility] PT - Assessments [id number]#1.00TIFF [facility] PT - Consentson 12-01-2023 PT - Consents [id number]#1.00TIFF [facility] PT - Home Exercise Programon 12-01-2023 PT - Home Exercise Program [id number]#1.00TIFF [facility] C Urineon 11-18-2023 Bacteria identified Cx Nom (U) Microbiology PROCEDURE: Urine Culture [R1] SOURCE: U CleanCatch BODY SITE: COLLECTED DATE/TIME: 11/15/2023 15:55 EST RECEIVED DATE/TIME: 11/16/2023 07:59 EST START DATE/TIME: 11/16/2023 07:59 EST FREE TEXT SOURCE: Matilde Sthal PA-C, PA-C, Matilde Page FINAL REPORTS Final [...] Locations R1: This test was performed at: [facility], [address] [place] [address], [address] , [place], Normal [facility] Comment on above: Performed By: #### 2 217724, 30542619 ####[address] [address] Giardia, Direct, EIAon 11-18 G. lamblia Ag [place] Ql (Stl) Negative Invalid Interpretation Code Negative [facility] Comment on above: Result Comment: Perf ormed at: [address] [id number] PhD Donna Xie Performed By: #### 1 3893255, 23258839, 90586598, 1376442793, 374494878, [id number] ####[address] [address] O & P EXAM, ROUTINE, REFLEXo n 11-18-2023 Ova and parasites identified Concentration Nom (Stl) Comment Invalid Interpretation Code [facility] Comment on above: Result Comment: No o va, cysts, or parasites seen. One negative specimen does not rule out the possibility of a parasitic infection. Performed at: [address] [id number] PhD Donna Xie Performed By: #### 1 4675729, 47315611, 56211364, 4590960056, 978976383, 7043453869 ####[address] [place] [address] O & P Exam, Routineon 2023 Ova and parasites identified LM Nom (Unsp spec) Final report Invalid Interpretation Code [facility] Comment on above: Result Comment: Thes e results were obtained using wet preparation(s) and trichrome stained smear. This test does not include testing for Cryptosporidium parvum, Cyclospora, or Microsporidia. Performed at: [address] [address] [place], [place] [id number] PhD Donna Xie Performed By: #### 1 3676070, 38611595, 02953863, 2124697164, 801506780, [id number] ####[facility] [address] [place] [address] BMPon 11-15-2023 Anion gap [Moles/Vol] 12 mmol/L Normal 6-16 [facility] Comment on above: Performed By: #### 2 061845, 04467889, 7661331 ####[facility] [address] [place] [address] BUN/Creat Ratio 13 No Units Normal 10-20 [facility] Comment on above: Performed By: #### 2 266867, 84519769, 6378728 ####[facility] [address] [place] [address] Calcium [Mass/Vol] 9.2 mg/dL Normal 8.9-11.1 [facility] Comment on above: Performed By: #### 2 375975, 45379978, 4085800 ####[facility] [address] [place] [address] Chloride [Moles/Vol] 109 mmol/L Normal 101-111 [facility] Comment on above: Performed By: #### 2 649739, 78063414, 7090526 ####[facility] [address] [place] [address] CO2 [Moles/Vol] 20 mmol/L Low 21-31 [facility] Comment on above: Performed By: #### 2 675881, 38462359, 4013391 ####[facility] [address] [place] [address] Creatinine [Mass/Vol] 1.2 mg/dL Normal 0.5-1.3 [facility] Comment on above: Performed By: #### 2 066265, 24065273, 1165151 ####[address] [place] [address] Glucose [Mass/Vol] 104 mg/dL Normal 55-199 [facility] Comment on above: Performed By: #### 2 371446, 08199034, 6966030 ####[address] [address] Potassium [Moles/Vol] 4.3 mmol/L Normal 3.5-5.3 [facility] Comment on above: Performed By: #### 2 374890, 45475988, 3027624 ####[address] [address] Sodium [Moles/Vol] 137 mmol/L Normal 135-145 [facility] Comment on above: Performed By: #### 2 725684, 44242084, 4905825 ####[address] [address] Urea nitrogen [Mass/Vol] 16 mg/dL Normal 5-21 [facility] Comment on above: Performed By: #### 2 076493, 73107301, 7836339 ####[address] [address] CBC w/ Auto Diffon 4 Basophil Absolute 0.1 E9/L Normal 0.0-0.2 [facility] Comment on above: Performed By: #### 2 793609, 26508745, 1237569 ####[address] [address] Basophils/100 WBC (Bld) 0.5 % Normal 0.0-2.0 [facility] Comment on above: Performed By: #### 2 563366, 31722411, 2942941 ####[address] [address] Eos Absolute 0.1 E9/L Normal 0.0-0.5 [facility] Comment on above: Performed By: #### 2 581974, 19249601, 8555003 ####[facility] [address] [place] [address] Eosinophils/100 WBC (Bld) 0.8 % Normal 0.0-8.0 [facility] Comment on above: Performed By: #### 2 835814, 39536516, 8622838 ####[address] [address] Erythrocyte distribution width (RBC) [Ratio] 15.9 % High 10.9-14.2 [facility] Comment on above: Performed By: #### 2 483678, 44454562, 5095037 ####[address] [address] Hematocrit (Bld) [Volume fraction] 40.0 % Normal 34.0-46.0 [facility] Comment on above: Performed By: #### 2 979182, 61225148, 2856109 ####[address] [address] Hemoglobin (Bld) [Mass/Vol] 13.0 g/dL Normal 12.0-16.0 [facility] Comment on above: Performed By: #### 2 043857, 61627144, 5269085 ####[address] [address] Lymph Absolute 1.2 E9/L Normal 1.0-4.0 [facility] Comment on above: Performed By: #### 2 738428, 39275229, 4169606 ####[address] [address] Lymphocytes/100 WBC (Bld) 11.3 % Low 14.0-50.0 [facility] Comment on above: Performed By: #### 2 795690, 20885605, 0061218 ####[address] [address] MCH (RBC) [Entitic mass] 28.5 pg Normal 27.0-34.0 [facility] Comment on above: Performed By: #### 2 274463, 59340569, 4423581 ####[address] [address] MCHC (RBC) [Mass/Vol] 32.5 g/dL Normal 31.4-36.0 [facility] Comment on above: Performed By: #### 2 065998, 37132360, 1343894 ####[address] [address] MCV (RBC) [Entitic vol] 87.8 fL Normal 80.0-100.0 [facility] Comment on above: Performed By: #### 2 956695, 42104208, 0877247 ####[address] [address] [place] Absolute 0.8 E9/L Normal 0.2-1.0 [facility] Comment on above: Performed By: #### 2 536609, 16620340, 7844926 ####[address] [address] Monocytes/100 WBC (Bld) 7.1 % Normal 4.0-14.0 [facility] Comment on above: Performed By: #### 2 382617, 66195774, 1711293 ####[address] [address] Neutro Absolute 8.8 E9/L High 2.0-7.5 [facility] Comment on above: Performed By: #### 2 188751, 60636182, 6453652 ####[address] [address] Neutro Auto 80.3 % High 36.0-75.0 [facility] Comment on above: Performed By: #### 2 712277, 66290672, 7897813 ####[address] [address] Platelet 405.0 E9/L Normal 150.0-500. 0 [facility] Comment on above: Performed By: #### 2 982017, 20571994, 3707479 ####[facility] [address] [place] [address] Platelet mean volume (Bld) [Entitic vol] 7.0 fL Normal 6.4-10.8 [facility] Comment on above: Performed By: #### 2 533012, 85602465, 5180569 ####[facility] [address] [place] [address] RBC 4.6 E12/L Normal 4.3-5.9 [facility] Comment on above: Performed By: #### 2 490531, 27907130, 1051865 ####[address] [place] [address] WBC 10.9 E9/L Normal 4.0-11.0 [facility] Comment on above: Performed By: #### 2 894965, 20600974, 9220511 ####[address] [address] Consent for Treatmenton 10-28 Consent for Treatment [id number]#1.00TIFF Normal [facility] Discharge Instructionson Discharge Instructions [id number]#1.00TIFF Normal [facility] ED Clinical Summaryon 2023 ED Clinical Summary (Inserted Image. Nata ble to display) [address] [address] ED Clinical Summary Person Information Name: ALICIA BARRIENTOS [facility] Age: 78 Years : 1945 Sex: Female Language: German PCP: Amarilis TORRES MD Marital Status: Visit [...] 11/15/2023 16:44:54 11/15/2023 16:44:54 ADDRESS: [address] [facility] [id number] PHYS DOC NOTES: MEDICAL INFORMATION: Prescriptions Given: New Medications [facility], [address] [id number], [phone] cephalexin (Keflex 500 mg Cap) 1 Capsules [...] Follow up: With: Address: When: Amarilis TORRES [address] [place] [address], [facility] [place] [address] Business (1) In 3 days DIAGNOSIS: UTI (urinary tract infection) Normal [facility] ED Note-Physicianon 11-15-19 24 ED Note-Physician Basic [...] day(s), # 28 cap(s), Refills(s) 0, Pharmacy: [facility]/pharmacy #[id number], 142, cm, 11/15/23 15:19:00 EST, [...] Information Amarilis TORRES In 3 days [address] [id number] [facility] (1) Additional Instructions: Patient Education Urinary Tract Infection, Adult Attestation Patient was treated and evaluated by the Physician Route Agent. The attending physician was in the Emergency Department at all times and supervised care. The case was discussed with the attending physician and diagnostics were reviewed as needed. Problem List/Past Medical History Ongoing Aneurysm of internal carotid artery At risk for falls Atherosclerosis of [place] coronary artery Benign hypertension Benign hypertension with [...] aspirin 81 (more content not included)... Normal [facility] Comment on above: Result Comment: Elec tronically [...] this condition includes: ? Antibiotic medicine. ? Jqsk-sph-eazgryp medicines to treat discomfort. ? Drinking enough [...] these instructions at home: Medicines ? Take adnt-usi-jdsfdfu and prescription medicines only as told by [...] Document Revie (more content not included)... Normal [facility] ED Patient Summaryon 024 ED Patient Summary (Inserted Image. Nata ble to display) [place] [id number] Patient Discharge Instructions Person Information Name: SARITA BARRIENTOSLEY Chon Age: 78 Years Arrival Date: 11/15/2023 15:00:03 Discharge Diagnosis: UTI (urinary tract infection) Primary Care Physician: Amarilis TORRES MD Provider Information Primary Provider: Benjamín Ibanez DO Advanced Bull Driver:Matilde Stahl PA-C The exam and treatment you received in the Emergency Department were for an urgent problem and are not intended as complete care. It is important that you follow up with a doctor, nurse practitioner, or physician?s assistant film editor for ongoing care. If your symptoms become worse or you do not improve as expected and you are unable to reach your usual health care provider, you should return to the Emergency Department. We are available 24 hours a day. ALICIA BARRIENTOS has been given the following list of patient education materials, prescriptions and follow-up instructions: Follow-up Instructions: With: Address: When: Amarilis TORRES [address] [place] [address], [facility] [place] [phone] Business (1) In 3 days In the event that this physician does not participate in your insurance network, please consult with your insurance company to find a nearby participating provider. Patient Education Materials: Urinary Tract Infection, Adult A MESSAGE TO ALL PATIENTS REGARDING OPIOIDS PRESCRIPTION OPIOIDS: WHAT YOU NEED TO KNOW Prescription opioids can be used to help relieve bxjyimdv-kf-ikrbfs pain and are often prescribed following a [...] be struggling with addiction, tell your health critical care cns and ask for guidance or call [facility] (more content not included)... Normal [facility] UA With Cult Reflexon 2023 Bacteria LM Ql (Urine sed) 1+ /HPF Abnormal Trace [facility] Comment on above: Performed By: #### 2 987361, [id number] ####[facility] [address] [place] [address] Bilirubin Ql (U) 1+ Abnormal Negative [facility] Comment on above: Performed By: #### 2 470905, 14847046 ####[facility] [address] [place] [address] Clarity (U) SL CLOUDY Abnormal Clear [facility] Comment on above: Performed By: #### 2 887814, 19909647 ####[facility] [address] [place] [address] Color (U) YELLOW Normal Yellow [facility] Comment on above: Performed By: #### 2 710459, [id number] ####[facility] [address] [place] [address] Epithelial cells.squamous LM.HPF (Urine sed) [#/Area] 0-2 Normal 0-2 [facility] Comment on above: Performed By: #### 2 334127, [id number] ####[facility] [address] [place] [address] Glucose Test strip (U) [Mass/Vol] Negative Normal Negative [facility] Comment on above: Performed By: #### 2 386934, 38292878 ####[facility] [address] [place] [address] Hemoglobin Ql (U) 1+ Abnormal Negative [facility] Comment on above: Performed By: #### 2 610640, 76142246 ####[facility] [address] [place] [address] Ketones (U) [Mass/Vol] Negative Normal Negative [facility] Comment on above: Performed By: #### 2 596163, 46575898 ####[facility] [address] [place] [address] Omak.plasma/Omak .RBC (Bld) [Mass ratio] 4-20 Normal 0-3 [facility] Comment on above: Performed By: #### 2 526472, 95330470 ####[facility] [address] [place] [address] Mucus Ql (Urine sed) TRACE Normal Fish [facility] Comment on above: Performed By: #### 2 300028, 30629806 ####[facility] [address] [place] [address] Nitrite Ql (U) Positive Abnormal Negative [facility] Comment on above: Performed By: #### 2 227631, 28214582 ####[facility] [address] [place] [address] pH (U) 6.0 [pH] Invalid Interpretation Code 5.0-9.0 [facility] Comment on above: Performed By: #### 2 806154, 55282785 ####[facility] [address] [place] [address] Protein (U) [Mass/Vol] Negative Normal Negative [facility] Comment on above: Performed By: #### 2 915986, 59038943 ####[facility] [address] [place] [address] Specific gravity (U) [Rel density] 1.015 Invalid Interpretation Code 1.005-1.03 0 [facility] Comment on above: Performed By: #### 2 436718, 29064000 ####[facility] [address] [place] [address] Type of Urine collection method Clean Catch Normal [facility] Comment on above: Performed By: #### 2 852419, 59164781 ####[facility] [address] [place] [address] Urobilinogen Qn (U) 0.2 {Chan'U}/dL Normal 0.0-1.0 [facility] Comment on above: Performed By: #### 2 995168, 99165484 ####[facility] [address] [place] [address] WBC Auto Ql (U) 2+ Abnormal Negative [facility] Comment on above: Performed By: #### 2 886357, 87185787 ####[facility] [address] [place] [address] WBC LM.HPF (Urine sed) [#/Area] 26-30 Abnormal 0-5 [facility] Comment on above: Performed By: #### 2 774288, 06517727 ####[facility] [address] [place] [address] eGFRon 11-15-2023 eGFR 46 mL/min/1.73 m2 Low >=59 [facility] Comment on above: Order Comment: Order added by Discern Expert. Performed By: #### 2 220216, 54935347, 3767112 ####[facility] [address] [place] [address] C Urineon 11-14-2023 Bacteria identified Cx Nom (U) Microbiology PROCEDURE: Urine Culture [R1] SOURCE: U Random BODY SITE: COLLECTED DATE/TIME: 11/11/2023 19:03 EST RECEIVED DATE/TIME: 11/12/2023 17:45 EST START DATE/TIME: 11/12/2023 17:45 EST FREE TEXT SOURCE: BRIAN TAMEZ, Amarilis TORRES MD, Amarilis FINAL REPORTS Final Report [] Verified Date/Time: 11/14/2023 10:08 EST 1,000 cfu/ml Mixed skin contaminants Performing Locations R1: This test was performed at: [facility], [address] [place] [address], [address]- , , [facility] Comment on above: Performed By: #### 2 124310 ####[facility] [address] [place] [address] Enteric Panel by PCRon 11-13 C. coli+jejuni+upsaliensi s DNA ELSI+non-probe Ql (Stl) Not detected [facility] Comment on above: Result Comment: Test ing was performed utilizing reverse powder hand (RT), polymerase chain reaction (PCR), and array [...] nulcleic acid test. Performed By: #### 1 8595392, 35823360, 82155635, 9768827124, 100683167, 0136917169 ####[facility] [address] [place] [address] E. coli stx1+stx2 genes ELSI+non-probe Ql (Stl) Negative Normal [facility] Comment on above: Performed By: #### 1 1585958, 36253343, 36484761, 2054353035, 516305790, 4540339131 ####[facility] [address] [place] 8[address]2657 Enteric Panel by PCR Negative Normal Fish er [facility] Enteric Panel Intrl QC Pass Normal Fi [facility] Comment on above: Result Comment: Test ing was performed utilizing reverse powder hand (RT), polymerase chain reaction (PCR), and array [...] 1 and 2. Performed By: #### 1 6852063, 79735900, 91412058, 1290533201, 428186858, 7267594238 ####[facility] [address] [place] [address] Norovirus genogroup I+II RNA ELSI+non-probe Ql (Stl) Not detected Normal [facility] Comment on above: Performed By: #### 1 2392016, 89092759, 60447252, 6647387096, 307017677, 3069031994 ####[facility] [address] [place] [address] Rotavirus A RNA ELSI+non-probe Ql (Stl) Not detected Normal [facility] Comment on above: Performed By: #### 1 4034875, 75006673, 67522695, 5375001854, 077386056, 2276313719 ####[facility] [address] [place] [address] S. enterica+bongori DNA ELSI+non-probe Ql (Stl) Not detected Normal [facility] Comment on above: Result Comment: This test result should be correlated with clinical presentations and medical history by a healthcare provider to determine its clinical significance. Performed By: #### 1 3123077, 13679049, 21954194, 2467487051, 188489482, 2375277893 ####[place] 0889057 Shigella species+EIEC invasion plasmid antigen H ipaH gene ELSI+non-probe Ql (Stl) Not detected Normal [facility] Comment on above: Performed By: #### 1 9891202, 85465115, 92504104, 1578462314, 071526610, 0797875374 ####[facility] [address] [place] [address] V. cholerae+parahaemolyti cus+vulnificus DNA ELSI+non-probe Ql (Stl) Not detected Normal [facility] Comment on above: Performed By: #### 1 1610304, 43306035, 01632086, 1823292297, 266221556, 4274896020 ####[facility] [address] [place] [address] Y. enterocolitica DNA ELSI+non-probe Ql (Stl) Not detected Normal [facility] Comment on above: Performed By: #### 1 3790339, 39819849, 61479626, 0126564921, 276054027, 7749645192 ####[facility] [address] [place] [address] C. diff by PCRon 11-12-2023 C. diff by PCR Specimen Negative fo r toxigenic C. difficile by DNA amplification. Duplicate specimens will not be accepted on this patient for the next 7 days. Published data on the sensitivity of molecular assays suggest there is no diagnostic value in repeat testing of samples in close time sequence. Normal Negative [facility] Comment on above: Result Comment: This test result should be correlated with clinical presentations and medical history by a healthcare provider to determine its clinical significance.\.br\.br\ Other Comment: Order added by Discern Expert. Clostridium difficile by PCR Negative Normal Negative [facility] Comment on above: Order Comment: Order added by Discern Expert. Result Comment: This test result should be correlated with clinical presentations and medical history by a healthcare provider to determine its clinical significance. Performed By: #### 1 0141842, 47675604, 70207150, 8593827242, 083328301, 1082382397 ####[facility] [address] [place] [address] CDiff PCRon 11-12-2023 CDiff PCR Specimen has been fo und to be acceptable for C. difficile testing. Normal [facility] Cdiff Specimen Acceptable Acceptable Normal [facility] Comment on above: Performed By: #### 1 0458990, 39190729, 56527537, 4256072110, 391239353, 2042310082 ####[facility] [address] [place] [address] Order Cancelled No, PCR to follow Normal Fi [facility] Comment on above: Performed By: #### 1 8783537, 18916491, 27174874, 0477340227, 084858991, 7412826723 ####[facility] [address] [place] [address] Ambulatory Visit Summaryon 0 11-11-2023 Ambulatory Visit Summary ALICIA BARRIENTOS :1945 Visit Date:11/11/2023 Ambulatory Visit Instructions Your Diagnosis Recurrent falls while walking, Falls frequently Chronic diarrhea Rib pain on left side Chronic kidney disease, stage 3a Benign hypertension Benign hypertension with chronic kidney disease, stage III History 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 She also fell at [facility] too. She did not have any warning signs. She is not walking as well as she was before. She does not use her walker with regularity if family is around because they usually hold her hand.. She was using a walker at [facility], but the day after the fall, her boys took her to the store and bought a cane so she can use it in the house. She used to walk every day outdoors but now she hardly walks at all due to the cold weather and going to the [facility] every day.. She has [...] sinus issues. She eats food at the [facility] on [address]. The diarrhea does wake her up from sleep sometimes Very acutely denies any rectal bleeding. Has had a partial bowel resection at [facility] for diverticulitis. Believes it was at least [...] pale. She is not demonstrating any tremors. 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 Range of motion in [...] Risk Screen 2 or more w/injury 1100F [facility] Outpatient Physical Therapy Evaluate Patient, Develop a Plan of Care, & Implement Plan Influenza immunization administered or previously received 4274F Most recent diastolic blood pressure <80 mm Hg 3078F Most recent LDL-C < 100 mg/Dl 3048F Pneumonia Vax administered or previously received 4040F Systolic BP <130 mm Hg (Most R (more content not included)... Normal [facility] Comment on above: Result Comment: Elec tronically [...] these instructions at home: Medicines ? Take yqzj-bah-gtyoejp and prescription medicines only as told by [...] ask your (more content not included)... Normal [facility] Auto Diffon 10-10-2023 Basophils/100 WBC (Bld) 0.4 % Normal 0.0-2.0 [facility] Comment on above: Order Comment: Order Added by Discern Expert. Performed By: #### 1 9072613, 4181664, 9277672, 3969828, 8028573 ####[facility] [address] [place] [address] Basophils/Leukocytes Auto (Bld) [Pure # fraction] 0.1 E9/L Normal 0.0-0.2 [facility] Comment on above: Order Comment: Order Added by Discern Expert. Performed By: #### 1 0542967, 7893257, 0376323, 7393558, 5288864 ####[place] [address] [place] [address] Eosinophils/100 WBC (Bld) 1.3 % Normal 0.0-8.0 [facility] Comment on above: Order Comment: Order Added by Discern Expert. Performed By: #### 1 4422900, 6620187, 6307489, 2173888, 0824490 ####[address] [address] Eosinophils/Leukocytes Auto (Bld) [Pure # fraction] 0.2 E9/L Normal 0.0-0.5 [facility] Comment on above: Order Comment: Order Added by Discern Expert. Performed By: #### 1 5172337, 7212772, 2874162, 8353449, 2977754 ####[address] [address] Lymphocytes/100 WBC (Bld) 9.0 % Low 14.0-50.0 [facility] Comment on above: Order Comment: Order Added by Discern Expert. Performed By: #### 1 3355241, 7406435, 7247056, 9517777, 9741404 ####[place] [address] [place] [address] Lymphocytes/Leukocytes Auto (Bld) [Pure # fraction] 1.3 E9/L Normal 1.0-4.0 [facility] Comment on above: Order Comment: Order Added by Discern Expert. Performed By: #### 1 0932667, 4571097, 0669798, 0382167, 8058606 ####[address] [address] Monocytes/100 WBC (Bld) 9.5 % Normal 4.0-14.0 [facility] Comment on above: Order Comment: Order Added by Discern Expert. Performed By: #### 1 5006021, 5713825, 6198956, 0184124, 7489116 ####[place] [address] [place] [address] Monocytes/Leukocytes Auto (Bld) [Pure # fraction] 1.3 E9/L High 0.2-1.0 [facility] Comment on above: Order Comment: Order Added by Discern Expert. Performed By: #### 1 5331916, 5744386, 5071475, 3696460, 2047570 ####[address] [address] Neutrophils/100 WBC (Bld) 79.8 % High 36.0-75.0 [facility] Comment on above: Order Comment: Order Added by Discern Expert. Performed By: #### 1 6024257, 1905026, 4553590, 8615705, 6837335 ####[address] [address] Neutrophils/Leukocytes Auto (Bld) [Pure # fraction] 11.3 E9/L High 2.0-7.5 [facility] Comment on above: Order Comment: Order Added by Discern Expert. Performed By: #### 1 4796691, 9946891, 0200547, 3877567, 2829376 ####[address] [address] CBC w/ Auto Diffon 3 Erythrocyte distribution width (RBC) [Ratio] 13.6 % Normal 10.9-14.2 [facility] Comment on above: Performed By: #### 1 7759250, 5855403, 3277197, 9928483, 1690449 ####[address] [address] Hematocrit (Bld) [Volume fraction] 39.9 % Normal 34.0-46.0 [facility] Comment on above: Performed By: #### 1 8564175, 8062085, 9237400, 5499362, 2369957 ####[facility] [address] [place] [address] Hemoglobin (Bld) [Mass/Vol] 13.1 g/dL Normal 12.0-16.0 [facility] Comment on above: Performed By: #### 1 7729516, 3272138, 6388361, 0850520, 3810511 ####[address] [address] MCH (RBC) [Entitic mass] 28.4 pg Normal 27.0-34.0 [facility] Comment on above: Performed By: #### 1 0369865, 3515284, 8162523, 1414542, 7669937 ####[address] [address] MCHC (RBC) [Mass/Vol] 32.9 g/dL Normal 31.4-36.0 [facility] Comment on above: Performed By: #### 1 2741383, 6498535, 4093330, 0093015, 5841213 ####[address] [address] MCV (RBC) [Entitic vol] 86.4 fL Normal 80.0-100.0 [facility] Comment on above: Performed By: #### 1 1474954, 4694996, 4146353, 7204782, 7334491 ####[address] [address] Platelet mean volume (Bld) [Entitic vol] 7.4 fL Normal 6.4-10.8 [facility] Comment on above: Performed By: #### 1 0015889, 0427761, 5593315, 3567285, 8782580 ####[address] [address] Platelets (Bld) [#/Vol] 473.0 E9/L Normal 150.0-500. 0 [facility] Comment on above: Performed By: #### 1 4901051, 3482898, 2982338, 6849376, 7331785 ####[facility] [place] [address] RBC (Bld) [#/Vol] 4.6 E12/L Normal 4.3-5.9 [facility] Comment on above: Performed By: #### 1 1690673, 8314873, 7065695, 1485106, 1059465 ####[facility] [address] [place] [address] WBC corrected for nucl RBC Auto (Bld) [#/Vol] 14.2 E9/L High 4.0-11.0 [facility] Comment on above: Performed By: #### 1 8617254, 8754040, 5060939, 2757037, 9623652 ####[address] [address] CMPon 10-10-2023 Albumin [Mass/Vol] 3.0 g/dL Low 3.3-5.0 [facility] Comment on above: Performed By: #### 1 5731010, 0793264, 2443997, 0189760, 8449515 ####[place] [address] [place] [address] Albumin/Globulin [Mass ratio] 0.9 {ratio} Low 1.1-2.2 [facility] Comment on above: Performed By: #### 1 1716149, 2330017, 7695326, 0110888, 9533439 ####[place] [address] [place] [address] Alk Phos 88 Int._Unit/L Normal 21-98 [facility] Comment on above: Performed By: #### 1 4848353, 8822404, 2708184, 4433128, 3511667 ####[place] [address] [place] [address] ALT 20 Int._Unit/L Normal 6-46 [facility] Comment on above: Performed By: #### 1 9967743, 4472750, 3674165, 1279268, 9159878 ####[facility] [address] [place] [address] Anion gap [Moles/Vol] 12 mmol/L Normal 6-16 [facility] Comment on above: Performed By: #### 1 8709858, 0177414, 0562632, 9889117, 4541446 ####[facility] [address] [place] [address] AST 29 Int._Unit/L Normal 5-43 [facility] Comment on above: Performed By: #### 1 1391660, 6246914, 6895181, 2711350, 5137283 ####[facility] [address] [place] [address] Bili Total 0.5 mg/dL Normal 0.0-1.1 [facility] Comment on above: Performed By: #### 1 1510313, 8198251, 4948660, 7834127, 2409049 ####[facility] [address] [place] [address] BUN/Creat Ratio 14 No Units Normal 10-20 [facility] Comment on above: Performed By: #### 1 7171586, 3857533, 7459281, 8223944, 9267782 ####[facility] [address] [place] [address] Calcium [Mass/Vol] 9.8 mg/dL Normal 8.9-11.1 [facility] Comment on above: Performed By: #### 1 2191636, 0320678, 0338222, 3392475, 5807045 ####[facility] [address] [place] [address] Chloride [Moles/Vol] 108 mmol/L Normal 101-111 [facility] Comment on above: Performed By: #### 1 4376056, 2761663, 8063496, 3597497, 9694257 ####[facility] [address] [place] [address] CO2 [Moles/Vol] 22 mmol/L Normal 21-31 [facility] Comment on above: Performed By: #### 1 0886887, 5193057, 6820848, 4006360, 9098010 ####[facility] [address] [place] [address] Creatinine [Mass/Vol] 1.0 mg/dL Normal 0.5-1.3 [facility] Comment on above: Performed By: #### 1 2850168, 6244491, 2551856, 2586983, 5479081 ####[facility] [address] [place] [address] Globulin (S) [Mass/Vol] 3.5 g/dL Normal 1.4-4.0 [facility] Comment on above: Performed By: #### 1 8296352, 9343052, 7061852, 2819637, 5624347 ####[facility] [address] [place] [address] Glucose [Mass/Vol] 103 mg/dL Normal 55-199 [facility] Comment on above: Performed By: #### 1 6299777, 6364878, 9743529, 8314233, 4683449 ####[facility] [address] [place] [address] Potassium [Moles/Vol] 4.7 mmol/L Normal 3.5-5.3 [facility] Comment on above: Performed By: #### 1 6298158, 1891900, 4393568, 8952197, 4948931 ####[facility] [address] [place] [address] Protein [Mass/Vol] 6.5 g/dL Normal 6.0-7.8 [facility] Comment on above: Performed By: #### 1 0892145, 1013848, 6880952, 5514149, 9192974 ####[facility] [address] [place] [address] Sodium [Moles/Vol] 137 mmol/L Normal 135-145 [facility] Comment on above: Performed By: #### 1 3263471, 3041887, 6226521, 6127313, 6189634 ####[facility] [address] [place] [address] Urea nitrogen [Mass/Vol] 14 mg/dL Normal 5-21 [facility] Comment on above: Performed By: #### 1 7622455, 3007769, 3220618, 3775339, 3433185 ####[facility] [address] [place] [address] Consent for Treatmenton 09-26 Consent for Treatment [id number] Normal [facility] Lipid Panelon 10-10-2023 Cholesterol [Mass/Vol] 108 mg/dL Low 120-200 [facility] Comment on above: Performed By: #### 1 6969654, 7543669, 8606013, 1486729, 1280796 ####[facility] [address] [place] [address] Cholesterol in HDL [Mass/Vol] 43 mg/dL Invalid Interpretation Code [facility] Comment on above: Result Comment: '>= 60 LOW RISK' '<= 40 HIGH RISK' Performed By: #### 1 9006670, 6161349, 2493517, 0857837, 6601906 ####[facility] [address] [place] [address] Cholesterol in LDL [Mass/Vol] 56 mg/dL Normal <=129 [facility] Comment on above: Performed By: #### 1 [id number], [id number], [id number], [id number], [id number] ####[facility] [address] [place] [address] Cholesterol in VLDL [Mass/Vol] 13 mg/dL Normal 7-40 [facility] Comment on above: Performed By: #### 1 [id number], [id number], [id number], [id number], [id number] ####[facility] [address] [place] [address] Triglyceride [Mass/Vol] 66 mg/dL Normal <=149 [facility] Comment on above: Performed By: #### 1 [id number], 9303876, [id number], [id number], [id number] ####[facility] [address] [place] [address] Reminderson 10-10-2023 Reminders - From: Amarilis TORRES MD To: [facility] - Clinical; Sent: 10/10/2023 14:13:29 EST [...] 9.0 % (14.0 - 50.0) 10/10/2023 8:59 Kershaw Auto 9.5 % (4.0 - 14.0) 10/10/2023 8:59 Eos Auto 1.3 % (0.0 - 8.0) 10/10/2023 8:59 Basophil Auto 0.4 % (0.0 - 2.0) 10/10/2023 8:59 Neutro Absolute ((H)) 11.3 E9/L (2.0 - 7.5) 10/10/2023 8:59 Lymph Absolute 1.3 E9/L (1.0 - 4.0) 10/10/2023 8:59 Kershaw Absolute ((H)) 1.3 E9/L (0.2 - 1.0) [...] - 40) Pt Notified, voiced understanding Normal [facility] eGFRon 10-10-2023 eGFR 57 mL/min/1.73 m2 Low >=59 [facility] Comment on above: Order Comment: Order added by Discern Expert. Performed By: #### 1 [id number], [id number], 3405347, [id number], [id number] ####[facility] [address] [place] [address] Consent for Immunizationon 0 05-14-2023 Consent for Immunization [id number]:127 Normal [facility] Ambulatory Visit Summaryon 0 05-13-2023 Ambulatory Visit Summary LORENZOFAUSTO ALICIA Givens :1945 Visit Date:05/13/2023 Ambulatory Visit Instructions Your Diagnosis Chronic kidney disease, stage 3a Benign hypertension with chronic kidney disease, stage III Benign hypertension Atherosclerosis of [place] coronary artery Aneurysm of internal carotid artery [...] Appointments Friday 3:30 PM EDT With: Where: [facility] Medicine Katharina Invalid Interpretation Code [address] [place] [address]- \. br\ You Need to Schedule the Following Appointmen ts\.br\ Follow Up with BRIAN TAMEZ, CHRISTOPHER Guerra When: Within 6 months\.br \ Comments:\ .br\ get labs at [facility] in advance perhaps in September, see me in October\.b r\ Where:\.br \ [address] [facility]\. br\ [place] [address]-\.br \ \. br\ You Need to Complete the Following\ .br\ CBC w/ Auto Diff, Blood, Routine collect, *Est. 05/13/23 due within 6 months, Order for future visit, Lab Collect, Chronic renal impairment , stage 3 (moderate) [facility] Family Medicine Office/Clini c Noteon 05-13-2023 Family [...] supportive and she does go to [facility] 4 to 5 days/week. She loves [...] Metabolic Panel Lipid Panel 4. Atherosclerosis of [place] coronary artery (I25.10: Atherosclerotic heart disease of [place] coronary artery without angina pectoris) History of [...] BMI toda (more content not included)... Normal [facility] Comment on above: Result Comment: Elec tronically [...] these instructions at home: Medicines ? Take mjli-sag-ravqleg and prescription medicines only as told by [...] visits. Where to find more information ? [place] [employer] Kidney Patients: www.aakp.org ? National Kidney Foundation: www.kidney.org ? [place] [employer]: www.akfinc.org ? Life Options: www.lifeoptions.org [...] Document Revie (more content not included)... Normal [facility] CHEMISTRYOrdered By: SYSTEM SYSTEM on 11-30-2022 Albumin [...] 53 mL/min/1.73 m2 Low >=59mL/min /1.73 m2 [facility] Chem S GFR/1.73 sq M.predicted among non-blacks MDRD (S/P/Bld) [Vol rate/Area] 43 mL/min/1.73 m2 Low >=59mL/min /1.73 m2 [facility] Chem S Globulin (S) [Mass/Vol] 3.1 g/dL [...] 38 mL/min/1.73 m2 Low >=59mL/min /1.73 m2 [facility] Chem S GFR/1.73 sq M.predicted among non-blacks MDRD (S/P/Bld) [Vol rate/Area] 31 mL/min/1.73 m2 Low >=59mL/min /1.73 m2 [facility] Chem S Globulin (S) [Mass/Vol] 3.0 g/dL [...] Pcp, MDDischarge:Summary:Admissi on Date: .06-Jan-2018 09:34:00Discharge Date: 04-Amv-7345Pnlwvjiwl Physician at Discharge: Alonso Mahandmission Reason: CVAFinal Discharge Diagnoses: StrokeProcedures: NoneCondition at Discharge: SatisfactoryDisposition at Discharge: Retirement FacilityVital Signs:See chartPhysical Exam:See ChartHospital Course:patient is [...] Signs: Recommend BID but Defer to Facility MD/ADMINISTRATIVE DIRECTOR Additional Instructions: Please follow up with cerebrovascularneurology (such as Jose Maria Kaiser, Jarrell) for post stroke follow upin 4-6 weeks[facility]Department of [address] [place], [place] [address]Gjvola: or or - Call to schedulePlease follow up with neuro surgery for aneurysm recommendations--Referral has been made to sodder service awaiting outpatient referralRehab Services: Occupational Therapy Orders: [facility] and Treat [facility] Physical Therapy Orders: Eval and Treat ([facility])Infectious Disease: PPD Status: [...] Findingsagree with Ike Mahan MDElectronic Signatures:Suraj Jensen (SWIMMING POOL SERVICE TECHNICIAN-CAREER PROFESSIONAL) (Signed 21-Feb-2018 08:10) Authored: Send Summary, Summary Content, Ongoing Care,Signature/Cosignature/ AttestationTaylor Mahan) (Signed 26-Feb-2018 06:54) Authored: Ongoing Care, Signature/Cosignature/Attes tation Co-Signer: Send Summary, Summary Content, Ongoing Care,Signature/Cosignature/ AttestationLast Updated: 26-Feb-2018 06:54 by Taylor Mahan) Normal [facility] Basic Metabolic Panelon 12-26 Anion gap 14 mmol/L Normal 10-[address] [facility] Healthcare Comment on above: Performed By: #### 1 [id number] ####[place] [address] [address] Bicarbonate (HCO3) 24 mmol/L Normal 21-[address] [facility] Healthcare Comment on above: Performed By: #### 1 601851 ####[place] [address] [address] BUN/Creatinine Ratio 14 mg/mg Normal 5-[address] [facility] Healthcare Comment on above: Performed By: #### 1 187325 ####[address] [address] Calcium 9.7 mg/dL Normal 8.6-10.3 [facility] Comment on above: Performed By: #### 1 116201 ####[address] [address] Chloride 107 mmol/L Normal 98-107 [facility] Comment on above: Performed By: #### 1 290334 ####[address] [address] Creatinine 0.90 mg/dL Normal 0.50-1.05 [facility] Comment on above: Performed By: #### 1 657984 ####[address] [address] eGFR (MDRD) mL/min/{1.73_m2} Normal [facility] Comment on above: Result Comment: Inte rpretation for Chronic Kidney Disease:Stages 1&2 >60 Healthy or potential kidney damage.Mild decrease of GFR.Stage 3 30-59 Moderate decrease of GFR.Stage 4 15-29 Severe decrease of GFR.Stage 5 <15 Kidney failure or on dialysis. Performed By: #### 1 601181 ####[address] [address] Glucose mass conc 90 mg/dL Normal 70-[address] [facility] Healthcare Comment on above: Performed By: #### 1 870489 ####[address] [address] Potassium molar conc 3.9 mmol/L Normal 3.5-5.[address] [facility] Healthcare Comment on above: Performed By: #### 1 054374 ####[address] [address] Sodium 141 mmol/L Normal 136-[address] [facility] Healthcare Comment on above: Performed By: #### 1 311506 ####[address] [address] Urea nitrogen 13 mg/dL Normal 6-[address] [facility] Healthcare Comment on above: Performed By: #### 1 571241 ####[address] [address] CBCon 01-21-2018 Erythrocyte distribution width Auto Ratio (RBC) 14.1 % Normal 12.0-15.[address] [facility] Healthcare Comment on above: Performed By: #### 2 747176 ####[address] [address] Erythrocytes (RBC) 5.10 10*6/uL Normal 3.85-5.[address] [facility] Healthcare Comment on above: Performed By: #### 2 284460 ####[address] [address] Hematocrit (HCT) 46.9 % High 36.5-46.[address] [facility] Healthcare Comment on above: Performed By: #### 2 752981 ####[address] [address] Hemoglobin mass conc (Bld) 15.3 g/dL Normal 11.8-15.3 [facility] Comment on above: Performed By: #### 2 574625 ####[address] [address] MCH 30.0 pg Normal 27.5-33.[address] [facility] Healthcare Comment on above: Performed By: #### 2 295237 ####[address] [address] MCHC mass conc (RBC) 32.6 g/dL Normal 30.1-35.[address] [facility] Healthcare Comment on above: Performed By: #### 2 700775 ####[address] [address] MCV 92.0 fL Normal 85.4-100.[address] [facility] Healthcare Comment on above: Performed By: #### 2 482372 ####[place] [address] [address] Platelet mean volume (PMV) 10.6 fL Normal 9.9-12.[address] [facility] Healthcare Comment on above: Performed By: #### 2 555450 ####[place] [address] [address] Platelets 257 10*3/uL Normal 155-[address] [facility] Healthcare Comment on above: Performed By: #### 2 497049 ####[place] [address] [address] RDW SD 46.2 fL Normal 39.3-48.[address] [facility] Healthcare Comment on above: Performed By: #### 2 601441 ####[address] [address] WBC (Leukocytes) 7.4 10*3/uL Normal 4.4-9.[address] [facility] Healthcare Comment on above: Performed By: #### 2 336001 ####[place] [address] Basic Metabolic Panelon 12-26 Anion gap 14 mmol/L Normal 10-20 [facility] Comment on above: Performed By: #### 1 169850 ####[address] [address] Bicarbonate (HCO3) 24 mmol/L Normal 21-[address] [facility] Healthcare Comment on above: Performed By: #### 1 905293 ####[address] [address] BUN/Creatinine Ratio 19 mg/mg Normal 5-[address] [facility] Healthcare Comment on above: Performed By: #### 1 071785 ####[address] [address] Calcium 9.8 mg/dL Normal 8.6-10.[address] [facility] Healthcare Comment on above: Performed By: #### 1 092751 ####[address] [address] Chloride 105 mmol/L Normal 98-[address] [facility] Healthcare Comment on above: Performed By: #### 1 521766 ####[address] [address] Creatinine 0.80 mg/dL Normal 0.50-1.05 [facility] Comment on above: Performed By: #### 1 423384 ####[address] [address] eGFR (MDRD) mL/min/{1.73_m2} Normal [facility] Comment on above: Result Comment: Inte rpretation for Chronic Kidney Disease:Stages 1&2 >60 Healthy or potential kidney damage.Mild decrease of GFR.Stage 3 30-59 Moderate decrease of GFR.Stage 4 15-29 Severe decrease of GFR.Stage 5 <15 Kidney failure or on dialysis. Performed By: #### 1 404146 ####[address] [address] Glucose mass conc 87 mg/dL Normal 70-100 [facility] Comment on above: Performed By: #### 1 362903 ####[address] [address] Potassium molar conc 3.6 mmol/L Normal 3.5-5.1 [facility] Comment on above: Performed By: #### 1 144599 ####[address] [address] Sodium 139 mmol/L Normal 136-145 [facility] Comment on above: Performed By: #### 1 845769 ####[address] [address] Urea nitrogen 15 mg/dL Normal 6-23 [facility] Comment on above: Performed By: #### 1 148868 ####[address] [address] CBCon 01-14-2018 Erythrocyte distribution width Auto Ratio (RBC) 14.1 % Normal 12.0-15.4 [facility] Comment on above: Performed By: #### 2 318185 ####[address] [address] Erythrocytes (RBC) 5.33 10*6/uL High 3.85-5.10 [facility] Comment on above: Performed By: #### 2 624597 ####[address] [address] Hematocrit (HCT) 48.9 % High 36.5-46.6 [facility] Comment on above: Performed By: #### 2 567322 ####[place] [address] [address] Hemoglobin mass conc (Bld) 16.0 g/dL High 11.8-15.[address] [facility] Healthcare Comment on above: Performed By: #### 2 585167 ####[address] [address] MCH 30.0 pg Normal 27.5-33.[address] [facility] Healthcare Comment on above: Performed By: #### 2 259743 ####[place] [address] [address] MCHC mass conc (RBC) 32.7 g/dL Normal 30.1-35.[address] [facility] Comment on above: Performed By: #### 2 911580 ####[address] [address] MCV 91.7 fL Normal 85.4-100.0 [facility] Comment on above: Performed By: #### 2 783848 ####[address] [address] Platelet mean volume (PMV) 10.7 fL Normal 9.9-12.1 [facility] Comment on above: Performed By: #### 2 992463 ####[address] [address] Platelets 241 10*3/uL Normal 155-404 [facility] Comment on above: Performed By: #### 2 878000 ####[address] [address] RDW SD 46.5 fL Normal 39.3-48.6 [facility] Comment on above: Performed By: #### 2 555773 ####[address] [address] WBC (Leukocytes) 7.7 10*3/uL Normal 4.4-9.[address] [facility] Healthcare Comment on above: Performed By: #### 2 438280 ####[address] [address] Basic Metabolic Panelon 12-25 Anion gap 14 mmol/L Normal 10-[address] [facility] Healthcare Comment on above: Performed By: #### 1 114023 ####[address] [address] Bicarbonate (HCO3) 24 mmol/L Normal 21-32 [facility] Comment on above: Performed By: #### 702672 ####[address] [address] BUN/Creatinine Ratio 13 mg/mg Normal 5-25 [facility] Comment on above: Performed By: #### 287489 ####[address] [address] Calcium 9.9 mg/dL Normal 8.6-10.3 [facility] Comment on above: Performed By: #### 877635 ####[address] [address] Chloride 106 mmol/L Normal 98-107 [facility] Comment on above: Performed By: #### 801506 ####[address] [address] Creatinine 1.00 mg/dL Normal 0.50-1.05 [facility] Comment on above: Performed By: #### 076261 ####[address] [address] eGFR (MDRD) 54 mL/min/{1.73_m2} Normal [facility] Comment on above: Result Comment: Inte rpretation for Chronic Kidney Disease:Stages 1&2 >60 Healthy or potential kidney damage.Mild decrease of GFR.Stage 3 30-59 Moderate decrease of GFR.Stage 4 15-29 Severe decrease of GFR.Stage 5 <15 Kidney failure or on dialysis. Performed By: #### 512543 ####[address] [address] Glucose mass conc 75 mg/dL Normal 70-100 [facility] Comment on above: Performed By: #### 485076 ####[address] [address] Potassium molar conc 3.5 mmol/L Normal 3.5-5.1 [facility] Comment on above: Performed By: #### 690633 ####[address] [address] Sodium 141 mmol/L Normal 136-145 [facility] Comment on above: Performed By: #### 090432 ####[address] [address] Urea nitrogen 13 mg/dL Normal 6-23 [facility] Comment on above: Performed By: #### 1 570443 ####[address] [address] CBCon 01-10-2018 Erythrocyte distribution width Auto Ratio (RBC) 14.3 % Normal 12.0-15.4 [facility] Comment on above: Performed By: #### 2 550691 ####[address] [address] Erythrocytes (RBC) 5.28 10*6/uL High 3.85-5.10 [facility] Comment on above: Performed By: #### 2 535120 ####[address] [address] Hematocrit (HCT) 49.3 % High 36.5-46.6 [facility] Comment on above: Performed By: #### 2 705062 ####[address] [address] Hemoglobin mass conc (Bld) 16.1 g/dL High 11.8-15.3 [facility] Comment on above: Performed By: #### 2 577325 ####[address] [address] MCH 30.5 pg Normal 27.5-33.0 [facility] Comment on above: Performed By: #### 2 304590 ####[address] [address] MCHC mass conc (RBC) 32.7 g/dL Normal 30.1-35.0 [facility] Comment on above: Performed By: #### 2 908196 ####[address] [address] MCV 93.4 fL Normal 85.4-100.0 [facility] Comment on above: Performed By: #### 2 587231 ####[address] [address] Platelet mean volume (PMV) 10.9 fL Normal 9.9-12.1 [facility] Comment on above: Performed By: #### 2 897689 ####[address] [address] Platelets 236 10*3/uL Normal 155-404 [facility] Comment on above: Performed By: #### 2 262020 ####[facility] [address] [place] [address] RDW SD 47.0 fL Normal 39.3-48.6 [facility] Comment on above: Performed By: #### 2 848295 ####[place] [facility] [place] [address] WBC (Leukocytes) 6.9 10*3/uL Normal 4.4-9.9 [facility] Comment on above: Performed By: #### 2 087637 ####[place] [facility] [address] [place] [address] BASIC METABOLIC PANELon 12-25 Anion gap 11 mmol/L Normal 10 - 20 [facility] Comment on above: Performed By: #### B MP ####[facility] [id number] [place] [address] Bicarbonate (HCO3) 26 mmol/L Normal 21 - 32 [facility] Comment on above: Performed By: #### B MP ####[facility] [id number] [place] [address] Calcium 10.0 mg/dL Normal 8.6 - 10.3 [facility] Comment on above: Performed By: #### B MP ####[facility] [id number] [place] 8526322 Chloride 107 mmol/L Normal 98 - 107 [facility] Comment on above: Performed By: #### B MP ####[facility] [id number] [place] 8526322 Creatinine 0.92 mg/dL Normal 0.50 - 1.05 [facility] Comment on above: Performed By: #### B MP ####[facility] [id number] [place] 8526322 eGFR (non-black) 73 mL/min/{1.73_m2} Normal >60 [facility] Comment on above: Result Comment: CALC ULATIONS OF ESTIMATED GFR ARE PERFORMED USING THE MDRD STUDY EQUATION FOR THE IDMS-TRACEABLE CREATININE METHODS. CLIN CHEM 2007;53:766-72 Performed By: #### B MP ####[facility] [id number] [place] [address] eGFR (non-black) 60 mL/min/{1.73_m2} Invalid Interpretation Code >60 [facility] Comment on above: Performed By: #### B MP ####[facility] [place] [id number] Glucose mass conc 122 mg/dL High 74 - 99 [facility] Comment on above: Performed By: #### B MP ####[facility] [place] 8526322 Potassium molar conc 4.1 mmol/L Normal 3.5 - 5.3 [facility] Comment on above: Performed By: #### B MP ####[facility] [place] 8526322 Sodium 140 mmol/L Normal 136 - 145 [facility] Comment on above: Performed By: #### B MP ####[facility] [place] [id number] Urea nitrogen 12 mg/dL Normal 6 - 23 [facility] Comment on above: Performed By: #### B MP ####[facility] [place] 8526322 CBCon 01-09-2018 Erythrocyte distribution width Auto Ratio (RBC) 13.4 % Normal 11.5 - 14.5 [facility] Comment on above: Performed By: #### B MP ####[facility] [place] 8526322 Erythrocytes (RBC) 5.55 x10E12/L High 4.00 - 5.20 [facility] Comment on above: Performed By: #### B MP ####[facility] [place] 8526322 Hematocrit (HCT) 50.8 % High 36.0 - 46.0 [facility] Comment on above: Performed By: #### B MP ####[facility] [place] 8526322 Hemoglobin mass conc (Bld) 16.9 g/dL High 12.0 - 16.0 [facility] Comment on above: Performed By: #### B MP ####[facility] [id number] [place] [address] MCHC mass conc (RBC) 33.3 g/dL Normal 32.0 - 36.0 [facility] Comment on above: Performed By: #### B MP ####[facility] [id number] [place] [address] MCV 92 fL Normal 80 - 100 [facility] Comment on above: Performed By: #### B MP ####[facility] [id number] [place] [address] Platelets 240 10*3/uL Normal 150 - 450 [facility] Comment on above: Performed By: #### B MP ####[facility] [id number] [place] [address] WBC (Leukocytes) 7.9 10*3/uL Normal 4.4 - 11.3 [facility] Comment on above: Performed By: #### B MP ####[facility] [id number] [place] [address] Daily Progress Note-Medicine on 01-09-2018 Daily Progress [...] night.Objective Data:Objective Information: T P R BP [id number] 36.5 50 18 149/73 91%Date/Time 01/09 7:29 01/09 7:29 01/09 7:29 01/09 7:29 01/09 7:29Range (36.4C - 36.8C ) (50 - 67 ) (18 - 19 ) (131 - 153 )/(55 - 95 ) (91%- 95% )Pain at Rest reported at 01/09 4:25: 0 T P R BP [id number] 36.5 50 18 149/73 91%Date/Time 01/09 7:29 [...] care reviewed.A/P - As Ophelia Jensen MSN, SWIMMING POOL SERVICE TECHNICIAN-CAREER PROFESSIONAL-In collaboration with Dr. William Mc[facility]alT[facility]Office: [phone]: [phone]: [phone] [facility] [address] [place], [place] [address]Impression 1: cvaPlan for Impression 1: -jeanne cerebellar [...] my personal encounter.Comments/ Additional Findingspt seen with ADMINISTRATIVE DIRECTOR earlier todayno distresschest clearcvs heart sounds regularext no edemaabdo soft nontende r bs active, no massescns alert oriented a5aigbgo dysarthria presentlabs revieweda/p cont with asa, plavix, statinresumed ramiprilecho notedwill dc to acute rehabVijay Kalli, MDdischarge planning > 35 minElectronic Signatures:Suraj Jensen (SWIMMING POOL SERVICE TECHNICIAN-CAREER PROFESSIONAL) (Signed 09-Jan-2018 10:06) Authored: Service, Subjective Data, Objective Data, Assessment and Plan,Signature/Cosignature/ AttestationTaylor Mahan) (Signed 09-Jan-2018 23:58) Authored: Signature/Cosignature/Attes tation Co-Signer: Service, Subjective Data, Objective Data, Assessment and Plan,Signature/Cosignature/ AttestationLast Updated: 09-Jan-2018 23:58 by Taylor Mahan) Normal [facility] Discharge Cryofjj4gn 16- 018 Discharge Profile2 Discharge Orders:Anticipated Discharge Date:? Anticipated Discharge Date [id number]:activit y with assistance.May not drive.Diet:? Diet resume normal dietLabs 1:? Lab Test(s) Basic Metabolic Panel, CBC? Comments Recommend CBC/BMP 2-3x/week or as clinically indicated but DefertoFacility MD/NPAdditional Orders:? Vital Signs Recommend BID but Defer to Facility MD/ADMINISTRATIVE DIRECTOR? Additional InstructionsPlease follow up with cerebrovascular neurology (such as Jose Maria Kaiser,Jarrell) for post stroke follow up in 4-6 weeks[facility]Department of Buygqkpoo[address] [place], [place] [address]Portnj: or or - Call to schedulePlease follow up with neuro surgery for aneurysm recommendations--Referral has been made to sodder service awaiting outpatient referralCall Provider If (Homegoing [...] Orders:? Occupational Therapy Orders Eval and Treat ([facility])? Physical Therapy Orders Eval and Treat ([facility])Provider Follow Up:? Physician [...] Appointment 02:? Physician/Dept/Service As aboveGold Form - Pot Press Operator Summary:Community Support:? Support System Dtr - JoyceReferral Information:? Referral To Rehab? Referring Facility And Unit [facility]? Contact Name YISEL Nelson? Contact Insurance 1:? Insurance See Face SheetSocial Security:? Social Security Number See Face SheetMental & Functional Status:? Mental/Behavioral Status alert, calm, oriented? Oriented to person, time and place? Functional Status Prior To Admission Pt was living with spouse. She wasindependent prior to admisison? Capacity For Independent Living/Cyber Policy And Strategy Planner Plan Rehab and return homeElectronic Signatures:Silvina Meng (INSPECTOR HAIRSPRING-S) (Signed 09-Jan-2018 16:20) Authored: Gold Form - Pot Press Operator Suraj Pavon (SWIMMING POOL SERVICE TECHNICIAN-CAREER PROFESSIONAL) (Signed 09-Jan-2018 10:18) Authored: Discharge Orders, Hospital Course (Home Care/Gold Form), Gold FormOrders, Provider FINAL REVIEW of Orders, Appointments, Gold Form - SocialServices SummaryTaylor Mahan) (Signed 09-Jan-2018 17:51) Authored: Provider FINAL REVIEW of OrdersLast Updated: 09-Jan-2018 17:51 by Taylor Mahan) Normal [facility] Echocardiogramon 01-09-2018 Echocardiogram [facility] , [address] [place] [address] and [id number] ECHOCARDIOGRAM REPORT Patient Name: ALICIA Mcknight Physician: [id number] Abdi Vyas MDStudy Date: 01/09/2018 Referring Taylor Mahan MD Physician:MRN/PID: [id number] PCP: unknownAccession/Order#: [id number] Department [facility] Non Invasive Location:Date of : 1945 Fellow:Gender: F Nurse: Latonya Martin Date: 01/06/2018 Biller: Hubert Crable RDCSAdmission Status: Inpatient - Additional Staff: RoutineHeight: 147.00 cm CC Report to: [address] [place], [place] [address]jaWeight: 65.70 kg Study Type: EchocardiogramBSA: 1.59 a3Cfshf Pressure: 140 /81 mmHgDiagnosis/ICD: I67.89 Other cerebrovascular diseaseIndication: StrokeProcedure/CPT: Echo Complete w/Full Doppler ([id number])Patient History:Pertinent History: TIA.Study Detail: The following Echo [...] 24.4 cm2LA Area A2C: 22.2 cm2LA Major Bruneau A4C: 5.7 cmLA Major Bruneau A2C: 6.1 cmLA Volume Index: 50.9 ml/z2U-PPNR MEASUREMENTS: Normal Ranges:Ao Root: 2.70 cm (2.0-3.7cm)AORTA [...] S/D Neymar: 1.40PulmV Sys Neymar: 38.50 cm/s 16492 Abdi Vyas MDElectronically signed on 01/09/2018 at 2:39:03 PM Final Normal [facility] TROPONIN Ion 01-09-2018 Troponin I.cardiac mass conc ng/mL Normal 0.00 - 0.03 [facility] Comment on above: Result Comment: LESS THAN 0.04 NG/ML: NEGATIVEREPEAT TESTING IN FOUR TO SIX HOURSIF CLINICALLY INDICATED.0.04 - 0.5 NG/ML: CONSISTENT WITH POSSIBLECARDIAC DAMAGE AND POSSIBLE INCREASEDCLINICAL RISK.SERIAL MEASUREMENTS MAY HELP ASSESS EXTENT OFMYOCARDIAL DAMAGE.>0.5 NG/ML: CONSISTENT WITH CARDIAC DAMAGE,INCREASED CLINICAL RISK AND MYOCARDIALINFARCTION. SERIAL MEASUREMENTS MAY HELPASSESS EXTENT OF MYOCARDIAL DAMAGE..Note: Troponin I testing is performed using differenttesting methodology at [facility] than at [facility]. Direct result comparisons should onlybe made within the same method. Performed By: #### P TINR ####[facility] [id number] [place] [address] BASIC METABOLIC PANELon 12-25 Anion gap 13 mmol/L Normal 10 - 20 [facility] Comment on above: Performed By: #### P TINR ####[facility] [id number] [place] [address] Bicarbonate (HCO3) 24 mmol/L Normal 21 - 32 [facility] Comment on above: Performed By: #### P TINR ####[facility] [id number] [place] [address] Calcium 9.9 mg/dL Normal 8.6 - 10.3 [facility] Comment on above: Performed By: #### P TINR ####[id number] [place] [id number] Chloride 108 mmol/L High 98 - 107 [facility] Comment on above: Performed By: #### P TINR ####[id number] [place] [id number] Creatinine 0.88 mg/dL Normal 0.50 - 1.05 [facility] Comment on above: Performed By: #### P TINR ####[id number] [place] [id number] eGFR (non-black) mL/min/{1.73_m2} Normal >60 [facility] Comment on above: Result Comment: CALC ULATIONS OF ESTIMATED GFR ARE PERFORMED USING THE MDRD STUDY EQUATION FOR THE IDMS-TRACEABLE CREATININE METHODS. CLIN CHEM 2007;53:766-72 Performed By: #### P TINR ####[facility] [id number] [place] [address] Glucose mass conc 89 mg/dL Normal 74 - 99 [facility] Comment on above: Performed By: #### P TINR ####[facility] [id number] [place] [id number] Potassium molar conc 4.0 mmol/L Normal 3.5 - 5.3 Formerly named [facility] Comment on above: Performed By: #### P TINR ####[facility] [id number] [place] [address] Sodium 141 mmol/L Normal 136 - 145 [facility] Comment on above: Performed By: #### P TINR ####[facility] [place] [id number] Urea nitrogen 10 mg/dL Normal 6 - 23 [facility] Comment on above: Performed By: #### P TINR ####[facility] [id number] [place] [id number] BNPon 01-08-2018 BNP 159 pg/mL High 0 - 99 [facility] Comment on above: Result Comment: . <1 00 pg/mL - Heart failure [id number] pg/mL - Intermediate probability of acute heart. failure exacerbation. Correlate with clinical. context and patient history. >=300 pg/mL - Heart Failure likely. Correlate with clinical. context and patient history.BNP testing is performed using different testingmethodology at [facility] than at [facility]. Direct result comparisons shouldonly be made within the same method. Performed By: #### P TINR ####[facility] [id number] [place] [id number] CBCon 01-08-2018 Erythrocyte distribution width Auto Ratio (RBC) 13.2 % Normal 11.5 - 14.5 [facility] Comment on above: Performed By: #### P TINR ####[facility] [id number] [place] [id number] Erythrocytes (RBC) 5.57 x10E12/L High 4.00 - 5.20 [facility] Comment on above: Performed By: #### P TINR ####[facility] [id number] [place] [id number] Hematocrit (HCT) 49.1 % High 36.0 - 46.0 [facility] Comment on above: Performed By: #### P TINR ####[facility] [id number] [place] [id number] Hemoglobin mass conc (Bld) 16.8 g/dL High 12.0 - 16.0 [facility] Comment on above: Performed By: #### P TINR ####[facility] [id number] [place] [id number] MCHC mass conc (RBC) 34.2 g/dL Normal 32.0 - 36.0 [facility] Comment on above: Performed By: #### P TINR ####[facility] [id number] [place] [address] MCV 88 fL Normal 80 - 100 [facility] Comment on above: Performed By: #### P TINR ####[facility] [id number] [place] [address] Platelets 232 10*3/uL Normal 150 - 450 [facility] Comment on above: Performed By: #### P TINR ####[facility] [id number] [place] [address] WBC (Leukocytes) 7.0 10*3/uL Normal 4.4 - 11.3 [facility] Comment on above: Performed By: #### P TINR ####[facility] [id number] [place] [address] Daily Progress Note-Medicine on 01-08-2018 Daily Progress Note-Medicine Service: MedicineSubjective Data:ALICIA BARRIENTOS is a 72 year old Female who is Hospital Day # 3.Pt in bed with no new complaints. Still some trouble with word finding andweaknesswalking with alker.Overnight Events: Patient had an uneventful night.Objective Data:Objective Information: T P R BP [id number] 36.6 49 18 152/57 93%Date/Time 01/08 4:45 01/08 4:45 01/08 4:45 01/08 4:45 01/08 4:45Range (36.4C - 36.6C ) (48 - 57 ) (14 - 18 ) (141 - 174 )/(57 - 84 ) (93%- 98% ) T P R BP QeG5Mrokz 36.6 49 18 152/57 93%Date/Time 01/08 4:45 [...] care reviewed.A/P - As belowSuraj Jensen MSN, SWIMMING POOL SERVICE TECHNICIAN-CAREER PROFESSIONAL-In collaboration with Dr. William Foreman [facility]Office: [phone]: [phone]: [phone] [facility] [address] [place], [place] [address]Impression 1: cvaPlan for Impression 1: -jeanne cerebellar [...] plan ac rehabTaylor Mahan MDElectronic Signatures:Suraj Jensen (SWIMMING POOL SERVICE TECHNICIAN-CAREER PROFESSIONAL) (Signed 08-Jan-2018 10:50) Authored: Service, Subjective Data, Objective Data, Assessment and Plan,Signature/Cosignature/ AttestationTaylor Mahan) (Signed 09-Jan-2018 05:58) Authored: Subjective Data, Assessment and Plan,Signature/Cosignature/ Attestation Co-Signer: Service, Subjective Data, Objective Data, Assessment and Plan,Signature/Cosignature/ AttestationLast Updated: 09-Jan-2018 05:58 by Taylor Mahan) Normal [facility] Daily Progress Ubdb-Qlrll-Jq monica 01-08-2018 Daily Progress Vibt-Whoan-Vasyfnc Service: Neuro-GeneralSubjective Data:ALICIA BARRIENTOS is a 72 year old Female who is Hospital Day # 3.Additional Information:No new complaints. She walked with PT.Objective Data:Objective Information: T P R BP [id number] 36.6 49 18 152/57 93%Date/Time 01/08 4:45 [...] benefit from rehab.Signature/Cosignature /Attestation:Provider/Team Contact Info-Pager Number [phone] Signatures:Hubert Hurd) (Signed 08-Jan-2018 14:18) Authored: Service, Subjective Data, Objective Data, Assessment and Plan,Signature/Cosignature/ AttestationLast Updated: 08-Jan-2018 14:18 by Hubert Hurd) Normal [facility] TROPONIN Ion 01-08-2018 Troponin I.cardiac mass conc 0.02 ng/mL Normal 0.00 - 0.03 [facility] Comment on above: Result Comment: LESS THAN 0.04 NG/ML: NEGATIVEREPEAT TESTING IN FOUR TO SIX HOURSIF CLINICALLY INDICATED.0.04 - 0.5 NG/ML: CONSISTENT WITH POSSIBLECARDIAC DAMAGE AND POSSIBLE INCREASEDCLINICAL RISK.SERIAL MEASUREMENTS MAY HELP ASSESS EXTENT OFMYOCARDIAL DAMAGE.>0.5 NG/ML: CONSISTENT WITH CARDIAC DAMAGE,INCREASED CLINICAL RISK AND MYOCARDIALINFARCTION. SERIAL MEASUREMENTS MAY HELPASSESS EXTENT OF MYOCARDIAL DAMAGE..Note: Troponin I testing is performed using differenttesting methodology at [facility] than at [facility]. Direct result comparisons should onlybe made within the same method. Performed By: #### P TINR ####[id number] [place] [id number] BASIC METABOLIC PANELon 12-25 Anion gap 12 mmol/L Normal 10 - 20 [facility] Comment on above: Performed By: #### C BCDF ####[facility] [id number] [place] [id number] Bicarbonate (HCO3) 25 mmol/L Normal 21 - 32 [facility] Comment on above: Performed By: #### C BCDF ####[facility] [id number] [place] [address] Calcium 9.9 mg/dL Normal 8.6 - 10.3 [facility] Comment on above: Performed By: #### C BCDF ####[facility] [id number] [place] [address] Chloride 107 mmol/L Normal 98 - 107 [facility] Comment on above: Performed By: #### C BCDF ####[facility] [id number] [place] [address] Creatinine 0.88 mg/dL Normal 0.50 - 1.05 [facility] Comment on above: Performed By: #### C BCDF ####[facility] [id number] [place] [address] eGFR (non-black) mL/min/{1.73_m2} Normal >60 [facility] Comment on above: Result Comment: CALC ULATIONS OF ESTIMATED GFR ARE PERFORMED USING THE MDRD STUDY EQUATION FOR THE IDMS-TRACEABLE CREATININE METHODS. CLIN CHEM 2007;53:766-72 Performed By: #### C BCDF ####[facility] [id number] [place] [id number] Glucose mass conc 92 mg/dL Normal 74 - 99 [facility] Comment on above: Performed By: #### C BCDF ####[id number] [place] [id number] Potassium molar conc 4.0 mmol/L Normal 3.5 - 5.3 Formerly named [facility] Comment on above: Performed By: #### C BCDF ####[facility] [id number] [place] [id number] Sodium 140 mmol/L Normal 136 - 145 [facility] Comment on above: Performed By: #### C BCDF ####[facility] [id number] [place] [address] Urea nitrogen 10 mg/dL Normal 6 - 23 [facility] Comment on above: Performed By: #### C BCDF ####[facility] [id number] [place] [address] CBCon 01-07-2018 Erythrocyte distribution width Auto Ratio (RBC) 13.5 % Normal 11.5 - 14.5 [facility] Comment on above: Performed By: #### C BCDF ####[facility] [id number] [place] [address] Erythrocytes (RBC) 5.45 x10E12/L High 4.00 - 5.20 [facility] Comment on above: Performed By: #### C BCDF ####[facility] [id number] [place] [address] Hematocrit (HCT) 50.4 % High 36.0 - 46.0 [facility] Comment on above: Performed By: #### C BCDF ####[facility] [id number] [place] [address] Hemoglobin mass conc (Bld) 16.6 g/dL High 12.0 - 16.0 [facility] Comment on above: Performed By: #### C BCDF ####[facility] [id number] [place] [address] MCHC mass conc (RBC) 32.9 g/dL Normal 32.0 - 36.0 [facility] Comment on above: Performed By: #### C BCDF ####[facility] [id number] [place] [address] MCV 92 fL Normal 80 - 100 [facility] Comment on above: Performed By: #### C BCDF ####[facility] [id number] [place] [address] Platelets 238 10*3/uL Normal 150 - 450 [facility] Comment on above: Performed By: #### C BCDF ####[facility] [id number] [place] [address] WBC (Leukocytes) 7.2 10*3/uL Normal 4.4 - 11.3 [facility] Comment on above: Performed By: #### C BCDF ####[facility] [id number] [place] [address] Consult - Neuro-Generalon Consult - Neuro-General Service:Service:Service: [...] effacement of 4thventricle.Head 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 Attention and concentration: 02/28 WORLDbackward. [facility] for medical information. All modalities [...] in 2-3 months.Signature/Cosignatur e/Attestation:Provider/Team Contact Info-Pager Number [phone] Signatures:Hbuert Hurd) (Signed 07-Jan-2018 12:30) Authored: Service, History of Present Illness, Review Family/Social Historyand ROS, Allergies, Objective, Assessment/Recommendations, Signature/Cosignature/Attes tationLast Updated: 07-Jan-2018 12:30 by Hubert Hurd) Normal [facility] HEMOGLOBIN A1Con 01-07-2018 Glucose mass conc 88 mg/dL Normal [facility] Comment on above: Performed By: #### P TINR ####[facility] [id number] [place] [address] Hemoglobin A1c/Hemoglobin.total mass fraction (Bld) 4.7 % Normal [facility] Comment on above: Result Comment: Diag nosis of Diabetes-Adults Non-Diabetic: < or = 5.6% Increased risk for developing diabetes: 5.7-6.4% Diagnostic of diabetes: > or = 6.5%. Monitoring of Diabetes Age (y) Therapeutic Goal (%) Adults: >18 <7.0 Pediatrics: 13-18 <7.5 7-12 <8.0 0- 6 7.5-8.5 [place] [employer]. Diabetes Care 33(S1), Oct 2009. Performed By: #### P TINR ####[facility] [id number] [place] [address] History and Physicalon 01-07 History and Physical [...] appropriate and is usually taking care of [facility]the medical center medical history significant for hypertension [...] Loss/ChangeObjective:Object betzaida Information: T P R BP [id number] 35.8 47 14 170/64 99%Date/Time 01/07 8:38 [...] 07-Jan-2018 09:46 by Taylor Mahan) Normal [facility] LIPID PANEL (CORONARY RISK 2 )on 01-07-2018 Cholesterol 196 mg/dL Normal 0 - 199 [facility] Comment on above: Result Comment: . AG [...] Metamizole dosing. Performed By: #### C BCDF ####[facility] [id number] [place] [address] Cholesterol in VLDL mass conc 24 mg/dL Normal 0 - 40 [facility] Comment on above: Performed By: #### C BCDF ####[id number] [place] [address] Cholesterol to HDL Ratio 4.4 {ratio} Normal [facility] Comment on above: Result Comment: REF VALUESDESIRABLE < 3.4HIGH RISK > 5.0 Performed By: #### C BCDF ####[id number] [place] [address] HDL Cholesterol 44.9 mg/dL Normal [facility] Comment on above: Result Comment: . AG E VERY LOW LOW NORMAL HIGH 0-19 Y < 35 < 40 40-45 ---- 20-24 Y ---- < 40 >45 ---- >24 Y ---- < 40 40-60 >60. Performed By: #### C BCDF ####[facility] [id number] [place] [address] LDL Cholesterol 127 mg/dL High 0 - 99 [facility] Comment on above: Result Comment: . TIM TAPIA AGE DESIRABLE OPTIMAL HIGH HIGH VERY HIGH 0-19 Y 0 - 109 --- 110-129 >/= 130 ---- 20-24 Y 0 - 119 --- 120-159 >/= 160 ---- >24 Y 0 - 99 100-129 130-159 160-189 >/=190. Performed By: #### C BCDF ####[facility] [id number] [place] [address] Triglyceride 119 mg/dL Normal 0 - 149 [facility] Comment on above: Result Comment: . AG [...] Metamizole dosing. Performed By: #### C BCDF ####[facility] [id number] [place] [address] NR MRA NECK WO.Con 8 NR MRA [...] signed by: PRABHA GOMEZ MD Normal [facility] Admission Risk Screen - Adul ton 01-06-2018 [...] Directive type Living Will, Durable Power of Jazz Musician forHealthcare? Living Will Availability Living Will not available now? Living Will Requested 06-Jan-2018? Durable Power of Jazz Musician Availability DPOA not available now? Durable Power of Jazz Musician Requested 06-Jan-2018? Durable Power of Jazz Musician contact (name and number) daughter [phone]? Advance Directive Mental Health not applicableFalls Screen:Type [...] instruction? Cultural Considerations none? Developmental Considerations none? Gnosticism Considerations catholicLearning Assessment (Other Learner):? Other learner [...] noSpiritual Screen:? Are there any cultural, spiritual, yarsanism practices/values/needs that areimportant for us to know? yes catholicCAGE:Is this an injured [place] at a [place] no (1)Vaccinations:Vaccination - Influenza Vaccination [...] Adult Emergency 01/06/2018 11:29 AM Normal [facility] BASIC METABOLIC PANELon - Anion gap 14 mmol/L Normal 10 - 20 [facility] Comment on above: Performed By: #### B MP ####[facility] [id number] [place] [address] Bicarbonate (HCO3) 25 mmol/L Normal 21 - 32 [facility] Comment on above: Performed By: #### B MP ####[id number] [place] [id number] Calcium 10.6 mg/dL High 8.6 - 10.3 [facility] Comment on above: Performed By: #### B MP ####[id number] [place] [id number] Chloride 104 mmol/L Normal 98 - 107 [facility] Comment on above: Performed By: #### B MP ####[id number] [place] [id number] Creatinine 1.01 mg/dL Normal 0.50 - 1.05 [facility] Comment on above: Performed By: #### B MP ####[id number] [place] [id number] eGFR (non-black) 65 mL/min/{1.73_m2} Normal >60 [facility] Comment on above: Result Comment: CALC ULATIONS OF ESTIMATED GFR ARE PERFORMED USING THE MDRD STUDY EQUATION FOR THE IDMS-TRACEABLE CREATININE METHODS. CLIN CHEM 2007;53:766-72 Performed By: #### B MP ####[id number] [place] [id number] eGFR (non-black) 54 mL/min/{1.73_m2} Invalid Interpretation Code >60 [facility] Comment on above: Performed By: #### B MP ####[facility] [id number] [place] [id number] Glucose mass conc 94 mg/dL Normal 74 - 99 [facility] Comment on above: Performed By: #### B MP ####[id number] [place] [id number] Potassium molar conc 3.9 mmol/L Normal 3.5 - 5.3 Formerly named [facility] Comment on above: Performed By: #### B MP ####[facility] [place] [id number] Sodium 139 mmol/L Normal 136 - 145 [facility] Comment on above: Performed By: #### B MP ####[facility] [place] [id number] Urea nitrogen 11 mg/dL Normal 6 - 23 [facility] Comment on above: Performed By: #### B MP ####[facility] [id number] [place] [id number] CBC AND DIFFERENTIALon 01-06 % AUTOMATED IMMATURE GRAN 0.4 % Normal 0.0 - 0.9 [facility] Comment on above: Result Comment: Perc ent differential counts (%) should be interpreted in the context of the absolute cell counts (cells/L). Performed By: #### C BCDF ####[facility] [id number] [place] [id number] % NEUTROPHIL 71.6 % Normal 40.0 - 80.0 [facility] Comment on above: Performed By: #### C BCDF ####[facility] [place] [id number] Basophils/100 WBC Auto (Bld) 0.02 x10E9/L Normal 0.00 - 0.10 [facility] Comment on above: Performed By: #### C BCDF ####[id number] [place] [address] Basophils/100 WBC Auto (Bld) 0.3 % Normal 0.0 - 2.0 [facility] Comment on above: Performed By: #### C BCDF ####[facility] [place] [id number] Eosinophils 0.20 10*3/uL Normal 0.00 - 0.40 [facility] Comment on above: Performed By: #### C BCDF ####[id number] [place] [id number] Eosinophils/100 leukocytes 2.7 % Normal 0.0 - 6.0 [facility] Comment on above: Performed By: #### C BCDF ####[facility] [id number] [place] [id number] Erythrocyte distribution width Auto Ratio (RBC) 13.3 % Normal 11.5 - 14.5 [facility] Comment on above: Performed By: #### C BCDF ####[facility] [address] [place] [id number] Erythrocytes (RBC) 5.86 x10E12/L High 4.00 - 5.20 [facility] Comment on above: Performed By: #### C BCDF ####[facility] [address] [place] [id number] Hematocrit (HCT) 53.7 % High 36.0 - 46.0 [facility] Comment on above: Performed By: #### C BCDF ####[facility] [address] [place] [id number] Hemoglobin mass conc (Bld) 17.8 g/dL High 12.0 - 16.0 [facility] Comment on above: Performed By: #### C BCDF ####[facility] [address] [place] [id number] Lymphocytes 1.30 10*3/uL Normal 0.80 - 3.00 [facility] Comment on above: Performed By: #### C BCDF ####[facility] [address] [place] [id number] Lymphocytes/100 leukocytes 17.4 % Normal 13.0 - 44.0 [facility] Comment on above: Performed By: #### C BCDF ####[facility] [id number] [place] [address] MCHC mass conc (RBC) 33.1 g/dL Normal 32.0 - 36.0 [facility] Comment on above: Performed By: #### C BCDF ####[facility] [id number] [place] [address] MCV 92 fL Normal 80 - 100 [facility] Comment on above: Performed By: #### C BCDF ####[facility] [id number] [facility] [address] Monocytes 0.57 10*3/uL Normal 0.05 - 0.80 [facility] Comment on above: Performed By: #### C BCDF ####[facility] [id number] [place] [address] Monocytes/100 leukocytes 7.6 % Normal 2.0 - 10.0 [facility] Comment on above: Performed By: #### C BCDF ####[facility] [id number] [place] [address] Neutrophils 5.36 10*3/uL Normal 1.60 - 5.50 [facility] Comment on above: Performed By: #### C BCDF ####[facility] [id number] [place] [address] Platelets 252 10*3/uL Normal 150 - 450 [facility] Comment on above: Performed By: #### C BCDF ####[facility] [id number] [facility] [place] [address] WBC (Leukocytes) 7.5 10*3/uL Normal 4.4 - 11.3 [facility] Comment on above: Performed By: #### C BCDF ####[facility] [id number] [facility] [place] [address] CHEST 1 VIEWon 01-06-2018 CHEST 1 VIEW [...] signed by: GILBERTO MORTON MD Normal [facility] CT HEAD WO CONTRASTon 2017 CT HEAD [...] hemorrhage or displaced skull fracture.Electronically signed by: FRANCOISE ARCOS MD Normal [facility] Discharge Planning Noteon Discharge Planning Note Discharge Needs Assessment:? Discharge Planning Assessment Date 06-Jan-2018? Readmission Within the Last 30 Days no previous admission in last 30 daysPatient Learning:? Factors that Impact Ability to Learn none(1)Discharge Planning:Discharge Plannin01/06/18 Social Work ED Review [id number] year old Female presents with complaint(s) of [...] has support from her daughter Nirmala Au [phone] (Lives [place], [place]).Uyen Mcconnell INSPECTOR HAIRSPRING-S3/ 1425Met withpt. at bedside regarding D/C needs. [...] oriented x3 andrequested that her daughter Nirmala ([phone]) be involved in dischargeplanning. LACEY discussed PT/OT rec for [facility]. [facility] and patient would like to go there.Patient/daughter inquired about possibility of patient's going tofacility with patient while she receives rehab. LACEY explained that it wouldlikely be private pay or necessity for a pending medicaid number for patient'shusband to be placed somewhere without a skillable need. SW also explainedthat he would not be able to stay at [facility] with patient.SW offered ongoing support and guidance not only for patient, but in assistingto find ongoing care for patient's while she is hospitalized. SW alsodiscussed costs associated with transportation to [place], and options. Referralmade, pending acceptance, precert, and medically readiness before discharge.-Megan Brady STEELE-S3 1605Pt has been accepted at [facility]. Precert has been initiated. Willfollow.CEDRIC Nelson-S3 1632Pt is stable for transfer. Precert has been obtained. [facility]. Family is transporting pt, leaving between 6 - 6:30pm. RNgiven number for report. Discharge information given to school community relations coordinator.CEDRIC Nelson-SFinal Disposition/Discharge:Dispo sition/Discharge Information:Discharge/Trans rashmi Information:? Discharge/Transfer Date/Time 09-Jan-2018 18:30? Discharged Accompanied By spouse? Discharge Mode wheelchair? Transportation Method private car? Valuables/Medications/Belon gings Returned yes? Final Disposition Rehab Facility or UnitElectronic Signatures:Silvina Meng (INSPECTOR HAIRSPRING-S) (Signed 09-Jan-2018 16:33) Authored: Discharge Planning Amelia Adames (RN) (Signed 09-Jan-2018 21:01) Authored: Final Disposition/DischargeMelchr Elaine castellanos (CHANNEL BUSINESS MANAGER) (Signed 06-Jan-2018 16:57) Authored: Discharge Planning Anette Gill (RN) (Signed 07-Jan-2018 14:32) Authored: Discharge Planning Megan Can (INSPECTOR HAIRSPRING) (Signed 08-Jan-2018 11:19) Authored: Discharge Planning NoteLast Updated: 09-Jan-2018 21:01 by Amelia Alfred (RN)References:1. Data Referenced From Risk Screen - Adult Emergency 01/06/2018 11:29 AM Normal [facility] NR MRA HEAD W/O Con 01-07-20 18 NR MRA HEAD W/O C Name: ALICIA BARRIENTOS STUDY:MRI BRAIN WO; NR MRA HEAD W/O C; 01/06/2018 2:35 pm INDICATION:Signs/Symptoms: tia. COMPARISON:CT head from 01/06/2018 [id number] ORDERING CLINICIAN:VENU SOLER TECHNIQUE:Axial T2, FLAIR, DWI and sagittal and coronal T1 weighted images ofbrain were acquired.Jxjg-am-humpfn MRA of the head was performed. The [...] findingsas stated. This study was interpreted at [facility], [place], [place].Electronically signed by: ROZINA MULLEN MD Normal [facility] NR MRI BRAIN WOon 01-06-2018 NR MRI BRAIN WO Name: ALICIA BARRIENTOS STUDY:MRI BRAIN WO; NR MRA HEAD W/O C; 01/06/2018 2:35 pm INDICATION:Signs/Symptoms: tia. COMPARISON:CT head from 01/06/2018 [id number] ORDERING CLINICIAN:VENU SOLER TECHNIQUE:Axial T2, FLAIR, DWI and sagittal and coronal T1 weighted images ofbrain were acquired.Onpm-bm-tlyvgg MRA of the head was performed. The [...] findingsas stated. This study was interpreted at [facility], [place], [place].Electronically signed by: ROZINA MULLEN MD Normal [facility] PT/INRon 01-06-2018 INR Coag RelTime (PPP) 1.0 {INR} Normal 0.9 - 1.1 [facility] Comment on above: Performed By: #### P TINR ####[facility] [id number] [place] [address] Prothrombin time (PT) Coag time (PPP) 11.3 s Normal 9.8 - 12.7 [facility] Comment on above: Performed By: #### P TINR ####[facility] [id number] [place] [address] Patient Profile - Adult v2on 01-06-2018 Patient Profile - Adult v2 Profile:Initial Info:How to be Addressed Jamari Language Preferred EnglishAre you currently using the Personal Electronic Health Record or MyoScienceArmetheon noAre you interested in learning more about [facility] for the management of yourhealth not at [...] InformationLast Updated: 06-Jan-2018 20:15 by Elva Lyon (LIUS)References:1. Data Referenced From Social Work Assessment 01/06/2018 4:57 PM Normal [facility] Provider Note - EDon 018 Provider Note [...] 72 [facility]. [...] T P R BP SpO2 O2(LPM) %FiO2 Audnrh46-Vhv-4080 12:59:00- 60 18 147/77 96 roomair, no sxfsjbcpxwydslwhku73-Azp-22 18 12:13:00- 64 20 175/104 95 roomair, no -His-92 18 10:34:00- 62 20 154/103 98 roomair, no btqrizcqxociiqggml66-Xzz-48 18 09:54:00- 36.3 60 22 188/119 99room [...] Aphasia. Alert and oriented, cranial nerves grossly intact,uapkmf-ld-zooj intact, symmetric smile.See NIH Stroke Documentation Section [...] drift; limb holds 90 (or 45) degrees niynsto00 secs? NIH 5b. Motor Arm, Right (0) No drift; limb holds 90 (or 45) degrees ydjlwvp08 secs? NIH 6a. Motor Leg, Left (0) No drift; leg holds 30 degree position for full 5secs? NIH 6b. Motor Leg, Right (0) No drift; leg holds 30 degree position forfull5 secs? NIH 8. Sensory (0) Normal; no sensory loss? NIH 9. Best Language (1) Ldlv-tb-opoifoln aphasia; some obvious loss offluency or facility [...] - ED 01/06/2018 9:54 AM Normal [facility] Risk Screen - Adult Emergenc yon 01-06-2018 [...] material? Cultural Considerations none? Developmental Considerations none? Gnosticism Considerations noneLearning Assessment (Other Learner):Learning Assessment (Other [...] an injured patient at a Tra[place] Center ([facility]): noElectronic Signatures:Nancy Zapata (HALIE) (Signed 06-Jan-2018 11:31) Authored: Preferred Language, Advanced Directives, Family Violence Adult,Suicide / Depression, Learning Assessment (Patient), Learning Assessment (OtherLearner), Fall Risk Adult, Pressure Injury, Respiratory / Cough /TB,Smoking/Social History (Required age 13 or older), CAGELast Updated: 06-Jan-2018 11:31 by Nancy Zapata (HALIE)References:1. Data Referenced From Triage - ED 01/06/2018 9:54 AM Normal [facility] TROPONIN Ion 01-06-2018 Troponin I.cardiac mass conc ng/mL Normal 0.00 - 0.03 [facility] Comment on above: Result Comment: LESS THAN 0.04 NG/ML: NEGATIVEREPEAT TESTING IN FOUR TO SIX HOURSIF CLINICALLY INDICATED.0.04 - 0.5 NG/ML: CONSISTENT WITH POSSIBLECARDIAC DAMAGE AND POSSIBLE INCREASEDCLINICAL RISK.SERIAL MEASUREMENTS MAY HELP ASSESS EXTENT OFMYOCARDIAL DAMAGE.>0.5 NG/ML: CONSISTENT WITH CARDIAC DAMAGE,INCREASED CLINICAL RISK AND MYOCARDIALINFARCTION. SERIAL MEASUREMENTS MAY HELPASSESS EXTENT OF MYOCARDIAL DAMAGE..Note: Troponin I testing is performed using differenttesting methodology at [facility] than at [facility]. Direct result comparisons should onlybe made within the same method. Performed By: #### T ROP2 ####[facility] [id number] [place] [address] Triage - EDon 01-06-2018 Triage - ED Chart Review:CHIEF COMPLAINTSHILUIS F BARRIENTOS is a Female patient with a chief complaint of confusion.Onset of the Complaint: [id number] Complaints: EMS reports that pt family states she has been more confusedwith unsteady gait the past few days. Pt is tearful and states that she feelsshe cannot get her words out and just doesn't feel right. Pt moves allextremities. VWx7Ckfeka Date/Time: 06-Jan-2018 09:54Vital Signs:Temperature: 97.5F ( 36.3C) [...] 09:57 by Nancy Zapata (HALIE) Normal [facility] Vital Signs Date Time Vital Sign Value Performing Clinician Facility 01-07-2024 05:30-0400 SaO2% (BldA) [Mass fraction] 100 % JENNYFER GUZMAN [facility] Comment on above: Performed By: #### BMP #### [facility] ([id number]) [address] [place] [address], [address] [place] [address] 01-02-2024 14:00-0500 Hourly Rounding [facility] 01-02-2024 14:00-0500 Promise to Return [facility] 01-02-2024 01:00-0500 Body temperature 97.88 [degF] [facility] 01-02-2024 01:00-0500 Diastolic blood pressure 82 mm[Hg] [facility] 01-02-2024 01:00-0500 Heart rate 53 /min [facility] 01-02-2024 01:00-0500 Hourly Rounding [facility] 01-02-2024 01:00-0500 Mean blood pressure 97 mm[Hg] [facility] 01-02-2024 01:00-0500 Promise to Return [facility] 01-02-2024 01:00-0500 SaO2% (BldA) [Mass fraction] 100 % [facility] 01-02-2024 00:00-0500 [facility] 01-02-2024 00:00-0500 [facility] 01-01-2024 19:30-0500 Diastolic blood pressure 69 mm[Hg] dcjudy [facility] 01-01-2024 19:30-0500 Heart rate 60 /min [facility] 01-01-2024 19:30-0500 Mean blood pressure 88 mm[Hg] [facility] 01-01-2024 19:30-0500 Respiratory rate 16 /min [facility] 01-01-2024 19:30-0500 Systolic blood pressure 126 mm[Hg] [facility] 01-01-2024 19:29-0500 Diastolic blood pressure 77 mm[Hg] mehul [facility] 01-01-2024 19:29-0500 Heart rate 62 /min [facility] 01-01-2024 19:29-0500 Mean blood pressure 101 mm[Hg] [facility] 01-01-2024 19:29-0500 Systolic blood pressure 149 mm[Hg] [facility] 01-01-2024 19:27-0500 Heart rate 48 /min [facility] 01-01-2024 16:19-0500 Heart rate 62 /min [facility] 01-01-2024 16:19-0500 SaO2% (BldA) [Mass fraction] 97 % [facility] 01-01-2024 16:15-0500 Mean blood pressure 101 mm[Hg] [facility] 01-01-2024 16:12-0500 Body temperature 98.06 [degF] [facility] 01-01-2024 12:29-0500 SaO2% (BldA) [Mass fraction] 97 % [facility] 01-01-2024 11:59-0500 Heart rate 48 /min [facility] 01-01-2024 11:58-0500 Mean blood pressure 84 mm[Hg] [facility] 01-01-2024 11:57-0500 Body temperature 97.7 [degF] [facility] 01-01-2024 11:42-0500 Blood Pressure Location [facility] 01-01-2024 10:14-0500 Respiratory rate 12 /min [facility] 01-01-2024 09:33-0500 Respiratory rate 14 /min [facility] 01-01-2024 07:33-0500 Respiratory rate 26 /min [facility] 01-01-2024 07:11-0500 gluc 64 mg/dL [facility] 11-11-2023 18:34-0500 Blood Pressure Location Amariils TORRES [facility] 11-11-2023 18:34-0500 Body temperature 98.42 [degF] Amarilis TORRES [facility] 11-11-2023 18:34-0500 Diastolic blood pressure 70 mm[Hg] Amarilis TORRES [facility] 11-11-2023 18:34-0500 Heart rate 65 /min Amarilis TORRES [facility] 11-11-2023 18:34-0500 Respiratory rate 16 /min Amarilis TORRES [facility] 11-11-2023 18:34-0500 SaO2% (BldA) [Mass fraction] 93 % Christopher BROWN [facility] 11-11-2023 18:34-0500 Systolic blood pressure 120 mm[Hg] Christopher BROWN [facility] 05-13-2023 19:06-0400 Diastolic blood pressure 82 mm[Hg] Christopher BROWN [facility] 05-13-2023 19:06-0400 Mean blood pressure 101 mm[Hg] Christopher BROWN [facility] 05-13-2023 19:06-0400 Systolic blood pressure 138 mm[Hg] Christopher BROWN [facility] 05-13-2023 18:49-0400 Blood Pressure Location Christopher BROWN [facility] 05-13-2023 18:49-0400 Diastolic blood pressure 80 mm[Hg] Christopher BROWN [facility] 05-13-2023 18:49-0400 Heart rate 52 /min Christopher BROWN [facility] 05-13-2023 18:49-0400 Respiratory rate 16 /min Christopher BROWN [facility] 05-13-2023 18:49-0400 SaO2% (BldA) [Mass fraction] 95 % Christopher BROWN [facility] 05-13-2023 18:49-0400 Systolic blood pressure 140 mm[Hg] Christopher BROWN [facility] 11-12-2022 18:14-0500 Blood Pressure Location Christopher BROWN [facility] 11-12-2022 18:14-0500 Diastolic blood pressure 80 mm[Hg] Christopher BROWN [facility] 11-12-2022 18:14-0500 Heart rate 65 /min Christopher BROWN [facility] 11-12-2022 18:14-0500 Respiratory rate 16 /min Christopher BROWN [facility] 11-12-2022 18:14-0500 SaO2% (BldA) [Mass fraction] 97 % Christopher BROWN [facility] 11-12-2022 18:14-0500 Systolic blood pressure 136 mm[Hg] Christopher BROWN [facility] 05-10-2022 16:24-0400 Blood Pressure Location Christrandyer BROWN [facility] 05-10-2022 16:24-0400 Body temperature 97.16 [degF] Christrandyer BROWN [facility] [place] 05-10-2022 16:24-0400 Diastolic blood pressure 60 mm[Hg] Christopher BROWN [facility] [place] 05-10-2022 16:24-0400 Heart rate 54 /min Christopher BROWN [facility] 05-10-2022 16:24-0400 SaO2% (BldA) [Mass fraction] 95 % Christopher BROWN [facility] 05-10-2022 16:24-0400 Systolic blood pressure 120 mm[Hg] Thongdimitris BRIAN [facility] Encounters Encounter Date Encounter Type Care Provider Facility Start: 04-06-2024 End: 04-06-2024 ambulatory AMARILIS KEITH Not Available Start: 03-04-2024 End: 03-04-2024 ambulatory [facility] Start: 01-29-2024 ambulatory Amarilis TORRES Facil ity:[facility] Start: 01-26-2024 Evaluation and manag ement of inpatient CELESTINO COTTO [facility] Start: 01-23-2024 Telephone encounter [facility] Start: 01-20-2024 End: 01-20-2024 ambulatory [facility] Start: 01-19-2024 End: 02-12-2024 Evaluation and management of inpatient KEVIN LOPEZ [facility] Start: 01-13-2024 Telephone encounter Maryanne Caputo [facility] Comment on above: Hospital Follow-up Start: 01-05-2024 Orders Only Candis Velázquez RN Pr [facility] - GEN 2 ICU Start: 01-02-2024 Encounter for preprocedural cardiovascular examination [facility] Start: 01-02-2024 End: 01-19-2024 Evaluation and management of inpatient [facility] Start: 01-02-2024 ambulatory [facility] Start: 01-02-2024 ambulatory [facility] Start: 01-01-2024 End: 01-02-2024 Evaluation and management of inpatient Christiano Castillo Facility:[facility] Start: 01-01-2024 End: 01-02-2024 Evaluation and management of inpatient Daniel Brown [facility] Start: 12-31-2023 End: 12-31-2023 ambulatory ROZINA D DOLCE Not Available Start: 12-22-2023 End: 12-22-2023 ambulatory Thongdimitris TORRES Facility:[facility] Start: 12-01-2023 End: 03-30-2024 [facility] Start: 12-01-2023 End: 03-30-2024 Coordination of care plan Amarilis TORRES [facility] Start: 11-17-2023 [facility] Start: 11-15-2023 End: 11-15-2023 Emergency department patient visit Benjamín Ibanez Facility:[facility] Start: 11-12-2023 End: 11-12-2023 ambulatory Thongdimitris TORRES Facility:[facility] Start: 11-12-2023 End: 11-12-2023 [facility] Start: 11-11-2023 End: 11-11-2023 Lab Drop off Amarilis TORRES [facility] Start: 11-11-2023 End: 11-11-2023 [facility] Start: 11-11-2023 End: 11-11-2023 [facility] Start: 10-15-2023 End: 10-15-2023 ambulatory ROZINA BETTENCOURT Not Available Start: 10-10-2023 End: 10-10-2023 [facility] Start: 06-13-2023 ambulatory Thongdimitris TORRES Facil ity: [place] Start: 05-13-2023 End: 05-13-2023 ambulatory Thongdimitris TORRES Facility:[facility] Start: 05-13-2023 End: 05-13-2023 Patient encounter procedure Thongdimitris BRIAN [facility] Start: 11-30-2022 End: 11-30-2022 Patient encounter procedure Amarilis TORRES [facility] Start: 11-12-2022 End: 11-12-2022 Patient encounter procedure Amarilis TORRES [facility] [place] Start: 05-22-2022 End: 05-22-2022 Patient encounter procedure Amarilis TORRES [facility] Start: 05-18-2022 End: 05-18-2022 Patient encounter procedure Amarilis TORRES [facility] Start: 05-10-2022 End: 05-10-2022 Patient encounter procedure Amarilis TORRES [facility] [place] Start: 01-09-2018 End: 01-22-2018 Ambulatory EARL STAPLETON Facility:[id number] Start: 01-06-2018 End: 01-09-2018 Evaluation and management of inpatient PCP UNKNOWN Facility:[facility] Procedures Date Procedure Procedure Detail Performing [...] Td Vaccines (2 - Td or Tdap) [facility] Start: 01-18-2025 Adult BMI Screening Adult BMI Screening [facility] Start: 01-12-2025 Adult BMI Screening Adult BMI Screening [facility] Start: 01-04-2025 Adult BMI Screening Adult BMI Screening [facility] Start: 01-04-2025 Tobacco Screening Tobacco Screening [facility] Start: 01-01-2025 Depression Screening Depression Screening [facility] Start: 06-21-2024 ambulatory Ambulatory Facility:[facility] Start: 02-26-2024 End: 02-26-2024 Patient encounter procedure 02/26/2024 3:00 PM EDT Office Visit [facility] [address] [place] [address] [phone] Comfort Andujar MD [address] [place] [address], [address], [address], [address] [place] [address] [facility] Start: 02-10-2024 End: 02-10-2024 Patient encounter procedure 02/10/2024 3:30 PM EDT Office Visit [facility] [address] [place] [phone] Teena Bryson PA-C [address] [place] [address] [address] [place] [address] [facility] Start: 02-02-2024 End: 02-02-2024 Patient encounter procedure 02/02/2024 11:00 AM EDT Office Visit [facility] [address] [place] [address] [place] [address] Pippa Copeland, SWIMMING POOL SERVICE TECHNICIAN-CAREER PROFESSIONAL [address], [address] [address] [facility] Start: 06-27-2023 COVID-19 Vaccine ( season) COVID-19 Vaccine () [facility] Start: 2009 Fall Risk Screening Fall Risk Screening [facility] Start: 1994 Administration of varicella zoster vaccine Zoster (Shingles) Vaccine (1 of 2) [facility] Start: 1944 Medicare Annual Wellness Visit Medicare Annual Wellness Visit [facility] Immunizations Immunization Date Immunization Notes Care Provider Fa cility 09-01-2023 influenza virus vacc ine, unspecified formulation Amarilis TORRES [facility] 05-13-2023 tetanus toxoid, redu enio diphtheria toxoid, and acellular pertussis vaccine, adsorbed Amarilis TORRES [facility] 09-07-2022 influenza virus vacc ine, unspecified formulation Amarilis TORRES [facility] 09-07-2022 SARS-CoV-2 (COVID-19 ) [id number] Amarilis TORRES [facility] 09-18-2021 influenza virus vacc ine, unspecified formulation Amarilis TORERS [facility] 09-18-2021 SARS-CoV-2 (COVID-19 ) mRNA BNT-162b2 vax Amarilis TORRES [facility] 02-01-2021 pneumococcal polysaccharide vaccine, 23 valent Amarilis TORRES [facility] [place] Comment on above: Early/Late Reason: E raquel/Late Reason: Other : re- entered 12-23-2020 SARS-CoV-2 (COVID-19 ) mRNA BNT-162b2 vax Amarilis TORRES [facility] [place] Comment on above: Result Comment: gvn @ [facility] 12-02-2020 SARS-CoV-2 (COVID-19 ) mRNA BNT-162b2 vax Amarilis TORRES [facility] [place] Comment on above: Result Comment: 2nd dose received , noted on [employer] 09-19-2020 influenza, high dose seasonal, preservative-free Amarilis TORRES [facility] [place] 08-23-2019 influenza, high dose seasonal, preservative-free Amarilis TORRES [facility] [place] 08-21-2018 influenza virus vacc ine, unspecified formulation Amarilis TORRES [facility] [place] 08-21-2018 pneumococcal conjuga te vaccine, 13 valent Amarilis TORRES [facility] [place] Payers Date Payer Category Payer Medicare [employer] MEDICARE UHC MEDICARE ADVANTAGE PPO [id number] 2023-Present [phone] [address] [address] [place] [address] [id number] 2023 Private Health Insurance [id number] 2022 Medicare [id number] 1945 Unknown [id number] 2.16.840.1.909544.3.579 .2.1286 1944 Unknown [id number] 2.16.840.1.570528.3.579 .2.128 1944 Unknown [id number] 2.16.840.1.540429.3.579 .2.128 1944 Unknown [id number] 2.16.840.1.069169.3.579 .2.128 1944 Unknown [id number] 2.16.840.1.401456.3.579 .2.128 1944 Unknown [id number] 2.16.840.1.050428.3.579 .2.128 1944 Unknown [id number] 2.16.840.1.757208.3.579 .2.128 1944 Unknown [id number] 2.16.840.1.406769.3.579 .2.128 1944 Unknown [id number] 2.16.840.1.979815.3.579 .2.128 1944 Unknown [id number] 2.16.840.1.551042.3.579 .2.182 1944 Unknown [id number] 2.16.840.1.611083.3.579 .2.182 1944 Unknown [id number] 2.16.840.1.887807.3.579 .2.727 1944 Unknown [id number] 2.16.840.1.363820.3.579 .2.727 1944 Unknown [id number] 2.16.840.1.706588.3.579 .2.727 1944 Unknown [id number] 2.16.840.1.979159.3.579 .2.727 1944 Unknown [id number] 2.16.840.1.562712.3.579 .2.727 1944 Unknown [id number] 2.16.840.1.478378.3.579 .2.727 1944 Unknown [id number] 2.16.840.1.846885.3.579 .2.727 1944 Unknown [id number] 2.16.840.1.605729.3.579 .2.727 1944 Unknown [id number] 2.16.840.1.448250.3.579 .2.727 1944 Unknown [id number] 2.16.840.1.605638.3.579 .2.727 1944 Unknown [id number] 2.16.840.1.584992.3.579 .2.727 1944 Unknown [id number] 2.16.840.1.817553.3.579 .2.727 1944 Unknown [id number] 2.16.840.1.406203.3.579 .2.1259 1944 Unknown [id number] 2.16.840.1.524026.3.579 .2.1259 1944 Unknown [id number] 2.16.840.1.618404.3.579 .2.1259 Private Health Insurance [id number] Unknown [id number] Social History Date Type Detail Facility Start: 11-06-2021 End: 12-22-2023 Tobacco smoking status Never smoked tobacco (finding) [facility] Comment on above: denies Tobacco smoking status Never [facility] [place] Comment on above: denies Start: 01-02-2024 End: 01-05-2024 Sex Assigned At Female [facility] Start: 01-02-2024 Tobacco use and exposure Smokeless tobacco non-user [facility] [employer] [facility] Start: 01-05-2024 End: 01-06-2024 Alcohol intake Lifetime non-drinker (finding) [facility] Start: 01-02-2024 End: 01-05-2024 History of Social function [facility] [employer] [facility] Has the [employer], or [employer] threatened to shut off services in your home in past 12Mo No [facility] How often to you hav e a drink containing alcohol? Never [facility] [employer] [facility] Start: 1945 Sex Assigned At Not on file P [employer] [facility] Medical Equipment Procedure Code Equipment Code Equipment Original Text Equipment Identifier Dates Patch Cv 8x.8cm N-Pyrg Tpr End [employer] Decellularized Bvn Rpl [id number] - [id number] Start: 01-05-2024 Goals Date Patient Goal Desired Activity /State Personal health goal Comment on above: Formatting of this n ote might be different from the original. Evaluation of progress towards goal: to discharge safely back home with her daughter and son in law. Functional Status Date Assessment Result Facility 01-01-2024 Functional Status N/A [facility] 01-01-2024 Functional Status [facility] 11-11-2023 Functional Status N/A [facility] 05-13-2023 Functional Status N/A [facility] 11-12-2022 Functional Status N/A [facility] Clinical Notes 04-28-2022 to 03-04-2024 Telephone Encounter - Deisi Alcala [facility] - 01/23/2024 8:52 AM EDTTelephone Encounter - Deisi Alcala [facility] - 01/23/2024 8:52 AM EDTTelephone Encounter - Maryanne Barajas - 01/13/2024 7:56 AM EDT Note Date & Type Note Facility 03-04-2024 Note New patient here to establish care. Ref from Dr. Ann for CVA. She has hx of CABG in 1998, PCI to the ramus, carotid artery stenosis s/p CEA in December 2023. She was recently admitted to [facility] in [place] and consulted by cardiology for bradycardia and possible 2nd degree AV block. Patient is nonverbal and is here today with son in law. She denies chest pain and SOB. Current medication list from pen[facility]iary does not show she is taking aspirin, Brilinta, or statin. She was diagnosed with subarachnoid hemorrhage in [facility] ED on 02/17. Review of Systems Reason unable to perform ROS: able to tell me yes or no. Cardiovascular: Positive for leg swelling (minimal). Musculoskeletal: Positive for myalgias. Neurological: Positive for paresthesias. All other systems reviewed and are negative. [facility] 03-04-2024 Note [facility] [place] [facility] Note Reason for cardiology [...] underwent left carotid endarterectomy on 01/05/2024 in [facility], which was complicated by severe right-sided weakness, aphasia and dysphagia postsurgery. On that admission she was noted to have normal left ventricle systolic function and mild to moderate aortic insufficiency and mitral regurgitation on echo 01/02/2024, she was also evaluated for significant sinus bradycardia while she was in the rehab facility [facility] by [employer] senior specialist Dr. Cotto no high-grade AV block or pauses were noted therefore medical management with avoidance of AV lovely blockers was recommended , she also has history of hypertension, hyperlipidemia, diverticulitis s/p lap colectomy of the sigmoid colon with colorectal anastomosis, history of chronic kidney disease, hypothyroidism, anxiety and depression The patient was [facility] to a [facility]. On 02/18/2024 she was brought to the [facility] emergency room after she fell and she was found to have subarachnoid hemorrhoid. She refused to go to [place], she signed DNR papers, aspirin and Brilinta were discontinued. Of note her vital signs in the emergency room are stable with pulse of 62, respiratory rate 18 and blood pressure 126/65. I also reviewed her vital signs in the penitentiary and they have been stable with a [...] better with physical therapy and with the penitentiary personnel over the last couple weeks. She [...] Coronary artery disease, Hyperlipidemia, Hypertension, and Stroke ([facility]). Surgical History She has a past [...] how (more content not included)... [facility] 01-23-2024 Miscellaneous Notes Phoned and spoke with patient's daughter in regards to scheduling a follow up from most recent hospital stay and per daughter patient was taken from [facility] to [facility] and once patient is discharged from [place] will most likely go to a penitentiary. Per daughter is unsure whether or not the follow up will be needed and will call if it is. documented in this encounter [facility] 01-23-2024 Telephone encounter Note Phoned and spoke with patient's daughter in regards to scheduling a follow up from most recent hospital stay and per daughter patient was taken from [facility] to [facility] and once patient is discharged from [place] will most likely go to a penitentiary. Per daughter is unsure whether or not the follow up will be needed and will call if it is. [facility] 01-13-2024 Miscellaneous Notes Message from the 01/12/24 discharge list per RRK. He signed off patient care from [facility] Carotid Endarterectomy Post op watershed CVA Sinus Bradycardia ASCVD with prior CABG Preserved LV Fxn Patient to f/u in 1 to 2 weeks post d/c bvb PT IS STILL ADMITTED documented in this encounter [facility] 01-13-2024 Telephone encounter Note Message from the 01/12/24 discharge list per RRK. He signed off patient care from [facility] Carotid Endarterectomy Post op watershed CVA Sinus Bradycardia ASCVD with prior CABG Preserved LV Fxn Patient to f/u in 1 to 2 weeks post d/c bvb [facility] 01-13-2024 Telephone encounter Note PT IS STILL ADMITTED [facility] 01-12-2024 Note Admission and Discha rge Information [...] care. They are agreeable to this plan. [facility] initially called for assistance and it was mentioned that the majority of the neuro services are provided by [facility]. 1239- Call placed to [facility] for transfer of neurologic care. Spoke with Dr. Chicas with neuro intervention. He would like to evaluate her MRI scans to determine plan of action and we will reconference. 1355- Did reconference with Dr. Chicas at [facility]. He has accepted her to neuro step [...] PROBABLY DEVELOPMENTAL HYPOPLASIA. Critical communication: Flor Johnson [facility]- was notified at approximately 12:05 PM on 01/01/2024. EXAM: MRA Neck w/o Contrast DATE: 01/01/2024 10:22 AM CLINICAL HISTORY: CVA. COMPARISON: None available. TECHNIQUE: 2D and 3D qfif-ph-npoyri MRA of the neck arterial circulation was [...] Contrast MRI B (more content not included)... [facility] Comment on above: Result Comment: Elec tronically Signed By: Flor Poole\.br\Date and Time Signed: 01/11/24 11:29 EDT\.br\Electronically Co-Signed By: Daniel Brown MD\.br\Date and Time Co-Signed: 01/12/24 07:34 EDT 01-02-2024 Note 1355- Did reconferen ce with Dr. Chicas at [facility]. He has accepted her to neuro step down. We are pending a bed assignment. They would like to complete intervention tomorrow if possible. Plan to hold all antihypertensives, dose with 300 mg of one time dose of plavix as well as continue with daily asa. [facility] Comment on above: Result Comment: Elec tronically Signed By: Flor Poole\.br\Date and Time Signed: 01/01/24 14:00 EST\.br\Electronically Co-Signed By: Kevin TAMZE, Daniel\.br\Date and Time Co-Signed: 01/02/24 22:26 EST 01-02-2024 Hospital Discharg e instructions Patient Education 01/02/2024 13:11:34 Core Measures: Stroke (Cerebrovascular Accident) [facility], (Custom) Stroke (Cerebrovascular Accident) A stroke is [...] factors for stroke, work with your health critical care cns to control them. High Blood Pressure: High [...] Please call [facility] Smoking Cessation Program at [phone] ([facility]), or [phone], ext. [phone] Diabetes: Work with your healthcare professional to [...] cholesterol diet, you can call our [facility] explosive specialist at [phone] Ext. [phone]. The goal for total cholesterol is less [...] your risk of stroke with your health critical care cns. TREATMENT TIME IS OF THE ESSENCE! Medications [...] will be taken to prevent short and fdc complications, including aspiration pneumonia, blood clots in [...] for more information on strokes, log onto www.[email or web address] or www.[email or web address].org or call the [place] [employer] at . Revised 10/2018 Follow Up Care 01/01/2024 06:23:28 With:Amarilis TORRES Address: [address] [place], [place] [id number] Business (1) When: Unknown [facility] 01-02-2024 Note Basic Information Admit Date/Time:01/01/2024 [...] mg/dL High (01/01/24 08:01:00) POC Device SN: [id number] (01/01/24 08:01:00) POC User ID: [id number] (01/01/24 08:01:00) POC Username: CARMELINA ROMAN (01/01/24 08:01:00) UA Spec Desc: Clean Catch (01/01/24 08:42:00) UA Color: Yellow2 (01/01/24 08:42:00) UA Clarity: Clear2 (01/01/24 08:42:00) UA Spec Grav: 1.010 (01/01/24 08:42:00) UA pH: 7.0 (12/31 (more content not included)... [facility] Comment on above: Result Comment: Elec tronically [...] Appointment Date:01/07/2024 09:15:00 AM Scheduled Provider: [facility] App[facility] Type:PT 45 (FT) Appointment Date:01/14/2024 10:00:00 AM Scheduled Provider: [facility] Appointment Type:PT Re-Eval 45 (FT) Appointment Date:06/21/2024 06:00:00 PM Scheduled Provider:[facility] Type: Open Future Scheduled Tests Laboratory* Prealbumin 12/22/23 * Comprehensive Metabolic Panel 12/22/23 * Lipid Panel 12/22/23 [facility]03-07-2024 NoteOT order received and chart reviewed. No OT evaluation complete this date as Pt is being transferred to per nurse.[facility]01-14-2024 Hospital Discharge instructions Patient Education 11/09/2023 12:59:21 [...] Follow these instructions at home: Medicines Take zhgt-xzd-vzsrnde and prescription medicines only as told by [...] is important. Where to find more information [place] [employer] Patients: www.aakp.org National Kidney Foundation: www.kidney.org [place] [employer]: www.akfinc.org Life Options: www.lifeoptions.org Kidney [...] provider. Document Revised: 01/17/2021 Document Reviewed: 01/17/2021 [employer] Patient Education 2022 Book [employer]. Follow Up Care 05/13/2023 19:20:05 With:Amarilis TORRES MD, FAM Address: When:6 weeks Comments:labs will be called [facility] [place] 07-16-2023 Hospital Discharge instructions Patient Education 05/11/2023 07:58:11 Chronic Kidney Disease, Adult, Rszs-vn-Ecpb Chronic Kidney Disease, Adult Chronic kidney disease [...] Follow these instructions at home: Medicines Take tziu-cjk-owehayl and prescription medicines only as told by [...] follow-up visits. Where to find more information [place] [employer] Kidney Patients: www.aakp.org National Kidney Foundation: www.kidney.org [place] [employer]: www.akfinc.org Life Options: www.lifeoptions.org Kidney [...] provider. Document Revised: 01/17/2021 Document Reviewed: 01/17/2021 [employer] Patient Education 2022 [employer] Follow Up Care 11/12/2022 18:45:16 With:Amarilis TORRES MD, FAM Address: [address] [place] [address] [place] [address]- When:6 months Comments:get labs at [facility] in advance perhaps in September, see me in October [facility] [place] 01-17-2023 Hospital Discharge instructions Patient Education [...] Follow these instructions at home: Medicines Take vvaa-rjx-hfjhavc and prescription medicines only as told by [...] 10/13/2006 Document Revised: 07/02/2019 Document Reviewed: 01/08/2017 [employer] Patient Education 2020 Book A Boat. Follow Up Care 05/10/2022 16:43:10 With:Amarilis TORRES MD, FAM Address: [address] [place] [address]- When:6 months Comments:get labs at [facility] soon orders in [facility] [place] 07-03-2022 Hospital Discharge instructions Patient Education [...] 07/07/2013 Document Revised: 02/04/2020 Document Reviewed: 09/10/2017 [employer] Patient Education 2020 Book [employer] Boat. 04/28/2022 21:58:17 Coronary Artery Disease, Female Coronary Artery Disease, Female Coronary artery disease (CAD) is a condition in which the arteries that lead to the heart (coronaryarteries) become narrow or blocked. The narrowing or blockage can lead to decreased blood flow to the heart. Prolonged reduced blood flow can cause a heart attack (myocardial infarction or [place]). This condition may also be called coronary [...] Follow these instructions at home: Medicines Take avty-zzt-mryheck and prescription medicines only as told by [...] 01/04/2013 Document Revised: 07/02/2019 Document Reviewed: 06/22/2019 [employer] Patient Education 2020 Book [employer] Boat. Follow Up Care 11/06/2021 18:51:23 With:Amarilis TORRES MD [facility] Address: [address] [place], [place] [id number]- When:6 months Comments:get labs at [facility] Evaluation + Plan note Future Appointments Appointment Date:11/12/2022 06:20:00 PM Scheduled Provider:Amarilis TORRES MD Location:[facility] Appointment Type: Open Future Scheduled Tests Laboratory* Comprehensive Metabolic Panel 04/28/22 * Lipid Panel 04/28/22 [facility] Evaluation + Plan note Future Appointments Appointment Date:11/12/2022 06:20:00 PM Scheduled Provider:[facility]marilis [facility]ORRES [facility] Future Appointments Appointment Date:05/13/2023 06:40:00 PM Scheduled Provider:Amarilis TORRES MD Location:[facility] Appointment Type: Open Future Scheduled Tests Laboratory* CBC w/ Auto Diff 11/11/22 * Comprehensive Metabolic Panel 11/11/22 * Lipid Panel 11/11/22 [facility] Evaluation + Plan note Future Appointments Appointment Date:05/13/2023 06:40:00 PM Scheduled Provider:Amarilis TORRES MD [facility] Future Appointments Appointment Date:06/06/2023 03:30:00 PM Scheduled Provider: [facility] Type:FM Medicare Wellness Subsequent Appointment Date:11/11/2023 06:20:00 PM Scheduled Provider:Amarilis TORRES MD Location:[facility] Appointment Type: Open Future Scheduled Tests Laboratory* CBC w/ Auto Diff 05/13/23 * Comprehensive Metabolic Panel 05/13/23 * Lipid Panel 05/13/23 [facility] Evaluation + Plan note Future Appointments Appointment Date:12/22/2023 06:20:00 PM Scheduled Provider:Amarilis TORRES MD Location:[facility] Appointment Type: Open Future Scheduled Tests Laboratory* Giardia lamblia, Direct Detection EIA 11/11/23 * O & P Exam, Routine 11/11/23 * Rotavirus Ab 11/11/23 * Clostridium Difficile PCR 11/11/23 * Enteric Panel by PCR 11/11/23 [facility] Evaluation + Plan note Future Appointments Appointment Date:12/22/2023 06:20:00 PM Scheduled Provider:Amarilis TORRES MD Location:[facility] Appointment Type: Open Diagnostic Tests Pending * Urine Culture 11/11/23 Future Scheduled Tests Laboratory* Giardia lamblia, Direct Detection EIA 11/11/23 * O & P Exam, Routine 11/11/23 * Rotavirus Ab 11/11/23 * Clostridium Difficile PCR 11/11/23 * Enteric Panel by PCR [facility]11[facility]23 [facility]ments Appointment Date:12/22/2023 06:20:00 PM Scheduled Provider:Amarilis TORRES MD Location:[facility] Appointment Type: Open Diagnostic Tests Pending * Enteric Panel by PCR 11/12/23 * O & P Exam, Routine 11/12/23 * Giardia lamblia, Direct Detection EIA [facility]12/23 [facility] Future Appointments Appointment Date:06/21/2024 06:00:00 PM Scheduled Provider:Amarilis TORRES MD Location:[facility] Appointment Type: Open Future Scheduled Tests Laboratory* Prealbumin 12/22/23 * Comprehensive Metabolic Panel 12/22/23 * Lipid Panel 12/22/23 [facility] N[facility] No data available for this section [facility] [place] Hospital Discharge instructions No data available for this section [facility]ructions[facility] on filedocumented in this encounter [facility] filedocumented in this encounter [facility] No data available for this section [facility] [place] Summary Purpose [...] and content) DATE CREATED AUTHOR 04/16/2018 [facility] DATE CREATED AUTHOR AUTHOR'S ORGANIZ ATION 04/16/[address] [facility] Healthcare DATE CREATED AUTHOR AUTHOR'S ORGANIZ ATION 01/08/2024 [facility] DATE CREATED AUTHOR AUTHOR'S ORGANIZ ATION 01/22/2024 [facility] DATE CREATED AUTHOR AUTHOR'S ORGANIZ ATION [facility]/2024 [facility] [place] DATE CREATED AUTHOR AUTHOR'S ORGANIZ ATION 03/06/2024 [facility] DATE CREATED AUTHOR AUTHOR'S ORGANIZ ATION 04/01/2024 [facility] DATE CREATED AUTHOR AUTHOR'S ORGANIZ ATION 04/06/2024 [facility] dical Specialists EPIC Care Team (unrecognized sect ion and content) Stitch Burnisher Relationship Specialty Start Date End Date Amarilis Torres MD [address] [place] [address] PCP - General Family Medicine 01/02/24 Stitch Burnisher Relationship Specialty Start Date End Date Amarilis Torres MD [address] [place] [address] PCP - General Family Medicine 01/02/24 Reason [...] BE BASED ON THE PRIMARY CLINICAL RECORDS. [employer] provides no warranty or guarantee of the accuracy or completeness of information in this document.
[2024-04-17] MEDS: 0.9 % SODIUM CHLORIDE 1,000 ML 75 ML IV (20:31)
[2024-04-17] MEDS: LORAZEPAM 2 MG/ML VIAL 1 MG IV (21:48)
[2024-04-18] VITALS (7 sets, daily range): BP systolic 119–177; BP diastolic 51–93; PULSE 40–82; TEMP 36.3–36.8; O2SAT 94–98
[2024-04-18] MEDS: CEFTRIAXONE 1,000 MG in 0.9 % SODIUM CHLORIDE 50 ML 100 MG IV ×2 (01:05→22:04)
--- NOTE | 2024-04-18 02:55 | PC.NURSE ---
2009 Patient arrived to ICU via cart. Daughter and son-in-law present. 2019 Daughter is very concerned about change in patient's condition. States that over the past 48 hours plus Patient is no longer able to communicate to her. States her speech could be difficult to understand but was able to understand what she was trying to communicate. Known to have expressive aphasia. Daughter States patient could answer yes and no questions and was able to use her call light at the detention and propel herself in her wheelchair. Patient was due to move into [facility]isted [facility] area of [facility] next week. At this time, patient is crying out and making repetitive sounds that are unrecognizable by patient's daughter or this RN. Daughter is visibly upset due to patient's current condition. Daughter provided contact information for herself and notes she plans on seeing hospitalist in AM during rounding and she can be called to speak with Hospitalist as well. 2100 Patient is not making any purposeful position changes. Right arm and leg are contracted and rigid to move. Patient cries out when trying to move any part of her extremities. Patient is able to move left hand and arm freely. Patient cried out and grabbed oral swab with left hand when this RN was trying to perform oral care due to dry lips and tongue. No open areas noted on skin. Coccyx area is noted to have thin skin and kranthi prominence. Patient uncovered due to warmth of skin and small fan in room used to circulate air due to warm temperatures in patient room. All needs met at this time.
[2024-04-18] MEDS: LORAZEPAM 2 MG/ML VIAL 1 MG IV ×2 (04:28→09:03)
[2024-04-18 04:33] LABS: Basophils Percent Auto 0.1 % (0.2-2.0); Eosinophils Absolute Auto 0.1 10^3/uL (0.0-0.7); Eosinophils Percent Auto 0.6 % (0.9-7.0); Hemoglobin 11.3 g/dL (12.0-16.0); Immature Granulocytes Abs Auto 0.02 10^3/uL (0.00-0.03); Immature Granulocytes Pct Auto 0.2 % (0.0-0.5); Lymphocytes Absolute Auto 1.8 10^3/uL (1.2-3.8); Lymphocytes Percent Auto 20.9 % (20.5-60.0); Mean Corpuscular HGB Conc 30.5 g/dL (29.9-35.2); Mean Corpuscular Hemoglobin 27.8 pg (26.7-34.0); Mean Corpuscular Volume 91.1 fL (81.0-99.0); Mean Platelet Volume 9.8 fL (9.5-13.5); Monocytes Absolute Auto 0.5 10^3/uL (0.3-0.8); Monocytes Percent Auto 5.9 % (1.7-12.0); Neutrophils Absolute Auto 6.2 10^3/uL (1.4-6.5); Neutrophils Percent Auto 72.3 % (43.0-75.0); Platelet Count 307 10^3/uL (150-450); Red Blood Count 4.06 10^6/uL (4.20-5.40); White Blood Count 8.6 10^3/uL (4.0-11.0)
[2024-04-18 04:53] LABS: Alanine Aminotransferase 8 U/L (14-59); Albumin Globulin Ratio 0.8; Albumin Level 2.4 g/dL (3.4-5.0); Alkaline Phosphatase 97 U/L (46-116); Aspartate Amino Transferase 14 U/L (15-37); Bilirubin Total 0.4 mg/dL (0.2-1.0); Calcium 9.1 mg/dL (8.5-10.1); Carbon Dioxide 23.9 mmol/L (21.0-32.0); Chloride 113 mmol/L (98-107); Estimated GFR (African America 52 (>=60); Estimated GFR (Non-African Ame 43 (>=60); Globulin 3.2 g/dL; Glucose 87 mg/dL (74-106); Potassium 3.9 mmol/L (3.5-5.1); Sodium 145 mmol/L (136-145); Total Protein 5.6 g/dL (6.4-8.2); Troponin I High Sensitivity 32.6 pg/mL (4.0-51.3)
--- NOTE | 2024-04-18 06:26 | ECG_ITS ---
The [facility] Test Date: 2024-04-18 Pat Name: CRUZ GREEN Department: Room: 2731 Gender: Female Warp Splitter: : 1945 Requested By: [id number] Order Number: [id number] Reading MD: AVIVA GARCIA Measurements Intervals [place] Rate: 41 P: 150 PA: 174 QRS: 223 QRSD: 100 T: 106 QT: 528 QTc: 462 Interpretive Statements 1200 Atrial rhythm 3534 Lateral myocardial infarction, age undetermined [address] depression 4164 Twave abnormality, possible anterior - Lateral ischemia 0101 Possible arm leads reversed, check lead requested 9150 abnormal ECG Electronically Signed On 04-18-2024 7:02:03 EDT by AVIVA GARCIA
--- NOTE | 2024-04-18 07:37 | PC.NURSE ---
Disposable brief saturated with usha urine. Strong smelling. Attends changed and patient turned and repositioned with pillows.
[2024-04-18 08:35] LABS: Thyroid Stimulating Hormone 1.726 uIU/mL (0.358-3.740)
[2024-04-18] MEDS: 0.9 % SODIUM CHLORIDE 1,000 ML 75 ML IV ×2 (09:05→21:58)
[2024-04-18] MEDS: LEVOFLOXACIN IN DEXTROSE 5 % 750 MG/150 ML IV.SOLN 100 MG IV (09:13)
--- NOTE | 2024-04-18 09:19 | CT_ITS ---
The [address] [address] Patient Name: CRUZ GREEN MRN: [id number] date: 1945 Sex: F Assigned Patient Location: ICU Current Patient Location: [place] Accession/Order Number: [id number] Exam Date: 04/18/2024 11:15 Report Date: 04/18/2024 14:17 At the request of: AVIVA GARCIA Procedure: CT head/brain wo con HEAD CT WITHOUT CONTRAST, 04/18/2024 11:15 AM EDT: CLINICAL HISTORY: Altered mental status. COMPARISON: CT head dated 04/17/2024. TECHNIQUE: Noncontrast CT imaging was performed from skull base to the vertex. Sagittal and coronal reconstructions performed. Dose reduction techniques were achieved by using automated exposure control and/or adjustment of mA and/or kV according to patient size and/or use of iterative reconstruction technique. FINDINGS: Ventricular and sulcal size is normal for the patient's age. There are mild chronic small vessel ischemic changes. Small chronic right pontine infarct is also identified. There is no mass effect, midline shift or intracranial hemorrhage. There is no evidence of acute infarction. There are no extra axial fluid collections. Visualized paranasal sinuses, mastoid air cells and orbital contents are unremarkable. CT/CT head/brain wo con IMPRESSION: No acute intracranial abnormality. Electronically authenticated by: SALVADOR JIMENEZ Date: 04/18/2024 14:17
--- NOTE | 2024-04-18 09:20 | XR_ITS ---
The [address] [address] Patient Name: CRUZ GREEN MRN: [id number] date: 1945 Sex: F Assigned Patient Location: ICU Current Patient Location: [place] Accession/Order Number: [id number] Exam Date: 04/18/2024 11:15 Report Date: 04/18/2024 14:05 At the request of: AVIVA GARCIA Procedure: XR abdomen 1V EXAM: XR abdomen 1V, XR chest 1V HISTORY: Abdomen pain COMPARISON: Chest radiograph, yesterday at 6:12 PM TECHNIQUE: Portable view of the chest and abdomen obtained FINDINGS: Chronic cardiomegaly. Increasing vascular cephalization. No focal infiltrate. No large effusion. Prior median sternotomy. Nonobstructive bowel gas pattern. No pathologic calcifications. There are surgical clips in the right upper quadrant. XR/XR abdomen 1V IMPRESSION: 1. Cardiomegaly and worsening mild congestive pattern. 2. Nonobstructive bowel gas pattern. Electronically authenticated by: STEPAN MASSEY Date: 04/18/2024 14:05
--- NOTE | 2024-04-18 09:37 | P.HP_ITS ---
HPI H&P: HPI History of Present Illness Chief complaint: Confusion, Altered Mental Status Narrative: Patient with a history of stroke in the past, presented to the emergency room with altered mental status. This has been going on for 1 to 2 days. Started on antibiotics for possible UTI. Urinalysis in ER was unremarkable. Culture that was pending. When I saw patient up in the intensive care unit, she was resting uncomfortably in bed, discussed with daughter her history with strokes. She was actually about 2 to 3 days ago stable to the point that she was going to go to assisted living but has deteriorated since that time. Patient unable to verbalize localized symptoms. Just moaning in bed. Opioid HPI Opioid Management Most Recent Pain and Opioid Data: Last Pain Assessment 04/18/24 06:00 Last ED Pain Assessment 04/17/24 16:28 Last ORT Total Score 0 04/17/24 20:24 Last ORT Risk Category Low Risk 04/17/24 20:24 Review of Systems ROS Status of ROS 10 or more systems reviewed and unremark able except as noted in history and below PFSH PFS Medical History (Updated 04/17/24 @ 19:05 by Immanuel Aponte MD) Seizure-like activity ?R56.9 - Unspecified convulsions (ICD-10) Hyperlipidemia ?E78.5 - Hyperlipidemia, unspecified (ICD-10) HTN (hypertension) ?I10 - Essential (primary) hypertension (ICD-10) CKD stage 3a, GFR 45-59 ml/min ?N18.31 - Chronic kidney disease, stage 3a (ICD-10) Expressive aphasia ?R47.01 - Aphasia (ICD-10) CVA, old, hemiparesis ?I69.359 - Hemiplegia and hemiparesis following cerebral infarction affecting unspecified side (ICD-10) Family History (Updated 02/19/24 @ 01:24 by Noemi Garcia) Other Family history of cancer Family history of hypertension Family history of myocardial infarction Family history of stroke Social History (Updated 02/19/24 @ 01:25 by Noemi Garcia) Within the past year, how often did you have a drink containing alcohol: never Score interpretation: A score less than 3 is consistent with normal alcohol consumption. Smoking status: Never smoker Non-prescribed substance use: denies use Previous occupational history: Retired Highest level of school completed/degree received: don't know Are you now , , , , never or living with a partner: In a typical week, how many times do you talk on the telephone with family, friends, or neighbors: 3 or more times per week How often do you get together with friends or relatives: 3 or more times per week Do you think of yourself as: straight/heterosexual Gender Identity: female Meds Home Medications and Allergies Home Medications ?Medication ?Instructions ?Recorded ?Confirmed ?Type aspirin 81 mg capsule 81 mg PO DAILY 02/18/24 04/17/24 History cholecalciferol (vitamin D3) 50 50 mcg PO DAILY 02/18/24 04/17/24 History mcg (2,000 unit) capsule (D3-2000) diclofenac sodium 1 % topical gel 4 g topical QID 02/18/24 04/17/24 History (Aspercreme Arthritis Pain) levetiracetam 100 mg/mL oral 750 mg PO Q12H 02/18/24 04/17/24 History solution lidocaine 4 % topical patch 1 patch topical DAILY 02/18/24 04/17/24 History (Aspercreme (lidocaine)) mirtazapine 15 mg tablet 15 mg PO DAILY 02/18/24 04/17/24 History oxycodone 5 mg tablet 5 mg PO Q8H PRN pain 02/18/24 04/17/24 History ticagrelor 90 mg tablet (Brilinta) 90 mg PO DAILY 02/18/24 02/18/24 History acetaminophen 325 mg tablet 650 mg PO Q6H PRN fever or pain 04/17/24 04/17/24 History (Non-Aspirin) atorvastatin 80 mg tablet 80 mg PO BEDTIME 04/17/24 04/17/24 History baclofen 10 mg tablet 10 mg PO BID 04/17/24 04/17/24 History ciprofloxacin HCl 500 mg tablet 500 mg PO BID 04/17/24 04/17/24 History (Cipro) levothyroxine 75 mcg tablet 75 mcg PO DAILY 04/17/24 04/17/24 History Allergies Allergy/AdvReac Type Severity Reaction Status Date / Time No Known Drug Allergies Allergy Verified 02/18/24 21:10 Exam Constitutional Vital Signs, click to edit/add: Last Vital Signs Temp 97.7 F 04/18/24 07:18 Pulse 82 04/18/24 07:18 Resp 14 04/18/24 07:18 BP 177/65 H 04/18/24 07:18 Pulse Ox 98 04/18/24 07:18 O2 Del Method Room Air 04/17/24 20:40 Documenting provider has reviewed patient's vital signs: yes Common normals: apparent distress (Appears to be in painful distress with arms over abdomen and moaning) Chest Common normals: inspection of chest normal and palpation of chest normal Respiratory Common normals: normal respiratory effort, no retractions and clear to auscultation bilaterally Cardio Common normals: regular rate and regular rhythm GI Common normals: Normal to inspection, nondistended, normoactive bowel sounds present and soft to palpation; tender Palpation: tender (Mild diffuse tenderness based on grimace); no rebound tenderness present Neuro Common normals: not oriented x3 Sensorium/orientation: awake; not alert, not oriented to person, not oriented to place and not oriented to time Other: Right-sided weakness, this is from her previous stroke Results Labs Labs: Short CBC 04/17/24 04/18/24 Range/Units 15:46 04:08 WBC 9.8 8.6 (4.0-11.0) 10^3/uL Hgb 11.9 L 11.3 L (12.0-16.0) g/dL Hct 38.7 37.0 (36.0-48.0) % Plt Count 344 307 (150-450) 10^3/uL BMP 04/17/24 04/18/24 15:46 04:08 Sodium 145 145 Potassium 3.9 3.9 Chloride 110 H 113 H Carbon Dioxide 24.4 23.9 BUN 18.0 18.0 Creatinine 1.38 H 1.20 H Glucose 101 87 Calcium 9.5 9.1 Liver Function 04/17/24 04/18/24 Range/Units 15:46 04:08 Total Bilirubin 0.5 0.4 (0.2-1.0) mg/dL AST 15 14 L (15-37) U/L ALT 9 L 8 L (14-59) U/L Alkaline Phosphatase 112 97 (46-116) U/L Albumin 2.7 L 2.4 L (3.4-5.0) g/dL Urine 04/17/24 Range/Units 15:50 Urine Color Lt. yellow (YELLOW) Urine Clarity Clear (CLEAR) Urine pH 7.0 (5.0-9.0) Ur Specific [place] 1.020 (1.005-1.025) Urine Protein 100 A (NEG/TRACE) mg/dL Urine Glucose (UA) Negative (NEGATIVE) mg/dL Assessment and Plan Assessment and Plan (1) Altered mental status: (2) Subarachnoid hemorrhage: (3) Unwitnessed fall: (4) JAMEE (acute kidney injury): (5) Contusion of hip, left: Plan Admission findings: Altered mental status without clear etiology-check on urine culture, with progression of symptoms and patient now seeming more uncomfortable, check flat abdominal x-ray and repeat CT scan, with history of bleed. Compared to ER record. Check thyroid levels, consult to teleneurology. Infectious etiology still a possibility, expanded antibiotic coverage, white blood cell count is normal but does possess a left shift Bradycardia-this is likely related to her previous strokes. Family not interested in progressing with pacemaker Uncontrolled hypertension-as needed hydralazine Iron deficiency anemia-monitor daily-Down somewhat today Acute kidney injury-improved today Admission status: Initially placed in observation status, with progression of symptoms, deterioration of altered mental status, increasing in pain, need for IV antibiotics, her medically necessary treatment will span 2 midnights. Will change patient to inpatient status Urinary Catheter Management Urinary Catheter Management Straight: Cath placed during this visit: yes Urethral indwelling: No Insertion date: 04/17/24 Insertion time: 15:55
[2024-04-18] MEDS: ZIPRASIDONE MESYLATE 20 MG, WATER FOR INJECTION,STERILE 1.2 ML IM (10:13)
--- NOTE | 2024-04-18 10:43 | XR_ITS ---
The [address] [address] Patient Name: CRUZ GREEN MRN: [id number] date: 1945 Sex: F Assigned Patient Location: ICU Current Patient Location: [place] Accession/Order Number: [id number] Exam Date: 04/18/2024 11:15 Report Date: 04/18/2024 14:05 At the request of: AVIVA GARCIA Procedure: XR chest 1V EXAM: XR abdomen 1V, XR chest 1V HISTORY: Abdomen pain COMPARISON: Chest radiograph, yesterday at 6:12 PM TECHNIQUE: Portable view of the chest and abdomen obtained FINDINGS: Chronic cardiomegaly. Increasing vascular cephalization. No focal infiltrate. No large effusion. Prior median sternotomy. Nonobstructive bowel gas pattern. No pathologic calcifications. There are surgical clips in the right upper quadrant. XR/XR chest 1V IMPRESSION: 1. Cardiomegaly and worsening mild congestive pattern. 2. Nonobstructive bowel gas pattern. Electronically authenticated by: STEPAN MASSEY Date: 04/18/2024 14:05
[2024-04-18] MEDS: DICLOFENAC SODIUM 1% 100 GM TUBE TOPICAL (12:37)
[2024-04-18] MEDS: KETOROLAC TROMETHAMINE 30 MG/ML VIAL 15 MG IVP (14:22)
[2024-04-18] MEDS: ACETAMINOPHEN 1,000 MG/100 ML PREMIX 400 MG IV (22:58)
--- NOTE | 2024-04-18 23:32 | PC.NURSE ---
pt crying while laying in bed but unable to verbalize what is wrong. [facility] messaged to see if we could get an order for IV tylenol. Hospitalist placed order and medication was administered by LUIS Anderson, night warehouse selector.
[2024-04-19] MEDS: MORPHINE SULFATE 2 MG/ML SYRINGE IV ×2 (01:47→06:35)
[2024-04-19 05:11] VITALS: BP 158/74; PULSE 74; TEMP 36.9; O2SAT 94
[2024-04-19 05:13] LABS: Basophils Percent Auto 0.2 % (0.2-2.0); Eosinophils Absolute Auto 0.2 10^3/uL (0.0-0.7); Eosinophils Percent Auto 1.7 % (0.9-7.0); Hematocrit 42.3 % (36.0-48.0); Hemoglobin 12.5 g/dL (12.0-16.0); Immature Granulocytes Abs Auto 0.03 10^3/uL (0.00-0.03); Immature Granulocytes Pct Auto 0.3 % (0.0-0.5); Lymphocytes Percent Auto 19.9 % (20.5-60.0); Mean Corpuscular HGB Conc 29.6 g/dL (29.9-35.2); Mean Corpuscular Hemoglobin 27.4 pg (26.7-34.0); Mean Corpuscular Volume 92.6 fL (81.0-99.0); Mean Platelet Volume 9.4 fL (9.5-13.5); Monocytes Absolute Auto 0.8 10^3/uL (0.3-0.8); Monocytes Percent Auto 7.6 % (1.7-12.0); Neutrophils Absolute Auto 7.1 10^3/uL (1.4-6.5); Neutrophils Percent Auto 70.3 % (43.0-75.0); Platelet Count 314 10^3/uL (150-450); Red Blood Count 4.57 10^6/uL (4.20-5.40); Red Cell Distribution Width 13.9 % (11.0-15.0); White Blood Count 10.2 10^3/uL (4.0-11.0)
[2024-04-19] MEDS: ACETAMINOPHEN 1,000 MG/100 ML PREMIX 400 MG IV (05:16)
[2024-04-19] MEDS: DICLOFENAC SODIUM 1% 100 GM TUBE TOPICAL (05:18)
[2024-04-19 05:38] LABS: Alanine Aminotransferase 8 U/L (14-59); Albumin Globulin Ratio 0.7; Albumin Level 2.5 g/dL (3.4-5.0); Alkaline Phosphatase 103 U/L (46-116); Anion Gap 15.2; Aspartate Amino Transferase 23 U/L (15-37); BUN Creatinine Ratio 14.8; Bilirubin Total 0.5 mg/dL (0.2-1.0); Calcium 9.3 mg/dL (8.5-10.1); Carbon Dioxide 21.7 mmol/L (21.0-32.0); Chloride 110 mmol/L (98-107); Estimated GFR (African America 55 (>=60); Estimated GFR (Non-African Ame 45 (>=60); Globulin 3.4 g/dL; Glucose 69 mg/dL (74-106); Potassium 3.9 mmol/L (3.5-5.1); Sodium 143 mmol/L (136-145); Total Protein 5.9 g/dL (6.4-8.2)
[2024-04-19] MEDS: GLUCAGON 1 MG/ML VIAL IM (06:36)
[2024-04-19 06:52] LABS: Glucometer 65 mg/dL (74-106)
[2024-04-19] MEDS: DEXTROSE 50 %-WATER 25 GM/50 ML SYRINGE IV (06:55)
[2024-04-19 07:19] LABS: Glucometer 168 mg/dL (74-106)
--- NOTE | 2024-04-19 07:57 | CT_ITS ---
[address] [address] Patient Name: CRUZ GREEN MRN: [id number] date: 1945 Sex: F Assigned Patient Location: MS Current Patient Location: [place] Accession/Order Number: [id number] Exam Date: 04/19/2024 08:33 Report Date: 04/19/2024 09:05 At the request of: AVIVA GARCIA Procedure: CT abdomen pelvis wo con EXAMINATION: CT abdomen pelvis wo con HISTORY: abd pain COMPARISON: 04/18/2024 plain x-ray TECHNIQUE: Axial, Coronal, and Sagittal images were created without IV contrast. Dose reduction techniques were achieved by using automated exposure control and/or adjustment of mA and/or kV according to patient size and/or use of iterative reconstruction technique. FINDINGS: LUNG BASES: Coronary athersclerosis. Bibasilar atelectasis. 5mm right and 1.2 cm left pleural effusions LIVER: No enlargement, atrophy, abnormal density, or significant focal lesion. BILIARY: Surgical clips from cholecystectomy. PANCREAS: No lesion, fluid collection, ductal dilatation, or atrophy. SPLEEN: No enlargement or focal lesion. ADRENALS: No mass or enlargement. KIDNEYS: Bilateral atrophy. No hydronephrosis or obstructive stones BOWEL/MESENTERY: Colonic diverticulosis without diverticulitis. No obstructive gas pattern. Sigmoid suture lines AORTA/VASCULAR: No aneurysm. Moderate calcific athersclerosis. RETROPERITONEUM: No mass or adenopathy. LYMPH NODES: No adenopathy. URINARY BLADDER: No visible focal wall thickening, lesion, or calculus.Moderate distension PELVIC ORGANS: hysterectomy ABDOMINAL WALL: No mass or hernia. BONES: No bony lesion or fracture. OTHER: Negative. CT/CT abdomen pelvis wo con IMPRESSION: Moderate distention of the urinary bladder Non obstructive bowel gas pattern Electronically authenticated by: MAE CANALES Date: 04/19/2024 09:05
--- NOTE | 2024-04-19 08:51 | CM.NOTE ---
Rounds made with Dr. Valladares. Hospice Consult today with family. Dr. Valladares to adjust medications.
[2024-04-19 08:55] LABS: Glucometer 91 mg/dL (74-106)
--- NOTE | 2024-04-19 08:58 | P.PN_ITS ---
Progress Note: Subjective Subjective Interval history: Crying but easily consolable Exam Constitutional Vital Signs, click to edit/add: Last Vital Signs Temp 98.4 F 04/19/24 05:11 Pulse 74 04/19/24 05:11 Resp 18 04/19/24 05:11 BP 158/74 H 04/19/24 05:11 Pulse Ox 94 L 04/19/24 05:11 O2 Del Method Room Air 04/19/24 05:11 Documenting provider has reviewed patient's vital signs: yes Common normals: apparent distress (Appears to be in painful distress with arms over abdomen and moaning) Chest Common normals: inspection of chest normal and palpation of chest normal Respiratory Common normals: normal respiratory effort, no retractions and clear to auscultation bilaterally Cardio Common normals: regular rate and regular rhythm GI Common normals: Normal to inspection, nondistended, normoactive bowel sounds present and soft to palpation; tender Palpation: tender (Mild diffuse tenderness based on grimace); no rebound tenderness present Neuro Common normals: not oriented x3 Sensorium/orientation: awake; not alert, not oriented to person, not oriented to place and not oriented to time Other: Right-sided weakness, this is from her previous stroke Progress Note: Objective Labs Labs: Short CBC 04/19/24 Range/Units 05:00 WBC 10.2 (4.0-11.0) 10^3/uL Hgb 12.5 (12.0-16.0) g/dL Hct 42.3 (36.0-48.0) % Plt Count 314 (150-450) 10^3/uL BMP 04/19/24 05:00 Sodium 143 Potassium 3.9 Chloride 110 H Carbon Dioxide 21.7 BUN 17.0 Creatinine 1.15 H Glucose 69 L Calcium 9.3 Liver Function 04/19/24 Range/Units 05:00 Total Bilirubin 0.5 (0.2-1.0) mg/dL AST 23 (15-37) U/L ALT 8 L (14-59) U/L Alkaline Phosphatase 103 (46-116) U/L Albumin 2.5 L (3.4-5.0) g/dL Progress Note: A&P Assessment and Plan (1) Altered mental status: (2) Subarachnoid hemorrhage: (3) Unwitnessed fall: (4) JAMEE (acute kidney injury): (5) Contusion of hip, left: Plan Admission findings: Altered mental status without clear etiology-check on urine culture, with progression of symptoms and patient now seeming more uncomfortable, Compared to ER record. Check thyroid levels, consult to teleneurology. Infectious etiology still a possibility, expanded antibiotic coverage, white blood cell count is normal but does possess a left shift -white blood cell count still normal, check and urine culture later this morning, check CT scan of abdomen if she is more tender in her abdomen, will do without contrast, understanding family looking for hospice but need to make sure we have all the information for that Bradycardia-this is likely related to her previous strokes. Family not interested in progressing with pacemaker-somewhat better today Uncontrolled hypertension-as needed hydralazine Iron deficiency anemia-monitor daily--better today Acute kidney injury-improved again today Hyperglycemia-cut back on insulin sliding scale Admission status: Initially placed in observation status, with progression of symptoms, deterioration of altered mental status, increasing in pain, need for IV antibiotics, her medically necessary treatment will span 2 midnights. Will change patient to inpatient status, family discussed with hospice likely today Urinary Catheter Management Urinary Catheter Management Straight: Cath placed during this visit: yes Urethral indwelling: No Insertion date: 04/19/24 Insertion time: 02:00
--- NOTE | 2024-04-19 09:40 | SWNOTE1 ---
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 Pt and family meeting with hospice today between 9:30-10. SW to find out which hospice and keep [facility] updated with plan.
--- NOTE | 2024-04-19 10:01 | P.DS_ITS ---
DS: Providers Provider Date of admission: 04/18/24 10:57 Primary care physician: Dorian Harrison MD Consults: 04/17/24 Consult to Dietitian Routine Reason for consultation: unable to eat or drink for 48 hours plus Has provider been notified: Yes 04/17/24 19:15 Clinical Bedside Swallow Eval and Treat Routine Reason for consultation: aphasia - please check first before liquids Has provider been notified: No 04/17/24 19:20 Physical Therapy Eval and Treat Routine Reason for consultation: weakness; s/p CVA w/R-side weakness/aphasia Has provider been notified: No 04/18/24 Consult to Hospice Routine Reason for consultation: decline in condition 04/18/24 09:20 Consult to TeleNeurology Routine Reason for consultation: AMS Has provider been notified: No DS: Diagnosis Discharge Diagnosis (1) Altered mental status: (2) Subarachnoid hemorrhage: (3) Unwitnessed fall: (4) JAMEE (acute kidney injury): (5) Contusion of hip, left: Plan Admission findings: Altered mental status without clear etiology-stable but not improved at the time of discharge Bradycardia-this is likely related to her previous strokes. Improved at the time of discharge Uncontrolled hypertension-stable at the time of discharge Iron deficiency anemia-monitor daily-stable at the time of discharge Acute kidney injury-improving at the time of discharge Hyperglycemia-cut back on insulin sliding scale Admission status: Initially placed in observation status, with progression of symptoms, deterioration of altered mental status, increasing in pain, need for IV antibiotics, her medically necessary treatment will span 2 midnights. Will change patient to inpatient status, discharging back to skilled nursing with hospice DS: Summary Hospital Course Hospital Course: Patient was admitted with increasing change in mental status. This is felt to be related to a urinary tract infection but urinalysis here was unremarkable. Repeat CT scan of the brain x 2 showed no change, no acute bleed, CT scan of abdomen secondary to the abdominal pain is pending at the time of discharge although family may decide to not do the CT scan as at this point with patient's lack of improvement they are discussing with hospice. She will be transferred back to her skilled nursing with hospice. Hospice and PCP can decide on medications to continue when she returns to the skilled nursing. Status at Discharge Overall status at discharge: patient is not back to baseline Time Spent with Patient Time attestation: Total time spent providing and/or coordinating discharge services: Time spent: greater than 30 minutes Exam Constitutional Vital Signs, click to edit/add: Last Vital Signs Temp 98.4 F 04/19/24 05:11 Pulse 74 04/19/24 05:11 Resp 18 04/19/24 05:11 BP 158/74 H 04/19/24 05:11 Pulse Ox 94 L 04/19/24 05:11 O2 Del Method Room Air 04/19/24 05:11 Documenting provider has reviewed patient's vital signs: yes Common normals: apparent distress (Appears to be in painful distress with arms over abdomen and moaning) Chest Common normals: inspection of chest normal and palpation of chest normal Respiratory Common normals: normal respiratory effort, no retractions and clear to auscultation bilaterally Cardio Common normals: regular rate and regular rhythm GI Common normals: Normal to inspection, nondistended, normoactive bowel sounds present and soft to palpation; tender Palpation: tender (Mild diffuse tenderness based on grimace); no rebound tenderness present Neuro Common normals: not oriented x3 Sensorium/orientation: awake; not alert, not oriented to person, not oriented to place and not oriented to time Other: Right-sided weakness, this is from her previous stroke DS: Data Data Completed and Pending Labs on day of discharge: Labs from last 24 hours 04/19/24 04/19/24 04/19/24 07:17 06:51 05:00 WBC 10.2 RBC 4.57 Hgb 12.5 Hct 42.3 MCV 92.6 MCH 27.4 MCHC 29.6 L RDW 13.9 Plt Count 314 MPV 9.4 L Neut % (Auto) 70.3 Lymph % (Auto) 19.9 L Dare % (Auto) 7.6 Eos % (Auto) 1.7 Baso % (Auto) 0.2 Neut # (Auto) 7.1 H Lymph # (Auto) 2.0 Dare # (Auto) 0.8 Eos # (Auto) 0.2 Baso # (Auto) 0.0 Abs Immat Gran (auto) 0.03 Imm/Tot Granulo (auto) 0.3 Sodium 143 Potassium 3.9 Chloride 110 H Carbon Dioxide 21.7 Anion Gap 15.2 BUN 17.0 Creatinine 1.15 H Est GFR ( Amer) 55 L Est GFR (Non-Af Amer) 45 L BUN/Creatinine Ratio 14.8 Glucose 69 L Calcium 9.3 Total Bilirubin 0.5 AST 23 ALT 8 L Alkaline Phosphatase 103 Total Protein 5.9 L Albumin 2.5 L Globulin 3.4 Albumin/Globulin Ratio 0.7 POC Glucose 168 H 65 L 04/17/24 04/17/24 15:09 15:09 WBC RBC Hgb Hct MCV MCH MCHC RDW Plt Count MPV Neut % (Auto) Lymph % (Auto) Dare % (Auto) Eos % (Auto) Baso % (Auto) Neut # (Auto) Lymph # (Auto) Dare # (Auto) Eos # (Auto) Baso # (Auto) Abs Immat Gran (auto) Imm/Tot Granulo (auto) Sodium Potassium Chloride Carbon Dioxide Anion Gap BUN Creatinine Est GFR ( Amer) Est GFR (Non-Af Amer) BUN/Creatinine Ratio Glucose Calcium Total Bilirubin AST ALT Alkaline Phosphatase Total Protein Albumin Globulin Albumin/Globulin Ratio POC Glucose 91 91 Preliminary micro results at discharge 04/17/24 15:50 Urine Culture - Preliminary Urine,Clean Catch Discharge Plan Discharge Disposition: Hospice - Medical Facility Discharge Medications: Continued levetiracetam 100 mg/mL solution 750 mg PO Q12H mirtazapine 15 mg tablet 15 mg PO DAILY oxycodone 5 mg tablet 5 mg PO Q8H PRN (Reason: pain) Brilinta 90 mg tablet 90 mg PO DAILY Hold Instructions: Until you follow up with Neurology to discuss aspirin 81 mg capsule 81 mg PO DAILY Hold Instructions: Until you follow up with Neurology to discuss diclofenac sodium [Aspercreme Arthritis Pain] 1 % gel 4 g topical QID Rx Instructions: apply to single knee, ankle, foot; for foot includes sole/toes/top of foot cholecalciferol (vitamin D3) [D3-2000] 50 mcg (2,000 unit) capsule 50 mcg PO DAILY lidocaine [Aspercreme (lidocaine)] 4 % adhesive patch,medicated 1 patch topical DAILY Rx Instructions: may leave on for up to 12 hrs atorvastatin 80 mg tablet 80 mg PO BEDTIME levothyroxine 75 mcg tablet 75 mcg PO DAILY ciprofloxacin HCl [Cipro] 500 mg tablet 500 mg PO BID baclofen 10 mg tablet 10 mg PO BID acetaminophen [Non-Aspirin] 325 mg tablet 650 mg PO Q6H PRN (Reason: fever or pain) Print Language: [place] 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
--- NOTE | 2024-04-19 10:17 | SWNOTE1 ---
SW stopped in to speak with family and [facility]. 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 SW called [facility] and they do not have transport until 9:30 pm. SW called [facility] and they have availability but need SW to fill out paperwork and they will call back with time. SW filled out forms and faxed to [facility]. LACEY notified [place] of plan and emailed over updated and dc med rec.
--- NOTE | 2024-04-19 10:30 | PC.NURSE ---
Report called to [facility].
--- NOTE | 2024-04-19 11:15 | SWNOTE1 ---
LACEY spoke with [facility] and they will be here around 11:30am. LACEY let nursing, family, and [place] know time. SW took packet out to med/surge floor. 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 DC med rec sent to [facility] along with other updates from pt's stay.
--- NOTE | 2024-04-19 11:16 | SWNOTE1 ---
Important Message from [employer] reviewed and discussed with patient's son in law. Pt's son in law verbalized understanding and signed the form. Original given to patient 's son in law and copy placed in patient?s chart.
[2024-04-19] MEDS: LORAZEPAM 2 MG/ML VIAL 1 MG IV (11:18)
--- NOTE | 2024-04-19 12:23 | NUTR.NU ---
Dietitian consult ordered d/t no oral intake >48 hours. Pt is aphasic w/current dx of AMS and h/o CVA. Will assess pt's needs following [employer] evaluation Will continue to follow PRN. Addendum: Swallow eval not completed d/t Hospice consult. Pt was discharged to LTC w/hospice care @ 1131 today.
== END 2024-04-19 11:25 | disposition hospice, home (50) | DRG 690 ==
LOC: ER 19:17 → ICU 20:04 → MS 04-18 12:55
PROVIDERS: Nurse Practitioner Acute Care; Admitting Provider Family Medicine; Emergency Provider Emergency Medicine Emergency Medical Services; PCP Family Medicine; Visit Provider Family Medicine
DX: N39.0 Urinary tract infection, site not specified (principal); N17.9 Acute kidney failure, unspecified; I69.251 Hemiplegia and hemiparesis following other nontraumatic intracranial hemorrhage affecting right dominant side; I69.220 Aphasia following other nontraumatic intracranial hemorrhage; D50.9 Iron deficiency anemia, unspecified; R73.9 Hyperglycemia, unspecified; E78.5 Hyperlipidemia, unspecified; I12.9 Hypertensive chronic kidney disease with stage 1 through stage 4 chronic kidney disease, or unspecified chronic kidney disease; N18.31 Chronic kidney disease, stage 3a; S70.02XA Contusion of left hip, initial encounter; W19.XXXA Unspecified fall, initial encounter; Z66 Do not resuscitate; Z79.82 Long term (current) use of aspirin; Z79.899 Other long term (current) drug therapy; Z79.890 Hormone replacement therapy
CPT/HCPCS: 36415; 51702; 51798; 70450; 71045; 74018; 74176; 80053; 81001; 84436; 84443; 84484; 85025; 87086; 93005; 96361; 96365; 96366; 96367; 96368; 96372; 96375; 96376; 99285; G0378; J0131; J0696; J1610; J1885; J2060; J2270; J3486